=== PATIENT | female | born 1950 | race Caucasian/White ===

== ENCOUNTER 2017-04-18 13:48 | Outpatient (RCR) | payer MEDICARE, SELFPAY ==
[2017-03-22 18:18] LABS: Prothrombin Time (Protime)PT. 37.6 SECONDS (11.7-14.9)
[2017-03-22 18:21] LABS: International Normalized Ratio 4.1
[2017-04-06 16:35] LABS: Prothrombin Time (Protime)PT. 29.6 SECONDS (11.7-14.9)
[2017-04-06 18:10] LABS: Anion Gap 9 (5-15); BUN 23 mg/dL (7-18); BUN/Creat Ratio 18.1 RATIO (10-20); Calcium,Total 8.5 mg/dL (8.5-10.1); Chloride 103 mmol/L (98-107); Creatinine, Serum 1.27 mg/dL (0.55-1.02); EST Glomerular Filtration Rate 44 mL/min (>60); Est Glom Filt Rate - Afr Amer 54 mL/min (>60); Glucose 95 mg/dL (70-110); Sodium Level 140 mmol/L (136-145)
[2017-04-18 14:17] LABS: International Normalized Ratio 3.3; Prothrombin Time (Protime)PT. 32.1 SECONDS (11.7-14.9)
[2017-04-18 14:31] LABS: Anion Gap 9 (5-15); BUN 37 mg/dL (7-18); BUN/Creat Ratio 21.8 RATIO (10-20); Calcium,Total 8.7 mg/dL (8.5-10.1); Chloride 99 mmol/L (98-107); EST Glomerular Filtration Rate 32 mL/min (>60); Est Glom Filt Rate - Afr Amer 38 mL/min (>60); Glucose 342 mg/dL (70-110); Potassium 3.8 mmol/L (3.5-5.1); Sodium Level 134 mmol/L (136-145)
== END 2017-04-20 23:59 ==
LOC: INT LAB 13:48
PROVIDERS: PCP Internal Medicine; Visit Provider Internal Medicine Cardiovascular Disease
DX: I48.2 Chronic atrial fibrillation (principal)
CPT/HCPCS: 36415; 80048; 85610

== ENCOUNTER → 2017-04-22 09:03 | Day surgery (SDC) | payer MEDICARE, SELFPAY ==
[2017-04-21 12:17] VITALS: BMI 43.2
[2017-04-22 10:06] LABS: Bedside Glucose 135 mg/dL (70-110)
--- NOTE | 2017-04-22 10:51 | PCM.OP.BLANK ---
Problem List (1) Persistent atrial fibrillation Status: Chronic Operative Report Date of Procedure: 04/22/17 Cardioversion report: Patient was brought to the [facility] in the fasting state. The risks/benefits of the procedure were thoroughly explained to the patient and informed consent was obtained. The defibrillator pads were placed in the AP position and connected to the defibrillator. Mode of operation was changed to synchronized at 200 J biphasic energy delivered. With the assistance of Dr. Gustavo Schwarz the patient was given a total of 80 mg of IV propofol. Once adequate sedation was obtained, the patient was given a single 200 J biphasic synchronized shock which converted her to normal sinus rhythm on the initial attempt. Patient spontaneously awoke, moves all 4 extremities and tolerated the procedure well. Conclusions: Successful Cardizem and warfarin assisted DC cardioversion with a single 200 J biphasic synchronized shock. Patient spontaneously awoke, moves all 4 extremities and tolerated the procedure well.
--- NOTE | 2017-04-22 10:58 | OP.PCM_ITS ---
Problem List (1) Persistent atrial fibrillation Status: Chronic Operative Report Date of Procedure: 04/22/17 Cardioversion report: Patient was brought to the [facility] in the fasting state. The risks/benefits of the procedure were thoroughly explained to the patient and informed consent was obtained. The defibrillator pads were placed in the AP position and connected to the defibrillator. Mode of operation was changed to synchronized at 200 J biphasic energy delivered. With the assistance of Dr. Gustavo Schwarz the patient was given a total of 80 mg of IV propofol. Once adequate sedation was obtained, the patient was given a single 200 J biphasic synchronized shock which converted her to normal sinus rhythm on the initial attempt. Patient spontaneously awoke, moves all 4 extremities and tolerated the procedure well. Conclusions: Successful Cardizem and warfarin assisted DC cardioversion with a single 200 J biphasic synchronized shock. Patient spontaneously awoke, moves all 4 extremities and tolerated the procedure well.
--- NOTE | 2017-04-22 11:54 | PCM.OP.BLANK ---
Operative Report Date of Procedure: 04/22/17 CONSCIOUS SEDATION REPORT DATE OF SERVICE: March 22, 2017 BRIEF HISTORY OF PRESENT ILLNESS: The patient is a 66-year-old female who presented to [facility] for an elective outpatient cardioversion due to underlying atrial fibrillation. The patient is currently anticoagulated on Coumadin. She does have a history of obstructive sleep apnea and admits to current noncompliance with the use of nocturnal noninvasive positive pressure ventilation. She does have a self-reported history of COPD of unknown severity. She does not utilize supplemental oxygen at her baseline. Her most recent surface echocardiogram revealed an ejection fraction of approximately 50%. PHYSICAL EXAMINATION: VITAL SIGNS: Reviewed and were acceptable. GENERAL: The patient is an obese female, in no apparent distress, speaking in full sentences. HEENT: Normocephalic, atraumatic. Mucous membranes are moist and pink. Good mouth opening noted. Trachea is midline. Large neck circumference with redundant soft tissue CHEST: S1, S2 irregularly irregular. No murmurs, rubs or gallops were noted. LUNGS: Diminished to auscultation bilaterally without appreciable wheezes, rales or rhonchi. ABDOMEN: Soft, nontender, nondistended. Positive bowel sounds. Obese. EXTREMITIES: There is no clubbing, cyanosis or edema. ASA Class: II DESCRIPTION OF PROCEDURE: After confirmation of informed consent, the patient's anesthesia plan was reviewed in detail. Propofol was chosen. Risks and benefits were reviewed and the patient agreed to proceed. At 1032, the patient was given 80 mg of propofol. The patient achieved an appropriate level of sedation and was given a 200 joule synchronized cardioversion by Dr. Peraza at the bedside. This was successful in achieving normal sinus rhythm. The patient was monitored until 1042, at which time she reached her baseline mental status and function. The patient tolerated the procedure well. COMPLICATIONS: None ESTIMATED BLOOD LOSS: None RECOMMENDATIONS: Okay to recover in usual fashion.
--- NOTE | 2017-04-22 11:58 | OP.PCM_ITS ---
Operative Report Date of Procedure: 04/22/17 CONSCIOUS SEDATION REPORT DATE OF SERVICE: March 22, 2017 BRIEF HISTORY OF PRESENT ILLNESS: The patient is a 66-year-old female who presented to [facility] for an elective outpatient cardioversion due to underlying atrial fibrillation. The patient is currently anticoagulated on Coumadin. She does have a history of obstructive sleep apnea and admits to current noncompliance with the use of nocturnal noninvasive positive pressure ventilation. She does have a self- reported history of COPD of unknown severity. She does not utilize supplemental oxygen at her baseline. Her most recent surface echocardiogram revealed an ejection fraction of approximately 50%. PHYSICAL EXAMINATION: VITAL SIGNS: Reviewed and were acceptable. GENERAL: The patient is an obese female, in no apparent distress, speaking in full sentences. HEENT: Normocephalic, atraumatic. Mucous membranes are moist and pink. Good mouth opening noted. Trachea is midline. Large neck circumference with redundant soft tissue CHEST: S1, S2 irregularly irregular. No murmurs, rubs or gallops were noted. LUNGS: Diminished to auscultation bilaterally without appreciable wheezes, rales or rhonchi. ABDOMEN: Soft, nontender, nondistended. Positive bowel sounds. Obese. EXTREMITIES: There is no clubbing, cyanosis or edema. ASA Class: II DESCRIPTION OF PROCEDURE: After confirmation of informed consent, the patient's anesthesia plan was reviewed in detail. Propofol was chosen. Risks and benefits were reviewed and the patient agreed to proceed. At 1032, the patient was given 80 mg of propofol. The patient achieved an appropriate level of sedation and was given a 200 joule synchronized cardioversion by Dr. Peraza at the bedside. This was successful in achieving normal sinus rhythm. The patient was monitored until 1042, at which time she reached her baseline mental status and function. The patient tolerated the procedure well. COMPLICATIONS: None ESTIMATED BLOOD LOSS: None RECOMMENDATIONS: Okay to recover in usual fashion.
== END ==
PROVIDERS: Family Provider Internal Medicine; PCP Internal Medicine; Visit Provider Internal Medicine Cardiovascular Disease
DX: I48.1 Persistent atrial fibrillation (principal); Z79.01 Long term (current) use of anticoagulants; I11.0 Hypertensive heart disease with heart failure; I50.32 Chronic diastolic (congestive) heart failure; Z79.82 Long term (current) use of aspirin; Z85.828 Personal history of other malignant neoplasm of skin; Z98.890 Other specified postprocedural states; E66.01 Morbid (severe) obesity due to excess calories; Z68.41 Body mass index [BMI] 40.0-44.9, adult; E78.5 Hyperlipidemia, unspecified; G47.33 Obstructive sleep apnea (adult) (pediatric); J44.9 Chronic obstructive pulmonary disease, unspecified; E11.9 Type 2 diabetes mellitus without complications; Z79.4 Long term (current) use of insulin; D50.9 Iron deficiency anemia, unspecified; Z79.899 Other long term (current) drug therapy
CPT/HCPCS: 36416; 82962; 85610; 92960; 93005; J7040; A4216

== ENCOUNTER 2017-05-09 14:43 | Outpatient (RCR) | payer MEDICARE, SELFPAY ==
[2017-04-18 14:33] VITALS: BP 70/0; BMI 43.2
[2017-05-09 16:34] LABS: International Normalized Ratio 1.2; Prothrombin Time (Protime)PT. 14.9 SECONDS (11.7-14.9)
== END 2017-05-18 23:59 ==
LOC: INT LAB 14:43
PROVIDERS: Family Provider Internal Medicine; PCP Internal Medicine; Visit Provider Internal Medicine Cardiovascular Disease
DX: I48.2 Chronic atrial fibrillation (principal)
CPT/HCPCS: 36415; 85610

== ENCOUNTER 2017-06-16 13:57 | Outpatient (RCR) | payer MEDICARE, SELFPAY ==
[2017-06-02 17:54] LABS: International Normalized Ratio 2.1; Prothrombin Time (Protime)PT. 23.7 SECONDS (11.7-14.9)
[2017-06-16 15:41] LABS: International Normalized Ratio 1.6
== END 2017-06-18 23:59 ==
LOC: INT LAB 13:57
PROVIDERS: Family Provider Internal Medicine; PCP Internal Medicine; Visit Provider Internal Medicine Cardiovascular Disease
DX: I48.2 Chronic atrial fibrillation (principal)
CPT/HCPCS: 36415; 85610

== ENCOUNTER 2017-07-07 15:49 | Outpatient (RCR) | payer MEDICARE, SELFPAY ==
[2017-07-07 17:25] LABS: International Normalized Ratio 2.1; Prothrombin Time (Protime)PT. 23.8 SECONDS (11.7-14.9)
== END 2017-07-18 23:59 ==
LOC: INT LAB 15:49
PROVIDERS: Family Provider Internal Medicine; PCP Internal Medicine; Visit Provider Internal Medicine Cardiovascular Disease
DX: I48.2 Chronic atrial fibrillation (principal)
CPT/HCPCS: 36415; 85610

== ENCOUNTER 2017-08-03 15:02 | Emergency (ER) | payer MEDICARE, SELFPAY ==
[2017-08-03 15:03] VITALS: BP 159/81; PULSE 54; RESP 18; TEMP 36.6; O2SAT 98; BMI 44.8
[2017-08-03 15:48] LABS: Absolute Lymphocyte Count 0.92 X10^3/ul (0.83-4.51); Absolute Neutrophil Count 6.7 X10^3/uL (2.0-7.7); Basophil# 0.04 X10^3/uL; Basophil% 0.5 % (0-1); Eosinophil# 0.17 X10^3/uL; Hematocrit 35.2 % (37-47); Lymphocyte # 0.92 X10^3/ul (4.0); Mean Corp Hgb Conc 31.3 g/gl (32-36); Mean Corpuscular Hgb 28.7 pg (27.0-32.0); Mean Corpuscular Volume 91.9 fL (81-99); Mean Platelet Vol. 11.8 fl (6.2-12.0); Monocyte# 0.53 X10^3/uL; Monocyte% 6.3 % (0-10); Neutrophil # 6.68 X10^3/uL (2.7-7.7); Platelet Count 256 K/mm3 (150-450); RBC Distribution Width CV 14.3 % (11.6-14.6); RBC Distribution Width SD 46.9 fl (35.1-43.9); Red Blood Count 3.83 M/mm3 (4.2-5.4); White Blood Count 8.4 K/mm3 (4.4-11.0)
[2017-08-03 15:50] LABS: POSITIVE COUNT NO; POSITIVE DIFFERENTIAL NO; POSITIVE MORPHOLOGY NO
--- NOTE | 2017-08-03 16:31 | EKG12_ITS ---
Test Reason : EDEMA Blood Pressure : / mmHG Vent. Rate : 046 BPM Atrial Rate : 046 BPM P-R Int : 230 ms QRS Dur : 094 ms QT Int : 516 ms P-R-T Axes : 069 022 076 degrees QTc Int : 451 ms Sinus bradycardia with 1st degree A-V block with Premature atrial complexes Otherwise normal ECG Confirmed by DEDE PAREDES, FABY ([id number]), marketing editor FARNAZ BRITO ([id number] on 08/05/2017 1:38:08 PM Referred By: D Confirmed By:FABY AGUAYO MD
--- NOTE | 2017-08-03 16:34 | ED.DCSUM_ITS ---
- ER Visit Summary Date of Service: 08/03/17 Chief Complaint: Edema History of Present Illness: The patient is a 67 F with a history of CHF presenting with increased lower extremity edema and orthopnea for 3 days. She states that she has gained 8 pounds in 1 week. She has mild abdominal edema as well. She states that this feels similar to prior CHF exacerbations and she feels that she may need intravenous Lasix. She is currently on 40 mg 3 times a day. She did have an upper respiratory infection 3 weeks ago and completed a course of prednisone from her primary care physician and this mostly resolved. She has no chest pain, diaphoresis, or other anginal type symptoms. Denies any other recent illness or inciting cause. Physical Examination: Vital signs are within normal limits. She is only mildly hypertensive at 159/81. Pulse oximetry is 98% on room air. She is not in distress. Breath sounds are somewhat diminished at both bases. Mild abdominal edema. 3+ symmetric lower extremity edema. No tenderness along lower extremity venous system. Strong distal pulses. Normal neurologic examination. Test Results: CBC and BMP are both normal. Beta natruretic peptide not elevated. It was 48.5. EKG is unremarkable. Chest x-ray reveals chronic changes and cardiomegaly but no acute process. Emergency Department Course and Treatment: Was given 20 mg of IV Lasix here. Her labs are fairly unremarkable. Beta natruretic peptide is not significantly elevated. She has had no chest pain or atypical cardiac type symptoms at all. I do not feel she needs a troponin. Chest x-ray negative for significant pulmonary edema. She looks well and is feeling much better. I believe she can safely follow-up with her php wordpress developer as an outpatient. Treatment Plan: Follow-up with cardiology Disposition: Home stable condition Impression: Initial encounter lower extremity edema This note was generated with [employer] dictation software. It may contain incorrect words, spelling, and punctuation that were not noted in review of the chart prior to signing ED Disposition - Plan for ED Patient: Chief Complaint: Edema Instructions: ED Leg Swelling Bilateral Referrals: Nigel Hoang Jr., MD [Primary Care Provider] -
[2017-08-03 16:47] LABS: Anion Gap 9 (5-15); BUN 21 mg/dL (7-18); BUN/Creat Ratio 18.8 RATIO (10-20); Calcium,Total 8.4 mg/dL (8.5-10.1); Chloride 101 mmol/L (98-107); Creatinine, Serum 1.12 mg/dL (0.55-1.02); EST Glomerular Filtration Rate 51 mL/min (>60); Est Glom Filt Rate - Afr Amer 62 mL/min (>60); Estimated Creatinine Clearance 39.22 ml/min; Glucose 204 mg/dL (74-106); Potassium 3.6 mmol/L (3.5-5.1); Sodium Level 138 mmol/L (136-145)
[2017-08-03 16:50] VITALS: PULSE 49; RESP 17; O2SAT 95
--- NOTE | 2017-08-03 17:10 | RAD_ITS ---
STUDY: X-RAY CHEST REASON FOR EXAM: Female, 67 years old. Increasing edema for 3 days. Shortness of breath. TECHNIQUE: PA and lateral views of the chest. COMPARISON: January 26, 2017. FINDINGS: The lungs are clear and expanded. There is no demonstrated pleural abnormality. There is borderline cardiomegaly. Normal mediastinum and barbara. Normal visualized pulmonary arteries. Normal visualized aortic arch and descending thoracic aorta. There are diffuse degenerative changes of the visualized thoracic spine. There is degenerative osteoarthritis of the bilateral shoulders. There is no demonstrated abnormality of the visualized soft tissue structures of the upper abdomen. RAD/Chest PA and Lateral IMPRESSION: Borderline cardiomegaly without acute pulmonary disease. Electronically Signed: Josemanuel Patino DO at 17:38 EDT Tel [phone], Service support ,
[2017-08-03 17:32] LABS: International Normalized Ratio 1.3; Prothrombin Time (Protime)PT. 16.5 SECONDS (11.7-14.9)
[2017-08-03 17:57] LABS: BNP,B-Type NATRIURETIC PEPTIDE 48.5 pg/mL (0-100)
[2017-08-03 18:06] LABS: Bedside Glucose 98 mg/dL (70-110)
[2017-08-03 18:11] VITALS: BP 136/72; PULSE 50; RESP 16; O2SAT 96
[2017-08-03] MEDS: Furosemide 20 MG/2 ML VIAL IV (18:12)
== END 2017-08-03 18:22 | disposition home or self-care (01) ==
PROVIDERS: Emergency Provider Emergency Medicine; Family Provider Internal Medicine; PCP Internal Medicine
DX: R60.0 Localized edema (principal); I11.0 Hypertensive heart disease with heart failure; I50.9 Heart failure, unspecified; E78.00 Pure hypercholesterolemia, unspecified; E11.9 Type 2 diabetes mellitus without complications; E66.9 Obesity, unspecified; Z68.41 Body mass index [BMI] 40.0-44.9, adult; Z79.4 Long term (current) use of insulin; Z79.84 Long term (current) use of oral hypoglycemic drugs; Z79.82 Long term (current) use of aspirin; Z79.01 Long term (current) use of anticoagulants; Z79.899 Other long term (current) drug therapy
CPT/HCPCS: 71046; 80048; 82962; 83880; 85025; 85610; 93005; 94760; 96374; 99282; A4216; J1940

== ENCOUNTER 2017-08-23 17:10 | Observation (INO) | payer MEDICARE, SELFPAY ==
--- NOTE | 2017-08-23 22:30 | DT_ITS ---
This patient was seen during an EMR downtime August 22, 2017 - August 29, 2017. This patient may have a combination of paper and electronic documentation or all paper documentation. All documentation is viewable within the e-chart portion of [employer] for each patient visit.
[2017-08-26 09:39] LABS: Basophil% 0.7 % (0-1); Eosinophils% 2.9 % (0-5); Hematocrit 33.8 % (37-47); Hemoglobin 10.5 g/dl (12.0-15.0); Mean Corp Hgb Conc 31.1 g/gl (32-36); Mean Corpuscular Hgb 28.6 pg (27.0-32.0); Mean Corpuscular Volume 92.1 fL (81-99); Mean Platelet Vol. 12.4 fl (6.2-12.0); Neutrophil % 69.1 % (47-70); POSITIVE COUNT NO; POSITIVE DIFFERENTIAL NO; POSITIVE MORPHOLOGY NO; Platelet Count 278 K/mm3 (150-450); RBC Distribution Width CV 14.2 % (11.6-14.6); RBC Distribution Width SD 46.8 fl (35.1-43.9); Red Blood Count 3.67 M/mm3 (4.2-5.4); White Blood Count 9.8 K/mm3 (4.4-11.0)
[2017-08-26 09:40] LABS: Absolute Lymphocyte Count 1.76 X10^3/ul (0.83-4.51); Absolute Neutrophil Count 6.8 X10^3/uL (2.0-7.7); Basophil# 0.07 X10^3/uL; Eosinophil# 0.28 X10^3/uL; Lymphocyte # 1.76 X10^3/ul (4.0); Monocyte# 0.88 X10^3/uL; Neutrophil # 6.75 X10^3/uL (2.7-7.7)
[2017-08-26 09:41] LABS: Partial Thromboplast Time 58.1 Seconds (24.1-36.2); Prothrombin Time (Protime)PT. 22.4 SECONDS (11.7-14.9)
[2017-08-27 07:27] LABS: Anion Gap 10 (5-15); BUN 37 mg/dL (7-18); BUN/Creat Ratio 26.4 RATIO (10-20); Calcium,Total 7.9 mg/dL (8.5-10.1); Chloride 100 mmol/L (98-107); EST Glomerular Filtration Rate 40 mL/min (>60); Est Glom Filt Rate - Afr Amer 48 mL/min (>60); Glucose 149 mg/dL (74-106); Potassium 3.4 mmol/L (3.5-5.1); Sodium Level 141 mmol/L (136-145)
[2017-08-27 08:35] LABS: Absolute Lymphocyte Count 0.95 X10^3/ul (0.83-4.51); Absolute Neutrophil Count 4.9 X10^3/uL (2.0-7.7); Basophil% 0.3 % (0-1); Hematocrit 29.5 % (37-47); Hemoglobin 9.3 g/dl (12.0-15.0); Lymphocyte # 0.95 X10^3/ul (4.0); Lymphocyte % 14.5 % (19-41); Mean Corp Hgb Conc 31.5 g/gl (32-36); Mean Corpuscular Hgb 27.9 pg (27.0-32.0); Mean Corpuscular Volume 88.6 fL (81-99); Mean Platelet Vol. 11.5 fl (6.2-12.0); Monocyte% 8.7 % (0-10); Neutrophil # 4.85 X10^3/uL (2.7-7.7); Neutrophil % 74.3 % (47-70); POSITIVE COUNT NO; POSITIVE DIFFERENTIAL NO; POSITIVE MORPHOLOGY NO; Platelet Count 227 K/mm3 (150-450); RBC Distribution Width CV 14.3 % (11.6-14.6); RBC Distribution Width SD 46.6 fl (35.1-43.9); Red Blood Count 3.33 M/mm3 (4.2-5.4); White Blood Count 6.5 K/mm3 (4.4-11.0)
[2017-08-27 08:36] LABS: Basophil# 0.02 X10^3/uL; Eosinophil# 0.13 X10^3/uL; International Normalized Ratio 1.8; Monocyte# 0.57 X10^3/uL; Prothrombin Time (Protime)PT. 21.2 SECONDS (11.7-14.9)
[2017-08-30 13:24] LABS: Bedside Glucose 143 mg/dL (70-110)
[2017-08-30 13:25] LABS: Bedside Glucose 158 mg/dL (70-110)
== END 2017-08-24 14:02 | disposition home or self-care (01) ==
LOC: ED 08-24 16:08 → MS3 08-24 16:15
PROVIDERS: Emergency Medicine; Family Medicine; Admitting Provider Obstetrics & Gynecology; Family Provider Internal Medicine; PCP Internal Medicine; Visit Provider Obstetrics & Gynecology
DX: S31.41XA Laceration without foreign body of vagina and vulva, initial encounter (principal); D62 Acute posthemorrhagic anemia; D64.9 Anemia, unspecified; I48.0 Paroxysmal atrial fibrillation; I11.0 Hypertensive heart disease with heart failure; I50.9 Heart failure, unspecified; E11.9 Type 2 diabetes mellitus without complications; J44.9 Chronic obstructive pulmonary disease, unspecified; E66.01 Morbid (severe) obesity due to excess calories; G47.33 Obstructive sleep apnea (adult) (pediatric); E78.5 Hyperlipidemia, unspecified; K21.9 Gastro-esophageal reflux disease without esophagitis; Z85.828 Personal history of other malignant neoplasm of skin; Z79.4 Long term (current) use of insulin; Z79.01 Long term (current) use of anticoagulants; Z79.82 Long term (current) use of aspirin; Z79.891 Long term (current) use of opiate analgesic; Z79.899 Other long term (current) drug therapy; X58.XXXA Exposure to other specified factors, initial encounter; Y93.89 Activity, other specified; Y92.009 Unspecified place in unspecified non-institutional (private) residence as the place of occurrence of the external cause; Y99.8 Other external cause status
CPT/HCPCS: 51702; 80048; 82962; 85025; 85610; 85730; 94640; 94660; 96360; 96361; 99218; 99285; J7030; A4216; G0378

== ENCOUNTER 2017-09-28 14:06 | Emergency (ER) | payer MEDICARE, SELFPAY ==
[2017-09-28 14:07] VITALS: BP 153/69; PULSE 55; RESP 18; TEMP 36.6; O2SAT 98; BMI 43.2
--- NOTE | 2017-09-28 14:52 | CT_ITS ---
STUDY: CT PARANASAL SINUSES WITH CONTRAST REASON FOR EXAM: Female, 67 years old. Right facial pain. Unable to open the mouth. History of TMJ arthritis. RADIATION DOSAGE (If Supplied By Facility): CTDIvol = ( 29.38 ) mGy, DLP = ( 608.99 ) mGycm TECHNIQUE: The patient was scanned in a multi-detector CT scanner. High resolution transaxial imaging was performed following the intravenous administration of 50 ml of Isovue 370 contrast material. Sagittal and coronal images were reconstructed. Individualized dose optimization techniques were used for this CT. COMPARISON: None. FINDINGS: FRONTAL SINUSES: Normal development and aeration of the bilateral frontal sinuses without mucosal inflammatory disease. ETHMOIDAL SINUSES: Normal development and aeration of the bilateral ethmoidal air cells without mucosal inflammatory disease. MAXILLARY SINUSES: Minimal mucosal thickening of the inferior right maxillary sinus and around the maxillary ostia and infundibulum. Minimal area of mucosal thickening in the inferior left maxillary sinus and around the ostium and infundibulum. SPHENOIDAL SINUSES: Mild area of mucosal thickening in the right sphenoid sinus. OMU: Normal aeration of the bilateral maxillary infundibulum. Normal uncinate process, ethmoid bulla, and hiatus semilunaris. MIDDLE TURBINATES: Partially paradoxical middle turbinates. INFERIOR TURBINATES: Normal bilateral inferior turbinates. NASAL SEPTUM: Large anterior nasal septal defect/cartilaginous septum with a normal bony nasal septum. Minor left deviation of the posterior bony septum. Normal anterior cranial fossa, delfino marquise and cribriform plate. Normal bilateral orbital contents. Normal nasopharynx without adenoidal pad hypertrophy, or a posterior nasopharyngeal retention cyst. The right temporomandibular joint is located. There is a marked narrowing and a prominent anterior osteophyte of the condyle and flattening of the condyle in general. The left temporomandibular joint is also narrowed. There is less flattening and osteophytic spurring of the condyle but the condyle subluxed anteriorly slightly. CT/Sinus/Facial Bone WITH Contras IMPRESSION: Advanced arthritic changes of the right temporomandibular joint with chronic flattening of the articular surface and a prominent anterior osteophyte. The right temporomandibular joint is located in a closed position. Moderate arthritic changes of the left mandibular condyle with slight anterior subluxation. Nonreduction with the mouth closed suggests disc pathology. Mild mucosal thickening of the right maxillary sinus inferiorly and around the maxillary ostium and infundibulum. Mild mucosal thickening of the left maxillary sinus inferiorly and around the maxillary ostium and infundibulum. Mild area of mucosal thickening in the right sphenoid sinus. Large defect of the cartilaginous septum. Slight left deviation of the bony nasal septum. Partially paradoxical middle turbinates. Electronically Signed: Agatha Cain MD at 18:06 EDT , Service support ,
[2017-09-28] MEDS: Ondansetron 4 MG/2 ML Vial IV (15:44)
[2017-09-28] MEDS: Morphine 4 MG/ML Syringe IV (15:44)
[2017-09-28 15:46] LABS: Absolute Neutrophil Count 6.6 X10^3/uL (2.0-7.7); Basophil# 0.02 X10^3/uL; Basophil% 0.2 % (0-1); Eosinophil# 0.18 X10^3/uL; Eosinophils% 2.2 % (0-5); Hematocrit 32.8 % (37-47); Hemoglobin 10.1 g/dl (12.0-15.0); Lymphocyte % 8.7 % (19-41); Mean Corp Hgb Conc 30.8 g/gl (32-36); Mean Corpuscular Hgb 27.7 pg (27.0-32.0); Mean Corpuscular Volume 90.1 fL (81-99); Mean Platelet Vol. 11.4 fl (6.2-12.0); Monocyte# 0.58 X10^3/uL; Monocyte% 7.2 % (0-10); Neutrophil # 6.59 X10^3/uL (2.7-7.7); Neutrophil % 81.6 % (47-70); Platelet Count 240 K/mm3 (150-450); RBC Distribution Width CV 13.8 % (11.6-14.6); RBC Distribution Width SD 45.3 fl (35.1-43.9); Red Blood Count 3.64 M/mm3 (4.2-5.4); White Blood Count 8.1 K/mm3 (4.4-11.0)
[2017-09-28 15:47] LABS: POSITIVE COUNT NO; POSITIVE DIFFERENTIAL NO; POSITIVE MORPHOLOGY NO
[2017-09-28 16:00] LABS: Anion Gap 7 (5-15); BUN 15 mg/dL (7-18); BUN/Creat Ratio 13.4 RATIO (10-20); Calcium,Total 8.3 mg/dL (8.5-10.1); Chloride 104 mmol/L (98-107); Creatinine, Serum 1.12 mg/dL (0.55-1.02); EST Glomerular Filtration Rate 51 mL/min (>60); Est Glom Filt Rate - Afr Amer 62 mL/min (>60); Estimated Creatinine Clearance 39.22 ml/min; Glucose 272 mg/dL (74-106); Potassium 3.6 mmol/L (3.5-5.1); Sodium Level 142 mmol/L (136-145)
[2017-09-28 16:07] LABS: Erythrocyte Sedimentation Rate 26 mm/hr (0-30)
--- NOTE | 2017-09-28 16:07 | ED.VISSUMM ---
- ER Visit Summary Date of Service: 09/28/17: Patient was checked out to me to check CT results. CT facial shows advanced arthritic changes of the right temporomandibular joint with chronic flattening of the articular surface and a prominent anterior osteophyte. The right temporomandibular joint is located in a closed position. Moderate arthritic changes of the left mandibular condyle with slight anterior subluxation. Nonreduction with the mouth closed suggests disc pathology. Mild mucosal thickening of the right maxillary sinus inferiorly and around the maxillary ostium and infundibulum. Mild mucosal thickening of the left maxillary sinus inferiorly and around the maxillary ostium and infundibulum. Mild area of mucosal thickening in the right sphenoid sinus. Large defect of the cartilaginous septum. Slight left deviation of the bony nasal septum. Partially paradoxical middle turbinates. She has a scheduled appointment with her surgeon tomorrow at 3 PM. She will keep this appointment. She is advised return to ED if worsening complaints. This note was generated with [employer] dictation software. It may contain incorrect words, spelling, and punctuation that were not noted in review of the chart prior to signing <CintiaLinda - Last Filed: 09/28/17 18:30> - ER Visit Summary Date of Service: 09/28/17 Chief Complaint: Right jaw pain History of Present Illness: The patient is a 67 F who presents for right-sided jaw pain that is gradually worsening over 2 months. 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 There is a mass that is recurrent, and she had a needle biopsy on it that showed it was not currently cancerous. For the last 2 months she has been having gradually worsening dull ache in the right jaw that is gradually worsened and now patient is having difficulty opening her mouth and chewing. She saw her surgeon Dr. Jayden Cano 1 week ago and was told she has arthritis in the joint. She was referred for physical therapy but the patient states she cannot afford the gas to go there 3 times a week. Her baseline opening of her jaw is 41 cm after last surgery and last week was 21 cm. Patient denies fever, sore throat, difficulty swallowing, chest pain or shortness of breath. She is on Percocet for her chronic pain issues but not have any adequate pain control on her normal pain regimen. Patient is on Coumadin secondary to history of CHF. Patient also has history of diabetes, hypertension, osteoarthritis and skin cancer. Physical Examination: Patient is awake and alert sitting in bed, multiple scars to the soft tissues of the face, tender firm palpable mass to the right lower lip with associated surgical scar. Patient opens mouth actively a few centimeters and is able to passively open the mouth approximately 12 cm before crying out in pain. Tenderness to palpation of the TMJ without any fluctuance, erythema or induration. Neck has tenderness in the right anterior cervical chain region. No obvious palpable masses, unable to completely evaluate the oropharynx secondary to trismus. Patient has multiple contusions of the extremities, including a large area of ecchymosis on the left lower anterior gold. Test Results: [] Emergency Department Course and Treatment: Patient presents with gradually worsening trismus and jaw pain. Because no records available for review and with the trismus there is concerning for possible infection in the general region versus malignant mass, a CT of the maxillofacial structures was performed with contrast. Patient had no leukocytosis. No renal derangements. CRP elevated at 13.5. Patient was discussed with the clinical industrial hygiene manager for Dr. Cano's office. She made an emergency appointment tomorrow at 3 PM for the patient. Patient stated she can make this appointment. CT will be followed up by Dr. Chamberlain, and pending no acute findings requiring emergent management, patient will be discharged home. Treatment Plan: [] Disposition: [] Impression: TMJ pain, right This note was generated with [employer] dictation software. It may contain incorrect words, spelling, and punctuation that were not noted in review of the chart prior to signing <Justina Mabry - Last Filed: 10/01/17 00:34> ED Disposition <Linda Chamberlain - Last Filed: 09/28/17 18:30> <Justina Mabry - Last Filed: 10/01/17 00:34> - Plan for ED Patient: Disposition: Home or Assisted Living Chief Complaint: Other, Pain/Inj Instructions: ED TMJ Syndrome Referrals: Nigel Hoang Jr., MD [Primary Care Provider] - As Needed Doctor,Your [STAFF PHYSICIAN] - Keep Carolee appointment Additional Instructions: FOLLOW UP WITH DR. JAYDEN CANO TOMORROW AT 3PM AT HIS OFFICE. CALL IF YOU ARE UNABLE TO MAKE THIS APPOINTMENT AND NEED TO CHANGE THE TIME. Continue your home pain regimen as you have been prescribed by pain management. Eat soft foods or a liquid diet until you have followed up with Dr. Cano and received further guidance on treatment of your TMJ pain. If at any time you had difficulty breathing, difficulty swallowing, or any other concerns, please return to the emergency department immediately for another evaluation.
--- NOTE | 2017-09-28 16:38 | ED.DEP ---
ED Disposition - Plan for ED Patient: Disposition: Home or Assisted Living Chief Complaint: Other, Pain/Inj Instructions: ED TMJ Syndrome Referrals: Nigel Hoang Jr., MD [Primary Care Provider] - As Needed Doctor,Your [STAFF PHYSICIAN] - Keep Carolee appointment Additional Instructions: FOLLOW UP WITH DR. JAYDEN CANO TOMORROW AT 3PM AT HIS OFFICE. CALL IF YOU ARE UNABLE TO MAKE THIS APPOINTMENT AND NEED TO CHANGE THE TIME. Continue your home pain regimen as you have been prescribed by pain management. Eat soft foods or a liquid diet until you have followed up with Dr. Cano and received further guidance on treatment of your TMJ pain. If at any time you had difficulty breathing, difficulty swallowing, or any other concerns, please return to the emergency department immediately for another evaluation.
--- NOTE | 2017-09-28 16:41 | DCINST.ED_ITS ---
ED Disposition - Plan for ED Patient: Disposition: Home or Assisted Living Chief Complaint: Other, Pain/Inj Instructions: ED TMJ Syndrome Referrals: Nigel Hoang Jr., MD [Primary Care Provider] - As Needed Doctor,Your [STAFF PHYSICIAN] - Keep Carolee appointment Additional Instructions: FOLLOW UP WITH DR. JAYDEN CANO TOMORROW AT 3PM AT HIS OFFICE. CALL IF YOU ARE UNABLE TO MAKE THIS APPOINTMENT AND NEED TO CHANGE THE TIME. Continue your home pain regimen as you have been prescribed by pain management. Eat soft foods or a liquid diet until you have followed up with Dr. Cano and received further guidance on treatment of your TMJ pain. If at any time you had difficulty breathing, difficulty swallowing, or any other concerns, please return to the emergency department immediately for another evaluation.
[2017-09-28 16:55] VITALS: O2SAT 99
[2017-09-28 17:15] LABS: International Normalized Ratio 2.9; Prothrombin Time (Protime)PT. 30.1 SECONDS (11.7-14.9)
[2017-09-28 18:58] VITALS: BP 139/51; PULSE 67; RESP 16; O2SAT 100
== END 2017-09-28 18:59 | disposition home or self-care (01) ==
PROVIDERS: Emergency Provider Emergency Medicine; Family Provider Internal Medicine; PCP Internal Medicine
DX: M26.621 Arthralgia of right temporomandibular joint (principal); I11.0 Hypertensive heart disease with heart failure; I50.9 Heart failure, unspecified; M19.90 Unspecified osteoarthritis, unspecified site; E11.9 Type 2 diabetes mellitus without complications; Z79.4 Long term (current) use of insulin; Z79.84 Long term (current) use of oral hypoglycemic drugs; Z79.01 Long term (current) use of anticoagulants; Z79.82 Long term (current) use of aspirin; Z79.899 Other long term (current) drug therapy; Z85.828 Personal history of other malignant neoplasm of skin
CPT/HCPCS: 70487; 80048; 85025; 85610; 85652; 86140; 96374; 96375; 99285; J7040; J7050; Q9967; J2405

== ENCOUNTER 2017-10-09 14:04 | Emergency (ER) | payer MEDICARE, SELFPAY ==
[2017-10-09 14:04] VITALS: BP 103/71; PULSE 79; RESP 18; TEMP 36.9; O2SAT 97; BMI 42.1
--- NOTE | 2017-10-09 15:16 | ED.RN ---
pt states last time i was here they let me drive home pt informed that is against our policy. pt told that once her ride is here pain medication will be administered. pt states ok. informed pt as soon as her ride was present in the room an iv would be initiated and medication given. pt states no my ride cannot be here for hours yet. this rn informed pt that once ride was here pain medication would be given.pt arguing with this rn. discussed situation with dr carey. dr carey agrees no pain medication is to be given until pts ride is present in the room. charge nurse Karl aware of situation and plan made to hold pain medication until a ride is here in room. pt informed that as soon as ride is here we will happily give her pain medication.
--- NOTE | 2017-10-09 16:48 | ED.VISSUMM ---
- ER Visit Summary Date of Service: 10/09/17 Chief Complaint: Right TMJ pain History of Present Illness: The patient is a 67 F who presents because of right TMJ pain. She was seen recently by Dr. Justina Chen. She had a CT of the facial bones and TMJ joint because of trauma. She has been told she has significant arthritis. She has had 3 prior surgeries of her right TMJ joint. She denies any recent trauma. She denies fever, chills night sweats. She states he has not been able to open her mouth completely for 2 months. She is seeing a physical therapist who is massaging her muscles. There is no history of recent trauma. She denies fever, chills night sweats. She denies any ocular, visual or auditory symptoms. She is able to eat liquids and solids. There is been no history of drooling. Past medical history CHF, diabetes, hypertension, hypercholesterolemia, COPD, osteoarthritis and BMI greater than 40. Physical Examination: Vital signs are normal. She is afebrile. She has limited movement of her mandible. She does have TMJ tenderness. He has multiple well-healed facial scars. No discomfort pushing on the tragus or pulling on the auricle. External auditory canals normal. TMs normal. Heart is regular without murmur, gallop or rub. S1 and S2 are normal. Lungs are clear to auscultation with good movement of air bilaterally. Neuro exam is nonfocal. Test Results: None Emergency Department Course and Treatment: Plan was to medicate patient. She initially said she had a ride. Now she states she does not have a ride. She then stated that last time she was given morphine and permitted to drive herself home. She was informed it is the [facility] and [facility] policy not to allow patient to drive after administration of IV morphine. She requested talked to the charge nurse. The masses was reiterated that it is the policy not to administer IV morphine and have patient drive home. Treatment Plan: Patient was informed once her right is present and we verify that she does have a ride home and that that person will take her home she will be medicated. Disposition: Pending arrival of transportation Impression: Exacerbation of chronic right TMJ pain This note was generated with [employer] dictation software. It may contain incorrect words, spelling, and punctuation that were not noted in review of the chart prior to signing ED Disposition - Plan for ED Patient: Disposition: Home or Assisted Living Chief Complaint: Other, Pain/Inj Instructions: Common Myths About Pain Medications, ED Chronic Pain Management, ED TMJ Syndrome Referrals: Nigel Hoang Jr., MD [Primary Care Provider] - As Needed
--- NOTE | 2017-10-09 16:52 | ED.DCSUM_ITS ---
- ER Visit Summary Date of Service: 10/09/17 Chief Complaint: Right TMJ pain History of Present Illness: The patient is a 67 F who presents because of right TMJ pain. She was seen recently by Dr. Justina Chen. She had a CT of the facial bones and TMJ joint because of trauma. She has been told she has significant arthritis. She has had 3 prior surgeries of her right TMJ joint. She denies any recent trauma. She denies fever, chills night sweats. She states he has not been able to open her mouth completely for 2 months. She is seeing a physical therapist who is massaging her muscles. There is no history of recent trauma. She denies fever, chills night sweats. She denies any ocular, visual or auditory symptoms. She is able to eat liquids and solids. There is been no history of drooling. Past medical history CHF, diabetes, hypertension, hypercholesterolemia, COPD, osteoarthritis and BMI greater than 40. Physical Examination: Vital signs are normal. She is afebrile. She has limited movement of her mandible. She does have TMJ tenderness. He has multiple well-healed facial scars. No discomfort pushing on the tragus or pulling on the auricle. External auditory canals normal. TMs normal. Heart is regular without murmur, gallop or rub. S1 and S2 are normal. Lungs are clear to auscultation with good movement of air bilaterally. Neuro exam is nonfocal. Test Results: None Emergency Department Course and Treatment: Plan was to medicate patient. She initially said she had a ride. Now she states she does not have a ride. She then stated that last time she was given morphine and permitted to drive herself home. She was informed it is the [facility] and [facility] policy not to allow patient to drive after administration of IV morphine. She requested talked to the charge nurse. The masses was reiterated that it is the policy not to administer IV morphine and have patient drive home. Treatment Plan: Patient was informed once her right is present and we verify that she does have a ride home and that that person will take her home she will be medicated. Disposition: Pending arrival of transportation Impression: Exacerbation of chronic right TMJ pain This note was generated with [employer] dictation software. It may contain incorrect words, spelling, and punctuation that were not noted in review of the chart prior to signing ED Disposition - Plan for ED Patient: Disposition: Home or Assisted Living Chief Complaint: Other, Pain/Inj Instructions: Common Myths About Pain Medications, ED Chronic Pain Management, ED TMJ Syndrome Referrals: Nigel Hoang Jr., MD [Primary Care Provider] - As Needed
[2017-10-09] MEDS: morphine 8 MG/ML Syringe IV (19:19)
[2017-10-09] MEDS: Ondansetron 4 MG/2 ML Vial IV (19:20)
[2017-10-09 19:21] VITALS: BP 159/94; PULSE 94; RESP 18; O2SAT 99
[2017-10-09 19:42] VITALS: BP 144/83; PULSE 85; RESP 18; O2SAT 95
== END 2017-10-09 19:54 | disposition home or self-care (01) ==
PROVIDERS: Emergency Provider Emergency Medicine; Family Provider Internal Medicine; PCP Internal Medicine
DX: M26.621 Arthralgia of right temporomandibular joint (principal); G89.29 Other chronic pain; I11.0 Hypertensive heart disease with heart failure; I50.9 Heart failure, unspecified; E11.9 Type 2 diabetes mellitus without complications; E78.00 Pure hypercholesterolemia, unspecified; J44.9 Chronic obstructive pulmonary disease, unspecified; M19.90 Unspecified osteoarthritis, unspecified site; F12.90 Cannabis use, unspecified, uncomplicated; E66.9 Obesity, unspecified; Z68.41 Body mass index [BMI] 40.0-44.9, adult; Z85.828 Personal history of other malignant neoplasm of skin; Z79.01 Long term (current) use of anticoagulants; Z79.4 Long term (current) use of insulin; Z79.84 Long term (current) use of oral hypoglycemic drugs; Z79.82 Long term (current) use of aspirin; Z79.899 Other long term (current) drug therapy
CPT/HCPCS: 96374; 96375; 99284; A4216; J2405

== ENCOUNTER 2017-10-17 13:55 | Emergency (ER) | payer MEDICARE, SELFPAY ==
[2017-10-17 13:56] VITALS: BP 141/58; PULSE 80; RESP 18; TEMP 36.1; O2SAT 98; BMI 42.3
--- NOTE | 2017-10-17 14:49 | ED.VISSUMM ---
- ER Visit Summary Date of Service: 10/17/17 Chief Complaint: [Right-sided facial pain] History of Present Illness: The patient is a 67 F [presents the emergency department with complaint of right-sided facial pain. Patient states she has chronic pain issues related to TMJ. Patient states she had a fall several weeks ago and was seen in this department and had a CT scan of her facial bones however nothing significant was noted. Patient is currently in pain management and takes Percocet for her chronic pain however she states that she has had an exacerbation of her pain and has taken extra medicine and cannot refill her prescription until 2 days from today. Patient denies any new injury. She denies any fever. Patient states that she has had multiple surgeries related to cancer on her face and said multiple nerves cut and resected and she has chronic pain issues.] Physical Examination: [HEENT-PERRLA, EOMI. Cranial nerves II through XII grossly intact. TMs clear. Mucous membranes moist. No adenopathy. Multiple healed surgical scars noted to the face. Patient has pain with opening and closing of her mouth over the right TMJ. Patient has limited opening and closing of the mouth secondary to pain. No dental abscesses noted no significant dental pain on palpation noted. Cardiovascular-regular rate and rhythm without murmur or ectopy Lungs-clear to auscultation, chest wall stable without crepitus or subcu emphysema Abdomen-normoactive bowel sounds, soft, nontender, no rebound or rigidity, no peritoneal signs. Extremities-intact ?4, normal range of motion, normal pulses, atraumatic] Test Results: [None indicated] Emergency Department Course and Treatment: [I did perform an oars report on the patient and is noted that patient does get chronic Percocet prescriptions from her pain management doctor however no other significant scripts noted from other physicians. At this point I did give her 4 mg of morphine and 4 mg of Zofran IM. Patient understands I cannot write her any prescriptions given that she is in pain management and ran out of her pain medications early. 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 It may contain incorrect words, spelling, and punctuation that were not noted in review of the chart prior to signing ED Disposition - Plan for ED Patient: Chief Complaint: Other, Pain/Inj Referrals: Nigel Hoang Jr., MD [Primary Care Provider] -
--- NOTE | 2017-10-17 14:52 | ED.DCSUM_ITS ---
- ER Visit Summary Date of Service: 10/17/17 Chief Complaint: [Right-sided facial pain] History of Present Illness: The patient is a 67 F [presents the emergency department with complaint of right-sided facial pain. Patient states she has chronic pain issues related to TMJ. Patient states she had a fall several weeks ago and was seen in this department and had a CT scan of her facial bones however nothing significant was noted. Patient is currently in pain management and takes Percocet for her chronic pain however she states that she has had an exacerbation of her pain and has taken extra medicine and cannot refill her prescription until 2 days from today. Patient denies any new injury. She denies any fever. Patient states that she has had multiple surgeries related to cancer on her face and said multiple nerves cut and resected and she has chronic pain issues.] Physical Examination: [HEENT-PERRLA, EOMI. Cranial nerves II through XII grossly intact. TMs clear. Mucous membranes moist. No adenopathy. Multiple healed surgical scars noted to the face. Patient has pain with opening and closing of her mouth over the right TMJ. Patient has limited opening and closing of the mouth secondary to pain. No dental abscesses noted no significant dental pain on palpation noted. Cardiovascular-regular rate and rhythm without murmur or ectopy Lungs-clear to auscultation, chest wall stable without crepitus or subcu emphysema Abdomen-normoactive bowel sounds, soft, nontender, no rebound or rigidity, no peritoneal signs. Extremities-intact ?4, normal range of motion, normal pulses, atraumatic] Test Results: [None indicated] Emergency Department Course and Treatment: [I did perform an oars report on the patient and is noted that patient does get chronic Percocet prescriptions from her pain management doctor however no other significant scripts noted from other physicians. At this point I did give her 4 mg of morphine and 4 mg of Zofran IM. Patient understands I cannot write her any prescriptions given that she is in pain management and ran out of her pain medications early. 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 It may contain incorrect words, spelling, and punctuation that were not noted in review of the chart prior to signing ED Disposition - Plan for ED Patient: Chief Complaint: Other, Pain/Inj Referrals: Nigel Hoang Jr., MD [Primary Care Provider] -
--- NOTE | 2017-10-17 14:52 | ED.DEP ---
ED Disposition - Plan for ED Patient: Chief Complaint: Other, Pain/Inj Instructions: ED Chronic Pain Management Referrals: Nigel Hoang Jr., MD [Primary Care Provider] - 3-5 Days Additional Instructions: contact your pain specialist for further management of your chronic pain
[2017-10-17] MEDS: Ondansetron 4 MG/2 ML Vial IM (14:58)
[2017-10-17] MEDS: Morphine 4 MG/ML Syringe IM (14:58)
[2017-10-17 15:16] VITALS: PULSE 82; RESP 18; O2SAT 96
== END 2017-10-17 15:17 | disposition home or self-care (01) ==
LOC: ED 15:11
PROVIDERS: Emergency Provider Emergency Medicine; Family Provider Internal Medicine; PCP Internal Medicine
DX: M26.621 Arthralgia of right temporomandibular joint (principal); G89.29 Other chronic pain; I10 Essential (primary) hypertension; E78.00 Pure hypercholesterolemia, unspecified; E11.9 Type 2 diabetes mellitus without complications; Z79.4 Long term (current) use of insulin; Z79.891 Long term (current) use of opiate analgesic; Z79.01 Long term (current) use of anticoagulants; Z79.84 Long term (current) use of oral hypoglycemic drugs; Z79.899 Other long term (current) drug therapy
CPT/HCPCS: 96372; 99282; J2405

== ENCOUNTER 2017-11-18 22:20 | Emergency (ER) | payer MEDICARE, SELFPAY ==
[2017-11-18 22:20] VITALS: BP 150/75; PULSE 103; RESP 18; TEMP 36.1; O2SAT 97; BMI 42.1
[2017-11-18] MEDS: Ondansetron ODT 4 MG Tablet PO (22:47)
[2017-11-18] MEDS: Smz/Tmp Ds Tablet 1 TABLET PO (22:47)
[2017-11-18] MEDS: Cephalexin 250 MG Capsule 500 MG PO (22:47)
[2017-11-18] MEDS: morphine 10 MG/ML Syringe 4 MG SC (22:47)
--- NOTE | 2017-11-18 22:48 | ED.VISSUMM ---
- ER Visit Summary Date of Service: 11/18/17 Chief Complaint: Infection History of Present Illness: The patient is a 67 F with a history of skin cancer and multiple facial surgeries. She presents with swelling and pain to her chin that started gradually over several days. She noticed the lesion to her skin that was draining some pus. She denies fever or systemic symptoms. Denies any other new lesions or complaints. Physical Examination: Patient is hypertensive and heart rate is 103. Afebrile. Alert and oriented. Diffuse postoperative changes to her face which appears to be healed. There is a superficial abrasion with mild erythema to her left chin. Her right chin is indurated and right lower lip is indurated and tender to palpation. No drainage or bleeding noted. No fluctuance noted. Dentition unremarkable. The remainder of her exam is unremarkable. Test Results: None indicated Emergency Department Course and Treatment: Patient has what appears to be a superficial skin infection to her chin. There is some pain and induration to the right side of her chin, but it sounds like this is a chronic issue related to her postoperative changes. I do not appreciate any fluctuant lesions. Nothing to I&D at this point. We did discuss the risks and benefits. She is not septic. Will try antibiotics, Keflex. She has tolerated this in the past. She was treated with a dose of subcutaneous morphine for pain control. She is in pain management and will resume her home pain medications. I advised her to follow-up with her plastic surgeon for recheck. I believe a lot of these findings are postoperative changes. She will also follow-up for an INR check. The patient did receive 1 dose of Bactrim here before I realized she was on Coumadin. We will not prescribe Bactrim, but will treat with Keflex alone. I advised that may raise her INR, and she will follow up. Treatment Plan: As above Disposition: Discharge Impression: 1. Facial cellulitis This note was generated with [employer] dictation software. It may contain incorrect words, spelling, and punctuation that were not noted in review of the chart prior to signing ED Disposition - Plan for ED Patient: Chief Complaint: Abscess Instructions: ED Cellulitis Facial Prescriptions: Cephalexin [Keflex] 500 mg PO Q6 #28 cap Referrals: Nigel Hoang Jr., MD [Primary Care Provider] - Additional Instructions: follow up with your plastic surgeon
--- NOTE | 2017-11-18 22:53 | ED.DEP ---
ED Disposition - Plan for ED Patient: Chief Complaint: Abscess Instructions: ED Cellulitis Facial Prescriptions: Cephalexin [Keflex] 500 mg PO Q6 #28 cap Additional Instructions: follow up with your plastic surgeon
[2017-11-18 23:09] VITALS: BP 144/85; PULSE 85; RESP 18; O2SAT 98
== END 2017-11-18 23:11 | disposition home or self-care (01) ==
LOC: ED 22:53
PROVIDERS: Emergency Provider Emergency Medicine; Family Provider Internal Medicine; PCP Internal Medicine
DX: L03.211 Cellulitis of face (principal); B96.89 Other specified bacterial agents as the cause of diseases classified elsewhere; Z85.828 Personal history of other malignant neoplasm of skin; Z79.01 Long term (current) use of anticoagulants; I48.91 Unspecified atrial fibrillation; I11.0 Hypertensive heart disease with heart failure; I50.9 Heart failure, unspecified; E11.9 Type 2 diabetes mellitus without complications; J44.9 Chronic obstructive pulmonary disease, unspecified; Z79.4 Long term (current) use of insulin; Z79.82 Long term (current) use of aspirin; Z79.899 Other long term (current) drug therapy
CPT/HCPCS: 96372; 99283

== ENCOUNTER 2017-11-19 14:12 | Emergency (ER) | payer SELFPAY ==
[2017-11-19 14:14] VITALS: BP 121/92; PULSE 90; RESP 18; TEMP 36.7; O2SAT 97; BMI 42.8
--- NOTE | 2017-11-19 16:06 | ED.DCSUM_ITS ---
- ER Visit Summary Date of Service: 11/19/17 Chief Complaint: Pain to chin History of Present Illness: The patient is a [address] Nigel Hoang and is in pain management. She reports in December 2016 she had a skin cancer removed from the right side of her chin by Dr. Rodgers. She reports that she has had pain in this area ever since. States that approximately week ago the pain worsened. As a throbbing pain is 1010 at worst 9 out of 10 currently. Is worsened by eating. She had dose of morphine yesterday which did give her relief. She reports that she is out of her Percocet. Patient reports that she began Keflex yesterday. She denies any constitutional symptoms. No fever, chills, nausea, or vomiting. Physical Examination: Vitals: Stable. Afebrile. General: Well-nourished and well-developed. Head: Normocephalic atraumatic. There is scarring to the right side of her chin. There is overlying erythema. There is no fluctuance. I am unable to appreciate any induration. Neck: Supple, no lymphadenopathy. No JVD. Nontender. Cardiovascular: Regular rate and rhythm. No murmurs. Respiratory: No respiratory distress. Clear to auscultation bilaterally. Abdominal: Soft, nontender, nondistended, normal bowel sounds. No guarding, rebound, or peritoneal signs. Back: Nontender. Extremities: Nontender, no edema. Skin: Normal color, no rash. Neurologic: Alert and oriented ?3. Cranial nerves II through XII are intact. Normal strength and sensation. Psych: Normal affect. Emergency Department Course and Treatment: Patient was given a dose of morphine IM and Zofran p.o. At this time I do not feel that an I&D would be helpful. There is a considerable amount of scar tissue and no fluctuance. She is instructed to continue her Keflex. Treatment Plan: Patient be discharged instructed to continue her fact Keflex. Get her pain medications filled tomorrow as previously scheduled. Follow-up her primary care physician in 2 days for a wound check. Return to the emergency department for any worsening symptoms. Disposition: To home in improved and stable condition. Impression: 1. Cellulitis to chin. 2. Coumadin coagulopathy. This note was generated with [employer] software. It may contain incorrect words, spelling, and punctuation that were not noted in review of the chart prior to signing ED Disposition - Plan for ED Patient: Disposition: Home or Assisted Living Chief Complaint: Other, Pain/Inj Instructions: ED Cellulitis Facial Referrals: Nigel Hoang Jr., MD [Primary Care Provider] - 2 Days for wound check
[2017-11-19] MEDS: Ondansetron ODT 4 MG Tablet PO (16:34)
[2017-11-19] MEDS: Morphine 4 MG/ML Syringe IM (16:34)
[2017-11-19 16:54] VITALS: BP 155/85; PULSE 95; RESP 18
== END 2017-11-19 16:55 | disposition home or self-care (01) ==
LOC: ED 16:32
PROVIDERS: Emergency Provider Emergency Medicine; Family Provider Internal Medicine; PCP Internal Medicine
DX: L03.211 Cellulitis of face (principal); B96.89 Other specified bacterial agents as the cause of diseases classified elsewhere; I48.91 Unspecified atrial fibrillation; E11.9 Type 2 diabetes mellitus without complications; I11.0 Hypertensive heart disease with heart failure; I50.9 Heart failure, unspecified; J45.909 Unspecified asthma, uncomplicated; M19.90 Unspecified osteoarthritis, unspecified site; Z79.01 Long term (current) use of anticoagulants; Z79.4 Long term (current) use of insulin; Z79.899 Other long term (current) drug therapy; Z85.828 Personal history of other malignant neoplasm of skin
CPT/HCPCS: 96372; 99282

== ENCOUNTER 2017-11-28 13:27 | Emergency (ER) | payer MEDICARE, SELFPAY ==
[2017-11-28 13:27] VITALS: BP 98/63; PULSE 74; RESP 16; TEMP 36.2; O2SAT 96; BMI 41.8
[2017-11-28] MEDS: Morphine 4 MG/ML Syringe IV (16:12)
[2017-11-28] MEDS: Ondansetron 4 MG/2 ML Vial IV (16:12)
[2017-11-28 16:52] LABS: Anion Gap 9 (5-15); BUN 22 mg/dL (7-18); Calcium,Total 9.4 mg/dL (8.5-10.1); Chloride 100 mmol/L (98-107); Creatinine, Serum 1.57 mg/dL (0.55-1.02); EST Glomerular Filtration Rate 35 mL/min (>60); Est Glom Filt Rate - Afr Amer 42 mL/min (>60); Estimated Creatinine Clearance 27.98 ml/min; Glucose 113 mg/dL (74-106); Potassium 4.1 mmol/L (3.5-5.1); Sodium Level 138 mmol/L (136-145)
[2017-11-28 17:04] LABS: Prothrombin Time (Protime)PT. 60.9 SECONDS (11.7-14.9)
[2017-11-28 17:12] LABS: Absolute Lymphocyte Count 1.73 X10^3/ul (0.83-4.51); Absolute Neutrophil Count 8.6 X10^3/uL (2.0-7.7); Basophil# 0.04 X10^3/uL; Basophil% 0.3 % (0-1); Eosinophils% 1.7 % (0-5); Hematocrit 36.9 % (37-47); Hemoglobin 11.2 g/dl (12.0-15.0); Lymphocyte # 1.73 X10^3/ul (4.0); Mean Corp Hgb Conc 30.4 g/gl (32-36); Mean Corpuscular Hgb 27.8 pg (27.0-32.0); Mean Corpuscular Volume 91.6 fL (81-99); Mean Platelet Vol. 11.7 fl (6.2-12.0); Monocyte# 0.95 X10^3/uL; Monocyte% 8.3 % (0-10); Neutrophil # 8.57 X10^3/uL (2.7-7.7); Neutrophil % 74.5 % (47-70); Platelet Count 404 K/mm3 (150-450); RBC Distribution Width CV 14.7 % (11.6-14.6); RBC Distribution Width SD 49.3 fl (35.1-43.9); Red Blood Count 4.03 M/mm3 (4.2-5.4); White Blood Count 11.5 K/mm3 (4.4-11.0)
[2017-11-28 17:14] LABS: POSITIVE COUNT NO; POSITIVE DIFFERENTIAL NO; POSITIVE MORPHOLOGY NO
--- NOTE | 2017-11-28 17:22 | ED.VISSUMM ---
- ER Visit Summary Date of Service: 11/28/17 Chief Complaint: [Wound check] History of Present Illness: The patient is a 67 F [presents the emergency department with complaint of a wound to her chin that she has had for several months. Patient was seen in the ER about a week and a half ago and started on Keflex for suspected colitis. Patient states the area opened up yesterday and started draining large amount of purulent debris but it would not stop bleeding until this morning. Patient also states that she walked into the foot board of her bed the other day and has ecchymosis to her lower abdomen. Patient describes feeling intermittently lightheaded.] Physical Examination: [HEENT-PERRLA, EOMI. Cranial nerves II through XII grossly intact. TMs clear. Mucous membranes moist. No adenopathy. Patient has an excoriated lesion on the right side of her chin that is scabbed over. There is minimal faint erythema. There is no fluctuance. There is no active bleeding. Cardiovascular-irregularly irregular without murmur auscultated. Lungs-clear to auscultation, chest wall stable without crepitus or subcu emphysema Abdomen-normoactive bowel sounds, soft. Patient does have ecchymosis and bruising to the right lower quadrant left lower quadrant. Mild tenderness to palpation. There is no rebound, rigidity, or perineal signs. Extremities-intact ?4, normal range of motion, normal pulses, atraumatic] Test Results: [CBC with differential obtained showed a white count 11.5, hemoglobin 11.2, hematocrit 37, platelets 4 4. Chemistries unremarkable. Patient's INR was 7.] Emergency Department Course and Treatment: [Patient had orthostatic vital signs that were unremarkable. Patient case was discussed with Dr. Nomi Peraza who manages the patient's Coumadin and given that she is still in atrial fibrillation he asked that we just discontinue the Coumadin and have the patient have a repeat INR in 3 days.] She was medicated with 4 mg of morphine and 4 mill grams Zofran. Treatment Plan: [Patient to discontinue Coumadin and have it rechecked in 3 days.] Disposition: [Discharged home in stable condition] Impression: [Coumadin coagulopathy] Cellulitis right side of chin This note was generated with [employer] software. It may contain incorrect words, spelling, and punctuation that were not noted in review of the chart prior to signing ED Disposition - Plan for ED Patient: Chief Complaint: Wound Referrals: Nigel Hoang Jr., MD [Primary Care Provider] -
[2017-11-28 17:29] VITALS: BP 113/76; BP 131/96; BP 140/80; PULSE 80; PULSE 81; PULSE 82
--- NOTE | 2017-11-28 17:32 | ED.DEP ---
ED Disposition - Plan for ED Patient: Chief Complaint: Wound Instructions: ED Cellulitis Facial Referrals: Nigel Hoang Jr., MD [Primary Care Provider] - 3-5 Days Additional Instructions: Stop your coumadin and have level repeated in 3 days
[2017-11-28 17:39] VITALS: BP 123/94; PULSE 80; RESP 18; O2SAT 96
== END 2017-11-28 17:40 | disposition home or self-care (01) ==
LOC: ED 15:36
PROVIDERS: Emergency Provider Emergency Medicine; Family Provider Internal Medicine; PCP Internal Medicine
DX: L03.211 Cellulitis of face (principal); B96.89 Other specified bacterial agents as the cause of diseases classified elsewhere; I48.91 Unspecified atrial fibrillation; I11.0 Hypertensive heart disease with heart failure; I50.9 Heart failure, unspecified; E78.00 Pure hypercholesterolemia, unspecified; E11.9 Type 2 diabetes mellitus without complications; Z85.828 Personal history of other malignant neoplasm of skin; Z79.01 Long term (current) use of anticoagulants; Z79.82 Long term (current) use of aspirin; Z79.4 Long term (current) use of insulin; Z79.899 Other long term (current) drug therapy
CPT/HCPCS: 80048; 85025; 85610; 96374; 96375; 99285; A4216; J2405

== ENCOUNTER 2017-12-01 11:30 | Emergency (ER) | payer MEDICARE, SELFPAY ==
[2017-12-01 11:31] VITALS: BP 128/98; PULSE 105; RESP 16; TEMP 36.7; O2SAT 97; BMI 42.1
--- NOTE | 2017-12-01 11:55 | ED.DCSUM_ITS ---
- ER Visit Summary Date of Service: 12/01/17 Chief Complaint: Facial abscess History of Present Illness: The patient is a 67 F who presents with open wound to her lower lip that has been draining for the past 1-1/2 months. Patient states that drainage became worse today. Patient states she has been taking her Percocet at home with no relief. Patient denies any fevers or chills. Patient denies any difficulty swallowing. Patient denies any chest pain or shortness of breath. Patient does admit to a mild headache. Physical Examination: Vital signs are stable. Patient is afebrile. Patient is in no acute distress. Oral mucosa is pink and moist. There is an open draining area over the lower lip and chin area. There is no communication with the mucosal surface of the lower lip. There is some mild erythema. There is no fluctuance. I do not appreciate any active drainage. Neck is supple. Trachea is midline. There is no JVD noted. Heart was regular rate and rhythm. Lungs are clear and equal bilaterally. Cranial nerves II through XII are intact. There are no focal motor or sensory deficits noted. Emergency Department Course and Treatment: Patient was given a dose of morphine here. Patient was given a prescription for clindamycin. Patient was instructed to follow-up with her primary care physician and 5-7 days. Patient was also instructed to follow-up with her skin surgeon. Patient understood and was agreeable with the plan. All questions were answered. Disposition: Discharged home Impression: Facial abscess This note was generated with [employer] dictation software. It may contain incorrect words, spelling, and punctuation that were not noted in review of the chart prior to signing ED Disposition - Plan for ED Patient: Disposition: Home or Assisted Living Chief Complaint: Wound Diagnosis: Facial abscess Instructions: ED Wound Infec After Surgery Prescriptions: Clindamycin HCl [Cleocin] 300 mg PO Q6H #40 cap Referrals: Nigel Hoang Jr., MD [Primary Care Provider] -
[2017-12-01] MEDS: Morphine 2 MG/ML Syringe SC (12:12)
[2017-12-01] MEDS: Ondansetron ODT 4 MG Tablet PO (12:19)
== END 2017-12-01 13:21 | disposition home or self-care (01) ==
LOC: ED 11:57
PROVIDERS: Emergency Provider Emergency Medicine; Family Provider Internal Medicine; PCP Internal Medicine
DX: L02.01 Cutaneous abscess of face (principal); B96.89 Other specified bacterial agents as the cause of diseases classified elsewhere; I11.0 Hypertensive heart disease with heart failure; I50.9 Heart failure, unspecified; E78.00 Pure hypercholesterolemia, unspecified; E11.9 Type 2 diabetes mellitus without complications; Z79.4 Long term (current) use of insulin; Z79.01 Long term (current) use of anticoagulants; Z79.82 Long term (current) use of aspirin; Z79.899 Other long term (current) drug therapy
CPT/HCPCS: 96372; 99282

== ENCOUNTER 2017-12-03 16:02 | Inpatient (IN) | payer MEDICARE, SELFPAY ==
[2017-12-03 16:03] VITALS: BP 121/84; PULSE 103; RESP 18; TEMP 36.6; O2SAT 97; BMI 42.0
--- NOTE | 2017-12-03 16:39 | CT_ITS ---
STUDY: CT FACIAL BONES WITH CONTRAST REASON FOR EXAM: Female, 67 years old. Facial cellulitis. RADIATION DOSAGE (If Supplied By Facility): CTDIvol = ( 29.38 ) mGy, DLP = ( 657.65 ) mGycm TECHNIQUE: The patient was scanned in a multi detector CT scanner. Transaxial imaging was performed following the intravenous administration of 100 ml of Isovue 300 contrast material. Sagittal and coronal images were reconstructed. Individualized dose optimization techniques were used for this CT. COMPARISON: 09/28/2017. FINDINGS: There is mild nonspecific soft tissue swelling of the left face and around the left orbit without definite focal fluid collection or abscess. There is marked thickening and nodularity of the soft tissues involving the lower lip and anterior to the mandible. This is a significant change since the previous exam and suggests inflammatory process. Abscess in this area is possible. Given the history of skin cancer, this could also be malignancy although it is significant change since prior study. Correlate with direct visualization and physical exam. Normal orbital joaquin and orbital contents. Normal nasal bones and anterior nasal spine. Normal facial bones. There is no demonstrated fracture. Normal visualized paranasal sinuses. CT/Sinus/Facial Bone WITH Contras IMPRESSION: Mild nonspecific soft tissue swelling of the left side of the face. Prominent nodular soft tissue densities, or masses involving the lower left. This could be inflammatory, abscess not excluded, or neoplasm. Electronically Signed: Jewel Schaefer MD at 18:19 EDT , Service support ,
[2017-12-03 17:13] LABS: Absolute Lymphocyte Count 1.43 X10^3/ul (0.83-4.51); Absolute Neutrophil Count 6.3 X10^3/uL (2.0-7.7); Basophil# 0.04 X10^3/uL; Basophil% 0.5 % (0-1); Eosinophil# 0.22 X10^3/uL; Eosinophils% 2.5 % (0-5); Hematocrit 33.8 % (37-47); Hemoglobin 10.4 g/dl (12.0-15.0); International Normalized Ratio 1.7; Lymphocyte # 1.43 X10^3/ul (4.0); Lymphocyte % 16.3 % (19-41); Mean Corp Hgb Conc 30.8 g/gl (32-36); Mean Corpuscular Hgb 27.7 pg (27.0-32.0); Mean Corpuscular Volume 90.1 fL (81-99); Mean Platelet Vol. 10.8 fl (6.2-12.0); Monocyte# 0.75 X10^3/uL; Monocyte% 8.6 % (0-10); Neutrophil # 6.29 X10^3/uL (2.7-7.7); Neutrophil % 71.8 % (47-70); Platelet Count 346 K/mm3 (150-450); Prothrombin Time (Protime)PT. 19.8 SECONDS (11.7-14.9); RBC Distribution Width CV 14.4 % (11.6-14.6); RBC Distribution Width SD 47.8 fl (35.1-43.9); Red Blood Count 3.75 M/mm3 (4.2-5.4); White Blood Count 8.8 K/mm3 (4.4-11.0)
[2017-12-03 17:18] LABS: Anion Gap 7 (5-15); BUN 33 mg/dL (7-18); BUN/Creat Ratio 22.9 RATIO (10-20); Calcium,Total 8.3 mg/dL (8.5-10.1); Chloride 98 mmol/L (98-107); Creatinine, Serum 1.44 mg/dL (0.55-1.02); EST Glomerular Filtration Rate 38 mL/min (>60); Est Glom Filt Rate - Afr Amer 46 mL/min (>60); Glucose 176 mg/dL (74-106); Potassium 4.5 mmol/L (3.5-5.1); Sodium Level 135 mmol/L (136-145)
[2017-12-03 17:21] LABS: POSITIVE COUNT NO; POSITIVE DIFFERENTIAL NO; POSITIVE MORPHOLOGY NO
[2017-12-03] MEDS: Morphine 4 MG/ML Syringe IV (19:12)
[2017-12-03] MEDS: Ondansetron 4 MG/2 ML Vial IV (19:12)
[2017-12-03 19:16] VITALS: BP 146/107; PULSE 86; RESP 16; O2SAT 95
--- NOTE | 2017-12-03 19:17 | PCM.HP.STD ---
Problem List (1) Facial cellulitis Status: Acute (2) HTN (hypertension) Status: Chronic (3) Diabetes mellitus Status: Chronic (4) COPD (chronic obstructive pulmonary disease) Status: Chronic History of Present Illness Date of Admission: 12/03/17 Chief Complaint: Facial pain x 1-2 months. 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 She rates her pain as 9 on a scale of 1-10. Patient reported that her last facial surgery was in December 2016. She reports pus draining down her chin and a severe pain at the right side of her face and chin. Associated with symptoms is teeth pain; times making it difficult to chew.. She denied any chills or fever. Imaging of her sinus/facial bones with contrast showed mild nonspecific soft tissue swelling of the left side of the face; prominent nodular soft tissue density, or masses involving the lower left this could be inflammatory, abscess not excluded, or neoplasm. Outpatient patient was on Keflex and clindamycin. Past Medical History Past Medical History (Chronic Problems): Chronic Problems (Last Reviewed 10/25/17 @ 09:00 by Selina Richards) Asthma (Chronic) Obesity (Chronic) Atrial enlargement, left (Chronic) BMI 40.0-44.9, adult (Chronic) Chronic diastolic (congestive) heart failure (Chronic) Diastolic dysfunction (Chronic) Sinus bradycardia (Chronic) Fatigue (Chronic) Long-term use of high-risk medication (Chronic) Bilateral lower extremity edema (Chronic) History of cardioversion (Chronic ~10/01/16) H/O right and left heart catheterization (Chronic ~05/15/15) H/O basal cell carcinoma excision (Chronic) Recurrent basal cell carcinoma following excision (Chronic) Persistent atrial fibrillation (Chronic) Chronic diastolic heart failure (Chronic) 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) HTN (hypertension) (Chronic) HLD (hyperlipidemia) (Chronic) Diabetes mellitus (Chronic) COPD (chronic obstructive pulmonary disease) (Chronic) NICKOLAS (obstructive sleep apnea) (Chronic) Morbid obesity (Chronic) Basal cell carcinoma of face (Chronic) Left face-has had 2 surgeries so far the first in February of 2015 Medical History: Medical History (Last Reviewed 09/16/18 @ 01:53 by Sanjay Rhodes MD) Asthma (Chronic) J45.909 Obesity (Chronic) E66.9 Atrial enlargement, left (Chronic) I51.7 BMI 40.0-44.9, adult (Chronic) Z68.41 History of syncope (Acute) Z87.898 Chronic diastolic (congestive) heart failure (Chronic) I50.32 Diastolic dysfunction (Chronic) I51.9 Sinus bradycardia (Chronic) R00.1 Fatigue (Chronic) R53.83 Long-term use of high-risk medication (Chronic) Z79.899 Syncope (Acute) R55 Bilateral lower extremity edema (Chronic) R60.0 Recurrent basal cell carcinoma following excision (Chronic) C44.91 Persistent atrial fibrillation (Chronic) I48.1 Chronic diastolic heart failure (Chronic) I50.32 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) Z79.01 HTN (hypertension) (Chronic) I10 HLD (hyperlipidemia) (Chronic) E78.5 Diabetes mellitus (Chronic) E11.9 COPD (chronic obstructive pulmonary disease) (Chronic) J44.9 NICKOLAS (obstructive sleep apnea) (Chronic) G47.33 Morbid obesity (Chronic) E66.01 Basal cell carcinoma of face (Chronic) C44.310 Left face-has had 2 surgeries so far the first in February of 2015 Allergies ampicillin Allergy (Severe, Verified 12/03/17 16:05) Anaphylaxis hydrocodone bitartrate [From Vicodin] Allergy (Severe, Verified 12/03/17 16:05) Itching Penicillins Allergy (Severe, Verified 12/03/17 16:05) Anaphylaxis clarithromycin [From Biaxin] Allergy (Verified 12/03/17 16:05) Rash Red and itchy gabapentin [From Neurontin] Allergy (Verified 12/03/17 16:05) Other I GET ALL CRAZY venom-honey bee [bee venom (honey bee)] Allergy (Verified 12/03/17 16:05) Nausea/Vom/Diarrhea Home Medications: Ambulatory Orders Medication Instructions Recorded Calcium Carbonate [Calcium] 500 mg PO BID 04/13/15 Diazepam [Valium] 10 mg PO TID 04/13/15 Metformin HCl [Glucophage] 1,000 mg PO QHS 04/13/15 Metformin HCl [Glucophage] 500 mg PO BREAKFAST 04/13/15 Omeprazole [Prilosec] 40 mg PO DAILY 04/13/15 traZODone [Desyrel] 50 mg PO QHS 04/13/15 Aspirin [Aspirin, Baby] 81 mg PO DAILY@0800 tab.chew 04/18/15 Tizanidine HCl [Zanaflex] 2 mg PO TID 05/13/15 Oxycodone HCl/Acetaminophen 7.5 mg PO TID 07/20/16 [Percocet 10-325 mg Tablet] Albuterol Inhaler [Ventolin Hfa] 2 puff INHALATION Q4H PRN PRN #1 08/14/16 inhaler Cetirizine HCl [Zyrtec] 10 mg PO DAILY #30 cap 08/18/16 Ferrous Sulfate 325 mg PO DAILY@0800 #30 tab 08/18/16 Gabapentin [Neurontin] 600 mg PO TID 01/26/17 atorvastatin 20 mg tablet 20 mg PO QHS tab 03/09/17 lisinopril 20 mg tablet 20 mg PO QDAY 03/09/17 flecainide 150 mg tablet 150 mg PO Q12H #180 tab 04/18/17 insulin NPH isophane U-100 human 18 unit SC QPM 04/18/17 100 unit/mL subcutaneous suspension insulin lispro (U-100) 100 unit/mL 24 unit SC QAM 04/18/17 subcutaneous solution amlodipine 5 mg tablet 5 mg PO QDAY #90 tab 06/27/17 Furosemide 40 mg PO TID 08/03/17 Insulin Lispro [Humalog] 10 unit SC LUNCH 08/03/17 Insulin Lispro [Humalog] 15 unit SQ DINNER 08/03/17 Insulin NPH Human [Humulin N (Bkc)] 10 units SC DAILY@0730 08/03/17 metolazone 2.5 mg tablet 2.5 mg PO .COMPLEX #10 tab 08/05/17 potassium chloride ER 20 mEq 40 meq PO QDAY #60 tab 08/17/17 tablet,extended release(part/cryst) warfarin 10 mg tablet 10 mg PO SUMOFRSA #30 tab 10/03/17 warfarin 7.5 mg tablet 7.5 mg PO TUWETH #30 tab 10/03/17 carvedilol 6.25 mg tablet 6.25 mg PO BID #60 tab 10/20/17 Biotin 1 tab PO DAILY 11/18/17 Cephalexin [Keflex] 500 mg PO Q6 #28 cap 11/18/17 Diphenoxylate/Atrop [Lomotil] 1 tab PO Q6H PRN PRN 11/18/17 Estrogen,Judy/Me-Testosterone 1 tab VAGINAL QWEEK 11/18/17 [Estratest Tablet] Folic Acid 0.8 mg PO DAILY 11/18/17 Ipratropium Victoria 0.06% 2 spray NASAL BID 11/18/17 [ATROVENT NASAL SPRAY (g)] Vitamin B12 2,000 unit PO DAILY 11/18/17 Clindamycin HCl [Cleocin] 300 mg PO Q6H #40 cap 12/01/17 Surgical History: Surgical History (Last Reviewed 12/04/17 @ 01:53 by Sanjay Rhodes MD) History of facial surgery (Resolved) Z98.890 History of tonsillectomy (Resolved) Z98.890, Z90.89 History of bilateral knee replacement (Resolved) Z98.890, Z96.653 History of cataract extraction (Resolved) Z98.49 History of cardioversion (Chronic) Onset Date: ~10/01/16 Z98.890 H/O right and left heart catheterization (Chronic) Onset Date: ~05/15/15 Z98.890 H/O basal cell carcinoma excision (Chronic) Z98.890, Z85.828 Surgical History: total knee arthroplasty - Bilateral, tonsillectomy, - - Surgeries to the left face for basal cell carcinoma involving the left lower eyelid and then plastic repair. 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 Smoking Status: Never smoker - *Family History Paternal Family History: Family History (Last Reviewed 10/25/17 @ 09:00 by Selina Richards) Mother Hypertension Diabetes Father Heart disease Hypertension Diabetes Sister Hypertension Brother Diabetes History Items: Cancer, Diabetes, Hypertension Maternal Family History: Family History (Last Reviewed 10/25/17 @ 09:00 by Selina Richards) Mother Hypertension Diabetes Father Heart disease Hypertension Diabetes Sister Hypertension Brother Diabetes History Items: Heart Disease, Hypertension Sibling Family History: Family History (Last Reviewed 10/25/17 @ 09:00 by Selina Richards) Mother Hypertension Diabetes Father Heart disease Hypertension Diabetes Sister Hypertension Brother Diabetes History Items: Heart Disease Review of Systems Constitutional: Denies: Chills, Fever, Weight Change HEENT: Denies: Head Aches, Sinus Congestion, Sinus Drainage Cardiovascular: Denies: Chest Pain, Palpitations Respiratory: Denies: Cough, Shortness of breath at rest, Sputum production Gastrointestinal: Denies: Abdominal Pain, Nausea, Vomiting Genitourinary: Denies: Dysuria Musculoskeletal: Denies: Joint Pain, Joint Tenderness Skin: Denies: Rash, Wounds Neurological: Denies: Numbness, Tingling, Focal weakness Psychiatric: Denies: Anxiety, Depression, Homicidal Ideations, Suicidal Ideations Hematologic/ Lymphatic: Denies: Easy Bruising, Easy Bleeding VTE Information - Inpt Only VTE Present on Admission: No VTE Mechan Device Prophylaxis: None VTE Pharm Prophylaxis ordered?: No Reason prophylaxis not ordered:: Treatment Not Indicated - Home Coumadin was continued. Patient Problems: Active and Suspected Problems (Last Reviewed 10/25/17 @ 09:00 by Selina Richards) Facial cellulitis (Acute) - Physical Exam General: Alert, Oriented x3, Cooperative HEENT: - - Multiple facial scar. Neck: Supple, No JVD, Negative Carotid Bruits Lungs: Clear to auscultation, Normal air movement Cardiovascular: Normal S1, Normal S2, Irregular Rate Abdomen: Bowel Sounds Present Extremities: No edema, Capillary Refill Less than 3 Seconds Skin: - - Chin with redness, induration, swelling and tenderness. Musculoskeletal: No Tenderness to Palpation of Joints or Extremities Neurological: Cranial nerves II-XII grossly intact Psych/Mental Status: Normal Affect, Appropriate Vital Signs Temp Pulse Resp BP Pulse Ox 97.9 F 86 16 146/107 H 95 12/03/17 16:03 12/03/17 19:16 12/03/17 19:16 12/03/17 19:16 12/03/17 19:16 Oxygen Delivery Method Room Air Weight: 107.501 kg Body Mass Index (BMI) 42.0 Finger Stick Blood Glucose 117 Laboratory Tests Past 24 Hrs 12/03/17 12/03/17 12/03/17 17:00 17:00 17:00 WBC 8.8 RBC 3.75 L Hgb 10.4 L Hct 33.8 L MCV 90.1 MCH 27.7 MCHC 30.8 L RDW 14.4 RDW Differential 47.8 H Plt Count 346 MPV 10.8 Immature Gran % (Auto) 0.300 Neut % (Auto) 71.8 H Lymph % (Auto) 16.3 L Osborne % (Auto) 8.6 Eos % (Auto) 2.5 Baso % (Auto) 0.5 Absolute Neuts (auto) 6.3 Absolute Lymphs (auto) 1.43 Total Counted Not Reportable PT 19.8 H INR 1.7 Sodium 135 L Potassium 4.5 Chloride 98 Carbon Dioxide 30.0 Anion Gap 7 BUN 33 H Creatinine 1.44 H Estim Creat Clear Calc 30.50 Est GFR (MDRD) Af Amer 46 L Est GFR (MDRD) Non-Af 38 L BUN/Creatinine Ratio 22.9 H Glucose 176 H Calcium 8.3 L Assessment/Plan All Active Problems (Last Reviewed 10/25/17 @ 09:00 by Selina Richards) Facial cellulitis (Acute) History of facial surgery (Resolved) History of tonsillectomy (Resolved) History of bilateral knee replacement (Resolved) History of cataract extraction (Resolved) History of syncope (Acute) Syncope (Acute) Acute asthmatic bronchitis (Resolved) Acute exacerbation of CHF (congestive heart failure) (Resolved) Atrial fibrillation with RVR (Resolved) Paroxysmal A-fib (Resolved) SOB (shortness of breath) (Resolved) The patient is a 67 year old F with a significant history of hypertension, hyperlipidemia, COPD; diabetes; basal skin cancer above the lips and 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 Patient reported that her last facial surgery was in December 2016. She reports pus draining down her chin and a severe pain at the right side of her face and chin. Associated with symptoms is teeth pain. Imaging of her sinus/facial bones with contrast showed mild nonspecific soft tissue swelling of the left side of the face; prominent nodular soft tissue density, or masses involving the lower left this could be inflammatory, abscess not excluded, or neoplasm. Outpatient patient was on Keflex and clindamycin. Facial cellulitis Her chin is indurated; and erythematous concerning for cellulitis Patient received cefazolin at emergency department We will cover with vancomycin and clindamycin. Patient is allergic to penicillins. We will consults facial surgery; and infectious disease. Trend CBC. Oxycodone as needed Importantly her symptoms is on the left side of her face; and below her gold but imaging is concerning at the left side of her face. GALO Baseline creatinine is around 1.12. At admission her creatinine was 1.44. Gentle fluid hydration Avoid nephrotoxic's Trend BMP. Diabetes mellitus Blood glucose not within goal at the time of admission Prandial and basal insulin ordered. COPD Not in acute flare Breathing treatments continued. Hypertension Blood pressures within goal at the time of admission; but fair. Coreg and amlodipine continued Atrial fibrillation Status post multiple cardioversion. Admission was in controlled A. fib . INR 1.7 at admission. Patient reported that her INR outpatient was severely elevated and she had bruises all over her skin for which reason Coumadin was held. Because she is subtherapeutic at this time Coumadin has been re-started. Daily INR. Hyperlipidemia Lipitor continued DVT prophylaxis Coumadin continued Code Visit Inpatient E&M: 97465 Init Hosp L3
--- NOTE | 2017-12-03 19:36 | ED.VISSUMM ---
- ER Visit Summary Date of Service: 12/03/17 Chief Complaint: Facial pain History of Present Illness: The patient is a 67 F who presents with facial pain. She has a history of skin cancer with multiple facial surgeries. She states she has had chronic pain ever since her surgery but it is been significantly worse than last 1-1/2 months. She is also been being treated for cellulitis of the chin. She has had multiple emergency department visits. She has been on a couple of antibiotics. She is currently on clindamycin. She states Percocet at home is not helping with the pain. She also complains of purulent drainage from a wound on the right side of the chin. She denies systemic symptoms such as fevers nausea or vomiting. Physical Examination: Afebrile heart rate 103 vitals otherwise unremarkable Moist mucous membranes There is erythema on the right gold and a small linear wound there is also erythema of the left side of the face Heart regular rhythm slightly tachycardic Lungs are clear Alert Test Results: CT of the face shows mild inflammatory changes of left face. Abscess cannot be ruled out. Labs are notable for creatinine 1.44, BUN of 33, glucose 176. INR 1.7. Emergency Department Course and Treatment: Patient was treated with IV morphine and Zofran for symptoms. I do believe she is facial cellulitis that is failing outpatient treatment. She has multiple allergies. She has tolerated Keflex before. She was treated with IV cefazolin. She was discussed with hospitalist and admitted. Treatment Plan: [] Disposition: Admit Impression: Facial cellulitis This note was generated with [employer] dictation software. It may contain incorrect words, spelling, and punctuation that were not noted in review of the chart prior to signing ED Disposition - Plan for ED Patient: Chief Complaint: Headache Referrals: Nigel Hoang Jr., MD [Primary Care Provider] -
[2017-12-03] MEDS: Cefazolin 2 GM in 0.9% Normal Saline 100 ML IV (19:38)
[2017-12-03 20:57] VITALS: BMI 41.9
[2017-12-03 20:59] VITALS: BP 141/65; PULSE 99; RESP 18; TEMP 36.1; O2SAT 97
[2017-12-03 21:15] VITALS: BMI 41.9
[2017-12-03 21:15] LABS: Bedside Glucose 70 mg/dL (70-110)
[2017-12-03] MEDS: Ipratropium Bromide 0.06% NASAL SPRAY 2 SPRAY NASAL (22:21)
[2017-12-03] MEDS: traZODone 50 MG Tablet PO (22:22)
[2017-12-03] MEDS: Atorvastatin Calcium 20 MG Tablet PO (22:23)
[2017-12-03] MEDS: Gabapentin 100 MG Capsule 200 MG PO (22:24)
[2017-12-03] MEDS: Carvedilol 6.25 MG Tablet PO (22:24)
[2017-12-03] MEDS: tiZANidine HCl 2 MG Tablet PO (22:25)
[2017-12-03] MEDS: Flecainide 150 MG Tablet PO (22:26)
[2017-12-03] MEDS: 0.9% Normal Saline 1,000 ML 100 ML IV (22:26)
[2017-12-03] MEDS: diazePAM 5 MG Tablet 10 MG PO (22:29)
[2017-12-03] MEDS: Glucerna Shake 120 ML LIQUID PO (22:30)
[2017-12-03] MEDS: oxyCODONE 5 MG Tablet PO (23:22)
[2017-12-04] MEDS: Nystatin Powder 15gm Bottle 1 APPLIC TOPICAL ×3 (01:04→21:39)
--- NOTE | 2017-12-04 01:54 | PCM.RX.CS ---
Consult Pharmacy has been consulted to manage selected antiobiotic: Vancomycin Type of Consult: New start Suspected Infection: Skin/Soft tissue Labs: Sodium 135 mmol/L (136-145) L 12/03/17 17:00 Potassium 4.5 mmol/L (3.5-5.1) 12/03/17 17:00 Chloride 98 mmol/L (98-107) 12/03/17 17:00 Carbon Dioxide 30.0 mmol/L (21.0-32.0) 12/03/17 17:00 Anion Gap 7 (5-15) 12/03/17 17:00 BUN 33 mg/dL (7-18) H 12/03/17 17:00 Creatinine 1.44 mg/dL (0.55-1.02) H 12/03/17 17:00 Est GFR (MDRD) Af Amer 46 mL/min (>60) L 12/03/17 17:00 Est GFR (MDRD) Non-Af 38 mL/min (>60) L 12/03/17 17:00 BUN/Creatinine Ratio 22.9 RATIO (10-20) H 12/03/17 17:00 Glucose 176 mg/dL (74-106) H 12/03/17 17:00 Weight used for dosin.4 kg Estimated Creatinine Clearance: 30.5 Goal Trough: 10-15 mcg/mL Pharmacy Plan for Drug Dosing: Pharmacy Service will continue to monitor and adjust dosing as required. Medications Vancomycin HCl 1,250 mg/ (Sodium Chloride) 275 mls @ 167 mls/hr IV Q24H AMIE Discontinued Medications Vancomycin HCl 1,500 mg/ (Sodium Chloride) 530 mls @ 250 mls/hr IV X1 ONE Stop: 12/03/17 23:37 Last Admin: 12/03/17 23:03 Dose: 250 mls/hr Follow-Up Labs: Trough Vancomycin Labs to be done on [date and time ordered]: 12/06 @ 2300
[2017-12-04] MEDS: diazePAM 5 MG Tablet 10 MG PO ×3 (05:17→21:39)
[2017-12-04] MEDS: tiZANidine HCl 2 MG Tablet PO ×3 (05:17→21:41)
[2017-12-04] MEDS: oxyCODONE 5 MG Tablet PO ×4 (05:17→21:39)
[2017-12-04] MEDS: Gabapentin 100 MG Capsule 200 MG PO ×3 (05:18→21:40)
[2017-12-04 05:19] VITALS: BP 117/71; PULSE 84; RESP 16; TEMP 36.3; O2SAT 97
--- NOTE | 2017-12-04 06:08 | NURSING ---
DR BYRD ANSWERING SERVICE DOES NOT TAKE REFERRALS ON THE WEEKEND CALL BACK ON TUESDAY
[2017-12-04 06:17] LABS: Absolute Lymphocyte Count 2.08 X10^3/ul (0.83-4.51); Absolute Neutrophil Count 5.1 X10^3/uL (2.0-7.7); Basophil# 0.04 X10^3/uL; Basophil% 0.5 % (0-1); Eosinophil# 0.26 X10^3/uL; Eosinophils% 3.1 % (0-5); Hematocrit 32.3 % (37-47); Lymphocyte # 2.08 X10^3/ul (4.0); Lymphocyte % 24.7 % (19-41); Mean Corpuscular Volume 90.5 fL (81-99); Mean Platelet Vol. 10.8 fl (6.2-12.0); Monocyte% 10.7 % (0-10); Neutrophil % 60.6 % (47-70); Platelet Count 282 K/mm3 (150-450); RBC Distribution Width CV 14.8 % (11.6-14.6); RBC Distribution Width SD 48.6 fl (35.1-43.9); Red Blood Count 3.57 M/mm3 (4.2-5.4); White Blood Count 8.4 K/mm3 (4.4-11.0)
[2017-12-04 06:21] LABS: POSITIVE COUNT NO; POSITIVE DIFFERENTIAL NO; POSITIVE MORPHOLOGY NO
[2017-12-04 06:31] LABS: Anion Gap 10 (5-15); BUN 26 mg/dL (7-18); Calcium,Total 8.5 mg/dL (8.5-10.1); Chloride 100 mmol/L (98-107); Creatinine, Serum 1.13 mg/dL (0.55-1.02); EST Glomerular Filtration Rate 51 mL/min (>60); Est Glom Filt Rate - Afr Amer 61 mL/min (>60); Estimated Creatinine Clearance 38.87 ml/min; Glucose 108 mg/dL (74-106); Potassium 4.3 mmol/L (3.5-5.1); Sodium Level 139 mmol/L (136-145)
[2017-12-04 06:41] LABS: Bedside Glucose 132 mg/dL (70-110)
--- NOTE | 2017-12-04 06:58 | PCM.PN.HOSP ---
Patient Problems: Active and Suspected Problems (Last Reviewed 12/04/17 @ 01:53 by Sanjay Rhodes MD) Facial cellulitis (Acute) Subjective: Patient overnight with less than discomfort to the chin region and improvement of erythema but still ongoing purulent drainage and discomfort currently rated 5-7 out of 10 where previously 9-10 out of 10. Discussed current presentation and likely would initiate plastic surgery evaluation to follow. Did have appointment with her plastic surgeon at the [facility] on Tuesday however this will need to be changed. Patient denies fevers, chills, nausea, emesis, abdominal pain, chest pain or dyspnea. Objective: Physical Examination: General: awake, alert, oriented x 3 and cooperative, seated upright in bed in no apparent distress. Skin: normal color, turgor, no icterus, cyanosis except notable for facial scarring status post surgical intervention in addition to improving erythema to the chin with prior skin biopsy site on the right side of the chin with ongoing purulent drainage w/ TTP, fluctuance. HEENT: AT/NC, EOMI, PERRLA, MMM, see skin. Lungs: Diminished BS, > BL bases, distant secondary to habitus, no rales, ronchi or wheezing. Heart: Regular rate and rhythm; no gallop, rub audible. Abdomen: soft, morbidly obese, NTTP, ND. Extremities: no cyanosis, clubbing, mild non-pitting ankle edema. Neurological: patient awake, alert, oriented x 3; cognitive function intact; pupils equally reactive to light and accomodation; cranial nerves II-XII grossly normal, moving all 4 extremities, no focal deficits, strength moderately globally decreased. Psychiatric: affect appears normal, no acute evidence of depressive or anxiety feelings. Vitals/I&O's: Vital Signs Temp Pulse Resp BP Pulse Ox 97.4 F L 84 16 117/71 97 12/04/17 05:19 12/04/17 05:19 12/04/17 05:19 12/04/17 05:19 12/04/17 05:19 Oxygen Delivery Method Room Air Weight: 236 lb 12.8 oz Body Mass Index (BMI) 41.9 Intake and Output for Last 24 Hours 12/02/17 12/03/17 12/04/17 23:59 23:59 23:59 Intake Total 1523 / 1523 Balance 1523 / 1523 Laboratory Results 12/03/17 21:09: POC Glucose 70 12/04/17 05:40: WBC 8.4, RBC 3.57 L, Hgb 10.0 L, Hct 32.3 L, MCV 90.5, MCH 28.0, MCHC 31.0 L, RDW 14.8 H, RDW Differential 48.6 H, Plt Count 282, MPV 10.8, Immature Gran % (Auto) 0.400, Neut % (Auto) 60.6, Lymph % (Auto) 24.7, [place] % (Auto) 10.7 H, Eos % (Auto) 3.1, Baso % (Auto) 0.5, Absolute Neuts (auto) 5.1, Absolute Lymphs (auto) 2.08, Total Counted Not Reportable 12/04/17 05:40: Sodium 139, Potassium 4.3, Chloride 100, Carbon Dioxide 29.0, Anion Gap 10, BUN 26 H, Creatinine 1.13 H, Estim Creat Clear Calc 38.87, Est GFR (MDRD) Af Amer 61, Est GFR (MDRD) Non-Af 51 L, BUN/Creatinine Ratio 23.0 H, Glucose 108 H, Calcium 8.5 12/04/17 06:34: POC Glucose 132 H Current Medications Albuterol Sulfate (Ventolin Aerosols) 2.5 mg INHALATION Q4H PRN PRN PRN Reason: SOB wheezing Amlodipine Besylate (Norvasc) 5 mg PO DAILY [facility] Aspirin (Aspirin, Baby) 81 mg PO DAILY@0800 [facility] Atorvastatin Calcium (Lipitor) 20 mg PO QHS [facility] Last Admin: 12/03/17 22:23 Dose: 20 mg Bisacodyl (Dulcolax) 5 mg PO DAILY PRN PRN PRN Reason: Constipation Calcium Carbonate (Os-Kirill 500) 500 mg PO BID [facility] Carvedilol (Coreg) 6.25 mg PO BID [facility] Last Admin: 12/03/17 22:24 Dose: 6.25 mg Cyanocobalamin (Vitamin B12) 2,000 mcg PO DAILY [facility] Dextrose (D50w Syringe) 0 gm IV X1 PRN; Protocol PRN Reason: Hypoglycemia Diazepam (Valium) 10 mg PO TID [facility] Last Admin: 12/04/17 05:17 Dose: 10 mg Diphenoxylate HCl/Atropine (Lomotil) 1 tablet PO Q6H PRN PRN PRN Reason: Diarrhea Ferrous Sulfate (Ferrous Sulfate) 325 mg PO DAILY@0800 [facility] Flecainide Acetate (Tambocor) 150 mg PO Q12 [facility] Last Admin: 12/03/17 22:26 Dose: 150 mg Folic Acid (Folic Acid) 1 mg PO DAILY@0800 [facility] Gabapentin (Neurontin) 200 mg PO TID [facility] Last Admin: 12/04/17 05:18 Dose: 200 mg Glucagon () 1 mg IM .X1 PRN PRN Reason: Hypoglycemia Clindamycin Phosphate 600 mg/ (Dextrose) 54 mls @ 100 mls/hr IV Q8 [facility] Last Admin: 12/04/17 05:17 Dose: 100 mls/hr Vancomycin IV Pharmacy to Dose (1,000 ea/ Sodium Chloride) 500 mls @ 250 mls/hr IV X1 [facility] PRN Reason: Protocol Sodium Chloride () 250 mls @ 15 mls/hr IV .[id number] PRN PRN Reason: SALINE FLUSH Vancomycin HCl 1,250 mg/ (Sodium Chloride) 275 mls @ 167 mls/hr IV Q24H [facility] Insulin Glargine (Lantus (Bkc)) 18 units SC QHS [facility] Last Admin: 12/03/17 22:27 Dose: Not Given Insulin Glargine (Lantus (Bkc)) 10 units SC BREAKFAST [facility] Insulin Human Lispro (Humalog Kwikpen (Bkc)) 15 unit SQ LUNCH [facility] Insulin Human Lispro (Humalog Kwikpen (Bkc)) 10 unit SQ DINNER [facility] Insulin Human Lispro (Humalog Kwikpen (Bkc)) 10 unit SQ BREAKFAST [facility] Insulin Human Lispro (Humalog Kwikpen (Bkc)) 0 unit SQ ACHS [facility] PRN Reason: Protocol Last Admin: 12/04/17 06:46 Dose: Not Given Ipratropium [place] (Atrovent Nasal Tow (G)) 2 spray NASAL BID [facility] Last Admin: 12/03/17 22:21 Dose: 2 spray Loratadine (Claritin) 10 mg PO DAILY [facility] Magnesium Hydroxide (Milk Of Magnesia) 30 ml PO DAILY PRN PRN PRN Reason: Constipation Morphine Sulfate () 1 - 2 mg IV Q4H PRN PRN PRN Reason: Moderate Pain (pain scale 4-5) Nutritional Formula (Lactose Free) (Glucerna Shake) 120 ml PO 4X/DAY [facility] Last Admin: 12/03/17 22:30 Dose: 120 ml Nystatin (Mycostatin Powder) 1 applic TOPICAL BID [facility] PRN Reason: Protocol Last Admin: 12/04/17 01:04 Dose: 1 applicatio Ondansetron HCl (Zofran) 4 mg IV Q8H PRN PRN PRN Reason: NAUSEA Oxycodone HCl (Oxyir) 5 mg PO Q4H PRN PRN PRN Reason: Moderate Pain (pain scale 4-5) Last Admin: 12/04/17 05:17 Dose: 5 mg Pantoprazole Sodium (Protonix) 40 mg PO DAILY [facility] Sodium Chloride () 5 - 30 ml IV UD PRN PRN Reason: SALINE FLUSH Tizanidine HCl (Zanaflex) 2 mg PO TID [facility] Last Admin: 12/04/17 05:17 Dose: 2 mg Trazodone HCl (Desyrel) 50 mg PO QHS [facility] Last Admin: 12/03/17 22:22 Dose: 50 mg Warfarin Sodium (Coumadin (Pbkc)) 7.5 mg PO TuWeTh@1700 [facility] PRN Reason: Protocol Warfarin Sodium (Coumadin (Pbkc)) 10 mg PO SuMoFrSa@1700 [facility] Zolpidem Tartrate (Ambien (Generic)) 5 mg PO QHS PRN PRN PRN Reason: INSOMNIA Medical Necessity - Tobacco Use Smoking Status: Never smoker Assessment/Plan All Active Problems (Last Reviewed 12/04/17 @ 01:53 by Sanjay Rhodes MD) Facial cellulitis (Acute) History of facial surgery (Resolved) History of tonsillectomy (Resolved) History of bilateral knee replacement (Resolved) History of cataract extraction (Resolved) History of syncope (Acute) Syncope (Acute) Acute asthmatic bronchitis (Resolved) Acute exacerbation of CHF (congestive heart failure) (Resolved) Atrial fibrillation with RVR (Resolved) Paroxysmal A-fib (Resolved) SOB (shortness of breath) (Resolved) The patient is a 67 y/o F w/ PMHx: CKD stage III, Fe deficiency anemia, Diabetes mellitus type II w/ Neuropathy, HTN, HLD, Anxiety and Depression, NICKOLAS, PAF, Diastolic CHF, Morbid Obesity, Chronic COPD, Hx Basal Cell CA and 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 (1) BL Facial, Chin Cellulitis w/ Open Wound: CT face with sinus and facial bones with mild nonspecific soft tissue swelling of the left side of the face, prominent nodular soft tissue density or masses involving the lower left possibly inflammatory with inability to exclude abscess or neoplasm. Admitted to [place], maintained on IV vanc and ancef secondary to allergies, obtain Wound Cx, obtain Wound MRSA PCR, plan repeat CBC in AM, continue elevation of head, monitor erythema outline with VS checks. ID, Dr. Henderson consultation pending. Discussed case w/ ENT, Dr. Armenta and will discontinue consultation and request Plastic Surgery consultation. Wound RN consulted. (2) Diastolic CHF: ECHO 09/06/16 normal LV size, EF 70%, moderate CLVH, mild , mild TVI. Maintain on home coumadin, coreg, statin, lisinopril, lasix, metolazone regimen. (3) CKD stage III: Admission BUN/Cr 33/1.44, baseline Cr 1.2-1.4 over the last year, stable, repeat 12/04/17 BUN/Cr 26/1.13. (4) Chronic COPD: ATC duonebs, PRN albuterol, HOB, IS parameters. (5) Paroxsymal atrial fibrillation: Continue regimen coreg, flecainide, coumadin w/ INR trending. (6) Diabetes mellitus type II: Hold oral home regimen, continued home insulin regimen, ADA diet, accu checks w/ ISS. HgbA1c pending. (7) Anxiety and depression: Continued home diazepam, trazodone regimen. (8) Hyperlipidemia: Continued home statin regimen. (9) Hypertension: Continued home regimen including lasix, norvasc, Coreg, lisinopril, PRN labetaolol. (10) Morbid Obesity: Weight loss and lifestyle changes encouraged, nutrition consulted for education and teaching. (11) Fe Deficiency Anemia: Admission Hgb 10.4, stable. Maintain on home Fe supplementation. (12) NICKOLAS: CPAP q HS. (13) GERD: PPI. (14) DVT Prophylaxis: SCDs, coumadin w/ INR trending. Code Visit Inpatient E&M: 22955 Subs Hosp L2
--- NOTE | 2017-12-04 07:14 | PN_ITS ---
Patient Problems: Active and Suspected Problems (Last Reviewed 12/04/17 @ 01:53 by Sanjay Rhodes MD) Facial cellulitis (Acute) Subjective: Patient overnight with less than discomfort to the chin region and improvement of erythema but still ongoing purulent drainage and discomfort currently rated 5 -7 out of 10 where previously 9-10 out of 10. Discussed current presentation and likely would initiate plastic surgery evaluation to follow. Did have appointment with her plastic surgeon at the [facility] on Tuesday however this will need to be changed. Patient denies fevers, chills, nausea, emesis, abdominal pain, chest pain or dyspnea. Objective: Physical Examination: General: awake, alert, oriented x 3 and cooperative, seated upright in bed in no apparent distress. Skin: normal color, turgor, no icterus, cyanosis except notable for facial scarring status post surgical intervention in addition to improving erythema to the chin with prior skin biopsy site on the right side of the chin with ongoing purulent drainage w/ TTP, fluctuance. HEENT: AT/NC, EOMI, PERRLA, MMM, see skin. Lungs: Diminished BS, > BL bases, distant secondary to habitus, no rales, ronchi or wheezing. Heart: Regular rate and rhythm; no gallop, rub audible. Abdomen: soft, morbidly obese, NTTP, ND. Extremities: no cyanosis, clubbing, mild non-pitting ankle edema. Neurological: patient awake, alert, oriented x 3; cognitive function intact; pupils equally reactive to light and accomodation; cranial nerves II-XII grossly normal, moving all 4 extremities, no focal deficits, strength moderately globally decreased. Psychiatric: affect appears normal, no acute evidence of depressive or anxiety feelings. Vitals/I&O's: Vital Signs Temp Pulse Resp BP Pulse Ox 97.4 F L 84 16 117/71 97 12/04/17 05:19 12/04/17 05:19 12/04/17 05:19 12/04/17 05:19 12/04/17 05:19 Oxygen Delivery Method Room Air Weight: 236 lb 12.8 oz Body Mass Index (BMI) 41.9 Intake and Output for Last 24 Hours 12/02/17 12/03/17 12/04/17 23:59 23:59 23:59 Intake Total 1523 / 1523 Balance 1523 / 1523 Laboratory Results 12/03/17 21:09: POC Glucose 70 12/04/17 05:40: WBC 8.4, RBC 3.57 L, Hgb 10.0 L, Hct 32.3 L, MCV 90.5, MCH 28.0 , MCHC 31.0 L, RDW 14.8 H, RDW Differential 48.6 H, Plt Count 282, MPV 10.8, Immature Gran % (Auto) 0.400, Neut % (Auto) 60.6, Lymph % (Auto) 24.7, [place] % ( Auto) 10.7 H, Eos % (Auto) 3.1, Baso % (Auto) 0.5, Absolute Neuts (auto) 5.1, Absolute Lymphs (auto) 2.08, Total Counted Not Reportable 12/04/17 05:40: Sodium 139, Potassium 4.3, Chloride 100, Carbon Dioxide 29.0, Anion Gap 10, BUN 26 H, Creatinine 1.13 H, Estim Creat Clear Calc 38.87, Est GFR (MDRD) Af Amer 61, Est GFR (MDRD) Non-Af 51 L, BUN/Creatinine Ratio 23.0 H, Glucose 108 H, Calcium 8.5 12/04/17 06:34: POC Glucose 132 H Current Medications Albuterol Sulfate (Ventolin Aerosols) 2.5 mg INHALATION Q4H PRN PRN PRN Reason: SOB wheezing Amlodipine Besylate (Norvasc) 5 mg PO DAILY [facility] Aspirin (Aspirin, Baby) 81 mg PO DAILY@0800 [facility] Atorvastatin Calcium (Lipitor) 20 mg PO QHS [facility] Last Admin: 12/03/17 22:23 Dose: 20 mg Bisacodyl (Dulcolax) 5 mg PO DAILY PRN PRN PRN Reason: Constipation Calcium Carbonate (Os-Kirill 500) 500 mg PO BID [facility] Carvedilol (Coreg) 6.25 mg PO BID [facility] Last Admin: 12/03/17 22:24 Dose: 6.25 mg Cyanocobalamin (Vitamin B12) 2,000 mcg PO DAILY [facility] Dextrose (D50w Syringe) 0 gm IV X1 PRN; Protocol PRN Reason: Hypoglycemia Diazepam (Valium) 10 mg PO TID [facility] Last Admin: 12/04/17 05:17 Dose: 10 mg Diphenoxylate HCl/Atropine (Lomotil) 1 tablet PO Q6H PRN PRN PRN Reason: Diarrhea Ferrous Sulfate (Ferrous Sulfate) 325 mg PO DAILY@0800 [facility] Flecainide Acetate (Tambocor) 150 mg PO Q12 [facility] Last Admin: 12/03/17 22:26 Dose: 150 mg Folic Acid (Folic Acid) 1 mg PO DAILY@0800 [facility] Gabapentin (Neurontin) 200 mg PO TID [facility] Last Admin: 12/04/17 05:18 Dose: 200 mg Glucagon () 1 mg IM .X1 PRN PRN Reason: Hypoglycemia Clindamycin Phosphate 600 mg/ (Dextrose) 54 mls @ 100 mls/hr IV Q8 [facility] Last Admin: 12/04/17 05:17 Dose: 100 mls/hr Vancomycin IV Pharmacy to Dose (1,000 ea/ Sodium Chloride) 500 mls @ 250 mls/ hr IV X1 [facility] PRN Reason: Protocol Sodium Chloride () 250 mls @ 15 mls/hr IV .[id number] PRN PRN Reason: SALINE FLUSH Vancomycin HCl 1,250 mg/ (Sodium Chloride) 275 mls @ 167 mls/hr IV Q24H [facility] Insulin Glargine (Lantus (Bkc)) 18 units SC QHS [facility] Last Admin: 12/03/17 22:27 Dose: Not Given Insulin Glargine (Lantus (Bkc)) 10 units SC BREAKFAST [facility] Insulin Human Lispro (Humalog Kwikpen (Bkc)) 15 unit SQ LUNCH [facility] Insulin Human Lispro (Humalog Kwikpen (Bkc)) 10 unit SQ DINNER [facility] Insulin Human Lispro (Humalog Kwikpen (Bkc)) 10 unit SQ BREAKFAST [facility] Insulin Human Lispro (Humalog Kwikpen (Bkc)) 0 unit SQ ACHS [facility] PRN Reason: Protocol Last Admin: 12/04/17 06:46 Dose: Not Given Ipratropium [place] (Atrovent Nasal [place] (G)) 2 spray NASAL BID [facility] Last Admin: 12/03/17 22:21 Dose: 2 spray Loratadine (Claritin) 10 mg PO DAILY [facility] Magnesium Hydroxide (Milk Of Magnesia) 30 ml PO DAILY PRN PRN PRN Reason: Constipation Morphine Sulfate () 1 - 2 mg IV Q4H PRN PRN PRN Reason: Moderate Pain (pain scale 4-5) Nutritional Formula (Lactose Free) (Glucerna Shake) 120 ml PO 4X/DAY [facility] Last Admin: 12/03/17 22:30 Dose: 120 ml Nystatin (Mycostatin Powder) 1 applic TOPICAL BID [facility] PRN Reason: Protocol Last Admin: 12/04/17 01:04 Dose: 1 applicatio Ondansetron HCl (Zofran) 4 mg IV Q8H PRN PRN PRN Reason: NAUSEA Oxycodone HCl (Oxyir) 5 mg PO Q4H PRN PRN PRN Reason: Moderate Pain (pain scale 4-5) Last Admin: 12/04/17 05:17 Dose: 5 mg Pantoprazole Sodium (Protonix) 40 mg PO DAILY [facility] Sodium Chloride () 5 - 30 ml IV UD PRN PRN Reason: SALINE FLUSH Tizanidine HCl (Zanaflex) 2 mg PO TID [facility] Last Admin: 12/04/17 05:17 Dose: 2 mg Trazodone HCl (Desyrel) 50 mg PO QHS [facility] Last Admin: 12/03/17 22:22 Dose: 50 mg Warfarin Sodium (Coumadin (Pbkc)) 7.5 mg PO TuWeTh@1700 [facility] PRN Reason: Protocol Warfarin Sodium (Coumadin (Pbkc)) 10 mg PO SuMoFrSa@1700 [facility] Zolpidem Tartrate (Ambien (Generic)) 5 mg PO QHS PRN PRN PRN Reason: INSOMNIA Medical Necessity - Tobacco Use Smoking Status: Never smoker Assessment/Plan All Active Problems (Last Reviewed 12/04/17 @ 01:53 by Sanjay Rhodes MD) Facial cellulitis (Acute) History of facial surgery (Resolved) History of tonsillectomy (Resolved) History of bilateral knee replacement (Resolved) History of cataract extraction (Resolved) History of syncope (Acute) Syncope (Acute) Acute asthmatic bronchitis (Resolved) Acute exacerbation of CHF (congestive heart failure) (Resolved) Atrial fibrillation with RVR (Resolved) Paroxysmal A-fib (Resolved) SOB (shortness of breath) (Resolved) The patient is a 67 y/o F w/ PMHx: CKD stage III, Fe deficiency anemia, Diabetes mellitus type II w/ Neuropathy, HTN, HLD, Anxiety and Depression, NICKOLAS, PAF, Diastolic CHF, Morbid Obesity, Chronic COPD, Hx Basal Cell CA and 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 (1) BL Facial, Chin Cellulitis w/ Open Wound: CT face with sinus and facial bones with mild nonspecific soft tissue swelling of the left side of the face, prominent nodular soft tissue density or masses involving the lower left possibly inflammatory with inability to exclude abscess or neoplasm. Admitted [facility], maintained on IV vanc and ancef secondary to allergies, obtain Wound Cx, obtain Wound MRSA PCR, plan repeat CBC in AM, continue elevation of head, monitor erythema outline with VS checks. ID, Dr. Henderson consultation pending. Discussed case w/ ENT, Dr. Armenta and will discontinue consultation and request Plastic Surgery consultation. Wound RN consulted. (2) Diastolic CHF: ECHO 09/06/16 normal LV size, EF 70%, moderate CLVH, mild , mild TVI. Maintain on home coumadin, coreg, statin, lisinopril, lasix, metolazone regimen. (3) CKD stage III: Admission BUN/Cr 33/1.44, baseline Cr 1.2-1.4 over the last year, stable, repeat 12/04/17 BUN/Cr 26/1.13. (4) Chronic COPD: ATC duonebs, PRN albuterol, HOB, IS parameters. (5) Paroxsymal atrial fibrillation: Continue regimen coreg, flecainide, coumadin w/ INR trending. (6) Diabetes mellitus type II: Hold oral home regimen, continued home insulin regimen, ADA diet, accu checks w/ ISS. HgbA1c pending. (7) Anxiety and depression: Continued home diazepam, trazodone regimen. (8) Hyperlipidemia: Continued home statin regimen. (9) Hypertension: Continued home regimen including lasix, norvasc, Coreg, lisinopril, PRN labetaolol. (10) Morbid Obesity: Weight loss and lifestyle changes encouraged, nutrition consulted for education and teaching. (11) Fe Deficiency Anemia: Admission Hgb 10.4, stable. Maintain on home Fe supplementation. (12) NICKOLAS: CPAP q HS. (13) GERD: PPI. (14) DVT Prophylaxis: SCDs, coumadin w/ INR trending. Code Visit Inpatient E&M: 47773 Subs Hosp L2
[2017-12-04 07:22] LABS: Magnesium 1.7 mg/dL (1.6-2.6)
[2017-12-04 07:56] VITALS: O2SAT 97
[2017-12-04 10:00] VITALS: BP 122/64; PULSE 74; RESP 18; TEMP 36.7; O2SAT 97
[2017-12-04] MEDS: Loratadine 10 MG Tablet PO (10:06)
[2017-12-04] MEDS: Flecainide 150 MG Tablet PO ×2 (10:07→21:41)
[2017-12-04] MEDS: amLODIPine 5 MG Tablet PO (10:07)
[2017-12-04] MEDS: Pantoprazole Sodium 40 MG Tablet PO (10:07)
[2017-12-04] MEDS: Cyanocobalamin 500 MCG Tablet 2000 MCG PO (10:07)
[2017-12-04] MEDS: Lisinopril 20 MG Tablet PO (10:07)
[2017-12-04] MEDS: Calcium (Elemental) 500 MG Tablet PO ×2 (10:07→21:51)
[2017-12-04] MEDS: Folic Acid 1 MG Tablet PO (10:08)
[2017-12-04] MEDS: Carvedilol 6.25 MG Tablet PO ×2 (10:08→21:50)
[2017-12-04] MEDS: Ferrous Sulfate 325 MG Tablet PO (10:08)
[2017-12-04] MEDS: Aspirin 81 MG TAB.CHEW PO (10:08)
[2017-12-04] MEDS: Ipratropium Bromide 0.06% NASAL SPRAY 2 SPRAY NASAL ×2 (10:09→21:40)
[2017-12-04] MEDS: Insulin Lispro 100 UNIT/ML INSULN.PEN 10 UNIT SQ ×2 (10:14→17:05)
[2017-12-04 10:26] LABS: Bedside Glucose 118 mg/dL (70-110)
[2017-12-04] MEDS: Morphine 2 MG/ML Syringe IV ×2 (11:44→16:04)
[2017-12-04] MEDS: 0.9% NaCl Peripheral Flush Adult/Peds IV ×4 (11:44→22:01)
[2017-12-04 13:33] LABS: Probe Check PASS
[2017-12-04 13:35] LABS: M R Staph aureus DNA By PCR POSITIVE (Negative); Staph aureus DNA By PCR POSITIVE (Negative)
--- NOTE | 2017-12-04 13:37 | CPS ---
Pt wears cpap at home, but hasn't worn for a few weeks because of facial cellulitis and unable to tolerate cpap mask on her face at this time Telma Corona EGG SEPARATOR
[2017-12-04] MEDS: Cefazolin 2 GM in 0.9% Normal Saline 100 ML IV ×2 (13:38→21:39)
[2017-12-04] MEDS: Metolazone 2.5 MG Tablet PO (13:39)
[2017-12-04] MEDS: Furosemide 40 MG Tablet 60 MG PO ×2 (13:39→21:40)
[2017-12-04] MEDS: Glucerna Shake 120 ML LIQUID PO ×3 (13:40→21:51)
[2017-12-04 13:50] LABS: Bedside Glucose 160 mg/dL (70-110)
[2017-12-04] MEDS: Insulin Lispro 100 UNIT/ML INSULN.PEN 15 UNIT SQ (14:03)
[2017-12-04 16:16] VITALS: BP 116/72; PULSE 74; RESP 18; TEMP 36.4; O2SAT 97
[2017-12-04 16:25] LABS: Bedside Glucose 142 mg/dL (70-110)
[2017-12-04 19:53] VITALS: BP 104/61; PULSE 89; RESP 16; TEMP 36.3; O2SAT 96
[2017-12-04 20:45] VITALS: PULSE 75; RESP 18
[2017-12-04] MEDS: Ipratropium/Albuterol Sulfate 3 ML AMPUL.NEB INHALATION (20:59)
[2017-12-04] MEDS: Atorvastatin Calcium 20 MG Tablet PO (21:41)
[2017-12-04] MEDS: Insulin Lispro 100 UNIT/ML INSULN.PEN SQ (21:48)
[2017-12-04] MEDS: traZODone 50 MG Tablet PO (21:49)
[2017-12-04 22:16] LABS: Bedside Glucose 157 mg/dL (70-110)
[2017-12-05] VITALS (8 sets, daily range): BP systolic 97–135; BP diastolic 46–71; PULSE 65–94; RESP 14–18; TEMP 36.6–36.9; O2SAT 93–99
[2017-12-05] MEDS: Cefazolin 2 GM in 0.9% Normal Saline 100 ML IV ×3 (05:02→22:08)
[2017-12-05] MEDS: Gabapentin 100 MG Capsule 200 MG PO ×3 (05:03→22:07)
[2017-12-05] MEDS: oxyCODONE 5 MG Tablet PO (05:03)
[2017-12-05] MEDS: diazePAM 5 MG Tablet 10 MG PO ×3 (05:03→22:18)
[2017-12-05] MEDS: tiZANidine HCl 2 MG Tablet PO ×3 (05:03→22:06)
[2017-12-05] MEDS: Furosemide 40 MG Tablet 60 MG PO ×3 (05:03→22:07)
[2017-12-05] MEDS: Ipratropium/Albuterol Sulfate 3 ML AMPUL.NEB INHALATION ×3 (06:55→19:08)
[2017-12-05 07:00] LABS: Absolute Lymphocyte Count 1.05 X10^3/ul (0.83-4.51); Absolute Neutrophil Count 6.2 X10^3/uL (2.0-7.7); Basophil# 0.03 X10^3/uL; Basophil% 0.4 % (0-1); Eosinophil# 0.24 X10^3/uL; Eosinophils% 2.9 % (0-5); Hemoglobin 9.6 g/dl (12.0-15.0); Lymphocyte # 1.05 X10^3/ul (4.0); Lymphocyte % 12.8 % (19-41); Mean Corpuscular Hgb 28.8 pg (27.0-32.0); Mean Corpuscular Volume 93.1 fL (81-99); Mean Platelet Vol. 11.5 fl (6.2-12.0); Monocyte# 0.56 X10^3/uL; Monocyte% 6.8 % (0-10); Neutrophil # 6.24 X10^3/uL (2.7-7.7); Neutrophil % 76.2 % (47-70); POSITIVE COUNT NO; POSITIVE DIFFERENTIAL NO; POSITIVE MORPHOLOGY NO; Platelet Count 280 K/mm3 (150-450); RBC Distribution Width CV 14.9 % (11.6-14.6); Red Blood Count 3.33 M/mm3 (4.2-5.4); White Blood Count 8.2 K/mm3 (4.4-11.0)
[2017-12-05 07:06] LABS: International Normalized Ratio 1.3; Prothrombin Time (Protime)PT. 16.1 SECONDS (11.7-14.9)
[2017-12-05 07:27] LABS: Anion Gap 9 (5-15); BUN 32 mg/dL (7-18); BUN/Creat Ratio 24.1 RATIO (10-20); Calcium,Total 8.4 mg/dL (8.5-10.1); Chloride 99 mmol/L (98-107); Creatinine, Serum 1.33 mg/dL (0.55-1.02); EST Glomerular Filtration Rate 42 mL/min (>60); Est Glom Filt Rate - Afr Amer 51 mL/min (>60); Estimated Creatinine Clearance 33.02 ml/min; Glucose 192 mg/dL (74-106); Potassium 3.9 mmol/L (3.5-5.1); Sodium Level 136 mmol/L (136-145)
--- NOTE | 2017-12-05 08:40 | NURSING ---
wound photo: chin
--- NOTE | 2017-12-05 09:29 | PCM.PN.HOSP ---
Patient Problems: Active and Suspected Problems (Last Reviewed 12/04/17 @ 01:53 by Sanjay Rhodes MD) Facial cellulitis (Acute) Subjective: Still with erythema of gold and purulence. Left side of her face is chronically swollen/larger than her right from prior basal cell surgery with skin flap. Vitals/I&O's: Vital Signs Temp Pulse Resp BP Pulse Ox 36.6 C 65 14 97/46 L 93 12/05/17 08:28 12/05/17 08:28 12/05/17 08:28 12/05/17 08:28 12/05/17 08:28 Oxygen Delivery Method Room Air Weight: 107.411 kg Body Mass Index (BMI) 41.9 Intake and Output for Last 24 Hours 12/03/17 12/04/17 12/05/17 23:59 23:59 23:59 Intake Total 2985 / 2985 484 / 484 Balance 2985 / 2985 484 / 484 General: Alert, No apparent distress HEENT: Atraumatic, - - assymmetric face. induration and marked erythema of her chin with purulence expressed in 2 areas. Oral: Moist Mucosa, No Gingival or Mucosal Lesions/ Ulcerations Neck: No Nodes, Thyroid Normal Size and Texture Lungs: Clear to auscultation, Normal air movement, No rhonchi, No wheeze Cardiovascular: Regular rate, Regular Rhythm, Normal S1, Normal S2, No murmurs Abdomen: Bowel Sounds Present, Soft, Non Tender, Non-Distended, No Hepato-splenomegaly Extremities: No edema, No Calf Tenderness Skin: No rashes, No breakdown Psych/Mental Status: Normal Affect, Appropriate Laboratory Results 12/04/17 09:45: S.aureus Protein A PCR POSITIVE H, MRSA (PCR) POSITIVE H 12/04/17 10:06: POC Glucose 118 H 12/04/17 13:37: POC Glucose 160 H 12/04/17 16:02: POC Glucose 142 H 12/04/17 21:46: POC Glucose 157 H 12/05/17 06:34: PT 16.1 H, INR 1.3 12/05/17 06:34: WBC 8.2, RBC 3.33 L, Hgb 9.6 L, Hct 31.0 L, MCV 93.1, MCH 28.8, MCHC 31.0 L, RDW 14.9 H, RDW Differential 48.0 H, Plt Count 280, MPV 11.5, Immature Gran % (Auto) 0.900, Neut % (Auto) 76.2 H, Lymph % (Auto) 12.8 L, [place] % (Auto) 6.8, Eos % (Auto) 2.9, Baso % (Auto) 0.4, Absolute Neuts (auto) 6.2, Absolute Lymphs (auto) 1.05, Total Counted Not Reportable 12/05/17 06:34: Sodium 136, Potassium 3.9, Chloride 99, Carbon Dioxide 28.0, Anion Gap 9, BUN 32 H, Creatinine 1.33 H, Estim Creat Clear Calc 33.02, Est GFR (MDRD) Af Amer 51 L, Est GFR (MDRD) Non-Af 42 L, BUN/Creatinine Ratio 24.1 H, Glucose 192 H, Calcium 8.4 L Current Medications Albuterol Sulfate (Ventolin Aerosols) 2.5 mg INHALATION Q4H PRN PRN PRN Reason: SOB wheezing Albuterol/Ipratropium (Duoneb) 3 ml INHALATION Q6HWA.RT [facility] Last Admin: 12/05/17 06:55 Dose: 3 ml Amlodipine Besylate (Norvasc) 5 mg PO DAILY [facility] Last Admin: 12/05/17 08:33 Dose: Not Given Aspirin (Aspirin, Baby) 81 mg PO DAILY@0800 [facility] Last Admin: 12/05/17 08:19 Dose: Not Given Atorvastatin Calcium (Lipitor) 20 mg PO QHS [facility] Last Admin: 12/04/17 21:41 Dose: 20 mg Bisacodyl (Dulcolax) 5 mg PO DAILY PRN PRN PRN Reason: Constipation Calcium Carbonate (Os-Kirill 500) 500 mg PO BID [facility] Last Admin: 12/05/17 08:20 Dose: Not Given Carvedilol (Coreg) 6.25 mg PO BID [facility] Last Admin: 12/05/17 08:33 Dose: Not Given Cyanocobalamin (Vitamin B12) 2,000 mcg PO DAILY [facility] Last Admin: 12/05/17 08:20 Dose: Not Given Dextrose (D50w Syringe) 0 gm IV X1 PRN; Protocol PRN Reason: Hypoglycemia Diazepam (Valium) 10 mg PO TID [facility] Last Admin: 12/05/17 05:03 Dose: 10 mg Diphenoxylate HCl/Atropine (Lomotil) 1 tablet PO Q6H PRN PRN PRN Reason: Diarrhea Ferrous Sulfate (Ferrous Sulfate) 325 mg PO DAILY@0800 [facility] Last Admin: 12/05/17 08:19 Dose: Not Given Flecainide Acetate (Tambocor) 150 mg PO Q12 [facility] Last Admin: 12/05/17 08:52 Dose: Not Given Folic Acid (Folic Acid) 1 mg PO DAILY@0800 [facility] Last Admin: 12/05/17 08:19 Dose: Not Given Furosemide (Lasix) 60 mg PO TID [facility] Last Admin: 12/05/17 05:03 Dose: 60 mg Gabapentin (Neurontin) 200 mg PO TID [facility] Last Admin: 12/05/17 05:03 Dose: 200 mg Glucagon () 1 mg IM .X1 PRN PRN Reason: Hypoglycemia Vancomycin IV Pharmacy to Dose (1,000 ea/ Sodium Chloride) 500 mls @ 250 mls/hr IV X1 AMIE PRN Reason: Protocol Last Admin: 12/04/17 20:28 Dose: Not Given Sodium Chloride () 250 mls @ 15 mls/hr IV .[id number] PRN PRN Reason: SALINE FLUSH Vancomycin HCl 1,250 mg/ (Sodium Chloride) 275 mls @ 167 mls/hr IV Q24H [facility] Last Admin: 12/04/17 23:04 Dose: 167 mls/hr Cefazolin Sodium 2 gm/ Sodium (Chloride) 110 mls @ 150 mls/hr IV Q8 [facility] Last Admin: 12/05/17 05:02 Dose: 150 mls/hr Insulin Glargine (Lantus (Bkc)) 18 units SC QHS [facility] Last Admin: 12/04/17 21:47 Dose: 18 units Insulin Glargine (Lantus (Bkc)) 10 units SC BREAKFAST [facility] Last Admin: 12/05/17 08:52 Dose: Not Given Insulin Human Lispro (Humalog Kwikpen (Bkc)) 15 unit SQ LUNCH [facility] Last Admin: 12/04/17 14:03 Dose: 15 units Insulin Human Lispro (Humalog Kwikpen (Bkc)) 10 unit SQ DINNER [facility] Last Admin: 12/04/17 17:05 Dose: 10 u Insulin Human Lispro (Humalog Kwikpen (Bkc)) 10 unit SQ BREAKFAST [facility] Last Admin: 12/05/17 08:52 Dose: Not Given Insulin Human Lispro (Humalog Kwikpen (Bk)) 0 unit SQ ACHS [facility] PRN Reason: Protocol Last Admin: 12/05/17 08:51 Dose: Not Given Ipratropium [place] (Atrovent Nasal [place] (G)) 2 spray NASAL BID [facility] Last Admin: 12/04/17 21:40 Dose: 2 spray Labetalol HCl (Trandate) 10 mg IV Q4H PRN PRN PRN Reason: SBP > 160, hold for HR < 60 Lisinopril (Zestril) 20 mg PO DAILY [facility] Last Admin: 12/05/17 08:33 Dose: Not Given Loratadine (Claritin) 10 mg PO DAILY [facility] Last Admin: 12/05/17 08:20 Dose: Not Given Magnesium Hydroxide (Milk Of Magnesia) 30 ml PO DAILY PRN PRN PRN Reason: Constipation Morphine Sulfate () 1 - 2 mg IV Q4H PRN PRN PRN Reason: Moderate Pain (pain scale 4-5) Last Admin: 12/04/17 16:04 Dose: 2 mg Nutritional Formula (Lactose Free) (Glucerna Shake) 120 ml PO 4X/DAY [facility] Last Admin: 12/05/17 08:20 Dose: Not Given Nystatin (Mycostatin Powder) 1 applic TOPICAL BID [facility] PRN Reason: Protocol Last Admin: 12/04/17 21:39 Dose: 1 applicatio Ondansetron HCl (Zofran) 4 mg IV Q8H PRN PRN PRN Reason: NAUSEA Oxycodone HCl (Oxyir) 5 mg PO Q4H PRN PRN PRN Reason: Moderate Pain (pain scale 4-5) Last Admin: 12/05/17 05:03 Dose: 5 mg Pantoprazole Sodium (Protonix) 40 mg PO DAILY [facility] Last Admin: 12/04/17 10:07 Dose: 40 mg Potassium Chloride (K-Dur) 40 meq PO DAILY@0800 [facility] Last Admin: 12/05/17 08:19 Dose: Not Given Sodium Chloride () 5 - 30 ml IV UD PRN PRN Reason: SALINE FLUSH Last Admin: 12/04/17 22:01 Dose: 10 ml Tizanidine HCl (Zanaflex) 2 mg PO TID [facility] Last Admin: 12/05/17 05:03 Dose: 2 mg Trazodone HCl (Desyrel) 50 mg PO QHS [facility] Last Admin: 12/04/17 21:49 Dose: 50 mg Warfarin Sodium (Coumadin (Pbkc)) 7.5 mg PO TuWeTh@1700 [facility] PRN Reason: Protocol Warfarin Sodium (Coumadin (Pbkc)) 10 mg PO SuMoFrSa@1700 [facility] Last Admin: 12/04/17 16:08 Dose: 10 mg Medical Necessity - Tobacco Use Smoking Status: Never smoker Assessment/Plan All Active Problems (Last Reviewed 12/04/17 @ 01:53 by Sanjay Rhodes MD) Facial cellulitis (Acute) History of facial surgery (Resolved) History of tonsillectomy (Resolved) History of bilateral knee replacement (Resolved) History of cataract extraction (Resolved) History of syncope (Acute) Syncope (Acute) Acute asthmatic bronchitis (Resolved) Acute exacerbation of CHF (congestive heart failure) (Resolved) Atrial fibrillation with RVR (Resolved) Paroxysmal A-fib (Resolved) SOB (shortness of breath) (Resolved) 1. Facial cellulitis ongoing +MRSA Blood cultures and wound culture pending. on cefazolin and vanc ID to see may require I+D, PRS to see today 2. Chronic afib on Coreg and coumadin INR only 1.3 today despite taking coumadin. Will hold coumadin until decision made by PRS in regards to surgery. 3. DM2 fair control give half dose of lantus this AM in anticipation for surgery. 4. DVT proph: SCDs for now. Code Visit Inpatient E&M: 48624 Subs Hosp L2
--- NOTE | 2017-12-05 09:36 | PN_ITS ---
Patient Problems: Active and Suspected Problems (Last Reviewed 12/04/17 @ 01:53 by Sanjay Rhodes MD) Facial cellulitis (Acute) Subjective: Still with erythema of gold and purulence. Left side of her face is chronically swollen/larger than her right from prior basal cell surgery with skin flap. Vitals/I&O's: Vital Signs Temp Pulse Resp BP Pulse Ox 36.6 C 65 14 97/46 L 93 12/05/17 08:28 12/05/17 08:28 12/05/17 08:28 12/05/17 08:28 12/05/17 08:28 Oxygen Delivery Method Room Air Weight: 107.411 kg Body Mass Index (BMI) 41.9 Intake and Output for Last 24 Hours 12/03/17 12/04/17 12/05/17 23:59 23:59 23:59 Intake Total 2985 / 2985 484 / 484 Balance 2985 / 2985 484 / 484 General: Alert, No apparent distress HEENT: Atraumatic, - - assymmetric face. induration and marked erythema of her chin with purulence expressed in 2 areas. Oral: Moist Mucosa, No Gingival or Mucosal Lesions/ Ulcerations Neck: No Nodes, Thyroid Normal Size and Texture Lungs: Clear to auscultation, Normal air movement, No rhonchi, No wheeze Cardiovascular: Regular rate, Regular Rhythm, Normal S1, Normal S2, No murmurs Abdomen: Bowel Sounds Present, Soft, Non Tender, Non-Distended, No Hepato- splenomegaly Extremities: No edema, No Calf Tenderness Skin: No rashes, No breakdown Psych/Mental Status: Normal Affect, Appropriate Laboratory Results 12/04/17 09:45: S.aureus Protein A PCR POSITIVE H, MRSA (PCR) POSITIVE H 12/04/17 10:06: POC Glucose 118 H 12/04/17 13:37: POC Glucose 160 H 12/04/17 16:02: POC Glucose 142 H 12/04/17 21:46: POC Glucose 157 H 12/05/17 06:34: PT 16.1 H, INR 1.3 12/05/17 06:34: WBC 8.2, RBC 3.33 L, Hgb 9.6 L, Hct 31.0 L, MCV 93.1, MCH 28.8, MCHC 31.0 L, RDW 14.9 H, RDW Differential 48.0 H, Plt Count 280, MPV 11.5, Immature Gran % (Auto) 0.900, Neut % (Auto) 76.2 H, Lymph % (Auto) 12.8 L, [place] % (Auto) 6.8, Eos % (Auto) 2.9, Baso % (Auto) 0.4, Absolute Neuts (auto) 6.2, Absolute Lymphs (auto) 1.05, Total Counted Not Reportable 12/05/17 06:34: Sodium 136, Potassium 3.9, Chloride 99, Carbon Dioxide 28.0, Anion Gap 9, BUN 32 H, Creatinine 1.33 H, Estim Creat Clear Calc 33.02, Est GFR (MDRD) Af Amer 51 L, Est GFR (MDRD) Non-Af 42 L, BUN/Creatinine Ratio 24.1 H, Glucose 192 H, Calcium 8.4 L Current Medications Albuterol Sulfate (Ventolin Aerosols) 2.5 mg INHALATION Q4H PRN PRN PRN Reason: SOB wheezing Albuterol/Ipratropium (Duoneb) 3 ml INHALATION Q6HWA.RT [facility] Last Admin: 12/05/17 06:55 Dose: 3 ml Amlodipine Besylate (Norvasc) 5 mg PO DAILY [facility] Last Admin: 12/05/17 08:33 Dose: Not Given Aspirin (Aspirin, Baby) 81 mg PO DAILY@0800 [facility] Last Admin: 12/05/17 08:19 Dose: Not Given Atorvastatin Calcium (Lipitor) 20 mg PO QHS [facility] Last Admin: 12/04/17 21:41 Dose: 20 mg Bisacodyl (Dulcolax) 5 mg PO DAILY PRN PRN PRN Reason: Constipation Calcium Carbonate (Os-Kirill 500) 500 mg PO BID [facility] Last Admin: 12/05/17 08:20 Dose: Not Given Carvedilol (Coreg) 6.25 mg PO BID [facility] Last Admin: 12/05/17 08:33 Dose: Not Given Cyanocobalamin (Vitamin B12) 2,000 mcg PO DAILY [facility] Last Admin: 12/05/17 08:20 Dose: Not Given Dextrose (D50w Syringe) 0 gm IV X1 PRN; Protocol PRN Reason: Hypoglycemia Diazepam (Valium) 10 mg PO TID [facility] Last Admin: 12/05/17 05:03 Dose: 10 mg Diphenoxylate HCl/Atropine (Lomotil) 1 tablet PO Q6H PRN PRN PRN Reason: Diarrhea Ferrous Sulfate (Ferrous Sulfate) 325 mg PO DAILY@0800 [facility] Last Admin: 12/05/17 08:19 Dose: Not Given Flecainide Acetate (Tambocor) 150 mg PO Q12 [facility] Last Admin: 12/05/17 08:52 Dose: Not Given Folic Acid (Folic Acid) 1 mg PO DAILY@0800 [facility] Last Admin: 12/05/17 08:19 Dose: Not Given Furosemide (Lasix) 60 mg PO TID [facility] Last Admin: 12/05/17 05:03 Dose: 60 mg Gabapentin (Neurontin) 200 mg PO TID [facility] Last Admin: 12/05/17 05:03 Dose: 200 mg Glucagon () 1 mg IM .X1 PRN PRN Reason: Hypoglycemia Vancomycin IV Pharmacy to Dose (1,000 ea/ Sodium Chloride) 500 mls @ 250 mls/ hr IV X1 [facility] PRN Reason: Protocol Last Admin: 12/04/17 20:28 Dose: Not Given Sodium Chloride () 250 mls @ 15 mls/hr IV .[id number] PRN PRN Reason: SALINE FLUSH Vancomycin HCl 1,250 mg/ (Sodium Chloride) 275 mls @ 167 mls/hr IV Q24H [facility] Last Admin: 12/04/17 23:04 Dose: 167 mls/hr Cefazolin Sodium 2 gm/ Sodium (Chloride) 110 mls @ 150 mls/hr IV Q8 [facility] Last Admin: 12/05/17 05:02 Dose: 150 mls/hr Insulin Glargine (Lantus (Bkc)) 18 units SC QHS [facility] Last Admin: 12/04/17 21:47 Dose: 18 units Insulin Glargine (Lantus (Bkc)) 10 units SC BREAKFAST [facility] Last Admin: 12/05/17 08:52 Dose: Not Given Insulin Human Lispro (Humalog Kwikpen (Bkc)) 15 unit SQ LUNCH [facility] Last Admin: 12/04/17 14:03 Dose: 15 units Insulin Human Lispro (Humalog Kwikpen (Bkc)) 10 unit SQ DINNER [facility] Last Admin: 12/04/17 17:05 Dose: 10 u Insulin Human Lispro (Humalog Kwikpen (Bkc)) 10 unit SQ BREAKFAST [facility] Last Admin: 12/05/17 08:52 Dose: Not Given Insulin Human Lispro (Humalog Kwikpen (Bk)) 0 unit SQ ACHS [facility] PRN Reason: Protocol Last Admin: 12/05/17 08:51 Dose: Not Given Ipratropium [place] (Atrovent Nasal [place] (G)) 2 spray NASAL BID [facility] Last Admin: 12/04/17 21:40 Dose: 2 spray Labetalol HCl (Trandate) 10 mg IV Q4H PRN PRN PRN Reason: SBP > 160, hold for HR < 60 Lisinopril (Zestril) 20 mg PO DAILY [facility] Last Admin: 12/05/17 08:33 Dose: Not Given Loratadine (Claritin) 10 mg PO DAILY [facility] Last Admin: 12/05/17 08:20 Dose: Not Given Magnesium Hydroxide (Milk Of Magnesia) 30 ml PO DAILY PRN PRN PRN Reason: Constipation Morphine Sulfate () 1 - 2 mg IV Q4H PRN PRN PRN Reason: Moderate Pain (pain scale 4-5) Last Admin: 12/04/17 16:04 Dose: 2 mg Nutritional Formula (Lactose Free) (Glucerna Shake) 120 ml PO 4X/DAY [facility] Last Admin: 12/05/17 08:20 Dose: Not Given Nystatin (Mycostatin Powder) 1 applic TOPICAL BID [facility] PRN Reason: Protocol Last Admin: 12/04/17 21:39 Dose: 1 applicatio Ondansetron HCl (Zofran) 4 mg IV Q8H PRN PRN PRN Reason: NAUSEA Oxycodone HCl (Oxyir) 5 mg PO Q4H PRN PRN PRN Reason: Moderate Pain (pain scale 4-5) Last Admin: 12/05/17 05:03 Dose: 5 mg Pantoprazole Sodium (Protonix) 40 mg PO DAILY [facility] Last Admin: 12/04/17 10:07 Dose: 40 mg Potassium Chloride (K-Dur) 40 meq PO DAILY@0800 [facility] Last Admin: 12/05/17 08:19 Dose: Not Given Sodium Chloride () 5 - 30 ml IV UD PRN PRN Reason: SALINE FLUSH Last Admin: 12/04/17 22:01 Dose: 10 ml Tizanidine HCl (Zanaflex) 2 mg PO TID [facility] Last Admin: 12/05/17 05:03 Dose: 2 mg Trazodone HCl (Desyrel) 50 mg PO QHS [facility] Last Admin: 12/04/17 21:49 Dose: 50 mg Warfarin Sodium (Coumadin (Pbkc)) 7.5 mg PO TuWeTh@1700 [facility] PRN Reason: Protocol Warfarin Sodium (Coumadin (Pbkc)) 10 mg PO SuMoFrSa@1700 [facility] Last Admin: 12/04/17 16:08 Dose: 10 mg Medical Necessity - Tobacco Use Smoking Status: Never smoker Assessment/Plan All Active Problems (Last Reviewed 12/04/17 @ 01:53 by Sanjay Rhodes MD) Facial cellulitis (Acute) History of facial surgery (Resolved) History of tonsillectomy (Resolved) History of bilateral knee replacement (Resolved) History of cataract extraction (Resolved) History of syncope (Acute) Syncope (Acute) Acute asthmatic bronchitis (Resolved) Acute exacerbation of CHF (congestive heart failure) (Resolved) Atrial fibrillation with RVR (Resolved) Paroxysmal A-fib (Resolved) SOB (shortness of breath) (Resolved) 1. Facial cellulitis * ongoing * +MRSA * Blood cultures and wound culture pending. * on cefazolin and vanc * ID to see * may require I+D, PRS to see today 2. Chronic afib * on Coreg and coumadin * INR only 1.3 today despite taking coumadin. Will hold coumadin until decision made by PRS in regards to surgery. 3. DM2 * fair control * give half dose of lantus this AM in anticipation for surgery. 4. DVT proph: SCDs for now. Code Visit Inpatient E&M: [id number] Subs Hosp L2
[2017-12-05] MEDS: Pantoprazole Sodium 40 MG Tablet PO (10:38)
[2017-12-05] MEDS: Ipratropium Bromide 0.06% NASAL SPRAY 2 SPRAY NASAL ×2 (10:39→22:07)
[2017-12-05 10:51] LABS: Bedside Glucose 169 mg/dL (70-110)
[2017-12-05] MEDS: 0.9% NaCl Peripheral Flush Adult/Peds IV ×2 (12:11→15:04)
[2017-12-05] MEDS: Morphine 2 MG/ML Syringe IV (12:11)
[2017-12-05 13:36] LABS: Bedside Glucose 91 mg/dL (70-110)
--- NOTE | 2017-12-05 13:57 | PCM.HP.ID ---
Problem List (1) Facial cellulitis Status: Acute Reason for Consult: facial cellulitis Consulted by: Dr. Kraft History of Present Illness: The patient is a 67 year old F who presented with 1.5 months of chin pain, redness, swelling, and purulent drainage. Pain is severe, worse with chewing. Was put on keflex a few weeks ago without improvement, changed to clinda, again no improvement. No fever or chills. No n/v/d. Came to ED, admitted on vanc and cefazolin. PCR (+) MRSA, cx showing staph aureus. Plastics consulted. Full ROS performed and neg except as noted above. - Medical History Past Medical History (Chronic Problems): Chronic Problems (Last Reviewed 12/04/17 @ 01:53 by Sanjay Rhodes MD) Asthma (Chronic) Obesity (Chronic) Atrial enlargement, left (Chronic) BMI 40.0-44.9, adult (Chronic) Chronic diastolic (congestive) heart failure (Chronic) Diastolic dysfunction (Chronic) Sinus bradycardia (Chronic) Fatigue (Chronic) Long-term use of high-risk medication (Chronic) Bilateral lower extremity edema (Chronic) History of cardioversion (Chronic ~10/01/16) H/O right and left heart catheterization (Chronic ~05/15/15) H/O basal cell carcinoma excision (Chronic) Recurrent basal cell carcinoma following excision (Chronic) Persistent atrial fibrillation (Chronic) Chronic diastolic heart failure (Chronic) group home (current) use of anticoagulants (Chronic) HTN (hypertension) (Chronic) HLD (hyperlipidemia) (Chronic) Diabetes mellitus (Chronic) COPD (chronic obstructive pulmonary disease) (Chronic) NICKOLAS (obstructive sleep apnea) (Chronic) Morbid obesity (Chronic) Basal cell carcinoma of face (Chronic) Left face-has had 2 surgeries so far the first in February of 2015 Allergies/Adverse Reactions: Allergies ampicillin Allergy (Severe, Verified 12/03/17 16:05) Anaphylaxis hydrocodone bitartrate [From Vicodin] Allergy (Severe, Verified 12/03/17 16:05) Itching Penicillins Allergy (Severe, Verified 12/03/17 16:05) Anaphylaxis clarithromycin [From Biaxin] Allergy (Verified 12/03/17 16:05) Rash Red and itchy venom-honey bee [bee venom (honey bee)] Allergy (Verified 12/03/17 16:05) Nausea/Vom/Diarrhea Home Medications: Ambulatory Orders Medication Instructions Recorded Calcium Carbonate [Calcium] 500 mg PO BID 04/13/15 Diazepam [Valium] 10 mg PO TID 04/13/15 Metformin HCl [Glucophage] 1,000 mg PO QHS 04/13/15 Metformin HCl [Glucophage] 500 mg PO BREAKFAST 04/13/15 Omeprazole [Prilosec] 40 mg PO DAILY 04/13/15 traZODone [Desyrel] 50 mg PO QHS 04/13/15 Aspirin [Aspirin, Baby] 81 mg PO DAILY@0800 tab.chew 04/18/15 Tizanidine HCl [Zanaflex] 2 mg PO TID 05/13/15 Oxycodone HCl/Acetaminophen 7.5 mg PO TID 07/20/16 [Percocet 10-325 mg Tablet] Albuterol Inhaler [Ventolin Hfa] 2 puff INHALATION Q4H PRN PRN #1 08/14/16 inhaler Cetirizine HCl [Zyrtec] 10 mg PO DAILY #30 cap 08/18/16 Ferrous Sulfate 325 mg PO DAILY@0800 #30 tab 08/18/16 Gabapentin [Neurontin] 600 mg PO TID 01/26/17 atorvastatin 20 mg tablet 20 mg PO QHS tab 03/09/17 lisinopril 20 mg tablet 20 mg PO QDAY 03/09/17 flecainide 150 mg tablet 150 mg PO Q12H #180 tab 04/18/17 insulin NPH isophane U-100 human 18 unit SC QPM 04/18/17 100 unit/mL subcutaneous suspension insulin lispro (U-100) 100 unit/mL 24 unit SC QAM 04/18/17 subcutaneous solution amlodipine 5 mg tablet 5 mg PO QDAY #90 tab 06/27/17 Furosemide 40 mg PO TID 08/03/17 Insulin Lispro [Humalog] 10 unit SC LUNCH 08/03/17 Insulin Lispro [Humalog] 15 unit SQ DINNER 08/03/17 Insulin NPH Human [Humulin N (Bkc)] 10 units SC DAILY@0730 08/03/17 metolazone 2.5 mg tablet 2.5 mg PO .COMPLEX #10 tab 08/05/17 potassium chloride ER 20 mEq 40 meq PO QDAY #60 tab 08/17/17 tablet,extended release(part/cryst) warfarin 10 mg tablet 10 mg PO SUMOFRSA #30 tab 10/03/17 warfarin 7.5 mg tablet 7.5 mg PO TUWETH #30 tab 10/03/17 carvedilol 6.25 mg tablet 6.25 mg PO BID #60 tab 10/20/17 Biotin 1 tab PO DAILY 11/18/17 Cephalexin [Keflex] 500 mg PO Q6 #28 cap 11/18/17 Diphenoxylate/Atrop [Lomotil] 1 tab PO Q6H PRN PRN 11/18/17 Estrogen,Judy/Me-Testosterone 1 tab VAGINAL QWEEK 11/18/17 [Estratest Tablet] Folic Acid 0.8 mg PO DAILY 11/18/17 Ipratropium [place] 0.06% 2 spray NASAL BID 11/18/17 [ATROVENT NASAL SPRAY (g)] Vitamin B12 2,000 unit PO DAILY 11/18/17 Clindamycin HCl [Cleocin] 300 mg PO Q6H #40 cap 12/01/17 - Social History Tobacco Use: non-smoker Vital Signs Temp Pulse Resp BP Pulse Ox 97.9 F 90 16 135/71 H 99 12/05/17 08:28 12/05/17 13:15 12/05/17 13:15 12/05/17 10:43 12/05/17 13:15 Oxygen Flow Rate (L/min) 2 Oxygen Delivery Method Nasal Cannula Weight: 107.411 kg Body Mass Index (BMI) 41.9 Microbiology Past 72 Hours 12/04/17 09:45 Wound Culture - Preliminary Wound - Face Staphylococcus aureus Laboratory Tests Past 24 Hrs 12/05/17 12/05/17 12/05/17 06:34 06:34 06:34 WBC 8.2 RBC 3.33 L Hgb 9.6 L Hct 31.0 L MCV 93.1 MCH 28.8 MCHC 31.0 L RDW 14.9 H RDW Differential 48.0 H Plt Count 280 MPV 11.5 Immature Gran % (Auto) 0.900 Neut % (Auto) 76.2 H Lymph % (Auto) 12.8 L [place] % (Auto) 6.8 Eos % (Auto) 2.9 Baso % (Auto) 0.4 Absolute Neuts (auto) 6.2 Absolute Lymphs (auto) 1.05 Total Counted Not Reportable PT 16.1 H INR 1.3 Sodium 136 Potassium 3.9 Chloride 99 Carbon Dioxide 28.0 Anion Gap 9 BUN 32 H Creatinine 1.33 H Estim Creat Clear Calc 33.02 Est GFR (MDRD) Af Amer 51 L Est GFR (MDRD) Non-Af 42 L BUN/Creatinine Ratio 24.1 H Glucose 192 H Calcium 8.4 L - Other Studies Radiology: [] reviewed Other Studies: [] Route of nutrition/ use of supplements: [] Nutritional Intake: [] IV Site: [] Muro Catheter: [] - Physical Exam General: Alert, Oriented x3, Cooperative, - - uncomfortable HEENT: Atraumatic, PERRLA, EOMI Neck: Supple, No Nodes Lungs: Clear to auscultation, Normal air movement Cardiovascular: Regular rate, Regular Rhythm Abdomen: Soft, Non Tender, Non-Distended Extremities: No edema Skin: - - chin inflammation, no current drainage IV Site: Peripheral, without redness Musculoskeletal: No Tenderness to Palpation of Joints or Extremities Neurological: Cranial nerves II-XII grossly intact - Assessment/Plan Antibiotics: [] Assessment/Plan: [] Active and Suspected Problems (Last Reviewed 12/04/17 @ 01:53 by Sanjay Rhodes MD) Facial cellulitis (Acute) MRSA chin abscess and cellulitis - had been having purulent drainage. Dr. Soto to see. CT done. On vanc/cefazolin. MRSA pcr (+). Cx with staph aureus. Will follow, thank you.
--- NOTE | 2017-12-05 14:56 | PCM.CONS.GEN ---
Reason for Consult Date of Consultation: 12/05/17 Reason for Consultation: MRSA infection right chin. REFERRING PHYSICIAN: Dr. Lancaster. SURVEYING [employer]AKE RUNNER: Dr. Soto. 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 Patient reported that her lower lip surgery was in December 2016. She reports purulent drainage from her chin with increasing pain and swelling and redness. She states it has been difficult to chew at times. She denies any chills or fever. She failed outpatient therapy and was admitted to the hospital and was started on Ancef and Vancomycin. The MRSA screen was positive. As an outpatient she was treated with Keflex and Clindamycin. CT Facial Bones was done on 12/03/17 which showed soft tissue swelling on the chin with prominent nodular soft tissue density or masses which could represent an inflammatory process, an abscess, or further cancer. I was asked to evaluate this patient for surgical options for treatment. Past Medical History Past Medical History (Chronic Problems): Chronic Problems (Last Reviewed 12/04/17 @ 01:53 by Sanjay Rhodes MD) Personal history of malignant neoplasm of other sites of lip, oral cavity, and pharynx (Chronic) Personal history of skin cancer (Chronic) Asthma (Chronic) Obesity (Chronic) Atrial enlargement, left (Chronic) BMI 40.0-44.9, adult (Chronic) Chronic diastolic (congestive) heart failure (Chronic) Diastolic dysfunction (Chronic) Sinus bradycardia (Chronic) Fatigue (Chronic) Long-term use of high-risk medication (Chronic) Bilateral lower extremity edema (Chronic) History of cardioversion (Chronic ~10/01/16) H/O right and left heart catheterization (Chronic ~05/15/15) H/O basal cell carcinoma excision (Chronic) Recurrent basal cell carcinoma following excision (Chronic) Persistent atrial fibrillation (Chronic) Chronic diastolic heart failure (Chronic) alf (current) use of anticoagulants (Chronic) HTN (hypertension) (Chronic) HLD (hyperlipidemia) (Chronic) Diabetes mellitus (Chronic) COPD (chronic obstructive pulmonary disease) (Chronic) NICKOLAS (obstructive sleep apnea) (Chronic) Morbid obesity (Chronic) Basal cell carcinoma of face (Chronic) Left face-has had 2 surgeries so far the first in February of 2015 Medical History: Medical History (Last Reviewed 12/04/17 @ 01:53 by Sanjay Rhodes MD) Asthma (Chronic) J45.909 Obesity (Chronic) E66.9 Atrial enlargement, left (Chronic) I51.7 BMI 40.0-44.9, adult (Chronic) Z68.41 History of syncope (Acute) Z87.898 Chronic diastolic (congestive) heart failure (Chronic) I50.32 Diastolic dysfunction (Chronic) I51.9 Sinus bradycardia (Chronic) R00.1 Fatigue (Chronic) R53.83 Long-term use of high-risk medication (Chronic) Z79.899 Syncope (Acute) R55 Bilateral lower extremity edema (Chronic) R60.0 Recurrent basal cell carcinoma following excision (Chronic) C44.91 Persistent atrial fibrillation (Chronic) I48.1 Chronic diastolic heart failure (Chronic) I50.32 alf (current) use of anticoagulants (Chronic) Z79.01 HTN (hypertension) (Chronic) I10 HLD (hyperlipidemia) (Chronic) E78.5 Diabetes mellitus (Chronic) E11.9 COPD (chronic obstructive pulmonary disease) (Chronic) J44.9 NICKOLAS (obstructive sleep apnea) (Chronic) G47.33 Morbid obesity (Chronic) E66.01 Basal cell carcinoma of face (Chronic) C44.310 Left face-has had 2 surgeries so far the first in February of 2015 Allergies ampicillin Allergy (Severe, Verified 12/03/17 16:05) Anaphylaxis hydrocodone bitartrate [From Vicodin] Allergy (Severe, Verified 12/03/17 16:05) Itching Penicillins Allergy (Severe, Verified 12/03/17 16:05) Anaphylaxis clarithromycin [From Biaxin] Allergy (Verified 12/03/17 16:05) Rash Red and itchy venom-honey bee [bee venom (honey bee)] Allergy (Verified 12/03/17 16:05) Nausea/Vom/Diarrhea Current Medications Albuterol Sulfate (Ventolin Aerosols) 2.5 mg INHALATION Q4H PRN Albuterol/Ipratropium (Duoneb) 3 ml INHALATION Q6HWA.RT AMIE Amlodipine Besylate (Norvasc) 5 mg PO DAILY AMIE Aspirin (Aspirin, Baby) 81 mg PO DAILY@0800 AMIE Atorvastatin Calcium (Lipitor) 20 mg PO QHS AMIE Bisacodyl (Dulcolax) 5 mg PO DAILY PRN Calcium Carbonate (Os-Kirill 500) 500 mg PO BID [facility] Carvedilol (Coreg) 6.25 mg PO BID [facility] Cyanocobalamin (Vitamin B12) 2,000 mcg PO DAILY AMIE Diazepam (Valium) 10 mg PO TID [facility] Diphenoxylate HCl/Atropine (Lomotil) 1 tablet PO Q6H PRN Ferrous Sulfate (Ferrous Sulfate) 325 mg PO DAILY@0800 AMIE Flecainide Acetate (Tambocor) 150 mg PO Q12 AMIE Folic Acid (Folic Acid) 1 mg PO DAILY@0800 [facility] Furosemide (Lasix) 60 mg PO TID AMIE Gabapentin (Neurontin) 200 mg PO TID AMIE Glucagon () 1 mg IM .X1 PRN Vancomycin HCl 1,250 mg/ (Sodium Chloride) 275 mls @ 167 mls/hr IV Q24H AMIE Cefazolin Sodium 2 gm/ Sodium (Chloride) 110 mls @ 150 mls/hr IV Q8 AMIE Vancomycin IV Pharmacy to Dose (1 ea/ Sodium Chloride) 500 mls @ 250 mls/hr IV X1 PRN Insulin Glargine (Lantus (Bkc)) 18 units SC QHS AMIE Insulin Glargine (Lantus (Bkc)) 10 units SC BREAKFAST AMIE Insulin Human Lispro (Humalog Kwikpen (Bkc)) 15 unit SQ LUNCH AMIE Insulin Human Lispro (Humalog Kwikpen (Bkc)) 10 unit SQ DINNER AMIE Insulin Human Lispro (Humalog Kwikpen (Bkc)) 10 unit SQ BREAKFAST AMIE Insulin Human Lispro (Humalog Kwikpen (Bkc)) 0 unit SQ ACHS [facility] Ipratropium [place] (Atrovent Nasal Herman (G)) 2 spray NASAL BID AMIE Labetalol HCl (Trandate) 10 mg IV Q4H PRN Lisinopril (Zestril) 20 mg PO DAILY [facility] Loratadine (Claritin) 10 mg PO DAILY [facility] Magnesium Hydroxide (Milk Of Magnesia) 30 ml PO DAILY PRN Morphine Sulfate () 1 - 2 mg IV Q4H PRN Nutritional Formula (Lactose Free) (Glucerna Shake) 120 ml PO 4X/DAY [facility] Nystatin (Mycostatin Powder) 1 applic TOPICAL BID AMIE Ondansetron HCl (Zofran) 4 mg IV Q8H PRN Oxycodone HCl (Oxyir) 5 mg PO Q4H PRN Pantoprazole Sodium (Protonix) 40 mg PO DAILY [facility] Potassium Chloride (K-Dur) 40 meq PO DAILY@0800 [facility] Tizanidine HCl (Zanaflex) 2 mg PO TID [facility] Trazodone HCl (Desyrel) 50 mg PO QHS [facility] Warfarin Sodium (Coumadin (Pbkc)) 7.5 mg PO TuWeTh@1700 [facility] Warfarin Sodium (Coumadin (Pbkc)) 10 mg PO SuMoFrSa@1700 [facility] PAST MEDICAL HISTORY Asthma. Fatigue. Bilateral lower extremity edema. Chronic diastolic heart failure. Hypertension. Hyperlipidemia. Diabetes mellitus. COPD. NICKOLAS. Basal cell carcinoma left cheek. Squamous cell carcinoma lower lip. Atrial fibrillation. Syncope. Home Medications: Ambulatory Orders Medication Instructions Recorded Calcium Carbonate [Calcium] 500 mg PO BID 04/13/15 Diazepam [Valium] 10 mg PO TID 04/13/15 Metformin HCl [Glucophage] 1,000 mg PO QHS 04/13/15 Metformin HCl [Glucophage] 500 mg PO BREAKFAST 04/13/15 Omeprazole [Prilosec] 40 mg PO DAILY 04/13/15 traZODone [Desyrel] 50 mg PO QHS 04/13/15 Aspirin [Aspirin, Baby] 81 mg PO DAILY@0800 tab.chew 04/18/15 Tizanidine HCl [Zanaflex] 2 mg PO TID 05/13/15 Oxycodone HCl/Acetaminophen 7.5 mg PO TID 07/20/16 [Percocet 10-325 mg Tablet] Albuterol Inhaler [Ventolin Hfa] 2 puff INHALATION Q4H PRN PRN #1 08/14/16 inhaler Cetirizine HCl [Zyrtec] 10 mg PO DAILY #30 cap 08/18/16 Ferrous Sulfate 325 mg PO DAILY@0800 #30 tab 08/18/16 Gabapentin [Neurontin] 600 mg PO TID 01/26/17 atorvastatin 20 mg tablet 20 mg PO QHS tab 03/09/17 lisinopril 20 mg tablet 20 mg PO QDAY 03/09/17 flecainide 150 mg tablet 150 mg PO Q12H #180 tab 04/18/17 insulin NPH isophane U-100 human 18 unit SC QPM 04/18/17 100 unit/mL subcutaneous suspension insulin lispro (U-100) 100 unit/mL 24 unit SC QAM 04/18/17 subcutaneous solution amlodipine 5 mg tablet 5 mg PO QDAY #90 tab 06/27/17 Furosemide 40 mg PO TID 08/03/17 Insulin Lispro [Humalog] 10 unit SC LUNCH 08/03/17 Insulin Lispro [Humalog] 15 unit SQ DINNER 08/03/17 Insulin NPH Human [Humulin N (Bkc)] 10 units SC DAILY@0730 08/03/17 metolazone 2.5 mg tablet 2.5 mg PO .COMPLEX #10 tab 08/05/17 potassium chloride ER 20 mEq 40 meq PO QDAY #60 tab 08/17/17 tablet,extended release(part/cryst) warfarin 10 mg tablet 10 mg PO SUMOFRSA #30 tab 10/03/17 warfarin 7.5 mg tablet 7.5 mg PO TUWETH #30 tab 10/03/17 carvedilol 6.25 mg tablet 6.25 mg PO BID #60 tab 10/20/17 Biotin 1 tab PO DAILY 11/18/17 Cephalexin [Keflex] 500 mg PO Q6 #28 cap 11/18/17 Diphenoxylate/Atrop [Lomotil] 1 tab PO Q6H PRN PRN 11/18/17 Estrogen,Judy/Me-Testosterone 1 tab VAGINAL QWEEK 11/18/17 [Estratest Tablet] Folic Acid 0.8 mg PO DAILY 11/18/17 Ipratropium [place] 0.06% 2 spray NASAL BID 11/18/17 [ATROVENT NASAL SPRAY (g)] Vitamin B12 2,000 unit PO DAILY 11/18/17 Clindamycin HCl [Cleocin] 300 mg PO Q6H #40 cap 12/01/17 Surgical History: Surgical History (Last Reviewed 12/04/17 @ 01:53 by Sanjay Rhodes MD) History of facial surgery (Resolved) Z98.890 History of tonsillectomy (Resolved) Z98.890, Z90.89 History of bilateral knee replacement (Resolved) Z98.890, Z96.653 History of cataract extraction (Resolved) Z98.49 History of cardioversion (Chronic) Onset Date: ~10/01/16 Z98.890 H/O right and left heart catheterization (Chronic) Onset Date: ~05/15/15 Z98.890 H/O basal cell carcinoma excision (Chronic) Z98.890, Z85.828 Surgical History: total knee arthroplasty - Bilateral, tonsillectomy, - - Surgeries to the left face for basal cell carcinoma involving the left lower eyelid and then plastic repair. Psychiatric History: Depression, - [employer] History: No pertinent [employer] history Smoking Status: Never smoker - *Family History Paternal Family History: Family History (Last Reviewed 10/25/17 @ 09:00 by Selina Richards) Mother Hypertension Diabetes Father Heart disease Hypertension Diabetes Sister Hypertension Brother Diabetes History Items: Cancer, Diabetes, Hypertension Maternal Family History: Family History (Last Reviewed 10/25/17 @ 09:00 by Selina Richards) Mother Hypertension Diabetes Father Heart disease Hypertension Diabetes Sister Hypertension Brother Diabetes History Items: Heart Disease, Hypertension Sibling Family History: Family History (Last Reviewed 10/25/17 @ 09:00 by Selina Richards) Mother Hypertension Diabetes Father Heart disease Hypertension Diabetes Sister Hypertension Brother Diabetes History Items: Heart Disease Review of Systems Comment: Constitutional: Denies: Chills, Fever, Weight Change. Has fatigue. HEENT: Denies: Head Aches, Sinus Congestion, Sinus Drainage. Cardiovascular: Denies: Chest Pain, Palpitations. Respiratory: Denies: Cough, Shortness of breath at rest, Sputum production. Has COPD. Has NICKOLAS. Gastrointestinal: Denies: Abdominal Pain, Nausea, Vomiting. Genitourinary: Denies: Dysuria. Musculoskeletal: Denies: Joint Pain, Joint Tenderness. Skin: Has painful draining abscess right chin. Has personal history of skin cancer and lower lip cancer. Neurological: Denies: Numbness, Tingling, Focal weakness. Psychiatric: Denies: Anxiety, Depression. Hematologic/ Lymphatic: Has easy bruising as she is on Coumadin. Patient Problems: Active and Suspected Problems (Last Reviewed 12/04/17 @ 01:53 by Sanjay Rhodes MD) Osteomyelitis of mandible (Acute) Abscess of chin (Acute) Methicillin resistant Staphylococcus aureus infection (Acute) Facial cellulitis (Acute) - Physical Exam General: Alert, Oriented x3, Cooperative HEENT: - - PERRL. EOMI. Throat is clear. Multiple facial scars from previous skin cancer surgeries. On the chin there is redness, induration, swelling and tenderness. Some purulent drainage noted. Measures 5 cm. Some induration extends up to the lower lip. Neck: Supple, nontender. No cervical adenopathy. No suspicious lesions noted. Lungs: Clear to auscultation. Cardiovascular: Irregular Rate. Abdomen: soft and nondistended. Extremities: No clubbing, cyanosis, or edema. No suspicious lesions noted. Musculoskeletal: No Tenderness to Palpation of Joints or Extremities Neurological: Cranial nerves II-XII grossly intact Psych/Mental Status: Normal Affect, Appropriate Vital Signs Temp Pulse Resp BP Pulse Ox 97.9 F 90 16 135/71 H 99 12/05/17 08:28 12/05/17 13:15 12/05/17 13:15 12/05/17 10:43 12/05/17 13:15 Oxygen Flow Rate (L/min) 2 Oxygen Delivery Method Nasal Cannula Weight: 236 lb 12.8 oz Body Mass Index (BMI) 41.9 Intake and Output for Last 24 Hours 12/03/17 12/04/17 12/05/17 23:59 23:59 23:59 Intake Total 2985 / 2985 484 / 484 Balance 2985 / 2985 484 / 484 Microbiology Past 72 Hours 12/04/17 09:45 Wound Culture - Preliminary Wound - Face Staphylococcus aureus Laboratory Tests Past 24 Hrs 12/05/17 12/05/17 12/05/17 06:34 06:34 06:34 WBC 8.2 RBC 3.33 L Hgb 9.6 L Hct 31.0 L MCV 93.1 MCH 28.8 MCHC 31.0 L RDW 14.9 H RDW Differential 48.0 H Plt Count 280 MPV 11.5 Immature Gran % (Auto) 0.900 Neut % (Auto) 76.2 H Lymph % (Auto) 12.8 L Will % (Auto) 6.8 Eos % (Auto) 2.9 Baso % (Auto) 0.4 Absolute Neuts (auto) 6.2 Absolute Lymphs (auto) 1.05 Total Counted Not Reportable PT 16.1 H INR 1.3 Sodium 136 Potassium 3.9 Chloride 99 Carbon Dioxide 28.0 Anion Gap 9 BUN 32 H Creatinine 1.33 H Estim Creat Clear Calc 33.02 Est GFR (MDRD) Af Amer 51 L Est GFR (MDRD) Non-Af 42 L BUN/Creatinine Ratio 24.1 H Glucose 192 H Calcium 8.4 L POC Glucose 12/05/17 12/05/17 12/04/17 12:04 08:02 21:46 POC Glucose 91 169 H 157 H 12/04/17 16:02 POC Glucose 142 H Diagnostic Data Facial/Sinus 12/03/17 16:39 IMPRESSION: Mild nonspecific soft tissue swelling of the left side of the face. Prominent nodular soft tissue densities, or masses involving the lower left. This could be inflammatory, abscess not excluded, or neoplasm. Electronically Signed: Jewel Schaefer MD at 18:19 EDT , Service support , Assessment/Plan All Active Problems (Last Reviewed 12/04/17 @ 01:53 by Sanjay Rhodes MD) Osteomyelitis of mandible (Acute) Abscess of chin (Acute) Methicillin resistant Staphylococcus aureus infection (Acute) Facial cellulitis (Acute) History of facial surgery (Resolved) History of tonsillectomy (Resolved) History of bilateral knee replacement (Resolved) History of cataract extraction (Resolved) History of syncope (Acute) Syncope (Acute) Acute asthmatic bronchitis (Resolved) Acute exacerbation of CHF (congestive heart failure) (Resolved) Atrial fibrillation with RVR (Resolved) Paroxysmal A-fib (Resolved) SOB (shortness of breath) (Resolved) 1. Right chin MRSA draining abscess. 2. MRSA. 3. Personal history of skin cancer. 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 5. Diabetes mellitus. CT Facial Bones was reviewed. With increasing pain and persistent drainage from the chin, recommend incision and drainage and excisional debridement. With induration present and her history of recent excision of lower lip cancer, besides the MRSA infection, there is also concern that carcinoma is present. If extension to the bone is noted, then a partial ostectomy for osteomyelitis would be done. Will leave the wound open and proceed with postop wound care with a Silver dressing. Will send the tissue to Pathology for analysis to rule out carcinoma and to Microbiology for culture. A positive culture may necessitate antibiotic modification. She is diabetic and with the presence of MRSA, I anticipate the need for fci IV antibiotic therapy. Will order a PICC line. She is presently on Ancef and Vancomycin and will continue them for now. I anticipate increased metabolic demands from the infection and from the surgery. Will check a Prealbumin and encourage nutritional supplementation with protein to help the healing process. Will proceed with the surgery tomorrow under anesthesia. Patient was informed of the risks and complications of the procedure including alternatives to surgery. These were discussed with the patient personally. Patient voices understanding and wishes to proceed. She understands the wound will be left open and wound care started with Silver dressings daily. Post-discharge she will [facility]up [facility]. Patient is aware that if extensive cancer is present, then she would need to be evaluated at a tertiary center for Surgical Oncology treatment with further excision and complex soft tissue and/or bone reconstruction. She voices understanding and wishes to proceed. Code Visit Inpatient E&M: 49012 Init Hosp L2 - ICD-10 - L02.01, A49.02, Z85.828, Z85.818, E11.9
[2017-12-05] MEDS: Lisinopril 20 MG Tablet PO (15:00)
[2017-12-05] MEDS: Glucerna Shake 120 ML LIQUID PO ×2 (15:00→22:08)
[2017-12-05] MEDS: Cyanocobalamin 500 MCG Tablet 2000 MCG PO (15:01)
[2017-12-05] MEDS: Folic Acid 1 MG Tablet PO (15:01)
[2017-12-05] MEDS: Aspirin 81 MG TAB.CHEW PO (15:01)
[2017-12-05] MEDS: Calcium (Elemental) 500 MG Tablet PO ×2 (15:02→22:06)
[2017-12-05] MEDS: Ferrous Sulfate 325 MG Tablet PO (15:02)
[2017-12-05] MEDS: amLODIPine 5 MG Tablet PO (15:02)
[2017-12-05] MEDS: Loratadine 10 MG Tablet PO (15:02)
[2017-12-05] MEDS: Carvedilol 6.25 MG Tablet PO ×2 (15:17→22:07)
--- NOTE | 2017-12-05 15:46 | CHAPLAIN ---
Type of Pastoral Visit _x__ Initial Visit ___ Follow-up Visit ___ On-call Visit ___ General Patient Visit ___ Spiritual Assessment ___ Family Conference ___ Bereavement ___ Rapid Response ___ Code Blue ___ Other (describe below) Pastoral Care Referral From _x__ Patient ___ Family ___ Nurse ___ Physician ___ Joist Setter ___ Superintendent [employer]ary ___ Other (describe below) Sacrament/Intervention _x__ Active listening ___ Anointing ___ Gnosticism ___ Bereavement ___ Communion _x__ Lo exploration ___ ___ Life review _x__ Prayer ___ Reconciliation ___ Sacrament of Sick _x__ Supportive presence ___ Wedding ___ Other (describe below) Pastoral Comments patient describes half-way health issue and has questions about what is going to happen next for her; pt apparently has very little family support; pt is Worship but does not have active engagement with a local mandaeism at this time; pt is talkative; pt welcomes prayer and future spiritual support
[2017-12-05] MEDS: Insulin Lispro 100 UNIT/ML INSULN.PEN 10 UNIT SQ (16:45)
[2017-12-05] MEDS: Insulin Lispro 100 UNIT/ML INSULN.PEN SQ ×2 (16:45→22:14)
[2017-12-05 16:56] LABS: Bedside Glucose 159 mg/dL (70-110)
--- NOTE | 2017-12-05 17:44 | CASEMGMT ---
SEE RN SHIVANI ASSESS LINK: D/C PLAN: TBD JACK PARRISH Face to Face with patient for initial transition planning/care coordination assessment. JACK PARRISH introduced self and role at [facility]. Patient resting in bed, alert and oriented. Patient willing to participate in assessment and is able to answer all questions appropriately. Care providers, pharmacy, and demographics verified. See link attached. Pt states she ambulates independently and requires to assistive device to ambulate. Pt states she wishes to discharge home where she lives with her step-son, Lawrence, and his girlfriend. Discussion w/pt about [facility] of [facility] if she would be discharged home on IV ATB's. Pt states she has no preference. Pt states he has no further needs or concerns at this time. CM to follow for discharge planning needs that may arise. Kathy FERNANDEZ RN, CM
--- NOTE | 2017-12-05 18:20 | RAD_ITS ---
STUDY: X-RAY CHEST REASON FOR EXAM: Female, 67 years old. PICC line placement TECHNIQUE: Single AP portable view of the chest. COMPARISON: 08/03/2017 chest x-ray FINDINGS: There is a right-sided PICC line and the tip is in the distal subclavian. The lungs are clear and expanded. There is no demonstrated pleural abnormality. There is borderline cardiomegaly. There is an enlarged appearance of the right hilum. Normal visualized pulmonary arteries. Normal visualized aortic arch and descending thoracic aorta. There are diffuse degenerative changes of the visualized thoracic spine. Normal visualized ribs, clavicles, and shoulders. There is no demonstrated abnormality of the visualized soft tissue structures of the upper abdomen. RAD/CXR for Line Placement IMPRESSION: Enlarged appearance of the right hilum which may represent lymphadenopathy. Mild cardiomegaly Right-sided PICC line tip in the distal subclavian. This should be advanced approximately 6 cm for improved placement. Electronically Signed: Evy Cano MD at 18:56 EDT Tel , Service support ,
--- NOTE | 2017-12-05 19:09 | CPS ---
Patient states she does not wear her CPAP at home and does not wish to wear one here. CPAP order cancelled. Brad LU
--- NOTE | 2017-12-05 19:40 | RAD_ITS ---
STUDY: X-RAY CHEST REASON FOR EXAM: Female, 67 years old. PICC line placement TECHNIQUE: Frontal view of the chest COMPARISON: 12/05/2017 at 6:20 PM FINDINGS: There is a right sided PICC line with its tip overlying the right subclavian vein. This is stable in appearance. The lungs are clear. There are no pleural effusions. There is no pneumothorax. The heart is normal in size. The visualized osseous structures are within normal limits. RAD/CXR for Line Placement IMPRESSION: Right-sided PICC line tip overlying the subclavian vein. This is stable in appearance. No pneumothorax. Clear lungs. Electronically Signed: Minesh Vann, at 20:24 EDT Tel , Service support ,
--- NOTE | 2017-12-05 21:24 | RAD_ITS ---
STUDY: X-RAY CHEST REASON FOR EXAM: Female, 67 years old. PICC line TECHNIQUE: Frontal view of the chest COMPARISON: 12/05/2017 FINDINGS: There is a right-sided PICC line with its tip at the junction of the right brachiocephalic vein and superior vena cava. There is a left-sided PICC line with its tip in the superior vena cava. The lungs are clear. There are no pleural effusions. There is no pneumothorax. The heart is normal in size. The visualized osseous structures are within normal limits. RAD/CXR for Line Placement IMPRESSION: Satisfactory position of the bilateral PICC lines. Electronically Signed: Minesh Vann, at 21:58 EDT Tel , Service support ,
[2017-12-05] MEDS: Flecainide 150 MG Tablet PO (22:06)
[2017-12-05] MEDS: traZODone 50 MG Tablet PO (22:07)
[2017-12-05] MEDS: Atorvastatin Calcium 20 MG Tablet PO (22:07)
[2017-12-05] MEDS: Nystatin Powder 15gm Bottle 1 APPLIC TOPICAL (22:19)
[2017-12-05 22:31] LABS: Bedside Glucose 180 mg/dL (70-110)
[2017-12-06] VITALS (11 sets, daily range): BP systolic 106–153; BP diastolic 67–87; PULSE 60–107; RESP 16–18; TEMP 36.3–36.8; O2SAT 85–100
[2017-12-06] MEDS: Morphine 2 MG/ML Syringe IV ×4 (04:24→22:28)
[2017-12-06] MEDS: Ondansetron 4 MG/2 ML Vial IV (04:33)
[2017-12-06] MEDS: Cefazolin 2 GM in 0.9% Normal Saline 100 ML IV (05:34)
--- NOTE | 2017-12-06 06:00 | EKG12_ITS ---
Test Reason : POST-OP, HX A-FIB Blood Pressure : / mmHG Vent. Rate : 094 BPM Atrial Rate : 133 BPM P-R Int : 000 ms QRS Dur : 110 ms QT Int : 384 ms P-R-T Axes : 000 024 082 degrees QTc Int : 480 ms Atrial fibrillation Abnormal ECG When compared with ECG of 06-DEC-2017 05:13, MANUAL COMPARISON REQUIRED, DATA IS UNCONFIRMED Confirmed by DEDE PAREDES, FABY ([id number]), food editor FARNAZ BRITO ([id number]) on 12/08/2017 2:39:41 PM Referred By: CHEYENNE Confirmed By:FABY AGUAYO MD
[2017-12-06 06:05] LABS: Absolute Lymphocyte Count 0.91 X10^3/ul (0.83-4.51); Absolute Neutrophil Count 6.3 X10^3/uL (2.0-7.7); Basophil# 0.03 X10^3/uL; Basophil% 0.4 % (0-1); Eosinophil# 0.19 X10^3/uL; Eosinophils% 2.3 % (0-5); Hematocrit 32.1 % (37-47); Lymphocyte # 0.91 X10^3/ul (4.0); Lymphocyte % 11.2 % (19-41); Mean Corp Hgb Conc 31.2 g/gl (32-36); Mean Corpuscular Hgb 28.7 pg (27.0-32.0); Mean Corpuscular Volume 92.2 fL (81-99); Mean Platelet Vol. 11.5 fl (6.2-12.0); Monocyte# 0.62 X10^3/uL; Monocyte% 7.6 % (0-10); Neutrophil # 6.32 X10^3/uL (2.7-7.7); Neutrophil % 77.9 % (47-70); POSITIVE COUNT NO; POSITIVE DIFFERENTIAL NO; POSITIVE MORPHOLOGY NO; Platelet Count 287 K/mm3 (150-450); RBC Distribution Width SD 48.5 fl (35.1-43.9); Red Blood Count 3.48 M/mm3 (4.2-5.4); White Blood Count 8.1 K/mm3 (4.4-11.0)
[2017-12-06 06:13] LABS: International Normalized Ratio 1.3; Partial Thromboplast Time 36.3 Seconds (24.1-36.2); Prothrombin Time (Protime)PT. 16.3 SECONDS (11.7-14.9)
[2017-12-06 06:21] LABS: Anion Gap 10 (5-15); BUN 32 mg/dL (7-18); BUN/Creat Ratio 22.2 RATIO (10-20); Calcium,Total 8.5 mg/dL (8.5-10.1); Chloride 95 mmol/L (98-107); Creatinine, Serum 1.44 mg/dL (0.55-1.02); EST Glomerular Filtration Rate 38 mL/min (>60); Est Glom Filt Rate - Afr Amer 46 mL/min (>60); Glucose 195 mg/dL (74-106); Potassium 3.2 mmol/L (3.5-5.1); Sodium Level 139 mmol/L (136-145)
[2017-12-06] MEDS: Insulin Lispro 100 UNIT/ML INSULN.PEN SQ ×3 (06:36→22:35)
[2017-12-06] MEDS: 0.9% NaCl Peripheral Flush Adult/Peds IV ×2 (06:38→11:47)
[2017-12-06 06:45] LABS: Bedside Glucose 190 mg/dL (70-110)
--- NOTE | 2017-12-06 07:25 | ABS_PTH ---
PATIENT: MANDI BRITO LOC: MS2 U#:[id number] AGE/SX: 67/F ROOM: [facility] [place] RE12/03/[address]: Dr. Sudhir Lancaster DO : 1950 BED: 1 DIS: 12/10/2017 SPEC #: [id number] RECD: 12/06/17 13:30 STATUS: KATJA REQ #: [id number] DESHAWN: 12/06/17 07:[address]: Tucker Soto DEPT: SURGICAL PATHOLOGY RECD BY: Bowen Thompson ENTERED: 12/06/17 14:00 SP TYPE: Abscess OTHR DR: DO Dr. Sanjay Bruner MD Dr. James A Slaby, MD Dr. Richard Jones Jr., MD Dr. Robert Leininger, MD Tissues: A - Chin B - Chin C - Mandible, NOS Procedures: Decalcification bone/plaque Surgery Specimen Level III Surgery Specimen Level IV Comments: @ Ordering doctor for SUIV edited from to @ by ELSI at 12/06/17 1520 @ Submitting doctor edited from to @ by RGOOD at 12/06/17 1520 HEADER OPERATION: Surgical preparation right chin with incision and drainage PRE-OP DIAGNOSIS: Right chin MRSA drain abscess; personal history of skin cancer; personal history of lower lip cancer; diabetes mellitus, possible osteomyelitis TISSUE SUBMITTED: A ? Right chin MRSA abscess with history of skin cancer, suture at 12 o?clock, B ? Deeper margins right chin, C ? Mandible bone MICROSCOPIC DIAGNOSIS A. Right chin lesion, biopsy: Invasive well differentiated squamous cell carcinoma, incompletely excised. See comment. Perineural invasion is not seen. B. Deeper margin, right chin: Invasive squamous cell carcinoma. See comment. C. Mandible bone: Piece of bone with attached fibroconnective tissue, negative for carcinoma. SJ:lizzy 12/08/17 COMMENT A. The tumor is present at the peripheral and deep margins of the specimen. The skeletal muscle tissue is also involved by the tumor. B. The tumor involves most of the specimen, focally including inked resection margins. MICROSCOPIC DESCRIPTION Slides are reviewed. GROSS DESCRIPTION A - Received in fixative is one container labeled with the patient's name and designated right chin MRSA abscess with history of skin cancer, suture at 12 o'clock. The specimen consists of a piece of childs-white skin ellipse measuring 2.5 x 1 cm and up to 1 cm in thickness. The specimen is inked as follows: 12 o?clock margin ? black, 6 o?clock margin ? blue, 3 o?clock tip ? yellow and 9 o?clock tip ? green. A focal area of ulceration is noted at the skin surface. The specimen is serially sectioned and submitted entirely in three cassettes as follows: 1 ? 3 and 9 o?clock tip, 2 & 3 ? rest of the specimen. B - Received in fixative is one container labeled with the patient's name and designated deeper margins. The specimen consists of a piece of childs-pink soft tissue measuring 2.5 x 2 x 0.5 cm. One surface is inked black and opposite surface is inked blue. The entire specimen is submitted in two cassettes. C - Received in fixative is one container labeled with the patient's name and designated mandible bone. The specimen consists of multiple fragments of bone that in aggregate measure 1.5 x 0.2 x 0.1 cm. The entire specimen is submitted in one cassette after decalcification. / SJ:rg 12/06/17 TC:0 CPT: 97255 x2, 87319, 47498 ADDENDUM ADDENDUM ADDENDUM ADDENDUM ADDENDUM ADDENDUM 12/20/2017 12:07 ADDENDUM 12/20/2017 12:07 ADDENDUM 12/20/2017 12:07 ADDENDUM 12/20/2017 12:07 ADDENDUM 12/20/2017 12:07 C. Mandible bone: Negative for acute osteomyelitis. SJ:rg 12/20/17
[2017-12-06 07:51] LABS: Hemoglobin A1c 5.7 % (4.2-6.3)
--- NOTE | 2017-12-06 08:05 | NURSING ---
report called to Svetlana in AC at this time. Elvis transported pt down to pre-op area via bed.
--- NOTE | 2017-12-06 08:34 | PCM.PN.HOSP ---
Patient Problems: Active and Suspected Problems (Last Reviewed 12/04/17 @ 01:53 by Sanjay Rhodes MD) Facial cellulitis (Acute) Subjective: Increased pain over her chin. Vitals/I&O's: Vital Signs Temp Pulse Resp BP Pulse Ox 36.5 C L 107 H 18 139/84 H 95 12/06/17 08:00 12/06/17 08:00 12/06/17 08:00 12/06/17 08:00 12/06/17 08:00 Oxygen Flow Rate (L/min) 2 Oxygen Delivery Method Room Air Weight: 107.411 kg Body Mass Index (BMI) 41.9 Intake and Output for Last 24 Hours 12/04/17 12/05/17 12/06/17 23:59 23:59 23:59 Intake Total 2985 / 2985 1239 / 1239 Balance 2985 / 2985 1239 / 1239 General: Alert, Cooperative, No apparent distress, - - up at side of bed. HEENT: Atraumatic, - - decreased induration of chin. + fluctuance. scab formation. chronic surgical funes on forehead and left face Oral: Moist Mucosa, No Gingival or Mucosal Lesions/ Ulcerations Neck: No Nodes, Thyroid Normal Size and Texture Lungs: Clear to auscultation Cardiovascular: Regular rate, Regular Rhythm, Normal S1, Normal S2, No murmurs Abdomen: Bowel Sounds Present, Soft, Non Tender, Non-Distended, No Hepato-splenomegaly Extremities: No edema, No Calf Tenderness Skin: No rashes, No breakdown Psych/Mental Status: Normal Affect, Appropriate Microbiology Past 72 Hours 12/03/17 21:31 Blood Culture (Wb) - Left Wrist Blood Culture - Preliminary No growth in 48 hours. 12/03/17 21:15 Blood Culture (Wb) - No Site/Description Given Blood Culture - Preliminary No growth in 48 hours. 12/04/17 09:45 Wound - Face Gram Stain - Final 12/04/17 09:45 Wound - Face Wound Culture - Preliminary Staphylococcus aureus Laboratory Results 12/05/17 08:02: POC Glucose 169 H 12/05/17 12:04: POC Glucose 91 12/05/17 16:44: POC Glucose 159 H 12/05/17 22:11: POC Glucose 180 H 12/06/17 05:40: WBC 8.1, RBC 3.48 L, Hgb 10.0 L, Hct 32.1 L, MCV 92.2, MCH 28.7, MCHC 31.2 L, RDW 15.0 H, RDW Differential 48.5 H, Plt Count 287, MPV 11.5, Immature Gran % (Auto) 0.600, Neut % (Auto) 77.9 H, Lymph % (Auto) 11.2 L, [place] % (Auto) 7.6, Eos % (Auto) 2.3, Baso % (Auto) 0.4, Absolute Neuts (auto) 6.3, Absolute Lymphs (auto) 0.91, Total Counted Not Reportable 12/06/17 05:40: PT 16.3 H, INR 1.3, APTT 36.3 H 12/06/17 05:40: Sodium 139, Potassium 3.2 L, Chloride 95 L, Carbon Dioxide 34.0 H, Anion Gap 10, BUN 32 H, Creatinine 1.44 H, Estim Creat Clear Calc 30.50, Est GFR (MDRD) Af Amer 46 L, Est GFR (MDRD) Non-Af 38 L, BUN/Creatinine Ratio 22.2 H, Glucose 195 H, Calcium 8.5 12/06/17 05:40: Hemoglobin A1c 5.7 12/06/17 06:35: POC Glucose 190 H Current Medications Albuterol Sulfate (Ventolin Aerosols) 2.5 mg INHALATION Q4H PRN PRN PRN Reason: SOB wheezing Albuterol/Ipratropium (Duoneb) 3 ml INHALATION Q6HWA.RT [facility] Last Admin: 12/06/17 07:52 Dose: Not Given Amlodipine Besylate (Norvasc) 5 mg PO DAILY [facility] Last Admin: 12/05/17 15:02 Dose: 5 mg Aspirin (Aspirin, Baby) 81 mg PO DAILY@0800 [facility] Last Admin: 12/05/17 15:01 Dose: 81 mg Atorvastatin Calcium (Lipitor) 20 mg PO QHS [facility] Last Admin: 12/05/17 22:07 Dose: 20 mg Bisacodyl (Dulcolax) 5 mg PO DAILY PRN PRN PRN Reason: Constipation Calcium Carbonate (Os-Kirill 500) 500 mg PO BID [facility] Last Admin: 12/05/17 22:06 Dose: 500 mg Carvedilol (Coreg) 6.25 mg PO BID [facility] Last Admin: 12/05/17 22:07 Dose: 6.25 mg Cyanocobalamin (Vitamin B12) 2,000 mcg PO DAILY [facility] Last Admin: 12/05/17 15:01 Dose: 2,000 mcg Dextrose (D50w Syringe) 0 gm IV X1 PRN; Protocol PRN Reason: Hypoglycemia Diazepam (Valium) 10 mg PO TID [facility] Last Admin: 12/06/17 05:34 Dose: Not Given Diphenoxylate HCl/Atropine (Lomotil) 1 tablet PO Q6H PRN PRN PRN Reason: Diarrhea Ferrous Sulfate (Ferrous Sulfate) 325 mg PO DAILY@0800 [facility] Last Admin: 12/05/17 15:02 Dose: 325 mg Flecainide Acetate (Tambocor) 150 mg PO Q12 [facility] Last Admin: 12/05/17 22:06 Dose: 150 mg Folic Acid (Folic Acid) 1 mg PO DAILY@0800 [facility] Last Admin: 12/05/17 15:01 Dose: 1 mg Furosemide (Lasix) 60 mg PO TID [facility] Last Admin: 12/06/17 05:34 Dose: Not Given Gabapentin (Neurontin) 200 mg PO TID [facility] Last Admin: 12/06/17 05:34 Dose: Not Given Glucagon () 1 mg IM .X1 PRN PRN Reason: Hypoglycemia Sodium Chloride () 250 mls @ 15 mls/hr IV .[id number] PRN PRN Reason: SALINE FLUSH Vancomycin HCl 1,250 mg/ (Sodium Chloride) 275 mls @ 167 mls/hr IV Q24H [facility] Last Admin: 12/05/17 23:55 Dose: 167 mls/hr Cefazolin Sodium 2 gm/ Sodium (Chloride) 110 mls @ 150 mls/hr IV Q8 [facility] Last Admin: 12/06/17 05:34 Dose: 150 mls/hr Vancomycin IV Pharmacy to Dose (1 ea/ Sodium Chloride) 500 mls @ 250 mls/hr IV X1 PRN PRN Reason: Protocol Insulin Glargine (Lantus (Bkc)) 18 units SC QHS [facility] Last Admin: 12/05/17 22:12 Dose: 18 units Insulin Glargine (Lantus (Bkc)) 10 units SC BREAKFAST [facility] Last Admin: 12/05/17 08:52 Dose: Not Given Insulin Human Lispro (Humalog Kwikpen (Bkc)) 15 unit SQ LUNCH [facility] Last Admin: 12/05/17 12:10 Dose: Not Given Insulin Human Lispro (Humalog Kwikpen (Bkc)) 10 unit SQ DINNER [facility] Last Admin: 12/05/17 16:45 Dose: 10 u Insulin Human Lispro (Humalog Kwikpen (Bkc)) 10 unit SQ BREAKFAST [facility] Last Admin: 12/05/17 08:52 Dose: Not Given Insulin Human Lispro (Humalog Kwikpen (Bkc)) 0 unit SQ ACHS [facility] PRN Reason: Protocol Last Admin: 12/06/17 06:36 Dose: 1 units Ipratropium [place] (Atrovent Nasal [place] (G)) 2 spray NASAL BID [facility] Last Admin: 12/05/17 22:07 Dose: 2 spray Labetalol HCl (Trandate) 10 mg IV Q4H PRN PRN PRN Reason: SBP > 160, hold for HR < 60 Lisinopril (Zestril) 20 mg PO DAILY [facility] Last Admin: 12/05/17 15:00 Dose: 20 mg Loratadine (Claritin) 10 mg PO DAILY [facility] Last Admin: 12/05/17 15:02 Dose: 10 mg Magnesium Hydroxide (Milk Of Magnesia) 30 ml PO DAILY PRN PRN PRN Reason: Constipation Morphine Sulfate () 1 - 2 mg IV Q4H PRN PRN PRN Reason: Moderate Pain (pain scale 4-5) Last Admin: 12/06/17 04:24 Dose: 2 mg Nutritional Formula (Lactose Free) (Glucerna Shake) 120 ml PO 4X/DAY [facility] Last Admin: 12/05/17 22:08 Dose: 120 ml Nystatin (Mycostatin Powder) 1 applic TOPICAL BID [facility] PRN Reason: Protocol Last Admin: 12/05/17 22:19 Dose: 1 applicatio Ondansetron HCl (Zofran) 4 mg IV Q8H PRN PRN PRN Reason: NAUSEA Last Admin: 12/06/17 04:33 Dose: 4 mg Oxycodone HCl (Oxyir) 5 mg PO Q4H PRN PRN PRN Reason: Moderate Pain (pain scale 4-5) Last Admin: 12/05/17 05:03 Dose: 5 mg Pantoprazole Sodium (Protonix) 40 mg PO DAILY [facility] Last Admin: 12/05/17 10:38 Dose: 40 mg Potassium Chloride (K-Dur) 40 meq PO DAILY@0800 [facility] Last Admin: 12/05/17 08:19 Dose: Not Given Sodium Chloride () 5 - 30 ml IV UD PRN PRN Reason: SALINE FLUSH Last Admin: 12/06/17 06:38 Dose: 10 ml Tizanidine HCl (Zanaflex) 2 mg PO TID [facility] Last Admin: 12/06/17 05:34 Dose: Not Given Trazodone HCl (Desyrel) 50 mg PO QHS [facility] Last Admin: 12/05/17 22:07 Dose: 50 mg Warfarin Sodium (Coumadin (Pbkc)) 7.5 mg PO TuWeTh@1700 [facility] PRN Reason: Protocol Warfarin Sodium (Coumadin (Pbkc)) 10 mg PO SuMoFrSa@1700 [facility] Last Admin: 12/05/17 15:34 Dose: Not Given Medical Necessity - Tobacco Use Smoking Status: Never smoker Assessment/Plan All Active Problems (Last Reviewed 12/04/17 @ 01:53 by Sanjay Rhodes MD) Facial cellulitis (Acute) History of facial surgery (Resolved) History of tonsillectomy (Resolved) History of bilateral knee replacement (Resolved) History of cataract extraction (Resolved) History of syncope (Acute) Syncope (Acute) Acute asthmatic bronchitis (Resolved) Acute exacerbation of CHF (congestive heart failure) (Resolved) Atrial fibrillation with RVR (Resolved) Paroxysmal A-fib (Resolved) SOB (shortness of breath) (Resolved) 1. Facial cellulitis ongoing +MRSA Blood cultures negative so far wound culture shows Staph aureus. on cefazolin and vanc ID and PRS following. I+D today 2. Chronic afib on Coreg and coumadin INR only 1.3 today despite taking coumadin. Resume coumadin when ok with PRS 3. DM2 fair control give half dose of lantus this AM in anticipation for surgery. 4. DVT proph: SCDs for now. Code Visit Inpatient E&M: 91549 Subs Hosp L2
--- NOTE | 2017-12-06 08:38 | PN_ITS ---
Patient Problems: Active and Suspected Problems (Last Reviewed 12/04/17 @ 01:53 by Sanjay Rhodes MD) Facial cellulitis (Acute) Subjective: Increased pain over her chin. Vitals/I&O's: Vital Signs Temp Pulse Resp BP Pulse Ox 36.5 C L 107 H 18 139/84 H 95 12/06/17 08:00 12/06/17 08:00 12/06/17 08:00 12/06/17 08:00 12/06/17 08:00 Oxygen Flow Rate (L/min) 2 Oxygen Delivery Method Room Air Weight: 107.411 kg Body Mass Index (BMI) 41.9 Intake and Output for Last 24 Hours 12/04/17 12/05/17 12/06/17 23:59 23:59 23:59 Intake Total 2985 / 2985 1239 / 1239 Balance 2985 / 2985 1239 / 1239 General: Alert, Cooperative, No apparent distress, - - up at side of bed. HEENT: Atraumatic, - - decreased induration of chin. + fluctuance. scab formation. chronic surgical funes on forehead and left face Oral: Moist Mucosa, No Gingival or Mucosal Lesions/ Ulcerations Neck: No Nodes, Thyroid Normal Size and Texture Lungs: Clear to auscultation Cardiovascular: Regular rate, Regular Rhythm, Normal S1, Normal S2, No murmurs Abdomen: Bowel Sounds Present, Soft, Non Tender, Non-Distended, No Hepato- splenomegaly Extremities: No edema, No Calf Tenderness Skin: No rashes, No breakdown Psych/Mental Status: Normal Affect, Appropriate Microbiology Past 72 Hours 12/03/17 21:31 Blood Culture (Wb) - Left Wrist Blood Culture - Preliminary No growth in 48 hours. 12/03/17 21:15 Blood Culture (Wb) - No Site/Description Given Blood Culture - Preliminary No growth in 48 hours. 12/04/17 09:45 Wound - Face Gram Stain - Final 12/04/17 09:45 Wound - Face Wound Culture - Preliminary Staphylococcus aureus Laboratory Results 12/05/17 08:02: POC Glucose 169 H 12/05/17 12:04: POC Glucose 91 12/05/17 16:44: POC Glucose 159 H 12/05/17 22:11: POC Glucose 180 H 12/06/17 05:40: WBC 8.1, RBC 3.48 L, Hgb 10.0 L, Hct 32.1 L, MCV 92.2, MCH 28.7 , MCHC 31.2 L, RDW 15.0 H, RDW Differential 48.5 H, Plt Count 287, MPV 11.5, Immature Gran % (Auto) 0.600, Neut % (Auto) 77.9 H, Lymph % (Auto) 11.2 L, [place] % (Auto) 7.6, Eos % (Auto) 2.3, Baso % (Auto) 0.4, Absolute Neuts (auto) 6.3, Absolute Lymphs (auto) 0.91, Total Counted Not Reportable 12/06/17 05:40: PT 16.3 H, INR 1.3, APTT 36.3 H 12/06/17 05:40: Sodium 139, Potassium 3.2 L, Chloride 95 L, Carbon Dioxide 34.0 H, Anion Gap 10, BUN 32 H, Creatinine 1.44 H, Estim Creat Clear Calc 30.50, Est GFR (MDRD) Af Amer 46 L, Est GFR (MDRD) Non-Af 38 L, BUN/Creatinine Ratio 22.2 H , Glucose 195 H, Calcium 8.5 12/06/17 05:40: Hemoglobin A1c 5.7 12/06/17 06:35: POC Glucose 190 H Current Medications Albuterol Sulfate (Ventolin Aerosols) 2.5 mg INHALATION Q4H PRN PRN PRN Reason: SOB wheezing Albuterol/Ipratropium (Duoneb) 3 ml INHALATION Q6HWA.RT [facility] Last Admin: 12/06/17 07:52 Dose: Not Given Amlodipine Besylate (Norvasc) 5 mg PO DAILY [facility] Last Admin: 12/05/17 15:02 Dose: 5 mg Aspirin (Aspirin, Baby) 81 mg PO DAILY@0800 [facility] Last Admin: 12/05/17 15:01 Dose: 81 mg Atorvastatin Calcium (Lipitor) 20 mg PO QHS [facility] Last Admin: 12/05/17 22:07 Dose: 20 mg Bisacodyl (Dulcolax) 5 mg PO DAILY PRN PRN PRN Reason: Constipation Calcium Carbonate (Os-Kirill 500) 500 mg PO BID [facility] Last Admin: 12/05/17 22:06 Dose: 500 mg Carvedilol (Coreg) 6.25 mg PO BID [facility] Last Admin: 12/05/17 22:07 Dose: 6.25 mg Cyanocobalamin (Vitamin B12) 2,000 mcg PO DAILY [facility] Last Admin: 12/05/17 15:01 Dose: 2,000 mcg Dextrose (D50w Syringe) 0 gm IV X1 PRN; Protocol PRN Reason: Hypoglycemia Diazepam (Valium) 10 mg PO TID [facility] Last Admin: 12/06/17 05:34 Dose: Not Given Diphenoxylate HCl/Atropine (Lomotil) 1 tablet PO Q6H PRN PRN PRN Reason: Diarrhea Ferrous Sulfate (Ferrous Sulfate) 325 mg PO DAILY@0800 [facility] Last Admin: 12/05/17 15:02 Dose: 325 mg Flecainide Acetate (Tambocor) 150 mg PO Q12 [facility] Last Admin: 12/05/17 22:06 Dose: 150 mg Folic Acid (Folic Acid) 1 mg PO DAILY@0800 [facility] Last Admin: 12/05/17 15:01 Dose: 1 mg Furosemide (Lasix) 60 mg PO TID [facility] Last Admin: 12/06/17 05:34 Dose: Not Given Gabapentin (Neurontin) 200 mg PO TID [facility] Last Admin: 12/06/17 05:34 Dose: Not Given Glucagon () 1 mg IM .X1 PRN PRN Reason: Hypoglycemia Sodium Chloride () 250 mls @ 15 mls/hr IV .[id number] PRN PRN Reason: SALINE FLUSH Vancomycin HCl 1,250 mg/ (Sodium Chloride) 275 mls @ 167 mls/hr IV Q24H [facility] Last Admin: 12/05/17 23:55 Dose: 167 mls/hr Cefazolin Sodium 2 gm/ Sodium (Chloride) 110 mls @ 150 mls/hr IV Q8 [facility] Last Admin: 12/06/17 05:34 Dose: 150 mls/hr Vancomycin IV Pharmacy to Dose (1 ea/ Sodium Chloride) 500 mls @ 250 mls/hr IV X1 PRN PRN Reason: Protocol Insulin Glargine (Lantus (Bkc)) 18 units SC QHS [facility] Last Admin: 12/05/17 22:12 Dose: 18 units Insulin Glargine (Lantus (Bkc)) 10 units SC BREAKFAST [facility] Last Admin: 12/05/17 08:52 Dose: Not Given Insulin Human Lispro (Humalog Kwikpen (Bkc)) 15 unit SQ LUNCH [facility] Last Admin: 12/05/17 12:10 Dose: Not Given Insulin Human Lispro (Humalog Kwikpen (Bkc)) 10 unit SQ DINNER [facility] Last Admin: 12/05/17 16:45 Dose: 10 u Insulin Human Lispro (Humalog Kwikpen (Bkc)) 10 unit SQ BREAKFAST [facility] Last Admin: 12/05/17 08:52 Dose: Not Given Insulin Human Lispro (Humalog Kwikpen (Bkc)) 0 unit SQ ACHS [facility] PRN Reason: Protocol Last Admin: 12/06/17 06:36 Dose: 1 units Ipratropium [place] (Atrovent Nasal [place] (G)) 2 spray NASAL BID [facility] Last Admin: 12/05/17 22:07 Dose: 2 spray Labetalol HCl (Trandate) 10 mg IV Q4H PRN PRN PRN Reason: SBP > 160, hold for HR < 60 Lisinopril (Zestril) 20 mg PO DAILY [facility] Last Admin: 12/05/17 15:00 Dose: 20 mg Loratadine (Claritin) 10 mg PO DAILY [facility] Last Admin: 12/05/17 15:02 Dose: 10 mg Magnesium Hydroxide (Milk Of Magnesia) 30 ml PO DAILY PRN PRN PRN Reason: Constipation Morphine Sulfate () 1 - 2 mg IV Q4H PRN PRN PRN Reason: Moderate Pain (pain scale 4-5) Last Admin: 12/06/17 04:24 Dose: 2 mg Nutritional Formula (Lactose Free) (Glucerna Shake) 120 ml PO 4X/DAY [facility] Last Admin: 12/05/17 22:08 Dose: 120 ml Nystatin (Mycostatin Powder) 1 applic TOPICAL BID [facility] PRN Reason: Protocol Last Admin: 12/05/17 22:19 Dose: 1 applicatio Ondansetron HCl (Zofran) 4 mg IV Q8H PRN PRN PRN Reason: NAUSEA Last Admin: 12/06/17 04:33 Dose: 4 mg Oxycodone HCl (Oxyir) 5 mg PO Q4H PRN PRN PRN Reason: Moderate Pain (pain scale 4-5) Last Admin: 12/05/17 05:03 Dose: 5 mg Pantoprazole Sodium (Protonix) 40 mg PO DAILY [facility] Last Admin: 12/05/17 10:38 Dose: 40 mg Potassium Chloride (K-Dur) 40 meq PO DAILY@0800 [facility] Last Admin: 12/05/17 08:19 Dose: Not Given Sodium Chloride () 5 - 30 ml IV UD PRN PRN Reason: SALINE FLUSH Last Admin: 12/06/17 06:38 Dose: 10 ml Tizanidine HCl (Zanaflex) 2 mg PO TID [facility] Last Admin: 12/06/17 05:34 Dose: Not Given Trazodone HCl (Desyrel) 50 mg PO QHS [facility] Last Admin: 12/05/17 22:07 Dose: 50 mg Warfarin Sodium (Coumadin (Pbkc)) 7.5 mg PO TuWeTh@1700 [facility] PRN Reason: Protocol Warfarin Sodium (Coumadin (Pbkc)) 10 mg PO SuMoFrSa@1700 [facility] Last Admin: 12/05/17 15:34 Dose: Not Given Medical Necessity - Tobacco Use Smoking Status: Never smoker Assessment/Plan All Active Problems (Last Reviewed 12/04/17 @ 01:53 by Sanjay Rhodes MD) Facial cellulitis (Acute) History of facial surgery (Resolved) History of tonsillectomy (Resolved) History of bilateral knee replacement (Resolved) History of cataract extraction (Resolved) History of syncope (Acute) Syncope (Acute) Acute asthmatic bronchitis (Resolved) Acute exacerbation of CHF (congestive heart failure) (Resolved) Atrial fibrillation with RVR (Resolved) Paroxysmal A-fib (Resolved) SOB (shortness of breath) (Resolved) 1. Facial cellulitis * ongoing * +MRSA * Blood cultures negative so far * wound culture shows Staph aureus. * on cefazolin and vanc * ID and PRS following. * I+D today 2. Chronic afib * on Coreg and coumadin * INR only 1.3 today despite taking coumadin. * Resume coumadin when ok with PRS 3. DM2 * fair control * give half dose of lantus this AM in anticipation for surgery. 4. DVT proph: SCDs for now. Code Visit Inpatient E&M: 35316 Subs Hosp L2
--- NOTE | 2017-12-06 09:48 | OP.PN_ITS ---
Immediate Post-Op Note Date of Procedure: 12/06/17 Primary Surgeon/Physician: Tucker Soto mold loft worker: None Pre-Operative Diagnosis: 1. Right chin MRSA draining abscess. 2. MRSA. 3. Personal history of skin cancer. 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 5. Diabetes mellitus. Post-Operative Diagnosis: 1. Right chin MRSA draining abscess. 2. MRSA. 3. Personal history of skin cancer. 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 5. Diabetes mellitus. 6. Possible osteomyelitis. Surgery/Procedure Performed:: 1. Surgical preparation right chin with incision and drainage and excisional debridement MRSA abscess (6 cm2). 2. Partial ostectomy anterior mandible for osteomyelitis. 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 Patient reported that her lower lip surgery was in December 2016. She reports purulent drainage from her chin with increasing pain and swelling and redness. She states it has been difficult to chew at times. She denies any chills or fever. She failed outpatient therapy and was admitted to the hospital and was started on Ancef and Vancomycin. The MRSA screen was positive. As an outpatient she was treated with Keflex and Clindamycin. CT Facial Bones was done on 12/03/17 which showed soft tissue swelling on the chin with prominent nodular soft tissue density or masses which could represent an inflammatory process, an abscess, or further cancer. I was asked to evaluate this patient for surgical options for treatment. Today the patient underwent surgical preparation right chin with incision and drainage and excisional debridement MRSA abscess (6 cm2) and partial ostectomy anterior mandible for osteomyelitis. Size of defect right chin - 4 x 1.5 x 1.5 cm. Estimated Blood Loss: 20 ml. Specimen's removed: 1. Right chin MRSA abscess tissue to Pathology and Microbiology. 2. Deeper right chin margin tissue to Pathology. 3. Mandible bone to Pathology and Microbiology. Drains: None. Type of Anesthesia:: Local MAC - xylocaine with epinephrine and IV sedation. - Admit VTE Documentation VTE Present on Admission: No - Patient is on Coumadin for atrial fibrillation. VTE Mechan Device Prophylaxis: SCD's VTE Pharm Prophylaxis ordered?: Yes
--- NOTE | 2017-12-06 10:07 | EKG12_ITS ---
Test Reason : PRE OP Blood Pressure : / mmHG Vent. Rate : 087 BPM Atrial Rate : 288 BPM P-R Int : 000 ms QRS Dur : 106 ms QT Int : 394 ms P-R-T Axes : 000 -08 152 degrees QTc Int : 474 ms Atrial fibrillation Low voltage QRS T wave abnormality, consider lateral ischemia or digitalis effect Abnormal ECG Confirmed by DEDE PAREDES, FABY ([id number]), legal editor FARNAZ BRITO ([id number] on 12/16/2017 3:04:32 PM Referred By: MANSOOR Confirmed By:FABY AGUAYO MD
--- NOTE | 2017-12-06 11:25 | NURSING ---
Pt went to surgery this am for I&D of the chin. will assess wound in the am tomorrow. nursing is to begin Aquacel AG dressings tomorrow per Dr Soto's order.
[2017-12-06] MEDS: Loratadine 10 MG Tablet PO (11:45)
[2017-12-06] MEDS: Ferrous Sulfate 325 MG Tablet PO (11:45)
[2017-12-06] MEDS: Calcium (Elemental) 500 MG Tablet PO ×2 (11:45→22:29)
[2017-12-06] MEDS: Flecainide 150 MG Tablet PO ×2 (11:45→22:29)
[2017-12-06] MEDS: Pantoprazole Sodium 40 MG Tablet PO (11:45)
[2017-12-06] MEDS: Folic Acid 1 MG Tablet PO (11:45)
[2017-12-06] MEDS: amLODIPine 5 MG Tablet PO (11:45)
[2017-12-06] MEDS: Carvedilol 6.25 MG Tablet PO ×2 (11:45→22:30)
[2017-12-06] MEDS: Cyanocobalamin 500 MCG Tablet 2000 MCG PO (11:45)
[2017-12-06] MEDS: Lisinopril 20 MG Tablet PO (11:45)
[2017-12-06] MEDS: Aspirin 81 MG TAB.CHEW PO (11:45)
[2017-12-06] MEDS: Nystatin Powder 15gm Bottle 1 APPLIC TOPICAL ×2 (11:46→22:31)
[2017-12-06 12:00] LABS: Bedside Glucose 139 mg/dL (70-110)
[2017-12-06] MEDS: Insulin Lispro 100 UNIT/ML INSULN.PEN 15 UNIT SQ (13:03)
[2017-12-06] MEDS: Glucerna Shake 120 ML LIQUID PO ×3 (14:00→22:32)
[2017-12-06] MEDS: diazePAM 5 MG Tablet 10 MG PO ×2 (14:01→22:29)
[2017-12-06] MEDS: Furosemide 40 MG Tablet 60 MG PO ×2 (14:01→22:30)
[2017-12-06] MEDS: tiZANidine HCl 2 MG Tablet PO ×2 (14:01→22:29)
[2017-12-06] MEDS: Gabapentin 100 MG Capsule 200 MG PO ×2 (14:01→22:29)
[2017-12-06] MEDS: oxyCODONE 5 MG Tablet PO (16:46)
[2017-12-06] MEDS: Insulin Lispro 100 UNIT/ML INSULN.PEN 10 UNIT SQ (16:52)
[2017-12-06 17:00] LABS: Bedside Glucose 168 mg/dL (70-110)
[2017-12-06] MEDS: Ipratropium/Albuterol Sulfate 3 ML AMPUL.NEB INHALATION (19:29)
[2017-12-06] MEDS: Ipratropium Bromide 0.06% NASAL SPRAY 2 SPRAY NASAL (22:30)
[2017-12-06] MEDS: Atorvastatin Calcium 20 MG Tablet PO (22:30)
[2017-12-06] MEDS: traZODone 50 MG Tablet PO (22:30)
[2017-12-06 22:50] LABS: Bedside Glucose 152 mg/dL (70-110)
[2017-12-06 22:58] LABS: Vancomycin, Trough Level 16.1 ug/mL (5.0-15.0)
--- NOTE | 2017-12-06 23:24 | OP.PCM_ITS ---
Report of Operation Date of Procedure: 12/06/17 Pre-Operative Diagnosis: 1. Right chin MRSA draining abscess. 2. MRSA. 3. Personal history of skin cancer. 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 5. Diabetes mellitus. Post-Operative Diagnosis: 1. Right chin MRSA draining abscess. 2. MRSA. 3. Personal history of skin cancer. 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 5. Diabetes mellitus. 6. Possible osteomyelitis. Surgery/Procedure Performed:: 1. Surgical preparation right chin with incision and drainage and excisional debridement MRSA abscess (6 cm2). 2. Partial ostectomy anterior mandible for osteomyelitis. 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 Patient reported that her lower lip surgery was in December 2016. She reports purulent drainage from her chin with increasing pain and swelling and redness. She states it has been difficult to chew at times. She denies any chills or fever. She failed outpatient therapy and was admitted to the hospital and was started on Ancef and Vancomycin. The MRSA screen was positive. As an outpatient she was treated with Keflex and Clindamycin. CT Facial Bones was done on 12/03/17 which showed soft tissue swelling on the chin with prominent nodular soft tissue density or masses which could represent an inflammatory process, an abscess, or further cancer. I was asked to evaluate this patient for surgical options for treatment. Patient was informed of the risks and complications of the procedure including alternatives to surgery. These were discussed with the patient personally. Patient voices understanding and wishes to proceed. Size of defect right chin - 4 x 1.5 x 1.5 cm. interpreter and translator: None Type of Anesthesia:: Local MAC - xylocaine with epinephrine and IV sedation. Specimen's removed: 1. Right chin MRSA abscess tissue to Pathology and Microbiology. 2. Deeper right chin margin tissue to Pathology. 3. Mandible bone to Pathology and Microbiology. Drains: None. Estimated Blood Loss (mL): 20 ml. Description of Procedure: Patient was taken to OR in supine position and was given IV sedation. The chin area was prepped and draped in the usual fashion. SCD's were placed for DVT prophylaxis. Perioperative antibiotics were given intravenously. The chin area was infiltrated with xylocaine and epinephrine. After waiting 5 minutes for the anesthetic to take effect, an incision and drainage was done over the area of greatest redness and area of purulent drainage. A lot of thickened pus was seen. The pus extended down to the underlying bone. The surrounding indurated tissue could be related to the infection but clinically there were areas of induration that were suspicious for carcinoma. This surrounding induration was excised and sent to Pathology for analysis to rule out carcinoma. Some of the tissue was sent to Microbiology for culture. A positive culture may necessitate antibiotic modification. When I debrided the base of the purulent cavity with a curette, there was surrounding tissue that extended to the bone that I excised separately as deeper margin and sent it to Pathology to rule out carcinoma. Because the pus cavity extended to the underlying bone, I proceeded with a partial ostectomy of the anterior mandible for osteomyelitis. I used a rongeur and obtained multiple pieces from several areas of the anterior mandible. Half the bone was sent to Pathology for analysis to rule out osteomyelitis and half the bone was sent to Microbiology for culture. A rasp was used to smooth out the bone. The wound was irrigated with saline. The size of the defect after incision and drainage and excisional debridement was 4 x 1.5 x 1.5 cm. Hemostasis was obtained with electrocautery. The remaining tissue looked viable with good bleeding and no clinical evidence of further infection. Some residual induration is present which could represent effects of the infection or it could represent carcinoma. If extensive carcinoma is present, then the patient would need to be evaluated at a tertiary center by Surgical Oncology for a more extensive excision which may include the lower lip and some of the underlying bone. This would create a complex defect that would need complex reconstruction with muscle flaps, probably a microvascular free tissue transfer. The wound was then packed with Mepitel nonadherent dressing followed by 4x4 gauze and Betadine followed by dry 4x4 gauze. Patient tolerated the procedure well and was sent to PACU in satisfactory condition. Patient will be sent upstairs for continued postop care. Will apply a Silver dressing tomorrow. She will continue her IV antibiotics. Grafts/Implants Used: None. - Complications None. - Admit VTE Documentation VTE Present on Admission: No - Patient is on Coumadin for atrial fibrillation. VTE Mechan Device Prophylaxis: SCD's VTE Pharm Prophylaxis ordered?: Yes Code Visit Surgery Charges CPT - 65304 ICD-10 - L02.01, A49.02, Z85.828, Z85.818, E11.9 23852 M27.2, A49.02, L02.01, Z85.828, Z85.818, E11.9
[2017-12-07 03:12] VITALS: BP 113/70; PULSE 80; RESP 16; TEMP 36.6; O2SAT 95
[2017-12-07 05:48] LABS: Hematocrit 30.2 % (37-47); Hemoglobin 9.3 g/dl (12.0-15.0); Mean Corp Hgb Conc 30.8 g/gl (32-36); Mean Corpuscular Hgb 28.2 pg (27.0-32.0); Mean Corpuscular Volume 91.5 fL (81-99); Mean Platelet Vol. 11.1 fl (6.2-12.0); Platelet Count 246 K/mm3 (150-450); RBC Distribution Width CV 15.3 % (11.6-14.6); RBC Distribution Width SD 50.6 fl (35.1-43.9); White Blood Count 7.7 K/mm3 (4.4-11.0)
[2017-12-07 06:00] LABS: Anion Gap 8 (5-15); BUN 33 mg/dL (7-18); BUN/Creat Ratio 28.7 RATIO (10-20); Calcium,Total 8.2 mg/dL (8.5-10.1); Chloride 97 mmol/L (98-107); Creatinine, Serum 1.15 mg/dL (0.55-1.02); EST Glomerular Filtration Rate 50 mL/min (>60); Est Glom Filt Rate - Afr Amer 60 mL/min (>60); Estimated Creatinine Clearance 38.19 ml/min; Glucose 140 mg/dL (74-106); Potassium 3.7 mmol/L (3.5-5.1); Prealbumin 19.7 mg/dL (20.0-40.0); Sodium Level 140 mmol/L (136-145)
[2017-12-07 06:02] LABS: Scan Indicated on CBC? Y/N NO
[2017-12-07 06:40] VITALS: O2SAT 98
[2017-12-07] MEDS: Gabapentin 100 MG Capsule 200 MG PO ×3 (06:44→21:57)
[2017-12-07] MEDS: tiZANidine HCl 2 MG Tablet PO ×3 (06:44→21:58)
[2017-12-07] MEDS: Furosemide 40 MG Tablet 60 MG PO ×3 (06:44→21:58)
[2017-12-07] MEDS: 0.9% NaCl Peripheral Flush Adult/Peds IV ×2 (06:45→09:39)
[2017-12-07] MEDS: diazePAM 5 MG Tablet 10 MG PO ×3 (06:47→21:58)
[2017-12-07] MEDS: Morphine 2 MG/ML Syringe IV ×3 (06:47→17:44)
[2017-12-07 06:51] LABS: Bedside Glucose 131 mg/dL (70-110)
--- NOTE | 2017-12-07 08:43 | PCM.PN.HOSP ---
Patient Problems: Active and Suspected Problems (Last Reviewed 12/04/17 @ 01:53 by Sanjay Rhodes MD) Facial cellulitis (Acute) Subjective: Pain in chin helped only with morphine. Vitals/I&O's: Vital Signs Temp Pulse Resp BP Pulse Ox 36.6 C 80 16 113/70 98 12/07/17 03:12 12/07/17 03:12 12/07/17 03:12 12/07/17 03:12 12/07/17 06:40 Oxygen Flow Rate (L/min) 2 Oxygen Delivery Method Nasal Cannula Weight: 107.411 kg Body Mass Index (BMI) 41.9 Intake and Output for Last 24 Hours 12/05/17 12/06/17 12/07/17 23:59 23:59 23:59 Intake Total 1238 / 1239 1948 Balance 1238 / 1239 1948 General: Alert, - - groggy. afebrile. HEENT: Atraumatic, Normocephalic Oral: Moist Mucosa, No Gingival or Mucosal Lesions/ Ulcerations Neck: No Nodes, Thyroid Normal Size and Texture Lungs: Clear to auscultation, Normal air movement, No rhonchi, No wheeze Cardiovascular: Regular rate, Regular Rhythm, Normal S1, Normal S2, No murmurs Abdomen: Bowel Sounds Present, Soft, Non Tender, Non-Distended, No Hepato-splenomegaly Extremities: No edema, No Calf Tenderness Skin: No rashes, No breakdown Psych/Mental Status: Normal Affect, Appropriate Microbiology Past 72 Hours 12/06/17 09:15 Tissue - Bone Gram Stain - Final 12/06/17 09:15 Tissue - Other Gram Stain - Final 12/04/17 09:45 Wound - Face Gram Stain - Final 12/04/17 09:45 Wound - Face Wound Culture - Final Meth. resistant Staph. aureus 12/03/17 21:31 Blood Culture (Wb) - Left Wrist Blood Culture - Preliminary No growth in 48 hours. 12/03/17 21:15 Blood Culture (Wb) - No Site/Description Given Blood Culture - Preliminary No growth in 48 hours. Laboratory Results 12/06/17 10:19: Troponin I < 0.015 12/06/17 11:34: POC Glucose 139 H 12/06/17 16:45: POC Glucose 168 H 12/06/17 22:24: Vancomycin Trough 16.1 H 12/06/17 22:34: POC Glucose 152 H 12/07/17 05:22: WBC 7.7, RBC 3.30 L, Hgb 9.3 L, Hct 30.2 L, MCV 91.5, MCH 28.2, MCHC 30.8 L, RDW 15.3 H, RDW Differential 50.6 H, Plt Count 246, MPV 11.1 12/07/17 05:22: Sodium 140, Potassium 3.7, Chloride 97 L, Carbon Dioxide 35.0 H, Anion Gap 8, BUN 33 H, Creatinine 1.15 H, Estim Creat Clear Calc 38.19, Est GFR (MDRD) Af Amer 60, Est GFR (MDRD) Non-Af 50 L, BUN/Creatinine Ratio 28.7 H, Glucose 140 H, Calcium 8.2 L, Prealbumin 19.7 L 12/07/17 06:43: POC Glucose 131 H Current Medications Albuterol Sulfate (Ventolin Aerosols) 2.5 mg INHALATION Q4H PRN PRN PRN Reason: SOB wheezing Albuterol/Ipratropium (Duoneb) 3 ml INHALATION Q6HWA.RT [facility] Last Admin: 12/07/17 06:40 Dose: Not Given Amlodipine Besylate (Norvasc) 5 mg PO DAILY [facility] Last Admin: 12/06/17 11:45 Dose: 5 mg Aspirin (Aspirin, Baby) 81 mg PO DAILY@0800 [facility] Last Admin: 12/06/17 11:45 Dose: 81 mg Atorvastatin Calcium (Lipitor) 20 mg PO QHS [facility] Last Admin: 12/06/17 22:30 Dose: 20 mg Bisacodyl (Dulcolax) 5 mg PO DAILY PRN PRN PRN Reason: Constipation Calcium Carbonate (Os-Kirill 500) 500 mg PO BID [facility] Last Admin: 12/06/17 22:29 Dose: 500 mg Carvedilol (Coreg) 6.25 mg PO BID [facility] Last Admin: 12/06/17 22:30 Dose: 6.25 mg Cyanocobalamin (Vitamin B12) 2,000 mcg PO DAILY [facility] Last Admin: 12/06/17 11:45 Dose: 2,000 mcg Dextrose (D50w Syringe) 0 gm IV X1 PRN; Protocol PRN Reason: Hypoglycemia Diazepam (Valium) 10 mg PO TID [facility] Last Admin: 12/07/17 06:47 Dose: 10 mg Diphenoxylate HCl/Atropine (Lomotil) 1 tablet PO Q6H PRN PRN PRN Reason: Diarrhea Ferrous Sulfate (Ferrous Sulfate) 325 mg PO DAILY@0800 [facility] Last Admin: 12/06/17 11:45 Dose: 325 mg Flecainide Acetate (Tambocor) 150 mg PO Q12 [facility] Last Admin: 12/06/17 22:29 Dose: 150 mg Folic Acid (Folic Acid) 1 mg PO DAILY@0800 [facility] Last Admin: 12/06/17 11:45 Dose: 1 mg Furosemide (Lasix) 60 mg PO TID [facility] Last Admin: 12/07/17 06:44 Dose: 60 mg Gabapentin (Neurontin) 200 mg PO TID [facility] Last Admin: 12/07/17 06:44 Dose: 200 mg Glucagon () 1 mg IM .X1 PRN PRN Reason: Hypoglycemia Sodium Chloride () 250 mls @ 15 mls/hr IV .[id number] PRN PRN Reason: SALINE FLUSH Vancomycin HCl 1,250 mg/ (Sodium Chloride) 275 mls @ 167 mls/hr IV Q24H [facility] Last Admin: 12/06/17 22:30 Dose: 167 mls/hr Vancomycin IV Pharmacy to Dose (1 ea/ Sodium Chloride) 500 mls @ 250 mls/hr IV X1 PRN PRN Reason: Protocol Insulin Glargine (Lantus (Bkc)) 18 units SC QHS [facility] Last Admin: 12/06/17 22:35 Dose: 18 units Insulin Glargine (Lantus (Bkc)) 10 units SC BREAKFAST [facility] Last Admin: 12/06/17 13:04 Dose: 10 u Insulin Human Lispro (Humalog Kwikpen (Bkc)) 15 unit SQ LUNCH [facility] Last Admin: 12/06/17 13:03 Dose: 15 units Insulin Human Lispro (Humalog Kwikpen (Bkc)) 10 unit SQ DINNER [facility] Last Admin: 12/06/17 16:52 Dose: 10 u Insulin Human Lispro (Humalog Kwikpen (Bkc)) 10 unit SQ BREAKFAST [facility] Last Admin: 12/06/17 11:09 Dose: Not Given Insulin Human Lispro (Humalog Kwikpen (Bkc)) 0 unit SQ ACHS [facility] PRN Reason: Protocol Last Admin: 12/07/17 08:05 Dose: Not Given Ipratropium [place] (Atrovent Nasal [place] (G)) 2 spray NASAL BID [facility] Last Admin: 12/06/17 22:30 Dose: 2 spray Labetalol HCl (Trandate) 10 mg IV Q4H PRN PRN PRN Reason: SBP > 160, hold for HR < 60 Lisinopril (Zestril) 20 mg PO DAILY [facility] Last Admin: 12/06/17 11:45 Dose: 20 mg Loratadine (Claritin) 10 mg PO DAILY [facility] Last Admin: 12/06/17 11:45 Dose: 10 mg Magnesium Hydroxide (Milk Of Magnesia) 30 ml PO DAILY PRN PRN PRN Reason: Constipation Morphine Sulfate () 1 - 2 mg IV Q4H PRN PRN PRN Reason: Moderate Pain (pain scale 4-5) Last Admin: 12/07/17 06:47 Dose: 2 mg Nutritional Formula (Lactose Free) (Glucerna Shake) 120 ml PO 4X/DAY [facility] Last Admin: 12/06/17 22:32 Dose: 120 ml Nystatin (Mycostatin Powder) 1 applic TOPICAL BID [facility] PRN Reason: Protocol Last Admin: 12/06/17 22:31 Dose: 1 applicatio Ondansetron HCl (Zofran) 4 mg IV Q8H PRN PRN PRN Reason: NAUSEA Last Admin: 12/06/17 04:33 Dose: 4 mg Oxycodone HCl (Oxyir) 5 mg PO Q4H PRN PRN PRN Reason: Moderate Pain (pain scale 4-5) Last Admin: 12/06/17 16:46 Dose: 5 mg Pantoprazole Sodium (Protonix) 40 mg PO DAILY [facility] Last Admin: 12/06/17 11:45 Dose: 40 mg Potassium Chloride (K-Dur) 40 meq PO DAILY@0800 [facility] Last Admin: 12/06/17 11:45 Dose: 40 meq Sodium Chloride () 5 - 30 ml IV UD PRN PRN Reason: SALINE FLUSH Last Admin: 12/07/17 06:45 Dose: 10 ml Tizanidine HCl (Zanaflex) 2 mg PO TID [facility] Last Admin: 12/07/17 06:44 Dose: 2 mg Trazodone HCl (Desyrel) 50 mg PO QHS [facility] Last Admin: 12/06/17 22:30 Dose: 50 mg Warfarin Sodium (Coumadin (Pbkc)) 7.5 mg PO TuWeTh@1700 [facility] PRN Reason: Protocol Last Admin: 12/06/17 16:51 Dose: 7.5 mg Warfarin Sodium (Coumadin (Pbkc)) 10 mg PO SuMoFrSa@1700 [facility] Last Admin: 12/05/17 15:34 Dose: Not Given Medical Necessity - Tobacco Use Smoking Status: Never smoker Assessment/Plan All Active Problems (Last Reviewed 12/04/17 @ 01:53 by Sanjay Rhodes MD) Facial cellulitis (Acute) History of facial surgery (Resolved) History of tonsillectomy (Resolved) History of bilateral knee replacement (Resolved) History of cataract extraction (Resolved) History of syncope (Acute) Syncope (Acute) Acute asthmatic bronchitis (Resolved) Acute exacerbation of CHF (congestive heart failure) (Resolved) Atrial fibrillation with RVR (Resolved) Paroxysmal A-fib (Resolved) SOB (shortness of breath) (Resolved) 1. Facial cellulitis ongoing possible osteomyelitis +MRSA Blood cultures negative so far wound culture shows MRSA on cefazolin and vanc ID and PRS following. s/p I+D on 12/06 2. Chronic afib on Coreg and coumadin INR only 1.3 today despite taking coumadin. Resume coumadin when ok with PRS 3. DM2 fair control 4. DVT proph: SCDs for now. 5. Facial pain post-op. increase oxycodone to 5-10mg Q4 prn and morphine for breakthrough. Code Visit Inpatient E&M: 14140 Subs Hosp L2
--- NOTE | 2017-12-07 08:47 | PN_ITS ---
Patient Problems: Active and Suspected Problems (Last Reviewed 12/04/17 @ 01:53 by Sanjay Rhodes MD) Facial cellulitis (Acute) Subjective: Pain in chin helped only with morphine. Vitals/I&O's: Vital Signs Temp Pulse Resp BP Pulse Ox 36.6 C 80 16 113/70 98 12/07/17 03:12 12/07/17 03:12 12/07/17 03:12 12/07/17 03:12 12/07/17 06:40 Oxygen Flow Rate (L/min) 2 Oxygen Delivery Method Nasal Cannula Weight: 107.411 kg Body Mass Index (BMI) 41.9 Intake and Output for Last 24 Hours 12/05/17 12/06/17 12/07/17 23:59 23:59 23:59 Intake Total 1238 / 1239 1948 Balance 1238 / 1239 1948 General: Alert, - - groggy. afebrile. HEENT: Atraumatic, Normocephalic Oral: Moist Mucosa, No Gingival or Mucosal Lesions/ Ulcerations Neck: No Nodes, Thyroid Normal Size and Texture Lungs: Clear to auscultation, Normal air movement, No rhonchi, No wheeze Cardiovascular: Regular rate, Regular Rhythm, Normal S1, Normal S2, No murmurs Abdomen: Bowel Sounds Present, Soft, Non Tender, Non-Distended, No Hepato- splenomegaly Extremities: No edema, No Calf Tenderness Skin: No rashes, No breakdown Psych/Mental Status: Normal Affect, Appropriate Microbiology Past 72 Hours 12/06/17 09:15 Tissue - Bone Gram Stain - Final 12/06/17 09:15 Tissue - Other Gram Stain - Final 12/04/17 09:45 Wound - Face Gram Stain - Final 12/04/17 09:45 Wound - Face Wound Culture - Final Meth. resistant Staph. aureus 12/03/17 21:31 Blood Culture (Wb) - Left Wrist Blood Culture - Preliminary No growth in 48 hours. 12/03/17 21:15 Blood Culture (Wb) - No Site/Description Given Blood Culture - Preliminary No growth in 48 hours. Laboratory Results 12/06/17 10:19: Troponin I < 0.015 12/06/17 11:34: POC Glucose 139 H 12/06/17 16:45: POC Glucose 168 H 12/06/17 22:24: Vancomycin Trough 16.1 H 12/06/17 22:34: POC Glucose 152 H 12/07/17 05:22: WBC 7.7, RBC 3.30 L, Hgb 9.3 L, Hct 30.2 L, MCV 91.5, MCH 28.2, MCHC 30.8 L, RDW 15.3 H, RDW Differential 50.6 H, Plt Count 246, MPV 11.1 12/07/17 05:22: Sodium 140, Potassium 3.7, Chloride 97 L, Carbon Dioxide 35.0 H , Anion Gap 8, BUN 33 H, Creatinine 1.15 H, Estim Creat Clear Calc 38.19, Est GFR (MDRD) Af Amer 60, Est GFR (MDRD) Non-Af 50 L, BUN/Creatinine Ratio 28.7 H, Glucose 140 H, Calcium 8.2 L, Prealbumin 19.7 L 12/07/17 06:43: POC Glucose 131 H Current Medications Albuterol Sulfate (Ventolin Aerosols) 2.5 mg INHALATION Q4H PRN PRN PRN Reason: SOB wheezing Albuterol/Ipratropium (Duoneb) 3 ml INHALATION Q6HWA.RT [facility] Last Admin: 12/07/17 06:40 Dose: Not Given Amlodipine Besylate (Norvasc) 5 mg PO DAILY [facility] Last Admin: 12/06/17 11:45 Dose: 5 mg Aspirin (Aspirin, Baby) 81 mg PO DAILY@0800 [facility] Last Admin: 12/06/17 11:45 Dose: 81 mg Atorvastatin Calcium (Lipitor) 20 mg PO QHS [facility] Last Admin: 12/06/17 22:30 Dose: 20 mg Bisacodyl (Dulcolax) 5 mg PO DAILY PRN PRN PRN Reason: Constipation Calcium Carbonate (Os-Kirill 500) 500 mg PO BID [facility] Last Admin: 12/06/17 22:29 Dose: 500 mg Carvedilol (Coreg) 6.25 mg PO BID [facility] Last Admin: 12/06/17 22:30 Dose: 6.25 mg Cyanocobalamin (Vitamin B12) 2,000 mcg PO DAILY [facility] Last Admin: 12/06/17 11:45 Dose: 2,000 mcg Dextrose (D50w Syringe) 0 gm IV X1 PRN; Protocol PRN Reason: Hypoglycemia Diazepam (Valium) 10 mg PO TID [facility] Last Admin: 12/07/17 06:47 Dose: 10 mg Diphenoxylate HCl/Atropine (Lomotil) 1 tablet PO Q6H PRN PRN PRN Reason: Diarrhea Ferrous Sulfate (Ferrous Sulfate) 325 mg PO DAILY@0800 [facility] Last Admin: 12/06/17 11:45 Dose: 325 mg Flecainide Acetate (Tambocor) 150 mg PO Q12 [facility] Last Admin: 12/06/17 22:29 Dose: 150 mg Folic Acid (Folic Acid) 1 mg PO DAILY@0800 [facility] Last Admin: 12/06/17 11:45 Dose: 1 mg Furosemide (Lasix) 60 mg PO TID [facility] Last Admin: 12/07/17 06:44 Dose: 60 mg Gabapentin (Neurontin) 200 mg PO TID [facility] Last Admin: 12/07/17 06:44 Dose: 200 mg Glucagon () 1 mg IM .X1 PRN PRN Reason: Hypoglycemia Sodium Chloride () 250 mls @ 15 mls/hr IV .[id number] PRN PRN Reason: SALINE FLUSH Vancomycin HCl 1,250 mg/ (Sodium Chloride) 275 mls @ 167 mls/hr IV Q24H [facility] Last Admin: 12/06/17 22:30 Dose: 167 mls/hr Vancomycin IV Pharmacy to Dose (1 ea/ Sodium Chloride) 500 mls @ 250 mls/hr IV X1 PRN PRN Reason: Protocol Insulin Glargine (Lantus (Bkc)) 18 units SC QHS [facility] Last Admin: 12/06/17 22:35 Dose: 18 units Insulin Glargine (Lantus (Bkc)) 10 units SC BREAKFAST [facility] Last Admin: 12/06/17 13:04 Dose: 10 u Insulin Human Lispro (Humalog Kwikpen (Bkc)) 15 unit SQ LUNCH [facility] Last Admin: 12/06/17 13:03 Dose: 15 units Insulin Human Lispro (Humalog Kwikpen (Bkc)) 10 unit SQ DINNER [facility] Last Admin: 12/06/17 16:52 Dose: 10 u Insulin Human Lispro (Humalog Kwikpen (Bkc)) 10 unit SQ BREAKFAST [facility] Last Admin: 12/06/17 11:09 Dose: Not Given Insulin Human Lispro (Humalog Kwikpen (Bkc)) 0 unit SQ ACHS [facility] PRN Reason: Protocol Last Admin: 12/07/17 08:05 Dose: Not Given Ipratropium [place] (Atrovent Nasal [place] (G)) 2 spray NASAL BID [facility] Last Admin: 12/06/17 22:30 Dose: 2 spray Labetalol HCl (Trandate) 10 mg IV Q4H PRN PRN PRN Reason: SBP > 160, hold for HR < 60 Lisinopril (Zestril) 20 mg PO DAILY [facility] Last Admin: 12/06/17 11:45 Dose: 20 mg Loratadine (Claritin) 10 mg PO DAILY [facility] Last Admin: 12/06/17 11:45 Dose: 10 mg Magnesium Hydroxide (Milk Of Magnesia) 30 ml PO DAILY PRN PRN PRN Reason: Constipation Morphine Sulfate () 1 - 2 mg IV Q4H PRN PRN PRN Reason: Moderate Pain (pain scale 4-5) Last Admin: 12/07/17 06:47 Dose: 2 mg Nutritional Formula (Lactose Free) (Glucerna Shake) 120 ml PO 4X/DAY [facility] Last Admin: 12/06/17 22:32 Dose: 120 ml Nystatin (Mycostatin Powder) 1 applic TOPICAL BID [facility] PRN Reason: Protocol Last Admin: 12/06/17 22:31 Dose: 1 applicatio Ondansetron HCl (Zofran) 4 mg IV Q8H PRN PRN PRN Reason: NAUSEA Last Admin: 12/06/17 04:33 Dose: 4 mg Oxycodone HCl (Oxyir) 5 mg PO Q4H PRN PRN PRN Reason: Moderate Pain (pain scale 4-5) Last Admin: 12/06/17 16:46 Dose: 5 mg Pantoprazole Sodium (Protonix) 40 mg PO DAILY [facility] Last Admin: 12/06/17 11:45 Dose: 40 mg Potassium Chloride (K-Dur) 40 meq PO DAILY@0800 [facility] Last Admin: 12/06/17 11:45 Dose: 40 meq Sodium Chloride () 5 - 30 ml IV UD PRN PRN Reason: SALINE FLUSH Last Admin: 12/07/17 06:45 Dose: 10 ml Tizanidine HCl (Zanaflex) 2 mg PO TID [facility] Last Admin: 12/07/17 06:44 Dose: 2 mg Trazodone HCl (Desyrel) 50 mg PO QHS [facility] Last Admin: 12/06/17 22:30 Dose: 50 mg Warfarin Sodium (Coumadin (Pbkc)) 7.5 mg PO TuWeTh@1700 [facility] PRN Reason: Protocol Last Admin: 12/06/17 16:51 Dose: 7.5 mg Warfarin Sodium (Coumadin (Pbkc)) 10 mg PO SuMoFrSa@1700 [facility] Last Admin: 12/05/17 15:34 Dose: Not Given Medical Necessity - Tobacco Use Smoking Status: Never smoker Assessment/Plan All Active Problems (Last Reviewed 12/04/17 @ 01:53 by Sanjay Rhodes MD) Facial cellulitis (Acute) History of facial surgery (Resolved) History of tonsillectomy (Resolved) History of bilateral knee replacement (Resolved) History of cataract extraction (Resolved) History of syncope (Acute) Syncope (Acute) Acute asthmatic bronchitis (Resolved) Acute exacerbation of CHF (congestive heart failure) (Resolved) Atrial fibrillation with RVR (Resolved) Paroxysmal A-fib (Resolved) SOB (shortness of breath) (Resolved) 1. Facial cellulitis * ongoing * possible osteomyelitis * +MRSA * Blood cultures negative so far * wound culture shows MRSA * on cefazolin and vanc * ID and PRS following. * s/p I+D on 12/06 2. Chronic afib * on Coreg and coumadin * INR only 1.3 today despite taking coumadin. * Resume coumadin when ok with PRS 3. DM2 * fair control 4. DVT proph: SCDs for now. 5. Facial pain * post-op. * increase oxycodone to 5-10mg Q4 prn and morphine for breakthrough. Code Visit Inpatient E&M: 66656 Subs Hosp L2
[2017-12-07] MEDS: Aspirin 81 MG TAB.CHEW PO (09:32)
[2017-12-07] MEDS: Folic Acid 1 MG Tablet PO (09:33)
[2017-12-07] MEDS: Ferrous Sulfate 325 MG Tablet PO (09:33)
[2017-12-07] MEDS: Pantoprazole Sodium 40 MG Tablet PO (09:36)
[2017-12-07] MEDS: Loratadine 10 MG Tablet PO (09:36)
[2017-12-07] MEDS: Calcium (Elemental) 500 MG Tablet PO ×2 (09:36→21:58)
[2017-12-07] MEDS: Lisinopril 20 MG Tablet PO (09:36)
[2017-12-07] MEDS: Flecainide 150 MG Tablet PO ×2 (09:36→21:58)
[2017-12-07] MEDS: amLODIPine 5 MG Tablet PO (09:36)
[2017-12-07] MEDS: Cyanocobalamin 500 MCG Tablet 2000 MCG PO (09:37)
[2017-12-07] MEDS: Carvedilol 6.25 MG Tablet PO ×2 (09:37→21:57)
[2017-12-07] MEDS: Bisacodyl 5 MG Tablet PO (09:38)
[2017-12-07] MEDS: oxyCODONE 5 MG Tablet PO ×2 (09:39→22:51)
[2017-12-07] MEDS: Glucerna Shake 120 ML LIQUID PO ×4 (09:40→21:59)
[2017-12-07] MEDS: Nystatin Powder 15gm Bottle 1 APPLIC TOPICAL ×2 (09:43→21:59)
[2017-12-07 10:00] VITALS: BP 120/63; PULSE 68; RESP 14; TEMP 36.5; O2SAT 92
--- NOTE | 2017-12-07 10:09 | NURSING ---
wound photo: chin
[2017-12-07] MEDS: Insulin Lispro 100 UNIT/ML INSULN.PEN 10 UNIT SQ ×2 (10:14→17:50)
--- NOTE | 2017-12-07 10:21 | PCM.RX.CS ---
Consult Pharmacy has been consulted to manage selected antiobiotic: Vancomycin Type of Consult: Follow-up Suspected Infection: Skin/Soft tissue Prior Doses of Antibiotics Received/Current Regimen: Currently on vancomycin 1250mg IV q24h with the previous 2 doses given on 12/05/17 at 23:55 and 12/06/17 at 22:30. Labs: Sodium 140 mmol/L (136-145) 12/07/17 05:22 Potassium 3.7 mmol/L (3.5-5.1) 12/07/17 05:22 Chloride 97 mmol/L (98-107) L 12/07/17 05:22 Carbon Dioxide 35.0 mmol/L (21.0-32.0) H 12/07/17 05:22 Anion Gap 8 (5-15) 12/07/17 05:22 BUN 33 mg/dL (7-18) H 12/07/17 05:22 Creatinine 1.15 mg/dL (0.55-1.02) H 12/07/17 05:22 Est GFR (MDRD) Af Amer 60 mL/min (>60) 12/07/17 05:22 Est GFR (MDRD) Non-Af 50 mL/min (>60) L 12/07/17 05:22 BUN/Creatinine Ratio 28.7 RATIO (10-20) H 12/07/17 05:22 Glucose 140 mg/dL (74-106) H 12/07/17 05:22 Vancomycin Trough 16.1 ug/mL (5.0-15.0) H 12/06/17 22:24 Microbiology: Microbiology 12/06/17 09:15 Tissue - Bone Gram Stain - Final 12/06/17 09:15 Tissue - Bone Wound Culture - Preliminary No growth-Final to follow 12/06/17 09:15 Tissue - Other Gram Stain - Final 12/06/17 09:15 Tissue - Other Wound Culture - Preliminary 12/04/17 09:45 Wound - Face Gram Stain - Final 12/04/17 09:45 Wound - Face Wound Culture - Final Meth. resistant Staph. aureus 12/03/17 21:31 Blood Culture (Wb) - Left Wrist Blood Culture - Preliminary No growth in 48 hours. 12/03/17 21:15 Blood Culture (Wb) - No Site/Description Given Blood Culture - Preliminary No growth in 48 hours. Estimated Creatinine Clearance: 38 ml/min Goal Trough: 10-15 mcg/mL Pharmacy Plan for Drug Dosing: Pharmacy Service will continue to monitor and adjust dosing as required.
--- NOTE | 2017-12-07 10:29 | PCM.RX.CS ---
Consult Pharmacy has been consulted to manage selected antiobiotic: Vancomycin Type of Consult: Follow-up Suspected Infection: Skin/Soft tissue Prior Doses of Antibiotics Received/Current Regimen: Currently on vancomycin 1250mg IV q24h with the previous 2 doses given on 12/05/17 at 23:55 and 12/06/17 at 22:30. Labs: Sodium 140 mmol/L (136-145) 12/07/17 05:22 Potassium 3.7 mmol/L (3.5-5.1) 12/07/17 05:22 Chloride 97 mmol/L (98-107) L 12/07/17 05:22 Carbon Dioxide 35.0 mmol/L (21.0-32.0) H 12/07/17 05:22 Anion Gap 8 (5-15) 12/07/17 05:22 BUN 33 mg/dL (7-18) H 12/07/17 05:22 Creatinine 1.15 mg/dL (0.55-1.02) H 12/07/17 05:22 Est GFR (MDRD) Af Amer 60 mL/min (>60) 12/07/17 05:22 Est GFR (MDRD) Non-Af 50 mL/min (>60) L 12/07/17 05:22 BUN/Creatinine Ratio 28.7 RATIO (10-20) H 12/07/17 05:22 Glucose 140 mg/dL (74-106) H 12/07/17 05:22 Vancomycin Trough 16.1 ug/mL (5.0-15.0) H 12/06/17 22:24 Microbiology: Microbiology 12/06/17 09:15 Tissue - Bone Gram Stain - Final 12/06/17 09:15 Tissue - Bone Wound Culture - Preliminary No growth-Final to follow 12/06/17 09:15 Tissue - Other Gram Stain - Final 12/06/17 09:15 Tissue - Other Wound Culture - Preliminary 12/04/17 09:45 Wound - Face Gram Stain - Final 12/04/17 09:45 Wound - Face Wound Culture - Final Meth. resistant Staph. aureus 12/03/17 21:31 Blood Culture (Wb) - Left Wrist Blood Culture - Preliminary No growth in 48 hours. 12/03/17 21:15 Blood Culture (Wb) - No Site/Description Given Blood Culture - Preliminary No growth in 48 hours. Estimated Creatinine Clearance: 38 ml/min Goal Trough: 10-15 mcg/mL Pharmacy Plan for Drug Dosing: Trough obtained before last night's dose came back as 16.1. While this is slightly above goal range of 10-15, it was obtained a little early at 22 1/2 hours after the previous dose instead of closer to 24 hours. Therefore, also considering that the patient's renal function has improved since the initial vancomycin dose, the plan is to continue the current dose of 1250mg IV q24h and obtain another trough in a couple days. Pharmacy Service will continue to monitor and adjust dosing as required. Follow-Up Labs: Trough Vancomycin Labs to be done on [date and time ordered]: 12/09/17 22:30
--- NOTE | 2017-12-07 11:52 | PN.ID_ITS ---
Patient Problems: Active and Suspected Problems (Last Reviewed 12/04/17 @ 01:53 by Sanjay Rhodes MD) Facial cellulitis (Acute) Subjective: Feeling ok, chin is sore s/p OR yesterday. No fever, no n/v/d. - Physical Exam General: Alert, Cooperative, No apparent distress Lungs: Clear to auscultation, Normal air movement Cardiovascular: Regular rate, Regular Rhythm Abdomen: Soft, Non Tender, Non-Distended Skin: Ulcer/ Wound - chin bandaged Vital Signs Temp Pulse Resp BP Pulse Ox 97.7 F L 68 14 120/63 92 12/07/17 10:00 12/07/17 10:00 12/07/17 10:00 12/07/17 10:00 12/07/17 10:00 Oxygen Flow Rate (L/min) 2 Oxygen Delivery Method Room Air Weight: 107.411 kg Body Mass Index (BMI) 41.9 Intake and Output for Last 24 Hours 12/05/17 12/06/17 12/07/17 23:59 23:59 23:59 Intake Total 1239 / 1239 194 / 194 35 / 35 Balance 1239 / 1239 1950 / 1950 35 / 35 Microbiology Past 72 Hours 12/06/17 09:15 Gram Stain - Final Tissue - Bone Wound Culture - Preliminary No growth-Final to follow 12/06/17 09:15 Gram Stain - Final Tissue - Other Wound Culture - Preliminary 12/04/17 09:45 Gram Stain - Final Wound - Face Wound Culture - Final Meth. resistant Staph. aureus 12/03/17 21:31 Blood Culture - Preliminary Blood Culture (Wb) - Left Wrist No growth in 48 hours. 12/03/17 21:15 Blood Culture - Preliminary Blood Culture (Wb) - No Site/Description Given No growth in 48 hours. Laboratory Tests Past 24 Hrs 12/06/17 12/07/17 12/07/17 22:24 05:22 05:22 WBC 7.7 RBC 3.30 L Hgb 9.3 L Hct 30.2 L MCV 91.5 MCH 28.2 MCHC 30.8 L RDW 15.3 H RDW Differential 50.6 H Plt Count 246 MPV 11.1 Sodium 140 Potassium 3.7 Chloride 97 L Carbon Dioxide 35.0 H Anion Gap 8 BUN 33 H Creatinine 1.15 H Estim Creat Clear Calc 38.19 Est GFR (MDRD) Af Amer 60 Est GFR (MDRD) Non-Af 50 L BUN/Creatinine Ratio 28.7 H Glucose 140 H Calcium 8.2 L Prealbumin 19.7 L Vancomycin Trough 16.1 H POC Glucose 12/07/17 12/06/17 12/06/17 06:43 22:34 16:45 POC Glucose 131 H 152 H 168 H 12/06/17 11:34 POC Glucose 139 H Medical Necessity - Tobacco Use Smoking Status: Never smoker Route of nutrition/ use of supplements: [] Nutritional Intake: [] IV Site: [] Muro Catheter: [] - Assessment/Plan Antibiotics: [] Assessment/Plan: [] Active and Suspected Problems (Last Reviewed 12/04/17 @ 01:53 by Sanjay Rhodes MD) Facial cellulitis (Acute) MRSA chin abscess and cellulitis - taken to OR 12/[address] Soto. Surg cx pending. On iv vanc. Bone cx pending. May be candidate for po abx at discharge given susceptibilities of her MRSA. Drugs like doxy, linezolid, and bactrim have good bone penetration. Will follow, d/w senior case manager.
[2017-12-07] MEDS: Ipratropium/Albuterol Sulfate 3 ML AMPUL.NEB INHALATION (13:22)
[2017-12-07 13:23] VITALS: PULSE 84; RESP 16
[2017-12-07 14:25] VITALS: BP 108/72; PULSE 84; RESP 18; TEMP 37.3; O2SAT 92
[2017-12-07] MEDS: Insulin Lispro 100 UNIT/ML INSULN.PEN 15 UNIT SQ (14:29)
[2017-12-07] MEDS: Insulin Lispro 100 UNIT/ML INSULN.PEN SQ (14:30)
[2017-12-07 14:45] LABS: Bedside Glucose 164 mg/dL (70-110)
[2017-12-07 17:41] LABS: Bedside Glucose 147 mg/dL (70-110)
[2017-12-07] MEDS: Ondansetron 4 MG/2 ML Vial IV (17:49)
--- NOTE | 2017-12-07 21:23 | PN.SURG_ITS ---
Patient Problems: Active and Suspected Problems (Last Reviewed 12/04/17 @ 01:53 by Sanjay Rhodes MD) Facial cellulitis (Acute) Subjective: Postop #1 Patient complains of wound pain. Wound redressed with Silver dressing. - Physical Exam General: Alert, Oriented x3 HEENT: PERRLA, EOMI Oral: Moist Mucosa Neck: Supple Skin: Ulcer/ Wound - right chin wound is stable. No bleeding seen. Surrounding induration little less. Wound redressed with Aquacel Silver. Psych/Mental Status: Normal Affect, Appropriate Vital Signs Temp Pulse Resp BP Pulse Ox 99.2 F H 84 18 108/72 92 12/07/17 14:25 12/07/17 14:25 12/07/17 14:25 12/07/17 14:25 12/07/17 14:25 Oxygen Flow Rate (L/min) 2 Oxygen Delivery Method Room Air Weight: 236 lb 12.8 oz Body Mass Index (BMI) 41.9 Intake and Output for Last 24 Hours 12/05/17 12/06/17 12/07/17 23:59 23:59 23:59 Intake Total 1239 / 1239 1949 / 1949 947 / 947 Balance 1239 / 1239 1949 / 1949 947 / 947 Microbiology Past 72 Hours 12/06/17 09:15 Gram Stain - Final Tissue - Other Wound Culture - Preliminary 12/06/17 09:15 Gram Stain - Final Tissue - Bone Wound Culture - Preliminary No growth-Final to follow 12/04/17 09:45 Gram Stain - Final Wound - Face Wound Culture - Final Meth. resistant Staph. aureus 12/03/17 21:31 Blood Culture - Preliminary Blood Culture (Wb) - Left Wrist No growth in 48 hours. 12/03/17 21:15 Blood Culture - Preliminary Blood Culture (Wb) - No Site/Description Given No growth in 48 hours. Pathology - pending. Laboratory Tests Past 24 Hrs 12/06/17 12/07/17 12/07/17 22:24 05:22 05:22 WBC 7.7 RBC 3.30 L Hgb 9.3 L Hct 30.2 L MCV 91.5 MCH 28.2 MCHC 30.8 L RDW 15.3 H RDW Differential 50.6 H Plt Count 246 MPV 11.1 Sodium 140 Potassium 3.7 Chloride 97 L Carbon Dioxide 35.0 H Anion Gap 8 BUN 33 H Creatinine 1.15 H Estim Creat Clear Calc 38.19 Est GFR (MDRD) Af Amer 60 Est GFR (MDRD) Non-Af 50 L BUN/Creatinine Ratio 28.7 H Glucose 140 H Calcium 8.2 L Prealbumin 19.7 L Vancomycin Trough 16.1 H POC Glucose 12/07/17 12/07/17 12/07/17 17:34 14:29 06:43 POC Glucose 147 H 164 H 131 H 12/06/17 22:34 POC Glucose 152 H Medical Necessity - Tobacco Use Smoking Status: Never smoker Assessment/Plan All Active Problems (Last Reviewed 12/04/17 @ 01:53 by Sanjay Rhodes MD) Facial cellulitis (Acute) History of facial surgery (Resolved) History of tonsillectomy (Resolved) History of bilateral knee replacement (Resolved) History of cataract extraction (Resolved) History of syncope (Acute) Syncope (Acute) Acute asthmatic bronchitis (Resolved) Acute exacerbation of CHF (congestive heart failure) (Resolved) Atrial fibrillation with RVR (Resolved) Paroxysmal A-fib (Resolved) SOB (shortness of breath) (Resolved) 1. Right chin MRSA draining abscess. 2. MRSA. 3. Personal history of skin cancer. 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 5. Diabetes mellitus. 6. Possible osteomyelitis. 7. s/p surgical preparation right chin with incision and drainage and excisional debridement MRSA abscess (6 cm2) and partial ostectomy anterior mandible for osteomyelitis. Wound is stable. No bleeding seen. Redressed with Aquacel Silver. She has a lot of wound pain. Still needs IV analgesia. Continue Vancomycin. PICC line in place if IV antibiotics are needed at discharge. I anticipate increased metabolic demands from the infection and from the surgery. Her Prealbumin was 19.7. Encourage nutritional supplementation with protein to help the healing process. With the amount of pain she is having combined with complex wound care and IV antibiotics, she may need a short stay at an ECF. Patient is aware that if extensive cancer is present, then she would need to be evaluated at a tertiary center for Surgical Oncology treatment with further excision and complex soft tissue and/or bone reconstruction. She voices understanding and wishes to proceed. She states she would like to return to [facility] if more extensive cancer surgery is necessary.
[2017-12-07 21:43] VITALS: BP 114/78; PULSE 89; RESP 18; TEMP 37.1; O2SAT 92
[2017-12-07] MEDS: Ipratropium Bromide 0.06% NASAL SPRAY 2 SPRAY NASAL (21:58)
[2017-12-07] MEDS: traZODone 50 MG Tablet PO (21:58)
[2017-12-07] MEDS: Atorvastatin Calcium 20 MG Tablet PO (21:58)
[2017-12-07 23:01] LABS: Bedside Glucose 129 mg/dL (70-110)
[2017-12-08] VITALS (8 sets, daily range): BP systolic 100–144; BP diastolic 69–83; PULSE 78–120; RESP 15–18; TEMP 36.4–37.1; O2SAT 87–98
[2017-12-08] MEDS: Morphine 2 MG/ML Syringe IV ×3 (03:17→22:04)
[2017-12-08] MEDS: 0.9% NaCl Peripheral Flush Adult/Peds IV ×4 (03:18→10:58)
[2017-12-08 04:00] LABS: Eosinophils% 2.9 % (0-5); Hematocrit 29.7 % (37-47); Hemoglobin 9.1 g/dl (12.0-15.0); Lymphocyte % 17.3 % (19-41); Mean Corp Hgb Conc 30.6 g/gl (32-36); Mean Corpuscular Hgb 28.1 pg (27.0-32.0); Mean Corpuscular Volume 91.7 fL (81-99); Mean Platelet Vol. 10.8 fl (6.2-12.0); Monocyte% 6.4 % (0-10); Neutrophil % 72.8 % (47-70); Platelet Count 262 K/mm3 (150-450); RBC Distribution Width CV 15.3 % (11.6-14.6); RBC Distribution Width SD 51.5 fl (35.1-43.9); Red Blood Count 3.24 M/mm3 (4.2-5.4); White Blood Count 7.9 K/mm3 (4.4-11.0)
[2017-12-08 04:01] LABS: Absolute Lymphocyte Count 1.36 X10^3/ul (0.83-4.51); Absolute Neutrophil Count 5.7 X10^3/uL (2.0-7.7); Basophil# 0.02 X10^3/uL; Basophil% 0.3 % (0-1); Eosinophil# 0.23 X10^3/uL; Lymphocyte # 1.36 X10^3/ul (4.0); Neutrophil # 5.72 X10^3/uL (2.7-7.7)
[2017-12-08 04:14] LABS: POSITIVE COUNT NO; POSITIVE DIFFERENTIAL NO; POSITIVE MORPHOLOGY NO
[2017-12-08 04:25] LABS: Anion Gap 9 (5-15); BUN 34 mg/dL (7-18); BUN/Creat Ratio 27.4 RATIO (10-20); Calcium,Total 8.2 mg/dL (8.5-10.1); Chloride 97 mmol/L (98-107); Creatinine, Serum 1.24 mg/dL (0.55-1.02); EST Glomerular Filtration Rate 46 mL/min (>60); Est Glom Filt Rate - Afr Amer 55 mL/min (>60); Estimated Creatinine Clearance 35.42 ml/min; Glucose 132 mg/dL (74-106); Potassium 3.9 mmol/L (3.5-5.1); Sodium Level 140 mmol/L (136-145)
[2017-12-08] MEDS: tiZANidine HCl 2 MG Tablet PO ×3 (05:34→21:37)
[2017-12-08] MEDS: Furosemide 40 MG Tablet 60 MG PO ×3 (05:34→21:38)
[2017-12-08] MEDS: diazePAM 5 MG Tablet 10 MG PO ×2 (05:34→21:43)
[2017-12-08] MEDS: Gabapentin 100 MG Capsule 200 MG PO ×3 (05:34→21:43)
[2017-12-08] MEDS: Magnesium Hydroxide 30 ML UDC PO (05:40)
[2017-12-08 05:46] LABS: Bedside Glucose 143 mg/dL (70-110)
[2017-12-08] MEDS: Ipratropium/Albuterol Sulfate 3 ML AMPUL.NEB INHALATION ×2 (07:27→19:29)
[2017-12-08] MEDS: amLODIPine 5 MG Tablet PO (09:58)
[2017-12-08] MEDS: Cyanocobalamin 500 MCG Tablet 2000 MCG PO (09:58)
[2017-12-08] MEDS: Glucerna Shake 120 ML LIQUID PO ×4 (09:58→22:03)
[2017-12-08] MEDS: Lisinopril 20 MG Tablet PO (09:58)
[2017-12-08] MEDS: Ferrous Sulfate 325 MG Tablet PO (09:59)
[2017-12-08] MEDS: Carvedilol 6.25 MG Tablet PO ×2 (09:59→21:43)
[2017-12-08] MEDS: Aspirin 81 MG TAB.CHEW PO (09:59)
[2017-12-08] MEDS: Flecainide 150 MG Tablet PO ×2 (09:59→21:45)
[2017-12-08] MEDS: Folic Acid 1 MG Tablet PO (09:59)
[2017-12-08] MEDS: Loratadine 10 MG Tablet PO (09:59)
[2017-12-08] MEDS: Pantoprazole Sodium 40 MG Tablet PO (09:59)
[2017-12-08] MEDS: Calcium (Elemental) 500 MG Tablet PO ×2 (10:00→21:53)
[2017-12-08] MEDS: Ondansetron 4 MG/2 ML Vial IV (10:02)
[2017-12-08] MEDS: Insulin Lispro 100 UNIT/ML INSULN.PEN 10 UNIT SQ ×2 (10:19→17:55)
[2017-12-08] MEDS: Nystatin Powder 15gm Bottle 1 APPLIC TOPICAL ×2 (10:21→21:36)
[2017-12-08] MEDS: Ipratropium Bromide 0.06% NASAL SPRAY 2 SPRAY NASAL ×2 (10:22→21:46)
--- NOTE | 2017-12-08 10:29 | PCM.PN.HOSP ---
Patient Problems: Active and Suspected Problems (Last Reviewed 12/04/17 @ 01:53 by Sanjay Rhodes MD) Osteomyelitis of mandible (Acute) Abscess of chin (Acute) Methicillin resistant Staphylococcus aureus infection (Acute) Facial cellulitis (Acute) Subjective: Still with facial pain. Vitals/I&O's: Vital Signs Temp Pulse Resp BP Pulse Ox 36.8 C 102 H 18 112/76 97 12/08/17 09:10 12/08/17 09:10 12/08/17 09:10 12/08/17 09:10 12/08/17 09:10 Oxygen Flow Rate (L/min) 2 Oxygen Delivery Method Room Air Weight: 107.411 kg Body Mass Index (BMI) 41.9 Intake and Output for Last 24 Hours 12/06/17 12/07/17 12/08/17 23:59 23:59 23:59 Intake Total 1948 1067 / 1067 665 / 665 Balance 1948 1067 / 1067 665 / 665 General: Alert, Cooperative, No apparent distress HEENT: - - badage over chin--did not remove. Oral: Moist Mucosa, No Gingival or Mucosal Lesions/ Ulcerations Neck: No Nodes, Thyroid Normal Size and Texture Lungs: Clear to auscultation, Normal air movement, No rhonchi, No wheeze Cardiovascular: Regular rate, Regular Rhythm, Normal S1, Normal S2, No murmurs Abdomen: Bowel Sounds Present, Soft, Non Tender, Non-Distended, No Hepato-splenomegaly Extremities: No edema, No Calf Tenderness Psych/Mental Status: Normal Affect, Appropriate Microbiology Past 72 Hours 12/06/17 09:15 Tissue - Other Gram Stain - Final 12/06/17 09:15 Tissue - Other Wound Culture - Preliminary GNR Possible Haemophilus sp. 12/06/17 09:15 Tissue - Bone Gram Stain - Final 12/06/17 09:15 Tissue - Bone Wound Culture - Preliminary No growth-Final to follow 12/06/17 09:15 Tissue - Bone Anaerobic Culture - Preliminary No growth in 48 hours. 12/04/17 09:45 Wound - Face Gram Stain - Final 12/04/17 09:45 Wound - Face Wound Culture - Final Meth. resistant Staph. aureus 12/03/17 21:31 Blood Culture (Wb) - Left Wrist Blood Culture - Preliminary No growth in 48 hours. 12/03/17 21:15 Blood Culture (Wb) - No Site/Description Given Blood Culture - Preliminary No growth in 48 hours. Laboratory Results 12/07/17 14:29: POC Glucose 164 H 12/07/17 17:34: POC Glucose 147 H 12/07/17 21:42: POC Glucose 129 H 12/08/17 03:45: WBC 7.9, RBC 3.24 L, Hgb 9.1 L, Hct 29.7 L, MCV 91.7, MCH 28.1, MCHC 30.6 L, RDW 15.3 H, RDW Differential 51.5 H, Plt Count 262, MPV 10.8, Immature Gran % (Auto) 0.300, Neut % (Auto) 72.8 H, Lymph % (Auto) 17.3 L, [place] % (Auto) 6.4, Eos % (Auto) 2.9, Baso % (Auto) 0.3, Absolute Neuts (auto) 5.7, Absolute Lymphs (auto) 1.36, Total Counted Not Reportable 12/08/17 03:45: Sodium 140, Potassium 3.9, Chloride 97 L, Carbon Dioxide 34.0 H, Anion Gap 9, BUN 34 H, Creatinine 1.24 H, Estim Creat Clear Calc 35.42, Est GFR (MDRD) Af Amer 55 L, Est GFR (MDRD) Non-Af 46 L, BUN/Creatinine Ratio 27.4 H, Glucose 132 H, Calcium 8.2 L 12/08/17 05:32: POC Glucose 143 H Current Medications Albuterol Sulfate (Ventolin Aerosols) 2.5 mg INHALATION Q4H PRN PRN PRN Reason: SOB wheezing Albuterol/Ipratropium (Duoneb) 3 ml INHALATION Q6HWA.RT [facility] Last Admin: 12/08/17 07:27 Dose: 3 ml Amlodipine Besylate (Norvasc) 5 mg PO DAILY [facility] Last Admin: 12/08/17 09:58 Dose: 5 mg Aspirin (Aspirin, Baby) 81 mg PO DAILY@0800 [facility] Last Admin: 12/08/17 09:59 Dose: 81 mg Atorvastatin Calcium (Lipitor) 20 mg PO QHS [facility] Last Admin: 12/07/17 21:58 Dose: 20 mg Bisacodyl (Dulcolax) 5 mg PO DAILY PRN PRN PRN Reason: Constipation Last Admin: 12/07/17 09:38 Dose: 5 mg Calcium Carbonate (Os-Kirill 500) 500 mg PO BID [facility] Last Admin: 12/08/17 10:00 Dose: 500 mg Carvedilol (Coreg) 6.25 mg PO BID [facility] Last Admin: 12/08/17 09:59 Dose: 6.25 mg Cyanocobalamin (Vitamin B12) 2,000 mcg PO DAILY [facility] Last Admin: 12/08/17 09:58 Dose: 2,000 mcg Dextrose (D50w Syringe) 0 gm IV X1 PRN; Protocol PRN Reason: Hypoglycemia Diazepam (Valium) 10 mg PO TID [facility] Last Admin: 12/08/17 05:34 Dose: 10 mg Diphenoxylate HCl/Atropine (Lomotil) 1 tablet PO Q6H PRN PRN PRN Reason: Diarrhea Ferrous Sulfate (Ferrous Sulfate) 325 mg PO DAILY@0800 [facility] Last Admin: 12/08/17 09:59 Dose: 325 mg Flecainide Acetate (Tambocor) 150 mg PO Q12 [facility] Last Admin: 12/08/17 09:59 Dose: 150 mg Folic Acid (Folic Acid) 1 mg PO DAILY@0800 [facility] Last Admin: 12/08/17 09:59 Dose: 1 mg Furosemide (Lasix) 60 mg PO TID [facility] Last Admin: 12/08/17 05:34 Dose: 60 mg Gabapentin (Neurontin) 200 mg PO TID [facility] Last Admin: 12/08/17 05:34 Dose: 200 mg Glucagon () 1 mg IM .X1 PRN PRN Reason: Hypoglycemia Vancomycin HCl 1,250 mg/ (Sodium Chloride) 275 mls @ 167 mls/hr IV Q24H [facility] Last Admin: 12/07/17 22:45 Dose: 167 mls/hr Vancomycin IV Pharmacy to Dose (1 ea/ Sodium Chloride) 500 mls @ 250 mls/hr IV X1 PRN PRN Reason: Protocol Ceftriaxone Sodium 2 gm/ (Dextrose) 50 mls @ 100 mls/hr IV Q24 [facility] Insulin Glargine (Lantus (Bkc)) 18 units SC QHS [facility] Last Admin: 12/07/17 22:04 Dose: 18 units Insulin Glargine (Lantus (Bkc)) 10 units SC BREAKFAST [facility] Last Admin: 12/08/17 10:24 Dose: 10 u Insulin Human Lispro (Humalog Kwikpen (Bkc)) 15 unit SQ LUNCH [facility] Last Admin: 12/07/17 14:29 Dose: 15 units Insulin Human Lispro (Humalog Kwikpen (Bkc)) 10 unit SQ DINNER [facility] Last Admin: 12/07/17 17:50 Dose: 10 u Insulin Human Lispro (Humalog Kwikpen (Bkc)) 10 unit SQ BREAKFAST [facility] Last Admin: 12/08/17 10:19 Dose: 10 u Insulin Human Lispro (Humalog Kwikpen (Bkc)) 0 unit SQ ACHS [facility] PRN Reason: Protocol Last Admin: 12/08/17 05:35 Dose: Not Given Ipratropium [place] (Atrovent Nasal [place] (G)) 2 spray NASAL BID [facility] Last Admin: 12/08/17 10:22 Dose: 2 spray Labetalol HCl (Trandate) 10 mg IV Q4H PRN PRN PRN Reason: SBP > 160, hold for HR < 60 Lisinopril (Zestril) 20 mg PO DAILY [facility] Last Admin: 12/08/17 09:58 Dose: 20 mg Loratadine (Claritin) 10 mg PO DAILY [facility] Last Admin: 12/08/17 09:59 Dose: 10 mg Magnesium Hydroxide (Milk Of Magnesia) 30 ml PO DAILY PRN PRN PRN Reason: Constipation Last Admin: 12/08/17 05:40 Dose: 30 ml Morphine Sulfate () 1 - 2 mg IV Q4H PRN PRN PRN Reason: BREAKTHROUGH PAIN (>4/10) Last Admin: 12/08/17 10:00 Dose: 2 mg Nutritional Formula (Lactose Free) (Glucerna Shake) 120 ml PO 4X/DAY [facility] Last Admin: 12/08/17 09:58 Dose: 120 ml Nystatin (Mycostatin Powder) 1 applic TOPICAL BID [facility] PRN Reason: Protocol Last Admin: 12/08/17 10:21 Dose: 1 applicatio Ondansetron HCl (Zofran) 4 mg IV Q8H PRN PRN PRN Reason: NAUSEA Last Admin: 12/08/17 10:02 Dose: 4 mg Oxycodone HCl (Oxyir) 5 - 10 mg PO Q4H PRN PRN PRN Reason: Moderate Pain (pain scale 4-5) Last Admin: 12/07/17 22:51 Dose: 5 mg Pantoprazole Sodium (Protonix) 40 mg PO DAILY [facility] Last Admin: 12/08/17 09:59 Dose: 40 mg Potassium Chloride (K-Dur) 40 meq PO DAILY@0800 [facility] Last Admin: 12/08/17 09:59 Dose: 40 meq Sodium Chloride () 5 - 30 ml IV UD PRN PRN Reason: SALINE FLUSH Last Admin: 12/08/17 10:00 Dose: 10 ml Tizanidine HCl (Zanaflex) 2 mg PO TID [facility] Last Admin: 12/08/17 05:34 Dose: 2 mg Trazodone HCl (Desyrel) 50 mg PO QHS [facility] Last Admin: 12/07/17 21:58 Dose: 50 mg Warfarin Sodium (Coumadin (Pbkc)) 7.5 mg PO TuWeTh@1700 [facility] PRN Reason: Protocol Last Admin: 12/07/17 17:44 Dose: 7.5 mg Warfarin Sodium (Coumadin (Pbkc)) 10 mg PO SuMoFrSa@1700 [facility] Last Admin: 12/05/17 15:34 Dose: Not Given Medical Necessity - Tobacco Use Smoking Status: Never smoker Assessment/Plan All Active Problems (Last Reviewed 12/04/17 @ 01:53 by Sanjay Rhodes MD) Osteomyelitis of mandible (Acute) Abscess of chin (Acute) Methicillin resistant Staphylococcus aureus infection (Acute) Facial cellulitis (Acute) History of facial surgery (Resolved) History of tonsillectomy (Resolved) History of bilateral knee replacement (Resolved) History of cataract extraction (Resolved) History of syncope (Acute) Syncope (Acute) Acute asthmatic bronchitis (Resolved) Acute exacerbation of CHF (congestive heart failure) (Resolved) Atrial fibrillation with RVR (Resolved) Paroxysmal A-fib (Resolved) SOB (shortness of breath) (Resolved) 1. Facial cellulitis ongoing possible osteomyelitis +MRSA Blood cultures negative so far wound culture shows MRSA tissue culture growing GNR (possible Haemohilus) on CTX and vanc ID and PRS following. s/p I+D on 12/06 2. Chronic afib on Coreg and coumadin INR only 1.3 today despite taking coumadin. Resume coumadin when ok with PRS 3. DM2 fair control 4. DVT proph: SCDs for now. 5. Facial pain post-op. increase oxycodone to 5-10mg Q4 prn and morphine for breakthrough. Code Visit Inpatient E&M: 81346 Subs Hosp L2
--- NOTE | 2017-12-08 10:33 | PN_ITS ---
Patient Problems: Active and Suspected Problems (Last Reviewed 12/04/17 @ 01:53 by Sanjay Rhodes MD) Osteomyelitis of mandible (Acute) Abscess of chin (Acute) Methicillin resistant Staphylococcus aureus infection (Acute) Facial cellulitis (Acute) Subjective: Still with facial pain. Vitals/I&O's: Vital Signs Temp Pulse Resp BP Pulse Ox 36.8 C 102 H 18 112/76 97 12/08/17 09:10 12/08/17 09:10 12/08/17 09:10 12/08/17 09:10 12/08/17 09:10 Oxygen Flow Rate (L/min) 2 Oxygen Delivery Method Room Air Weight: 107.411 kg Body Mass Index (BMI) 41.9 Intake and Output for Last 24 Hours 12/06/17 12/07/17 12/08/17 23:59 23:59 23:59 Intake Total 1948 1067 / 1067 665 / 665 Balance 1948 1067 / 1067 665 / 665 General: Alert, Cooperative, No apparent distress HEENT: - - badage over chin--did not remove. Oral: Moist Mucosa, No Gingival or Mucosal Lesions/ Ulcerations Neck: No Nodes, Thyroid Normal Size and Texture Lungs: Clear to auscultation, Normal air movement, No rhonchi, No wheeze Cardiovascular: Regular rate, Regular Rhythm, Normal S1, Normal S2, No murmurs Abdomen: Bowel Sounds Present, Soft, Non Tender, Non-Distended, No Hepato- splenomegaly Extremities: No edema, No Calf Tenderness Psych/Mental Status: Normal Affect, Appropriate Microbiology Past 72 Hours 12/06/17 09:15 Tissue - Other Gram Stain - Final 12/06/17 09:15 Tissue - Other Wound Culture - Preliminary GNR Possible Haemophilus sp. 12/06/17 09:15 Tissue - Bone Gram Stain - Final 12/06/17 09:15 Tissue - Bone Wound Culture - Preliminary No growth-Final to follow 12/06/17 09:15 Tissue - Bone Anaerobic Culture - Preliminary No growth in 48 hours. 12/04/17 09:45 Wound - Face Gram Stain - Final 12/04/17 09:45 Wound - Face Wound Culture - Final Meth. resistant Staph. aureus 12/03/17 21:31 Blood Culture (Wb) - Left Wrist Blood Culture - Preliminary No growth in 48 hours. 12/03/17 21:15 Blood Culture (Wb) - No Site/Description Given Blood Culture - Preliminary No growth in 48 hours. Laboratory Results 12/07/17 14:29: POC Glucose 164 H 12/07/17 17:34: POC Glucose 147 H 12/07/17 21:42: POC Glucose 129 H 12/08/17 03:45: WBC 7.9, RBC 3.24 L, Hgb 9.1 L, Hct 29.7 L, MCV 91.7, MCH 28.1, MCHC 30.6 L, RDW 15.3 H, RDW Differential 51.5 H, Plt Count 262, MPV 10.8, Immature Gran % (Auto) 0.300, Neut % (Auto) 72.8 H, Lymph % (Auto) 17.3 L, [place] % (Auto) 6.4, Eos % (Auto) 2.9, Baso % (Auto) 0.3, Absolute Neuts (auto) 5.7, Absolute Lymphs (auto) 1.36, Total Counted Not Reportable 12/08/17 03:45: Sodium 140, Potassium 3.9, Chloride 97 L, Carbon Dioxide 34.0 H , Anion Gap 9, BUN 34 H, Creatinine 1.24 H, Estim Creat Clear Calc 35.42, Est GFR (MDRD) Af Amer 55 L, Est GFR (MDRD) Non-Af 46 L, BUN/Creatinine Ratio 27.4 H , Glucose 132 H, Calcium 8.2 L 12/08/17 05:32: POC Glucose 143 H Current Medications Albuterol Sulfate (Ventolin Aerosols) 2.5 mg INHALATION Q4H PRN PRN PRN Reason: SOB wheezing Albuterol/Ipratropium (Duoneb) 3 ml INHALATION Q6HWA.RT [facility] Last Admin: 12/08/17 07:27 Dose: 3 ml Amlodipine Besylate (Norvasc) 5 mg PO DAILY [facility] Last Admin: 12/08/17 09:58 Dose: 5 mg Aspirin (Aspirin, Baby) 81 mg PO DAILY@0800 [facility] Last Admin: 12/08/17 09:59 Dose: 81 mg Atorvastatin Calcium (Lipitor) 20 mg PO QHS [facility] Last Admin: 12/07/17 21:58 Dose: 20 mg Bisacodyl (Dulcolax) 5 mg PO DAILY PRN PRN PRN Reason: Constipation Last Admin: 12/07/17 09:38 Dose: 5 mg Calcium Carbonate (Os-Kirill 500) 500 mg PO BID [facility] Last Admin: 12/08/17 10:00 Dose: 500 mg Carvedilol (Coreg) 6.25 mg PO BID [facility] Last Admin: 12/08/17 09:59 Dose: 6.25 mg Cyanocobalamin (Vitamin B12) 2,000 mcg PO DAILY [facility] Last Admin: 12/08/17 09:58 Dose: 2,000 mcg Dextrose (D50w Syringe) 0 gm IV X1 PRN; Protocol PRN Reason: Hypoglycemia Diazepam (Valium) 10 mg PO TID [facility] Last Admin: 12/08/17 05:34 Dose: 10 mg Diphenoxylate HCl/Atropine (Lomotil) 1 tablet PO Q6H PRN PRN PRN Reason: Diarrhea Ferrous Sulfate (Ferrous Sulfate) 325 mg PO DAILY@0800 [facility] Last Admin: 12/08/17 09:59 Dose: 325 mg Flecainide Acetate (Tambocor) 150 mg PO Q12 [facility] Last Admin: 12/08/17 09:59 Dose: 150 mg Folic Acid (Folic Acid) 1 mg PO DAILY@0800 [facility] Last Admin: 12/08/17 09:59 Dose: 1 mg Furosemide (Lasix) 60 mg PO TID [facility] Last Admin: 12/08/17 05:34 Dose: 60 mg Gabapentin (Neurontin) 200 mg PO TID [facility] Last Admin: 12/08/17 05:34 Dose: 200 mg Glucagon () 1 mg IM .X1 PRN PRN Reason: Hypoglycemia Vancomycin HCl 1,250 mg/ (Sodium Chloride) 275 mls @ 167 mls/hr IV Q24H [facility] Last Admin: 12/07/17 22:45 Dose: 167 mls/hr Vancomycin IV Pharmacy to Dose (1 ea/ Sodium Chloride) 500 mls @ 250 mls/hr IV X1 PRN PRN Reason: Protocol Ceftriaxone Sodium 2 gm/ (Dextrose) 50 mls @ 100 mls/hr IV Q24 [facility] Insulin Glargine (Lantus (Bkc)) 18 units SC QHS [facility] Last Admin: 12/07/17 22:04 Dose: 18 units Insulin Glargine (Lantus (Bkc)) 10 units SC BREAKFAST [facility] Last Admin: 12/08/17 10:24 Dose: 10 u Insulin Human Lispro (Humalog Kwikpen (Bkc)) 15 unit SQ LUNCH [facility] Last Admin: 12/07/17 14:29 Dose: 15 units Insulin Human Lispro (Humalog Kwikpen (Bkc)) 10 unit SQ DINNER [facility] Last Admin: 12/07/17 17:50 Dose: 10 u Insulin Human Lispro (Humalog Kwikpen (Bkc)) 10 unit SQ BREAKFAST [facility] Last Admin: 12/08/17 10:19 Dose: 10 u Insulin Human Lispro (Humalog Kwikpen (Bkc)) 0 unit SQ ACHS [facility] PRN Reason: Protocol Last Admin: 12/08/17 05:35 Dose: Not Given Ipratropium [place] (Atrovent Nasal [place] (G)) 2 spray NASAL BID [facility] Last Admin: 12/08/17 10:22 Dose: 2 spray Labetalol HCl (Trandate) 10 mg IV Q4H PRN PRN PRN Reason: SBP > 160, hold for HR < 60 Lisinopril (Zestril) 20 mg PO DAILY [facility] Last Admin: 12/08/17 09:58 Dose: 20 mg Loratadine (Claritin) 10 mg PO DAILY [facility] Last Admin: 12/08/17 09:59 Dose: 10 mg Magnesium Hydroxide (Milk Of Magnesia) 30 ml PO DAILY PRN PRN PRN Reason: Constipation Last Admin: 12/08/17 05:40 Dose: 30 ml Morphine Sulfate () 1 - 2 mg IV Q4H PRN PRN PRN Reason: BREAKTHROUGH PAIN (>4/10) Last Admin: 12/08/17 10:00 Dose: 2 mg Nutritional Formula (Lactose Free) (Glucerna Shake) 120 ml PO 4X/DAY [facility] Last Admin: 12/08/17 09:58 Dose: 120 ml Nystatin (Mycostatin Powder) 1 applic TOPICAL BID [facility] PRN Reason: Protocol Last Admin: 12/08/17 10:21 Dose: 1 applicatio Ondansetron HCl (Zofran) 4 mg IV Q8H PRN PRN PRN Reason: NAUSEA Last Admin: 12/08/17 10:02 Dose: 4 mg Oxycodone HCl (Oxyir) 5 - 10 mg PO Q4H PRN PRN PRN Reason: Moderate Pain (pain scale 4-5) Last Admin: 12/07/17 22:51 Dose: 5 mg Pantoprazole Sodium (Protonix) 40 mg PO DAILY [facility] Last Admin: 12/08/17 09:59 Dose: 40 mg Potassium Chloride (K-Dur) 40 meq PO DAILY@0800 [facility] Last Admin: 12/08/17 09:59 Dose: 40 meq Sodium Chloride () 5 - 30 ml IV UD PRN PRN Reason: SALINE FLUSH Last Admin: 12/08/17 10:00 Dose: 10 ml Tizanidine HCl (Zanaflex) 2 mg PO TID [facility] Last Admin: 12/08/17 05:34 Dose: 2 mg Trazodone HCl (Desyrel) 50 mg PO QHS [facility] Last Admin: 12/07/17 21:58 Dose: 50 mg Warfarin Sodium (Coumadin (Pbkc)) 7.5 mg PO TuWeTh@1700 [facility] PRN Reason: Protocol Last Admin: 12/07/17 17:44 Dose: 7.5 mg Warfarin Sodium (Coumadin (Pbkc)) 10 mg PO SuMoFrSa@1700 [facility] Last Admin: 12/05/17 15:34 Dose: Not Given Medical Necessity - Tobacco Use Smoking Status: Never smoker Assessment/Plan All Active Problems (Last Reviewed 12/04/17 @ 01:53 by Sanjay Rhodes MD) Osteomyelitis of mandible (Acute) Abscess of chin (Acute) Methicillin resistant Staphylococcus aureus infection (Acute) Facial cellulitis (Acute) History of facial surgery (Resolved) History of tonsillectomy (Resolved) History of bilateral knee replacement (Resolved) History of cataract extraction (Resolved) History of syncope (Acute) Syncope (Acute) Acute asthmatic bronchitis (Resolved) Acute exacerbation of CHF (congestive heart failure) (Resolved) Atrial fibrillation with RVR (Resolved) Paroxysmal A-fib (Resolved) SOB (shortness of breath) (Resolved) 1. Facial cellulitis * ongoing * possible osteomyelitis * +MRSA * Blood cultures negative so far * wound culture shows MRSA * tissue culture growing GNR (possible Haemohilus) * on CTX and vanc * ID and PRS following. * s/p I+D on 12/06 2. Chronic afib * on Coreg and coumadin * INR only 1.3 today despite taking coumadin. * Resume coumadin when ok with PRS 3. DM2 * fair control 4. DVT proph: SCDs for now. 5. Facial pain * post-op. * increase oxycodone to 5-10mg Q4 prn and morphine for breakthrough. Code Visit Inpatient E&M: 76610 Subs Hosp L2
[2017-12-08 11:15] LABS: International Normalized Ratio 1.3; Prothrombin Time (Protime)PT. 15.7 SECONDS (11.7-14.9)
--- NOTE | 2017-12-08 11:19 | PCM.PN.ID ---
Patient Problems: Active and Suspected Problems (Last Reviewed 12/04/17 @ 01:53 by Sanjay Rhodes MD) Osteomyelitis of mandible (Acute) Abscess of chin (Acute) Methicillin resistant Staphylococcus aureus infection (Acute) Facial cellulitis (Acute) Subjective: Not feeling much better. Able to eat. No fever. - Physical Exam General: Alert, Cooperative, No apparent distress Lungs: Clear to auscultation, Normal air movement Cardiovascular: Regular rate, Regular Rhythm Abdomen: Soft, Non Tender, Non-Distended Skin: Ulcer/ Wound - chin bandaged, some swelling. Reviewed photo. Vital Signs Temp Pulse Resp BP Pulse Ox 98.2 F 102 H 18 112/76 97 12/08/17 09:10 12/08/17 09:10 12/08/17 09:10 12/08/17 09:10 12/08/17 09:10 Oxygen Flow Rate (L/min) 2 Oxygen Delivery Method Room Air Weight: 107.411 kg Body Mass Index (BMI) 41.9 Intake and Output for Last 24 Hours 12/06/17 12/07/17 12/08/17 23:59 23:59 23:59 Intake Total 1948 1067 / 1067 665 / 665 Balance 1948 1067 / 1067 665 / 665 Microbiology Past 72 Hours 12/06/17 09:15 Gram Stain - Final Tissue - Other Wound Culture - Preliminary GNR Possible Haemophilus sp. 12/06/17 09:15 Gram Stain - Final Tissue - Bone Wound Culture - Preliminary No growth-Final to follow Anaerobic Culture - Preliminary No growth in 48 hours. 12/04/17 09:45 Gram Stain - Final Wound - Face Wound Culture - Final Meth. resistant Staph. aureus 12/03/17 21:31 Blood Culture - Preliminary Blood Culture (Wb) - Left Wrist No growth in 48 hours. 12/03/17 21:15 Blood Culture - Preliminary Blood Culture (Wb) - No Site/Description Given No growth in 48 hours. Laboratory Tests Past 24 Hrs 12/08/17 12/08/17 12/08/17 03:45 03:45 10:55 WBC 7.9 RBC 3.24 L Hgb 9.1 L Hct 29.7 L MCV 91.7 MCH 28.1 MCHC 30.6 L RDW 15.3 H RDW Differential 51.5 H Plt Count 262 MPV 10.8 Immature Gran % (Auto) 0.300 Neut % (Auto) 72.8 H Lymph % (Auto) 17.3 L [place] % (Auto) 6.4 Eos % (Auto) 2.9 Baso % (Auto) 0.3 Absolute Neuts (auto) 5.7 Absolute Lymphs (auto) 1.36 Total Counted Not Reportable PT Pending INR Pending Sodium 140 Potassium 3.9 Chloride 97 L Carbon Dioxide 34.0 H Anion Gap 9 BUN 34 H Creatinine 1.24 H Estim Creat Clear Calc 35.42 Est GFR (MDRD) Af Amer 55 L Est GFR (MDRD) Non-Af 46 L BUN/Creatinine Ratio 27.4 H Glucose 132 H Calcium 8.2 L POC Glucose 12/08/17 12/07/17 12/07/17 05:32 21:42 17:34 POC Glucose 143 H 129 H 147 H 12/07/17 14:29 POC Glucose 164 H Medical Necessity - Tobacco Use Smoking Status: Never smoker Route of nutrition/ use of supplements: [] Nutritional Intake: [] IV Site: [] Muro Catheter: [] - Assessment/Plan Antibiotics: [] Assessment/Plan: [] Active and Suspected Problems (Last Reviewed 12/04/17 @ 01:53 by Sanjay Rhodes MD) Facial cellulitis (Acute) MRSA chin abscess and cellulitis - taken to OR 12/[address] Soto. Surg cx now with haemophilis. On iv vanc; will add ceftriaxone for now. Bone cx pending. May be candidate for po abx at discharge given susceptibilities of her MRSA. Will follow, d/w rn case mgr.
--- NOTE | 2017-12-08 11:30 | CASEMGMT ---
SW spoke w/pt in the room in regard to discharge plan. SW reviewed options, including SNF vs. home with home health. Pt would like to go home. SW explained we can set up home health to assist w/dressing changes and w/IV antibiotics should they be needed. SW inquired if family would also be able to assist since home health cannot go out daily. She states that her step son and his girlfriend can assist pt. Pt has not had home health in the past, has no preference for agency. Pt states she will be home bound when she goes home. SW explained will make a referral to [facility] and CM/SW will continue to follow. SW called [facility], made a referral to [place]. She will look into this, however, the soonest they can see pt would be Tuesday or Tuesday. She will let SW know once she looks into it further. It is not clear when pt will be ready for discharge, so if pt is ready before this SW or CM will make another referral to a different home health care agency. SW/CM will continue to follow. ALESIA Brizuela, INVESTMENT CONSULTANT
[2017-12-08 12:51] LABS: Bedside Glucose 210 mg/dL (70-110)
[2017-12-08] MEDS: oxyCODONE 5 MG Tablet PO (13:18)
[2017-12-08] MEDS: Insulin Lispro 100 UNIT/ML INSULN.PEN 15 UNIT SQ (13:20)
[2017-12-08] MEDS: Insulin Lispro 100 UNIT/ML INSULN.PEN SQ ×3 (13:25→21:54)
--- NOTE | 2017-12-08 14:40 | NURSING ---
Addendum entered by Marilee Khan 12/08/17 16:20: Pt denies hitting her head. Pt was assisted from the floor to the toilet with the assist of 5 staff. Pt was instructed not to get out of bed without assistance. Original Note: After pulling the call light, Viri SANTIAGO found pt sitting in the bathroom floor. Pt stated to this nurse that she missed the toilet while trying to sit. Pt also said that her knees keep giving out. Pt denies pain. No new injuries noted. Vitals & glucometer taken due to diaphoresis. Non-slip socks on pt's feet. Pt given a walker and changed to a 1 assist with bed alarm on. Yellow band and sign in hallway placed.
[2017-12-08 15:01] LABS: Bedside Glucose 160 mg/dL (70-110)
--- NOTE | 2017-12-08 16:49 | NURSING ---
Addendum entered by Talita Frias 12/08/17 18:59: aquacel remained in place t/o this shift. gauze packing had to be redressed x3 this shift due to food and liquid getting into dressing/ tape after dressing was changed this AM by Raquel, wound RN. Original Note: Addendum entered by Talita Frias 12/08/17 17:01: This RN went to speak with patient regarding this and son was already at bedside sleeping in recliner. Patient resting with eyes closed as well. Original Note: Pt. notified this RN that she recently allowed her step son and [id number] to move in with her because they were down on their luck and she had children. She states that the children were unruly and that her avalos suddenly when meth was dropped on her floor. She states that her step-son and [id number] had friends over and that something was dropped on the floor and that her step son stated that it was meth. She states that she believes that her dog must have eaten it and then because he was very healthy 9 year old avalos. 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 Around 1630- step-son and [id number]-[id number] came to nurses' station and asked if patient could have someone stay overnight with her. notified that she could. Then step-son asked if patient could order a meal for him. States he is an invalid and can't afford a meal. Notified that there is soup in the family refreshment center but that meals can be ordered for $6.00. Understanding verbalized.
[2017-12-08 17:35] LABS: Bedside Glucose 160 mg/dL (70-110)
[2017-12-08] MEDS: traZODone 50 MG Tablet PO (21:43)
[2017-12-08] MEDS: Atorvastatin Calcium 20 MG Tablet PO (21:43)
[2017-12-08 23:46] LABS: Bedside Glucose 234 mg/dL (70-110)
[2017-12-09] VITALS (8 sets, daily range): BP systolic 108–153; BP diastolic 71–89; PULSE 62–121; RESP 16–20; TEMP 36.4–36.8; O2SAT 93–99
[2017-12-09 05:28] LABS: Absolute Lymphocyte Count 1.15 X10^3/ul (0.83-4.51); Absolute Neutrophil Count 4.9 X10^3/uL (2.0-7.7); Basophil# 0.03 X10^3/uL; Basophil% 0.4 % (0-1); Eosinophil# 0.24 X10^3/uL; Eosinophils% 3.5 % (0-5); Hematocrit 29.9 % (37-47); Hemoglobin 9.1 g/dl (12.0-15.0); Lymphocyte # 1.15 X10^3/ul (4.0); Lymphocyte % 16.7 % (19-41); Mean Corp Hgb Conc 30.4 g/gl (32-36); Mean Corpuscular Hgb 28.1 pg (27.0-32.0); Mean Corpuscular Volume 92.3 fL (81-99); Mean Platelet Vol. 10.7 fl (6.2-12.0); Monocyte# 0.52 X10^3/uL; Monocyte% 7.6 % (0-10); Neutrophil # 4.93 X10^3/uL (2.7-7.7); Neutrophil % 71.7 % (47-70); Platelet Count 250 K/mm3 (150-450); RBC Distribution Width CV 15.4 % (11.6-14.6); RBC Distribution Width SD 51.9 fl (35.1-43.9); Red Blood Count 3.24 M/mm3 (4.2-5.4); White Blood Count 6.9 K/mm3 (4.4-11.0)
[2017-12-09 05:29] LABS: POSITIVE COUNT NO; POSITIVE DIFFERENTIAL NO; POSITIVE MORPHOLOGY NO
[2017-12-09 05:35] LABS: International Normalized Ratio 1.3; Prothrombin Time (Protime)PT. 16.2 SECONDS (11.7-14.9)
[2017-12-09 05:50] LABS: Anion Gap 7 (5-15); BUN 37 mg/dL (7-18); BUN/Creat Ratio 31.4 RATIO (10-20); Calcium,Total 8.5 mg/dL (8.5-10.1); Chloride 99 mmol/L (98-107); Creatinine, Serum 1.18 mg/dL (0.55-1.02); EST Glomerular Filtration Rate 48 mL/min (>60); Est Glom Filt Rate - Afr Amer 58 mL/min (>60); Estimated Creatinine Clearance 37.22 ml/min; Glucose 153 mg/dL (74-106); Potassium 4.2 mmol/L (3.5-5.1); Sodium Level 141 mmol/L (136-145)
[2017-12-09] MEDS: Furosemide 40 MG Tablet 60 MG PO ×3 (06:19→21:46)
[2017-12-09] MEDS: diazePAM 5 MG Tablet 10 MG PO (06:19)
[2017-12-09] MEDS: Gabapentin 100 MG Capsule 200 MG PO ×3 (06:19→21:45)
[2017-12-09] MEDS: tiZANidine HCl 2 MG Tablet PO (06:20)
[2017-12-09 09:25] LABS: Bedside Glucose 161 mg/dL (70-110)
[2017-12-09] MEDS: Cyanocobalamin 500 MCG Tablet 2000 MCG PO (09:29)
[2017-12-09] MEDS: Glucerna Shake 120 ML LIQUID PO ×3 (09:29→17:31)
[2017-12-09] MEDS: Calcium (Elemental) 500 MG Tablet PO ×2 (09:30→21:46)
[2017-12-09] MEDS: oxyCODONE 5 MG Tablet PO ×2 (09:30→19:33)
[2017-12-09] MEDS: Carvedilol 6.25 MG Tablet PO ×2 (09:31→21:46)
[2017-12-09] MEDS: Folic Acid 1 MG Tablet PO (09:31)
[2017-12-09] MEDS: Loratadine 10 MG Tablet PO (09:31)
[2017-12-09] MEDS: Aspirin 81 MG TAB.CHEW PO (09:31)
[2017-12-09] MEDS: Flecainide 150 MG Tablet PO ×2 (09:31→21:45)
[2017-12-09] MEDS: Bisacodyl 5 MG Tablet PO (09:31)
[2017-12-09] MEDS: Pantoprazole Sodium 40 MG Tablet PO (09:31)
[2017-12-09] MEDS: Ferrous Sulfate 325 MG Tablet PO (09:31)
[2017-12-09] MEDS: amLODIPine 5 MG Tablet PO (09:34)
[2017-12-09] MEDS: Lisinopril 20 MG Tablet PO (09:34)
[2017-12-09] MEDS: Nystatin Powder 15gm Bottle 1 APPLIC TOPICAL ×2 (09:48→21:54)
[2017-12-09] MEDS: Ipratropium Bromide 0.06% NASAL SPRAY 2 SPRAY NASAL (09:48)
--- NOTE | 2017-12-09 10:17 | PCM.PN.HOSP ---
Patient Problems: Active and Suspected Problems (Last Reviewed 12/04/17 @ 01:53 by Sanjay Rhodes MD) Facial cellulitis (Acute) Subjective: Still pain in her chin. Helped mostly by morphine. Vitals/I&O's: Vital Signs Temp Pulse Resp BP Pulse Ox 36.4 C L 88 16 131/77 H 99 12/09/17 08:00 12/09/17 09:15 12/09/17 08:00 12/09/17 09:15 12/09/17 07:55 Oxygen Flow Rate (L/min) 2 Oxygen Delivery Method Room Air Weight: 107.411 kg Body Mass Index (BMI) 41.9 Intake and Output for Last 24 Hours 12/07/17 12/08/17 12/09/17 23:59 23:59 23:59 Intake Total 1067 / 1067 1231 / 1231 123 / 123 Output Total 350 / 350 Balance 1067 / 1067 1231 / 1231 -227 / -227 General: Alert, No apparent distress HEENT: - - left chin wound covered--did not remove. Oral: Moist Mucosa, No Gingival or Mucosal Lesions/ Ulcerations Neck: No Nodes, Thyroid Normal Size and Texture Lungs: Clear to auscultation, Normal air movement, No rhonchi, No wheeze Cardiovascular: Regular rate, Regular Rhythm, Normal S1, Normal S2, No murmurs Abdomen: Bowel Sounds Present, Soft, Non Tender, Non-Distended, No Hepato-splenomegaly Extremities: No edema, No Calf Tenderness Skin: No rashes, No breakdown Musculoskeletal: No Tenderness to Palpation of Joints or Extremities, No Muscle Wasting Psych/Mental Status: Normal Affect, Appropriate Microbiology Past 72 Hours 12/03/17 21:31 Blood Culture (Wb) - Left Wrist Blood Culture - Final No growth in 5 days. 12/03/17 21:15 Blood Culture (Wb) - No Site/Description Given Blood Culture - Final No growth in 5 days. 12/06/17 09:15 Tissue - Other Gram Stain - Final 12/06/17 09:15 Tissue - Other Wound Culture - Preliminary GNR Possible Haemophilus sp. 12/06/17 09:15 Tissue - Bone Gram Stain - Final 12/06/17 09:15 Tissue - Bone Wound Culture - Preliminary No growth-Final to follow 12/06/17 09:15 Tissue - Bone Anaerobic Culture - Preliminary No growth in 48 hours. 12/04/17 09:45 Wound - Face Gram Stain - Final 12/04/17 09:45 Wound - Face Wound Culture - Final Meth. resistant Staph. aureus Laboratory Results 12/08/17 10:55: PT 15.7 H, INR 1.3 12/08/17 12:40: POC Glucose 210 H 12/08/17 14:36: POC Glucose 160 H 12/08/17 17:28: POC Glucose 160 H 12/08/17 21:52: POC Glucose 234 H 12/09/17 05:20: WBC 6.9, RBC 3.24 L, Hgb 9.1 L, Hct 29.9 L, MCV 92.3, MCH 28.1, MCHC 30.4 L, RDW 15.4 H, RDW Differential 51.9 H, Plt Count 250, MPV 10.7, Immature Gran % (Auto) 0.100, Neut % (Auto) 71.7 H, Lymph % (Auto) 16.7 L, [place] % (Auto) 7.6, Eos % (Auto) 3.5, Baso % (Auto) 0.4, Absolute Neuts (auto) 4.9, Absolute Lymphs (auto) 1.15, Total Counted Not Reportable 12/09/17 05:20: PT 16.2 H, INR 1.3 12/09/17 05:20: Sodium 141, Potassium 4.2, Chloride 99, Carbon Dioxide 35.0 H, Anion Gap 7, BUN 37 H, Creatinine 1.18 H, Estim Creat Clear Calc 37.22, Est GFR (MDRD) Af Amer 58 L, Est GFR (MDRD) Non-Af 48 L, BUN/Creatinine Ratio 31.4 H, Glucose 153 H, Calcium 8.5 12/09/17 09:01: POC Glucose 161 H Current Medications Albuterol Sulfate (Ventolin Aerosols) 2.5 mg INHALATION Q4H PRN PRN PRN Reason: SOB wheezing Albuterol/Ipratropium (Duoneb) 3 ml INHALATION Q6HWA.RT AMIE Last Admin: 12/09/17 07:00 Dose: Not Given Amlodipine Besylate (Norvasc) 5 mg PO DAILY [facility] Last Admin: 12/09/17 09:34 Dose: 5 mg Aspirin (Aspirin, Baby) 81 mg PO DAILY@0800 [facility] Last Admin: 12/09/17 09:31 Dose: 81 mg Atorvastatin Calcium (Lipitor) 20 mg PO QHS [facility] Last Admin: 12/08/17 21:43 Dose: 20 mg Bisacodyl (Dulcolax) 5 mg PO DAILY PRN PRN PRN Reason: Constipation Last Admin: 12/09/17 09:31 Dose: 5 mg Calcium Carbonate (Os-Kirill 500) 500 mg PO BID [facility] Last Admin: 12/09/17 09:30 Dose: 500 mg Carvedilol (Coreg) 6.25 mg PO BID [facility] Last Admin: 12/09/17 09:31 Dose: 6.25 mg Cyanocobalamin (Vitamin B12) 2,000 mcg PO DAILY [facility] Last Admin: 12/09/17 09:29 Dose: 2,000 mcg Dextrose (D50w Syringe) 0 gm IV X1 PRN; Protocol PRN Reason: Hypoglycemia Diazepam (Valium) 10 mg PO TID [facility] Last Admin: 12/09/17 06:19 Dose: 10 mg Diphenoxylate HCl/Atropine (Lomotil) 1 tablet PO Q6H PRN PRN PRN Reason: Diarrhea Ferrous Sulfate (Ferrous Sulfate) 325 mg PO DAILY@0800 [facility] Last Admin: 12/09/17 09:31 Dose: 325 mg Flecainide Acetate (Tambocor) 150 mg PO Q12 [facility] Last Admin: 12/09/17 09:31 Dose: 150 mg Folic Acid (Folic Acid) 1 mg PO DAILY@0800 [facility] Last Admin: 12/09/17 09:31 Dose: 1 mg Furosemide (Lasix) 60 mg PO TID [facility] Last Admin: 12/09/17 06:19 Dose: 60 mg Gabapentin (Neurontin) 200 mg PO TID [facility] Last Admin: 12/09/17 06:19 Dose: 200 mg Glucagon () 1 mg IM .X1 PRN PRN Reason: Hypoglycemia Vancomycin HCl 1,250 mg/ (Sodium Chloride) 275 mls @ 167 mls/hr IV Q24H [facility] Last Admin: 12/08/17 22:09 Dose: 167 mls/hr Vancomycin IV Pharmacy to Dose (1 ea/ Sodium Chloride) 500 mls @ 250 mls/hr IV X1 PRN PRN Reason: Protocol Ceftriaxone Sodium 2 gm/ (Dextrose) 50 mls @ 100 mls/hr IV Q24 [facility] Last Admin: 12/08/17 11:23 Dose: 100 mls/hr Insulin Glargine (Lantus (Bkc)) 18 units SC QHS [facility] Last Admin: 12/08/17 21:53 Dose: 18 units Insulin Glargine (Lantus (Bkc)) 10 units SC BREAKFAST [facility] Last Admin: 12/08/17 10:24 Dose: 10 u Insulin Human Lispro (Humalog Kwikpen (Bkc)) 15 unit SQ LUNCH [facility] Last Admin: 12/08/17 13:20 Dose: 15 units Insulin Human Lispro (Humalog Kwikpen (Bkc)) 10 unit SQ DINNER [facility] Last Admin: 12/08/17 17:55 Dose: 10 u Insulin Human Lispro (Humalog Kwikpen (Bkc)) 10 unit SQ BREAKFAST [facility] Last Admin: 12/08/17 10:19 Dose: 10 u Insulin Human Lispro (Humalog Kwikpen (Bkc)) 0 unit SQ ACHS [facility] PRN Reason: Protocol Last Admin: 12/08/17 21:54 Dose: 2 units Ipratropium [place] (Atrovent Nasal [place] (G)) 2 spray NASAL BID [facility] Last Admin: 12/09/17 09:48 Dose: 2 spray Labetalol HCl (Trandate) 10 mg IV Q4H PRN PRN PRN Reason: SBP > 160, hold for HR < 60 Lisinopril (Zestril) 20 mg PO DAILY [facility] Last Admin: 12/09/17 09:34 Dose: 20 mg Loratadine (Claritin) 10 mg PO DAILY [facility] Last Admin: 12/09/17 09:31 Dose: 10 mg Magnesium Hydroxide (Milk Of Magnesia) 30 ml PO DAILY PRN PRN PRN Reason: Constipation Last Admin: 12/08/17 05:40 Dose: 30 ml Morphine Sulfate () 1 - 2 mg IV Q4H PRN PRN PRN Reason: BREAKTHROUGH PAIN (>4/10) Last Admin: 12/08/17 22:04 Dose: 2 mg Nutritional Formula (Lactose Free) (Glucerna Shake) 120 ml PO 4X/DAY [facility] Last Admin: 12/09/17 09:29 Dose: 120 ml Nystatin (Mycostatin Powder) 1 applic TOPICAL BID [facility] PRN Reason: Protocol Last Admin: 12/09/17 09:48 Dose: 1 applicatio Ondansetron HCl (Zofran) 4 mg IV Q8H PRN PRN PRN Reason: NAUSEA Last Admin: 12/08/17 10:02 Dose: 4 mg Oxycodone HCl (Oxyir) 5 - 10 mg PO Q4H PRN PRN PRN Reason: Moderate Pain (pain scale 4-5) Last Admin: 12/09/17 09:30 Dose: 10 mg Pantoprazole Sodium (Protonix) 40 mg PO DAILY [facility] Last Admin: 12/09/17 09:31 Dose: 40 mg Potassium Chloride (K-Dur) 40 meq PO DAILY@0800 [facility] Last Admin: 12/09/17 09:29 Dose: 40 meq Sodium Chloride () 5 - 30 ml IV UD PRN PRN Reason: SALINE FLUSH Last Admin: 12/08/17 10:58 Dose: 30 ml Tizanidine HCl (Zanaflex) 2 mg PO TID [facility] Last Admin: 12/09/17 06:20 Dose: 2 mg Trazodone HCl (Desyrel) 50 mg PO QHS [facility] Last Admin: 12/08/17 21:43 Dose: 50 mg Warfarin Sodium (Coumadin (Pbkc)) 7.5 mg PO TuWeTh@1700 [facility] PRN Reason: Protocol Last Admin: 12/08/17 17:53 Dose: 7.5 mg Warfarin Sodium (Coumadin (Pbkc)) 10 mg PO SuMoFrSa@1700 [facility] Last Admin: 12/05/17 15:34 Dose: Not Given Medical Necessity - Tobacco Use Smoking Status: Never smoker Assessment/Plan All Active Problems (Last Reviewed 12/04/17 @ 01:53 by Sanjay Rhodes MD) Osteomyelitis of mandible (Acute) Abscess of chin (Acute) Methicillin resistant Staphylococcus aureus infection (Acute) Facial cellulitis (Acute) History of facial surgery (Resolved) History of tonsillectomy (Resolved) History of bilateral knee replacement (Resolved) History of cataract extraction (Resolved) History of syncope (Acute) Syncope (Acute) Acute asthmatic bronchitis (Resolved) Acute exacerbation of CHF (congestive heart failure) (Resolved) Atrial fibrillation with RVR (Resolved) Paroxysmal A-fib (Resolved) SOB (shortness of breath) (Resolved) 1. Facial cellulitis ongoing possible osteomyelitis +MRSA Blood cultures negative so far wound culture shows MRSA tissue culture growing GNR (possible Haemohilus) on CTX and vanc ID and PRS following. s/p I+D on 12/06 2. Chronic afib on Coreg and coumadin INR only 1.3 today despite taking coumadin. Resume coumadin when ok with PRS 3. DM2 fair control 4. DVT proph: SCDs for now. 5. Facial pain post-op. increase oxycodone to 5-10mg Q4 prn and morphine for breakthrough. Code Visit Inpatient E&M: 30428 Subs Hosp L2
--- NOTE | 2017-12-09 10:20 | PN_ITS ---
Patient Problems: Active and Suspected Problems (Last Reviewed 12/04/17 @ 01:53 by Sanjay Rhodes MD) Facial cellulitis (Acute) Subjective: Still pain in her chin. Helped mostly by morphine. Vitals/I&O's: Vital Signs Temp Pulse Resp BP Pulse Ox 36.4 C L 88 16 131/77 H 99 12/09/17 08:00 12/09/17 09:15 12/09/17 08:00 12/09/17 09:15 12/09/17 07:55 Oxygen Flow Rate (L/min) 2 Oxygen Delivery Method Room Air Weight: 107.411 kg Body Mass Index (BMI) 41.9 Intake and Output for Last 24 Hours 12/07/17 12/08/17 12/09/17 23:59 23:59 23:59 Intake Total 1067 / 1067 1231 / 1231 123 / 123 Output Total 350 / 350 Balance 1067 / 1067 1231 / 1231 -227 / -227 General: Alert, No apparent distress HEENT: - - left chin wound covered--did not remove. Oral: Moist Mucosa, No Gingival or Mucosal Lesions/ Ulcerations Neck: No Nodes, Thyroid Normal Size and Texture Lungs: Clear to auscultation, Normal air movement, No rhonchi, No wheeze Cardiovascular: Regular rate, Regular Rhythm, Normal S1, Normal S2, No murmurs Abdomen: Bowel Sounds Present, Soft, Non Tender, Non-Distended, No Hepato- splenomegaly Extremities: No edema, No Calf Tenderness Skin: No rashes, No breakdown Musculoskeletal: No Tenderness to Palpation of Joints or Extremities, No Muscle Wasting Psych/Mental Status: Normal Affect, Appropriate Microbiology Past 72 Hours 12/03/17 21:31 Blood Culture (Wb) - Left Wrist Blood Culture - Final No growth in 5 days. 12/03/17 21:15 Blood Culture (Wb) - No Site/Description Given Blood Culture - Final No growth in 5 days. 12/06/17 09:15 Tissue - Other Gram Stain - Final 12/06/17 09:15 Tissue - Other Wound Culture - Preliminary GNR Possible Haemophilus sp. 12/06/17 09:15 Tissue - Bone Gram Stain - Final 12/06/17 09:15 Tissue - Bone Wound Culture - Preliminary No growth-Final to follow 12/06/17 09:15 Tissue - Bone Anaerobic Culture - Preliminary No growth in 48 hours. 12/04/17 09:45 Wound - Face Gram Stain - Final 12/04/17 09:45 Wound - Face Wound Culture - Final Meth. resistant Staph. aureus Laboratory Results 12/08/17 10:55: PT 15.7 H, INR 1.3 12/08/17 12:40: POC Glucose 210 H 12/08/17 14:36: POC Glucose 160 H 12/08/17 17:28: POC Glucose 160 H 12/08/17 21:52: POC Glucose 234 H 12/09/17 05:20: WBC 6.9, RBC 3.24 L, Hgb 9.1 L, Hct 29.9 L, MCV 92.3, MCH 28.1, MCHC 30.4 L, RDW 15.4 H, RDW Differential 51.9 H, Plt Count 250, MPV 10.7, Immature Gran % (Auto) 0.100, Neut % (Auto) 71.7 H, Lymph % (Auto) 16.7 L, [place] % (Auto) 7.6, Eos % (Auto) 3.5, Baso % (Auto) 0.4, Absolute Neuts (auto) 4.9, Absolute Lymphs (auto) 1.15, Total Counted Not Reportable 12/09/17 05:20: PT 16.2 H, INR 1.3 12/09/17 05:20: Sodium 141, Potassium 4.2, Chloride 99, Carbon Dioxide 35.0 H, Anion Gap 7, BUN 37 H, Creatinine 1.18 H, Estim Creat Clear Calc 37.22, Est GFR (MDRD) Af Amer 58 L, Est GFR (MDRD) Non-Af 48 L, BUN/Creatinine Ratio 31.4 H, Glucose 153 H, Calcium 8.5 12/09/17 09:01: POC Glucose 161 H Current Medications Albuterol Sulfate (Ventolin Aerosols) 2.5 mg INHALATION Q4H PRN PRN PRN Reason: SOB wheezing Albuterol/Ipratropium (Duoneb) 3 ml INHALATION Q6HWA.RT AMIE Last Admin: 12/09/17 07:00 Dose: Not Given Amlodipine Besylate (Norvasc) 5 mg PO DAILY [facility] Last Admin: 12/09/17 09:34 Dose: 5 mg Aspirin (Aspirin, Baby) 81 mg PO DAILY@0800 [facility] Last Admin: 12/09/17 09:31 Dose: 81 mg Atorvastatin Calcium (Lipitor) 20 mg PO QHS [facility] Last Admin: 12/08/17 21:43 Dose: 20 mg Bisacodyl (Dulcolax) 5 mg PO DAILY PRN PRN PRN Reason: Constipation Last Admin: 12/09/17 09:31 Dose: 5 mg Calcium Carbonate (Os-Kirill 500) 500 mg PO BID [facility] Last Admin: 12/09/17 09:30 Dose: 500 mg Carvedilol (Coreg) 6.25 mg PO BID [facility] Last Admin: 12/09/17 09:31 Dose: 6.25 mg Cyanocobalamin (Vitamin B12) 2,000 mcg PO DAILY [facility] Last Admin: 12/09/17 09:29 Dose: 2,000 mcg Dextrose (D50w Syringe) 0 gm IV X1 PRN; Protocol PRN Reason: Hypoglycemia Diazepam (Valium) 10 mg PO TID [facility] Last Admin: 12/09/17 06:19 Dose: 10 mg Diphenoxylate HCl/Atropine (Lomotil) 1 tablet PO Q6H PRN PRN PRN Reason: Diarrhea Ferrous Sulfate (Ferrous Sulfate) 325 mg PO DAILY@0800 [facility] Last Admin: 12/09/17 09:31 Dose: 325 mg Flecainide Acetate (Tambocor) 150 mg PO Q12 [facility] Last Admin: 12/09/17 09:31 Dose: 150 mg Folic Acid (Folic Acid) 1 mg PO DAILY@0800 [facility] Last Admin: 12/09/17 09:31 Dose: 1 mg Furosemide (Lasix) 60 mg PO TID [facility] Last Admin: 12/09/17 06:19 Dose: 60 mg Gabapentin (Neurontin) 200 mg PO TID [facility] Last Admin: 12/09/17 06:19 Dose: 200 mg Glucagon () 1 mg IM .X1 PRN PRN Reason: Hypoglycemia Vancomycin HCl 1,250 mg/ (Sodium Chloride) 275 mls @ 167 mls/hr IV Q24H [facility] Last Admin: 12/08/17 22:09 Dose: 167 mls/hr Vancomycin IV Pharmacy to Dose (1 ea/ Sodium Chloride) 500 mls @ 250 mls/hr IV X1 PRN PRN Reason: Protocol Ceftriaxone Sodium 2 gm/ (Dextrose) 50 mls @ 100 mls/hr IV Q24 [facility] Last Admin: 12/08/17 11:23 Dose: 100 mls/hr Insulin Glargine (Lantus (Bkc)) 18 units SC QHS [facility] Last Admin: 12/08/17 21:53 Dose: 18 units Insulin Glargine (Lantus (Bkc)) 10 units SC BREAKFAST [facility] Last Admin: 12/08/17 10:24 Dose: 10 u Insulin Human Lispro (Humalog Kwikpen (Bkc)) 15 unit SQ LUNCH [facility] Last Admin: 12/08/17 13:20 Dose: 15 units Insulin Human Lispro (Humalog Kwikpen (Bkc)) 10 unit SQ DINNER [facility] Last Admin: 12/08/17 17:55 Dose: 10 u Insulin Human Lispro (Humalog Kwikpen (Bkc)) 10 unit SQ BREAKFAST [facility] Last Admin: 12/08/17 10:19 Dose: 10 u Insulin Human Lispro (Humalog Kwikpen (Bkc)) 0 unit SQ ACHS [facility] PRN Reason: Protocol Last Admin: 12/08/17 21:54 Dose: 2 units Ipratropium [place] (Atrovent Nasal [place] (G)) 2 spray NASAL BID [facility] Last Admin: 12/09/17 09:48 Dose: 2 spray Labetalol HCl (Trandate) 10 mg IV Q4H PRN PRN PRN Reason: SBP > 160, hold for HR < 60 Lisinopril (Zestril) 20 mg PO DAILY [facility] Last Admin: 12/09/17 09:34 Dose: 20 mg Loratadine (Claritin) 10 mg PO DAILY [facility] Last Admin: 12/09/17 09:31 Dose: 10 mg Magnesium Hydroxide (Milk Of Magnesia) 30 ml PO DAILY PRN PRN PRN Reason: Constipation Last Admin: 12/08/17 05:40 Dose: 30 ml Morphine Sulfate () 1 - 2 mg IV Q4H PRN PRN PRN Reason: BREAKTHROUGH PAIN (>4/10) Last Admin: 12/08/17 22:04 Dose: 2 mg Nutritional Formula (Lactose Free) (Glucerna Shake) 120 ml PO 4X/DAY [facility] Last Admin: 12/09/17 09:29 Dose: 120 ml Nystatin (Mycostatin Powder) 1 applic TOPICAL BID [facility] PRN Reason: Protocol Last Admin: 12/09/17 09:48 Dose: 1 applicatio Ondansetron HCl (Zofran) 4 mg IV Q8H PRN PRN PRN Reason: NAUSEA Last Admin: 12/08/17 10:02 Dose: 4 mg Oxycodone HCl (Oxyir) 5 - 10 mg PO Q4H PRN PRN PRN Reason: Moderate Pain (pain scale 4-5) Last Admin: 12/09/17 09:30 Dose: 10 mg Pantoprazole Sodium (Protonix) 40 mg PO DAILY [facility] Last Admin: 12/09/17 09:31 Dose: 40 mg Potassium Chloride (K-Dur) 40 meq PO DAILY@0800 [facility] Last Admin: 12/09/17 09:29 Dose: 40 meq Sodium Chloride () 5 - 30 ml IV UD PRN PRN Reason: SALINE FLUSH Last Admin: 12/08/17 10:58 Dose: 30 ml Tizanidine HCl (Zanaflex) 2 mg PO TID [facility] Last Admin: 12/09/17 06:20 Dose: 2 mg Trazodone HCl (Desyrel) 50 mg PO QHS [facility] Last Admin: 12/08/17 21:43 Dose: 50 mg Warfarin Sodium (Coumadin (Pbkc)) 7.5 mg PO TuWeTh@1700 [facility] PRN Reason: Protocol Last Admin: 12/08/17 17:53 Dose: 7.5 mg Warfarin Sodium (Coumadin (Pbkc)) 10 mg PO SuMoFrSa@1700 [facility] Last Admin: 12/05/17 15:34 Dose: Not Given Medical Necessity - Tobacco Use Smoking Status: Never smoker Assessment/Plan All Active Problems (Last Reviewed 12/04/17 @ 01:53 by Sanjay Rhodes MD) Osteomyelitis of mandible (Acute) Abscess of chin (Acute) Methicillin resistant Staphylococcus aureus infection (Acute) Facial cellulitis (Acute) History of facial surgery (Resolved) History of tonsillectomy (Resolved) History of bilateral knee replacement (Resolved) History of cataract extraction (Resolved) History of syncope (Acute) Syncope (Acute) Acute asthmatic bronchitis (Resolved) Acute exacerbation of CHF (congestive heart failure) (Resolved) Atrial fibrillation with RVR (Resolved) Paroxysmal A-fib (Resolved) SOB (shortness of breath) (Resolved) 1. Facial cellulitis * ongoing * possible osteomyelitis * +MRSA * Blood cultures negative so far * wound culture shows MRSA * tissue culture growing GNR (possible Haemohilus) * on CTX and vanc * ID and PRS following. * s/p I+D on 12/06 2. Chronic afib * on Coreg and coumadin * INR only 1.3 today despite taking coumadin. * Resume coumadin when ok with PRS 3. DM2 * fair control 4. DVT proph: SCDs for now. 5. Facial pain * post-op. * increase oxycodone to 5-10mg Q4 prn and morphine for breakthrough. Code Visit Inpatient E&M: 85251 Subs Hosp L2
[2017-12-09] MEDS: Insulin Lispro 100 UNIT/ML INSULN.PEN 10 UNIT SQ ×2 (10:52→17:29)
[2017-12-09] MEDS: Insulin Lispro 100 UNIT/ML INSULN.PEN SQ ×4 (10:53→21:53)
--- NOTE | 2017-12-09 11:03 | NURSING ---
Addendum entered by Marilee Khan 12/09/17 13:19: 1120 PT reported that she was able to cough up the food that went to the wrong place. O2 sat 93 on room air. Lungs sound clear/dim. Original Note: Pt is coughing. Pt stated that some of her breakfast went to the wrong place. Pt stated that she was eating eggs and started to cough. While coughing some of the eggs went to the wrong place. Pt continues to cough and denies having any swallowing issues. Pt's lunch were clear to auscultation this morning. Rhonchi noted
[2017-12-09 13:21] LABS: Bedside Glucose 227 mg/dL (70-110)
--- NOTE | 2017-12-09 14:33 | PCM.PN.ID ---
Patient Problems: Active and Suspected Problems (Last Reviewed 12/04/17 @ 01:53 by Sanjay Rhodes MD) Facial cellulitis (Acute) Subjective: Feeling ok, no fever, chin still painful. - Physical Exam General: Alert, Cooperative, No apparent distress Lungs: Clear to auscultation, Normal air movement Cardiovascular: Regular rate, Regular Rhythm Abdomen: Soft, Non Tender, Non-Distended Skin: Ulcer/ Wound - chin bandaged Vital Signs Temp Pulse Resp BP Pulse Ox 97.6 F L 88 16 131/77 H 99 12/09/17 08:00 12/09/17 09:15 12/09/17 08:00 12/09/17 09:15 12/09/17 07:55 Oxygen Flow Rate (L/min) 2 Oxygen Delivery Method Room Air Weight: 107.411 kg Body Mass Index (BMI) 41.9 Intake and Output for Last 24 Hours 12/07/17 12/08/17 12/09/17 23:59 23:59 23:59 Intake Total 1067 / 1067 1231 / 1231 123 / 123 Output Total 350 / 350 Balance 1067 / 1067 1231 / 1231 -227 / -227 Microbiology Past 72 Hours 12/06/17 09:15 Gram Stain - Final Tissue - Other Wound Culture - Preliminary Haemophilus parainfluenzae 12/06/17 09:15 Gram Stain - Final Tissue - Bone Wound Culture - Final No growth aerobically. Anaerobic Culture - Preliminary No growth in 48 hours. 12/03/17 21:31 Blood Culture - Final Blood Culture (Wb) - Left Wrist No growth in 5 days. 12/03/17 21:15 Blood Culture - Final Blood Culture (Wb) - No Site/Description Given No growth in 5 days. Laboratory Tests Past 24 Hrs 12/09/17 12/09/17 12/09/17 05:20 05:20 05:20 WBC 6.9 RBC 3.24 L Hgb 9.1 L Hct 29.9 L MCV 92.3 MCH 28.1 MCHC 30.4 L RDW 15.4 H RDW Differential 51.9 H Plt Count 250 MPV 10.7 Immature Gran % (Auto) 0.100 Neut % (Auto) 71.7 H Lymph % (Auto) 16.7 L [place] % (Auto) 7.6 Eos % (Auto) 3.5 Baso % (Auto) 0.4 Absolute Neuts (auto) 4.9 Absolute Lymphs (auto) 1.15 Total Counted Not Reportable PT 16.2 H INR 1.3 Sodium 141 Potassium 4.2 Chloride 99 Carbon Dioxide 35.0 H Anion Gap 7 BUN 37 H Creatinine 1.18 H Estim Creat Clear Calc 37.22 Est GFR (MDRD) Af Amer 58 L Est GFR (MDRD) Non-Af 48 L BUN/Creatinine Ratio 31.4 H Glucose 153 H Calcium 8.5 POC Glucose 12/09/17 12/09/17 12/08/17 13:14 09:01 21:52 POC Glucose 227 H 161 H 234 H 12/08/17 12/08/17 17:28 14:36 POC Glucose 160 H 160 H Medical Necessity - Tobacco Use Smoking Status: Never smoker Route of nutrition/ use of supplements: [] Nutritional Intake: [] IV Site: [] Muro Catheter: [] - Assessment/Plan Antibiotics: [] Assessment/Plan: [] Active and Suspected Problems (Last Reviewed 12/04/17 @ 01:53 by Sanjay Rhodes MD) Facial cellulitis (Acute) MRSA chin abscess and cellulitis - taken to [place] 12/[address] Soto. Surg cx now with haemophilis, beta lactamase neg. Bone cx neg. 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 Will need further cancer work-up. Narrow abx to doxy/keflex for planned short course (7 more days). Will follow
[2017-12-09] MEDS: Insulin Lispro 100 UNIT/ML INSULN.PEN 15 UNIT SQ (14:48)
[2017-12-09 16:51] LABS: Bedside Glucose 198 mg/dL (70-110)
[2017-12-09] MEDS: Ipratropium/Albuterol Sulfate 3 ML AMPUL.NEB INHALATION (19:18)
[2017-12-09] MEDS: Doxycycline 100 MG CAPSULE PO (21:45)
[2017-12-09] MEDS: Cephalexin 500 MG Capsule PO (21:45)
[2017-12-09] MEDS: Atorvastatin Calcium 20 MG Tablet PO (21:46)
[2017-12-09 22:00] LABS: Bedside Glucose 159 mg/dL (70-110)
[2017-12-09] MEDS: Morphine 2 MG/ML Syringe IV (22:02)
[2017-12-10] VITALS (8 sets, daily range): BP systolic 120–145; BP diastolic 76–83; PULSE 60–96; RESP 16–20; TEMP 36.6–36.9; O2SAT 93–96
[2017-12-10] MEDS: Morphine 2 MG/ML Syringe IV (02:28)
[2017-12-10] MEDS: Furosemide 40 MG Tablet 60 MG PO ×2 (06:20→14:50)
[2017-12-10] MEDS: Gabapentin 100 MG Capsule 200 MG PO ×2 (06:21→14:49)
[2017-12-10] MEDS: Cephalexin 500 MG Capsule PO ×2 (06:21→14:49)
[2017-12-10] MEDS: tiZANidine HCl 2 MG Tablet PO ×2 (06:21→14:49)
[2017-12-10] MEDS: diazePAM 5 MG Tablet 10 MG PO ×2 (06:22→15:06)
[2017-12-10] MEDS: Ipratropium/Albuterol Sulfate 3 ML AMPUL.NEB INHALATION (06:34)
[2017-12-10] MEDS: Aspirin 81 MG TAB.CHEW PO (08:28)
[2017-12-10] MEDS: Folic Acid 1 MG Tablet PO (08:28)
[2017-12-10] MEDS: Ferrous Sulfate 325 MG Tablet PO (08:29)
[2017-12-10] MEDS: Insulin Lispro 100 UNIT/ML INSULN.PEN 10 UNIT SQ ×2 (10:12→17:33)
[2017-12-10] MEDS: oxyCODONE 5 MG Tablet PO ×3 (10:17→18:58)
[2017-12-10] MEDS: Nystatin Powder 15gm Bottle 1 APPLIC TOPICAL (10:21)
[2017-12-10] MEDS: Ipratropium Bromide 0.06% NASAL SPRAY 2 SPRAY NASAL (10:22)
[2017-12-10] MEDS: Loratadine 10 MG Tablet PO (10:23)
[2017-12-10] MEDS: Lisinopril 20 MG Tablet PO (10:23)
[2017-12-10] MEDS: Pantoprazole Sodium 40 MG Tablet PO (10:23)
[2017-12-10] MEDS: amLODIPine 5 MG Tablet PO (10:23)
[2017-12-10] MEDS: Doxycycline 100 MG CAPSULE PO (10:23)
[2017-12-10] MEDS: Flecainide 150 MG Tablet PO (10:23)
[2017-12-10] MEDS: Cyanocobalamin 500 MCG Tablet 2000 MCG PO (10:23)
[2017-12-10] MEDS: Calcium (Elemental) 500 MG Tablet PO (10:23)
[2017-12-10] MEDS: Carvedilol 6.25 MG Tablet PO (10:23)
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
--- NOTE | 2017-12-10 12:03 | PCM.DC ---
- Discharge Diagnoses Current Active Problems: Current Active and Chronic Problems (Last Reviewed 12/04/17 @ 01:53 by Sanjay Rhodes MD) Facial cellulitis (Acute) You will use the following diet at home:: Calorie/Carbohydrate Controlled (specify 1200, 1400, etc) - 1800, Cardiac Your food should be the consistency of: Regular Your liquids should be the consistency of: Regular/Thin Discharge Activity: Return to Normal Activity Call your doctor if your incision/area has: Continuous Slow Oozing, Sudden Increased Bleeding, Increased Pain/ Swelling, Increased Redness, Foul Smelling Discharge Call your doctor if you observe: Fever of 101 or Higher, - - worsening chin redness. discharge Instructions: What is COPD?, Understanding Type 2 Diabetes, Cellulitis - Causes,Symptoms,Treating Allergies/Adverse Reactions: Allergies ampicillin Allergy (Severe, Verified 12/03/17 16:05) Anaphylaxis hydrocodone bitartrate [From Vicodin] Allergy (Severe, Verified 12/03/17 16:05) Itching Penicillins Allergy (Severe, Verified 12/03/17 16:05) Anaphylaxis clarithromycin [From Biaxin] Allergy (Verified 12/03/17 16:05) Rash Red and itchy venom-honey bee [bee venom (honey bee)] Allergy (Verified 12/03/17 16:05) Nausea/Vom/Diarrhea Medications to take at Discharge Calcium Carbonate [Calcium] 500 mg PO BID 04/13/15 Diazepam [Valium] 10 mg PO TID 04/13/15 Metformin HCl [Glucophage] 1,000 mg PO QHS 04/13/15 Metformin HCl [Glucophage] 500 mg PO BREAKFAST 04/13/15 Omeprazole [Prilosec] 40 mg PO DAILY 04/13/15 traZODone [Desyrel] 50 mg PO QHS 04/13/15 Aspirin [Aspirin, Baby] 81 mg PO DAILY@0800 tab.chew 04/18/15 Tizanidine HCl [Zanaflex] 2 mg PO TID 05/13/15 Oxycodone HCl/Acetaminophen [Percocet 10-325 mg Tablet] 7.5 mg PO TID 07/20/16 Albuterol Inhaler [Ventolin Hfa] 2 puff INHALATION Q4H PRN PRN #1 inhaler 08/14/16 Cetirizine HCl [Zyrtec] 10 mg PO DAILY #30 cap 08/18/16 Ferrous Sulfate 325 mg PO DAILY@0800 #30 tab 08/18/16 Gabapentin [Neurontin] 600 mg PO TID 01/26/17 atorvastatin 20 mg tablet 20 mg PO QHS tab 03/09/17 lisinopril 20 mg tablet 20 mg PO QDAY 03/09/17 flecainide 150 mg tablet 150 mg PO Q12H #180 tab 04/18/17 insulin NPH isophane U-100 human 100 unit/mL subcutaneous suspension 18 unit SC QPM 04/18/17 insulin lispro (U-100) 100 unit/mL subcutaneous solution 24 unit SC QAM 04/18/17 amlodipine 5 mg tablet 5 mg PO QDAY #90 tab 06/27/17 Furosemide 40 mg PO TID 08/03/17 Insulin Lispro [Humalog] 10 unit SC LUNCH 08/03/17 Insulin Lispro [Humalog] 15 unit SQ DINNER 08/03/17 Insulin NPH Human [Humulin N Pen] 10 units SC DAILY@0730 08/03/17 metolazone 2.5 mg tablet 2.5 mg PO .COMPLEX #10 tab 08/05/17 potassium chloride ER 20 mEq tablet,extended release(part/cryst) 40 meq PO QDAY #60 tab 08/17/17 warfarin 10 mg tablet 10 mg PO SUMOFRSA #30 tab 10/03/17 warfarin 7.5 mg tablet 7.5 mg PO TUWETH #30 tab 10/03/17 carvedilol 6.25 mg tablet 6.25 mg PO BID #60 tab 10/20/17 Biotin 1 tab PO DAILY 11/18/17 Diphenoxylate/Atrop [Lomotil] 1 tab PO Q6H PRN PRN 11/18/17 Folic Acid 0.8 mg PO DAILY 11/18/17 Ipratropium [place] 0.06% [ATROVENT NASAL SPRAY] 2 spray NASAL BID 11/18/17 Vitamin B12 2,000 unit PO DAILY 11/18/17 Cephalexin [Keflex] 500 mg PO Q8 #21 cap 12/10/17 Doxycycline 100 mg PO BID #14 cap 12/10/17 The following prescriptions were given: Cephalexin [Keflex] 500 mg PO Q8 #21 cap Doxycycline 100 mg PO BID #14 cap Primary Care Physician: Nigel Hoang Jr., MD [Primary Care Provider] - Within 2 Weeks Test Results: Test results from this visit will be discussed in further detail at your follow-up appointment, if applicable. Please Follow Up With: Tucker Soto MD When: 1-2 weeks Please Follow Up With: Rich - Pain management When: 1-2 weeks Proposed Discharge Date: 12/10/17
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
[2017-12-10 13:42] LABS: International Normalized Ratio 1.6; Prothrombin Time (Protime)PT. 18.9 SECONDS (11.7-14.9)
[2017-12-10 14:31] LABS: Bedside Glucose 139 mg/dL (70-110)
[2017-12-10] MEDS: Insulin Lispro 100 UNIT/ML INSULN.PEN 15 UNIT SQ (14:46)
[2017-12-10] MEDS: Insulin Lispro 100 UNIT/ML INSULN.PEN SQ (14:46)
[2017-12-10] MEDS: Glucerna Shake 120 ML LIQUID PO (14:47)
[2017-12-10 15:01] LABS: Bedside Glucose 160 mg/dL (70-110)
[2017-12-10 17:45] LABS: Bedside Glucose 124 mg/dL (70-110)
--- NOTE | 2017-12-12 14:33 | CASEMGMT ---
JACK DC phone call. DC Date: Attempted call to home. No voicemail is set up. Christian FERNANDEZ RN ACM
--- NOTE | 2017-12-12 14:37 | CASEMGMT ---
JACK DC phone call. DC Date: 12/10/17 Attempted call to home. No voicemail is set up. Christian FERNANDEZ RN ACM
== END 2017-12-10 19:27 | disposition home health service (06) | DRG 574 ==
LOC: ED 19:39 → MS2 20:25
PROVIDERS: Anesthesiology; Family Medicine; Surgery; Admitting Provider Hospitalist; Emergency Provider Emergency Medicine; Family Provider Internal Medicine; PCP Internal Medicine
PROC: 0WB20ZZ Excision of Face, Open Approach (ICD-10-PCS; principal; 2017-12-06 07:15)
DX: L02.01 Cutaneous abscess of face (principal); Z68.41 Body mass index [BMI] 40.0-44.9, adult; L03.211 Cellulitis of face; N17.9 Acute kidney failure, unspecified; I50.32 Chronic diastolic (congestive) heart failure; I13.0 Hypertensive heart and chronic kidney disease with heart failure and stage 1 through stage 4 chronic kidney disease, or unspecified chronic kidney disease; E78.5 Hyperlipidemia, unspecified; E66.01 Morbid (severe) obesity due to excess calories; Z88.0 Allergy status to penicillin; Z79.01 Long term (current) use of anticoagulants; I48.2 Chronic atrial fibrillation; Z79.4 Long term (current) use of insulin; Z85.828 Personal history of other malignant neoplasm of skin; G47.33 Obstructive sleep apnea (adult) (pediatric); J44.9 Chronic obstructive pulmonary disease, unspecified; N18.3 Chronic kidney disease, stage 3 (moderate); E11.22 Type 2 diabetes mellitus with diabetic chronic kidney disease; D50.9 Iron deficiency anemia, unspecified; B95.62 Methicillin resistant Staphylococcus aureus infection as the cause of diseases classified elsewhere; Z85.819 Personal history of malignant neoplasm of unspecified site of lip, oral cavity, and pharynx
CPT/HCPCS: 36415; 36569; 70487; 71045; 80048; 80202; 82962; 83036; 83735; 84134; 84484; 85025; 85027; 85610; 85730; 87040; 87070; 87075; 87077; 87102; 87106; 87186; 87205; 87206; 87640; 88304; 88305; 88311; 93005; 94640; 96372; 97116; 97162; 97166; 97530; 97802; 99282; 99283; J7030; J7040; J7050; Q9967; A4216; J0696; J2405

== ENCOUNTER 2017-12-11 22:30 | Emergency (ER) | payer MEDICARE, SELFPAY ==
[2017-12-11 22:32] VITALS: BP 148/97; PULSE 96; RESP 14; TEMP 36.7; O2SAT 98; BMI 42.0
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
--- NOTE | 2017-12-11 23:23 | ED.DEP ---
ED Disposition - Plan for ED Patient: Disposition: Home or Assisted Living Chief Complaint: Wound Check Instructions: ED Wound Check Post Op No Infec Referrals: Nigel Hoang Jr., MD [Primary Care Provider] -
[2017-12-11] MEDS: oxyCODONE 5 MG Tablet 10 MG PO (23:26)
[2017-12-11 23:39] VITALS: RESP 18
== END 2017-12-11 23:41 | disposition home or self-care (01) ==
LOC: ED 23:35
PROVIDERS: Emergency Provider Emergency Medicine; Family Provider Internal Medicine; PCP Internal Medicine
DX: R51 Headache (principal); G89.28 Other chronic postprocedural pain; Z79.891 Long term (current) use of opiate analgesic; I11.0 Hypertensive heart disease with heart failure; I50.9 Heart failure, unspecified; J44.9 Chronic obstructive pulmonary disease, unspecified; E11.9 Type 2 diabetes mellitus without complications; Z79.4 Long term (current) use of insulin; Z79.82 Long term (current) use of aspirin; Z79.01 Long term (current) use of anticoagulants; Z79.899 Other long term (current) drug therapy
CPT/HCPCS: 99282

== ENCOUNTER 2017-12-18 19:25 | Inpatient (IN) | payer MEDICARE, SELFPAY ==
[2017-12-18 19:25] VITALS: BP 148/104; PULSE 97; RESP 15; TEMP 36.9; O2SAT 98; BMI 42.0
[2017-12-18] MEDS: 0.9% Normal Saline 1,000 ML 150 ML IV (20:21)
--- NOTE | 2017-12-18 20:22 | ED.RN ---
UNABLE TO GET ALL THE LAB WORK AFTER TWO NURSES ATTEMPTS,SO LAB WAS CALLED TO ATTEMPT.
[2017-12-18 20:48] LABS: Anion Gap 6 (5-15); BUN 21 mg/dL (7-18); BUN/Creat Ratio 18.6 RATIO (10-20); CRP 6.39 mg/L (0.0-3.0); Calcium,Total 8.4 mg/dL (8.5-10.1); Chloride 105 mmol/L (98-107); Creatinine, Serum 1.13 mg/dL (0.55-1.02); EST Glomerular Filtration Rate 51 mL/min (>60); Est Glom Filt Rate - Afr Amer 61 mL/min (>60); Estimated Creatinine Clearance 38.87 ml/min; Glucose 95 mg/dL (74-106); Potassium 4.8 mmol/L (3.5-5.1); Sodium Level 140 mmol/L (136-145)
[2017-12-18] MEDS: Morphine 4 MG/ML Syringe IV (21:08)
--- NOTE | 2017-12-18 21:08 | NURSING ---
PATIENT ASKED IF SHE CAN TAKE MORPHINE AND SHE SAID THAT SHE HAD IT LAST TIME SHE WAS HERE WITHOUT ANY REACTIONS.
[2017-12-18 21:32] LABS: Absolute Lymphocyte Count 1.29 X10^3/ul (0.83-4.51); Absolute Neutrophil Count 6.9 X10^3/uL (2.0-7.7); Basophil# 0.08 X10^3/uL; Basophil% 0.9 % (0-1); Eosinophil# 0.16 X10^3/uL; Eosinophils% 1.8 % (0-5); Hematocrit 34.5 % (37-47); Hemoglobin 11.2 g/dl (12.0-15.0); Lymphocyte # 1.29 X10^3/ul (4.0); Lymphocyte % 14.2 % (19-41); Mean Corp Hgb Conc 32.5 g/gl (32-36); Mean Corpuscular Hgb 28.8 pg (27.0-32.0); Mean Corpuscular Volume 88.7 fL (81-99); Mean Platelet Vol. 11.9 fl (6.2-12.0); Monocyte# 0.65 X10^3/uL; Monocyte% 7.2 % (0-10); Neutrophil # 6.86 X10^3/uL (2.7-7.7); Neutrophil % 75.7 % (47-70); Platelet Count 454 K/mm3 (150-450); RBC Distribution Width CV 14.9 % (11.6-14.6); Red Blood Count 3.89 M/mm3 (4.2-5.4); White Blood Count 9.1 K/mm3 (4.4-11.0)
[2017-12-18 21:35] LABS: Differential Indicated SCAN CRITERIA MET; POSITIVE COUNT YES; POSITIVE DIFFERENTIAL NO; POSITIVE MORPHOLOGY YES
[2017-12-18 21:38] LABS: Absolute Nucleated RBC Count 0.46 10^3/uL (0-5); Differential Comment SCANNED
[2017-12-18 21:39] LABS: Erythrocyte Sedimentation Rate 44 mm/hr (0-30)
--- NOTE | 2017-12-18 21:41 | NURSING ---
LAB UNABLE TO DRAW PT/INR OR SECOND BLOOD CULTURE. DR. PEMBERTON MADE AWARE.
[2017-12-18 22:04] VITALS: BP 139/83; PULSE 100; RESP 20; O2SAT 95
--- NOTE | 2017-12-18 22:16 | ED.DCSUM_ITS ---
- ER Visit Summary Date of Service: 12/18/17 Chief Complaint: [Wound check] History of Present Illness: The patient is a 67 F [presents to the emergency department with complaint of concern about her wound on her chin. Patient states that she had an abscess on her chin that was taken to the operating room as there was concern for osteomyelitis on 12/02.] Surgeon was Dr. Tucker Hamilton. Patient also was being seen by infectious disease and was on antibiotics. Patient was discharged to home with doxycycline and Keflex. They are here today because they noted increased drainage from the wound that is foul-smelling and there was a loculated pocket apparently that was popped by caregiver and large amount of purulent debris was expressed today. Patient's not had a fever. But she does complain of a lot of pain. She did during her last visit was found not to have osteomyelitis however there was some concern for squamous cell carcinoma. 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 Physical Examination: [HEENT-PERRLA, EOMI. Cranial nerves II through XII grossly intact. TMs clear. Mucous membranes moist. No adenopathy. Evaluation of her chin does reveal a large open wound measuring approximately 4 cm in length by about 3 cm in height that penetrates down to the mandible. The wound is packed and upon removing the packing there is an odor noted and some brownish drainage. Cardiovascular-elderly irregular. No murmurs auscultated. Lungs-clear to auscultation, chest wall stable without crepitus or subcu emphysema Abdomen-normoactive bowel sounds, soft, nontender, no rebound or rigidity, no peritoneal signs. Extremities-intact ?4, normal range of motion, normal pulses, atraumatic] Test Results: [CBC with differential obtained showed a white count of 9.1, hemoglobin 11.2, hematocrit 34.5. Chemistries unremarkable. Sed rate was 44. C-reactive protein was 6.39.] Emergency Department Course and Treatment: Patient had wound culture ordered as well as a blood culture. Patient was started on vancomycin.] Treatment Plan: [Admit for IV antibiotics and further evaluation by infectious disease] Disposition: [Admit] Impression: [Right chin wound/cellulitis] This note was generated with [employer] software. It may contain incorrect words, spelling, and punctuation that were not noted in review of the chart prior to signing ED Disposition - Plan for ED Patient: Chief Complaint: Wound Referrals: Nigel Hoang Jr., MD [Primary Care Provider] -
[2017-12-18 22:17] VITALS: BP 139/83; PULSE 100; RESP 20; TEMP 36.6; O2SAT 95
--- NOTE | 2017-12-18 22:33 | HP.PCM_ITS ---
Problem List (1) Asthma Status: Chronic Qualifiers: Asthma severity: unspecified severity Asthma persistence: unspecified Asthma complication type: unspecified Qualified Code(s): J45.909 - Unspecified asthma, uncomplicated (2) Obesity Status: Chronic Qualifiers: Obesity type: due to excess calories Obesity classification: adult class 3 (BMI >= 40) Body mass index: BMI 40.0-44.9 (3) BMI 40.0-44.9, adult Status: Chronic (4) Chronic diastolic (congestive) heart failure Status: Chronic (5) Sinus bradycardia Status: Chronic (6) Bilateral lower extremity edema Status: Chronic (7) History of cardioversion Status: Chronic (8) H/O basal cell carcinoma excision Status: Chronic (9) Persistent atrial fibrillation Status: Chronic (10) HTN (hypertension) Status: Chronic Qualifiers: Hypertension type: essential hypertension Qualified Code(s): I10 - Essential (primary) hypertension (11) HLD (hyperlipidemia) Status: Chronic Qualifiers: Hyperlipidemia type: pure hypercholesterolemia Qualified Code(s): E78.00 - Pure hypercholesterolemia, unspecified; E78.0 - Pure hypercholesterolemia (12) Diabetes mellitus Status: Chronic Qualifiers: Diabetes mellitus type: type 2 Diabetes mellitus assisted insulin use: 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 Diabetes mellitus complication status: with unspecified complications Qualified Code(s): E11.8 - Type 2 diabetes mellitus with unspecified complications; 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 (13) COPD (chronic obstructive pulmonary disease) Status: Chronic Qualifiers: COPD type: unspecified COPD Qualified Code(s): J44.9 - Chronic obstructive pulmonary disease, unspecified (14) NICKOLAS (obstructive sleep apnea) Status: Chronic History of Present Illness Date of Admission: 12/18/17 Chief Complaint: Increased draininage, recent I+D facial cellulitis, anterior mandible osteomyelitis The patient is a 67 y/o F w/ PMHx: CKD stage III, Fe deficiency anemia, Diabetes mellitus type II w/ Neuropathy, HTN, HLD, Anxiety and Depression, NICKOLAS, PAF, Diastolic CHF, Morbid Obesity, Chronic COPD, Hx Basal Cell CA and 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 ED on 12/18/17 with increased yellow and brown foul smelling drainage, ruptured loculations opened upon recent packing, ongoing severe pain, chills as well as nausea and emesis now x 2 days. In the ED workup included T 98.4, heart rate 97, BP 148/104, respiratory rate 15, 98% on room air, CBC with WBC 9.1, hemoglobin 11.2, platelet 454 without market shift, ESR 44, coags not obtained, BMP with BUN/creatinine 21/1.13, CRP 6.39, wound culture and blood culture obtained per ED. In the ED patient administered normal saline, morphine, vancomycin IV. Past Medical History Past Medical History (Chronic Problems): Chronic Problems (Last Reviewed 12/04/17 @ 01:53 by Sanjay Rhodes MD) Personal history of malignant neoplasm of other sites of lip, oral cavity, and pharynx (Chronic) Personal history of skin cancer (Chronic) Asthma (Chronic) Obesity (Chronic) Atrial enlargement, left (Chronic) BMI 40.0-44.9, adult (Chronic) Chronic diastolic (congestive) heart failure (Chronic) Diastolic dysfunction (Chronic) Sinus bradycardia (Chronic) Fatigue (Chronic) Long-term use of high-risk medication (Chronic) Bilateral lower extremity edema (Chronic) History of cardioversion (Chronic ~10/01/16) H/O right and left heart catheterization (Chronic ~05/15/15) H/O basal cell carcinoma excision (Chronic) Recurrent basal cell carcinoma following excision (Chronic) Persistent atrial fibrillation (Chronic) Chronic diastolic heart failure (Chronic) 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 (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) HTN (hypertension) (Chronic) HLD (hyperlipidemia) (Chronic) Diabetes mellitus (Chronic) COPD (chronic obstructive pulmonary disease) (Chronic) NICKOLAS (obstructive sleep apnea) (Chronic) Morbid obesity (Chronic) Basal cell carcinoma of face (Chronic) Left face-has had 2 surgeries so far the first in February of 2015 Medical History: Medical History (Last Reviewed 12/04/17 @ 01:53 by Sanjay Rhodes MD) Asthma (Chronic) J45.909 Obesity (Chronic) E66.9 Atrial enlargement, left (Chronic) I51.7 BMI 40.0-44.9, adult (Chronic) Z68.41 History of syncope (Acute) Z87.898 Chronic diastolic (congestive) heart failure (Chronic) I50.32 Diastolic dysfunction (Chronic) I51.9 Sinus bradycardia (Chronic) R00.1 Fatigue (Chronic) R53.83 Long-term use of high-risk medication (Chronic) Z79.899 Syncope (Acute) R55 Bilateral lower extremity edema (Chronic) R60.0 Recurrent basal cell carcinoma following excision (Chronic) C44.91 Persistent atrial fibrillation (Chronic) I48.1 Chronic diastolic heart failure (Chronic) I50.32 assisted (current) use of anticoagulants (Chronic) Z79.01 HTN (hypertension) (Chronic) I10 HLD (hyperlipidemia) (Chronic) E78.5 Diabetes mellitus (Chronic) E11.9 COPD (chronic obstructive pulmonary disease) (Chronic) J44.9 NICKOLAS (obstructive sleep apnea) (Chronic) G47.33 Morbid obesity (Chronic) E66.01 Basal cell carcinoma of face (Chronic) C44.310 Left face-has had 2 surgeries so far the first in February of 2015 Allergies ampicillin Allergy (Severe, Verified 12/18/17 19:41) Anaphylaxis hydrocodone bitartrate [From Vicodin] Allergy (Severe, Verified 12/18/17 19:41) Itching Penicillins Allergy (Severe, Verified 12/18/17 19:41) Anaphylaxis clarithromycin [From Biaxin] Allergy (Verified 12/18/17 19:41) Rash Red and itchy venom-honey bee [bee venom (honey bee)] Allergy (Verified 12/18/17 19:41) Nausea/Vom/Diarrhea Home Medications: Ambulatory Orders Medication Instructions Recorded Calcium Carbonate [Calcium] 500 mg PO BID 04/13/15 Diazepam [Valium] 10 mg PO TID 04/13/15 Metformin HCl [Glucophage] 1,000 mg PO QHS 04/13/15 Metformin HCl [Glucophage] 500 mg PO BREAKFAST 04/13/15 Omeprazole [Prilosec] 40 mg PO DAILY 04/13/15 traZODone [Desyrel] 50 mg PO QHS 04/13/15 Aspirin [Aspirin, Baby] 81 mg PO DAILY@0800 tab.chew 01/29/16 Tizanidine HCl [Zanaflex] 2 mg PO TID 05/13/15 Oxycodone HCl/Acetaminophen 7.5 mg PO TID 07/20/16 [Percocet 10-325 mg Tablet] Albuterol Inhaler [Ventolin Hfa] 2 puff INHALATION Q4H PRN PRN #1 08/14/16 inhaler Cetirizine HCl [Zyrtec] 10 mg PO DAILY #30 cap 08/18/16 Ferrous Sulfate 325 mg PO DAILY@0800 #30 tab 08/18/16 Gabapentin [Neurontin] 600 mg PO TID 01/26/17 atorvastatin 20 mg tablet 20 mg PO QHS tab 03/09/17 lisinopril 20 mg tablet 20 mg PO QDAY 03/09/17 flecainide 150 mg tablet 150 mg PO Q12H #180 tab 04/18/17 insulin NPH isophane U- 100 human 18 unit SC QPM 04/18/17 100 unit/mL subcutaneous suspension insulin lispro (U- 100) 100 24 unit SC QAM 04/18/17 unit/mL subcutaneous solution amlodipine 5 mg tablet 5 mg PO QDAY #90 tab 06/27/17 Furosemide 40 mg PO TID 08/03/17 Insulin Lispro [Humalog] 10 unit SC LUNCH 08/03/17 Insulin Lispro [Humalog] 15 unit SQ DINNER 08/03/17 Insulin NPH Human [Humulin N Pen] 10 units SC DAILY@0730 08/03/17 metolazone 2.5 mg tablet 2.5 mg PO .COMPLEX #10 tab 08/05/17 potassium chloride ER 20 mEq 40 meq PO QDAY #60 tab 08/17/17 tablet,extended release(part/cryst) warfarin 10 mg tablet 10 mg PO SUMOFRSA #30 tab 10/03/17 warfarin 7.5 mg tablet 7.5 mg PO WETH #30 tab 10/03/17 carvedilol 6.25 mg tablet 6.25 mg PO BID #60 tab 10/20/17 Biotin 1 tab PO DAILY 11/18/17 Diphenoxylate/Atrop [Lomotil] 1 tab PO Q6H PRN PRN 11/18/17 Folic Acid 0.8 mg PO DAILY 11/18/17 Ipratropium [place] 0.06% 2 spray NASAL BID 11/18/17 [ATROVENT NASAL SPRAY] Vitamin B12 2,000 unit PO DAILY 11/18/17 Cephalexin [Keflex] 500 mg PO Q8 #21 cap 12/10/17 Doxycycline 100 mg PO BID #14 cap 12/10/17 Surgical History: Surgical History (Last Reviewed 12/04/17 @ 01:53 by Sanjay Rhodes MD) History of facial surgery (Resolved) Z98.890 History of tonsillectomy (Resolved) Z98.890, Z90.89 History of bilateral knee replacement (Resolved) Z98.890, Z96.653 History of cataract extraction (Resolved) Z98.49 History of cardioversion (Chronic) Onset Date: ~10/01/16 Z98.890 H/O right and left heart catheterization (Chronic) Onset Date: ~05/15/15 Z98.890 H/O basal cell carcinoma excision (Chronic) Z98.890, Z85.828 Surgical History: total knee arthroplasty - Bilateral, tonsillectomy, - - Surgeries to the left face for basal cell carcinoma involving the left lower eyelid and then plastic repair, recent 11/2017 surgical interventions w/ I+D MRSA abscess, partial ostectomy anterior mandible. 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 Lives: Alone Smoking Status: Never smoker Tobacco Use: Non-smoker Alcohol: None Drugs: None - *Family History Paternal Family History: Family History (Last Reviewed 10/25/17 @ 09:00 by Selina Richards) Mother Hypertension Diabetes Father Heart disease Hypertension Diabetes Sister Hypertension Brother Diabetes History Items: Cancer, Diabetes, Hypertension Maternal Family History: Family History (Last Reviewed 10/25/17 @ 09:00 by Selina Richards) Mother Hypertension Diabetes Father Heart disease Hypertension Diabetes Sister Hypertension Brother Diabetes History Items: Heart Disease, Hypertension Sibling Family History: Family History (Last Reviewed 10/25/17 @ 09:00 by Selina Richards) Mother Hypertension Diabetes Father Heart disease Hypertension Diabetes Sister Hypertension Brother Diabetes History Items: Heart Disease Review of Systems Constitutional: Reports: Anorexia, Chills, Malaise, Weakness, Fatigue. Denies: Fever, Weight Change HEENT: Reports: - - Facial surgical site w/ purulent drainage, foul smelling., - - Acute on chronic facial pain.. Denies: Head Aches, Sinus Congestion, Sinus Drainage Cardiovascular: Denies: Chest Pain, Palpitations Respiratory: Reports: Shortness of breath upon exertion. Denies: Cough, Shortness of breath at rest, Sputum production Gastrointestinal: Reports: Nausea, Vomiting. Denies: Abdominal Pain Genitourinary: Denies: Dysuria Musculoskeletal: Reports: Back Pain. Denies: Joint Pain, Joint Tenderness Skin: Reports: Skin Changes, Wounds, - - Facial surgical site w/ purulent drainage, foul smelling.. Denies: Rash Neurological: Denies: Numbness, Tingling, Focal weakness Psychiatric: Reports: Anxiety, Depression. Denies: Homicidal Ideations, Suicidal Ideations Hematologic/ Lymphatic: Reports: Anemia, Easy Bruising, Easy Bleeding VTE Information - Inpt Only VTE Present on Admission: No VTE Mechan Device Prophylaxis: SCD's VTE Pharm Prophylaxis ordered?: No Reason prophylaxis not ordered:: Treatment Not Indicated Subjective: Seated upright in the ED bed, fatigued appearing, room w/ obvious foul odor. Objective: Physical Examination: General: awake, alert, oriented x 3 and cooperative, seated upright in bed in no apparent distress, notes feeling poorly, fatigued appearance. Skin: normal color, turgor, no icterus, cyanosis except notable facial scarring, recent I+D w/ excision w/ notable facial surgical site with purulent yellow and brown foul smelling drainage, dusky margins. HEENT: AT/NC, EOMI, PERRLA, moderately dry MM, no carotid bruits or JVD noted; however, difficult assessment secondary to habitus, see skin for chin R sided to midline surgical site. Lungs: Diminished BS BL, > bases, moderate effort, no rales, ronchi or wheezing. Heart: Regular rate and rhythm; no gallop, rub audible. Abdomen: soft, morbidly obese, NTTP, ND, normal BS, no HSM; however, habitus makes examination difficult. Extremities: no cyanosis, clubbing, or LE edema. Neurological: patient awake, alert, oriented x 3; cognitive function intact; pupils equally reactive to light and accomodation; cranial nerves II-XII grossly normal, moving all 4 extremities, no focal deficits, strength moderately to severely globally decreased secondary to acute presentation, complicated by habitus. Psychiatric: affect appears fatigued, no acute evidence of depressive or anxiety feelings. - Physical Exam Vital Signs Temp Pulse Resp BP Pulse Ox 98.4 F 100 20 H 139/83 H 95 12/18/17 19:25 12/18/17 22:04 12/18/17 22:04 12/18/17 22:04 12/18/17 22:04 Oxygen Delivery Method Room Air Weight: 237 lb 7.005 oz Body Mass Index (BMI) 42.0 Finger Stick Blood Glucose 117 Laboratory Tests Past 24 Hrs 12/18/17 12/18/17 12/18/17 20:15 20:15 20:15 WBC 9.1 RBC 3.89 L Hgb 11.2 L Hct 34.5 L MCV 88.7 MCH 28.8 MCHC 32.5 RDW 14.9 H RDW Differential 48.0 H Plt Count 454 H MPV 11.9 Immature Gran % (Auto) 0.200 Neut % (Auto) 75.7 H Lymph % (Auto) 14.2 L Hall % (Auto) 7.2 Eos % (Auto) 1.8 Baso % (Auto) 0.9 Absolute Neuts (auto) 6.9 Absolute Lymphs (auto) 1.29 Total Counted Not Reportable Nucleated RBC % 5.0 Differential Comment SCANNED Diff Path Review May foll ESR 44 H Absolute Retic 0.46 PT Cancelled INR Cancelled Sodium 140 Potassium 4.8 Chloride 105 Carbon Dioxide 29.0 Anion Gap 6 BUN 21 H Creatinine 1.13 H Estim Creat Clear Calc 38.87 Est GFR (MDRD) Af Amer 61 Est GFR (MDRD) Non-Af 51 L BUN/Creatinine Ratio 18.6 Glucose 95 Calcium 8.4 L C-React Prot Ext Range 6.39 H Assessment/Plan All Active Problems (Last Reviewed 12/04/17 @ 01:53 by Sanjay Rhodes MD) Osteomyelitis of mandible (Acute) Abscess of chin (Acute) Methicillin resistant Staphylococcus aureus infection (Acute) Facial cellulitis (Acute) History of facial surgery (Resolved) History of tonsillectomy (Resolved) History of bilateral knee replacement (Resolved) History of cataract extraction (Resolved) History of syncope (Acute) Syncope (Acute) Acute asthmatic bronchitis (Resolved) Acute exacerbation of CHF (congestive heart failure) (Resolved) Atrial fibrillation with RVR (Resolved) Paroxysmal A-fib (Resolved) SOB (shortness of breath) (Resolved) The patient is a 67 y/o F w/ PMHx: CKD stage III, Fe deficiency anemia, Diabetes mellitus type II w/ Neuropathy, HTN, HLD, Anxiety and Depression, NICKOLAS, PAF, Diastolic CHF, Morbid Obesity, Chronic COPD, Hx Basal Cell CA and 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 ED on 12/18/17 with increased yellow and brown foul smelling drainage, ruptured loculations opened upon recent packing, ongoing severe pain, chills as well as nausea and emesis now x 2 days. (1) Acute on Chronic Facial Pain, Increased Purulent Drainage w/ Recent I+D MRSA, Haemophilus Parainfluenzae, Sphinomonas Paucimobilis, Prevotella Oralis Abscess, Anterior Mandible Osteomyelitis: Repeat Wound Cx per ID, noted recent increased purulent drainage. Increased ESR, CRP from prior (09/28/18 ESR 26, 09/28/17 CRP 13.50 so decreased from recent). Will admit to [facility], restart IV vanc and rocephin with repeat ID consultation, pending repeat ED Wound Cx, plan r epeat CBC in AM, continue elevation of head, monitor erythema outline with VS checks. Consultation w/ Dr. Soto given recent surgery. Wound RN consulted. (2) Diastolic CHF: ECHO 09/06/16 normal LV size, EF 70%, moderate CLVH, mild , mild TVI. Maintain on home coumadin, coreg, statin, lisinopril, lasix, metolazone regimen. (3) CKD stage III: Admission BUN/Cr 21/1.13, baseline Cr 1.2-1.4 over the last year, repeat BMP in AM. (4) Chronic COPD: ATC duonebs, PRN albuterol, HOB, IS parameters. (5) Paroxsymal atrial fibrillation: Continue regimen coreg, flecainide, coumadin, obtain INR level. (6) Diabetes mellitus type II: Hold oral home regimen, continued home insulin regimen, ADA diet, accu checks w/ ISS. (7) Anxiety and depression: Continued home diazepam, trazodone regimen. (8) Hyperlipidemia: Continued home statin regimen. (9) Hypertension: Continued home regimen including lasix, norvasc, Coreg, lisinopril, PRN labetaolol. (10) Morbid Obesity: Weight loss and lifestyle changes encouraged, nutrition consulted for education and teaching. (11) Fe Deficiency Anemia: Admission Hgb 11.2, stable, maintain on home Fe supplementation. (12) NICKOLAS: Unable to use CPAP q HS secondary to recent chin interventions, surgery. (13) GERD: PPI. (14) DVT Prophylaxis: SCDs, coumadin w/ INR trending. Code Visit Inpatient E&M: 37245 Init Hosp L3
[2017-12-18 23:21] VITALS: PULSE 105; BMI 42.0; BMI 42.1
[2017-12-18 23:26] VITALS: BP 143/105; PULSE 105; RESP 18; TEMP 36.6; O2SAT 97
[2017-12-18 23:51] LABS: Bedside Glucose 137 mg/dL (70-110)
[2017-12-19] VITALS (7 sets, daily range): BP systolic 95–148; BP diastolic 59–80; PULSE 53–90; RESP 16–20; TEMP 36.3–36.9; O2SAT 94–100
[2017-12-19 00:08] LABS: Magnesium 1.8 mg/dL (1.6-2.6)
[2017-12-19] MEDS: Morphine 2 MG/ML Syringe IV ×5 (00:13→18:55)
--- NOTE | 2017-12-19 01:02 | PCM.RX.CS ---
Consult Pharmacy has been consulted to manage selected antiobiotic: Vancomycin Type of Consult: New start Suspected Infection: Skin/Soft tissue Prior Doses of Antibiotics Received/Current Regimen: Medications Ceftriaxone Sodium 2 gm/ (Dextrose) 50 mls @ 100 mls/hr IV Q24 [facility] Last Admin: 12/19/17 00:13 Dose: 100 mls/hr Vancomycin HCl 1,250 mg/ (Sodium Chloride) 275 mls @ 167 mls/hr IV Q24H [facility] Labs: Sodium 140 mmol/L (136-145) 12/18/17 20:15 Potassium 4.8 mmol/L (3.5-5.1) 12/18/17 20:15 Chloride 105 mmol/L (98-107) 12/18/17 20:15 Carbon Dioxide 29.0 mmol/L (21.0-32.0) 12/18/17 20:15 Anion Gap 6 (5-15) 12/18/17 20:15 BUN 21 mg/dL (7-18) H 12/18/17 20:15 Creatinine 1.13 mg/dL (0.55-1.02) H 12/18/17 20:15 Est GFR (MDRD) Af Amer 61 mL/min (>60) 12/18/17 20:15 Est GFR (MDRD) Non-Af 51 mL/min (>60) L 12/18/17 20:15 BUN/Creatinine Ratio 18.6 RATIO (10-20) 12/18/17 20:15 Glucose 95 mg/dL (74-106) 12/18/17 20:15 Weight used for dosin.7 kg Estimated Creatinine Clearance: 38.87 Goal Trough: 10-15 mcg/mL Pharmacy Plan for Drug Dosing: Pharmacy Service will continue to monitor and adjust dosing as required. Medications Vancomycin HCl 1,250 mg/ (Sodium Chloride) 275 mls @ 167 mls/hr IV Q24H [facility] Follow-Up Labs: Trough Vancomycin Labs to be done on [date and time ordered]: 12/20 @ 1137
--- NOTE | 2017-12-19 01:05 | PHA.PHARE_ITS ---
Consult Pharmacy has been consulted to manage selected antiobiotic: Vancomycin Type of Consult: New start Suspected Infection: Skin/Soft tissue Prior Doses of Antibiotics Received/Current Regimen: Medications Ceftriaxone Sodium 2 gm/ (Dextrose) 50 mls @ 100 mls/hr IV Q24 [facility] Last Admin: 12/19/17 00:13 Dose: 100 mls/hr Vancomycin HCl 1,250 mg/ (Sodium Chloride) 275 mls @ 167 mls/hr IV Q24H [facility] Labs: Sodium 140 mmol/L (136-145) 12/18/17 20:15 Potassium 4.8 mmol/L (3.5-5.1) 12/18/17 20:15 Chloride 105 mmol/L (98-107) 12/18/17 20:15 Carbon Dioxide 29.0 mmol/L (21.0-32.0) 12/18/17 20:15 Anion Gap 6 (5-15) 12/18/17 20:15 BUN 21 mg/dL (7-18) H 12/18/17 20:15 Creatinine 1.13 mg/dL (0.55-1.02) H 12/18/17 20:15 Est GFR (MDRD) Af Amer 61 mL/min (>60) 12/18/17 20:15 Est GFR (MDRD) Non-Af 51 mL/min (>60) L 12/18/17 20:15 BUN/Creatinine Ratio 18.6 RATIO (10-20) 12/18/17 20:15 Glucose 95 mg/dL (74-106) 12/18/17 20:15 Weight used for dosin.7 kg Estimated Creatinine Clearance: 38.87 Goal Trough: 10-15 mcg/mL Pharmacy Plan for Drug Dosing: Pharmacy Service will continue to monitor and adjust dosing as required. Medications Vancomycin HCl 1,250 mg/ (Sodium Chloride) 275 mls @ 167 mls/hr IV Q24H [facility] Follow-Up Labs: Trough Vancomycin Labs to be done on [date and time ordered]: 12/20 @ 8793
[2017-12-19] MEDS: Flecainide 150 MG Tablet PO ×3 (02:03→23:03)
[2017-12-19] MEDS: CLARIFY ORDER 1 EACH NOTE (02:06)
[2017-12-19] MEDS: Gabapentin 600 MG Tablet PO ×3 (06:43→23:03)
[2017-12-19] MEDS: tiZANidine HCl 2 MG Tablet PO ×3 (06:43→23:03)
[2017-12-19] MEDS: diazePAM 5 MG Tablet 10 MG PO ×3 (06:43→23:03)
[2017-12-19] MEDS: Furosemide 40 MG Tablet 60 MG PO ×3 (06:43→23:02)
[2017-12-19] MEDS: oxyCODONE 5 MG Tablet 10 MG PO ×3 (06:53→23:03)
[2017-12-19 07:06] LABS: Bedside Glucose 127 mg/dL (70-110)
[2017-12-19 07:12] LABS: Anion Gap 11 (5-15); BUN 19 mg/dL (7-18); BUN/Creat Ratio 17.9 RATIO (10-20); Calcium,Total 8.2 mg/dL (8.5-10.1); Chloride 110 mmol/L (98-107); Creatinine, Serum 1.06 mg/dL (0.55-1.02); EST Glomerular Filtration Rate 55 mL/min (>60); Est Glom Filt Rate - Afr Amer 66 mL/min (>60); Estimated Creatinine Clearance 41.44 ml/min; Glucose 111 mg/dL (74-106); Potassium 3.9 mmol/L (3.5-5.1); Sodium Level 142 mmol/L (136-145)
[2017-12-19 07:30] LABS: International Normalized Ratio 1.8; Prothrombin Time (Protime)PT. 20.6 SECONDS (11.7-14.9)
[2017-12-19] MEDS: Ipratropium/Albuterol Sulfate 3 ML AMPUL.NEB INHALATION ×3 (07:46→19:05)
[2017-12-19 07:47] LABS: Absolute Lymphocyte Count 1.42 X10^3/ul (0.83-4.51); Absolute Neutrophil Count 4.1 X10^3/uL (2.0-7.7); Basophil# 0.04 X10^3/uL; Basophil% 0.6 % (0-1); Eosinophil# 0.26 X10^3/uL; Eosinophils% 4.1 % (0-5); Hematocrit 33.4 % (37-47); Hemoglobin 10.2 g/dl (12.0-15.0); Lymphocyte # 1.42 X10^3/ul (4.0); Lymphocyte % 22.3 % (19-41); Mean Corp Hgb Conc 30.5 g/gl (32-36); Mean Corpuscular Hgb 27.7 pg (27.0-32.0); Mean Corpuscular Volume 90.8 fL (81-99); Mean Platelet Vol. 10.9 fl (6.2-12.0); Monocyte# 0.59 X10^3/uL; Monocyte% 9.2 % (0-10); Neutrophil # 4.06 X10^3/uL (2.7-7.7); Neutrophil % 63.6 % (47-70); Platelet Count 294 K/mm3 (150-450); RBC Distribution Width CV 14.8 % (11.6-14.6); RBC Distribution Width SD 48.9 fl (35.1-43.9); Red Blood Count 3.68 M/mm3 (4.2-5.4); White Blood Count 6.4 K/mm3 (4.4-11.0)
[2017-12-19 07:48] LABS: POSITIVE COUNT NO; POSITIVE DIFFERENTIAL NO; POSITIVE MORPHOLOGY NO
[2017-12-19] MEDS: Loratadine 10 MG Tablet PO (08:42)
[2017-12-19] MEDS: Folic Acid 1 MG Tablet PO (08:42)
[2017-12-19] MEDS: Calcium (Elemental) 500 MG Tablet PO ×2 (08:43→23:03)
[2017-12-19] MEDS: Aspirin 81 MG TAB.CHEW PO (08:43)
[2017-12-19] MEDS: Ferrous Sulfate 325 MG Tablet PO (08:43)
[2017-12-19] MEDS: Cyanocobalamin 500 MCG Tablet 2000 MCG PO (08:44)
[2017-12-19] MEDS: Pantoprazole Sodium 40 MG Tablet PO (08:44)
[2017-12-19] MEDS: Ipratropium Bromide 0.06% NASAL SPRAY 2 SPRAY NASAL ×2 (08:47→23:05)
--- NOTE | 2017-12-19 09:35 | PCM.PN.HOSP ---
Subjective: Feels a little better, still with pain in her chin. She is tolerating PO and pain is controlled Vitals/I&O's: Vital Signs Temp Pulse Resp BP Pulse Ox 98.0 F 72 20 H 148/72 H 96 12/19/17 05:26 12/19/17 07:47 12/19/17 07:47 12/19/17 05:26 12/19/17 05:26 Oxygen Delivery Method Room Air Weight: 237 lb 7.005 oz Body Mass Index (BMI) 42.0 Finger Stick Blood Glucose 117 Intake and Output for Last 24 Hours 12/17/17 12/18/17 12/19/17 23:59 23:59 23:59 Intake Total 1215 / 1215 Balance 1215 / 1215 General: Alert, Oriented x3, Cooperative, No apparent distress HEENT: Atraumatic, EOMI, Normocephalic Oral: Moist Mucosa Neck: Supple, No JVD Lungs: Clear to auscultation, Normal air movement, No rhonchi, No wheeze, No rales Cardiovascular: Regular rate, Regular Rhythm, Normal S1, Normal S2, No murmurs Abdomen: Soft, Non Tender, Non-Distended, No Hepato-splenomegaly Skin: - - 3 cm wound on her chin, some sloughing is present Psych/Mental Status: Normal Affect, Appropriate Laboratory Results 12/18/17 20:15: WBC 9.1, RBC 3.89 L, Hgb 11.2 L, Hct 34.5 L, MCV 88.7, MCH 28.8, MCHC 32.5, RDW 14.9 H, RDW Differential 48.0 H, Plt Count 454 H, MPV 11.9, Immature Gran % (Auto) 0.200, Neut % (Auto) 75.7 H, Lymph % (Auto) 14.2 L, [place] % (Auto) 7.2, Eos % (Auto) 1.8, Baso % (Auto) 0.9, Absolute Neuts (auto) 6.9, Absolute Lymphs (auto) 1.29, Total Counted Not Reportable, Nucleated RBC % 5.0, Differential Comment SCANNED, Diff Path Review July, ESR 44 H, Absolute Retic 0.46 12/18/17 20:15: Sodium 140, Potassium 4.8, Chloride 105, Carbon Dioxide 29.0, Anion Gap 6, BUN 21 H, Creatinine 1.13 H, Estim Creat Clear Calc 38.87, Est GFR (MDRD) Af Amer 61, Est GFR (MDRD) Non-Af 51 L, BUN/Creatinine Ratio 18.6, Glucose 95, Calcium 8.4 L, C-React Prot Ext Range 6.39 H 12/18/17 20:15: PT Cancelled, INR Cancelled 12/18/17 23:45: Magnesium 1.8 12/18/17 23:45: POC Glucose 137 H 12/19/17 05:54: Sodium 142, Potassium 3.9, Chloride 110 H, Carbon Dioxide 21.0, Anion Gap 11, BUN 19 H, Creatinine 1.06 H, Estim Creat Clear Calc 41.44, Est GFR (MDRD) Af Amer 66, Est GFR (MDRD) Non-Af 55 L, BUN/Creatinine Ratio 17.9, Glucose 111 H, Calcium 8.2 L 12/19/17 06:33: POC Glucose 127 H 12/19/17 07:10: WBC 6.4, RBC 3.68 L, Hgb 10.2 L, Hct 33.4 L, MCV 90.8, MCH 27.7, MCHC 30.5 L, RDW 14.8 H, RDW Differential 48.9 H, Plt Count 294, MPV 10.9, Immature Gran % (Auto) 0.200, Neut % (Auto) 63.6, Lymph % (Auto) 22.3, [place] % (Auto) 9.2, Eos % (Auto) 4.1, Baso % (Auto) 0.6, Absolute Neuts (auto) 4.1, Absolute Lymphs (auto) 1.42, Total Counted Not Reportable 12/19/17 07:10: PT 20.6 H, INR 1.8 Current Medications Acetaminophen (Tylenol) 650 mg PO Q6H PRN PRN PRN Reason: Mild Pain (scale 0-3)/T>100.7 Al Hydroxide/Mg Hydroxide (Mylanta Ii) 30 ml PO Q6H PRN PRN PRN Reason: Gastric burning Albuterol Sulfate (Ventolin Aerosols) 2.5 mg INHALATION Q2H PRN PRN PRN Reason: dyspnea, wheezing Albuterol/Ipratropium (Duoneb) 3 ml INHALATION Q6HWA.RT AMIE Last Admin: 12/19/17 07:46 Dose: 3 ml Amlodipine Besylate (Norvasc) 5 mg PO DAILY [facility] Aspirin (Aspirin, Baby) 81 mg PO DAILY@0800 [facility] Last Admin: 12/19/17 08:43 Dose: 81 mg Atorvastatin Calcium (Lipitor) 20 mg PO QHS [facility] Calcium Carbonate (Os-Kirill 500) 500 mg PO BID [facility] Last Admin: 12/19/17 08:43 Dose: 500 mg Carvedilol (Coreg) 6.25 mg PO BID [facility] Cyanocobalamin (Vitamin B12) 2,000 mcg PO DAILY [facility] Last Admin: 12/19/17 08:44 Dose: 2,000 mcg Dextrose (D50w Syringe) 0 gm IV X1 PRN; Protocol PRN Reason: Hypoglycemia Diazepam (Valium) 10 mg PO TID [facility] Last Admin: 12/19/17 06:43 Dose: 10 mg Diphenoxylate HCl/Atropine (Lomotil) 1 tablet PO Q6H PRN PRN PRN Reason: Diarrhea Ferrous Sulfate (Ferrous Sulfate) 325 mg PO DAILY@0800 [facility] Last Admin: 12/19/17 08:43 Dose: 325 mg Flecainide Acetate (Tambocor) 150 mg PO Q12 [facility] Last Admin: 12/19/17 08:43 Dose: 150 mg Folic Acid (Folic Acid) 1 mg PO DAILY@0800 [facility] Last Admin: 12/19/17 08:42 Dose: 1 mg Furosemide (Lasix) 60 mg PO TID [facility] Last Admin: 12/19/17 06:43 Dose: 60 mg Gabapentin (Neurontin) 600 mg PO TID [facility] Last Admin: 12/19/17 06:43 Dose: 600 mg Glucagon () 1 mg IM .X1 PRN PRN Reason: Hypoglycemia Vancomycin IV Pharmacy to Dose (1 ea/ Sodium Chloride) 500 mls @ 250 mls/hr IV X1 PRN; Protocol PRN Reason: Rx to Dose Ceftriaxone Sodium 2 gm/ (Dextrose) 50 mls @ 100 mls/hr IV Q24 [facility] Last Admin: 12/19/17 09:10 Dose: 100 mls/hr Sodium Chloride () 250 mls @ 15 mls/hr IV .[id number] PRN PRN Reason: SALINE FLUSH Vancomycin HCl 1,250 mg/ (Sodium Chloride) 275 mls @ 167 mls/hr IV Q24H [facility] Influenza Virus Vaccine Quadrival (Fluarix/Fluzone) 0.5 ml IM .ONCE ONE Stop: 12/19/17 10:01 Last Admin: 12/19/17 08:47 Dose: 0.5 ml Insulin Human Lispro (Humalog Kwikpen (Bkc)) 10 unit SC LUNCH [facility] Insulin Human Lispro (Humalog Kwikpen (Bkc)) 0 unit SC ACHS [facility]; Protocol Last Admin: 12/19/17 06:38 Dose: Not Given Insulin Human Lispro (Humalog Kwikpen (Bkc)) 15 unit SC DINNER [facility] Insulin Human Lispro (Humalog Kwikpen (Bkc)) 24 unit SC BREAKFAST [facility] Insulin Human NPH (Humulin N (Bkc)) 18 units SC QPM [facility] Insulin Human NPH (Humulin N (Bkc)) 10 units SC DAILY@0730 [facility] Ipratropium [place] (Atrovent Nasal [place] (G)) 2 spray NASAL BID [facility] Last Admin: 12/19/17 08:47 Dose: 2 spray Lisinopril (Zestril) 20 mg PO DAILY [facility] Loratadine (Claritin) 10 mg PO DAILY [facility] Last Admin: 12/19/17 08:42 Dose: 10 mg Magnesium Hydroxide (Milk Of Magnesia) 30 ml PO DAILY PRN PRN PRN Reason: Constipation Morphine Sulfate () 1 - 2 mg IV Q4H PRN PRN PRN Reason: Moderate Pain (pain scale 4-5) Morphine Sulfate () 2 - 4 mg IV Q3H PRN PRN PRN Reason: Severe Pain (pain scale 6-10) Last Admin: 12/19/17 08:40 Dose: 4 mg Ondansetron HCl (Zofran) 4 mg IV Q8H PRN PRN PRN Reason: NAUSEA Oxycodone HCl (Oxyir) 10 mg PO Q4H PRN PRN PRN Reason: Moderate Pain (pain scale 4-5) Last Admin: 12/19/17 06:53 Dose: 10 mg Pantoprazole Sodium (Protonix) 40 mg PO DAILY [facility] Last Admin: 12/19/17 08:44 Dose: 40 mg Potassium Chloride (K-Dur) 40 meq PO DAILY [facility] Last Admin: 12/19/17 08:43 Dose: 40 meq Promethazine HCl (Phenergan) 12.5 mg IV Q6H PRN PRN PRN Reason: NAUSEA/VOMITING Sodium Chloride () 5 - 30 ml IV UD PRN PRN Reason: SALINE FLUSH Tizanidine HCl (Zanaflex) 2 mg PO TID [facility] Last Admin: 12/19/17 06:43 Dose: 2 mg Trazodone HCl (Desyrel) 50 mg PO QHS [facility] Warfarin Sodium (Coumadin (Pbkc)) 7.5 mg PO TuWeTh@1700 [facility]; Protocol Warfarin Sodium (Coumadin (Pbkc)) 10 mg PO SuMoFrSa@1700 [facility] Medical Necessity - Tobacco Use Smoking Status: Never smoker Tobacco Use: Non-smoker Assessment/Plan All Active Problems (Last Reviewed 12/04/17 @ 01:53 by Sanjay Rhodes MD) Osteomyelitis of mandible (Acute) Abscess of chin (Acute) Methicillin resistant Staphylococcus aureus infection (Acute) Facial cellulitis (Acute) History of facial surgery (Resolved) History of tonsillectomy (Resolved) History of bilateral knee replacement (Resolved) History of cataract extraction (Resolved) History of syncope (Acute) Syncope (Acute) Acute asthmatic bronchitis (Resolved) Acute exacerbation of CHF (congestive heart failure) (Resolved) Atrial fibrillation with RVR (Resolved) Paroxysmal A-fib (Resolved) SOB (shortness of breath) (Resolved) 1. 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 Chronic diastolic CHF/CKD3/A-fib/HTN/HLD/NICKOLAS - LV EF is 70% - c/w statin, norvasc, lisinopril, lasix, metolazone, coreg and coumadin - INR today 1.8, c/w felcainide for the afib - Cr is at baseline currently, will continue to monitor - given the wound, CPAP is not feasable, can use nocturnal O2 if necessary 3. Chronic COPD - stable - c/w home inhalers 4. DM2 - Hold home oral medications, c/w home insulin - c/w SSI, BG 127 this morning 5. GERD - stable - c/w PPI 6. Anxiety/Depression - stable - c/w home diazepam and trazodone 7. Iron deficiency anemia - H/H is stable - c/w home iron DVT: SCDs and Coumadin Diet: Calorie controlled Code Visit Inpatient E&M: 95596 Subs Hosp L2
--- NOTE | 2017-12-19 09:41 | NURSING ---
wound photo: chin
--- NOTE | 2017-12-19 09:48 | PN_ITS ---
Subjective: Feels a little better, still with pain in her chin. She is tolerating PO and pain is controlled Vitals/I&O's: Vital Signs Temp Pulse Resp BP Pulse Ox 98.0 F 72 20 H 148/72 H 96 12/19/17 05:26 12/19/17 07:47 12/19/17 07:47 12/19/17 05:26 12/19/17 05:26 Oxygen Delivery Method Room Air Weight: 237 lb 7.005 oz Body Mass Index (BMI) 42.0 Finger Stick Blood Glucose 117 Intake and Output for Last 24 Hours 12/17/17 12/18/17 12/19/17 23:59 23:59 23:59 Intake Total 1215 / 1215 Balance 1215 / 1215 General: Alert, Oriented x3, Cooperative, No apparent distress HEENT: Atraumatic, EOMI, Normocephalic Oral: Moist Mucosa Neck: Supple, No JVD Lungs: Clear to auscultation, Normal air movement, No rhonchi, No wheeze, No rales Cardiovascular: Regular rate, Regular Rhythm, Normal S1, Normal S2, No murmurs Abdomen: Soft, Non Tender, Non-Distended, No Hepato-splenomegaly Skin: - - 3 cm wound on her chin, some sloughing is present Psych/Mental Status: Normal Affect, Appropriate Laboratory Results 12/18/17 20:15: WBC 9.1, RBC 3.89 L, Hgb 11.2 L, Hct 34.5 L, MCV 88.7, MCH 28.8, MCHC 32.5, RDW 14.9 H, RDW Differential 48.0 H, Plt Count 454 H, MPV 11.9, Immature Gran % (Auto) 0.200, Neut % (Auto) 75.7 H, Lymph % (Auto) 14.2 L, [place] % (Auto) 7.2, Eos % (Auto) 1.8, Baso % (Auto) 0.9, Absolute Neuts (auto) 6.9, Absolute Lymphs (auto) 1.29, Total Counted Not Reportable, Nucleated RBC % 5.0, Differential Comment SCANNED, Diff Path Review July, ESR 44 H, Absolute Retic 0.46 12/18/17 20:15: Sodium 140, Potassium 4.8, Chloride 105, Carbon Dioxide 29.0, Anion Gap 6, BUN 21 H, Creatinine 1.13 H, Estim Creat Clear Calc 38.87, Est GFR (MDRD) Af Amer 61, Est GFR (MDRD) Non-Af 51 L, BUN/Creatinine Ratio 18.6, Glucose 95, Calcium 8.4 L, C-React Prot Ext Range 6.39 H 12/18/17 20:15: PT Cancelled, INR Cancelled 12/18/17 23:45: Magnesium 1.8 12/18/17 23:45: POC Glucose 137 H 12/19/17 05:54: Sodium 142, Potassium 3.9, Chloride 110 H, Carbon Dioxide 21.0, Anion Gap 11, BUN 19 H, Creatinine 1.06 H, Estim Creat Clear Calc 41.44, Est GFR (MDRD) Af Amer 66, Est GFR (MDRD) Non-Af 55 L, BUN/Creatinine Ratio 17.9, Glucose 111 H, Calcium 8.2 L 12/19/17 06:33: POC Glucose 127 H 12/19/17 07:10: WBC 6.4, RBC 3.68 L, Hgb 10.2 L, Hct 33.4 L, MCV 90.8, MCH 27.7, MCHC 30.5 L, RDW 14.8 H, RDW Differential 48.9 H, Plt Count 294, MPV 10.9, Immature Gran % (Auto) 0.200, Neut % (Auto) 63.6, Lymph % (Auto) 22.3, [place] % (Auto) 9.2, Eos % (Auto) 4.1, Baso % (Auto) 0.6, Absolute Neuts (auto) 4.1, Absolute Lymphs (auto) 1.42, Total Counted Not Reportable 12/19/17 07:10: PT 20.6 H, INR 1.8 Current Medications Acetaminophen (Tylenol) 650 mg PO Q6H PRN PRN PRN Reason: Mild Pain (scale 0-3)/T>100.7 Al Hydroxide/Mg Hydroxide (Mylanta Ii) 30 ml PO Q6H PRN PRN PRN Reason: Gastric burning Albuterol Sulfate (Ventolin Aerosols) 2.5 mg INHALATION Q2H PRN PRN PRN Reason: dyspnea, wheezing Albuterol/Ipratropium (Duoneb) 3 ml INHALATION Q6HWA.RT AMIE Last Admin: 12/19/17 07:46 Dose: 3 ml Amlodipine Besylate (Norvasc) 5 mg PO DAILY [facility] Aspirin (Aspirin, Baby) 81 mg PO DAILY@0800 [facility] Last Admin: 12/19/17 08:43 Dose: 81 mg Atorvastatin Calcium (Lipitor) 20 mg PO QHS [facility] Calcium Carbonate (Os-Kirill 500) 500 mg PO BID [facility] Last Admin: 12/19/17 08:43 Dose: 500 mg Carvedilol (Coreg) 6.25 mg PO BID [facility] Cyanocobalamin (Vitamin B12) 2,000 mcg PO DAILY [facility] Last Admin: 12/19/17 08:44 Dose: 2,000 mcg Dextrose (D50w Syringe) 0 gm IV X1 PRN; Protocol PRN Reason: Hypoglycemia Diazepam (Valium) 10 mg PO TID [facility] Last Admin: 12/19/17 06:43 Dose: 10 mg Diphenoxylate HCl/Atropine (Lomotil) 1 tablet PO Q6H PRN PRN PRN Reason: Diarrhea Ferrous Sulfate (Ferrous Sulfate) 325 mg PO DAILY@0800 [facility] Last Admin: 12/19/17 08:43 Dose: 325 mg Flecainide Acetate (Tambocor) 150 mg PO Q12 [facility] Last Admin: 12/19/17 08:43 Dose: 150 mg Folic Acid (Folic Acid) 1 mg PO DAILY@0800 [facility] Last Admin: 12/19/17 08:42 Dose: 1 mg Furosemide (Lasix) 60 mg PO TID [facility] Last Admin: 12/19/17 06:43 Dose: 60 mg Gabapentin (Neurontin) 600 mg PO TID [facility] Last Admin: 12/19/17 06:43 Dose: 600 mg Glucagon () 1 mg IM .X1 PRN PRN Reason: Hypoglycemia Vancomycin IV Pharmacy to Dose (1 ea/ Sodium Chloride) 500 mls @ 250 mls/hr IV X1 PRN; Protocol PRN Reason: Rx to Dose Ceftriaxone Sodium 2 gm/ (Dextrose) 50 mls @ 100 mls/hr IV Q24 [facility] Last Admin: 12/19/17 09:10 Dose: 100 mls/hr Sodium Chloride () 250 mls @ 15 mls/hr IV .[id number] PRN PRN Reason: SALINE FLUSH Vancomycin HCl 1,250 mg/ (Sodium Chloride) 275 mls @ 167 mls/hr IV Q24H [facility] Influenza Virus Vaccine Quadrival (Fluarix/Fluzone) 0.5 ml IM .ONCE ONE Stop: 12/19/17 10:01 Last Admin: 12/19/17 08:47 Dose: 0.5 ml Insulin Human Lispro (Humalog Kwikpen (Bkc)) 10 unit SC LUNCH [facility] Insulin Human Lispro (Humalog Kwikpen (Bkc)) 0 unit SC ACHS [facility]; Protocol Last Admin: 12/19/17 06:38 Dose: Not Given Insulin Human Lispro (Humalog Kwikpen (Bkc)) 15 unit SC DINNER [facility] Insulin Human Lispro (Humalog Kwikpen (Bkc)) 24 unit SC BREAKFAST [facility] Insulin Human NPH (Humulin N (Bkc)) 18 units SC QPM [facility] Insulin Human NPH (Humulin N (Bkc)) 10 units SC DAILY@0730 [facility] Ipratropium [place] (Atrovent Nasal [place] (G)) 2 spray NASAL BID [facility] Last Admin: 12/19/17 08:47 Dose: 2 spray Lisinopril (Zestril) 20 mg PO DAILY [facility] Loratadine (Claritin) 10 mg PO DAILY [facility] Last Admin: 12/19/17 08:42 Dose: 10 mg Magnesium Hydroxide (Milk Of Magnesia) 30 ml PO DAILY PRN PRN PRN Reason: Constipation Morphine Sulfate () 1 - 2 mg IV Q4H PRN PRN PRN Reason: Moderate Pain (pain scale 4-5) Morphine Sulfate () 2 - 4 mg IV Q3H PRN PRN PRN Reason: Severe Pain (pain scale 6-10) Last Admin: 12/19/17 08:40 Dose: 4 mg Ondansetron HCl (Zofran) 4 mg IV Q8H PRN PRN PRN Reason: NAUSEA Oxycodone HCl (Oxyir) 10 mg PO Q4H PRN PRN PRN Reason: Moderate Pain (pain scale 4-5) Last Admin: 12/19/17 06:53 Dose: 10 mg Pantoprazole Sodium (Protonix) 40 mg PO DAILY [facility] Last Admin: 12/19/17 08:44 Dose: 40 mg Potassium Chloride (K-Dur) 40 meq PO DAILY [facility] Last Admin: 12/19/17 08:43 Dose: 40 meq Promethazine HCl (Phenergan) 12.5 mg IV Q6H PRN PRN PRN Reason: NAUSEA/VOMITING Sodium Chloride () 5 - 30 ml IV UD PRN PRN Reason: SALINE FLUSH Tizanidine HCl (Zanaflex) 2 mg PO TID [facility] Last Admin: 12/19/17 06:43 Dose: 2 mg Trazodone HCl (Desyrel) 50 mg PO QHS [facility] Warfarin Sodium (Coumadin (Pbkc)) 7.5 mg PO TuWeTh@1700 [facility]; Protocol Warfarin Sodium (Coumadin (Pbkc)) 10 mg PO SuMoFrSa@1700 [facility] Medical Necessity - Tobacco Use Smoking Status: Never smoker Tobacco Use: Non-smoker Assessment/Plan All Active Problems (Last Reviewed 12/04/17 @ 01:53 by Sanjay Rhodes MD) Osteomyelitis of mandible (Acute) Abscess of chin (Acute) Methicillin resistant Staphylococcus aureus infection (Acute) Facial cellulitis (Acute) History of facial surgery (Resolved) History of tonsillectomy (Resolved) History of bilateral knee replacement (Resolved) History of cataract extraction (Resolved) History of syncope (Acute) Syncope (Acute) Acute asthmatic bronchitis (Resolved) Acute exacerbation of CHF (congestive heart failure) (Resolved) Atrial fibrillation with RVR (Resolved) Paroxysmal A-fib (Resolved) SOB (shortness of breath) (Resolved) 1. 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 Chronic diastolic CHF/CKD3/A-fib/HTN/HLD/NICKOLAS - LV EF is 70% - c/w statin, norvasc, lisinopril, lasix, metolazone, coreg and coumadin - INR today 1.8, c/w felcainide for the afib - Cr is at baseline currently, will continue to monitor - given the wound, CPAP is not feasable, can use nocturnal O2 if necessary 3. Chronic COPD - stable - c/w home inhalers 4. DM2 - Hold home oral medications, c/w home insulin - c/w SSI, BG 127 this morning 5. GERD - stable - c/w PPI 6. Anxiety/Depression - stable - c/w home diazepam and trazodone 7. Iron deficiency anemia - H/H is stable - c/w home iron DVT: SCDs and Coumadin Diet: Calorie controlled Code Visit Inpatient E&M: 68950 Subs Hosp L2
[2017-12-19] MEDS: Insulin Lispro 100 UNIT/ML INSULN.PEN 24 UNIT SC (10:03)
[2017-12-19] MEDS: Insulin NPH Human 100 UNITS/ML PEN 10 UNITS SC (10:04)
[2017-12-19] MEDS: amLODIPine 5 MG Tablet PO (10:08)
[2017-12-19] MEDS: Carvedilol 6.25 MG Tablet PO ×2 (10:08→23:02)
--- NOTE | 2017-12-19 10:36 | CASEMGMT ---
RN CM Readmission Note: Last admission: 12/03/17-12/10/17 Dx: Facial Cellulitis DC Disposition: Home with [facility]. Pt was opened for Home Health on 12/11/17 Readmission: 12/18/17 DC: Facial Cellulitis Intro role of CM to patient in room. Lenghty discussion with pt who states she was having difficulty with care needs @ home, dressing changes, meals and house cleaning. States she has friends living with me that were suppose to help, but they didn't. pt states her stepson drives her, but now doesn't have a license, yet continues to use her car. States her house is a mess, I have Orkin coming to take care of lice. Pt verbalized that she would like to consider going to SNF on dc. Pt visibly upset over home situation, stated more than once, I need more help. -RN SHIVANI asked if pt would like to speak with IZABELLA re: SNF, home situation. Pt states she would. Referral to IZABELLA Hassan made, updated on above.
--- NOTE | 2017-12-19 11:10 | CASEMGMT ---
JACK PARRISH Readmission Note: Last admission: 12/03/17-12/10/17 Dx: Facial Cellulitis DC Disposition: Home with [facility]. Pt was opened for Home Health on 12/11/17 Readmission: 12/18/17 DC: Facial Cellulitis Intro role of CM to patient in room. Lenghty discussion with pt who states she was having difficulty with care needs @ home, dressing changes, meals and house cleaning. States she has friends living with me that were suppose to help, but they didn't. pt states her stepson drives her, but now doesn't have a license, yet continues to use her car. States her house is a mess, I have Orkin coming to take care of mice. Pt verbalized that she would like to consider going to SNF on dc. Pt visibly upset over home situation, stated more than once, I need more help. -RN SHIVANI asked if pt would like to speak with IZABELLA re: SNF, home situation. Pt states she would. Referral to IZABELLA Hassan made, updated on above.
--- NOTE | 2017-12-19 11:10 | CASEMGMT ---
Addendum entered by Radha Martell 12/19/17 11:30: SW provided pt with list of in network facilities. Pt states that [facility], second choice would be [facility], and third choice would be [facility]. SW placed a call to referral line and left referral. SW waiting to hear if [facility]. Original Note: Social Work Note SW met with pt to discuss discharge planning. SW introduced self and role at [facility]. Pt is alert and orientated x3. Pt states that she lives in a home with two friends. Pt states that one of the friends she has raised since he was [age] years old. Pt states that her friends are supposed to help her with her care at home but states that they haven't been helping her. Pt states that she has been responsible for changing her wound care dressings and for continuing to take care of the house and her dogs and birds. SW offered support to pt. SW educated pt on Direction Home and pt may qualify for additional help at home. Pt denied wanting resources for direction home at this time but states that the doctor had mentioned to her that SNF at discharge may be beneficial. SW explained referral process and pre-certification. Pt, at this time, as no facility in mind that she wants to go to. SW explained that this worker can provide list of in network facilities for pt. Pt states understanding. Pt denied additional needs or concerns at this time. Plan: Most likely SNF pending acceptance and pre-cert Radha aMrtell [employer], [employer]
[2017-12-19] MEDS: Insulin Lispro 100 UNIT/ML INSULN.PEN SC ×2 (12:30→23:05)
[2017-12-19] MEDS: Lisinopril 20 MG Tablet PO (12:30)
[2017-12-19] MEDS: Insulin Lispro 100 UNIT/ML INSULN.PEN 10 UNIT SC (12:31)
--- NOTE | 2017-12-19 12:32 | CON.PCM_ITS ---
Problem List (1) Abscess of chin Status: Acute Reason for Consult: chin abscess Consulted by: Dr. Kraft History of Present Illness: The patient is a 67 year old F recent admission for chin infection, taken to OR for debridement by Dr. Soto, no sign of bone involvement, but surg path (+) for squamous cell with extension beyond margins. Prior cx with MRSA. Surg cx with sphingomonas, haemophilis, and anaerobes. Sent home on 7 days of doxy/keflex. While at home, reports not getting help from family with wound care. Had more swelling, drainage, foul odor even before stopping abx. Came to ED, started on vanc/ceftriaxone. Some chills. Full ROS performed and neg except as noted above. - Medical History Past Medical History (Chronic Problems): Chronic Problems (Last Reviewed 12/04/17 @ 01:53 by Sanjay Rhodes MD) Personal history of malignant neoplasm of other sites of lip, oral cavity, and pharynx (Chronic) Personal history of skin cancer (Chronic) Asthma (Chronic) Obesity (Chronic) Atrial enlargement, left (Chronic) BMI 40.0-44.9, adult (Chronic) Chronic diastolic (congestive) heart failure (Chronic) Diastolic dysfunction (Chronic) Sinus bradycardia (Chronic) Fatigue (Chronic) Long-term use of high-risk medication (Chronic) Bilateral lower extremity edema (Chronic) History of cardioversion (Chronic ~10/01/16) H/O right and left heart catheterization (Chronic ~05/15/15) H/O basal cell carcinoma excision (Chronic) Recurrent basal cell carcinoma following excision (Chronic) Persistent atrial fibrillation (Chronic) Chronic diastolic heart failure (Chronic) [facility] (current) use of anticoagulants (Chronic) HTN (hypertension) (Chronic) HLD (hyperlipidemia) (Chronic) Diabetes mellitus (Chronic) COPD (chronic obstructive pulmonary disease) (Chronic) NICKOLAS (obstructive sleep apnea) (Chronic) Morbid obesity (Chronic) Basal cell carcinoma of face (Chronic) Left face-has had 2 surgeries so far the first in February of 2015 Allergies/Adverse Reactions: Allergies ampicillin Allergy (Severe, Verified 12/18/17 19:41) Anaphylaxis hydrocodone bitartrate [From Vicodin] Allergy (Severe, Verified 12/18/17 19:41) Itching Penicillins Allergy (Severe, Verified 12/18/17 19:41) Anaphylaxis clarithromycin [From Biaxin] Allergy (Verified 12/18/17 19:41) Rash Red and itchy venom-honey bee [bee venom (honey bee)] Allergy (Verified 12/18/17 19:41) Nausea/Vom/Diarrhea Home Medications: Ambulatory Orders Medication Instructions Recorded Calcium Carbonate [Calcium] 500 mg PO BID 04/13/15 Diazepam [Valium] 10 mg PO TID 04/13/15 Metformin HCl [Glucophage] 1,000 mg PO QHS 04/13/15 Metformin HCl [Glucophage] 500 mg PO BREAKFAST 04/13/15 Omeprazole [Prilosec] 40 mg PO DAILY 04/13/15 traZODone [Desyrel] 50 mg PO QHS 04/13/15 Aspirin [Aspirin, Baby] 81 mg PO DAILY@0800 tab.chew 04/18/15 Tizanidine HCl [Zanaflex] 2 mg PO TID 05/13/15 Oxycodone HCl/Acetaminophen 7.5 mg PO TID 07/20/16 [Percocet 10-325 mg Tablet] Albuterol Inhaler [Ventolin Hfa] 2 puff INHALATION Q4H PRN PRN #1 08/14/16 inhaler Cetirizine HCl [Zyrtec] 10 mg PO DAILY #30 cap 08/18/16 Ferrous Sulfate 325 mg PO DAILY@0800 #30 tab 08/18/16 Gabapentin [Neurontin] 600 mg PO TID 01/26/17 atorvastatin 20 mg tablet 20 mg PO QHS tab 03/09/17 lisinopril 20 mg tablet 20 mg PO QDAY 03/09/17 flecainide 150 mg tablet 150 mg PO Q12H #180 tab 04/18/17 insulin NPH isophane U- 100 human 18 unit SC QPM 04/18/17 100 unit/mL subcutaneous suspension insulin lispro (U- 100) 100 24 unit SC QAM 04/18/17 unit/mL subcutaneous solution amlodipine 5 mg tablet 5 mg PO QDAY #90 tab 06/27/17 Furosemide 40 mg PO TID 08/03/17 Insulin Lispro [Humalog] 10 unit SC LUNCH 08/03/17 Insulin Lispro [Humalog] 15 unit SQ DINNER 08/03/17 Insulin NPH Human [Humulin N Pen] 10 units SC DAILY@0730 08/03/17 metolazone 2.5 mg tablet 2.5 mg PO .COMPLEX #10 tab 08/05/17 potassium chloride ER 20 mEq 40 meq PO QDAY #60 tab 08/17/17 tablet,extended release(part/cryst) warfarin 10 mg tablet 10 mg PO SUMOFRSA #30 tab 10/03/17 warfarin 7.5 mg tablet 7.5 mg PO TUWETH #30 tab 10/03/17 carvedilol 6.25 mg tablet 6.25 mg PO BID #60 tab 10/20/17 Biotin 1 tab PO DAILY 11/18/17 Diphenoxylate/Atrop [Lomotil] 1 tab PO Q6H PRN PRN 11/18/17 Folic Acid 0.8 mg PO DAILY 11/18/17 Ipratropium Traver 0.06% 2 spray NASAL BID 11/18/17 [ATROVENT NASAL SPRAY] Vitamin B12 2,000 unit PO DAILY 11/18/17 Cephalexin [Keflex] 500 mg PO Q8 #21 cap 12/10/17 Doxycycline 100 mg PO BID #14 cap 12/10/17 - Social History Tobacco Use: non-smoker Vital Signs Temp Pulse Resp BP Pulse Ox 98.0 F 72 20 H 148/72 H 96 12/19/17 05:26 12/19/17 07:47 12/19/17 07:47 12/19/17 05:26 12/19/17 05:26 Oxygen Delivery Method Room Air Weight: 107.7 kg Body Mass Index (BMI) 42.0 Finger Stick Blood Glucose 117 Laboratory Tests Past 24 Hrs 12/18/17 12/18/17 12/18/17 20:15 20:15 20:15 WBC 9.1 RBC 3.89 L Hgb 11.2 L Hct 34.5 L MCV 88.7 MCH 28.8 MCHC 32.5 RDW 14.9 H RDW Differential 48.0 H Plt Count 454 H MPV 11.9 Immature Gran % (Auto) 0.200 Neut % (Auto) 75.7 H Lymph % (Auto) 14.2 L Forrest % (Auto) 7.2 Eos % (Auto) 1.8 Baso % (Auto) 0.9 Absolute Neuts (auto) 6.9 Absolute Lymphs (auto) 1.29 Total Counted Not Reportable Nucleated RBC % 5.0 Differential Comment SCANNED Diff Path Review May foll ESR 44 H Absolute Retic 0.46 PT Cancelled INR Cancelled Sodium 140 Potassium 4.8 Chloride 105 Carbon Dioxide 29.0 Anion Gap 6 BUN 21 H Creatinine 1.13 H Estim Creat Clear Calc 38.87 Est GFR (MDRD) Af Amer 61 Est GFR (MDRD) Non-Af 51 L BUN/Creatinine Ratio 18.6 Glucose 95 Calcium 8.4 L Magnesium C-React Prot Ext Range 6.39 H 12/18/17 12/19/17 12/19/17 23:45 05:54 07:10 WBC 6.4 RBC 3.68 L Hgb 10.2 L Hct 33.4 L MCV 90.8 MCH 27.7 MCHC 30.5 L RDW 14.8 H RDW Differential 48.9 H Plt Count 294 MPV 10.9 Immature Gran % (Auto) 0.200 Neut % (Auto) 63.6 Lymph % (Auto) 22.3 Forrest % (Auto) 9.2 Eos % (Auto) 4.1 Baso % (Auto) 0.6 Absolute Neuts (auto) 4.1 Absolute Lymphs (auto) 1.42 Total Counted Not Reportable Nucleated RBC % Differential Comment Diff Path Review ESR Absolute Retic PT INR Sodium 142 Potassium 3.9 Chloride 110 H Carbon Dioxide 21.0 Anion Gap 11 BUN 19 H Creatinine 1.06 H Estim Creat Clear Calc 41.44 Est GFR (MDRD) Af Amer 66 Est GFR (MDRD) Non-Af 55 L BUN/Creatinine Ratio 17.9 Glucose 111 H Calcium 8.2 L Magnesium 1.8 C-React Prot Ext Range 12/19/17 07:10 WBC RBC Hgb Hct MCV MCH MCHC RDW RDW Differential Plt Count MPV Immature Gran % (Auto) Neut % (Auto) Lymph % (Auto) Forrest % (Auto) Eos % (Auto) Baso % (Auto) Absolute Neuts (auto) Absolute Lymphs (auto) Total Counted Nucleated RBC % Differential Comment Diff Path Review ESR Absolute Retic PT 20.6 H INR 1.8 Sodium Potassium Chloride Carbon Dioxide Anion Gap BUN Creatinine Estim Creat Clear Calc Est GFR (MDRD) Af Amer Est GFR (MDRD) Non-Af BUN/Creatinine Ratio Glucose Calcium Magnesium C-React Prot Ext Range - Other Studies Radiology: [] reviewed Other Studies: [] Route of nutrition/ use of supplements: [] Nutritional Intake: [] IV Site: [] Muro Catheter: [] - Physical Exam General: Alert, Cooperative, No apparent distress HEENT: Atraumatic, PERRLA, EOMI Neck: Supple, No Nodes Lungs: Clear to auscultation, Normal air movement Cardiovascular: Regular rate, Regular Rhythm Abdomen: Soft, Non Tender, Non-Distended Extremities: No edema Skin: Ulcer/ Wound - on chin, reviewed photos IV Site: Peripheral, without redness Musculoskeletal: No Tenderness to Palpation of Joints or Extremities Neurological: Cranial nerves II-XII grossly intact - Assessment/Plan Antibiotics: [] Assessment/Plan: [] MRSA chin abscess and cellulitis - taken to OR 12/[address] Soto. Surg cx now with haemophilis, beta lactamase neg, sphingomonas, and prevotella. Bone cx neg. 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 Sent home on po doxy/keflex, but sx worsened. Now re-admitted, cont vanc/ceftriaxone. Will add flagyl for anaerobic coverage. Will need further cancer staging, possibly more debridement. Dr. Soto consulted. Likely would benefit from onc eval at this point. Will follow, thank you.
[2017-12-19 12:35] LABS: Bedside Glucose 167 mg/dL (70-110)
--- NOTE | 2017-12-19 12:53 | CASEMGMT ---
Social Work Note SW received call from [facility] who states TCU is able to accept pt. Pt has [employer] so referral will need to be faxed to [employer] as well. SW faxed referral to [facility] for Level of Care. Plan: TCU pending pre-cert from [facility] and Level of Care Radha Martell HOUSE FELLOW, BUILD MANAGER
[2017-12-19] MEDS: 0.9% NaCl Peripheral Flush Adult/Peds IV (14:13)
[2017-12-19] MEDS: metroNIDAZOLE 500 MG Tablet PO ×2 (14:38→23:02)
--- NOTE | 2017-12-19 15:10 | PCM.PN.SRG ---
Subjective: Postop #13 Patient is known to me. She had surgery on 12/06/17 where she underwent surgical preparation right chin with incision and drainage and excisional debridement MRSA abscess (6 cm2) and partial ostectomy anterior mandible for osteomyelitis. She was discharged home on 12/10/17 with daily Silver dressing changes. Cultures at that time showed MRSA and Haemophilus parainfluenzae. She was discharged on Keflex and Doxycycline. Patient states she had trouble keeping food out of the wound at times. She came back to the ED yesterday because of increasing pain and purulent drainage that was foul smelling according to the patient. She denied any fever. Her WBC in the ED was 9.1. She was started on Vancomycin. A wound culture was obtained. Additional organisms were noted from the previous culture which showed Sphingomonas paucimobilis and Prevotella oralis. In addition to the Vancomycin, Ceftriaxone and Flagyl were added. The pathology showed squamous cell carcinoma with positive margins both peripheral and deep. She had a lower lip carcinoma excised a year ago by a Plastic Surgeon in [place] at the [facility]. She went back to him after her recent discharge. He recommended additional excision would be needed until clear margins are obtained. This would be followed by complex facial reconstruction. However, complex facial reconstruction will need to wait until the current MRSA infection has been treated and cleared. - Physical Exam General: Alert, Oriented x3 HEENT: PERRLA, EOMI Oral: Moist Mucosa Neck: Supple, No Nodes Skin: Ulcer/ Wound - right chin wound is stable. Some granulation tissue noted. Bone is seen at the base. Some fat necrosis present. No purulent drainage noted. No fluctuance noted. No cellulitis noted. Mild tenderness to palpation. Wound was redressed wtih saline gauze. Measures 3.5 x 2 x 1.5 cm. Neurological: Cranial nerves II-XII grossly intact Psych/Mental Status: Normal Affect, Appropriate Vital Signs Temp Pulse Resp BP Pulse Ox 98.0 F 53 L 16 148/72 H 96 12/19/17 05:26 12/19/17 13:26 12/19/17 13:26 12/19/17 05:26 12/19/17 05:26 Oxygen Delivery Method Room Air Weight: 237 lb 7.005 oz Body Mass Index (BMI) 42.0 Finger Stick Blood Glucose 117 Intake and Output for Last 24 Hours 12/17/17 12/18/17 12/19/17 23:59 23:59 23:59 Intake Total 1215 / 1215 Balance 1215 / 1215 Microbiology Past 72 Hours 12/18/17 22:15 Gram Stain - Final Skin - Face Laboratory Tests Past 24 Hrs 12/18/17 12/18/17 12/18/17 20:15 20:15 20:15 WBC 9.1 RBC 3.89 L Hgb 11.2 L Hct 34.5 L MCV 88.7 MCH 28.8 MCHC 32.5 RDW 14.9 H RDW Differential 48.0 H Plt Count 454 H MPV 11.9 Immature Gran % (Auto) 0.200 Neut % (Auto) 75.7 H Lymph % (Auto) 14.2 L Price % (Auto) 7.2 Eos % (Auto) 1.8 Baso % (Auto) 0.9 Absolute Neuts (auto) 6.9 Absolute Lymphs (auto) 1.29 Total Counted Not Reportable Nucleated RBC % 5.0 Differential Comment SCANNED Diff Path Review May foll ESR 44 H Absolute Retic 0.46 PT Cancelled INR Cancelled Sodium 140 Potassium 4.8 Chloride 105 Carbon Dioxide 29.0 Anion Gap 6 BUN 21 H Creatinine 1.13 H Estim Creat Clear Calc 38.87 Est GFR (MDRD) Af Amer 61 Est GFR (MDRD) Non-Af 51 L BUN/Creatinine Ratio 18.6 Glucose 95 Calcium 8.4 L Magnesium C-React Prot Ext Range 6.39 H 12/18/17 12/19/17 12/19/17 23:45 05:54 07:10 WBC 6.4 RBC 3.68 L Hgb 10.2 L Hct 33.4 L MCV 90.8 MCH 27.7 MCHC 30.5 L RDW 14.8 H RDW Differential 48.9 H Plt Count 294 MPV 10.9 Immature Gran % (Auto) 0.200 Neut % (Auto) 63.6 Lymph % (Auto) 22.3 Price % (Auto) 9.2 Eos % (Auto) 4.1 Baso % (Auto) 0.6 Absolute Neuts (auto) 4.1 Absolute Lymphs (auto) 1.42 Total Counted Not Reportable Nucleated RBC % Differential Comment Diff Path Review ESR Absolute Retic PT INR Sodium 142 Potassium 3.9 Chloride 110 H Carbon Dioxide 21.0 Anion Gap 11 BUN 19 H Creatinine 1.06 H Estim Creat Clear Calc 41.44 Est GFR (MDRD) Af Amer 66 Est GFR (MDRD) Non-Af 55 L BUN/Creatinine Ratio 17.9 Glucose 111 H Calcium 8.2 L Magnesium 1.8 C-React Prot Ext Range 12/19/17 07:10 WBC RBC Hgb Hct MCV MCH MCHC RDW RDW Differential Plt Count MPV Immature Gran % (Auto) Neut % (Auto) Lymph % (Auto) Price % (Auto) Eos % (Auto) Baso % (Auto) Absolute Neuts (auto) Absolute Lymphs (auto) Total Counted Nucleated RBC % Differential Comment Diff Path Review ESR Absolute Retic PT 20.6 H INR 1.8 Sodium Potassium Chloride Carbon Dioxide Anion Gap BUN Creatinine Estim Creat Clear Calc Est GFR (MDRD) Af Amer Est GFR (MDRD) Non-Af BUN/Creatinine Ratio Glucose Calcium Magnesium C-React Prot Ext Range POC Glucose 12/19/17 12/19/17 12/18/17 12:27 06:33 23:45 POC Glucose 167 H 127 H 137 H Medical Necessity - Tobacco Use Smoking Status: Never smoker Tobacco Use: Non-smoker Assessment/Plan All Active Problems (Last Reviewed 12/04/17 @ 01:53 by Sanjay Rhodes MD) Osteomyelitis of mandible (Acute) Abscess of chin (Acute) Methicillin resistant Staphylococcus aureus infection (Acute) Facial cellulitis (Acute) History of facial surgery (Resolved) History of tonsillectomy (Resolved) History of bilateral knee replacement (Resolved) History of cataract extraction (Resolved) History of syncope (Acute) Syncope (Acute) Acute asthmatic bronchitis (Resolved) Acute exacerbation of CHF (congestive heart failure) (Resolved) Atrial fibrillation with RVR (Resolved) Paroxysmal A-fib (Resolved) SOB (shortness of breath) (Resolved) 1. Nonhealing MRSA infection wound right chin. 2. MRSA. 3. 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 4. Personal history of skin cancer. 5. Personal history of lower lip cancer. 6. Diabetes mellitus. 7. s/p surgical preparation right chin with incision and drainage and excisional debridement MRSA abscess (6 cm2) and partial ostectomy anterior mandible for osteomyelitis. Continue wound care with saline dressing changes twice a day. If patient can have someone do saline dressing changes twice a day at home then can continue this regimen at home. Sometimes Silver dressing changes can be slimy with drainage that looks purulent. If twice a day saline dressing changes are difficult at home, then can resume the Silver dressing changes daily at discharge. Continue IV Vancomycin, Ceftriaxone, and Flagyl. Current wound culture is pending. Encourage nutritional supplementation with protein to help the healing process. After her discharge from her surgery on 12/06/17, she followed up with her Plastic Surgeon at [facility]. According to the patient, once the infection has been treated and is cleared, then further excision of the squamous cell carcinoma will be done until clear margins are obtained. I anticipate a large resultant defect that will necessitate a complex facial reconstruction.
--- NOTE | 2017-12-19 15:43 | CASEMGMT ---
Addendum entered by Radha Martell 12/20/17 12:04: SW placed a call to Willa and updated her that pt's insurance denied pt for placement and pt will be going home with [facility]. Original Note: Social Work Note SW received message from Kay Velez at [facility] stating that pt doesn't meet criteria for SNF and O has denied pt for SNF placement. Per Kay Velez O would agree with [facility]. Kay Velez provided number [phone]. IZABELLA and JACK CM to follow up with pt tomorrow to determine discharge plans. Plan: TBD Radha Martell TYPEWRITERS FUNCTIONAL TESTER, GEOPHYSICAL ENGINEER
[2017-12-19 17:35] LABS: Bedside Glucose 94 mg/dL (70-110)
[2017-12-19 17:36] LABS: Bedside Glucose 92 mg/dL (70-110)
[2017-12-19] MEDS: traZODone 50 MG Tablet PO (23:02)
[2017-12-19] MEDS: Atorvastatin Calcium 20 MG Tablet PO (23:03)
[2017-12-19] MEDS: Insulin NPH Human 100 UNITS/ML PEN 18 UNITS SC (23:04)
[2017-12-19 23:26] LABS: Bedside Glucose 155 mg/dL (70-110)
[2017-12-20] VITALS (7 sets, daily range): BP systolic 124–158; BP diastolic 73–93; PULSE 66–102; RESP 16–18; TEMP 36.3–36.8; O2SAT 90–100
[2017-12-20] MEDS: Morphine 2 MG/ML Syringe IV ×2 (04:02→22:34)
[2017-12-20 05:32] LABS: Absolute Lymphocyte Count 1.24 X10^3/ul (0.83-4.51); Absolute Neutrophil Count 3.9 X10^3/uL (2.0-7.7); Basophil# 0.04 X10^3/uL; Basophil% 0.7 % (0-1); Eosinophil# 0.29 X10^3/uL; Eosinophils% 4.8 % (0-5); Hematocrit 32.3 % (37-47); Hemoglobin 9.8 g/dl (12.0-15.0); Lymphocyte # 1.24 X10^3/ul (4.0); Lymphocyte % 20.5 % (19-41); Mean Corp Hgb Conc 30.3 g/gl (32-36); Mean Corpuscular Hgb 28.5 pg (27.0-32.0); Mean Corpuscular Volume 93.9 fL (81-99); Mean Platelet Vol. 10.9 fl (6.2-12.0); Monocyte# 0.56 X10^3/uL; Monocyte% 9.3 % (0-10); Neutrophil % 64.5 % (47-70); Platelet Count 286 K/mm3 (150-450); RBC Distribution Width CV 14.8 % (11.6-14.6); RBC Distribution Width SD 48.4 fl (35.1-43.9); Red Blood Count 3.44 M/mm3 (4.2-5.4)
[2017-12-20 05:34] LABS: International Normalized Ratio 1.9; Prothrombin Time (Protime)PT. 21.4 SECONDS (11.7-14.9)
[2017-12-20 05:36] LABS: POSITIVE COUNT NO; POSITIVE DIFFERENTIAL NO; POSITIVE MORPHOLOGY NO
[2017-12-20 05:47] LABS: Anion Gap 8 (5-15); BUN 20 mg/dL (7-18); BUN/Creat Ratio 17.7 RATIO (10-20); Calcium,Total 7.9 mg/dL (8.5-10.1); Chloride 103 mmol/L (98-107); Creatinine, Serum 1.13 mg/dL (0.55-1.02); EST Glomerular Filtration Rate 51 mL/min (>60); Est Glom Filt Rate - Afr Amer 61 mL/min (>60); Estimated Creatinine Clearance 38.87 ml/min; Glucose 144 mg/dL (74-106); Potassium 3.6 mmol/L (3.5-5.1); Sodium Level 142 mmol/L (136-145)
[2017-12-20] MEDS: Gabapentin 600 MG Tablet PO ×3 (06:08→22:29)
[2017-12-20] MEDS: tiZANidine HCl 2 MG Tablet PO ×3 (06:08→22:31)
[2017-12-20] MEDS: diazePAM 5 MG Tablet 10 MG PO ×3 (06:08→22:31)
[2017-12-20] MEDS: metroNIDAZOLE 500 MG Tablet PO ×3 (06:08→22:29)
[2017-12-20] MEDS: Furosemide 40 MG Tablet 60 MG PO ×3 (06:08→22:30)
[2017-12-20] MEDS: Ipratropium/Albuterol Sulfate 3 ML AMPUL.NEB INHALATION ×3 (07:26→19:03)
[2017-12-20] MEDS: Ferrous Sulfate 325 MG Tablet PO (08:30)
[2017-12-20] MEDS: Insulin NPH Human 100 UNITS/ML PEN 10 UNITS SC (08:30)
[2017-12-20] MEDS: Folic Acid 1 MG Tablet PO (08:30)
[2017-12-20] MEDS: Aspirin 81 MG TAB.CHEW PO (08:30)
[2017-12-20] MEDS: Insulin Lispro 100 UNIT/ML INSULN.PEN 24 UNIT SC (08:31)
--- NOTE | 2017-12-20 08:37 | PCM.PN.HOSP ---
Subjective: Tolerating PO pain is controlled, local wound care is progressing well Objective: General: Alert, Oriented x3, Cooperative, No apparent distress HEENT: Atraumatic, EOMI, Normocephalic Oral: Moist Mucosa Neck: Supple, No JVD Lungs: Clear to auscultation, Normal air movement, No rhonchi, No wheeze, No rales Cardiovascular: Regular rate, Regular Rhythm, Normal S1, Normal S2, No murmurs Abdomen: Soft, Non Tender, Non-Distended, No Hepato-splenomegaly Skin: - - 3 cm wound on her chin, some sloughing is present Psych/Mental Status: Normal Affect, Appropriate Vitals/I&O's: Vital Signs Temp Pulse Resp BP Pulse Ox 97.3 F L 66 18 158/93 H 90 12/20/17 03:53 12/20/17 07:28 12/20/17 07:28 12/20/17 03:53 12/20/17 07:28 Oxygen Delivery Method Room Air Weight: 237 lb 7.005 oz Body Mass Index (BMI) 42.0 Finger Stick Blood Glucose 117 Intake and Output for Last 24 Hours 12/18/17 12/19/17 12/20/17 23:59 23:59 23:59 Intake Total 2016 848 / 848 Balance 2016 848 / 848 Microbiology Past 72 Hours 12/18/17 22:15 Skin - Face Gram Stain - Final Laboratory Results 12/19/17 12:27: POC Glucose 167 H 12/19/17 16:45: POC Glucose 94 12/19/17 17:28: POC Glucose 92 12/19/17 22:29: POC Glucose 155 H 12/20/17 05:05: PT 21.4 H, INR 1.9 12/20/17 05:05: WBC 6.0, RBC 3.44 L, Hgb 9.8 L, Hct 32.3 L, MCV 93.9, MCH 28.5, MCHC 30.3 L, RDW 14.8 H, RDW Differential 48.4 H, Plt Count 286, MPV 10.9, Immature Gran % (Auto) 0.200, Neut % (Auto) 64.5, Lymph % (Auto) 20.5, [place] % (Auto) 9.3, Eos % (Auto) 4.8, Baso % (Auto) 0.7, Absolute Neuts (auto) 3.9, Absolute Lymphs (auto) 1.24, Total Counted Not Reportable 12/20/17 05:05: Sodium 142, Potassium 3.6, Chloride 103, Carbon Dioxide 31.0, Anion Gap 8, BUN 20 H, Creatinine 1.13 H, Estim Creat Clear Calc 38.87, Est GFR (MDRD) Af Amer 61, Est GFR (MDRD) Non-Af 51 L, BUN/Creatinine Ratio 17.7, Glucose 144 H, Calcium 7.9 L Current Medications Acetaminophen (Tylenol) 650 mg PO Q6H PRN PRN PRN Reason: Mild Pain (scale 0-3)/T>100.7 Al Hydroxide/Mg Hydroxide (Mylanta Ii) 30 ml PO Q6H PRN PRN PRN Reason: Gastric burning Albuterol Sulfate (Ventolin Aerosols) 2.5 mg INHALATION Q2H PRN PRN PRN Reason: dyspnea, wheezing Albuterol/Ipratropium (Duoneb) 3 ml INHALATION Q6HWA.RT [facility] Last Admin: 12/20/17 07:26 Dose: 3 ml Amlodipine Besylate (Norvasc) 5 mg PO DAILY [facility] Last Admin: 12/19/17 10:08 Dose: 5 mg Aspirin (Aspirin, Baby) 81 mg PO DAILY@0800 [facility] Last Admin: 12/20/17 08:30 Dose: 81 mg Atorvastatin Calcium (Lipitor) 20 mg PO QHS [facility] Last Admin: 12/19/17 23:03 Dose: 20 mg Calcium Carbonate (Os-Kirill 500) 500 mg PO BID [facility] Last Admin: 12/19/17 23:03 Dose: 500 mg Carvedilol (Coreg) 6.25 mg PO BID [facility] Last Admin: 12/19/17 23:02 Dose: 6.25 mg Cyanocobalamin (Vitamin B12) 2,000 mcg PO DAILY [facility] Last Admin: 12/19/17 08:44 Dose: 2,000 mcg Dextrose (D50w Syringe) 0 gm IV X1 PRN; Protocol PRN Reason: Hypoglycemia Diazepam (Valium) 10 mg PO TID [facility] Last Admin: 12/20/17 06:08 Dose: 10 mg Diphenoxylate HCl/Atropine (Lomotil) 1 tablet PO Q6H PRN PRN PRN Reason: Diarrhea Ferrous Sulfate (Ferrous Sulfate) 325 mg PO DAILY@0800 [facility] Last Admin: 12/20/17 08:30 Dose: 325 mg Flecainide Acetate (Tambocor) 150 mg PO Q12 [facility] Last Admin: 12/19/17 23:03 Dose: 150 mg Folic Acid (Folic Acid) 1 mg PO DAILY@0800 [facility] Last Admin: 12/20/17 08:30 Dose: 1 mg Furosemide (Lasix) 60 mg PO TID [facility] Last Admin: 12/20/17 06:08 Dose: 60 mg Gabapentin (Neurontin) 600 mg PO TID [facility] Last Admin: 12/20/17 06:08 Dose: 600 mg Glucagon () 1 mg IM .X1 PRN PRN Reason: Hypoglycemia Vancomycin IV Pharmacy to Dose (1 ea/ Sodium Chloride) 500 mls @ 250 mls/hr IV X1 PRN; Protocol PRN Reason: Rx to Dose Ceftriaxone Sodium 2 gm/ (Dextrose) 50 mls @ 100 mls/hr IV Q24 [facility] Last Admin: 12/19/17 09:10 Dose: 100 mls/hr Sodium Chloride () 250 mls @ 15 mls/hr IV .[id number] PRN PRN Reason: SALINE FLUSH Vancomycin HCl 1,250 mg/ (Sodium Chloride) 275 mls @ 167 mls/hr IV Q24H [facility] Last Admin: 12/19/17 23:04 Dose: 167 mls/hr Insulin Human Lispro (Humalog Kwikpen (Bkc)) 10 unit SC LUNCH [facility] Last Admin: 12/19/17 12:31 Dose: 10 u Insulin Human Lispro (Humalog Kwikpen (Bkc)) 0 unit SC ACHS [facility]; Protocol Last Admin: 12/20/17 08:26 Dose: Not Given Insulin Human Lispro (Humalog Kwikpen (Bkc)) 15 unit SC DINNER [facility] Last Admin: 12/19/17 18:22 Dose: Not Given Insulin Human Lispro (Humalog Kwikpen (Bkc)) 24 unit SC BREAKFAST [facility] Last Admin: 12/20/17 08:31 Dose: 24 unit Insulin Human NPH (Humulin N (Bkc)) 18 units SC QPM [facility] Last Admin: 12/19/17 23:04 Dose: 18 u Insulin Human NPH (Humulin N (Bkc)) 10 units SC DAILY@0730 [facility] Last Admin: 12/20/17 08:30 Dose: 10 u Ipratropium [place] (Atrovent Nasal [place] (G)) 2 spray NASAL BID [facility] Last Admin: 12/19/17 23:05 Dose: 2 spray Lisinopril (Zestril) 20 mg PO DAILY [facility] Last Admin: 12/19/17 12:30 Dose: 20 mg Loratadine (Claritin) 10 mg PO DAILY [facility] Last Admin: 12/19/17 08:42 Dose: 10 mg Magnesium Hydroxide (Milk Of Magnesia) 30 ml PO DAILY PRN PRN PRN Reason: Constipation Metronidazole (Flagyl) 500 mg PO TID [facility] Last Admin: 12/20/17 06:08 Dose: 500 mg Morphine Sulfate () 1 - 2 mg IV Q4H PRN PRN PRN Reason: Moderate Pain (pain scale 4-5) Last Admin: 12/19/17 14:11 Dose: 2 mg Morphine Sulfate () 2 - 4 mg IV Q3H PRN PRN PRN Reason: Severe Pain (pain scale 6-10) Last Admin: 12/20/17 04:02 Dose: 4 mg Ondansetron HCl (Zofran) 4 mg IV Q8H PRN PRN PRN Reason: NAUSEA Oxycodone HCl (Oxyir) 10 mg PO Q4H PRN PRN PRN Reason: Moderate Pain (pain scale 4-5) Last Admin: 12/19/17 23:03 Dose: 10 mg Pantoprazole Sodium (Protonix) 40 mg PO DAILY [facility] Last Admin: 12/19/17 08:44 Dose: 40 mg Potassium Chloride (K-Dur) 40 meq PO DAILY [facility] Last Admin: 12/19/17 08:43 Dose: 40 meq Promethazine HCl (Phenergan) 12.5 mg IV Q6H PRN PRN PRN Reason: NAUSEA/VOMITING Sodium Chloride () 5 - 30 ml IV UD PRN PRN Reason: SALINE FLUSH Last Admin: 12/19/17 14:13 Dose: 10 ml Tizanidine HCl (Zanaflex) 2 mg PO TID [facility] Last Admin: 12/20/17 06:08 Dose: 2 mg Trazodone HCl (Desyrel) 50 mg PO QHS [facility] Last Admin: 12/19/17 23:02 Dose: 50 mg Warfarin Sodium (Coumadin (Pbkc)) 7.5 mg PO TuWeTh@1700 [facility]; Protocol Warfarin Sodium (Coumadin (Pbkc)) 10 mg PO SuMoFrSa@1700 [facility] Last Admin: 12/19/17 16:51 Dose: 10 mg Medical Necessity - Tobacco Use Smoking Status: Never smoker Tobacco Use: Non-smoker Assessment/Plan All Active Problems (Last Reviewed 12/04/17 @ 01:53 by Sanjay Rhodes MD) Osteomyelitis of mandible (Acute) Abscess of chin (Acute) Methicillin resistant Staphylococcus aureus infection (Acute) Facial cellulitis (Acute) History of facial surgery (Resolved) History of tonsillectomy (Resolved) History of bilateral knee replacement (Resolved) History of cataract extraction (Resolved) History of syncope (Acute) Syncope (Acute) Acute asthmatic bronchitis (Resolved) Acute exacerbation of CHF (congestive heart failure) (Resolved) Atrial fibrillation with RVR (Resolved) Paroxysmal A-fib (Resolved) SOB (shortness of breath) (Resolved) 1. Facial abscess vs squamous cell carcinoma - She was recently admitted for this issue and was treated with an appropriate course of abx - There was some drainage from packing - c/s to surgery and ID, appreciate recs - C/w BID wet to dry, will have home health referral placed to assist at home - C/w vanc, flagyl and rocephin, cx pending, gram stain with no organisms, possible the purulent material was from the silver dressing - Oxycodone and IV morphine for pain 2. Chronic diastolic CHF/CKD3/A-fib/HTN/HLD/NICKOLAS - LV EF is 70% - c/w statin, norvasc, lisinopril, lasix, metolazone, coreg and coumadin - INR today 1.9, c/w felcainide for the afib - Cr is at baseline currently, will continue to monitor - given the wound, CPAP is not feasable, can use nocturnal O2 if necessary 3. Chronic COPD - stable - c/w home inhalers 4. DM2 - Hold home oral medications, c/w home insulin - c/w SSI, BG 127 this morning 5. GERD - stable - c/w PPI 6. Anxiety/Depression - stable - c/w home diazepam and trazodone 7. Iron deficiency anemia - H/H is stable - c/w home iron DVT: SCDs and Coumadin Diet: Calorie controlled Code Visit Inpatient E&M: 44664 Subs Hosp L2
--- NOTE | 2017-12-20 08:40 | PN_ITS ---
Subjective: Tolerating PO pain is controlled, local wound care is progressing well Objective: General: Alert, Oriented x3, Cooperative, No apparent distress HEENT: Atraumatic, EOMI, Normocephalic Oral: Moist Mucosa Neck: Supple, No JVD Lungs: Clear to auscultation, Normal air movement, No rhonchi, No wheeze, No rales Cardiovascular: Regular rate, Regular Rhythm, Normal S1, Normal S2, No murmurs Abdomen: Soft, Non Tender, Non-Distended, No Hepato-splenomegaly Skin: - - 3 cm wound on her chin, some sloughing is present Psych/Mental Status: Normal Affect, Appropriate Vitals/I&O's: Vital Signs Temp Pulse Resp BP Pulse Ox 97.3 F L 66 18 158/93 H 90 12/20/17 03:53 12/20/17 07:28 12/20/17 07:28 12/20/17 03:53 12/20/17 07:28 Oxygen Delivery Method Room Air Weight: 237 lb 7.005 oz Body Mass Index (BMI) 42.0 Finger Stick Blood Glucose 117 Intake and Output for Last 24 Hours 12/18/17 12/19/17 12/20/17 23:59 23:59 23:59 Intake Total 2016 848 / 848 Balance 2016 848 / 848 Microbiology Past 72 Hours 12/18/17 22:15 Skin - Face Gram Stain - Final Laboratory Results 12/19/17 12:27: POC Glucose 167 H 12/19/17 16:45: POC Glucose 94 12/19/17 17:28: POC Glucose 92 12/19/17 22:29: POC Glucose 155 H 12/20/17 05:05: PT 21.4 H, INR 1.9 12/20/17 05:05: WBC 6.0, RBC 3.44 L, Hgb 9.8 L, Hct 32.3 L, MCV 93.9, MCH 28.5, MCHC 30.3 L, RDW 14.8 H, RDW Differential 48.4 H, Plt Count 286, MPV 10.9, Immature Gran % (Auto) 0.200, Neut % (Auto) 64.5, Lymph % (Auto) 20.5, [place] % (Auto) 9.3, Eos % (Auto) 4.8, Baso % (Auto) 0.7, Absolute Neuts (auto) 3.9, Absolute Lymphs (auto) 1.24, Total Counted Not Reportable 12/20/17 05:05: Sodium 142, Potassium 3.6, Chloride 103, Carbon Dioxide 31.0, Anion Gap 8, BUN 20 H, Creatinine 1.13 H, Estim Creat Clear Calc 38.87, Est GFR (MDRD) Af Amer 61, Est GFR (MDRD) Non-Af 51 L, BUN/Creatinine Ratio 17.7, Glucose 144 H, Calcium 7.9 L Current Medications Acetaminophen (Tylenol) 650 mg PO Q6H PRN PRN PRN Reason: Mild Pain (scale 0-3)/T>100.7 Al Hydroxide/Mg Hydroxide (Mylanta Ii) 30 ml PO Q6H PRN PRN PRN Reason: Gastric burning Albuterol Sulfate (Ventolin Aerosols) 2.5 mg INHALATION Q2H PRN PRN PRN Reason: dyspnea, wheezing Albuterol/Ipratropium (Duoneb) 3 ml INHALATION Q6HWA.RT [facility] Last Admin: 12/20/17 07:26 Dose: 3 ml Amlodipine Besylate (Norvasc) 5 mg PO DAILY [facility] Last Admin: 12/19/17 10:08 Dose: 5 mg Aspirin (Aspirin, Baby) 81 mg PO DAILY@0800 [facility] Last Admin: 12/20/17 08:30 Dose: 81 mg Atorvastatin Calcium (Lipitor) 20 mg PO QHS [facility] Last Admin: 12/19/17 23:03 Dose: 20 mg Calcium Carbonate (Os-Kirill 500) 500 mg PO BID [facility] Last Admin: 12/19/17 23:03 Dose: 500 mg Carvedilol (Coreg) 6.25 mg PO BID [facility] Last Admin: 12/19/17 23:02 Dose: 6.25 mg Cyanocobalamin (Vitamin B12) 2,000 mcg PO DAILY [facility] Last Admin: 12/19/17 08:44 Dose: 2,000 mcg Dextrose (D50w Syringe) 0 gm IV X1 PRN; Protocol PRN Reason: Hypoglycemia Diazepam (Valium) 10 mg PO TID [facility] Last Admin: 12/20/17 06:08 Dose: 10 mg Diphenoxylate HCl/Atropine (Lomotil) 1 tablet PO Q6H PRN PRN PRN Reason: Diarrhea Ferrous Sulfate (Ferrous Sulfate) 325 mg PO DAILY@0800 [facility] Last Admin: 12/20/17 08:30 Dose: 325 mg Flecainide Acetate (Tambocor) 150 mg PO Q12 [facility] Last Admin: 12/19/17 23:03 Dose: 150 mg Folic Acid (Folic Acid) 1 mg PO DAILY@0800 [facility] Last Admin: 12/20/17 08:30 Dose: 1 mg Furosemide (Lasix) 60 mg PO TID [facility] Last Admin: 12/20/17 06:08 Dose: 60 mg Gabapentin (Neurontin) 600 mg PO TID [facility] Last Admin: 12/20/17 06:08 Dose: 600 mg Glucagon () 1 mg IM .X1 PRN PRN Reason: Hypoglycemia Vancomycin IV Pharmacy to Dose (1 ea/ Sodium Chloride) 500 mls @ 250 mls/hr IV X1 PRN; Protocol PRN Reason: Rx to Dose Ceftriaxone Sodium 2 gm/ (Dextrose) 50 mls @ 100 mls/hr IV Q24 [facility] Last Admin: 12/19/17 09:10 Dose: 100 mls/hr Sodium Chloride () 250 mls @ 15 mls/hr IV .[id number] PRN PRN Reason: SALINE FLUSH Vancomycin HCl 1,250 mg/ (Sodium Chloride) 275 mls @ 167 mls/hr IV Q24H [facility] Last Admin: 12/19/17 23:04 Dose: 167 mls/hr Insulin Human Lispro (Humalog Kwikpen (Bkc)) 10 unit SC LUNCH [facility] Last Admin: 12/19/17 12:31 Dose: 10 u Insulin Human Lispro (Humalog Kwikpen (Bkc)) 0 unit SC ACHS [facility]; Protocol Last Admin: 12/20/17 08:26 Dose: Not Given Insulin Human Lispro (Humalog Kwikpen (Bkc)) 15 unit SC DINNER [facility] Last Admin: 12/19/17 18:22 Dose: Not Given Insulin Human Lispro (Humalog Kwikpen (Bkc)) 24 unit SC BREAKFAST [facility] Last Admin: 12/20/17 08:31 Dose: 24 unit Insulin Human NPH (Humulin N (Bkc)) 18 units SC QPM [facility] Last Admin: 12/19/17 23:04 Dose: 18 u Insulin Human NPH (Humulin N (Bkc)) 10 units SC DAILY@0730 [facility] Last Admin: 12/20/17 08:30 Dose: 10 u Ipratropium [place] (Atrovent Nasal [place] (G)) 2 spray NASAL BID [facility] Last Admin: 12/19/17 23:05 Dose: 2 spray Lisinopril (Zestril) 20 mg PO DAILY [facility] Last Admin: 12/19/17 12:30 Dose: 20 mg Loratadine (Claritin) 10 mg PO DAILY [facility] Last Admin: 12/19/17 08:42 Dose: 10 mg Magnesium Hydroxide (Milk Of Magnesia) 30 ml PO DAILY PRN PRN PRN Reason: Constipation Metronidazole (Flagyl) 500 mg PO TID [facility] Last Admin: 12/20/17 06:08 Dose: 500 mg Morphine Sulfate () 1 - 2 mg IV Q4H PRN PRN PRN Reason: Moderate Pain (pain scale 4-5) Last Admin: 12/19/17 14:11 Dose: 2 mg Morphine Sulfate () 2 - 4 mg IV Q3H PRN PRN PRN Reason: Severe Pain (pain scale 6-10) Last Admin: 12/20/17 04:02 Dose: 4 mg Ondansetron HCl (Zofran) 4 mg IV Q8H PRN PRN PRN Reason: NAUSEA Oxycodone HCl (Oxyir) 10 mg PO Q4H PRN PRN PRN Reason: Moderate Pain (pain scale 4-5) Last Admin: 12/19/17 23:03 Dose: 10 mg Pantoprazole Sodium (Protonix) 40 mg PO DAILY [facility] Last Admin: 12/19/17 08:44 Dose: 40 mg Potassium Chloride (K-Dur) 40 meq PO DAILY [facility] Last Admin: 12/19/17 08:43 Dose: 40 meq Promethazine HCl (Phenergan) 12.5 mg IV Q6H PRN PRN PRN Reason: NAUSEA/VOMITING Sodium Chloride () 5 - 30 ml IV UD PRN PRN Reason: SALINE FLUSH Last Admin: 12/19/17 14:13 Dose: 10 ml Tizanidine HCl (Zanaflex) 2 mg PO TID [facility] Last Admin: 12/20/17 06:08 Dose: 2 mg Trazodone HCl (Desyrel) 50 mg PO QHS [facility] Last Admin: 12/19/17 23:02 Dose: 50 mg Warfarin Sodium (Coumadin (Pbkc)) 7.5 mg PO TuWeTh@1700 [facility]; Protocol Warfarin Sodium (Coumadin (Pbkc)) 10 mg PO SuMoFrSa@1700 [facility] Last Admin: 12/19/17 16:51 Dose: 10 mg Medical Necessity - Tobacco Use Smoking Status: Never smoker Tobacco Use: Non-smoker Assessment/Plan All Active Problems (Last Reviewed 12/04/17 @ 01:53 by Sanjay Rhodes MD) Osteomyelitis of mandible (Acute) Abscess of chin (Acute) Methicillin resistant Staphylococcus aureus infection (Acute) Facial cellulitis (Acute) History of facial surgery (Resolved) History of tonsillectomy (Resolved) History of bilateral knee replacement (Resolved) History of cataract extraction (Resolved) History of syncope (Acute) Syncope (Acute) Acute asthmatic bronchitis (Resolved) Acute exacerbation of CHF (congestive heart failure) (Resolved) Atrial fibrillation with RVR (Resolved) Paroxysmal A-fib (Resolved) SOB (shortness of breath) (Resolved) 1. Facial abscess vs squamous cell carcinoma - She was recently admitted for this issue and was treated with an appropriate course of abx - There was some drainage from packing - c/s to surgery and ID, appreciate recs - C/w BID wet to dry, will have home health referral placed to assist at home - C/w vanc, flagyl and rocephin, cx pending, gram stain with no organisms, possible the purulent material was from the silver dressing - Oxycodone and IV morphine for pain 2. Chronic diastolic CHF/CKD3/A-fib/HTN/HLD/NICKOLAS - LV EF is 70% - c/w statin, norvasc, lisinopril, lasix, metolazone, coreg and coumadin - INR today 1.9, c/w felcainide for the afib - Cr is at baseline currently, will continue to monitor - given the wound, CPAP is not feasable, can use nocturnal O2 if necessary 3. Chronic COPD - stable - c/w home inhalers 4. DM2 - Hold home oral medications, c/w home insulin - c/w SSI, BG 127 this morning 5. GERD - stable - c/w PPI 6. Anxiety/Depression - stable - c/w home diazepam and trazodone 7. Iron deficiency anemia - H/H is stable - c/w home iron DVT: SCDs and Coumadin Diet: Calorie controlled Code Visit Inpatient E&M: 44416 Subs Hosp L2
[2017-12-20 08:41] LABS: Bedside Glucose 97 mg/dL (70-110)
[2017-12-20 09:24] LABS: Pathologist Review Reviewed
[2017-12-20] MEDS: Ipratropium Bromide 0.06% NASAL SPRAY 2 SPRAY NASAL ×2 (10:00→22:36)
[2017-12-20] MEDS: oxyCODONE 5 MG Tablet 10 MG PO ×2 (10:07→18:19)
--- NOTE | 2017-12-20 10:54 | CASEMGMT ---
Addendum entered by Jeramy Timmons 12/20/17 11:05: Spoke with Patricia from [facility]. Will accept patient. JACK PARRISH recommending consult, they also will see pt @ home. Allan Wound nurse spoke with [facility] re: wound dressing changes. Christian FERNANDEZ RN ACMariano Original Note: JACK PARRISH Note. Spoke with pt re: SNF not approved. Pt plans to return home but is agreeable to have [facility] revisit. Referral made to [facility], they are reviewing chart to see if they can accept. SW consulted re: pt's home environment and any community resources that may be beneficial to pt. Pt states again her home is not clean and those living with her do not assist. -Awaiting to hear from [facility]. MARTA FERNANDEZ CM
[2017-12-20] MEDS: Pantoprazole Sodium 40 MG Tablet PO (11:04)
[2017-12-20] MEDS: Flecainide 150 MG Tablet PO ×2 (11:04→22:31)
[2017-12-20] MEDS: amLODIPine 5 MG Tablet PO (11:05)
[2017-12-20] MEDS: Calcium (Elemental) 500 MG Tablet PO ×2 (11:05→22:31)
[2017-12-20] MEDS: Lisinopril 20 MG Tablet PO (11:05)
[2017-12-20] MEDS: Carvedilol 6.25 MG Tablet PO ×2 (11:05→22:31)
[2017-12-20] MEDS: Loratadine 10 MG Tablet PO (11:05)
[2017-12-20] MEDS: Cyanocobalamin 500 MCG Tablet 2000 MCG PO (11:06)
--- NOTE | 2017-12-20 11:27 | PCM.PN.ID ---
Subjective: Feeling better, no fever, no new rash - Physical Exam General: Alert, Cooperative, No apparent distress Lungs: Clear to auscultation, Normal air movement Cardiovascular: Regular rate, Regular Rhythm Abdomen: Soft, Non Tender, Non-Distended Skin: Ulcer/ Wound - on chin Vital Signs Temp Pulse Resp BP Pulse Ox 97.8 F 102 H 18 149/87 H 96 12/20/17 09:53 12/20/17 09:53 12/20/17 09:53 12/20/17 09:53 12/20/17 09:53 Oxygen Delivery Method Room Air Weight: 107.7 kg Body Mass Index (BMI) 42.0 Finger Stick Blood Glucose 117 Intake and Output for Last 24 Hours 12/18/17 12/19/17 12/20/17 23:59 23:59 23:59 Intake Total 2016 848 / 848 Balance 2016 848 / 848 Microbiology Past 72 Hours 12/18/17 22:15 Gram Stain - Final Skin - Face Wound Culture - Preliminary No growth-Final to follow Laboratory Tests Past 24 Hrs 12/18/17 12/20/17 12/20/17 20:15 05:05 05:05 WBC 6.0 RBC 3.44 L Hgb 9.8 L Hct 32.3 L MCV 93.9 MCH 28.5 MCHC 30.3 L RDW 14.8 H RDW Differential 48.4 H Plt Count 286 MPV 10.9 Immature Gran % (Auto) 0.200 Neut % (Auto) 64.5 Lymph % (Auto) 20.5 [place] % (Auto) 9.3 Eos % (Auto) 4.8 Baso % (Auto) 0.7 Absolute Neuts (auto) 3.9 Absolute Lymphs (auto) 1.24 Total Counted Not Reportable Diff Path Review Reviewed PT 21.4 H INR 1.9 Sodium Potassium Chloride Carbon Dioxide Anion Gap BUN Creatinine Estim Creat Clear Calc Est GFR (MDRD) Af Amer Est GFR (MDRD) Non-Af BUN/Creatinine Ratio Glucose Calcium 12/20/17 05:05 WBC RBC Hgb Hct MCV MCH MCHC RDW RDW Differential Plt Count MPV Immature Gran % (Auto) Neut % (Auto) Lymph % (Auto) [place] % (Auto) Eos % (Auto) Baso % (Auto) Absolute Neuts (auto) Absolute Lymphs (auto) Total Counted Diff Path Review PT INR Sodium 142 Potassium 3.6 Chloride 103 Carbon Dioxide 31.0 Anion Gap 8 BUN 20 H Creatinine 1.13 H Estim Creat Clear Calc 38.87 Est GFR (MDRD) Af Amer 61 Est GFR (MDRD) Non-Af 51 L BUN/Creatinine Ratio 17.7 Glucose 144 H Calcium 7.9 L POC Glucose 12/20/17 12/19/17 12/19/17 08:25 22:29 17:28 POC Glucose 97 155 H 92 12/19/17 12/19/17 16:45 12:27 POC Glucose 94 167 H Medical Necessity - Tobacco Use Smoking Status: Never smoker Tobacco Use: Non-smoker Route of nutrition/ use of supplements: [] Nutritional Intake: [] IV Site: [] Muro Catheter: [] - Assessment/Plan Antibiotics: [] Assessment/Plan: [] MRSA chin abscess and cellulitis - taken to OR 12/[address] Soto. Surg cx now with haemophilis, beta lactamase neg, sphingomonas, and prevotella. Bone cx neg. 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 Sent home on po doxy/keflex, but sx worsened. Now re-admitted, cont vanc/ceftriaxone/flagyl for anaerobic coverage. Wound cx here is negative so far. Some of the drainage/odor could be from dressings, but also from ongoing necrosis due to the cancer. I do not think she will need IV abx at discharge. Will follow
[2017-12-20] MEDS: Dextrose 50%-Water 25 GM/50 ML DISP.SYRIN IV (14:35)
[2017-12-20 14:50] LABS: Bedside Glucose 46 mg/dL (70-110)
[2017-12-20] MEDS: Insulin Lispro 100 UNIT/ML INSULN.PEN 15 UNIT SC (18:14)
[2017-12-20] MEDS: Insulin Lispro 100 UNIT/ML INSULN.PEN SC (18:14)
[2017-12-20 18:25] LABS: Bedside Glucose 143 mg/dL (70-110)
[2017-12-20 18:25] LABS: Bedside Glucose 40 mg/dL (70-110)
[2017-12-20 18:25] LABS: Bedside Glucose 155 mg/dL (70-110)
[2017-12-20 22:12] LABS: Vancomycin, Trough Level 12.3 ug/mL (5.0-15.0)
[2017-12-20] MEDS: traZODone 50 MG Tablet PO (22:29)
[2017-12-20] MEDS: Atorvastatin Calcium 20 MG Tablet PO (22:31)
[2017-12-20] MEDS: Insulin NPH Human 100 UNITS/ML PEN 18 UNITS SC (22:50)
[2017-12-20] MEDS: 0.9% NaCl Peripheral Flush Adult/Peds IV (23:01)
[2017-12-20 23:05] LABS: Bedside Glucose 135 mg/dL (70-110)
[2017-12-21] VITALS (8 sets, daily range): BP systolic 115–143; BP diastolic 61–94; PULSE 60–101; RESP 16–18; TEMP 36.5–36.7; O2SAT 93–98
[2017-12-21] MEDS: 0.9% NaCl Peripheral Flush Adult/Peds IV ×4 (04:45→14:07)
[2017-12-21 04:55] LABS: Bedside Glucose 138 mg/dL (70-110)
--- NOTE | 2017-12-21 05:54 | PCM.RX.CS ---
Consult Pharmacy has been consulted to manage selected antiobiotic: Vancomycin Type of Consult: Follow-up Suspected Infection: Other Labs: Sodium 142 mmol/L (136-145) 12/20/17 05:05 Potassium 3.6 mmol/L (3.5-5.1) 12/20/17 05:05 Chloride 103 mmol/L (98-107) 12/20/17 05:05 Carbon Dioxide 31.0 mmol/L (21.0-32.0) 12/20/17 05:05 Anion Gap 8 (5-15) 12/20/17 05:05 BUN 20 mg/dL (7-18) H 12/20/17 05:05 Creatinine 1.13 mg/dL (0.55-1.02) H 12/20/17 05:05 Est GFR (MDRD) Af Amer 61 mL/min (>60) 12/20/17 05:05 Est GFR (MDRD) Non-Af 51 mL/min (>60) L 12/20/17 05:05 BUN/Creatinine Ratio 17.7 RATIO (10-20) 12/20/17 05:05 Glucose 144 mg/dL (74-106) H 12/20/17 05:05 Vancomycin Trough 12.3 ug/mL (5.0-15.0) 12/20/17 21:31 Microbiology: Microbiology 12/18/17 22:15 Skin - Face Gram Stain - Final 12/18/17 22:15 Skin - Face Wound Culture - Preliminary No growth-Final to follow Pharmacy Plan for Drug Dosing: Pharmacy Service will continue to monitor and adjust dosing as required. THOUGH 12.3 IN RANGE NO CHANGES RECOMENDED AT THIS TIME Follow-Up Labs: Trough Vancomycin Labs to be done on [date and time ordered]: 12/25 @ 6455
[2017-12-21] MEDS: diazePAM 5 MG Tablet 10 MG PO ×3 (06:20→22:06)
[2017-12-21] MEDS: Nystatin Powder 15gm Bottle 1 APPLIC TOPICAL ×3 (06:21→22:08)
[2017-12-21] MEDS: Furosemide 40 MG Tablet 60 MG PO ×3 (06:22→22:07)
[2017-12-21] MEDS: tiZANidine HCl 2 MG Tablet PO ×3 (06:22→22:06)
[2017-12-21] MEDS: Gabapentin 600 MG Tablet PO ×3 (06:23→22:07)
[2017-12-21] MEDS: metroNIDAZOLE 500 MG Tablet PO ×3 (06:23→22:07)
[2017-12-21] MEDS: Morphine 2 MG/ML Syringe IV (06:40)
[2017-12-21 06:41] LABS: International Normalized Ratio 1.9; Prothrombin Time (Protime)PT. 22.2 SECONDS (11.7-14.9)
[2017-12-21] MEDS: Ipratropium/Albuterol Sulfate 3 ML AMPUL.NEB INHALATION ×3 (07:11→19:05)
[2017-12-21 07:36] LABS: Bedside Glucose 157 mg/dL (70-110)
[2017-12-21 07:52] LABS: Absolute Lymphocyte Count 1.23 X10^3/ul (0.83-4.51); Absolute Neutrophil Count 5.6 X10^3/uL (2.0-7.7); Basophil# 0.05 X10^3/uL; Basophil% 0.6 % (0-1); Eosinophil# 0.29 X10^3/uL; Eosinophils% 3.7 % (0-5); Hematocrit 34.9 % (37-47); Hemoglobin 10.5 g/dl (12.0-15.0); Lymphocyte # 1.23 X10^3/ul (4.0); Lymphocyte % 15.7 % (19-41); Mean Corp Hgb Conc 30.1 g/gl (32-36); Mean Corpuscular Hgb 27.6 pg (27.0-32.0); Mean Corpuscular Volume 91.6 fL (81-99); Mean Platelet Vol. 11.3 fl (6.2-12.0); Monocyte% 8.9 % (0-10); Neutrophil # 5.55 X10^3/uL (2.7-7.7); Platelet Count 352 K/mm3 (150-450); RBC Distribution Width SD 50.5 fl (35.1-43.9); Red Blood Count 3.81 M/mm3 (4.2-5.4); White Blood Count 7.8 K/mm3 (4.4-11.0)
[2017-12-21 07:53] LABS: POSITIVE COUNT NO; POSITIVE DIFFERENTIAL NO; POSITIVE MORPHOLOGY NO
[2017-12-21 08:06] LABS: Anion Gap 7 (5-15); BUN 20 mg/dL (7-18); BUN/Creat Ratio 17.1 RATIO (10-20); Calcium,Total 8.2 mg/dL (8.5-10.1); Chloride 103 mmol/L (98-107); Creatinine, Serum 1.17 mg/dL (0.55-1.02); EST Glomerular Filtration Rate 49 mL/min (>60); Est Glom Filt Rate - Afr Amer 59 mL/min (>60); Estimated Creatinine Clearance 37.54 ml/min; Glucose 150 mg/dL (74-106); Sodium Level 139 mmol/L (136-145)
--- NOTE | 2017-12-21 08:46 | PCM.PN.HOSP ---
Subjective: Resting comfortably, pain is controlled, wound care managing with BID wet to dry Objective: General: Alert, Oriented x3, Cooperative, No apparent distress HEENT: Atraumatic, EOMI, Normocephalic Oral: Moist Mucosa Neck: Supple, No JVD Lungs: Clear to auscultation, Normal air movement, No rhonchi, No wheeze, No rales Cardiovascular: Regular rate, Regular Rhythm, Normal S1, Normal S2, No murmurs Abdomen: Soft, Non Tender, Non-Distended, No Hepato-splenomegaly Skin: - - 3 cm wound on her chin, some sloughing is present Psych/Mental Status: Normal Affect, Appropriate Vitals/I&O's: Vital Signs Temp Pulse Resp BP Pulse Ox 98.0 F 83 18 119/66 93 12/21/17 04:45 12/21/17 04:45 12/21/17 04:45 12/21/17 04:45 12/21/17 04:45 Oxygen Delivery Method Room Air Weight: 237 lb 7.005 oz Body Mass Index (BMI) 42.0 Finger Stick Blood Glucose 117 Intake and Output for Last 24 Hours 12/19/17 12/20/17 12/21/17 23:59 23:59 23:59 Intake Total 2016 1648 / 1648 578 / 578 Balance 2016 1648 / 164 578 / 578 Microbiology Past 72 Hours 12/18/17 22:15 Skin - Face Gram Stain - Final 12/18/17 22:15 Skin - Face Wound Culture - Preliminary No growth-Final to follow Laboratory Results 12/18/17 20:15: Diff Path Review Reviewed 12/20/17 14:10: POC Glucose 46 L 12/20/17 14:32: POC Glucose 40 L* 12/20/17 14:43: POC Glucose 143 H 12/20/17 17:51: POC Glucose 155 H 12/20/17 21:31: Vancomycin Trough 12.3 12/20/17 22:44: POC Glucose 135 H 12/21/17 04:39: POC Glucose 138 H 12/21/17 06:05: PT 22.2 H, INR 1.9 12/21/17 06:05: WBC 7.8, RBC 3.81 L, Hgb 10.5 L, Hct 34.9 L, MCV 91.6, MCH 27.6, MCHC 30.1 L, RDW 15.0 H, RDW Differential 50.5 H, Plt Count 352, MPV 11.3, Immature Gran % (Auto) 0.100, Neut % (Auto) 71.0 H, Lymph % (Auto) 15.7 L, [place] % (Auto) 8.9, Eos % (Auto) 3.7, Baso % (Auto) 0.6, Absolute Neuts (auto) 5.6, Absolute Lymphs (auto) 1.23, Total Counted Not Reportable 12/21/17 06:05: Sodium 139, Potassium 4.0, Chloride 103, Carbon Dioxide 29.0, Anion Gap 7, BUN 20 H, Creatinine 1.17 H, Estim Creat Clear Calc 37.54, Est GFR (MDRD) Af Amer 59 L, Est GFR (MDRD) Non-Af 49 L, BUN/Creatinine Ratio 17.1, Glucose 150 H, Calcium 8.2 L 12/21/17 07:29: POC Glucose 157 H Current Medications Acetaminophen (Tylenol) 650 mg PO Q6H PRN PRN PRN Reason: Mild Pain (scale 0-3)/T>100.7 Al Hydroxide/Mg Hydroxide (Mylanta Ii) 30 ml PO Q6H PRN PRN PRN Reason: Gastric burning Albuterol Sulfate (Ventolin Aerosols) 2.5 mg INHALATION Q2H PRN PRN PRN Reason: dyspnea, wheezing Albuterol/Ipratropium (Duoneb) 3 ml INHALATION Q6HWA.RT [facility] Last Admin: 12/21/17 07:11 Dose: 3 ml Amlodipine Besylate (Norvasc) 5 mg PO DAILY [facility] Last Admin: 12/20/17 11:05 Dose: 5 mg Aspirin (Aspirin, Baby) 81 mg PO DAILY@0800 [facility] Last Admin: 12/20/17 08:30 Dose: 81 mg Atorvastatin Calcium (Lipitor) 20 mg PO QHS [facility] Last Admin: 12/20/17 22:31 Dose: 20 mg Calcium Carbonate (Os-Kirill 500) 500 mg PO BID [facility] Last Admin: 12/20/17 22:31 Dose: 500 mg Carvedilol (Coreg) 6.25 mg PO BID [facility] Last Admin: 12/20/17 22:31 Dose: 6.25 mg Cyanocobalamin (Vitamin B12) 2,000 mcg PO DAILY [facility] Last Admin: 12/20/17 11:06 Dose: 2,000 mcg Dextrose (D50w Syringe) 0 gm IV X1 PRN; Protocol PRN Reason: Hypoglycemia Last Admin: 12/20/17 14:35 Dose: 25 gm Diazepam (Valium) 10 mg PO TID [facility] Last Admin: 12/21/17 06:20 Dose: 10 mg Diphenoxylate HCl/Atropine (Lomotil) 1 tablet PO Q6H PRN PRN PRN Reason: Diarrhea Ferrous Sulfate (Ferrous Sulfate) 325 mg PO DAILY@0800 [facility] Last Admin: 12/20/17 08:30 Dose: 325 mg Flecainide Acetate (Tambocor) 150 mg PO Q12 [facility] Last Admin: 12/20/17 22:31 Dose: 150 mg Folic Acid (Folic Acid) 1 mg PO DAILY@0800 [facility] Last Admin: 12/20/17 08:30 Dose: 1 mg Furosemide (Lasix) 60 mg PO TID [facility] Last Admin: 12/21/17 06:22 Dose: 60 mg Gabapentin (Neurontin) 600 mg PO TID [facility] Last Admin: 12/21/17 06:23 Dose: 600 mg Glucagon () 1 mg IM .X1 PRN PRN Reason: Hypoglycemia Vancomycin IV Pharmacy to Dose (1 ea/ Sodium Chloride) 500 mls @ 250 mls/hr IV X1 PRN; Protocol PRN Reason: Rx to Dose Ceftriaxone Sodium 2 gm/ (Dextrose) 50 mls @ 100 mls/hr IV Q24 [facility] Last Admin: 12/20/17 10:00 Dose: 100 mls/hr Sodium Chloride () 250 mls @ 15 mls/hr IV .[id number] PRN PRN Reason: SALINE FLUSH Vancomycin HCl 1,250 mg/ (Sodium Chloride) 275 mls @ 167 mls/hr IV Q24H [facility] Last Admin: 12/20/17 22:29 Dose: 167 mls/hr Insulin Human Lispro (Humalog Kwikpen (Bkc)) 10 unit SC LUNCH [facility] Last Admin: 12/20/17 17:14 Dose: Not Given Insulin Human Lispro (Humalog Kwikpen (Bkc)) 0 unit SC ACHS [facility]; Protocol Last Admin: 12/20/17 22:49 Dose: Not Given Insulin Human Lispro (Humalog Kwikpen (Bkc)) 15 unit SC DINNER [facility] Last Admin: 12/20/17 18:14 Dose: 15 units Insulin Human Lispro (Humalog Kwikpen (Bk)) 24 unit SC BREAKFAST [facility] Last Admin: 12/20/17 08:31 Dose: 24 unit Insulin Human NPH (Humulin N (Bk)) 18 units SC QPM [facility] Last Admin: 12/20/17 22:50 Dose: 18 u Insulin Human NPH (Humulin N (Bk)) 10 units SC DAILY@0730 [facility] Last Admin: 12/20/17 08:30 Dose: 10 u Ipratropium [place] (Atrovent Nasal Carefree (G)) 2 spray NASAL BID [facility] Last Admin: 12/20/17 22:36 Dose: 2 spray Lisinopril (Zestril) 20 mg PO DAILY [facility] Last Admin: 12/20/17 11:05 Dose: 20 mg Loratadine (Claritin) 10 mg PO DAILY [facility] Last Admin: 12/20/17 11:05 Dose: 10 mg Magnesium Hydroxide (Milk Of Magnesia) 30 ml PO DAILY PRN PRN PRN Reason: Constipation Metronidazole (Flagyl) 500 mg PO TID [facility] Last Admin: 12/21/17 06:23 Dose: 500 mg Morphine Sulfate () 1 - 2 mg IV Q4H PRN PRN PRN Reason: Moderate Pain (pain scale 4-5) Last Admin: 12/21/17 06:40 Dose: 2 mg Morphine Sulfate () 2 - 4 mg IV Q3H PRN PRN PRN Reason: Severe Pain (pain scale 6-10) Last Admin: 12/20/17 04:02 Dose: 4 mg Nystatin (Mycostatin Powder) 1 applic TOPICAL TID [facility]; Protocol Last Admin: 12/21/17 06:21 Dose: 1 applicatio Ondansetron HCl (Zofran) 4 mg IV Q8H PRN PRN PRN Reason: NAUSEA Oxycodone HCl (Oxyir) 10 mg PO Q4H PRN PRN PRN Reason: Moderate Pain (pain scale 4-5) Last Admin: 12/20/17 18:19 Dose: 10 mg Pantoprazole Sodium (Protonix) 40 mg PO DAILY [facility] Last Admin: 12/20/17 11:04 Dose: 40 mg Potassium Chloride (K-Dur) 40 meq PO DAILY [facility] Last Admin: 12/20/17 11:05 Dose: 40 meq Promethazine HCl (Phenergan) 12.5 mg IV Q6H PRN PRN PRN Reason: NAUSEA/VOMITING Sodium Chloride () 5 - 30 ml IV UD PRN PRN Reason: SALINE FLUSH Last Admin: 12/21/17 06:40 Dose: 10 ml Tizanidine HCl (Zanaflex) 2 mg PO TID [facility] Last Admin: 12/21/17 06:22 Dose: 2 mg Trazodone HCl (Desyrel) 50 mg PO QHS [facility] Last Admin: 12/20/17 22:29 Dose: 50 mg Warfarin Sodium (Coumadin (Pbkc)) 7.5 mg PO TuWeTh@1700 [facility]; Protocol Last Admin: 12/20/17 18:13 Dose: 7.5 mg Warfarin Sodium (Coumadin (Pbkc)) 10 mg PO SuMoFrSa@1700 [facility] Last Admin: 12/19/17 16:51 Dose: 10 mg Medical Necessity - Tobacco Use Smoking Status: Never smoker Tobacco Use: Non-smoker Assessment/Plan All Active Problems (Last Reviewed 12/04/17 @ 01:53 by Sanjay Rhodes MD) Osteomyelitis of mandible (Acute) Abscess of chin (Acute) Methicillin resistant Staphylococcus aureus infection (Acute) Facial cellulitis (Acute) History of facial surgery (Resolved) History of tonsillectomy (Resolved) History of bilateral knee replacement (Resolved) History of cataract extraction (Resolved) History of syncope (Acute) Syncope (Acute) Acute asthmatic bronchitis (Resolved) Acute exacerbation of CHF (congestive heart failure) (Resolved) Atrial fibrillation with RVR (Resolved) Paroxysmal A-fib (Resolved) SOB (shortness of breath) (Resolved) 1. 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 Chronic diastolic CHF/CKD3/A-fib/HTN/HLD/NICKOLAS - LV EF is 70% - c/w statin, norvasc, lisinopril, lasix, metolazone, coreg and coumadin - INR today 1.9, c/w felcainide for the afib - Cr is at baseline currently, will continue to monitor - given the wound, CPAP is not feasable, can use nocturnal O2 if necessary 3. Chronic COPD - stable - c/w home inhalers 4. DM2 - Hold home oral medications, c/w home insulin - c/w SSI, BG 157 this morning 5. GERD - stable - c/w PPI 6. Anxiety/Depression - stable - c/w home diazepam and trazodone 7. Iron deficiency anemia - H/H is stable - c/w home iron DVT: SCDs and Coumadin Diet: Calorie controlled Code Visit Inpatient E&M: 98044 Subs Hosp L2
--- NOTE | 2017-12-21 08:49 | PN_ITS ---
Subjective: Resting comfortably, pain is controlled, wound care managing with BID wet to dry Objective: General: Alert, Oriented x3, Cooperative, No apparent distress HEENT: Atraumatic, EOMI, Normocephalic Oral: Moist Mucosa Neck: Supple, No JVD Lungs: Clear to auscultation, Normal air movement, No rhonchi, No wheeze, No rales Cardiovascular: Regular rate, Regular Rhythm, Normal S1, Normal S2, No murmurs Abdomen: Soft, Non Tender, Non-Distended, No Hepato-splenomegaly Skin: - - 3 cm wound on her chin, some sloughing is present Psych/Mental Status: Normal Affect, Appropriate Vitals/I&O's: Vital Signs Temp Pulse Resp BP Pulse Ox 98.0 F 83 18 119/66 93 12/21/17 04:45 12/21/17 04:45 12/21/17 04:45 12/21/17 04:45 12/21/17 04:45 Oxygen Delivery Method Room Air Weight: 237 lb 7.005 oz Body Mass Index (BMI) 42.0 Finger Stick Blood Glucose 117 Intake and Output for Last 24 Hours 12/19/17 12/20/17 12/21/17 23:59 23:59 23:59 Intake Total 2016 1648 / 1648 578 / 578 Balance 2016 1648 / 164 578 / 578 Microbiology Past 72 Hours 12/18/17 22:15 Skin - Face Gram Stain - Final 12/18/17 22:15 Skin - Face Wound Culture - Preliminary No growth-Final to follow Laboratory Results 12/18/17 20:15: Diff Path Review Reviewed 12/20/17 14:10: POC Glucose 46 L 12/20/17 14:32: POC Glucose 40 L* 12/20/17 14:43: POC Glucose 143 H 12/20/17 17:51: POC Glucose 155 H 12/20/17 21:31: Vancomycin Trough 12.3 12/20/17 22:44: POC Glucose 135 H 12/21/17 04:39: POC Glucose 138 H 12/21/17 06:05: PT 22.2 H, INR 1.9 12/21/17 06:05: WBC 7.8, RBC 3.81 L, Hgb 10.5 L, Hct 34.9 L, MCV 91.6, MCH 27.6, MCHC 30.1 L, RDW 15.0 H, RDW Differential 50.5 H, Plt Count 352, MPV 11.3, Immature Gran % (Auto) 0.100, Neut % (Auto) 71.0 H, Lymph % (Auto) 15.7 L, [place] % (Auto) 8.9, Eos % (Auto) 3.7, Baso % (Auto) 0.6, Absolute Neuts (auto) 5.6, Absolute Lymphs (auto) 1.23, Total Counted Not Reportable 12/21/17 06:05: Sodium 139, Potassium 4.0, Chloride 103, Carbon Dioxide 29.0, Anion Gap 7, BUN 20 H, Creatinine 1.17 H, Estim Creat Clear Calc 37.54, Est GFR (MDRD) Af Amer 59 L, Est GFR (MDRD) Non-Af 49 L, BUN/Creatinine Ratio 17.1, Glucose 150 H, Calcium 8.2 L 12/21/17 07:29: POC Glucose 157 H Current Medications Acetaminophen (Tylenol) 650 mg PO Q6H PRN PRN PRN Reason: Mild Pain (scale 0-3)/T>100.7 Al Hydroxide/Mg Hydroxide (Mylanta Ii) 30 ml PO Q6H PRN PRN PRN Reason: Gastric burning Albuterol Sulfate (Ventolin Aerosols) 2.5 mg INHALATION Q2H PRN PRN PRN Reason: dyspnea, wheezing Albuterol/Ipratropium (Duoneb) 3 ml INHALATION Q6HWA.RT [facility] Last Admin: 12/21/17 07:11 Dose: 3 ml Amlodipine Besylate (Norvasc) 5 mg PO DAILY [facility] Last Admin: 12/20/17 11:05 Dose: 5 mg Aspirin (Aspirin, Baby) 81 mg PO DAILY@0800 [facility] Last Admin: 12/20/17 08:30 Dose: 81 mg Atorvastatin Calcium (Lipitor) 20 mg PO QHS [facility] Last Admin: 12/20/17 22:31 Dose: 20 mg Calcium Carbonate (Os-Kirill 500) 500 mg PO BID [facility] Last Admin: 12/20/17 22:31 Dose: 500 mg Carvedilol (Coreg) 6.25 mg PO BID [facility] Last Admin: 12/20/17 22:31 Dose: 6.25 mg Cyanocobalamin (Vitamin B12) 2,000 mcg PO DAILY [facility] Last Admin: 12/20/17 11:06 Dose: 2,000 mcg Dextrose (D50w Syringe) 0 gm IV X1 PRN; Protocol PRN Reason: Hypoglycemia Last Admin: 12/20/17 14:35 Dose: 25 gm Diazepam (Valium) 10 mg PO TID [facility] Last Admin: 12/21/17 06:20 Dose: 10 mg Diphenoxylate HCl/Atropine (Lomotil) 1 tablet PO Q6H PRN PRN PRN Reason: Diarrhea Ferrous Sulfate (Ferrous Sulfate) 325 mg PO DAILY@0800 [facility] Last Admin: 12/20/17 08:30 Dose: 325 mg Flecainide Acetate (Tambocor) 150 mg PO Q12 [facility] Last Admin: 12/20/17 22:31 Dose: 150 mg Folic Acid (Folic Acid) 1 mg PO DAILY@0800 [facility] Last Admin: 12/20/17 08:30 Dose: 1 mg Furosemide (Lasix) 60 mg PO TID [facility] Last Admin: 12/21/17 06:22 Dose: 60 mg Gabapentin (Neurontin) 600 mg PO TID [facility] Last Admin: 12/21/17 06:23 Dose: 600 mg Glucagon () 1 mg IM .X1 PRN PRN Reason: Hypoglycemia Vancomycin IV Pharmacy to Dose (1 ea/ Sodium Chloride) 500 mls @ 250 mls/hr IV X1 PRN; Protocol PRN Reason: Rx to Dose Ceftriaxone Sodium 2 gm/ (Dextrose) 50 mls @ 100 mls/hr IV Q24 [facility] Last Admin: 12/20/17 10:00 Dose: 100 mls/hr Sodium Chloride () 250 mls @ 15 mls/hr IV .[id number] PRN PRN Reason: SALINE FLUSH Vancomycin HCl 1,250 mg/ (Sodium Chloride) 275 mls @ 167 mls/hr IV Q24H [facility] Last Admin: 12/20/17 22:29 Dose: 167 mls/hr Insulin Human Lispro (Humalog Kwikpen (Bkc)) 10 unit SC LUNCH [facility] Last Admin: 12/20/17 17:14 Dose: Not Given Insulin Human Lispro (Humalog Kwikpen (Bkc)) 0 unit SC ACHS [facility]; Protocol Last Admin: 12/20/17 22:49 Dose: Not Given Insulin Human Lispro (Humalog Kwikpen (Bkc)) 15 unit SC DINNER [facility] Last Admin: 12/20/17 18:14 Dose: 15 units Insulin Human Lispro (Humalog Kwikpen (Bk)) 24 unit SC BREAKFAST [facility] Last Admin: 12/20/17 08:31 Dose: 24 unit Insulin Human NPH (Humulin N (Bk)) 18 units SC QPM [facility] Last Admin: 12/20/17 22:50 Dose: 18 u Insulin Human NPH (Humulin N (Bk)) 10 units SC DAILY@0730 [facility] Last Admin: 12/20/17 08:30 Dose: 10 u Ipratropium [place] (Atrovent Nasal Carbon (G)) 2 spray NASAL BID [facility] Last Admin: 12/20/17 22:36 Dose: 2 spray Lisinopril (Zestril) 20 mg PO DAILY [facility] Last Admin: 12/20/17 11:05 Dose: 20 mg Loratadine (Claritin) 10 mg PO DAILY [facility] Last Admin: 12/20/17 11:05 Dose: 10 mg Magnesium Hydroxide (Milk Of Magnesia) 30 ml PO DAILY PRN PRN PRN Reason: Constipation Metronidazole (Flagyl) 500 mg PO TID [facility] Last Admin: 12/21/17 06:23 Dose: 500 mg Morphine Sulfate () 1 - 2 mg IV Q4H PRN PRN PRN Reason: Moderate Pain (pain scale 4-5) Last Admin: 12/21/17 06:40 Dose: 2 mg Morphine Sulfate () 2 - 4 mg IV Q3H PRN PRN PRN Reason: Severe Pain (pain scale 6-10) Last Admin: 12/20/17 04:02 Dose: 4 mg Nystatin (Mycostatin Powder) 1 applic TOPICAL TID [facility]; Protocol Last Admin: 12/21/17 06:21 Dose: 1 applicatio Ondansetron HCl (Zofran) 4 mg IV Q8H PRN PRN PRN Reason: NAUSEA Oxycodone HCl (Oxyir) 10 mg PO Q4H PRN PRN PRN Reason: Moderate Pain (pain scale 4-5) Last Admin: 12/20/17 18:19 Dose: 10 mg Pantoprazole Sodium (Protonix) 40 mg PO DAILY [facility] Last Admin: 12/20/17 11:04 Dose: 40 mg Potassium Chloride (K-Dur) 40 meq PO DAILY [facility] Last Admin: 12/20/17 11:05 Dose: 40 meq Promethazine HCl (Phenergan) 12.5 mg IV Q6H PRN PRN PRN Reason: NAUSEA/VOMITING Sodium Chloride () 5 - 30 ml IV UD PRN PRN Reason: SALINE FLUSH Last Admin: 12/21/17 06:40 Dose: 10 ml Tizanidine HCl (Zanaflex) 2 mg PO TID [facility] Last Admin: 12/21/17 06:22 Dose: 2 mg Trazodone HCl (Desyrel) 50 mg PO QHS [facility] Last Admin: 12/20/17 22:29 Dose: 50 mg Warfarin Sodium (Coumadin (Pbkc)) 7.5 mg PO TuWeTh@1700 [facility]; Protocol Last Admin: 12/20/17 18:13 Dose: 7.5 mg Warfarin Sodium (Coumadin (Pbkc)) 10 mg PO SuMoFrSa@1700 [facility] Last Admin: 12/19/17 16:51 Dose: 10 mg Medical Necessity - Tobacco Use Smoking Status: Never smoker Tobacco Use: Non-smoker Assessment/Plan All Active Problems (Last Reviewed 12/04/17 @ 01:53 by Sanjay Rhodes MD) Osteomyelitis of mandible (Acute) Abscess of chin (Acute) Methicillin resistant Staphylococcus aureus infection (Acute) Facial cellulitis (Acute) History of facial surgery (Resolved) History of tonsillectomy (Resolved) History of bilateral knee replacement (Resolved) History of cataract extraction (Resolved) History of syncope (Acute) Syncope (Acute) Acute asthmatic bronchitis (Resolved) Acute exacerbation of CHF (congestive heart failure) (Resolved) Atrial fibrillation with RVR (Resolved) Paroxysmal A-fib (Resolved) SOB (shortness of breath) (Resolved) 1. 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 Chronic diastolic CHF/CKD3/A-fib/HTN/HLD/NICKOLAS - LV EF is 70% - c/w statin, norvasc, lisinopril, lasix, metolazone, coreg and coumadin - INR today 1.9, c/w felcainide for the afib - Cr is at baseline currently, will continue to monitor - given the wound, CPAP is not feasable, can use nocturnal O2 if necessary 3. Chronic COPD - stable - c/w home inhalers 4. DM2 - Hold home oral medications, c/w home insulin - c/w SSI, BG 157 this morning 5. GERD - stable - c/w PPI 6. Anxiety/Depression - stable - c/w home diazepam and trazodone 7. Iron deficiency anemia - H/H is stable - c/w home iron DVT: SCDs and Coumadin Diet: Calorie controlled Code Visit Inpatient E&M: 44387 Subs Hosp L2
[2017-12-21] MEDS: Insulin Lispro 100 UNIT/ML INSULN.PEN SC ×3 (09:10→22:08)
[2017-12-21] MEDS: Cyanocobalamin 500 MCG Tablet 2000 MCG PO (09:11)
[2017-12-21] MEDS: Ferrous Sulfate 325 MG Tablet PO (09:11)
[2017-12-21] MEDS: Ipratropium Bromide 0.06% NASAL SPRAY 2 SPRAY NASAL ×2 (09:11→22:09)
[2017-12-21] MEDS: Folic Acid 1 MG Tablet PO (09:12)
[2017-12-21] MEDS: Calcium (Elemental) 500 MG Tablet PO ×2 (09:12→22:06)
[2017-12-21] MEDS: Aspirin 81 MG TAB.CHEW PO (09:12)
[2017-12-21] MEDS: amLODIPine 5 MG Tablet PO (09:12)
[2017-12-21] MEDS: Carvedilol 6.25 MG Tablet PO ×2 (09:12→22:07)
[2017-12-21] MEDS: Loratadine 10 MG Tablet PO (09:12)
[2017-12-21] MEDS: Pantoprazole Sodium 40 MG Tablet PO (09:13)
[2017-12-21] MEDS: Lisinopril 20 MG Tablet PO (09:16)
--- NOTE | 2017-12-21 10:26 | CASEMGMT ---
Addendum entered by Lorene Vidal 12/21/17 11:54: SW spoke w/pt, she is in agreement w/appealing the decision of insurance, does not feel she can go home. SW explained that if insurance still denies pt, would she want to pay privately or apply to Medicaid. Pt would be agreeable to applying for Medicaid. SW asked also about the possibility of pt going to her brother's home. Pt states she actually would want to do this, but does not know if her brother is in agreement with this. SW explained will start with the appeal and go from there. SW left a message for Kay Velez at [facility], she called back and states that pt was not denied, she states that she did not agree w/SNF level of care. She states that if more clinical information is available, for SW to fax it. Kay Velez states that even if she does not agree with the level of care, it still can be submitted for precert. SW explained will fax additional information to her for review. SW will write up a note to fax to [facility] regarding pt's social situation and include this with the additional clinical information. ALESIA Brizuela, COMMUNICATION STUDIES PROFESSOR Original Note: As per RN, pt would like SW to call his brother, Brijesh Abel. SW attempted to speak w/pt, however she is sleeping soundly. SW called pt at home, states to try pt on his cell. SW called cell, which is actually his work number. SW spoke w/pt's brother regarding discharge plan. Pt's brother states that pt can't go home. He states pt lives with two guys who are mental cases and can't care for her. He states her house is [place], is surprised when the visiting nurse came out to see her last week they did not turn it in to adult services. He states she has dogs, and mice. She has an rn tele now, so they are down from from catching 75-100/month to 15-50/month. He states she only made it a week at home, and he thought she was going to . He also states she fell twice at home since the last discharge. He states out of all the people he knows she needs rehab more than anyone. SW explained to pt's brother that we can see if the physician would appeal the denial, however pt does not have a lot of skilled needs and it may still be denied. SW explained the other options would be for pt to pay for the detention privately or apply for Medicaid. Pt's brother states pt has a pension and other than that she has no money. SW explained will need to speak w/the pt first as ultimately this would be her decision. Pt's brother asked SW to call him back once this is all figured out. SW called [facility], there is still a bed available. SW will speak w/pt shortly. ALESIA Brizuela, COMMUNICATION STUDIES PROFESSOR
[2017-12-21 11:10] LABS: Bedside Glucose 129 mg/dL (70-110)
--- NOTE | 2017-12-21 11:58 | CASEMGMT ---
SW spoke w/Mercedez from [facility], she states O can review additional clinical information to reconsider if pt would qualify for SNF level of care. SW spoke w/pt and w/her brother. Pt was here recently from 12/03-12/10 and went home from with home health. Pt fell the first day being home, and almost fell a second time. Prior to these hospitalizations, pt was fully independent, no DME needed. At present, pt is weaker than her baseline, using a walker at times, unsteady at times and would have a difficult time caring for herself at home--as per patient and patient's brother. She is having difficulty in getting meals as well. Pt lives with two roommates who are not able to assist pt at all. As per both pt and her brother, her home is not clean, and her roommates are not able to assist in the cleaning of the home. Pt has dogs and birds as pets, and the roommates are not helping to clean up after them. Also, pt has mice--there is an flight attendant inflight services and the problem has gotten better, but this is an ongoing issue. Pt needs daily dressing changes on her chin as well, which she tried to do when home last week and had a difficult time. Again, her roommates were to help her but they are not able. For all of these reasons, it would benefit the pt to go to a jail level of care for 1-2 weeks. 1. Pt was readmitted and was not able to manage at home after being discharged on December 10, pt is at risk for readmission. 2. Daily dressing changes are needed and pt has no assist at home, does not feel she can do this herself. 3. PT/OT would benefit pt, as though she at times is walking without assist, this is inconsistent. She is not at her baseline, using a walker at times and has fallen since home after 12/10. ALESIA Brizuela, DIGITAL PHOTOGRAPHIC PRINTER
--- NOTE | 2017-12-21 12:22 | CASEMGMT ---
Addendum entered by Lorene Vidal 12/21/17 13:08: SW spoke w/pt in room, explained to her that we are still working on the approval w/insurance, and that pt was not actually denied by insurance, that it's a 2 tier approval process. SW called pt's brother back(cell # is [phone]) let him know via voicemail that we are still working on the approval w/pt's insurance and will continue to work on this, that it is a two tier process. SW will continue to follow. ALESIA Brizuela, PACKAGING OPERATOR Original Note: Prior note, along with updated PT/OT and wound care information faxed to [facility] for review. Kay Velez is to call this SW back and let this SW know if she thinks pt will qualify for SNF level of care. Once SW hears back from Kay Velez at [facility], regardless of Kay Velez's determination, then IZABELLA will let Willa know to start precert. ALESIA Brizuela, PACKAGING OPERATOR
--- NOTE | 2017-12-21 13:25 | PN.ID_ITS ---
Subjective: Feeling ok, no fever. No n/v/d. - Physical Exam General: Alert, Cooperative, No apparent distress Lungs: Clear to auscultation, Normal air movement Cardiovascular: Regular rate, Regular Rhythm Abdomen: Soft, Non Tender, Non-Distended Skin: Ulcer/ Wound Vital Signs Temp Pulse Resp BP Pulse Ox 97.7 F L 60 16 115/61 94 12/21/17 09:00 12/21/17 09:01 12/21/17 09:00 12/21/17 09:00 12/21/17 09:00 Oxygen Delivery Method Room Air Weight: 107.7 kg Body Mass Index (BMI) 42.0 Finger Stick Blood Glucose 117 Intake and Output for Last 24 Hours 12/19/17 12/20/17 12/21/17 23:59 23:59 23:59 Intake Total 2016 1648 / 1648 578 / 578 Balance 2016 1648 / 1648 578 / 578 Microbiology Past 72 Hours 12/18/17 22:15 Gram Stain - Final Skin - Face Wound Culture - Final Presumptive C albicans Laboratory Tests Past 24 Hrs 12/20/17 12/21/17 12/21/17 21:31 06:05 06:05 WBC 7.8 RBC 3.81 L Hgb 10.5 L Hct 34.9 L MCV 91.6 MCH 27.6 MCHC 30.1 L RDW 15.0 H RDW Differential 50.5 H Plt Count 352 MPV 11.3 Immature Gran % (Auto) 0.100 Neut % (Auto) 71.0 H Lymph % (Auto) 15.7 L Buchanan % (Auto) 8.9 Eos % (Auto) 3.7 Baso % (Auto) 0.6 Absolute Neuts (auto) 5.6 Absolute Lymphs (auto) 1.23 Total Counted Not Reportable PT 22.2 H INR 1.9 Sodium Potassium Chloride Carbon Dioxide Anion Gap BUN Creatinine Estim Creat Clear Calc Est GFR (MDRD) Af Amer Est GFR (MDRD) Non-Af BUN/Creatinine Ratio Glucose Calcium Vancomycin Trough 12.3 12/21/17 06:05 WBC RBC Hgb Hct MCV MCH MCHC RDW RDW Differential Plt Count MPV Immature Gran % (Auto) Neut % (Auto) Lymph % (Auto) Buchanan % (Auto) Eos % (Auto) Baso % (Auto) Absolute Neuts (auto) Absolute Lymphs (auto) Total Counted PT INR Sodium 139 Potassium 4.0 Chloride 103 Carbon Dioxide 29.0 Anion Gap 7 BUN 20 H Creatinine 1.17 H Estim Creat Clear Calc 37.54 Est GFR (MDRD) Af Amer 59 L Est GFR (MDRD) Non-Af 49 L BUN/Creatinine Ratio 17.1 Glucose 150 H Calcium 8.2 L Vancomycin Trough POC Glucose 12/21/17 12/21/17 12/21/17 11:03 07:29 04:39 POC Glucose 129 H 157 H 138 H 12/20/17 12/20/17 12/20/17 22:44 17:51 14:43 POC Glucose 135 H 155 H 143 H 12/20/17 12/20/17 14:32 14:10 POC Glucose 40 L* 46 L Medical Necessity - Tobacco Use Smoking Status: Never smoker Tobacco Use: Non-smoker Route of nutrition/ use of supplements: [] Nutritional Intake: [] IV Site: [] Muro Catheter: [] - Assessment/Plan Antibiotics: [] Assessment/Plan: [] MRSA chin abscess and cellulitis - taken to OR 12/[address] Soto. Surg cx now with haemophilis, beta lactamase neg, sphingomonas, and prevotella. Bone cx neg. 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 Sent home on po doxy/keflex, but sx worsened. Now re-admitted, narrowed abx to keflex/flagyl. Wound cx here is negative so far. Some of the drainage/odor could be from dressings, but also from ongoing necrosis due to the cancer. I do not think she will need abx at discharge. Will follow, d/w primary team and wound vare
[2017-12-21] MEDS: Flecainide 150 MG Tablet PO ×2 (14:26→22:07)
--- NOTE | 2017-12-21 14:26 | CASEMGMT ---
SW spoke w/Kay Velez from [facility] ([phone]), asking for PT notes using an assistive device, as she states it appears to be a safety issue pt was walked without an assistive device. IZABELLA called PT, asked them to see pt with a walker and write another note. Once this is done, it will be [place] [facility][phone][place] IZABELLA will continue to follow. ALESIA Brizuela, METER SETTER
[2017-12-21 17:26] LABS: Bedside Glucose 184 mg/dL (70-110)
[2017-12-21] MEDS: Insulin Lispro 100 UNIT/ML INSULN.PEN 15 UNIT SC (17:57)
[2017-12-21] MEDS: oxyCODONE 5 MG Tablet 10 MG PO ×2 (18:05→22:07)
[2017-12-21] MEDS: Cephalexin 500 MG Capsule PO (22:06)
[2017-12-21] MEDS: traZODone 50 MG Tablet PO (22:06)
[2017-12-21] MEDS: Atorvastatin Calcium 20 MG Tablet PO (22:07)
[2017-12-21] MEDS: Insulin NPH Human 100 UNITS/ML PEN 18 UNITS SC (22:11)
[2017-12-21 22:35] LABS: Bedside Glucose 167 mg/dL (70-110)
[2017-12-22] VITALS (8 sets, daily range): BP systolic 91–138; BP diastolic 48–85; PULSE 70–85; RESP 14–20; TEMP 36.3–36.6; O2SAT 92–96
[2017-12-22] MEDS: diazePAM 5 MG Tablet 10 MG PO ×3 (05:02→22:16)
[2017-12-22] MEDS: metroNIDAZOLE 500 MG Tablet PO ×3 (05:02→22:15)
[2017-12-22] MEDS: Gabapentin 600 MG Tablet PO ×3 (05:02→22:16)
[2017-12-22] MEDS: Furosemide 40 MG Tablet 60 MG PO ×3 (05:02→22:15)
[2017-12-22] MEDS: oxyCODONE 5 MG Tablet 10 MG PO ×3 (05:02→22:17)
[2017-12-22] MEDS: tiZANidine HCl 2 MG Tablet PO ×3 (05:02→22:16)
[2017-12-22] MEDS: Nystatin Powder 15gm Bottle 1 APPLIC TOPICAL ×3 (05:03→22:16)
[2017-12-22 06:17] LABS: International Normalized Ratio 2.3
[2017-12-22] MEDS: Ipratropium/Albuterol Sulfate 3 ML AMPUL.NEB INHALATION ×3 (06:50→19:21)
[2017-12-22 09:15] LABS: Bedside Glucose 152 mg/dL (70-110)
--- NOTE | 2017-12-22 09:46 | PCM.TXEXTCAR ---
- Diet 12/18/17 23:17 Diet: Calorie Controlled How many daily calories?: 1800 calorie - Wound(s) CHIN Wound Type: open surgical wound s/p I&D Dressing Change: Wet to Dry Dressing - Allergies/Procedures Done in Hospital Allergies/Adverse Reactions: Allergies ampicillin Allergy (Severe, Verified 12/18/17 19:41) Anaphylaxis hydrocodone bitartrate [From Vicodin] Allergy (Severe, Verified 12/18/17 19:41) Itching Penicillins Allergy (Severe, Verified 12/18/17 19:41) Anaphylaxis clarithromycin [From Biaxin] Allergy (Verified 12/18/17 19:41) Rash Red and itchy venom-honey bee [bee venom (honey bee)] Allergy (Verified 12/18/17 19:41) Nausea/Vom/Diarrhea - Type of Care/Length of Stay Estimated LOS: Convalescent Care Less Than 30 days Type of Care Needed: Skilled Rehab Potential: Good Prognosis: Good - Additional Orders/Day of Discharge Day of Discharge: 12/22/17 - Dietary and Speech Recommendations Dietitian Recommendations/Changes: Rec diet change to 1800 jasmin Cardiac soft - Follow Up Care Primary Care Physician: Nigel Hoang Jr., MD [Primary Care Provider] -
--- NOTE | 2017-12-22 09:47 | PCM.DC.SUM ---
Discharge Date and Diagnosis Date of Admission: 12/18/17 Date of Discharge: 12/22/17 - Secondary Discharge Diagnosis Chronic Problems (Last Reviewed 12/04/17 @ 01:53 by Sanjay Rhodes MD) Personal history of malignant neoplasm of other sites of lip, oral cavity, and pharynx (Chronic) Personal history of skin cancer (Chronic) Asthma (Chronic) Obesity (Chronic) Atrial enlargement, left (Chronic) BMI 40.0-44.9, adult (Chronic) Chronic diastolic (congestive) heart failure (Chronic) Diastolic dysfunction (Chronic) Sinus bradycardia (Chronic) Fatigue (Chronic) Long-term use of high-risk medication (Chronic) Bilateral lower extremity edema (Chronic) History of cardioversion (Chronic ~10/01/16) H/O right and left heart catheterization (Chronic ~05/15/15) H/O basal cell carcinoma excision (Chronic) Recurrent basal cell carcinoma following excision (Chronic) Persistent atrial fibrillation (Chronic) Chronic diastolic heart failure (Chronic) residential (current) use of anticoagulants (Chronic) HTN (hypertension) (Chronic) HLD (hyperlipidemia) (Chronic) Diabetes mellitus (Chronic) COPD (chronic obstructive pulmonary disease) (Chronic) NICKOLAS (obstructive sleep apnea) (Chronic) Morbid obesity (Chronic) Basal cell carcinoma of face (Chronic) Left face-has had 2 surgeries so far the first in February of 2015 Hospital Course and Treatment Imaging Results: None Consultations 12/18/17 23:17 Consult: Onc/Wound/recreational sports director Routine Comment: Infectious Disease Plastic Surgery Operations: None Procedures: None Summary of Care Provided: HPI: The patient is a 67 y/o F w/ PMHx: CKD stage III, Fe deficiency anemia, Diabetes mellitus type II w/ Neuropathy, HTN, HLD, Anxiety and Depression, NICKOLAS, PAF, Diastolic CHF, Morbid Obesity, Chronic COPD, Hx Basal Cell CA and 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 ED on 12/18/17 with increased yellow and brown foul smelling drainage, ruptured loculations opened upon recent packing, ongoing severe pain, chills as well as nausea and emesis now x 2 days. In the ED workup included T 98.4, heart rate 97, BP 148/104, respiratory rate 15, 98% on room air, CBC with WBC 9.1, hemoglobin 11.2, platelet 454 without market shift, ESR 44, coags not obtained, BMP with BUN/creatinine 21/1.13, CRP 6.39, wound culture and blood culture obtained per ED. In the ED patient administered normal saline, morphine, vancomycin IV. Vital Signs - 24 hr Temp Pulse Resp BP Pulse Ox 12/22/17 06:52 70 20 H 96 12/22/17 05:03 97.8 F 79 16 126/85 H 94 12/21/17 22:24 98 F 98 18 135/94 H 98 12/21/17 19:05 87 18 12/21/17 15:22 70 12/21/17 14:06 97.8 F 101 H 18 143/90 H 98 General: Alert, Oriented x3, Cooperative, No apparent distress HEENT: Atraumatic, EOMI, Normocephalic Oral: Moist Mucosa Neck: Supple, No JVD Lungs: Clear to auscultation, Normal air movement, No rhonchi, No wheeze, No rales Cardiovascular: Regular rate, Regular Rhythm, Normal S1, Normal S2, No murmurs Abdomen: Soft, Non Tender, Non-Distended, No Hepato-splenomegaly Skin: - - 3 cm wound on her chin, some sloughing is present Psych/Mental Status: Normal Affect, Appropriate Hospital Course: 1. 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 She had been on abx as an outpatient, however her living conditions are deplorable and she had difficulty changing dressings and keeping the wound clean. She had silver ointment in the wound which can give the appearance of purulences, and once that was cleaned off and she was started on wet to dry dressing changes BID, her wound looked much better and she had remained afebrile without a leukocytosis. In discussion with ID, it was felt that abx were no longer warranted and they were discontinued on discharge. Per her plastic surgeon, the previous surgical margins were not clear of cancer, so she will need further debridement if we hope to heal the wound. She will need outpatient f/u with her plastic surgeon. 2. Chronic Diastolic CHF/CKD3/A-fib/HTN/HLD/NICKOLAS - She is unable to wear her CPAP because of her wound so she is able to wear nocturnal O2. Her EF is stable at 70% and she was continued on all of her home medications at discharge. Her INR on admission was 1.8 but she was continued on her home coumadin regimen and on discharge her INR was 2.3 3. Her other home medications were continued where appropriate Home Medications: Medications to take at Discharge Calcium Carbonate [Calcium] 500 mg PO BID 04/13/15 Diazepam [Valium] 10 mg PO TID 04/13/15 Metformin HCl [Glucophage] 1,000 mg PO QHS 04/13/15 Metformin HCl [Glucophage] 500 mg PO BREAKFAST 04/13/15 Omeprazole [Prilosec] 40 mg PO DAILY 04/13/15 traZODone [Desyrel] 50 mg PO QHS 04/13/15 Aspirin [Aspirin, Baby] 81 mg PO DAILY@0800 tab.chew 04/18/15 Tizanidine HCl [Zanaflex] 2 mg PO TID 05/13/15 Oxycodone HCl/Acetaminophen [Percocet 10-325 mg Tablet] 7.5 mg PO TID 07/20/16 Albuterol Inhaler [Ventolin Hfa] 2 puff INHALATION Q4H PRN PRN #1 inhaler 08/14/16 Cetirizine HCl [Zyrtec] 10 mg PO DAILY #30 cap 08/18/16 Ferrous Sulfate 325 mg PO DAILY@0800 #30 tab 08/18/16 Gabapentin [Neurontin] 600 mg PO TID 01/26/17 atorvastatin 20 mg tablet 20 mg PO QHS tab 03/09/17 lisinopril 20 mg tablet 20 mg PO QDAY 03/09/17 flecainide 150 mg tablet 150 mg PO Q12H #180 tab 04/18/17 insulin NPH isophane U- 100 human 100 unit/mL subcutaneous suspension 18 unit SC QPM 04/18/17 insulin lispro (U- 100) 100 unit/mL subcutaneous solution 24 unit SC QAM 04/18/17 amlodipine 5 mg tablet 5 mg PO QDAY #90 tab 06/27/17 Furosemide 40 mg PO TID 08/03/17 Insulin Lispro [Humalog] 10 unit SC LUNCH 08/03/17 Insulin Lispro [Humalog] 15 unit SQ DINNER 08/03/17 Insulin NPH Human [Humulin N Pen] 10 units SC DAILY@0730 08/03/17 metolazone 2.5 mg tablet 2.5 mg PO .COMPLEX #10 tab 08/05/17 potassium chloride ER 20 mEq tablet,extended release(part/cryst) 40 meq PO QDAY #60 tab 08/17/17 warfarin 10 mg tablet 10 mg PO SUMOFRSA #30 tab 10/03/17 warfarin 7.5 mg tablet 7.5 mg PO TUWETH #30 tab 10/03/17 carvedilol 6.25 mg tablet 6.25 mg PO BID #60 tab 10/20/17 Biotin 1 tab PO DAILY 11/18/17 Diphenoxylate/Atrop [Lomotil] 1 tab PO Q6H PRN PRN 11/18/17 Folic Acid 0.8 mg PO DAILY 11/18/17 Ipratropium [place] 0.06% [ATROVENT NASAL SPRAY] 2 spray NASAL BID 11/18/17 Vitamin B12 2,000 unit PO DAILY 11/18/17 Primary Care Physician: Nigel Hoang Jr., MD [Primary Care Provider] - Disposition: Long-Term facility Minutes spent on discharge:: 35 Patient Condition:: Good Medical Necessity - Tobacco Use Smoking Status: Never smoker Tobacco Use: Non-smoker Meaningful Use Info Meaningful Use Diagnoses (Choose all that apply): None applicable Code Visit Inpatient E&M: 32163 Disch Hosp
--- NOTE | 2017-12-22 10:28 | PN.ID_ITS ---
Subjective: Feeling ok, no fever, no n/v/d. - Physical Exam General: Alert, Cooperative, No apparent distress Lungs: Clear to auscultation, Normal air movement Cardiovascular: Regular rate, Regular Rhythm Abdomen: Soft, Non Tender, Non-Distended Skin: Ulcer/ Wound - chin bandaged Vital Signs Temp Pulse Resp BP Pulse Ox 97.6 F L 78 14 91/53 L 95 12/22/17 09:10 12/22/17 09:10 12/22/17 09:10 12/22/17 09:10 12/22/17 09:10 Oxygen Delivery Method Room Air Weight: 107.7 kg Body Mass Index (BMI) 42.0 Finger Stick Blood Glucose 117 Intake and Output for Last 24 Hours 12/20/17 12/21/17 12/22/17 23:59 23:59 23:59 Intake Total 1648 / 1648 818 / 818 240 / 240 Balance 1648 / 1648 818 / 818 240 / 240 Microbiology Past 72 Hours 12/18/17 20:15 Blood Culture - Preliminary Blood Culture (Wb) - Right Hand No growth in 48 hours. 12/18/17 22:15 Gram Stain - Final Skin - Face Wound Culture - Final Presumptive C albicans Laboratory Tests Past 24 Hrs 12/22/17 05:10 PT 25.0 H INR 2.3 POC Glucose 12/22/17 12/21/17 12/21/17 09:00 22:05 17:19 POC Glucose 152 H 167 H 184 H 12/21/17 11:03 POC Glucose 129 H Medical Necessity - Tobacco Use Smoking Status: Never smoker Tobacco Use: Non-smoker Route of nutrition/ use of supplements: [] Nutritional Intake: [] IV Site: [] Muro Catheter: [] - Assessment/Plan Antibiotics: [] Assessment/Plan: [] MRSA chin abscess and cellulitis - taken to OR 12/[address] Soto. Surg cx now with haemophilis, beta lactamase neg, sphingomonas, and prevotella. Bone cx neg. 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 Sent home on po doxy/keflex, but sx worsened. Now re-admitted, narrowed abx to keflex/flagyl. Wound cx here is negative so far. Some of the drainage/odor could be from dressings, but also from ongoing necrosis due to the cancer. Ok for d.c off of abx. Will follow, d/w case management social worker
[2017-12-22] MEDS: Carvedilol 6.25 MG Tablet PO ×2 (10:35→22:15)
[2017-12-22] MEDS: Flecainide 150 MG Tablet PO ×2 (10:36→22:16)
[2017-12-22] MEDS: Calcium (Elemental) 500 MG Tablet PO ×2 (10:36→22:16)
[2017-12-22] MEDS: Cyanocobalamin 500 MCG Tablet 2000 MCG PO (10:36)
[2017-12-22] MEDS: amLODIPine 5 MG Tablet PO (10:36)
[2017-12-22] MEDS: Loratadine 10 MG Tablet PO (10:36)
[2017-12-22] MEDS: Cephalexin 500 MG Capsule PO ×2 (10:36→22:15)
[2017-12-22] MEDS: Lisinopril 20 MG Tablet PO (10:36)
[2017-12-22] MEDS: Pantoprazole Sodium 40 MG Tablet PO (10:36)
[2017-12-22] MEDS: Ferrous Sulfate 325 MG Tablet PO (10:37)
[2017-12-22] MEDS: Aspirin 81 MG TAB.CHEW PO (10:37)
[2017-12-22] MEDS: Folic Acid 1 MG Tablet PO (10:37)
[2017-12-22] MEDS: Insulin Lispro 100 UNIT/ML INSULN.PEN 24 UNIT SC (10:41)
[2017-12-22] MEDS: Insulin NPH Human 100 UNITS/ML PEN 10 UNITS SC (10:44)
--- NOTE | 2017-12-22 10:45 | CASEMGMT ---
Addendum entered by Lorene Vidal 12/22/17 13:08: SW let pt know that the initial referral for SNF was agreed upon, and now TCU just needs to submit for precert, and it is anticipated pt will be able to go to TCU today. Pt states understanding. SW will continue to follow. ALESIA Brizuela, CLINICAL LAB SPECIALIST Original Note: Addendum entered by Lorene Vidal 12/22/17 12:42: SW spoke w/Kay Velez from [employer], she states she is in agreement with long term home facility level of care, this is good for four days. She states the group home who can take pt can now submit for precert. SW called Maegan in TCU, message left letting her know that she can start precert and that O did agree with SNF level of care. SW will continue to follow. ALESIA Brizuela, CLINICAL LAB SPECIALIST Original Note: Addendum entered by Lorene Vidal 12/22/17 11:14: SW spoke w/pt again regarding where her friend lives with whom she may stay. Pt's friend lives in [place]. Pt agreeable to have SW make a referral to home health in the [place] area in the event pt is not approved for SNF. SW called [facility], they do not service [place]. SW called [facility], spoke w/Talita, they do service [place] and will review referral. SW did explain to Talita that we are trying for SNF but pt may not be approved. SW faxed referral to [place] with [facility]. SW will continue to follow. ALESIA Brizuela, CLINICAL LAB SPECIALIST Original Note: Updated PT notes [place] [facility] SW spoke w/pt in the room, let her know that we are still waiting to hear from insurance in regard to whether or not pt will be authorized to go to TCU. SW asked pt what she would want to do if she is not authorized, would she want to apply for Medicaid, go home w/the current home health, or speak w/her brother about going to her house. Pt agreeable to complete Medicaid application, but states that a friend of hers who lives near [place] said pt could stay with her. Pt states if she is not approved she would more likely go to her friend's home, rather than go under Medicaid. Pt did complete the Medicaid application though just in case, and was agreeable to have SW fax the application to [facility]. SW did fax the application to [facility]. SW now waiting to hear back from Kay Velez at [facility], SW did call and let Kay Velez know via voice sathya that the updated PT notes were faxed this morning. ALESIA Brizuela, CLINICAL LAB SPECIALIST
[2017-12-22] MEDS: Insulin Lispro 100 UNIT/ML INSULN.PEN SC (10:47)
[2017-12-22 13:16] LABS: Bedside Glucose 102 mg/dL (70-110)
--- NOTE | 2017-12-22 13:19 | CASEMGMT ---
Addendum entered by Lorene Vidal 12/22/17 13:51: SW called pt's brother, let him know that it is anticipated pt will be approved to go to TCU today or tomorrow, and that we will call him once we get the final word and pt is going to TCU. Pt's brother states understanding. SW called [facility] and let Patricia know that it is anticipated pt will go to TCU. SW also called [facility], and let them know it is anticipated pt will go to TCU from here, however if pt goes to her friend's home from TCU we may be re-referring pt. SW now just waiting to hear from U regarding precert. SW will leave green sheet on chart for staff to follow if precert is attained after this SW leaves for the day. ALESIA Brizuela, RN COMMUNITY Original Note: IZABELLA called [facility], message left for Linda Marin, supervisor agency appointments in the [facility] dept at [facility] letting her know that the Medicaid application for this pt can be discarded. ALESIA Brizuela, RN COMMUNITY
[2017-12-22] MEDS: Insulin Lispro 100 UNIT/ML INSULN.PEN 10 UNIT SC (14:01)
[2017-12-22 17:15] LABS: Bedside Glucose 62 mg/dL (70-110)
--- NOTE | 2017-12-22 17:21 | PCM.PN.HOSP ---
Subjective: Doing well, awaiting pre-cert for SNF placement Objective: General: Alert, Oriented x3, Cooperative, No apparent distress HEENT: Atraumatic, EOMI, Normocephalic Oral: Moist Mucosa Neck: Supple, No JVD Lungs: Clear to auscultation, Normal air movement, No rhonchi, No wheeze, No rales Cardiovascular: Regular rate, Regular Rhythm, Normal S1, Normal S2, No murmurs Abdomen: Soft, Non Tender, Non-Distended, No Hepato-splenomegaly Skin: - - 3 cm wound on her chin, some sloughing is present Psych/Mental Status: Normal Affect, Appropriate Vitals/I&O's: Vital Signs Temp Pulse Resp BP Pulse Ox 97.3 F L 83 14 101/48 L 94 12/22/17 15:15 12/22/17 15:15 12/22/17 15:15 12/22/17 15:15 12/22/17 15:15 Oxygen Delivery Method Room Air Weight: 237 lb 7.005 oz Body Mass Index (BMI) 42.0 Finger Stick Blood Glucose 117 Intake and Output for Last 24 Hours 12/20/17 12/21/17 12/22/17 23:59 23:59 23:59 Intake Total 1648 / 1648 818 / 818 800 / 800 Balance 1648 / 1648 818 / 818 800 / 800 Microbiology Past 72 Hours 12/18/17 20:15 Blood Culture (Wb) - Right Hand Blood Culture - Preliminary No growth in 48 hours. 12/18/17 22:15 Skin - Face Gram Stain - Final 12/18/17 22:15 Skin - Face Wound Culture - Final Presumptive C albicans Laboratory Results 12/21/17 17:19: POC Glucose 184 H 12/21/17 22:05: POC Glucose 167 H 12/22/17 05:10: PT 25.0 H, INR 2.3 12/22/17 09:00: POC Glucose 152 H 12/22/17 13:12: POC Glucose 102 12/22/17 17:09: POC Glucose 62 L Current Medications Acetaminophen (Tylenol) 650 mg PO Q6H PRN PRN PRN Reason: Mild Pain (scale 0-3)/T>100.7 Al Hydroxide/Mg Hydroxide (Mylanta Ii) 30 ml PO Q6H PRN PRN PRN Reason: Gastric burning Albuterol Sulfate (Ventolin Aerosols) 2.5 mg INHALATION Q2H PRN PRN PRN Reason: dyspnea, wheezing Albuterol/Ipratropium (Duoneb) 3 ml INHALATION Q6HWA.RT [facility] Last Admin: 12/22/17 12:58 Dose: 3 ml Amlodipine Besylate (Norvasc) 5 mg PO DAILY [facility] Last Admin: 12/22/17 10:36 Dose: 5 mg Aspirin (Aspirin, Baby) 81 mg PO DAILY@0800 [facility] Last Admin: 12/22/17 10:37 Dose: 81 mg Atorvastatin Calcium (Lipitor) 20 mg PO QHS [facility] Last Admin: 12/21/17 22:07 Dose: 20 mg Calcium Carbonate (Os-Kirill 500) 500 mg PO BID [facility] Last Admin: 12/22/17 10:36 Dose: 500 mg Carvedilol (Coreg) 6.25 mg PO BID [facility] Last Admin: 12/22/17 10:35 Dose: 6.25 mg Cephalexin (Keflex) 500 mg PO Q12 [facility] Last Admin: 12/22/17 10:36 Dose: 500 mg Cyanocobalamin (Vitamin B12) 2,000 mcg PO DAILY [facility] Last Admin: 12/22/17 10:36 Dose: 2,000 mcg Dextrose (D50w Syringe) 0 gm IV X1 PRN; Protocol PRN Reason: Hypoglycemia Last Admin: 12/20/17 14:35 Dose: 25 gm Diazepam (Valium) 10 mg PO TID [facility] Last Admin: 12/22/17 13:59 Dose: 10 mg Diphenoxylate HCl/Atropine (Lomotil) 1 tablet PO Q6H PRN PRN PRN Reason: Diarrhea Ferrous Sulfate (Ferrous Sulfate) 325 mg PO DAILY@0800 [facility] Last Admin: 12/22/17 10:37 Dose: 325 mg Flecainide Acetate (Tambocor) 150 mg PO Q12 [facility] Last Admin: 12/22/17 10:36 Dose: 150 mg Folic Acid (Folic Acid) 1 mg PO DAILY@0800 [facility] Last Admin: 12/22/17 10:37 Dose: 1 mg Furosemide (Lasix) 60 mg PO TID [facility] Last Admin: 12/22/17 13:58 Dose: 60 mg Gabapentin (Neurontin) 600 mg PO TID [facility] Last Admin: 12/22/17 13:59 Dose: 600 mg Glucagon () 1 mg IM .X1 PRN PRN Reason: Hypoglycemia Sodium Chloride () 250 mls @ 15 mls/hr IV .[id number] PRN PRN Reason: SALINE FLUSH Insulin Human Lispro (Humalog Kwikpen (Bkc)) 10 unit SC LUNCH [facility] Last Admin: 12/22/17 14:01 Dose: 10 u Insulin Human Lispro (Humalog Kwikpen (Bkc)) 0 unit SC ACHS [facility]; Protocol Last Admin: 12/22/17 17:15 Dose: Not Given Insulin Human Lispro (Humalog Kwikpen (Bkc)) 15 unit SC DINNER [facility] Last Admin: 12/22/17 17:17 Dose: Not Given Insulin Human Lispro (Humalog Kwikpen (Bkc)) 24 unit SC BREAKFAST [facility] Last Admin: 12/22/17 10:41 Dose: 24 unit Insulin Human NPH (Humulin N (Bkc)) 18 units SC QPM [facility] Last Admin: 12/21/17 22:11 Dose: 18 u Insulin Human NPH (Humulin N (Bkc)) 10 units SC DAILY@0730 [facility] Last Admin: 12/22/17 10:44 Dose: 10 u Ipratropium [place] (Atrovent Nasal [place] (G)) 2 spray NASAL BID [facility] Last Admin: 12/22/17 10:52 Dose: Not Given Lisinopril (Zestril) 20 mg PO DAILY [facility] Last Admin: 12/22/17 10:36 Dose: 20 mg Loratadine (Claritin) 10 mg PO DAILY [facility] Last Admin: 12/22/17 10:36 Dose: 10 mg Magnesium Hydroxide (Milk Of Magnesia) 30 ml PO DAILY PRN PRN PRN Reason: Constipation Metronidazole (Flagyl) 500 mg PO TID [facility] Last Admin: 12/22/17 13:59 Dose: 500 mg Morphine Sulfate () 1 - 2 mg IV Q4H PRN PRN PRN Reason: Moderate Pain (pain scale 4-5) Last Admin: 12/21/17 06:40 Dose: 2 mg Morphine Sulfate () 2 - 4 mg IV Q3H PRN PRN PRN Reason: Severe Pain (pain scale 6-10) Last Admin: 12/20/17 04:02 Dose: 4 mg Nystatin (Mycostatin Powder) 1 applic TOPICAL TID [facility]; Protocol Last Admin: 12/22/17 14:00 Dose: 1 applicatio Ondansetron HCl (Zofran) 4 mg IV Q8H PRN PRN PRN Reason: NAUSEA Oxycodone HCl (Oxyir) 10 mg PO Q4H PRN PRN PRN Reason: Moderate Pain (pain scale 4-5) Last Admin: 12/22/17 10:38 Dose: 10 mg Pantoprazole Sodium (Protonix) 40 mg PO DAILY [facility] Last Admin: 12/22/17 10:36 Dose: 40 mg Potassium Chloride (K-Dur) 40 meq PO DAILY [facility] Last Admin: 12/22/17 10:37 Dose: 40 meq Promethazine HCl (Phenergan) 12.5 mg IV Q6H PRN PRN PRN Reason: NAUSEA/VOMITING Sodium Chloride () 5 - 30 ml IV UD PRN PRN Reason: SALINE FLUSH Last Admin: 12/21/17 14:07 Dose: 10 ml Tizanidine HCl (Zanaflex) 2 mg PO TID [facility] Last Admin: 12/22/17 13:59 Dose: 2 mg Trazodone HCl (Desyrel) 50 mg PO QHS [facility] Last Admin: 12/21/17 22:06 Dose: 50 mg Warfarin Sodium (Coumadin (Pbkc)) 7.5 mg PO TuWeTh@1700 [facility]; Protocol Last Admin: 12/21/17 17:58 Dose: 7.5 mg Warfarin Sodium (Coumadin (Pbkc)) 10 mg PO SuMoFrSa@1700 [facility] Last Admin: 12/19/17 16:51 Dose: 10 mg Medical Necessity - Tobacco Use Smoking Status: Never smoker Tobacco Use: Non-smoker Assessment/Plan All Active Problems (Last Reviewed 12/04/17 @ 01:53 by Sanjay Rhodes MD) Osteomyelitis of mandible (Acute) Abscess of chin (Acute) Methicillin resistant Staphylococcus aureus infection (Acute) Facial cellulitis (Acute) History of facial surgery (Resolved) History of tonsillectomy (Resolved) History of bilateral knee replacement (Resolved) History of cataract extraction (Resolved) History of syncope (Acute) Syncope (Acute) Acute asthmatic bronchitis (Resolved) Acute exacerbation of CHF (congestive heart failure) (Resolved) Atrial fibrillation with RVR (Resolved) Paroxysmal A-fib (Resolved) SOB (shortness of breath) (Resolved) 1. Facial abscess vs squamous cell carcinoma - She was recently admitted for this issue and was treated with an appropriate course of abx - There was some drainage from packing - c/s to surgery and ID, appreciate recs - C/w BID wet to dry, attempt SNF placement, otherwise home with home health - DC abx on DC - Oxycodone and IV morphine for pain - DC in am to home or SNF 2. Chronic diastolic CHF/CKD3/A-fib/HTN/HLD/NICKOLAS - LV EF is 70% - c/w statin, norvasc, lisinopril, lasix, metolazone, coreg and coumadin - INR today 2.3, c/w felcainide for the afib - Cr is at baseline currently, will continue to monitor - given the wound, CPAP is not feasable, can use nocturnal O2 if necessary 3. Chronic COPD - stable - c/w home inhalers 4. DM2 - Hold home oral medications, c/w home insulin - c/w SSI, BG 157 this morning 5. GERD - stable - c/w PPI 6. Anxiety/Depression - stable - c/w home diazepam and trazodone 7. Iron deficiency anemia - H/H is stable - c/w home iron DVT: SCDs and Coumadin Diet: Calorie controlled Code Visit Inpatient E&M: 61399 Subs Hosp L2
--- NOTE | 2017-12-22 17:24 | PN_ITS ---
Subjective: Doing well, awaiting pre-cert for SNF placement Objective: General: Alert, Oriented x3, Cooperative, No apparent distress HEENT: Atraumatic, EOMI, Normocephalic Oral: Moist Mucosa Neck: Supple, No JVD Lungs: Clear to auscultation, Normal air movement, No rhonchi, No wheeze, No rales Cardiovascular: Regular rate, Regular Rhythm, Normal S1, Normal S2, No murmurs Abdomen: Soft, Non Tender, Non-Distended, No Hepato-splenomegaly Skin: - - 3 cm wound on her chin, some sloughing is present Psych/Mental Status: Normal Affect, Appropriate Vitals/I&O's: Vital Signs Temp Pulse Resp BP Pulse Ox 97.3 F L 83 14 101/48 L 94 12/22/17 15:15 12/22/17 15:15 12/22/17 15:15 12/22/17 15:15 12/22/17 15:15 Oxygen Delivery Method Room Air Weight: 237 lb 7.005 oz Body Mass Index (BMI) 42.0 Finger Stick Blood Glucose 117 Intake and Output for Last 24 Hours 12/20/17 12/21/17 12/22/17 23:59 23:59 23:59 Intake Total 1648 / 1648 818 / 818 800 / 800 Balance 1648 / 1648 818 / 818 800 / 800 Microbiology Past 72 Hours 12/18/17 20:15 Blood Culture (Wb) - Right Hand Blood Culture - Preliminary No growth in 48 hours. 12/18/17 22:15 Skin - Face Gram Stain - Final 12/18/17 22:15 Skin - Face Wound Culture - Final Presumptive C albicans Laboratory Results 12/21/17 17:19: POC Glucose 184 H 12/21/17 22:05: POC Glucose 167 H 12/22/17 05:10: PT 25.0 H, INR 2.3 12/22/17 09:00: POC Glucose 152 H 12/22/17 13:12: POC Glucose 102 12/22/17 17:09: POC Glucose 62 L Current Medications Acetaminophen (Tylenol) 650 mg PO Q6H PRN PRN PRN Reason: Mild Pain (scale 0-3)/T>100.7 Al Hydroxide/Mg Hydroxide (Mylanta Ii) 30 ml PO Q6H PRN PRN PRN Reason: Gastric burning Albuterol Sulfate (Ventolin Aerosols) 2.5 mg INHALATION Q2H PRN PRN PRN Reason: dyspnea, wheezing Albuterol/Ipratropium (Duoneb) 3 ml INHALATION Q6HWA.RT [facility] Last Admin: 12/22/17 12:58 Dose: 3 ml Amlodipine Besylate (Norvasc) 5 mg PO DAILY [facility] Last Admin: 12/22/17 10:36 Dose: 5 mg Aspirin (Aspirin, Baby) 81 mg PO DAILY@0800 [facility] Last Admin: 12/22/17 10:37 Dose: 81 mg Atorvastatin Calcium (Lipitor) 20 mg PO QHS [facility] Last Admin: 12/21/17 22:07 Dose: 20 mg Calcium Carbonate (Os-Kirill 500) 500 mg PO BID [facility] Last Admin: 12/22/17 10:36 Dose: 500 mg Carvedilol (Coreg) 6.25 mg PO BID [facility] Last Admin: 12/22/17 10:35 Dose: 6.25 mg Cephalexin (Keflex) 500 mg PO Q12 [facility] Last Admin: 12/22/17 10:36 Dose: 500 mg Cyanocobalamin (Vitamin B12) 2,000 mcg PO DAILY [facility] Last Admin: 12/22/17 10:36 Dose: 2,000 mcg Dextrose (D50w Syringe) 0 gm IV X1 PRN; Protocol PRN Reason: Hypoglycemia Last Admin: 12/20/17 14:35 Dose: 25 gm Diazepam (Valium) 10 mg PO TID [facility] Last Admin: 12/22/17 13:59 Dose: 10 mg Diphenoxylate HCl/Atropine (Lomotil) 1 tablet PO Q6H PRN PRN PRN Reason: Diarrhea Ferrous Sulfate (Ferrous Sulfate) 325 mg PO DAILY@0800 [facility] Last Admin: 12/22/17 10:37 Dose: 325 mg Flecainide Acetate (Tambocor) 150 mg PO Q12 [facility] Last Admin: 12/22/17 10:36 Dose: 150 mg Folic Acid (Folic Acid) 1 mg PO DAILY@0800 [facility] Last Admin: 12/22/17 10:37 Dose: 1 mg Furosemide (Lasix) 60 mg PO TID [facility] Last Admin: 12/22/17 13:58 Dose: 60 mg Gabapentin (Neurontin) 600 mg PO TID [facility] Last Admin: 12/22/17 13:59 Dose: 600 mg Glucagon () 1 mg IM .X1 PRN PRN Reason: Hypoglycemia Sodium Chloride () 250 mls @ 15 mls/hr IV .[id number] PRN PRN Reason: SALINE FLUSH Insulin Human Lispro (Humalog Kwikpen (Bkc)) 10 unit SC LUNCH [facility] Last Admin: 12/22/17 14:01 Dose: 10 u Insulin Human Lispro (Humalog Kwikpen (Bkc)) 0 unit SC ACHS [facility]; Protocol Last Admin: 12/22/17 17:15 Dose: Not Given Insulin Human Lispro (Humalog Kwikpen (Bkc)) 15 unit SC DINNER [facility] Last Admin: 12/22/17 17:17 Dose: Not Given Insulin Human Lispro (Humalog Kwikpen (Bkc)) 24 unit SC BREAKFAST [facility] Last Admin: 12/22/17 10:41 Dose: 24 unit Insulin Human NPH (Humulin N (Bkc)) 18 units SC QPM [facility] Last Admin: 12/21/17 22:11 Dose: 18 u Insulin Human NPH (Humulin N (Bkc)) 10 units SC DAILY@0730 [facility] Last Admin: 12/22/17 10:44 Dose: 10 u Ipratropium [place] (Atrovent Nasal [place] (G)) 2 spray NASAL BID [facility] Last Admin: 12/22/17 10:52 Dose: Not Given Lisinopril (Zestril) 20 mg PO DAILY [facility] Last Admin: 12/22/17 10:36 Dose: 20 mg Loratadine (Claritin) 10 mg PO DAILY [facility] Last Admin: 12/22/17 10:36 Dose: 10 mg Magnesium Hydroxide (Milk Of Magnesia) 30 ml PO DAILY PRN PRN PRN Reason: Constipation Metronidazole (Flagyl) 500 mg PO TID [facility] Last Admin: 12/22/17 13:59 Dose: 500 mg Morphine Sulfate () 1 - 2 mg IV Q4H PRN PRN PRN Reason: Moderate Pain (pain scale 4-5) Last Admin: 12/21/17 06:40 Dose: 2 mg Morphine Sulfate () 2 - 4 mg IV Q3H PRN PRN PRN Reason: Severe Pain (pain scale 6-10) Last Admin: 12/20/17 04:02 Dose: 4 mg Nystatin (Mycostatin Powder) 1 applic TOPICAL TID [facility]; Protocol Last Admin: 12/22/17 14:00 Dose: 1 applicatio Ondansetron HCl (Zofran) 4 mg IV Q8H PRN PRN PRN Reason: NAUSEA Oxycodone HCl (Oxyir) 10 mg PO Q4H PRN PRN PRN Reason: Moderate Pain (pain scale 4-5) Last Admin: 12/22/17 10:38 Dose: 10 mg Pantoprazole Sodium (Protonix) 40 mg PO DAILY [facility] Last Admin: 12/22/17 10:36 Dose: 40 mg Potassium Chloride (K-Dur) 40 meq PO DAILY [facility] Last Admin: 12/22/17 10:37 Dose: 40 meq Promethazine HCl (Phenergan) 12.5 mg IV Q6H PRN PRN PRN Reason: NAUSEA/VOMITING Sodium Chloride () 5 - 30 ml IV UD PRN PRN Reason: SALINE FLUSH Last Admin: 12/21/17 14:07 Dose: 10 ml Tizanidine HCl (Zanaflex) 2 mg PO TID [facility] Last Admin: 12/22/17 13:59 Dose: 2 mg Trazodone HCl (Desyrel) 50 mg PO QHS [facility] Last Admin: 12/21/17 22:06 Dose: 50 mg Warfarin Sodium (Coumadin (Pbkc)) 7.5 mg PO TuWeTh@1700 [facility]; Protocol Last Admin: 12/21/17 17:58 Dose: 7.5 mg Warfarin Sodium (Coumadin (Pbkc)) 10 mg PO SuMoFrSa@1700 [facility] Last Admin: 12/19/17 16:51 Dose: 10 mg Medical Necessity - Tobacco Use Smoking Status: Never smoker Tobacco Use: Non-smoker Assessment/Plan All Active Problems (Last Reviewed 12/04/17 @ 01:53 by Sanjay Rhodes MD) Osteomyelitis of mandible (Acute) Abscess of chin (Acute) Methicillin resistant Staphylococcus aureus infection (Acute) Facial cellulitis (Acute) History of facial surgery (Resolved) History of tonsillectomy (Resolved) History of bilateral knee replacement (Resolved) History of cataract extraction (Resolved) History of syncope (Acute) Syncope (Acute) Acute asthmatic bronchitis (Resolved) Acute exacerbation of CHF (congestive heart failure) (Resolved) Atrial fibrillation with RVR (Resolved) Paroxysmal A-fib (Resolved) SOB (shortness of breath) (Resolved) 1. Facial abscess vs squamous cell carcinoma - She was recently admitted for this issue and was treated with an appropriate course of abx - There was some drainage from packing - c/s to surgery and ID, appreciate recs - C/w BID wet to dry, attempt SNF placement, otherwise home with home health - DC abx on DC - Oxycodone and IV morphine for pain - DC in am to home or SNF 2. Chronic diastolic CHF/CKD3/A-fib/HTN/HLD/NICKOLAS - LV EF is 70% - c/w statin, norvasc, lisinopril, lasix, metolazone, coreg and coumadin - INR today 2.3, c/w felcainide for the afib - Cr is at baseline currently, will continue to monitor - given the wound, CPAP is not feasable, can use nocturnal O2 if necessary 3. Chronic COPD - stable - c/w home inhalers 4. DM2 - Hold home oral medications, c/w home insulin - c/w SSI, BG 157 this morning 5. GERD - stable - c/w PPI 6. Anxiety/Depression - stable - c/w home diazepam and trazodone 7. Iron deficiency anemia - H/H is stable - c/w home iron DVT: SCDs and Coumadin Diet: Calorie controlled Code Visit Inpatient E&M: 47937 Subs Hosp L2
[2017-12-22] MEDS: Magnesium Hydroxide 30 ML UDC PO (17:25)
[2017-12-22 17:40] LABS: Bedside Glucose 99 mg/dL (70-110)
[2017-12-22] MEDS: Insulin NPH Human 100 UNITS/ML PEN 18 UNITS SC (22:14)
[2017-12-22] MEDS: Ipratropium Bromide 0.06% NASAL SPRAY 2 SPRAY NASAL (22:14)
[2017-12-22] MEDS: traZODone 50 MG Tablet PO (22:15)
[2017-12-22] MEDS: Atorvastatin Calcium 20 MG Tablet PO (22:15)
[2017-12-22 22:31] LABS: Bedside Glucose 125 mg/dL (70-110)
[2017-12-23 04:08] VITALS: BP 142/68; PULSE 70; RESP 18; TEMP 36.5; O2SAT 96
[2017-12-23] MEDS: metroNIDAZOLE 500 MG Tablet PO (06:10)
[2017-12-23] MEDS: diazePAM 5 MG Tablet 10 MG PO (06:10)
[2017-12-23] MEDS: tiZANidine HCl 2 MG Tablet PO (06:10)
[2017-12-23] MEDS: Furosemide 40 MG Tablet 60 MG PO (06:10)
[2017-12-23] MEDS: Gabapentin 600 MG Tablet PO (06:10)
[2017-12-23] MEDS: Nystatin Powder 15gm Bottle 1 APPLIC TOPICAL (06:11)
[2017-12-23 07:18] LABS: International Normalized Ratio 2.5; Prothrombin Time (Protime)PT. 27.5 SECONDS (11.7-14.9)
--- NOTE | 2017-12-23 09:37 | CASEMGMT ---
IZABELLA spoke w/Maegan from [facility], pt is approved to go to TCU today. SW let hemodialysis charge nurse know, pt know, texted physician to let him know. IZABELLA also called pt's brother Brijesh Abel([phone]--cell #), let him know pt was approved and is going to [facility]CU today. Pt's brother asked how long will pt be approved for, SW explained that it is up to the insurance. Brother states understanding. No further needs, pt to TCU today. ALESIA Brizuela, CRITICAL CARE NURSE SPECIALIST
[2017-12-23] MEDS: Insulin Lispro 100 UNIT/ML INSULN.PEN 24 UNIT SC (10:25)
[2017-12-23] MEDS: Cephalexin 500 MG Capsule PO (10:26)
[2017-12-23] MEDS: Insulin NPH Human 100 UNITS/ML PEN 10 UNITS SC (10:26)
[2017-12-23] MEDS: Folic Acid 1 MG Tablet PO (10:26)
[2017-12-23] MEDS: Carvedilol 6.25 MG Tablet PO (10:26)
[2017-12-23] MEDS: Loratadine 10 MG Tablet PO (10:26)
[2017-12-23] MEDS: Pantoprazole Sodium 40 MG Tablet PO (10:26)
[2017-12-23] MEDS: Calcium (Elemental) 500 MG Tablet PO (10:26)
[2017-12-23] MEDS: amLODIPine 5 MG Tablet PO (10:26)
[2017-12-23] MEDS: Cyanocobalamin 500 MCG Tablet 2000 MCG PO (10:27)
[2017-12-23] MEDS: Aspirin 81 MG TAB.CHEW PO (10:27)
[2017-12-23] MEDS: Ferrous Sulfate 325 MG Tablet PO (10:27)
[2017-12-23] MEDS: Flecainide 150 MG Tablet PO (10:27)
[2017-12-23] MEDS: Lisinopril 20 MG Tablet PO (10:27)
[2017-12-23] MEDS: Ipratropium Bromide 0.06% NASAL SPRAY 2 SPRAY NASAL (10:33)
[2017-12-23 10:34] VITALS: BP 98/54; PULSE 72; RESP 18; TEMP 36.8; O2SAT 97
[2017-12-23 10:46] LABS: Bedside Glucose 116 mg/dL (70-110)
--- NOTE | 2017-12-23 12:38 | PCM.PN.ID ---
Subjective: No events overnight, no fever - Physical Exam General: Cooperative, No apparent distress Lungs: Clear to auscultation, Normal air movement Cardiovascular: Regular rate, Regular Rhythm Abdomen: Soft, Non Tender, Non-Distended Skin: Ulcer/ Wound - chin Vital Signs Temp Pulse Resp BP Pulse Ox 98.3 F 72 18 98/54 L 97 12/23/17 10:34 12/23/17 10:34 12/23/17 10:34 12/23/17 10:34 12/23/17 10:34 Oxygen Delivery Method Room Air Weight: 107.7 kg Body Mass Index (BMI) 42.0 Finger Stick Blood Glucose 117 Intake and Output for Last 24 Hours 12/21/17 12/22/17 12/23/17 23:59 23:59 23:59 Intake Total 818 / 818 1160 / 1160 440 / 440 Balance 818 / 818 1160 / 1160 440 / 440 Microbiology Past 72 Hours 12/18/17 20:15 Blood Culture - Preliminary Blood Culture (Wb) - Right Hand No growth in 48 hours. 12/18/17 22:15 Gram Stain - Final Skin - Face Wound Culture - Final Presumptive C albicans Laboratory Tests Past 24 Hrs 12/23/17 06:40 PT 27.5 H INR 2.5 POC Glucose 12/23/17 12/22/17 12/22/17 10:22 22:13 17:35 POC Glucose 116 H 125 H 99 12/22/17 12/22/17 17:09 13:12 POC Glucose 62 L 102 Medical Necessity - Tobacco Use Smoking Status: Never smoker Tobacco Use: Non-smoker Route of nutrition/ use of supplements: [] Nutritional Intake: [] IV Site: [] Muro Catheter: [] - Assessment/Plan Antibiotics: [] Assessment/Plan: [] MRSA chin abscess and cellulitis - taken to OR 12/[address] Soto. Surg cx now with haemophilis, beta lactamase neg, sphingomonas, and prevotella. Bone cx neg. 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 Sent home on po doxy/keflex, but sx worsened. Now re-admitted, narrowed abx to keflex/flagyl. Wound cx here is negative so far except for rare yeast. Some of the drainage/odor could be from dressings, but also from ongoing necrosis due to the cancer. Ok for d.c off of abx, will stop now. Will follow
== END 2017-12-23 13:48 | disposition skilled nursing facility (03) | DRG 603 ==
LOC: ED 22:44 → MS2 22:47
PROVIDERS: Admitting Provider Family Medicine; Emergency Provider Emergency Medicine; Family Provider Internal Medicine; PCP Internal Medicine; Visit Provider Family Medicine
DX: L02.01 Cutaneous abscess of face (principal); I50.32 Chronic diastolic (congestive) heart failure; Z68.41 Body mass index [BMI] 40.0-44.9, adult; I13.0 Hypertensive heart and chronic kidney disease with heart failure and stage 1 through stage 4 chronic kidney disease, or unspecified chronic kidney disease; J44.9 Chronic obstructive pulmonary disease, unspecified; Z23 Encounter for immunization; E66.01 Morbid (severe) obesity due to excess calories; E11.22 Type 2 diabetes mellitus with diabetic chronic kidney disease; N18.3 Chronic kidney disease, stage 3 (moderate); E11.40 Type 2 diabetes mellitus with diabetic neuropathy, unspecified; C44.329 Squamous cell carcinoma of skin of other parts of face; Z79.4 Long term (current) use of insulin; E78.5 Hyperlipidemia, unspecified; G47.33 Obstructive sleep apnea (adult) (pediatric); D50.9 Iron deficiency anemia, unspecified; I48.91 Unspecified atrial fibrillation; Z79.01 Long term (current) use of anticoagulants
CPT/HCPCS: 36415; 80048; 80202; 82962; 83735; 85025; 85610; 85652; 86140; 87040; 87070; 87205; 94640; 97116; 97162; 97165; 97530; 97535; 97802; 99282; J7030; J7040; J7050; 90686; A4216; J0696

== ENCOUNTER 2017-12-23 13:53 | Inpatient (IN) | payer MEDICARE, SELFPAY ==
[2017-12-23 15:00] VITALS: BP 170/98; PULSE 85; PULSE 87; RESP 22; TEMP 36.3; O2SAT 97; BMI 42.0; BMI 42.1
--- NOTE | 2017-12-23 15:00 | NURSING ---
patient admitted to room 13 from [facility] via bed. Oriented to room and call light system explained.
--- NOTE | 2017-12-23 15:08 | PCM.HP.STD ---
Problem List (1) Wound abscess Status: Acute (2) Squamous cell carcinoma, face Status: Acute (3) Edema Status: Chronic (4) Atrial fibrillation Status: Chronic (5) Sleep apnea Status: Chronic (6) GERD (gastroesophageal reflux disease) Status: Chronic (7) Insomnia Status: Chronic (8) Neuropathic pain Status: Chronic (9) Osteomyelitis of mandible Status: Acute (10) Facial cellulitis Status: Acute (11) Asthma Status: Chronic Qualifiers: (12) Obesity Status: Chronic (13) Chronic diastolic heart failure Status: Chronic (14) HTN (hypertension) Status: Chronic Qualifiers: (15) HLD (hyperlipidemia) Status: Chronic Qualifiers: (16) Diabetes mellitus Status: Chronic Qualifiers: (17) COPD (chronic obstructive pulmonary disease) Status: Chronic Qualifiers: (18) Basal cell carcinoma of face Status: Chronic Comment: Left face-has had 2 surgeries so far the first in February of 2015 History of Present Illness Date of Admission: 12/23/17 Chief Complaint: Here for rehabilitation, strengthening, prior to discharge home alone. The patient is a 67 year old Female with below past medical history presented to [facility] Emergency Department 12/18/2017 with chin wound. Chin wound, abscess. Concern with osteomyelitis, Dr. Soto incised and drained 12/06/2017. Dr. Henderson consulted, patient on Keflex, Doxycycline. Increase facial swelling, drainage, increased pain. History of squamous cell cancer of lip. Open wound chin down to mandible. Foul brown drainage. WBC 9.1, Hemoglobin 11.2, Hematocrit 34.5. BMP okay. ESR 44, CRP 6.39. Wound, blood cultures sent. Vancomycin IV given. 12/18/2017 Admit to Hospital. Vancomycin, Ceftriaxone IV for chin infection. 12/19/2017 Dr. Henderson recommended Vancomycin, Ceftriaxone, Metronidazole for coverage. Consult oncology for squamous cell cancer of face. 12/19/2017 Dr. Soto recommended further excision of squamous cell cancer after infection cleared. Wound infection improved, antibiotics stopped. Need outpatient surgery to clear squamous cell cancer of face. 12/23/2017 Admit to TCU with debility, here for rehabilitation, strengthening, prior to discharge home alone, consider moth exterminator care placement. Past Medical History Past Medical History (Chronic Problems): Chronic Problems (Last Reviewed 12/04/17 @ 01:53 by Sanjay Rhodes MD) Edema (Chronic) Atrial fibrillation (Chronic) Sleep apnea (Chronic) GERD (gastroesophageal reflux disease) (Chronic) Insomnia (Chronic) Neuropathic pain (Chronic) Personal history of malignant neoplasm of other sites of lip, oral cavity, and pharynx (Chronic) Personal history of skin cancer (Chronic) Asthma (Chronic) Obesity (Chronic) Atrial enlargement, left (Chronic) BMI 40.0-44.9, adult (Chronic) Chronic diastolic (congestive) heart failure (Chronic) Diastolic dysfunction (Chronic) Sinus bradycardia (Chronic) Fatigue (Chronic) Long-term use of high-risk medication (Chronic) Bilateral lower extremity edema (Chronic) History of cardioversion (Chronic ~10/01/16) H/O right and left heart catheterization (Chronic ~05/15/15) H/O basal cell carcinoma excision (Chronic) Recurrent basal cell carcinoma following excision (Chronic) Persistent atrial fibrillation (Chronic) Chronic diastolic heart failure (Chronic) long term (current) use of anticoagulants (Chronic) HTN (hypertension) (Chronic) HLD (hyperlipidemia) (Chronic) Diabetes mellitus (Chronic) COPD (chronic obstructive pulmonary disease) (Chronic) NICKOLAS (obstructive sleep apnea) (Chronic) Morbid obesity (Chronic) Basal cell carcinoma of face (Chronic) Left face-has had 2 surgeries so far the first in February of 2015 Medical History: Medical History (Last Reviewed 12/04/17 @ 01:53 by Sanjay Rhodes MD) Asthma (Chronic) J45.909 Obesity (Chronic) E66.9 Atrial enlargement, left (Chronic) I51.7 BMI 40.0-44.9, adult (Chronic) Z68.41 History of syncope (Acute) Z87.898 Chronic diastolic (congestive) heart failure (Chronic) I50.32 Diastolic dysfunction (Chronic) I51.9 Sinus bradycardia (Chronic) R00.1 Fatigue (Chronic) R53.83 Long-term use of high-risk medication (Chronic) Z79.899 Syncope (Acute) R55 Bilateral lower extremity edema (Chronic) R60.0 Recurrent basal cell carcinoma following excision (Chronic) C44.91 Persistent atrial fibrillation (Chronic) I48.1 Chronic diastolic heart failure (Chronic) I50.32 long term (current) use of anticoagulants (Chronic) Z79.01 HTN (hypertension) (Chronic) I10 HLD (hyperlipidemia) (Chronic) E78.5 Diabetes mellitus (Chronic) E11.9 COPD (chronic obstructive pulmonary disease) (Chronic) J44.9 NICKOLAS (obstructive sleep apnea) (Chronic) G47.33 Morbid obesity (Chronic) E66.01 Basal cell carcinoma of face (Chronic) C44.310 Left face-has had 2 surgeries so far the first in February of 2015 Allergies ampicillin Allergy (Severe, Verified 12/18/17 19:41) Anaphylaxis hydrocodone bitartrate [From Vicodin] Allergy (Severe, Verified 12/18/17 19:41) Itching Penicillins Allergy (Severe, Verified 12/18/17 19:41) Anaphylaxis clarithromycin [From Biaxin] Allergy (Verified 12/18/17 19:41) Rash Red and itchy venom-honey bee [bee venom (honey bee)] Allergy (Verified 12/18/17 19:41) Nausea/Vom/Diarrhea Home Medications: Ambulatory Orders Medication Instructions Recorded Calcium Carbonate [Calcium] 500 mg PO BID 04/13/15 Diazepam [Valium] 10 mg PO TID 04/13/15 Metformin HCl [Glucophage] 1,000 mg PO QHS 04/13/15 Metformin HCl [Glucophage] 500 mg PO BREAKFAST 04/13/15 Omeprazole [Prilosec] 40 mg PO DAILY 04/13/15 traZODone [Desyrel] 50 mg PO QHS 04/13/15 Tizanidine HCl [Zanaflex] 2 mg PO TID 05/13/15 Oxycodone HCl/Acetaminophen 7.5 mg PO TID 07/20/16 [Percocet 10-325 mg Tablet] Albuterol Inhaler [Ventolin Hfa] 2 puff INHALATION Q4H PRN PRN #1 08/14/16 inhaler Gabapentin [Neurontin] 600 mg PO TID 01/26/17 atorvastatin 20 mg tablet 20 mg PO QHS tab 03/09/17 lisinopril 20 mg tablet 20 mg PO QDAY 03/09/17 insulin NPH isophane U- 100 human 18 unit SC QPM 04/18/17 100 unit/mL subcutaneous suspension insulin lispro (U- 100) 100 24 unit SC QAM 04/18/17 unit/mL subcutaneous solution Furosemide 40 mg PO TID 08/03/17 Insulin Lispro [Humalog] 10 unit SC LUNCH 08/03/17 Insulin Lispro [Humalog] 15 unit SQ DINNER 08/03/17 Insulin NPH Human [Humulin N Pen] 10 units SC DAILY@0730 08/03/17 warfarin 10 mg tablet 10 mg PO SUMOFRSA #30 tab 10/03/17 Biotin 1 tab PO DAILY 11/18/17 Diphenoxylate/Atrop [Lomotil] 1 tab PO Q6H PRN PRN 11/18/17 Folic Acid 0.8 mg PO DAILY 11/18/17 Ipratropium Iroquois 0.06% 2 spray NASAL BID 11/18/17 [ATROVENT NASAL SPRAY] Vitamin B12 2,000 unit PO DAILY 11/18/17 Amlodipine Besylate [Norvasc] 5 mg PO QDAY 12/23/17 Aspirin [Aspirin, Baby] 81 mg PO DAILY@0800 12/23/17 Carvedilol [Coreg (Beta Randall)] 6.25 mg PO BID 12/23/17 Cetirizine HCl [Zyrtec] 10 mg PO DAILY 12/23/17 Ferrous Sulfate 325 mg PO DAILY@0800 12/23/17 Flecainide Acetate 150 mg PO Q12H 12/23/17 Metolazone [Zaroxolyn] 2.5 mg PO .COMPLEX 12/23/17 Potassium Chloride [K-Dur] 40 meq PO QDAY 12/23/17 Warfarin [Coumadin] 7.5 mg PO TUWE12/23/17 Surgical History: Surgical History (Last Reviewed 12/04/17 @ 01:53 by Sanjay Rhodes MD) History of facial surgery (Resolved) Z98.890 History of tonsillectomy (Resolved) Z98.890, Z90.89 History of bilateral knee replacement (Resolved) Z98.890, Z96.653 History of cataract extraction (Resolved) Z98.49 History of cardioversion (Chronic) Onset Date: ~10/01/16 Z98.890 H/O right and left heart catheterization (Chronic) Onset Date: ~05/15/15 Z98.890 H/O basal cell carcinoma excision (Chronic) Z98.890, Z85.828 Surgical History: total knee arthroplasty - Bilateral, tonsillectomy, - - Surgeries to the left face for basal cell carcinoma involving the left lower eyelid and then plastic repair, recent 11/2017 surgical interventions w/ I+D MRSA abscess, partial ostectomy anterior mandible. 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 Lives: Alone Smoking Status: Never smoker Tobacco Use: Non-smoker Alcohol: None Drugs: None - *Family History Paternal Family History: Family History (Last Reviewed 10/25/17 @ 09:00 by Selina Richards) Mother Hypertension Diabetes Father Heart disease Hypertension Diabetes Sister Hypertension Brother Diabetes History Items: Cancer, Diabetes, Hypertension Maternal Family History: Family History (Last Reviewed 10/25/17 @ 09:00 by Selina Richards) Mother Hypertension Diabetes Father Heart disease Hypertension Diabetes Sister Hypertension Brother Diabetes History Items: Heart Disease, Hypertension Sibling Family History: Family History (Last Reviewed 10/25/17 @ 09:00 by Selina Richards) Mother Hypertension Diabetes Father Heart disease Hypertension Diabetes Sister Hypertension Brother Diabetes History Items: Heart Disease Review of Systems Constitutional: Denies: Chills, Fever, Weight Change HEENT: Denies: Head Aches, Sinus Congestion, Sinus Drainage Cardiovascular: Denies: Chest Pain, Palpitations Respiratory: Denies: Cough, Shortness of breath at rest, Sputum production Gastrointestinal: Denies: Abdominal Pain, Nausea, Vomiting Genitourinary: Denies: Dysuria Musculoskeletal: Denies: Joint Pain, Joint Tenderness Skin: Denies: Rash, Wounds Neurological: Denies: Numbness, Tingling, Focal weakness Psychiatric: Denies: Anxiety, Depression, Homicidal Ideations, Suicidal Ideations Hematologic/ Lymphatic: Denies: Easy Bruising, Easy Bleeding VTE Information - Inpt Only VTE Present on Admission: No VTE Mechan Device Prophylaxis: Knee High MARYCHUY Hose VTE Pharm Prophylaxis ordered?: No Reason prophylaxis not ordered:: Treatment Not Indicated Patient Problems: Active and Suspected Problems (Last Reviewed 12/04/17 @ 01:53 by Sanjay Rhodes MD) Wound abscess (Acute) Squamous cell carcinoma, face (Acute) - Physical Exam General: Alert, Oriented x3, Cooperative HEENT: Atraumatic, PERRLA, EOMI, Normocephalic Oral: - - Chin wound dressed. Neck: Supple, No JVD, Negative Carotid Bruits Lungs: Clear to auscultation, Normal air movement Cardiovascular: Regular rate, No murmurs Abdomen: Bowel Sounds Present, Soft, Non Tender Extremities: No edema, Capillary Refill Less than 3 Seconds Skin: No rashes, No breakdown Musculoskeletal: No Tenderness to Palpation of Joints or Extremities Neurological: Cranial nerves II-XII grossly intact Psych/Mental Status: Normal Affect, Appropriate Finger Stick Blood Glucose 117 Assessment/Plan All Active Problems (Last Reviewed 12/04/17 @ 01:53 by Sanjay Rhodes MD) Wound abscess (Acute) Squamous cell carcinoma, face (Acute) Osteomyelitis of mandible (Acute) Abscess of chin (Acute) Methicillin resistant Staphylococcus aureus infection (Acute) Facial cellulitis (Acute) History of facial surgery (Resolved) History of tonsillectomy (Resolved) History of bilateral knee replacement (Resolved) History of cataract extraction (Resolved) History of syncope (Acute) Syncope (Acute) Acute asthmatic bronchitis (Resolved) Acute exacerbation of CHF (congestive heart failure) (Resolved) Atrial fibrillation with RVR (Resolved) Paroxysmal A-fib (Resolved) SOB (shortness of breath) (Resolved) 67 year old female with below past medical history significant for squamous cell cancer of face, hospitalized for chin wound infection, treated with intravenous antibiotics, need outpatient surgery to excise squamous cell cancer, admitted to TCU with debility, here for rehabilitation, strengthening, prior to discharge home alone, consider moth exterminator care placement. Debility - PT/OT. Pain - Tylenol 1000MG Q8H PRN mild pain, Oxycodone 7.5MG TID. Bowel - Miralax 17GM daily, Senna/colace 2 tablets BID, Dulcolax 10MG PO daily PRN. Pneumonia vaccination - Administer Prevnar 13 and/or Pneumovax 23 as necessary. DVT prophylaxis - Not necessary, already on warfarin. Shortness of breath - Albuterol 2 puffs Q4H PRN. Hypertension - Coreg 6.25MG BID, Lisinopril 20MG daily, Amlodipine 5MG daily. Chronic diastolic heart failure - Coreg 6.25MG BID, Lisinopril 20MG daily, Lasix 60MG TID. Coronary artery disease - Coreg 6.25MG BID, Lisinopril 20MG daily, Aspirin 81MG daily. Hyperlipidemia - Atorvastatin 20MG QHS. Calcium deficiency - Calcium 500MG BID. Anxiety - Diazepam 10MG TID. Iron deficiency anemia - Ferrex 150MG daily. Atrial Fibrillation - Coreg 6.25MG BID, Flecainide 150MG Q12H, Warfarin 7.5/10MG alternating, follow INR. Folate deficiency - Folic acid 1MG daily. Neuropathic pain - Gabapentin 600MG TID. Diabetes Mellitus II - Metformin 500MG AM, 1000MG PM, Insulin N 10 units AM, 18 units PM, Humalog 24 units AM, 10 units Lunch, 15 units PM. Allergic rhinitis - Loratadine 10MG daily, Atrovent 2 sprays BID. GERD - Pantoprazole 40MG daily. Hypokalemia - KCL 40MEQ daily. Muscle spasm - Tizanidine 2MG TID. Insomnia - Trazodone 50MG QHS. Vitamin B12 deficiency - B12 1000MCG daily.
--- NOTE | 2017-12-23 15:18 | HP.PCM_ITS ---
Problem List (1) Wound abscess Status: Acute (2) Squamous cell carcinoma, face Status: Acute (3) Edema Status: Chronic (4) Atrial fibrillation Status: Chronic (5) Sleep apnea Status: Chronic (6) GERD (gastroesophageal reflux disease) Status: Chronic (7) Insomnia Status: Chronic (8) Neuropathic pain Status: Chronic (9) Osteomyelitis of mandible Status: Acute (10) Facial cellulitis Status: Acute (11) Asthma Status: Chronic Qualifiers: (12) Obesity Status: Chronic (13) Chronic diastolic heart failure Status: Chronic (14) HTN (hypertension) Status: Chronic Qualifiers: (15) HLD (hyperlipidemia) Status: Chronic Qualifiers: (16) Diabetes mellitus Status: Chronic Qualifiers: (17) COPD (chronic obstructive pulmonary disease) Status: Chronic Qualifiers: (18) Basal cell carcinoma of face Status: Chronic Comment: Left face-has had 2 surgeries so far the first in February of 2015 History of Present Illness Date of Admission: 12/23/17 Chief Complaint: Here for rehabilitation, strengthening, prior to discharge home alone. The patient is a 67 year old Female with below past medical history presented to [facility] Emergency Department 12/18/2017 with chin wound. Chin wound, abscess. Concern with osteomyelitis, Dr. Soto incised and drained 12/06/2017. Dr. Henderson consulted, patient on Keflex, Doxycycline. Increase facial swelling, drainage, increased pain. History of squamous cell cancer of lip. Open wound chin down to mandible. Foul brown drainage. WBC 9.1, Hemoglobin 11.2, Hematocrit 34.5. BMP okay. ESR 44, CRP 6.39. Wound, blood cultures sent. Vancomycin IV given. 12/18/2017 Admit to Hospital. Vancomycin, Ceftriaxone IV for chin infection. 12/19/2017 Dr. Henderson recommended Vancomycin, Ceftriaxone, Metronidazole for coverage. Consult oncology for squamous cell cancer of face. 12/19/2017 Dr. Soto recommended further excision of squamous cell cancer after infection cleared. Wound infection improved, antibiotics stopped. Need outpatient surgery to clear squamous cell cancer of face. 12/23/2017 Admit to TCU with debility, here for rehabilitation, strengthening, prior to discharge home alone, consider exterminator care placement. Past Medical History Past Medical History (Chronic Problems): Chronic Problems (Last Reviewed 12/04/17 @ 01:53 by Sanjay Rhodes MD) Edema (Chronic) Atrial fibrillation (Chronic) Sleep apnea (Chronic) GERD (gastroesophageal reflux disease) (Chronic) Insomnia (Chronic) Neuropathic pain (Chronic) Personal history of malignant neoplasm of other sites of lip, oral cavity, and pharynx (Chronic) Personal history of skin cancer (Chronic) Asthma (Chronic) Obesity (Chronic) Atrial enlargement, left (Chronic) BMI 40.0-44.9, adult (Chronic) Chronic diastolic (congestive) heart failure (Chronic) Diastolic dysfunction (Chronic) Sinus bradycardia (Chronic) Fatigue (Chronic) Long-term use of high-risk medication (Chronic) Bilateral lower extremity edema (Chronic) History of cardioversion (Chronic ~10/01/16) H/O right and left heart catheterization (Chronic ~05/15/15) H/O basal cell carcinoma excision (Chronic) Recurrent basal cell carcinoma following excision (Chronic) Persistent atrial fibrillation (Chronic) Chronic diastolic heart failure (Chronic) 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) HTN (hypertension) (Chronic) HLD (hyperlipidemia) (Chronic) Diabetes mellitus (Chronic) COPD (chronic obstructive pulmonary disease) (Chronic) NICKOLAS (obstructive sleep apnea) (Chronic) Morbid obesity (Chronic) Basal cell carcinoma of face (Chronic) Left face-has had 2 surgeries so far the first in February of 2015 Medical History: Medical History (Last Reviewed 12/04/17 @ 01:53 by Sanjay Rhodes MD) Asthma (Chronic) J45.909 Obesity (Chronic) E66.9 Atrial enlargement, left (Chronic) I51.7 BMI 40.0-44.9, adult (Chronic) Z68.41 History of syncope (Acute) Z87.898 Chronic diastolic (congestive) heart failure (Chronic) I50.32 Diastolic dysfunction (Chronic) I51.9 Sinus bradycardia (Chronic) R00.1 Fatigue (Chronic) R53.83 Long-term use of high-risk medication (Chronic) Z79.899 Syncope (Acute) R55 Bilateral lower extremity edema (Chronic) R60.0 Recurrent basal cell carcinoma following excision (Chronic) C44.91 Persistent atrial fibrillation (Chronic) I48.1 Chronic diastolic heart failure (Chronic) I50.32 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) Z79.01 HTN (hypertension) (Chronic) I10 HLD (hyperlipidemia) (Chronic) E78.5 Diabetes mellitus (Chronic) E11.9 COPD (chronic obstructive pulmonary disease) (Chronic) J44.9 NICKOLAS (obstructive sleep apnea) (Chronic) G47.33 Morbid obesity (Chronic) E66.01 Basal cell carcinoma of face (Chronic) C44.310 Left face-has had 2 surgeries so far the first in February of 2015 Allergies ampicillin Allergy (Severe, Verified 12/18/17 19:41) Anaphylaxis hydrocodone bitartrate [From Vicodin] Allergy (Severe, Verified 12/18/17 19:41) Itching Penicillins Allergy (Severe, Verified 12/18/17 19:41) Anaphylaxis clarithromycin [From Biaxin] Allergy (Verified 12/18/17 19:41) Rash Red and itchy venom-honey bee [bee venom (honey bee)] Allergy (Verified 12/18/17 19:41) Nausea/Vom/Diarrhea Home Medications: Ambulatory Orders Medication Instructions Recorded Calcium Carbonate [Calcium] 500 mg PO BID 04/13/15 Diazepam [Valium] 10 mg PO TID 04/13/15 Metformin HCl [Glucophage] 1,000 mg PO QHS 04/13/15 Metformin HCl [Glucophage] 500 mg PO BREAKFAST 04/13/15 Omeprazole [Prilosec] 40 mg PO DAILY 04/13/15 traZODone [Desyrel] 50 mg PO QHS 04/13/15 Tizanidine HCl [Zanaflex] 2 mg PO TID 05/13/15 Oxycodone HCl/Acetaminophen 7.5 mg PO TID 07/20/16 [Percocet 10-325 mg Tablet] Albuterol Inhaler [Ventolin Hfa] 2 puff INHALATION Q4H PRN PRN #1 08/14/16 inhaler Gabapentin [Neurontin] 600 mg PO TID 01/26/17 atorvastatin 20 mg tablet 20 mg PO QHS tab 03/09/17 lisinopril 20 mg tablet 20 mg PO QDAY 03/09/17 insulin NPH isophane U- 100 human 18 unit SC QPM 04/18/17 100 unit/mL subcutaneous suspension insulin lispro (U- 100) 100 24 unit SC QAM 04/18/17 unit/mL subcutaneous solution Furosemide 40 mg PO TID 08/03/17 Insulin Lispro [Humalog] 10 unit SC LUNCH 08/03/17 Insulin Lispro [Humalog] 15 unit SQ DINNER 08/03/17 Insulin NPH Human [Humulin N Pen] 10 units SC DAILY@0730 08/03/17 warfarin 10 mg tablet 10 mg PO SUMOFRSA #30 tab 10/03/17 Biotin 1 tab PO DAILY 11/18/17 Diphenoxylate/Atrop [Lomotil] 1 tab PO Q6H PRN PRN 11/18/17 Folic Acid 0.8 mg PO DAILY 11/18/17 Ipratropium [place] 0.06% 2 spray NASAL BID 11/18/17 [ATROVENT NASAL SPRAY] Vitamin B12 2,000 unit PO DAILY 11/18/17 Amlodipine Besylate [Norvasc] 5 mg PO QDAY 12/23/17 Aspirin [Aspirin, Baby] 81 mg PO DAILY@0800 12/23/17 Carvedilol [Coreg (Beta Randall)] 6.25 mg PO BID 12/23/17 Cetirizine HCl [Zyrtec] 10 mg PO DAILY 12/23/17 Ferrous Sulfate 325 mg PO DAILY@0800 12/23/17 Flecainide Acetate 150 mg PO Q12H 12/23/17 Metolazone [Zaroxolyn] 2.5 mg PO .COMPLEX 12/23/17 Potassium Chloride [K-Dur] 40 meq PO QDAY 12/23/17 Warfarin [Coumadin] 7.5 mg PO TUWE12/23/17 Surgical History: Surgical History (Last Reviewed 12/04/17 @ 01:53 by Sanjay Rhodes MD) History of facial surgery (Resolved) Z98.890 History of tonsillectomy (Resolved) Z98.890, Z90.89 History of bilateral knee replacement (Resolved) Z98.890, Z96.653 History of cataract extraction (Resolved) Z98.49 History of cardioversion (Chronic) Onset Date: ~10/01/16 Z98.890 H/O right and left heart catheterization (Chronic) Onset Date: ~05/15/15 Z98.890 H/O basal cell carcinoma excision (Chronic) Z98.890, Z85.828 Surgical History: total knee arthroplasty - Bilateral, tonsillectomy, - - Surgeries to the left face for basal cell carcinoma involving the left lower eyelid and then plastic repair, recent 11/2017 surgical interventions w/ I+D MRSA abscess, partial ostectomy anterior mandible. 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 Lives: Alone Smoking Status: Never smoker Tobacco Use: Non-smoker Alcohol: None Drugs: None - *Family History Paternal Family History: Family History (Last Reviewed 10/25/17 @ 09:00 by Selina Richards) Mother Hypertension Diabetes Father Heart disease Hypertension Diabetes Sister Hypertension Brother Diabetes History Items: Cancer, Diabetes, Hypertension Maternal Family History: Family History (Last Reviewed 10/25/17 @ 09:00 by Selina Richards) Mother Hypertension Diabetes Father Heart disease Hypertension Diabetes Sister Hypertension Brother Diabetes History Items: Heart Disease, Hypertension Sibling Family History: Family History (Last Reviewed 10/25/17 @ 09:00 by Selina Richards) Mother Hypertension Diabetes Father Heart disease Hypertension Diabetes Sister Hypertension Brother Diabetes History Items: Heart Disease Review of Systems Constitutional: Denies: Chills, Fever, Weight Change HEENT: Denies: Head Aches, Sinus Congestion, Sinus Drainage Cardiovascular: Denies: Chest Pain, Palpitations Respiratory: Denies: Cough, Shortness of breath at rest, Sputum production Gastrointestinal: Denies: Abdominal Pain, Nausea, Vomiting Genitourinary: Denies: Dysuria Musculoskeletal: Denies: Joint Pain, Joint Tenderness Skin: Denies: Rash, Wounds Neurological: Denies: Numbness, Tingling, Focal weakness Psychiatric: Denies: Anxiety, Depression, Homicidal Ideations, Suicidal Ideations Hematologic/ Lymphatic: Denies: Easy Bruising, Easy Bleeding VTE Information - Inpt Only VTE Present on Admission: No VTE Mechan Device Prophylaxis: Knee High MARYCHUY Hose VTE Pharm Prophylaxis ordered?: No Reason prophylaxis not ordered:: Treatment Not Indicated Patient Problems: Active and Suspected Problems (Last Reviewed 12/04/17 @ 01:53 by Sanjay Rhodes MD) Wound abscess (Acute) Squamous cell carcinoma, face (Acute) - Physical Exam General: Alert, Oriented x3, Cooperative HEENT: Atraumatic, PERRLA, EOMI, Normocephalic Oral: - - Chin wound dressed. Neck: Supple, No JVD, Negative Carotid Bruits Lungs: Clear to auscultation, Normal air movement Cardiovascular: Regular rate, No murmurs Abdomen: Bowel Sounds Present, Soft, Non Tender Extremities: No edema, Capillary Refill Less than 3 Seconds Skin: No rashes, No breakdown Musculoskeletal: No Tenderness to Palpation of Joints or Extremities Neurological: Cranial nerves II-XII grossly intact Psych/Mental Status: Normal Affect, Appropriate Finger Stick Blood Glucose 117 Assessment/Plan All Active Problems (Last Reviewed 12/04/17 @ 01:53 by Sanjay Rhodes MD) Wound abscess (Acute) Squamous cell carcinoma, face (Acute) Osteomyelitis of mandible (Acute) Abscess of chin (Acute) Methicillin resistant Staphylococcus aureus infection (Acute) Facial cellulitis (Acute) History of facial surgery (Resolved) History of tonsillectomy (Resolved) History of bilateral knee replacement (Resolved) History of cataract extraction (Resolved) History of syncope (Acute) Syncope (Acute) Acute asthmatic bronchitis (Resolved) Acute exacerbation of CHF (congestive heart failure) (Resolved) Atrial fibrillation with RVR (Resolved) Paroxysmal A-fib (Resolved) SOB (shortness of breath) (Resolved) 67 year old female with below past medical history significant for squamous cell cancer of face, hospitalized for chin wound infection, treated with intravenous antibiotics, need outpatient surgery to excise squamous cell cancer, admitted to TCU with debility, here for rehabilitation, strengthening, prior to discharge home alone, consider exterminator care placement. * Debility - PT/OT. * Pain - Tylenol 1000MG Q8H PRN mild pain, Oxycodone 7.5MG TID. * Bowel - Miralax 17GM daily, Senna/colace 2 tablets BID, Dulcolax 10MG PO daily PRN. * Pneumonia vaccination - Administer Prevnar 13 and/or Pneumovax 23 as necessary. * DVT prophylaxis - Not necessary, already on warfarin. * Shortness of breath - Albuterol 2 puffs Q4H PRN. * Hypertension - Coreg 6.25MG BID, Lisinopril 20MG daily, Amlodipine 5MG daily. * Chronic diastolic heart failure - Coreg 6.25MG BID, Lisinopril 20MG daily, Lasix 60MG TID. * Coronary artery disease - Coreg 6.25MG BID, Lisinopril 20MG daily, Aspirin 81MG daily. * Hyperlipidemia - Atorvastatin 20MG QHS. * Calcium deficiency - Calcium 500MG BID. * Anxiety - Diazepam 10MG TID. * Iron deficiency anemia - Ferrex 150MG daily. * Atrial Fibrillation - Coreg 6.25MG BID, Flecainide 150MG Q12H, Warfarin 7.5/10MG alternating, follow INR. * Folate deficiency - Folic acid 1MG daily. * Neuropathic pain - Gabapentin 600MG TID. * Diabetes Mellitus II - Metformin 500MG AM, 1000MG PM, Insulin N 10 units AM, 18 units PM, Humalog 24 units AM, 10 units Lunch, 15 units PM. * Allergic rhinitis - Loratadine 10MG daily, Atrovent 2 sprays BID. * GERD - Pantoprazole 40MG daily. * Hypokalemia - KCL 40MEQ daily. * Muscle spasm - Tizanidine 2MG TID. * Insomnia - Trazodone 50MG QHS. * Vitamin B12 deficiency - B12 1000MCG daily.
[2017-12-23] MEDS: Acetaminophen 500 MG Tablet 1000 MG PO (17:22)
[2017-12-23] MEDS: Gabapentin 600 MG Tablet PO (17:27)
[2017-12-23] MEDS: Calcium (Elemental) 500 MG Tablet PO (17:31)
[2017-12-23] MEDS: Carvedilol 6.25 MG Tablet PO (17:35)
[2017-12-23] MEDS: Flecainide 150 MG Tablet PO (17:35)
[2017-12-23] MEDS: Senna/Docusate Sodium 1 Tablet 2 TABLET PO (17:40)
[2017-12-23] MEDS: Insulin Lispro 100 UNIT/ML INSULN.PEN 15 UNIT SC (18:47)
[2017-12-23 18:55] LABS: Bedside Glucose 158 mg/dL (70-110)
--- NOTE | 2017-12-23 20:22 | NURSING ---
Pt remains in precautions this shift dt MRSA in wound.
[2017-12-23 21:25] LABS: Bedside Glucose 130 mg/dL (70-110)
--- NOTE | 2017-12-23 21:48 | NURSING ---
Dr Padilla notified of this evening's blood sugar of 130. N.O. to hold this evening's Humilin.
[2017-12-23] MEDS: traZODone 50 MG Tablet PO (22:00)
[2017-12-23] MEDS: Atorvastatin Calcium 20 MG Tablet PO (22:00)
[2017-12-23] MEDS: oxyCODONE 5 MG Tablet 10 MG PO (22:00)
[2017-12-23] MEDS: Furosemide 20 MG Tablet 60 MG PO (22:00)
[2017-12-23] MEDS: metFORMIN HCl 1,000 MG Tablet 1000 MG PO (22:00)
[2017-12-23] MEDS: tiZANidine HCl 2 MG Tablet PO (22:02)
[2017-12-23] MEDS: diazePAM 5 MG Tablet 10 MG PO (22:02)
[2017-12-24] MEDS: Ipratropium Bromide 0.06% NASAL SPRAY 2 SPRAY NASAL ×2 (06:06→19:15)
[2017-12-24] MEDS: diazePAM 5 MG Tablet 10 MG PO ×2 (06:16→14:15)
[2017-12-24] MEDS: oxyCODONE 5 MG Tablet 10 MG PO ×2 (06:16→14:16)
[2017-12-24] MEDS: Loratadine 10 MG Tablet PO (06:18)
[2017-12-24] MEDS: Carvedilol 6.25 MG Tablet PO ×2 (06:18→19:11)
[2017-12-24] MEDS: Nystatin Powder 15gm Bottle 1 APPLIC TOPICAL ×2 (06:19→19:14)
[2017-12-24] MEDS: Polyethylene Glycol 3350 17 GM PACKET PO (06:19)
[2017-12-24] MEDS: amLODIPine 5 MG Tablet PO (06:19)
[2017-12-24] MEDS: Furosemide 20 MG Tablet 60 MG PO ×2 (06:19→14:09)
[2017-12-24] MEDS: Flecainide 150 MG Tablet PO ×2 (06:20→19:13)
[2017-12-24] MEDS: Cyanocobalamin 500 MCG Tablet 2000 MCG PO ×2 (06:20→19:08)
[2017-12-24] MEDS: Pantoprazole Sodium 40 MG Tablet PO (06:20)
[2017-12-24] MEDS: tiZANidine HCl 2 MG Tablet PO ×2 (06:21→14:12)
[2017-12-24] MEDS: Lisinopril 20 MG Tablet PO (06:21)
[2017-12-24] MEDS: Senna/Docusate Sodium 1 Tablet 2 TABLET PO ×2 (06:22→19:12)
[2017-12-24 06:45] LABS: Bedside Glucose 120 mg/dL (70-110)
[2017-12-24] MEDS: Calcium (Elemental) 500 MG Tablet PO ×2 (08:17→19:10)
[2017-12-24] MEDS: Folic Acid 1 MG Tablet PO (08:17)
[2017-12-24] MEDS: Iron Polysaccharide Complex 150 MG CAPSULE PO (08:17)
[2017-12-24] MEDS: Aspirin 81 MG TAB.CHEW PO (08:17)
[2017-12-24] MEDS: Gabapentin 600 MG Tablet PO ×3 (08:17→19:11)
[2017-12-24 08:32] LABS: Anion Gap 10 (5-15); BUN 18 mg/dL (7-18); BUN/Creat Ratio 16.2 RATIO (10-20); Calcium,Total 8.6 mg/dL (8.5-10.1); Chloride 102 mmol/L (98-107); Creatinine, Serum 1.11 mg/dL (0.55-1.02); EST Glomerular Filtration Rate 52 mL/min (>60); Est Glom Filt Rate - Afr Amer 63 mL/min (>60); Estimated Creatinine Clearance 39.57 ml/min; Glucose 144 mg/dL (74-106); Potassium 4.1 mmol/L (3.5-5.1); Sodium Level 140 mmol/L (136-145)
[2017-12-24 10:26] LABS: Bedside Glucose 125 mg/dL (70-110)
[2017-12-24] MEDS: Insulin Lispro 100 UNIT/ML INSULN.PEN 24 UNIT SC (10:57)
[2017-12-24 11:41] LABS: Bedside Glucose 239 mg/dL (70-110)
[2017-12-24] MEDS: Insulin NPH Human 100 UNITS/ML PEN 10 UNITS SC (12:06)
[2017-12-24] MEDS: Tuberculin,Purif.prot.deriv. 50 TU/ML Vial 5 ML ID (12:07)
--- NOTE | 2017-12-24 12:24 | NURSING ---
Addendum entered by Kay Condon 12/24/17 12:26: Dr Padilla updated this AM Original Note: pt removed from precautions, final wound culture results back w/results presumptive c albicans. I.D. saw pt finished antibiotics. Dressing maintained to chin wound.
[2017-12-24] MEDS: Insulin Lispro 100 UNIT/ML INSULN.PEN 10 UNIT SC (14:10)
[2017-12-24 14:16] LABS: Bedside Glucose 201 mg/dL (70-110)
[2017-12-24 15:31] LABS: Bedside Glucose 189 mg/dL (70-110)
[2017-12-24 15:40] VITALS: BP 102/63; PULSE 69; RESP 14; TEMP 35.9; O2SAT 93
[2017-12-24 17:01] LABS: Bedside Glucose 125 mg/dL (70-110)
[2017-12-24] MEDS: Glucerna Shake 120 ML LIQUID PO (19:07)
[2017-12-24 19:08] VITALS: BP 126/86; PULSE 95; RESP 18; TEMP 36.4; O2SAT 93
[2017-12-24] MEDS: Insulin Lispro 100 UNIT/ML INSULN.PEN 15 UNIT SC (19:18)
[2017-12-24 20:06] LABS: Bedside Glucose 133 mg/dL (70-110)
[2017-12-24 20:50] LABS: Bedside Glucose 123 mg/dL (70-110)
[2017-12-24 21:00] VITALS: RESP 14
[2017-12-24 21:21] VITALS: BP 99/68; PULSE 67; RESP 14; O2SAT 94
[2017-12-24] MEDS: traZODone 50 MG Tablet PO (21:35)
[2017-12-24] MEDS: Atorvastatin Calcium 20 MG Tablet PO (21:35)
[2017-12-24] MEDS: metFORMIN HCl 1,000 MG Tablet 1000 MG PO (21:35)
[2017-12-24 22:34] LABS: Hematocrit 32.6 % (37-47); Hemoglobin 9.7 g/dl (12.0-15.0); Mean Corp Hgb Conc 29.8 g/gl (32-36); Mean Corpuscular Hgb 27.4 pg (27.0-32.0); Mean Corpuscular Volume 92.1 fL (81-99); RBC Distribution Width CV 15.1 % (11.6-14.6); Red Blood Count 3.54 M/mm3 (4.2-5.4); White Blood Count 7.5 K/mm3 (4.4-11.0)
[2017-12-24 22:35] LABS: Absolute Lymphocyte Count 1.53 X10^3/ul (0.83-4.51); Basophil# 0.03 X10^3/uL; Basophil% 0.4 % (0-1); Eosinophil# 0.29 X10^3/uL; Eosinophils% 3.9 % (0-5); Lymphocyte # 1.53 X10^3/ul (4.0); Lymphocyte % 20.5 % (19-41); Mean Platelet Vol. 10.7 fl (6.2-12.0); Neutrophil # 5.02 X10^3/uL (2.7-7.7); Neutrophil % 67.1 % (47-70); POSITIVE COUNT NO; POSITIVE DIFFERENTIAL NO; POSITIVE MORPHOLOGY NO; Platelet Count 336 K/mm3 (150-450); RBC Distribution Width SD 51.4 fl (35.1-43.9)
[2017-12-24 22:41] LABS: International Normalized Ratio 2.7; Prothrombin Time (Protime)PT. 29.2 SECONDS (11.7-14.9)
[2017-12-24 23:29] LABS: Anion Gap 5 (5-15); BUN 24 mg/dL (7-18); BUN/Creat Ratio 18.3 RATIO (10-20); Calcium,Total 8.4 mg/dL (8.5-10.1); Chloride 102 mmol/L (98-107); Creatinine, Serum 1.31 mg/dL (0.55-1.02); EST Glomerular Filtration Rate 43 mL/min (>60); Est Glom Filt Rate - Afr Amer 52 mL/min (>60); Estimated Creatinine Clearance 33.53 ml/min; Glucose 78 mg/dL (74-106); Potassium 4.3 mmol/L (3.5-5.1); Sodium Level 138 mmol/L (136-145)
--- NOTE | 2017-12-25 03:39 | NURSING ---
pt ambulated to the the with 2 assists. pt having difficulty staying up right on the toilet, at this time speech is noted to be slurred at this time as well. pt returned to bed with chair and 3 assists d/t difficulty standing.
--- NOTE | 2017-12-25 03:40 | NUR.TO.PHY ---
Called out to go to BR. Patient remains lethargic this AM. Falling asleep while on toilet and having difficulty standing, requiring many verbal cues. x2-3 assist back to bed. Patient immediately back to sleep when in bed.
[2017-12-25] MEDS: Flecainide 150 MG Tablet PO ×2 (04:53→17:55)
[2017-12-25] MEDS: Polyethylene Glycol 3350 17 GM PACKET PO (04:53)
[2017-12-25] MEDS: Menthol/Lanolin/Calamine/Znox 113 GM Tube 1 APPLIC TOPICAL ×2 (04:53→17:56)
[2017-12-25] MEDS: Senna/Docusate Sodium 1 Tablet 2 TABLET PO ×2 (04:53→17:55)
[2017-12-25] MEDS: Glucerna Shake 120 ML LIQUID PO ×4 (04:53→20:50)
[2017-12-25] MEDS: Furosemide 20 MG Tablet 60 MG PO ×3 (04:54→20:52)
[2017-12-25] MEDS: Nystatin Powder 15gm Bottle 1 APPLIC TOPICAL ×2 (04:54→17:56)
[2017-12-25 04:55] VITALS: BP 115/56; PULSE 78
[2017-12-25] MEDS: Lisinopril 20 MG Tablet PO (04:58)
[2017-12-25] MEDS: amLODIPine 5 MG Tablet PO (04:59)
[2017-12-25] MEDS: Pantoprazole Sodium 40 MG Tablet PO (04:59)
[2017-12-25] MEDS: Loratadine 10 MG Tablet PO (04:59)
[2017-12-25] MEDS: Ipratropium Bromide 0.06% NASAL SPRAY 2 SPRAY NASAL ×2 (04:59→17:55)
[2017-12-25] MEDS: Carvedilol 6.25 MG Tablet PO ×2 (04:59→17:55)
--- NOTE | 2017-12-25 06:17 | NUR.TO.PHY ---
Patient more awake and less lethargic this AM while up to BR. Now a x1 assist and is able to stay awake while on toilet. Does not require as many verbal commands. No longer slurring words but still difficult to understand d/t wound. Did fall back asleep quickly once to bed.
[2017-12-25 07:26] LABS: Bedside Glucose 131 mg/dL (70-110)
[2017-12-25] MEDS: Calcium (Elemental) 500 MG Tablet PO ×2 (08:57→17:54)
[2017-12-25] MEDS: Gabapentin 600 MG Tablet PO ×3 (08:57→17:54)
[2017-12-25] MEDS: Aspirin 81 MG TAB.CHEW PO (08:58)
[2017-12-25] MEDS: Iron Polysaccharide Complex 150 MG CAPSULE PO (08:58)
[2017-12-25] MEDS: Folic Acid 1 MG Tablet PO (08:58)
[2017-12-25 11:11] LABS: Bedside Glucose 165 mg/dL (70-110)
--- NOTE | 2017-12-25 12:24 | NURSING ---
Pt wet to dry dressing to chin changed, secured with medipore tape.
[2017-12-25] MEDS: Insulin Lispro 100 UNIT/ML INSULN.PEN 10 UNIT SC (13:21)
[2017-12-25] MEDS: oxyCODONE 5 MG Tablet 10 MG PO (14:46)
[2017-12-25 15:45] VITALS: BP 119/68; PULSE 100; RESP 18; TEMP 36.4; O2SAT 96
[2017-12-25 17:15] LABS: Bedside Glucose 183 mg/dL (70-110)
[2017-12-25] MEDS: Insulin Lispro 100 UNIT/ML INSULN.PEN 15 UNIT SC (17:53)
[2017-12-25] MEDS: tiZANidine HCl 2 MG Tablet PO (18:15)
--- NOTE | 2017-12-25 20:00 | NURSING ---
Patient rang for assistance in using the toilet. Patient lethargic, slow speech, and slow to respond. Patient having a hard time getting out of bed a this time. Aide in to room to assist this nurse at this time to help patient to bathroom. Patient able to walk to toilet at this time. Patient continues to have slow speech and slow to respond but patient is much more able to walk and get to the toilet and back to bed. Patient alert and oriented x 2, forgetful of time at this time.
[2017-12-25] MEDS: traZODone 50 MG Tablet PO (20:51)
[2017-12-25] MEDS: metFORMIN HCl 1,000 MG Tablet 1000 MG PO (20:52)
[2017-12-25] MEDS: Atorvastatin Calcium 20 MG Tablet PO (20:54)
[2017-12-25 21:16] LABS: Bedside Glucose 131 mg/dL (70-110)
[2017-12-26 06:00] VITALS: BP 112/64; PULSE 92
[2017-12-26] MEDS: Menthol/Lanolin/Calamine/Znox 113 GM Tube 1 APPLIC TOPICAL ×2 (06:00→18:02)
[2017-12-26 06:02] LABS: Absolute Lymphocyte Count 1.21 X10^3/ul (0.83-4.51); Absolute Neutrophil Count 4.7 X10^3/uL (2.0-7.7); Basophil# 0.03 X10^3/uL; Basophil% 0.4 % (0-1); Eosinophil# 0.18 X10^3/uL; Eosinophils% 2.7 % (0-5); Hematocrit 36.2 % (37-47); Hemoglobin 10.8 g/dl (12.0-15.0); Lymphocyte # 1.21 X10^3/ul (4.0); Lymphocyte % 17.8 % (19-41); Mean Corp Hgb Conc 29.8 g/gl (32-36); Mean Corpuscular Hgb 27.2 pg (27.0-32.0); Mean Corpuscular Volume 91.2 fL (81-99); Mean Platelet Vol. 11.1 fl (6.2-12.0); Monocyte# 0.64 X10^3/uL; Monocyte% 9.4 % (0-10); Neutrophil # 4.71 X10^3/uL (2.7-7.7); Neutrophil % 69.6 % (47-70); Platelet Count 333 K/mm3 (150-450); RBC Distribution Width CV 14.6 % (11.6-14.6); RBC Distribution Width SD 48.5 fl (35.1-43.9); Red Blood Count 3.97 M/mm3 (4.2-5.4); White Blood Count 6.8 K/mm3 (4.4-11.0)
[2017-12-26 06:09] LABS: POSITIVE COUNT NO; POSITIVE DIFFERENTIAL NO; POSITIVE MORPHOLOGY NO
[2017-12-26 06:20] LABS: International Normalized Ratio 3.2; Prothrombin Time (Protime)PT. 33.2 SECONDS (11.7-14.9)
[2017-12-26 06:30] LABS: Bedside Glucose 126 mg/dL (70-110)
--- NOTE | 2017-12-26 06:48 | RAD_ITS ---
STUDY: X-RAY CHEST REASON FOR EXAM: Female, 67 years old. Shortness of breath. TECHNIQUE: Single AP portable view of the chest. COMPARISON: Chest radiograph dated December 05, 2017. FINDINGS: The lungs are clear and expanded. There is no demonstrated pleural abnormality. There is mild cardiac enlargement. Normal mediastinum and barbara. There is prominence of the pulmonary hilar arteries without peripheral pulmonary vascular congestion. There is atherosclerotic calcification of the aortic arch with tortuosity. There is demineralization of the osseous structures. Normal visualized ribs, clavicles, and shoulders. There is no demonstrated abnormality of the visualized soft tissue structures of the upper abdomen. RAD/Chest 1 View (Portable) IMPRESSION: Cardiomegaly without radiographic evidence of acute cardiopulmonary disease. Electronically Signed: Vicki Abel MD at 9:49 EDT , Service support ,
--- NOTE | 2017-12-26 06:49 | RAD_ITS ---
STUDY: X-RAY - ABDOMEN/PELVIS REASON FOR EXAM: Female, 67 years old. Abdominal pain. TECHNIQUE: Two AP supine views of the abdomen and pelvis. COMPARISON: None. FINDINGS: Normal visualized lung bases. There is an unremarkable bowel gas pattern. There is no demonstrated free abdominal air. There is no obvious organomegaly, mass or dilated bowel. No pathologic calcifications are visualized. Normal soft tissue structures. There are degenerative changes of both hips with acetabular spurs. There are also mild multilevel degenerative changes of the imaged thoracic and lumbar spine. RAD/Abdomen Single View (Portable) IMPRESSION: No radiographic evidence of acute intra-abdominal disease. Electronically Signed: Vicki Abel MD at 9:51 EDT , Service support ,
--- NOTE | 2017-12-26 06:51 | NURSING ---
Patient very lethargic this morning. Patient responsive to touch and verbal stimili, however patient falls asleep quickly. Patient has been confused and lethargic off and on all night. BP 112/64 P 92. O2 95 on room air. Blood Sugar 126. Dr. Padilla notified. New orders given.
[2017-12-26 07:07] LABS: Anion Gap 7 (5-15); BUN 19 mg/dL (7-18); BUN/Creat Ratio 16.8 RATIO (10-20); Calcium,Total 8.7 mg/dL (8.5-10.1); Chloride 100 mmol/L (98-107); Creatinine, Serum 1.13 mg/dL (0.55-1.02); EST Glomerular Filtration Rate 51 mL/min (>60); Est Glom Filt Rate - Afr Amer 61 mL/min (>60); Estimated Creatinine Clearance 38.87 ml/min; Glucose 120 mg/dL (74-106); Sodium Level 141 mmol/L (136-145)
[2017-12-26 07:12] LABS: Bacteria 0 SEEN /hpf (None Seen); Mucous, Urine 0 SEEN /hpf (<or=2+); Red Blood Cells-Urine 0 SEEN /hpf (0-5); White Blood Cells 0 SEEN /hpf (0-5)
[2017-12-26 07:31] LABS: Color, Urine Yellow (Yellow); Glucose, Dipstick Normal (Normal); Ketone-Dipstick Negative (Negative); Leukocyte Esterase-Dipstick Negative /ul (Negative); Nitrite-Dipstick Negative (Negative); Occult Blood-Urine Negative /ul (Negative); Protein-Dipstick Negative (Negative); Urine Bilirubin Dipstick Negative (Negative); Urine Clarity Sl. Cloudy (Clear); Urine Urobilinogen Normal (Normal)
[2017-12-26 07:38] LABS: Squamous Epithelial Cells - UA 0-5 SEEN /hpf (5-10)
[2017-12-26 08:06] VITALS: BP 129/66; PULSE 84; RESP 16; TEMP 36; O2SAT 96
[2017-12-26] MEDS: Ipratropium Bromide 0.06% NASAL SPRAY 2 SPRAY NASAL ×2 (08:08→17:54)
[2017-12-26] MEDS: Furosemide 20 MG Tablet 60 MG PO ×3 (08:15→21:14)
[2017-12-26] MEDS: Flecainide 150 MG Tablet PO ×2 (08:16→17:55)
[2017-12-26] MEDS: Gabapentin 600 MG Tablet PO ×3 (08:16→17:53)
[2017-12-26] MEDS: Carvedilol 6.25 MG Tablet PO ×2 (08:16→17:58)
[2017-12-26] MEDS: Polyethylene Glycol 3350 17 GM PACKET PO (08:17)
[2017-12-26] MEDS: Nystatin Powder 15gm Bottle 1 APPLIC TOPICAL ×2 (08:18→16:46)
[2017-12-26] MEDS: Senna/Docusate Sodium 1 Tablet 2 TABLET PO ×2 (08:19→17:55)
[2017-12-26] MEDS: oxyCODONE 5 MG Tablet 10 MG PO ×2 (08:29→16:44)
--- NOTE | 2017-12-26 10:48 | NURSING ---
Awake. Up to bathroom and then will shower with the assist of therapy. Dressing removed at this time from her chin.
[2017-12-26 11:16] LABS: Bedside Glucose 196 mg/dL (70-110)
[2017-12-26] MEDS: Loratadine 10 MG Tablet PO (11:39)
[2017-12-26] MEDS: Glucerna Shake 120 ML LIQUID PO ×2 (11:39→17:51)
[2017-12-26] MEDS: Pantoprazole Sodium 40 MG Tablet PO (11:40)
[2017-12-26] MEDS: Cyanocobalamin 500 MCG Tablet 2000 MCG PO (11:40)
[2017-12-26] MEDS: Aspirin 81 MG TAB.CHEW PO (11:41)
[2017-12-26] MEDS: Iron Polysaccharide Complex 150 MG CAPSULE PO (11:41)
[2017-12-26] MEDS: Folic Acid 1 MG Tablet PO (11:42)
[2017-12-26] MEDS: Calcium (Elemental) 500 MG Tablet PO ×2 (11:44→17:53)
[2017-12-26] MEDS: Lisinopril 20 MG Tablet PO (11:47)
[2017-12-26] MEDS: amLODIPine 5 MG Tablet PO (11:47)
[2017-12-26] MEDS: Acetaminophen 500 MG Tablet 1000 MG PO (11:57)
--- NOTE | 2017-12-26 11:57 | NURSING ---
wound photo: chin
--- NOTE | 2017-12-26 12:21 | NURSING ---
Resident up in chair. Raquel, wound RN doing dressing change to her chin. Resident states that she was mistaken and her appt is not scheduled for today. She goes on to tell this RN that she would like and ITZ today. States my friend is coming and she is going to take me home for just a bit to get my car. I need to drive it to the hospital. I have people at my place that are living in my house and using my car and other things and they do not have their drivers license.. This nurse voices concerns about resident driving due to her current narcotic use, lethargy this AM, and therapy currently states weakness and some leaning that they noticed and they would not recommend driving as well. This nurse suggests that friend pulls her keys to the car and brings them to her but resident states no i cant do that. I will be ok to drive. This conversation relayed to rn relief charge, Sammi.
--- NOTE | 2017-12-26 12:31 | NURSING ---
Resident does not want to take Magnesium citrate at this time for her bowels. States she has been having BM's and does not feel the need to have a BM. Also, orders lunch to be delivered at 1400. This RN will hold Humolog till lunch comes for resident. Also, was resident was up to bathroom to urinate, there was some blood noted while wiping. Urine clear. Will continue to monitor.
[2017-12-26 13:50] LABS: Bedside Glucose 190 mg/dL (70-110)
[2017-12-26] MEDS: Insulin Lispro 100 UNIT/ML INSULN.PEN 10 UNIT SC ×2 (13:57→17:59)
--- NOTE | 2017-12-26 14:04 | NURSING ---
Eating lunch at this time. Insulin given.
--- NOTE | 2017-12-26 14:34 | NURSING ---
THIS NURSE IN TO SPEAK TO PT ABOUT PT WANTING TO LEAVE HOSP TO GET HER CAR AND DRIVE IT TO THE HOSP. THIS NURSE AND JACK TERESA INFORMED PT THAT IT'S NOT RECOMMENDED THAT SHE DRIVE AT THIS TIME D/T BEING LETHARGIC THIS AM, THERAPY REPORTING WEAKNESS WHEN UP AND BEING ON NARCOTIC PAIN MED.PT STATES SHE'S DRIVEN WHEN TAKING PAIN MEDS BEFORE. IT WAS REITERATED THAT PT IS NOT TO BE DRIVING AT THIS TIME. PT'S FRIEND PRESENT FOR THIS CONVERSATION AND VOICES UNDERSTANDING AND ASSISTS TO REINFORCE RECOMMENDATION TO PT. NURSES AND PT'S FRIEND SUGGEST SOLUTIONS- PT RELUCTANTLY AGREEABLE TO HAVING CAR HERE AND NOT DRIVING.
--- NOTE | 2017-12-26 14:50 | PCM.PN.RX ---
<Uvaldo Amezcua Robbie - Last Filed: 12/26/17 14:50> Progress Note - Pharmacy Subjective: TCU Admission Objective: Allergies ampicillin Allergy (Severe, Verified 12/18/17 19:41) Anaphylaxis hydrocodone bitartrate [From Vicodin] Allergy (Severe, Verified 12/18/17 19:41) Itching Penicillins Allergy (Severe, Verified 12/18/17 19:41) Anaphylaxis clarithromycin [From Biaxin] Allergy (Verified 12/18/17 19:41) Rash Red and itchy venom-honey bee [bee venom (honey bee)] Allergy (Verified 12/18/17 19:41) Nausea/Vom/Diarrhea Current Medications Generic Name Dose Route Start Last Admin Trade Name Freq PRN Reason Stop Dose Admin Acetaminophen 1,000 mg 12/23/17 15:48 12/26/17 11:57 Tylenol PO 1,000 mg Q8H PRN PRN Administration MILD PAIN (1-3/10) Albuterol Sulfate 2 puff 12/23/17 14:47 12/23/17 17:41 Ventolin Hfa (Sp) INHALATION 2 puff Q4H PRN PRN Administration SOB wheezing Amlodipine Besylate 5 mg 12/24/17 06:00 12/26/17 11:47 Norvasc PO 5 mg DAILY AMIE Administration Aspirin 81 mg 12/24/17 08:00 12/26/17 11:41 Aspirin, Baby PO 81 mg DAILY@0800 AMIE Administration Atorvastatin Calcium 20 mg 12/23/17 22:00 12/25/17 20:54 Lipitor PO 20 mg QHS AMIE Administration Bisacodyl 10 mg 12/23/17 15:01 Dulcolax PO DAILY PRN Constipation Calamine/Phenol 1 applic 12/25/17 06:00 12/26/17 06:00 Calmoseptine Ointment TOPICAL 1 applicatio BID AMIE Administration Protocol Calcium Carbonate 500 mg 12/23/17 17:00 12/26/17 11:44 Os-Kirill 500 PO 500 mg BIDCM AMIE Administration Carvedilol 6.25 mg 12/23/17 18:00 12/26/17 08:16 Coreg PO 6.25 mg BID AMIE Administration Cyanocobalamin 2,000 mcg 12/24/17 06:00 12/26/17 11:40 Vitamin B12 PO 2,000 mcg DAILY AMIE Administration Diazepam 10 mg 12/24/17 21:20 Valium PO TID PRN PRN MUSCLE SPASM Flecainide Acetate 150 mg 12/23/17 18:00 12/26/17 08:16 Tambocor PO 150 mg Q12 AMIE Administration Folic Acid 1 mg 12/24/17 08:00 12/26/17 11:42 Folic Acid PO 1 mg DAILY@0800 [facility] Administration Furosemide 60 mg 12/23/17 22:00 12/26/17 14:02 Lasix PO 60 mg TID AMIE Administration Gabapentin 600 mg 12/23/17 17:45 12/26/17 14:02 Neurontin PO 600 mg TIDCM [facility] Administration Guaifenesin 600 mg 12/26/17 18:00 Mucinex PO BID [facility] Insulin Glargine 15 units 12/26/17 08:00 12/26/17 08:20 Lantus ([facility]) SC 15 u BIDCM [facility] Administration Insulin Human Lispro 10 unit 12/26/17 07:45 12/26/17 13:57 Humalog Kwikpen ([facility]) SC 10 units TIDCM [facility] Administration Ipratropium [place] 2 spray 12/23/17 18:00 12/26/17 08:08 Atrovent Nasal [place] (G) NASAL 2 spray BID [facility] Administration Lisinopril 20 mg 12/24/17 06:00 12/26/17 11:47 Zestril PO 20 mg DAILY [facility] Administration Loratadine 10 mg 12/24/17 06:00 12/26/17 11:39 Claritin PO 10 mg DAILY [facility] Administration Metformin HCl 1,000 mg 12/23/17 22:00 12/25/17 20:52 Glucophage PO 1,000 mg QHS [facility] Administration Metformin HCl 500 mg 12/24/17 08:00 12/26/17 08:19 Glucophage PO 500 mg BREAKFAST [facility] Administration Nutritional Formula (Lactose Free) 120 ml 12/24/17 17:00 12/26/17 11:40 Glucerna Shake PO Not Given 4X/DAY [facility] Nystatin 1 applic 12/24/17 06:00 12/26/17 08:18 Mycostatin Powder TOPICAL 1 applicatio BID [facility] Administration Protocol Oxycodone HCl 10 mg 12/26/17 11:42 Oxyir PO Q6H PRN PRN PAIN Pantoprazole Sodium 40 mg 12/24/17 06:00 12/26/17 11:40 Protonix PO 40 mg DAILY AMIE Administration Polyethylene Glycol 17 gm 12/24/17 06:00 12/26/17 08:17 Miralax PO 17 gm DAILY AMIE Administration Polysaccharide Iron Complex 150 mg 12/24/17 08:00 12/26/17 11:41 Ferrex 150 PO 150 mg DAILYCM AMIE Administration Potassium Chloride 40 meq 12/26/17 08:00 12/26/17 11:57 K-Dur PO 40 meq DAILYCM [facility] Administration Senna/Docusate Sodium 2 tablet 12/23/17 18:00 12/26/17 08:19 Senokot-S, Sarah-Colace PO 2 tablet BID AMIE Administration Tizanidine HCl 2 mg 12/24/17 21:20 12/25/17 18:15 Zanaflex PO 2 mg TID PRN PRN Administration MUSCLE SPASM Trazodone HCl 50 mg 12/23/17 22:00 12/25/17 20:51 Desyrel PO 50 mg QHS [facility] Administration Tuberculin PPD 5 tu 12/31/17 10:00 Tubersol, Aplisol, Ppd ID 12/31/17 10:01 X1 ONE Warfarin Sodium 7.5 mg 12/27/17 17:00 Coumadin (Pbkc) PO TuWeTh@1700 [facility] Protocol Warfarin Sodium 10 mg 12/24/17 17:00 12/25/17 17:52 Coumadin (Pbkc) PO 10 mg SuMoFrSa@1700 AMIE Administration Problem List (Last Reviewed 12/04/17 @ 01:53 by Sanjay Rhodes MD) Wound abscess (Acute) Squamous cell carcinoma, face (Acute) Edema (Chronic) Atrial fibrillation (Chronic) Sleep apnea (Chronic) GERD (gastroesophageal reflux disease) (Chronic) Insomnia (Chronic) Neuropathic pain (Chronic) Vital Signs Temp Pulse Resp BP Pulse Ox 96.8 F L 84 16 129/66 H 96 12/26/17 08:06 12/26/17 08:06 12/26/17 08:06 12/26/17 08:06 12/26/17 08:06 Oxygen Flow Rate (L/min) 97 Oxygen Delivery Method Room Air Weight: 107.683 kg Body Mass Index (BMI) 42.0 Finger Stick Blood Glucose 117 Sodium 141 mmol/L (136-145) 12/26/17 05:45 Potassium 4.0 mmol/L (3.5-5.1) 12/26/17 05:45 Chloride 100 mmol/L (98-107) 12/26/17 05:45 Carbon Dioxide 34.0 mmol/L (21.0-32.0) H 12/26/17 05:45 Anion Gap 7 (5-15) 12/26/17 05:45 BUN 19 mg/dL (7-18) H 12/26/17 05:45 Creatinine 1.13 mg/dL (0.55-1.02) H 12/26/17 05:45 Est GFR (MDRD) Af Amer 61 mL/min (>60) 12/26/17 05:45 Est GFR (MDRD) Non-Af 51 mL/min (>60) L 12/26/17 05:45 BUN/Creatinine Ratio 16.8 RATIO (10-20) 12/26/17 05:45 Glucose 120 mg/dL (74-106) H 12/26/17 05:45 Assessment/Plan: * 1) Pain APAP for mild pain, tizanidine for spasm, oxycodone for pain, gabapentin, diazepam for spasm. Continue to monitor prn medication use, daily pain scores. * Duplicate instructions for APAP and oxycodone. Please clarify. * Duplicate instructions for tizanidine and diazepam. Please clarify. 2) HTN/AFib/CAD/CHF Amlodipine, ASA, atorvastatin, carvedilol, flecainide, furosemide/KCL, lisinopril, warfarin for INR 2.0-3.0. Continue to monitor BP/HR, renal function, electrolytes, lipids, s/s bleeding. 3) Pulm Albuterol prn, ipratropium, loratadine, guaifenesin. Continue to monitor prn medication use, for shortness of breath. 4) Nutrition Ca, B12, FA, Glucerna, Fe. Continue to monitor clinically. 5) GI Pantoprazole daily. Continue to monitor s/s GI distress. 6) DM2 Metformin twice daily, insulin glargine twice daily, lispro with meals. Continue to monitor renal function, BGT. Psychotropic Medications: 7) Insomnia Trazodone at HS. Continue to monitor for insomnia. Unnecessary Medications: None Bowel Regimen: 8) Senna/s, PEG, prn bisacodyl. Continue to monitor prn medication use, for constipation/diarrhea. Date of Note:: 12/26/17 - Provider Comments Provider responsibility: Provider responsible to enter orders to implement recommendations <Toñito Padilla Chi - Last Filed: 12/26/17 17:39> Progress Note - Pharmacy Subjective: [] Objective: Allergies ampicillin Allergy (Severe, Verified 12/18/17 19:41) Anaphylaxis hydrocodone bitartrate [From Vicodin] Allergy (Severe, Verified 12/18/17 19:41) Itching Penicillins Allergy (Severe, Verified 12/18/17 19:41) Anaphylaxis clarithromycin [From Biaxin] Allergy (Verified 12/18/17 19:41) Rash Red and itchy venom-honey bee [bee venom (honey bee)] Allergy (Verified 12/18/17 19:41) Nausea/Vom/Diarrhea Current Medications Generic Name Dose Route Start Last Admin Trade Name Freq PRN Reason Stop Dose Admin Acetaminophen 1,000 mg 12/23/17 15:48 12/26/17 11:57 Tylenol PO 1,000 mg Q8H PRN PRN Administration MILD PAIN (1-3/10) Albuterol Sulfate 2 puff 12/23/17 14:47 12/23/17 17:41 Ventolin Hfa (Sp) INHALATION 2 puff Q4H PRN PRN Administration SOB wheezing Amlodipine Besylate 5 mg 12/24/17 06:00 12/26/17 11:47 Norvasc PO 5 mg DAILY AMIE Administration Aspirin 81 mg 12/24/17 08:00 12/26/17 11:41 Aspirin, Baby PO 81 mg DAILY@0800 [facility] Administration Atorvastatin Calcium 20 mg 12/23/17 22:00 12/25/17 20:54 Lipitor PO 20 mg QHS AMIE Administration Bisacodyl 10 mg 12/23/17 15:01 Dulcolax PO DAILY PRN Constipation Calamine/Phenol 1 applic 12/25/17 06:00 12/26/17 06:00 Calmoseptine Ointment TOPICAL 1 applicatio BID AMIE Administration Protocol Calcium Carbonate 500 mg 12/23/17 17:00 12/26/17 11:44 Os-Kirill 500 PO 500 mg BIDCM [facility]IE Administration Carvedilol 6.25 mg 12/23/17 18:00 12/26/17 08:16 Coreg PO 6.25 mg BID AMIE Administration Cyanocobalamin 2,000 mcg 12/24/17 06:00 12/26/17 11:40 Vitamin B12 PO 2,000 mcg DAILY AMIE Administration Diazepam 10 mg 12/24/17 21:20 Valium PO TID PRN PRN MUSCLE SPASM Flecainide Acetate 150 mg 12/23/17 18:00 12/26/17 08:16 Tambocor PO 150 mg Q12 AMIE Administration Folic Acid 1 mg 12/24/17 08:00 12/26/17 11:42 Folic Acid PO 1 mg DAILY@0800 [facility] Administration Furosemide 60 mg 12/23/17 22:00 12/26/17 14:02 Lasix PO 60 mg TID AMIE Administration Gabapentin 600 mg 12/23/17 17:45 12/26/17 14:02 Neurontin PO 600 mg TIDCM [facility]IE Administration Guaifenesin 600 mg 12/26/17 18:00 Mucinex PO BID [facility] Insulin Glargine 15 units 12/26/17 08:00 12/26/17 08:20 Lantus ([facility]) SC 15 u BIDCM [facility] Administration Insulin Human Lispro 10 unit 12/26/17 07:45 12/26/17 13:57 Humalog Kwikpen ([facility]) SC 10 units TIDCM [facility] Administration Ipratropium [place] 2 spray 12/23/17 18:00 12/26/17 08:08 Atrovent Nasal [place] (G) NASAL 2 spray BID [facility] Administration Lisinopril 20 mg 12/24/17 06:00 12/26/17 11:47 Zestril PO 20 mg DAILY [facility] Administration Loratadine 10 mg 12/24/17 06:00 12/26/17 11:39 Claritin PO 10 mg DAILY [facility] Administration Metformin HCl 1,000 mg 12/23/17 22:00 12/25/17 20:52 Glucophage PO 1,000 mg QHS [facility] Administration Metformin HCl 500 mg 12/24/17 08:00 12/26/17 08:19 Glucophage PO 500 mg BREAKFAST [facility]IE Administration Nutritional Formula (Lactose Free) 120 ml 12/24/17 17:00 12/26/17 11:40 Glucerna Shake PO Not Given 4X/DAY [facility] Nystatin 1 applic 12/24/17 06:00 12/26/17 16:46 Mycostatin Powder TOPICAL 1 applicatio BID AMIE Administration Protocol Oxycodone HCl 10 mg 12/26/17 11:42 12/26/17 16:44 Oxyir PO 10 mg Q6H PRN PRN Administration PAIN Pantoprazole Sodium 40 mg 12/24/17 06:00 12/26/17 11:40 Protonix PO 40 mg DAILY AMIE Administration Polyethylene Glycol 17 gm 12/24/17 06:00 12/26/17 08:17 Miralax PO 17 gm DAILY [facility]IE Administration Polysaccharide Iron Complex 150 mg 12/24/17 08:00 12/26/17 11:41 Ferrex 150 PO 150 mg DAILYCM [facility]IE Administration Potassium Chloride 40 meq 12/26/17 08:00 12/26/17 11:57 K-Dur PO 40 meq DAILYCM [facility] Administration Senna/Docusate Sodium 2 tablet 12/23/17 18:00 12/26/17 08:19 Senokot-S, Sarah-Colace PO 2 tablet BID AMIE Administration Tizanidine HCl 2 mg 12/24/17 21:20 12/25/17 18:15 Zanaflex PO 2 mg TID PRN PRN Administration MUSCLE SPASM Trazodone HCl 50 mg 12/23/17 22:00 12/25/17 20:51 Desyrel PO 50 mg QHS AMIE Administration Tuberculin PPD 5 tu 12/31/17 10:00 Tubersol, Aplisol, Ppd ID 12/31/17 10:01 X1 ONE Warfarin Sodium 7.5 mg 12/26/17 17:45 Coumadin (Pbkc) PO DAILY [facility] Protocol Problem List (Last Reviewed 12/04/17 @ 01:53 by Sanjay Rhodes MD) Wound abscess (Acute) Squamous cell carcinoma, face (Acute) Edema (Chronic) Atrial fibrillation (Chronic) Sleep apnea (Chronic) GERD (gastroesophageal reflux disease) (Chronic) Insomnia (Chronic) Neuropathic pain (Chronic) Vital Signs Temp Pulse Resp BP Pulse Ox 97.3 F L 78 14 128/83 H 100 12/26/17 15:15 12/26/17 15:15 12/26/17 15:15 12/26/17 15:15 12/26/17 15:15 Oxygen Flow Rate (L/min) 97 Oxygen Delivery Method Room Air Weight: 107.683 kg Body Mass Index (BMI) 42.0 Finger Stick Blood Glucose 117 Sodium 141 mmol/L (136-145) 12/26/17 05:45 Potassium 4.0 mmol/L (3.5-5.1) 12/26/17 05:45 Chloride 100 mmol/L (98-107) 12/26/17 05:45 Carbon Dioxide 34.0 mmol/L (21.0-32.0) H 12/26/17 05:45 Anion Gap 7 (5-15) 12/26/17 05:45 BUN 19 mg/dL (7-18) H 12/26/17 05:45 Creatinine 1.13 mg/dL (0.55-1.02) H 12/26/17 05:45 Est GFR (MDRD) Af Amer 61 mL/min (>60) 12/26/17 05:45 Est GFR (MDRD) Non-Af 51 mL/min (>60) L 12/26/17 05:45 BUN/Creatinine Ratio 16.8 RATIO (10-20) 12/26/17 05:45 Glucose 120 mg/dL (74-106) H 12/26/17 05:45 Assessment/Plan: Psychotropic Medications: Unnecessary Medications: Bowel Regimen: - Provider Comments Provider responsibility: Provider responsible to enter orders to implement recommendations Provider Comments to Recommendations by Pharmacy: Agree
--- NOTE | 2017-12-26 15:01 | PHA.CONS_ITS ---
<Uvaldo Amezcua Robbie - Last Filed: 12/26/17 14:50> Progress Note - Pharmacy Subjective: TCU Admission Objective: Allergies ampicillin Allergy (Severe, Verified 12/18/17 19:41) Anaphylaxis hydrocodone bitartrate [From Vicodin] Allergy (Severe, Verified 12/18/17 19:41) Itching Penicillins Allergy (Severe, Verified 12/18/17 19:41) Anaphylaxis clarithromycin [From Biaxin] Allergy (Verified 12/18/17 19:41) Rash Red and itchy venom-honey bee [bee venom (honey bee)] Allergy (Verified 12/18/17 19:41) Nausea/Vom/Diarrhea Current Medications Generic Name Dose Route Start Last Admin Trade Name Freq PRN Reason Stop Dose Admin Acetaminophen 1,000 mg 12/23/17 15:48 12/26/17 11:57 Tylenol PO 1,000 mg Q8H PRN PRN Administration MILD PAIN (1-3/10) Albuterol Sulfate 2 puff 12/23/17 14:47 12/23/17 17:41 Ventolin Hfa (Sp) INHALATION 2 puff Q4H PRN PRN Administration SOB wheezing Amlodipine Besylate 5 mg 12/24/17 06:00 12/26/17 11:47 Norvasc PO 5 mg DAILY AMIE Administration Aspirin 81 mg 12/24/17 08:00 12/26/17 11:41 Aspirin, Baby PO 81 mg DAILY@0800 AMIE Administration Atorvastatin Calcium 20 mg 12/23/17 22:00 12/25/17 20:54 Lipitor PO 20 mg QHS AMIE Administration Bisacodyl 10 mg 12/23/17 15:01 Dulcolax PO DAILY PRN Constipation Calamine/Phenol 1 applic 12/25/17 06:00 12/26/17 06:00 Calmoseptine Ointment TOPICAL 1 applicatio BID AMIE Administration Protocol Calcium Carbonate 500 mg 12/23/17 17:00 12/26/17 11:44 Os-Kirill 500 PO 500 mg BIDCM AMIE Administration Carvedilol 6.25 mg 12/23/17 18:00 12/26/17 08:16 Coreg PO 6.25 mg BID AMIE Administration Cyanocobalamin 2,000 mcg 12/24/17 06:00 12/26/17 11:40 Vitamin B12 PO 2,000 mcg DAILY AMIE Administration Diazepam 10 mg 12/24/17 21:20 Valium PO TID PRN PRN MUSCLE SPASM Flecainide Acetate 150 mg 12/23/17 18:00 12/26/17 08:16 Tambocor PO 150 mg Q12 AMIE Administration Folic Acid 1 mg 12/24/17 08:00 12/26/17 11:42 Folic Acid PO 1 mg DAILY@0800 [facility] Administration Furosemide 60 mg 12/23/17 22:00 12/26/17 14:02 Lasix PO 60 mg TID AMIE Administration Gabapentin 600 mg 12/23/17 17:45 12/26/17 14:02 Neurontin PO 600 mg TIDCM [facility] Administration Guaifenesin 600 mg 12/26/17 18:00 Mucinex PO BID [facility] Insulin Glargine 15 units 12/26/17 08:00 12/26/17 08:20 Lantus ([facility]) SC 15 u BIDCM [facility] Administration Insulin Human Lispro 10 unit 12/26/17 07:45 12/26/17 13:57 Humalog Kwikpen ([facility]) SC 10 units TIDCM [facility] Administration Ipratropium [place] 2 spray 12/23/17 18:00 12/26/17 08:08 Atrovent Nasal Marissa (G) NASAL 2 spray BID [facility] Administration Lisinopril 20 mg 12/24/17 06:00 12/26/17 11:47 Zestril PO 20 mg DAILY [facility] Administration Loratadine 10 mg 12/24/17 06:00 12/26/17 11:39 Claritin PO 10 mg DAILY [facility] Administration Metformin HCl 1,000 mg 12/23/17 22:00 12/25/17 20:52 Glucophage PO 1,000 mg QHS [facility] Administration Metformin HCl 500 mg 12/24/17 08:00 12/26/17 08:19 Glucophage PO 500 mg BREAKFAST [facility] Administration Nutritional Formula (Lactose Free) 120 ml 12/24/17 17:00 12/26/17 11:40 Glucerna Shake PO Not Given 4X/DAY [facility] Nystatin 1 applic 12/24/17 06:00 12/26/17 08:18 Mycostatin Powder TOPICAL 1 applicatio BID [facility] Administration Protocol Oxycodone HCl 10 mg 12/26/17 11:42 Oxyir PO Q6H PRN PRN PAIN Pantoprazole Sodium 40 mg 12/24/17 06:00 12/26/17 11:40 Protonix PO 40 mg DAILY AMIE Administration Polyethylene Glycol 17 gm 12/24/17 06:00 12/26/17 08:17 Miralax PO 17 gm DAILY AMIE Administration Polysaccharide Iron Complex 150 mg 12/24/17 08:00 12/26/17 11:41 Ferrex 150 PO 150 mg DAILYCM AMIE Administration Potassium Chloride 40 meq 12/26/17 08:00 12/26/17 11:57 K-Dur PO 40 meq DAILYCM [facility] Administration Senna/Docusate Sodium 2 tablet 12/23/17 18:00 12/26/17 08:19 Senokot-S, Sarah-Colace PO 2 tablet BID AMIE Administration Tizanidine HCl 2 mg 12/24/17 21:20 12/25/17 18:15 Zanaflex PO 2 mg TID PRN PRN Administration MUSCLE SPASM Trazodone HCl 50 mg 12/23/17 22:00 12/25/17 20:51 Desyrel PO 50 mg QHS [facility] Administration Tuberculin PPD 5 tu 12/31/17 10:00 Tubersol, Aplisol, Ppd ID 12/31/17 10:01 X1 ONE Warfarin Sodium 7.5 mg 12/27/17 17:00 Coumadin (Pbkc) PO TuWeTh@1700 [facility] Protocol Warfarin Sodium 10 mg 12/24/17 17:00 12/25/17 17:52 Coumadin (Pbkc) PO 10 mg SuMoFrSa@1700 AMIE Administration Problem List (Last Reviewed 12/04/17 @ 01:53 by Sanjay Rhodes MD) Wound abscess (Acute) Squamous cell carcinoma, face (Acute) Edema (Chronic) Atrial fibrillation (Chronic) Sleep apnea (Chronic) GERD (gastroesophageal reflux disease) (Chronic) Insomnia (Chronic) Neuropathic pain (Chronic) Vital Signs Temp Pulse Resp BP Pulse Ox 96.8 F L 84 16 129/66 H 96 12/26/17 08:06 12/26/17 08:06 12/26/17 08:06 12/26/17 08:06 12/26/17 08:06 Oxygen Flow Rate (L/min) 97 Oxygen Delivery Method Room Air Weight: 107.683 kg Body Mass Index (BMI) 42.0 Finger Stick Blood Glucose 117 Sodium 141 mmol/L (136-145) 12/26/17 05:45 Potassium 4.0 mmol/L (3.5-5.1) 12/26/17 05:45 Chloride 100 mmol/L (98-107) 12/26/17 05:45 Carbon Dioxide 34.0 mmol/L (21.0-32.0) H 12/26/17 05:45 Anion Gap 7 (5-15) 12/26/17 05:45 BUN 19 mg/dL (7-18) H 12/26/17 05:45 Creatinine 1.13 mg/dL (0.55-1.02) H 12/26/17 05:45 Est GFR (MDRD) Af Amer 61 mL/min (>60) 12/26/17 05:45 Est GFR (MDRD) Non-Af 51 mL/min (>60) L 12/26/17 05:45 BUN/Creatinine Ratio 16.8 RATIO (10-20) 12/26/17 05:45 Glucose 120 mg/dL (74-106) H 12/26/17 05:45 Assessment/Plan: * 1) Pain APAP for mild pain, tizanidine for spasm, oxycodone for pain, gabapentin, diazepam for spasm. Continue to monitor prn medication use, daily pain scores. * Duplicate instructions for APAP and oxycodone. Please clarify. * Duplicate instructions for tizanidine and diazepam. Please clarify. 2) HTN/AFib/CAD/CHF Amlodipine, ASA, atorvastatin, carvedilol, flecainide, furosemide/KCL, lisinopril, warfarin for INR 2.0-3.0. Continue to monitor BP/HR, renal function, electrolytes, lipids, s/s bleeding. 3) Pulm Albuterol prn, ipratropium, loratadine, guaifenesin. Continue to monitor prn medication use, for shortness of breath. 4) Nutrition Ca, B12, FA, Glucerna, Fe. Continue to monitor clinically. 5) GI Pantoprazole daily. Continue to monitor s/s GI distress. 6) DM2 Metformin twice daily, insulin glargine twice daily, lispro with meals. Continue to monitor renal function, BGT. Psychotropic Medications: 7) Insomnia Trazodone at HS. Continue to monitor for insomnia. Unnecessary Medications: None Bowel Regimen: 8) Senna/s, PEG, prn bisacodyl. Continue to monitor prn medication use, for constipation/diarrhea. Date of Note:: 12/26/17 - Provider Comments Provider responsibility: Provider responsible to enter orders to implement recommendations <Toñito Padilla Chi - Last Filed: 12/26/17 17:39> Progress Note - Pharmacy Subjective: [] Objective: Allergies ampicillin Allergy (Severe, Verified 12/18/17 19:41) Anaphylaxis hydrocodone bitartrate [From Vicodin] Allergy (Severe, Verified 12/18/17 19:41) Itching Penicillins Allergy (Severe, Verified 12/18/17 19:41) Anaphylaxis clarithromycin [From Biaxin] Allergy (Verified 12/18/17 19:41) Rash Red and itchy venom-honey bee [bee venom (honey bee)] Allergy (Verified 12/18/17 19:41) Nausea/Vom/Diarrhea Current Medications Generic Name Dose Route Start Last Admin Trade Name Freq PRN Reason Stop Dose Admin Acetaminophen 1,000 mg 12/23/17 15:48 12/26/17 11:57 Tylenol PO 1,000 mg Q8H PRN PRN Administration MILD PAIN (1-3/10) Albuterol Sulfate 2 puff 12/23/17 14:47 12/23/17 17:41 Ventolin Hfa (Sp) INHALATION 2 puff Q4H PRN PRN Administration SOB wheezing Amlodipine Besylate 5 mg 12/24/17 06:00 12/26/17 11:47 Norvasc PO 5 mg DAILY AMIE Administration Aspirin 81 mg 12/24/17 08:00 12/26/17 11:41 Aspirin, Baby PO 81 mg DAILY@0800 AMIE Administration Atorvastatin Calcium 20 mg 12/23/17 22:00 12/25/17 20:54 Lipitor PO 20 mg QHS AMIE Administration Bisacodyl 10 mg 12/23/17 15:01 Dulcolax PO DAILY PRN Constipation Calamine/Phenol 1 applic 12/25/17 06:00 12/26/17 06:00 Calmoseptine Ointment TOPICAL 1 applicatio BID AMIE Administration Protocol Calcium Carbonate 500 mg 12/23/17 17:00 12/26/17 11:44 Os-Kirill 500 PO 500 mg BIDCM [facility]IE Administration Carvedilol 6.25 mg 12/23/17 18:00 12/26/17 08:16 Coreg PO 6.25 mg BID AMIE Administration Cyanocobalamin 2,000 mcg 12/24/17 06:00 12/26/17 11:40 Vitamin B12 PO 2,000 mcg DAILY AMIE Administration Diazepam 10 mg 12/24/17 21:20 Valium PO TID PRN PRN MUSCLE SPASM Flecainide Acetate 150 mg 12/23/17 18:00 12/26/17 08:16 Tambocor PO 150 mg Q12 AMIE Administration Folic Acid 1 mg 12/24/17 08:00 12/26/17 11:42 Folic Acid PO 1 mg DAILY@0800 [facility] Administration Furosemide 60 mg 12/23/17 22:00 12/26/17 14:02 Lasix PO 60 mg TID AMIE Administration Gabapentin 600 mg 12/23/17 17:45 12/26/17 14:02 Neurontin PO 600 mg TIDCM [facility]IE Administration Guaifenesin 600 mg 12/26/17 18:00 Mucinex PO BID [facility] Insulin Glargine 15 units 12/26/17 08:00 12/26/17 08:20 Lantus ([facility]) SC 15 u BIDCM [facility] Administration Insulin Human Lispro 10 unit 12/26/17 07:45 12/26/17 13:57 Humalog Kwikpen ([facility]) SC 10 units TIDCM [facility] Administration Ipratropium [place] 2 spray 12/23/17 18:00 12/26/17 08:08 Atrovent Nasal Marissa (G) NASAL 2 spray BID [facility] Administration Lisinopril 20 mg 12/24/17 06:00 12/26/17 11:47 Zestril PO 20 mg DAILY [facility] Administration Loratadine 10 mg 12/24/17 06:00 12/26/17 11:39 Claritin PO 10 mg DAILY [facility] Administration Metformin HCl 1,000 mg 12/23/17 22:00 12/25/17 20:52 Glucophage PO 1,000 mg QHS [facility]IE Administration Metformin HCl 500 mg 12/24/17 08:00 12/26/17 08:19 Glucophage PO 500 mg BREAKFAST AMIE Administration Nutritional Formula (Lactose Free) 120 ml 12/24/17 17:00 12/26/17 11:40 Glucerna Shake PO Not Given 4X/DAY [facility] Nystatin 1 applic 12/24/17 06:00 12/26/17 16:46 Mycostatin Powder TOPICAL 1 applicatio BID AMIE Administration Protocol Oxycodone HCl 10 mg 12/26/17 11:42 12/26/17 16:44 Oxyir PO 10 mg Q6H PRN PRN Administration PAIN Pantoprazole Sodium 40 mg 12/24/17 06:00 12/26/17 11:40 Protonix PO 40 mg DAILY AMIE Administration Polyethylene Glycol 17 gm 12/24/17 06:00 12/26/17 08:17 Miralax PO 17 gm DAILY AMIE Administration Polysaccharide Iron Complex 150 mg 12/24/17 08:00 12/26/17 11:41 Ferrex 150 PO 150 mg DAILYCM AMIE Administration Potassium Chloride 40 meq 12/26/17 08:00 12/26/17 11:57 K-Dur PO 40 meq DAILYCM [facility] Administration Senna/Docusate Sodium 2 tablet 12/23/17 18:00 12/26/17 08:19 Senokot-S, Sarah-Colace PO 2 tablet BID AMIE Administration Tizanidine HCl 2 mg 12/24/17 21:20 12/25/17 18:15 Zanaflex PO 2 mg TID PRN PRN Administration MUSCLE SPASM Trazodone HCl 50 mg 12/23/17 22:00 12/25/17 20:51 Desyrel PO 50 mg QHS AMIE Administration Tuberculin PPD 5 tu 12/31/17 10:00 Tubersol, Aplisol, Ppd ID 12/31/17 10:01 X1 ONE Warfarin Sodium 7.5 mg 12/26/17 17:45 Coumadin (Pbkc) PO DAILY [facility] Protocol Problem List (Last Reviewed 12/04/17 @ 01:53 by Sanjay Rhodes MD) Wound abscess (Acute) Squamous cell carcinoma, face (Acute) Edema (Chronic) Atrial fibrillation (Chronic) Sleep apnea (Chronic) GERD (gastroesophageal reflux disease) (Chronic) Insomnia (Chronic) Neuropathic pain (Chronic) Vital Signs Temp Pulse Resp BP Pulse Ox 97.3 F L 78 14 128/83 H 100 12/26/17 15:15 12/26/17 15:15 12/26/17 15:15 12/26/17 15:15 12/26/17 15:15 Oxygen Flow Rate (L/min) 97 Oxygen Delivery Method Room Air Weight: 107.683 kg Body Mass Index (BMI) 42.0 Finger Stick Blood Glucose 117 Sodium 141 mmol/L (136-145) 12/26/17 05:45 Potassium 4.0 mmol/L (3.5-5.1) 12/26/17 05:45 Chloride 100 mmol/L (98-107) 12/26/17 05:45 Carbon Dioxide 34.0 mmol/L (21.0-32.0) H 12/26/17 05:45 Anion Gap 7 (5-15) 12/26/17 05:45 BUN 19 mg/dL (7-18) H 12/26/17 05:45 Creatinine 1.13 mg/dL (0.55-1.02) H 12/26/17 05:45 Est GFR (MDRD) Af Amer 61 mL/min (>60) 12/26/17 05:45 Est GFR (MDRD) Non-Af 51 mL/min (>60) L 12/26/17 05:45 BUN/Creatinine Ratio 16.8 RATIO (10-20) 12/26/17 05:45 Glucose 120 mg/dL (74-106) H 12/26/17 05:45 Assessment/Plan: Psychotropic Medications: Unnecessary Medications: Bowel Regimen: - Provider Comments Provider responsibility: Provider responsible to enter orders to implement recommendations Provider Comments to Recommendations by Pharmacy: Agree
[2017-12-26 15:15] VITALS: BP 128/83; PULSE 78; RESP 14; TEMP 36.3; O2SAT 100
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
[2017-12-26] MEDS: Magnesium Citrate 300 ML PO (16:41)
[2017-12-26 17:00] LABS: Bedside Glucose 137 mg/dL (70-110)
[2017-12-26] MEDS: guaiFENesin 600 MG Tablet PO (17:54)
[2017-12-26] MEDS: Atorvastatin Calcium 20 MG Tablet PO (21:14)
[2017-12-26] MEDS: metFORMIN HCl 1,000 MG Tablet 1000 MG PO (21:14)
[2017-12-26] MEDS: traZODone 50 MG Tablet PO (21:15)
[2017-12-26 21:21] LABS: Bedside Glucose 83 mg/dL (70-110)
[2017-12-27] MEDS: Nystatin Powder 15gm Bottle 1 APPLIC TOPICAL ×2 (06:30→17:01)
[2017-12-27] MEDS: Menthol/Lanolin/Calamine/Znox 113 GM Tube 1 APPLIC TOPICAL ×2 (06:30→17:02)
[2017-12-27 07:01] LABS: Bedside Glucose 99 mg/dL (70-110)
[2017-12-27] MEDS: oxyCODONE 5 MG Tablet 10 MG PO ×2 (09:54→15:55)
[2017-12-27] MEDS: Polyethylene Glycol 3350 17 GM PACKET PO (09:58)
[2017-12-27] MEDS: Flecainide 150 MG Tablet PO ×2 (09:58→16:59)
[2017-12-27] MEDS: Calcium (Elemental) 500 MG Tablet PO ×2 (09:58→16:56)
[2017-12-27] MEDS: Folic Acid 1 MG Tablet PO (09:58)
[2017-12-27] MEDS: amLODIPine 5 MG Tablet PO (09:58)
[2017-12-27] MEDS: Cyanocobalamin 500 MCG Tablet 2000 MCG PO (09:59)
[2017-12-27] MEDS: guaiFENesin 600 MG Tablet PO ×2 (10:00→17:00)
[2017-12-27] MEDS: Lisinopril 20 MG Tablet PO (10:00)
[2017-12-27] MEDS: Gabapentin 600 MG Tablet PO ×3 (10:00→16:58)
[2017-12-27] MEDS: Furosemide 20 MG Tablet 60 MG PO ×3 (10:00→21:38)
[2017-12-27] MEDS: Pantoprazole Sodium 40 MG Tablet PO (10:01)
[2017-12-27] MEDS: Carvedilol 6.25 MG Tablet PO ×2 (10:01→16:58)
[2017-12-27] MEDS: Senna/Docusate Sodium 1 Tablet 2 TABLET PO ×2 (10:01→16:59)
[2017-12-27] MEDS: Loratadine 10 MG Tablet PO (10:01)
[2017-12-27] MEDS: Iron Polysaccharide Complex 150 MG CAPSULE PO (10:02)
[2017-12-27] MEDS: Aspirin 81 MG TAB.CHEW PO (10:02)
[2017-12-27] MEDS: Insulin Lispro 100 UNIT/ML INSULN.PEN 10 UNIT SC ×3 (10:09→17:42)
[2017-12-27] MEDS: Glucerna Shake 120 ML LIQUID PO ×4 (10:12→21:39)
[2017-12-27] MEDS: Ipratropium Bromide 0.06% NASAL SPRAY 2 SPRAY NASAL ×2 (10:13→16:58)
[2017-12-27 10:20] LABS: Bedside Glucose 124 mg/dL (70-110)
[2017-12-27] MEDS: Acetaminophen 500 MG Tablet 1000 MG PO (12:08)
[2017-12-27 14:21] LABS: Bedside Glucose 171 mg/dL (70-110)
[2017-12-27 16:00] VITALS: BP 108/68; PULSE 72; RESP 20; TEMP 36.4; O2SAT 93
--- NOTE | 2017-12-27 16:34 | CHAPLAIN ---
patient check in; pt is working on her phone and did not stop to talk much; however patient said that she needs help and did appreciate the concern shown by settlement technician
[2017-12-27 17:00] LABS: Bedside Glucose 150 mg/dL (70-110)
[2017-12-27 21:11] LABS: Bedside Glucose 146 mg/dL (70-110)
[2017-12-27] MEDS: traZODone 50 MG Tablet PO (21:39)
[2017-12-27] MEDS: Atorvastatin Calcium 20 MG Tablet PO (21:39)
[2017-12-27] MEDS: metFORMIN HCl 1,000 MG Tablet 1000 MG PO (21:39)
[2017-12-28 06:55] LABS: Bedside Glucose 109 mg/dL (70-110)
[2017-12-28] MEDS: Glucerna Shake 120 ML LIQUID PO ×3 (08:01→21:43)
[2017-12-28] MEDS: Calcium (Elemental) 500 MG Tablet PO ×2 (08:01→17:53)
[2017-12-28] MEDS: Cyanocobalamin 500 MCG Tablet 2000 MCG PO (08:01)
[2017-12-28] MEDS: Lisinopril 20 MG Tablet PO (08:01)
[2017-12-28] MEDS: Flecainide 150 MG Tablet PO ×2 (08:01→19:42)
[2017-12-28] MEDS: amLODIPine 5 MG Tablet PO (08:02)
[2017-12-28] MEDS: guaiFENesin 600 MG Tablet PO ×2 (08:02→17:58)
[2017-12-28] MEDS: Polyethylene Glycol 3350 17 GM PACKET PO (08:02)
[2017-12-28] MEDS: Pantoprazole Sodium 40 MG Tablet PO (08:02)
[2017-12-28] MEDS: Gabapentin 600 MG Tablet PO ×3 (08:03→17:55)
[2017-12-28] MEDS: Furosemide 20 MG Tablet 60 MG PO ×3 (08:03→17:55)
[2017-12-28] MEDS: Aspirin 81 MG TAB.CHEW PO (08:03)
[2017-12-28] MEDS: Carvedilol 6.25 MG Tablet PO ×2 (08:03→17:58)
[2017-12-28] MEDS: Loratadine 10 MG Tablet PO (08:03)
[2017-12-28] MEDS: Folic Acid 1 MG Tablet PO (08:03)
[2017-12-28] MEDS: Ipratropium Bromide 0.06% NASAL SPRAY 2 SPRAY NASAL ×2 (08:04→17:56)
[2017-12-28] MEDS: Iron Polysaccharide Complex 150 MG CAPSULE PO (08:04)
[2017-12-28] MEDS: Menthol/Lanolin/Calamine/Znox 113 GM Tube 1 APPLIC TOPICAL ×2 (08:05→18:02)
[2017-12-28] MEDS: Nystatin Powder 15gm Bottle 1 APPLIC TOPICAL ×2 (08:05→17:57)
[2017-12-28] MEDS: oxyCODONE 5 MG Tablet 10 MG PO ×2 (08:11→19:42)
[2017-12-28 08:23] VITALS: BP 128/93; PULSE 90; RESP 16; O2SAT 94
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
[2017-12-28 10:40] LABS: Bedside Glucose 163 mg/dL (70-110)
[2017-12-28] MEDS: Insulin Lispro 100 UNIT/ML INSULN.PEN 10 UNIT SC ×2 (10:45→17:52)
[2017-12-28] MEDS: Acetaminophen 500 MG Tablet 1000 MG PO (10:51)
[2017-12-28 13:55] LABS: Bedside Glucose 87 mg/dL (70-110)
[2017-12-28 14:21] LABS: Bedside Glucose 87 mg/dL (70-110)
[2017-12-28 16:00] VITALS: BP 112/65; PULSE 84; RESP 20; TEMP 36.8; O2SAT 93
[2017-12-28 17:06] LABS: Bedside Glucose 131 mg/dL (70-110)
[2017-12-28] MEDS: Senna/Docusate Sodium 1 Tablet 2 TABLET PO (17:57)
[2017-12-28 20:56] LABS: Bedside Glucose 159 mg/dL (70-110)
[2017-12-28] MEDS: metFORMIN HCl 1,000 MG Tablet 1000 MG PO (21:43)
[2017-12-28] MEDS: traZODone 50 MG Tablet PO (21:43)
[2017-12-28] MEDS: Atorvastatin Calcium 20 MG Tablet PO (21:43)
[2017-12-29 06:00] LABS: Prothrombin Time (Protime)PT. 31.7 SECONDS (11.7-14.9)
[2017-12-29 07:11] LABS: Bedside Glucose 87 mg/dL (70-110)
[2017-12-29 09:41] LABS: Bedside Glucose 108 mg/dL (70-110)
[2017-12-29] MEDS: Cyanocobalamin 500 MCG Tablet 2000 MCG PO (09:58)
[2017-12-29] MEDS: Flecainide 150 MG Tablet PO ×2 (09:58→21:20)
[2017-12-29] MEDS: Senna/Docusate Sodium 1 Tablet 2 TABLET PO ×2 (09:58→17:11)
[2017-12-29] MEDS: Lisinopril 20 MG Tablet PO (09:58)
[2017-12-29] MEDS: Calcium (Elemental) 500 MG Tablet PO ×2 (09:58→17:09)
[2017-12-29] MEDS: amLODIPine 5 MG Tablet PO (09:59)
[2017-12-29] MEDS: Carvedilol 6.25 MG Tablet PO ×2 (09:59→17:10)
[2017-12-29] MEDS: Loratadine 10 MG Tablet PO (09:59)
[2017-12-29] MEDS: Folic Acid 1 MG Tablet PO (09:59)
[2017-12-29] MEDS: Pantoprazole Sodium 40 MG Tablet PO (09:59)
[2017-12-29] MEDS: guaiFENesin 600 MG Tablet PO ×2 (09:59→17:10)
[2017-12-29] MEDS: Furosemide 20 MG Tablet 60 MG PO ×3 (10:00→17:09)
[2017-12-29] MEDS: Gabapentin 600 MG Tablet PO ×3 (10:00→17:10)
[2017-12-29] MEDS: Iron Polysaccharide Complex 150 MG CAPSULE PO (10:00)
[2017-12-29] MEDS: Aspirin 81 MG TAB.CHEW PO (10:00)
[2017-12-29] MEDS: Ipratropium Bromide 0.06% NASAL SPRAY 2 SPRAY NASAL ×2 (10:00→17:11)
[2017-12-29] MEDS: Menthol/Lanolin/Calamine/Znox 113 GM Tube 1 APPLIC TOPICAL ×2 (10:03→17:16)
[2017-12-29] MEDS: oxyCODONE 5 MG Tablet 10 MG PO ×2 (10:08→21:32)
[2017-12-29 11:01] LABS: Bedside Glucose 213 mg/dL (70-110)
[2017-12-29] MEDS: Glucerna Shake 120 ML LIQUID PO ×3 (11:59→21:20)
[2017-12-29] MEDS: Insulin Lispro 100 UNIT/ML INSULN.PEN 10 UNIT SC (12:00)
[2017-12-29] MEDS: Nystatin Powder 15gm Bottle 1 APPLIC TOPICAL ×2 (12:02→17:12)
[2017-12-29 12:35] LABS: Bedside Glucose 168 mg/dL (70-110)
--- NOTE | 2017-12-29 13:44 | CASEMGMT ---
Insurance Clinical information sent. Pending continued stay approval at this time. Auth#[id number] Ritika WEINBERG, ORACLE REPORTS DEVELOPER
--- NOTE | 2017-12-29 14:09 | MDS.RN ---
Pain interview for loyda 12/30/17 completed.
--- NOTE | 2017-12-29 15:25 | CASEMGMT ---
Brief interview for mental status (BIMS) and resident mood interview (PHQ-9) completed on this day. BIMS score 15. PHQ-9 score 05/17
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
[2017-12-29 15:42] VITALS: BP 116/58; PULSE 87; RESP 16; TEMP 36; O2SAT 92
[2017-12-29 17:15] LABS: Bedside Glucose 60 mg/dL (70-110)
[2017-12-29 17:56] LABS: Bedside Glucose 82 mg/dL (70-110)
[2017-12-29 20:56] LABS: Bedside Glucose 114 mg/dL (70-110)
[2017-12-29] MEDS: metFORMIN HCl 1,000 MG Tablet 1000 MG PO (21:20)
[2017-12-29] MEDS: traZODone 50 MG Tablet PO (21:20)
[2017-12-29] MEDS: Atorvastatin Calcium 20 MG Tablet PO (21:20)
[2017-12-30] MEDS: Glucerna Shake 120 ML LIQUID PO ×4 (06:35→22:02)
[2017-12-30] MEDS: Acetaminophen 500 MG Tablet 1000 MG PO (06:39)
[2017-12-30 06:50] LABS: Bedside Glucose 81 mg/dL (70-110)
[2017-12-30] MEDS: Loratadine 10 MG Tablet PO (08:03)
[2017-12-30] MEDS: Flecainide 150 MG Tablet PO ×2 (08:03→20:07)
[2017-12-30] MEDS: Gabapentin 600 MG Tablet PO ×3 (08:03→17:27)
[2017-12-30] MEDS: Aspirin 81 MG TAB.CHEW PO (08:03)
[2017-12-30] MEDS: amLODIPine 5 MG Tablet PO (08:03)
[2017-12-30] MEDS: Pantoprazole Sodium 40 MG Tablet PO (08:03)
[2017-12-30] MEDS: Furosemide 20 MG Tablet 60 MG PO ×3 (08:04→17:26)
[2017-12-30] MEDS: Menthol/Lanolin/Calamine/Znox 113 GM Tube 1 APPLIC TOPICAL ×2 (08:06→15:45)
[2017-12-30] MEDS: Carvedilol 6.25 MG Tablet PO ×2 (08:06→17:26)
[2017-12-30] MEDS: Ipratropium Bromide 0.06% NASAL SPRAY 2 SPRAY NASAL ×2 (10:27→17:28)
[2017-12-30] MEDS: Iron Polysaccharide Complex 150 MG CAPSULE PO (10:29)
[2017-12-30] MEDS: Folic Acid 1 MG Tablet PO (10:29)
[2017-12-30] MEDS: Polyethylene Glycol 3350 17 GM PACKET PO (10:29)
[2017-12-30] MEDS: Calcium (Elemental) 500 MG Tablet PO ×2 (10:30→17:26)
[2017-12-30] MEDS: guaiFENesin 600 MG Tablet PO ×2 (10:30→17:27)
[2017-12-30] MEDS: Cyanocobalamin 500 MCG Tablet 2000 MCG PO (10:31)
[2017-12-30] MEDS: Lisinopril 20 MG Tablet PO (10:31)
[2017-12-30] MEDS: Senna/Docusate Sodium 1 Tablet 2 TABLET PO ×2 (10:31→17:28)
[2017-12-30] MEDS: Nystatin Powder 15gm Bottle 1 APPLIC TOPICAL ×2 (10:32→17:30)
[2017-12-30] MEDS: oxyCODONE 5 MG Tablet 10 MG PO ×2 (12:00→20:06)
--- NOTE | 2017-12-30 14:35 | CASEMGMT ---
Insurance Continued stay approved with next update due on 01/05/18. Auth#[id number] Ritika WEINBERG, GENERAL WAREHOUSE WORKER
[2017-12-30 15:36] VITALS: BP 107/59; PULSE 74; RESP 16; TEMP 36.1; O2SAT 95
[2017-12-30 17:00] LABS: Absolute Lymphocyte Count 1.24 X10^3/ul (0.83-4.51); Absolute Neutrophil Count 6.3 X10^3/uL (2.0-7.7); Basophil# 0.04 X10^3/uL; Basophil% 0.5 % (0-1); Eosinophil# 0.19 X10^3/uL; Eosinophils% 2.3 % (0-5); Lymphocyte # 1.24 X10^3/ul (4.0); Lymphocyte % 14.9 % (19-41); Mean Corp Hgb Conc 30.6 g/gl (32-36); Mean Corpuscular Hgb 28.2 pg (27.0-32.0); Mean Corpuscular Volume 92.3 fL (81-99); Mean Platelet Vol. 11.8 fl (6.2-12.0); Monocyte# 0.51 X10^3/uL; Monocyte% 6.1 % (0-10); Neutrophil # 6.33 X10^3/uL (2.7-7.7); Neutrophil % 76.1 % (47-70); Platelet Count 332 K/mm3 (150-450); RBC Distribution Width CV 14.4 % (11.6-14.6); RBC Distribution Width SD 46.9 fl (35.1-43.9); White Blood Count 8.3 K/mm3 (4.4-11.0)
[2017-12-30 17:00] LABS: Bedside Glucose 146 mg/dL (70-110)
[2017-12-30 17:01] LABS: POSITIVE COUNT NO; POSITIVE DIFFERENTIAL NO; POSITIVE MORPHOLOGY NO
[2017-12-30 17:13] LABS: Anion Gap 6 (5-15); BUN 25 mg/dL (7-18); BUN/Creat Ratio 17.6 RATIO (10-20); Calcium,Total 8.4 mg/dL (8.5-10.1); Chloride 96 mmol/L (98-107); Creatinine, Serum 1.42 mg/dL (0.55-1.02); EST Glomerular Filtration Rate 39 mL/min (>60); Est Glom Filt Rate - Afr Amer 47 mL/min (>60); Estimated Creatinine Clearance 30.93 ml/min; Glucose 153 mg/dL (74-106); Potassium 4.9 mmol/L (3.5-5.1); Sodium Level 134 mmol/L (136-145)
[2017-12-30 17:14] LABS: Erythrocyte Sedimentation Rate 59 mm/hr (0-30)
[2017-12-30 17:50] LABS: M R Staph aureus DNA By PCR POSITIVE (Negative)
[2017-12-30 17:51] LABS: Probe Check PASS; Staph aureus DNA By PCR POSITIVE (Negative)
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
--- NOTE | 2017-12-30 18:14 | NURSING ---
POSITIVE MRSA WOUND, DR QUINTANILLA NOTIFIED. NEW ORDER TO CONSULT I.D. ON TUESDAY, IF PT STARTS WITH FEVER, ^ SHIRIN THEN NOTIFY DR QUINTANILLA FOR FURTHER ORDERS.
[2017-12-30 21:26] LABS: Bedside Glucose 177 mg/dL (70-110)
[2017-12-30] MEDS: traZODone 50 MG Tablet PO (22:02)
[2017-12-30] MEDS: metFORMIN HCl 1,000 MG Tablet 1000 MG PO (22:02)
[2017-12-30] MEDS: Atorvastatin Calcium 20 MG Tablet PO (22:02)
--- NOTE | 2017-12-31 05:05 | NURSING ---
Pt remains in contact isolation this shift d/t MRSA in wound.
[2017-12-31] MEDS: Glucerna Shake 120 ML LIQUID PO ×4 (06:20→21:28)
[2017-12-31 07:11] LABS: Bedside Glucose 97 mg/dL (70-110)
[2017-12-31 08:06] LABS: Absolute Lymphocyte Count 1.17 X10^3/ul (0.83-4.51); Absolute Neutrophil Count 6.3 X10^3/uL (2.0-7.7); Basophil# 0.04 X10^3/uL; Basophil% 0.5 % (0-1); Eosinophil# 0.22 X10^3/uL; Eosinophils% 2.6 % (0-5); Hematocrit 37.3 % (37-47); Hemoglobin 11.2 g/dl (12.0-15.0); Lymphocyte # 1.17 X10^3/ul (4.0); Lymphocyte % 13.9 % (19-41); Mean Corpuscular Hgb 27.7 pg (27.0-32.0); Mean Corpuscular Volume 92.1 fL (81-99); Mean Platelet Vol. 11.5 fl (6.2-12.0); Monocyte# 0.65 X10^3/uL; Monocyte% 7.7 % (0-10); Neutrophil # 6.31 X10^3/uL (2.7-7.7); Neutrophil % 75.2 % (47-70); Platelet Count 284 K/mm3 (150-450); RBC Distribution Width CV 14.3 % (11.6-14.6); RBC Distribution Width SD 46.8 fl (35.1-43.9); Red Blood Count 4.05 M/mm3 (4.2-5.4); White Blood Count 8.4 K/mm3 (4.4-11.0)
[2017-12-31 08:07] LABS: POSITIVE COUNT NO; POSITIVE DIFFERENTIAL NO; POSITIVE MORPHOLOGY NO
[2017-12-31 08:26] LABS: Anion Gap 6 (5-15); BUN 24 mg/dL (7-18); BUN/Creat Ratio 18.9 RATIO (10-20); Calcium,Total 8.6 mg/dL (8.5-10.1); Chloride 97 mmol/L (98-107); Creatinine, Serum 1.27 mg/dL (0.55-1.02); EST Glomerular Filtration Rate 44 mL/min (>60); Est Glom Filt Rate - Afr Amer 54 mL/min (>60); Estimated Creatinine Clearance 34.58 ml/min; Glucose 104 mg/dL (74-106); Potassium 4.2 mmol/L (3.5-5.1); Sodium Level 137 mmol/L (136-145)
[2017-12-31] MEDS: Lisinopril 20 MG Tablet PO (09:35)
[2017-12-31] MEDS: Senna/Docusate Sodium 1 Tablet 2 TABLET PO ×2 (09:35→17:39)
[2017-12-31] MEDS: Flecainide 150 MG Tablet PO ×2 (09:36→21:27)
[2017-12-31] MEDS: Cyanocobalamin 500 MCG Tablet 2000 MCG PO (09:36)
[2017-12-31] MEDS: guaiFENesin 600 MG Tablet PO ×2 (09:36→17:39)
[2017-12-31] MEDS: Gabapentin 600 MG Tablet PO ×3 (09:37→17:38)
[2017-12-31] MEDS: Iron Polysaccharide Complex 150 MG CAPSULE PO (09:37)
[2017-12-31] MEDS: Furosemide 20 MG Tablet 60 MG PO ×3 (09:37→17:38)
[2017-12-31] MEDS: amLODIPine 5 MG Tablet PO (09:37)
[2017-12-31] MEDS: Polyethylene Glycol 3350 17 GM PACKET PO (09:37)
[2017-12-31] MEDS: Aspirin 81 MG TAB.CHEW PO (09:37)
[2017-12-31] MEDS: Calcium (Elemental) 500 MG Tablet PO ×2 (09:37→17:38)
[2017-12-31] MEDS: Pantoprazole Sodium 40 MG Tablet PO (09:37)
[2017-12-31] MEDS: Loratadine 10 MG Tablet PO (09:37)
[2017-12-31] MEDS: Carvedilol 6.25 MG Tablet PO ×2 (09:37→17:39)
[2017-12-31] MEDS: Folic Acid 1 MG Tablet PO (09:37)
[2017-12-31] MEDS: oxyCODONE 5 MG Tablet 10 MG PO (09:42)
[2017-12-31] MEDS: Menthol/Lanolin/Calamine/Znox 113 GM Tube 1 APPLIC TOPICAL ×2 (09:44→21:32)
[2017-12-31] MEDS: Nystatin Powder 15gm Bottle 1 APPLIC TOPICAL ×2 (09:44→21:25)
[2017-12-31] MEDS: Tuberculin,Purif.prot.deriv. 50 TU/ML Vial 5 ML ID (09:44)
[2017-12-31] MEDS: Ipratropium Bromide 0.06% NASAL SPRAY 2 SPRAY NASAL ×2 (09:45→17:37)
[2017-12-31 11:35] LABS: Bedside Glucose 231 mg/dL (70-110)
[2017-12-31 13:36] LABS: Bedside Glucose 204 mg/dL (70-110)
[2017-12-31] MEDS: Acetaminophen 500 MG Tablet 1000 MG PO (15:09)
[2017-12-31] MEDS: diazePAM 5 MG Tablet 10 MG PO ×2 (15:09→15:17)
[2017-12-31 16:00] VITALS: BP 90/48; PULSE 92; RESP 20; TEMP 36.4; O2SAT 91
[2017-12-31 17:06] LABS: Bedside Glucose 159 mg/dL (70-110)
[2017-12-31 18:40] LABS: International Normalized Ratio 3.2; Prothrombin Time (Protime)PT. 32.8 SECONDS (11.7-14.9)
--- NOTE | 2017-12-31 21:05 | NURSING ---
Dr. Padilla notified of patient's INR. Orders given to hold tonight's Coumadin dose.
[2017-12-31 21:16] LABS: Bedside Glucose 169 mg/dL (70-110)
[2017-12-31] MEDS: traZODone 50 MG Tablet PO (21:25)
[2017-12-31] MEDS: Atorvastatin Calcium 20 MG Tablet PO (21:25)
[2017-12-31] MEDS: metFORMIN HCl 1,000 MG Tablet 1000 MG PO (21:27)
--- NOTE | 2017-12-31 22:37 | NURSING ---
Pt remains in contact isolation this shift d/t MRSA in wound.
[2018-01-01 07:06] LABS: Bedside Glucose 130 mg/dL (70-110)
[2018-01-01] MEDS: Senna/Docusate Sodium 1 Tablet 2 TABLET PO (09:32)
[2018-01-01] MEDS: Calcium (Elemental) 500 MG Tablet PO ×2 (09:32→18:04)
[2018-01-01] MEDS: Pantoprazole Sodium 40 MG Tablet PO (09:32)
[2018-01-01] MEDS: Cyanocobalamin 500 MCG Tablet 2000 MCG PO (09:32)
[2018-01-01] MEDS: amLODIPine 5 MG Tablet PO (09:33)
[2018-01-01] MEDS: Lisinopril 20 MG Tablet PO (09:33)
[2018-01-01] MEDS: guaiFENesin 600 MG Tablet PO ×2 (09:33→18:03)
[2018-01-01] MEDS: Polyethylene Glycol 3350 17 GM PACKET PO (09:34)
[2018-01-01] MEDS: Loratadine 10 MG Tablet PO (09:34)
[2018-01-01] MEDS: Flecainide 150 MG Tablet PO ×2 (09:34→20:52)
[2018-01-01] MEDS: Folic Acid 1 MG Tablet PO (09:34)
[2018-01-01] MEDS: Carvedilol 6.25 MG Tablet PO ×2 (09:34→18:03)
[2018-01-01] MEDS: Furosemide 20 MG Tablet 60 MG PO ×3 (09:35→18:04)
[2018-01-01] MEDS: Aspirin 81 MG TAB.CHEW PO (09:35)
[2018-01-01] MEDS: Iron Polysaccharide Complex 150 MG CAPSULE PO (09:35)
[2018-01-01] MEDS: Menthol/Lanolin/Calamine/Znox 113 GM Tube 1 APPLIC TOPICAL ×2 (09:35→20:58)
[2018-01-01] MEDS: Gabapentin 600 MG Tablet PO ×3 (09:35→18:03)
[2018-01-01] MEDS: Ipratropium Bromide 0.06% NASAL SPRAY 2 SPRAY NASAL (09:35)
[2018-01-01] MEDS: Nystatin Powder 15gm Bottle 1 APPLIC TOPICAL ×2 (09:36→20:52)
[2018-01-01 11:50] LABS: Bedside Glucose 232 mg/dL (70-110)
[2018-01-01] MEDS: oxyCODONE 5 MG Tablet 10 MG PO ×2 (12:22→19:03)
[2018-01-01] MEDS: Glucerna Shake 120 ML LIQUID PO ×3 (12:23→20:52)
[2018-01-01 16:00] VITALS: BP 146/77; PULSE 96; RESP 18; TEMP 35.9; O2SAT 91
[2018-01-01 17:10] LABS: Bedside Glucose 220 mg/dL (70-110)
[2018-01-01] MEDS: metFORMIN HCl 1,000 MG Tablet 1000 MG PO (20:52)
[2018-01-01] MEDS: traZODone 50 MG Tablet PO (20:52)
[2018-01-01] MEDS: Atorvastatin Calcium 20 MG Tablet PO (20:52)
[2018-01-01 21:25] LABS: Bedside Glucose 192 mg/dL (70-110)
[2018-01-02 07:10] LABS: Bedside Glucose 97 mg/dL (70-110)
[2018-01-02 07:15] LABS: International Normalized Ratio 1.9; Prothrombin Time (Protime)PT. 22.1 SECONDS (11.7-14.9)
--- NOTE | 2018-01-02 08:57 | NURSING ---
NO for coumadin 5mg PO daily
[2018-01-02] MEDS: amLODIPine 5 MG Tablet PO (10:54)
[2018-01-02] MEDS: Flecainide 150 MG Tablet PO ×2 (10:54→20:50)
[2018-01-02] MEDS: Carvedilol 6.25 MG Tablet PO ×2 (10:54→17:46)
[2018-01-02] MEDS: Folic Acid 1 MG Tablet PO (10:54)
[2018-01-02] MEDS: Aspirin 81 MG TAB.CHEW PO (10:54)
[2018-01-02] MEDS: Lisinopril 20 MG Tablet PO (10:54)
[2018-01-02] MEDS: Cyanocobalamin 500 MCG Tablet 2000 MCG PO (10:55)
[2018-01-02] MEDS: Pantoprazole Sodium 40 MG Tablet PO (10:55)
[2018-01-02] MEDS: Senna/Docusate Sodium 1 Tablet 2 TABLET PO ×2 (10:55→17:46)
[2018-01-02] MEDS: Furosemide 20 MG Tablet 60 MG PO ×2 (10:55→17:48)
[2018-01-02] MEDS: guaiFENesin 600 MG Tablet PO ×2 (10:55→17:48)
[2018-01-02] MEDS: Calcium (Elemental) 500 MG Tablet PO ×2 (10:55→17:47)
[2018-01-02] MEDS: Gabapentin 600 MG Tablet PO ×2 (10:55→17:47)
[2018-01-02] MEDS: Loratadine 10 MG Tablet PO (10:56)
[2018-01-02] MEDS: Glucerna Shake 120 ML LIQUID PO ×3 (10:56→20:50)
[2018-01-02] MEDS: Iron Polysaccharide Complex 150 MG CAPSULE PO (10:56)
[2018-01-02] MEDS: Polyethylene Glycol 3350 17 GM PACKET PO (10:56)
[2018-01-02] MEDS: Doxycycline 100 MG CAPSULE PO ×2 (10:58→20:50)
[2018-01-02] MEDS: Menthol/Lanolin/Calamine/Znox 113 GM Tube 1 APPLIC TOPICAL ×2 (11:03→20:52)
[2018-01-02] MEDS: Ipratropium Bromide 0.06% NASAL SPRAY 2 SPRAY NASAL ×2 (11:03→17:51)
[2018-01-02] MEDS: Nystatin Powder 15gm Bottle 1 APPLIC TOPICAL ×2 (11:04→20:50)
[2018-01-02] MEDS: oxyCODONE 5 MG Tablet 10 MG PO ×2 (11:12→17:54)
--- NOTE | 2018-01-02 11:56 | NURSING ---
Dr. Henderson in to see patient, NO for doxycycline.
--- NOTE | 2018-01-02 11:59 | NURSING ---
Pt left for appointment at [id number]
--- NOTE | 2018-01-02 14:26 | NURSING ---
Did not get to assess wound today. pt is at [facility] in [place].
--- NOTE | 2018-01-02 14:53 | PN.ID_ITS ---
Patient Problems: Active and Suspected Problems (Last Reviewed 12/04/17 @ 01:53 by Sanjay Rhodes MD) Wound abscess (Acute) Squamous cell carcinoma, face (Acute) Subjective: Not feeling well, chin still sore, no fever. Cx sent last week due to drainage. - Physical Exam General: Alert, Cooperative, No apparent distress Lungs: Clear to auscultation, Normal air movement Cardiovascular: Regular rate, Regular Rhythm Abdomen: Soft, Non Tender, Non-Distended Skin: Ulcer/ Wound - on chin, bandaged Vital Signs Temp Pulse Resp BP Pulse Ox 96.7 F L 96 18 146/77 H 91 01/01/18 16:00 01/01/18 16:00 01/01/18 16:00 01/01/18 16:00 01/01/18 16:00 Oxygen Flow Rate (L/min) 97 Oxygen Delivery Method Room Air Weight: 109.854 kg Body Mass Index (BMI) 42.0 Finger Stick Blood Glucose 117 Intake and Output for Last 24 Hours 12/31/17 01/01/18 01/02/18 23:59 23:59 23:59 Intake Total 1280 / 1280 840 / 840 240 / 240 Balance 1280 / 1280 840 / 840 240 / 240 Microbiology Past 72 Hours 12/30/17 20:40 Blood Culture - Preliminary Blood Culture (Wb) - Left Hand No growth in 48 hours. 12/30/17 20:30 Blood Culture - Preliminary Blood Culture (Wb) - Right Hand No growth in 48 hours. 12/30/17 16:00 Gram Stain - Final Wound - Open/Non-Healing Wound Wound Culture - Final Meth. resistant Staph. aureus 12/30/17 16:00 Throat Culture - Final Mucosa - Throat Meth. resistant Staph. aureus Laboratory Tests Past 24 Hrs 01/02/18 07:02 PT 22.1 H INR 1.9 POC Glucose 01/02/18 01/01/18 01/01/18 06:17 21:10 17:06 POC Glucose 97 192 H 220 H Medical Necessity - Tobacco Use Smoking Status: Never smoker Tobacco Use: Non-smoker Route of nutrition/ use of supplements: [] Nutritional Intake: [] IV Site: [] Muro Catheter: [] - Assessment/Plan Antibiotics: [] Assessment/Plan: [] Active and Suspected Problems (Last Reviewed 12/04/17 @ 01:53 by Sanjay Rhodes MD) Wound abscess (Acute) Squamous cell carcinoma, face (Acute) Wound relatively stable. D/w wound care nurse. Recent cx with MRSA, will start doxy 100mg po bid. She has appt with surgeon today to go over options for un derlying cancer. Will follow.
[2018-01-02 17:56] LABS: Bedside Glucose 113 mg/dL (70-110)
[2018-01-02] MEDS: Atorvastatin Calcium 20 MG Tablet PO (20:50)
[2018-01-02] MEDS: traZODone 50 MG Tablet PO (20:50)
[2018-01-02] MEDS: metFORMIN HCl 1,000 MG Tablet 1000 MG PO (20:50)
[2018-01-02 21:21] LABS: Bedside Glucose 225 mg/dL (70-110)
[2018-01-03] MEDS: oxyCODONE 5 MG Tablet 10 MG PO ×3 (05:07→17:51)
[2018-01-03] MEDS: Glucerna Shake 120 ML LIQUID PO ×4 (05:07→20:46)
[2018-01-03 06:56] LABS: Bedside Glucose 125 mg/dL (70-110)
[2018-01-03] MEDS: Calcium (Elemental) 500 MG Tablet PO ×2 (09:20→17:40)
[2018-01-03] MEDS: Furosemide 20 MG Tablet 60 MG PO ×3 (09:20→17:41)
[2018-01-03] MEDS: Gabapentin 600 MG Tablet PO ×3 (09:21→17:41)
[2018-01-03] MEDS: Aspirin 81 MG TAB.CHEW PO (09:21)
[2018-01-03] MEDS: Loratadine 10 MG Tablet PO (09:21)
[2018-01-03] MEDS: amLODIPine 5 MG Tablet PO (09:21)
[2018-01-03] MEDS: Folic Acid 1 MG Tablet PO (09:21)
[2018-01-03] MEDS: guaiFENesin 600 MG Tablet PO ×2 (09:21→17:42)
[2018-01-03] MEDS: Iron Polysaccharide Complex 150 MG CAPSULE PO (09:21)
[2018-01-03] MEDS: Carvedilol 6.25 MG Tablet PO ×2 (09:22→17:41)
[2018-01-03] MEDS: Doxycycline 100 MG CAPSULE PO ×2 (09:22→20:45)
[2018-01-03] MEDS: Lisinopril 20 MG Tablet PO (09:22)
[2018-01-03] MEDS: Polyethylene Glycol 3350 17 GM PACKET PO (09:22)
[2018-01-03] MEDS: Pantoprazole Sodium 40 MG Tablet PO (09:22)
[2018-01-03] MEDS: Senna/Docusate Sodium 1 Tablet 2 TABLET PO ×2 (09:22→17:42)
[2018-01-03] MEDS: Cyanocobalamin 500 MCG Tablet 2000 MCG PO (09:23)
[2018-01-03] MEDS: Flecainide 150 MG Tablet PO ×2 (09:24→20:45)
[2018-01-03] MEDS: Ipratropium Bromide 0.06% NASAL SPRAY 2 SPRAY NASAL ×2 (09:36→17:44)
[2018-01-03] MEDS: Menthol/Lanolin/Calamine/Znox 113 GM Tube 1 APPLIC TOPICAL ×2 (09:36→20:48)
[2018-01-03] MEDS: Nystatin Powder 15gm Bottle 1 APPLIC TOPICAL ×2 (09:37→20:49)
--- NOTE | 2018-01-03 10:47 | NURSING ---
pt remains in contact isolation, all treatments provided in room
--- NOTE | 2018-01-03 10:48 | NURSING ---
wound photo: chin
[2018-01-03 10:50] VITALS: BP 154/95; PULSE 100; RESP 20; TEMP 36.9; O2SAT 93
[2018-01-03] MEDS: Acetaminophen 500 MG Tablet 1000 MG PO (10:54)
--- NOTE | 2018-01-03 10:54 | NURSING ---
After changing the chin dressing, assisted patient into bathroom with walker. pt wanted to wash her face at the sink. pt was quite unsteady getting back into the chair. pt states her legs gets easily tired. assisted pt getting dressing. denies further needs at this time. will continue to monitor wound.
[2018-01-03 14:16] LABS: Bedside Glucose 199 mg/dL (70-110)
[2018-01-03 16:00] VITALS: BP 86/50; PULSE 58; RESP 20; TEMP 36.2; O2SAT 93
--- NOTE | 2018-01-03 16:38 | PCM.PN.ID ---
Patient Problems: Active and Suspected Problems (Last Reviewed 12/04/17 @ 01:53 by Sanjay Rhodes MD) Wound abscess (Acute) Squamous cell carcinoma, face (Acute) Subjective: Feeling ok, no fever. CT scan planned. No n/v/d with abx. - Physical Exam General: Alert, Cooperative, No apparent distress Lungs: Clear to auscultation, Normal air movement Cardiovascular: Regular rate, Regular Rhythm Abdomen: Soft, Non Tender, Non-Distended Skin: Ulcer/ Wound - on chin Vital Signs Temp Pulse Resp BP Pulse Ox 98.5 F 100 20 H 154/95 H 93 01/03/18 10:50 01/03/18 10:50 01/03/18 10:50 01/03/18 10:50 01/03/18 10:50 Oxygen Flow Rate (L/min) 97 Oxygen Delivery Method Room Air Weight: 109.854 kg Body Mass Index (BMI) 42.0 Finger Stick Blood Glucose 117 Intake and Output for Last 24 Hours 01/01/18 01/02/18 01/03/18 23:59 23:59 23:59 Intake Total 840 / 840 600 / 600 240 / 240 Balance 840 / 840 600 / 600 240 / 240 Microbiology Past 72 Hours 12/30/17 20:40 Blood Culture - Preliminary Blood Culture (Wb) - Left Hand No growth in 48 hours. 12/30/17 20:30 Blood Culture - Preliminary Blood Culture (Wb) - Right Hand No growth in 48 hours. 12/30/17 16:00 Gram Stain - Final Wound - Open/Non-Healing Wound Wound Culture - Final Meth. resistant Staph. aureus 12/30/17 16:00 Throat Culture - Final Mucosa - Throat Meth. resistant Staph. aureus POC Glucose 01/03/18 01/03/18 01/02/18 14:12 06:48 21:10 POC Glucose 199 H 125 H 225 H 01/02/18 17:50 POC Glucose 113 H Medical Necessity - Tobacco Use Smoking Status: Never smoker Tobacco Use: Non-smoker Route of nutrition/ use of supplements: [] Nutritional Intake: [] IV Site: [] Muro Catheter: [] - Assessment/Plan Antibiotics: [] Assessment/Plan: [] Active and Suspected Problems (Last Reviewed 12/04/17 @ 01:53 by Sanjay Rhodes MD) Wound abscess (Acute) Squamous cell carcinoma, face (Acute) Wound relatively stable. Recent cx with MRSA, cont doxy 100mg po bid, started 01/02/18. CT scan planned. Will follow.
[2018-01-03 17:10] LABS: Bedside Glucose 188 mg/dL (70-110)
--- NOTE | 2018-01-03 18:12 | NURSING ---
oral care done at eating supper. Requesting to go back to bed. Assisted with nightgown and then back to bed. dressing change to chin done at this time.
[2018-01-03] MEDS: metFORMIN HCl 1,000 MG Tablet 1000 MG PO (20:45)
[2018-01-03] MEDS: Atorvastatin Calcium 20 MG Tablet PO (20:46)
[2018-01-03] MEDS: traZODone 50 MG Tablet PO (20:46)
[2018-01-03 21:21] LABS: Bedside Glucose 178 mg/dL (70-110)
--- NOTE | 2018-01-04 00:33 | NURSING ---
Pt remains in contact isolation this shift d/t MRSA in wound.
[2018-01-04 06:41] LABS: Bedside Glucose 111 mg/dL (70-110)
--- NOTE | 2018-01-04 09:18 | NURSING ---
pt off unit to CT scan at this time, approved by insurance
--- NOTE | 2018-01-04 09:25 | CT_ITS ---
STUDY: CT SOFT TISSUE NECK WITH CONTRAST REASON FOR EXAM: Female, 67 years old. History of squamous cell carcinoma. RADIATION DOSAGE (If Supplied By Facility): CTDIvol = ( 19.62 ) mGy, DLP = ( 1028.63 ) mGycm TECHNIQUE: The patient was scanned in a multi-detector CT scanner. High resolution transaxial imaging was performed following intravenous administration of 75 ml of Isovue 370 contrast material. Sagittal and coronal images were reconstructed. # of Images: 300 Individualized dose optimization techniques were used for this CT. COMPARISON: None. FINDINGS: Soft tissue mass along the anterior aspect of the mid portion of the mandible with underlying bony destruction. A large soft tissue gap is seen in the center portion of this mass. This may represent either a neoplastic process or an infectious aggressive process.Clinical correlation is recommended. Normal bilateral parotid glands. Normal bilateral help desk supervisor spaces. Normal bilateral parapharyngeal spaces. Normal bilateral carotid spaces. Normal bilateral sublingual and submandibular glands and spaces. Normal visualized nasopharynx. Normal retropharyngeal space. Normal perivertebral space. Normal visualized bilateral faucial tonsils. The visualized tongue, tongue base and oropharynx are normal. The visualized cervical lymph nodes (levels I-) are within normal size limits, and maintain normal morphology. There is no demonstrated solid or cystic mass lesion. There is no abnormal contrast enhancement. Normal epiglottis, bilateral vallecula and hypopharynx. The pre-epiglottic and paraglottic adipose spaces are normal. Normal visualized bilateral piriform sinuses, aryepiglottic folds, vocal cords, and arytenoid-cricoid articulations. Normal subglottic trachea. Normal bilateral lobes of the thyroid gland. Normal visualized pulmonary apices. Normal visualized paranasal sinuses. Normal visualize cervical spine. CT/Soft Tissue Neck WITH Contrast IMPRESSION: Soft tissue mass with central ulceration along the anterior aspect of the central mandible with underlying bony destruction. Electronically Signed: Karlos Felipe MD at 13:52 EDT Tel [phone], Service support ,
[2018-01-04 10:16] LABS: Bedside Glucose 116 mg/dL (70-110)
[2018-01-04] MEDS: Glucerna Shake 120 ML LIQUID PO ×3 (10:29→20:52)
[2018-01-04] MEDS: Doxycycline 100 MG CAPSULE PO ×2 (10:29→20:51)
[2018-01-04] MEDS: Cyanocobalamin 500 MCG Tablet 2000 MCG PO (10:30)
[2018-01-04] MEDS: Lisinopril 20 MG Tablet PO (10:30)
[2018-01-04] MEDS: Flecainide 150 MG Tablet PO ×2 (10:31→20:51)
[2018-01-04] MEDS: Pantoprazole Sodium 40 MG Tablet PO (10:31)
[2018-01-04] MEDS: Calcium (Elemental) 500 MG Tablet PO ×2 (10:31→18:04)
[2018-01-04] MEDS: amLODIPine 5 MG Tablet PO (10:31)
[2018-01-04] MEDS: Senna/Docusate Sodium 1 Tablet 2 TABLET PO ×2 (10:31→18:03)
[2018-01-04] MEDS: Loratadine 10 MG Tablet PO (10:32)
[2018-01-04] MEDS: Iron Polysaccharide Complex 150 MG CAPSULE PO (10:32)
[2018-01-04] MEDS: guaiFENesin 600 MG Tablet PO ×2 (10:32→18:04)
[2018-01-04] MEDS: Gabapentin 600 MG Tablet PO ×3 (10:32→18:04)
[2018-01-04] MEDS: Folic Acid 1 MG Tablet PO (10:32)
[2018-01-04] MEDS: Aspirin 81 MG TAB.CHEW PO (10:32)
[2018-01-04] MEDS: Carvedilol 6.25 MG Tablet PO ×2 (10:32→18:03)
[2018-01-04] MEDS: Furosemide 20 MG Tablet 60 MG PO ×3 (10:32→18:04)
[2018-01-04] MEDS: Menthol/Lanolin/Calamine/Znox 113 GM Tube 1 APPLIC TOPICAL ×2 (10:33→20:51)
[2018-01-04] MEDS: Polyethylene Glycol 3350 17 GM PACKET PO (10:33)
[2018-01-04] MEDS: oxyCODONE 5 MG Tablet 10 MG PO ×2 (10:45→20:50)
[2018-01-04] MEDS: Ipratropium Bromide 0.06% NASAL SPRAY 2 SPRAY NASAL ×2 (10:47→18:09)
[2018-01-04] MEDS: Nystatin Powder 15gm Bottle 1 APPLIC TOPICAL ×2 (10:47→20:52)
[2018-01-04 11:31] LABS: Bedside Glucose 203 mg/dL (70-110)
--- NOTE | 2018-01-04 14:36 | MDS.RN ---
Information for the mds was obtained from review of the clinical record, interview of resident, staff, and direct observation of resident's care.
[2018-01-04 16:00] VITALS: BP 109/89; PULSE 52; RESP 18; TEMP 36.2; O2SAT 93
[2018-01-04 17:01] LABS: Bedside Glucose 127 mg/dL (70-110)
--- NOTE | 2018-01-04 17:46 | CON.PCM_ITS ---
Reason for Consult History of Present Illness: The patient is a 67 year old female with hx of multiple medical problems including diabetes was seen today for long thickened painful toenails 1-5 bilateral. She is not able to maintain them herself. She has no other pedal complaints.] Past Medical History Past Medical History (Chronic Problems): Chronic Problems (Last Reviewed 12/04/17 @ 01:53 by Sanjay Rhodes MD) Edema (Chronic) Atrial fibrillation (Chronic) Sleep apnea (Chronic) GERD (gastroesophageal reflux disease) (Chronic) Insomnia (Chronic) Neuropathic pain (Chronic) Personal history of malignant neoplasm of other sites of lip, oral cavity, and pharynx (Chronic) Personal history of skin cancer (Chronic) Asthma (Chronic) Obesity (Chronic) Atrial enlargement, left (Chronic) BMI 40.0-44.9, adult (Chronic) Chronic diastolic (congestive) heart failure (Chronic) Diastolic dysfunction (Chronic) Sinus bradycardia (Chronic) Fatigue (Chronic) Long-term use of high-risk medication (Chronic) Bilateral lower extremity edema (Chronic) History of cardioversion (Chronic ~10/01/16) H/O right and left heart catheterization (Chronic ~05/15/15) H/O basal cell carcinoma excision (Chronic) Recurrent basal cell carcinoma following excision (Chronic) Persistent atrial fibrillation (Chronic) Chronic diastolic heart failure (Chronic) 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) HTN (hypertension) (Chronic) HLD (hyperlipidemia) (Chronic) Diabetes mellitus (Chronic) COPD (chronic obstructive pulmonary disease) (Chronic) NICKOLAS (obstructive sleep apnea) (Chronic) Morbid obesity (Chronic) Basal cell carcinoma of face (Chronic) Left face-has had 2 surgeries so far the first in February of 2015 Medical History: Medical History (Last Reviewed 12/04/17 @ 01:53 by Sanjay Rhodes MD) Asthma (Chronic) J45.909 Obesity (Chronic) E66.9 Atrial enlargement, left (Chronic) I51.7 BMI 40.0-44.9, adult (Chronic) Z68.41 History of syncope (Acute) Z87.898 Chronic diastolic (congestive) heart failure (Chronic) I50.32 Diastolic dysfunction (Chronic) I51.9 Sinus bradycardia (Chronic) R00.1 Fatigue (Chronic) R53.83 Long-term use of high-risk medication (Chronic) Z79.899 Syncope (Acute) R55 Bilateral lower extremity edema (Chronic) R60.0 Recurrent basal cell carcinoma following excision (Chronic) C44.91 Persistent atrial fibrillation (Chronic) I48.1 Chronic diastolic heart failure (Chronic) I50.32 jail (current) use of anticoagulants (Chronic) Z79.01 HTN (hypertension) (Chronic) I10 HLD (hyperlipidemia) (Chronic) E78.5 Diabetes mellitus (Chronic) E11.9 COPD (chronic obstructive pulmonary disease) (Chronic) J44.9 NICKOLAS (obstructive sleep apnea) (Chronic) G47.33 Morbid obesity (Chronic) E66.01 Basal cell carcinoma of face (Chronic) C44.310 Left face-has had 2 surgeries so far the first in February of 2015 Allergies ampicillin Allergy (Severe, Verified 12/18/17 19:41) Anaphylaxis hydrocodone bitartrate [From Vicodin] Allergy (Severe, Verified 12/18/17 19:41) Itching Penicillins Allergy (Severe, Verified 12/18/17 19:41) Anaphylaxis clarithromycin [From Biaxin] Allergy (Verified 12/18/17 19:41) Rash Red and itchy venom-honey bee [bee venom (honey bee)] Allergy (Verified 12/18/17 19:41) Nausea/Vom/Diarrhea Home Medications: Ambulatory Orders Medication Instructions Recorded Calcium Carbonate [Calcium] 500 mg PO BID 04/13/15 Diazepam [Valium] 10 mg PO TID 04/13/15 Metformin HCl [Glucophage] 1,000 mg PO QHS 04/13/15 Metformin HCl [Glucophage] 500 mg PO BREAKFAST 04/13/15 Omeprazole [Prilosec] 40 mg PO DAILY 04/13/15 traZODone [Desyrel] 50 mg PO QHS 04/13/15 Tizanidine HCl [Zanaflex] 2 mg PO TID 05/13/15 Oxycodone HCl/Acetaminophen 7.5 mg PO TID 07/20/16 [Percocet 10-325 mg Tablet] Albuterol Inhaler [Ventolin Hfa] 2 puff INHALATION Q4H PRN PRN #1 08/14/16 inhaler Gabapentin [Neurontin] 600 mg PO TID 01/26/17 atorvastatin 20 mg tablet 20 mg PO QHS tab 03/09/17 lisinopril 20 mg tablet 20 mg PO QDAY 03/09/17 insulin NPH isophane U- 100 human 18 unit SC QPM 04/18/17 100 unit/mL subcutaneous suspension insulin lispro (U- 100) 100 24 unit SC QAM 04/18/17 unit/mL subcutaneous solution Furosemide 40 mg PO TID 08/03/17 Insulin Lispro [Humalog] 10 unit SC LUNCH 08/03/17 Insulin Lispro [Humalog] 15 unit SQ DINNER 08/03/17 Insulin NPH Human [Humulin N Pen] 10 units SC DAILY@0730 08/03/17 warfarin 10 mg tablet 10 mg PO SUMOFRSA #30 tab 10/03/17 Biotin 1 tab PO DAILY 11/18/17 Diphenoxylate/Atrop [Lomotil] 1 tab PO Q6H PRN PRN 11/18/17 Folic Acid 0.8 mg PO DAILY 11/18/17 Ipratropium Dale 0.06% 2 spray NASAL BID 11/18/17 [ATROVENT NASAL SPRAY] Vitamin B12 2,000 unit PO DAILY 11/18/17 Amlodipine Besylate [Norvasc] 5 mg PO QDAY 12/23/17 Aspirin [Aspirin, Baby] 81 mg PO DAILY@0800 12/23/17 Carvedilol [Coreg (Beta Randall)] 6.25 mg PO BID 12/23/17 Cetirizine HCl [Zyrtec] 10 mg PO DAILY 12/23/17 Ferrous Sulfate 325 mg PO DAILY@0800 12/23/17 Flecainide Acetate 150 mg PO Q12H 12/23/17 Metolazone [Zaroxolyn] 2.5 mg PO .COMPLEX 12/23/17 Potassium Chloride [K-Dur] 40 meq PO QDAY 12/23/17 Warfarin [Coumadin] 7.5 mg PO TUWETH 12/23/17 Surgical History: Surgical History (Last Reviewed 12/04/17 @ 01:53 by Sanjay Rhodes MD) History of facial surgery (Resolved) Z98.890 History of tonsillectomy (Resolved) Z98.890, Z90.89 History of bilateral knee replacement (Resolved) Z98.890, Z96.653 History of cataract extraction (Resolved) Z98.49 History of cardioversion (Chronic) Onset Date: ~10/01/16 Z98.890 H/O right and left heart catheterization (Chronic) Onset Date: ~05/15/15 Z98.890 H/O basal cell carcinoma excision (Chronic) Z98.890, Z85.828 Surgical History: total knee arthroplasty - Bilateral, tonsillectomy, - - Surgeries to the left face for basal cell carcinoma involving the left lower eyelid and then plastic repair, recent 11/2017 surgical interventions w/ I+D MRSA abscess, partial ostectomy anterior mandible. 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: No pertinent POULTRY SCALDER history Lives: Alone Smoking Status: Never smoker Tobacco Use: Non-smoker Alcohol: None Drugs: None - *Family History Paternal Family History: Family History (Last Reviewed 10/25/17 @ 09:00 by Selina Richards) Mother Hypertension Diabetes Father Heart disease Hypertension Diabetes Sister Hypertension Brother Diabetes History Items: Cancer, Diabetes, Hypertension Maternal Family History: Family History (Last Reviewed 10/25/17 @ 09:00 by Selina Richards) Mother Hypertension Diabetes Father Heart disease Hypertension Diabetes Sister Hypertension Brother Diabetes History Items: Heart Disease, Hypertension Sibling Family History: Family History (Last Reviewed 10/25/17 @ 09:00 by Selina Richards) Mother Hypertension Diabetes Father Heart disease Hypertension Diabetes Sister Hypertension Brother Diabetes History Items: Heart Disease Review of Systems Constitutional: Denies: Chills, Fever Patient Problems: Active and Suspected Problems (Last Reviewed 12/04/17 @ 01:53 by Sanjay Rhodes MD) Wound abscess (Acute) Squamous cell carcinoma, face (Acute) - Physical Exam General: Alert, Oriented x3, Cooperative, No apparent distress Extremities: No clubbing, No cyanosis, - - Toenails 1-5 bilateral are elongated, thickened, dystrophic, yellow, painful and subungual debris present. No open lesions, no drainage, no fluctuance, no necrosis, no acute ischemia to the foot/ankle bilateral. CFT < 2 seconds to all toes with intact pulses bilateral foot. Muscle mass WNL and strength intact to foot/ankle bilateral. Vital Signs Temp Pulse Resp BP Pulse Ox 97.2 F L 52 L 18 109/89 H 93 01/04/18 16:00 01/04/18 16:00 01/04/18 16:00 01/04/18 16:00 01/04/18 16:00 Oxygen Flow Rate (L/min) 97 Oxygen Delivery Method Room Air Weight: 109.854 kg Body Mass Index (BMI) 42.0 Finger Stick Blood Glucose 117 Intake and Output for Last 24 Hours 01/02/18 01/03/18 01/04/18 23:59 23:59 23:59 Intake Total 600 / 600 720 / 720 460 / 460 Balance 600 / 600 720 / 720 460 / 460 Microbiology Past 72 Hours 12/30/17 20:40 Blood Culture - Preliminary Blood Culture (Wb) - Left Hand No growth in 48 hours. 12/30/17 20:30 Blood Culture - Preliminary Blood Culture (Wb) - Right Hand No growth in 48 hours. POC Glucose 01/04/18 01/04/18 01/04/18 16:58 11:28 10:11 POC Glucose 127 H 203 H 116 H 01/04/18 01/03/18 06:36 21:14 POC Glucose 111 H 178 H Assessment/Plan All Active Problems (Last Reviewed 12/04/17 @ 01:53 by Sanjay Rhodes MD) Wound abscess (Acute) Squamous cell carcinoma, face (Acute) Osteomyelitis of mandible (Acute) Abscess of chin (Acute) Methicillin resistant Staphylococcus aureus infection (Acute) Facial cellulitis (Acute) History of facial surgery (Resolved) History of tonsillectomy (Resolved) History of bilateral knee replacement (Resolved) History of cataract extraction (Resolved) History of syncope (Acute) Syncope (Acute) Acute asthmatic bronchitis (Resolved) Acute exacerbation of CHF (congestive heart failure) (Resolved) Atrial fibrillation with RVR (Resolved) Paroxysmal A-fib (Resolved) SOB (shortness of breath) (Resolved) Dystrophic toenails 1-5 chinyere Onychomycosis 1-5 chinyere toenails Pain toe right and left Diabetes Reviewed conditions and treatment options. Debrided toenails 1-5 bilateral using a toenail nipper. This was done w/out incident. Reviewed proper diabetic foot care. Patient to follow up as outpatient at our office for continued diabetic foot care, otherwise will follow up with patient in TCU as needed. Thank you for consultation.
[2018-01-04] MEDS: Atorvastatin Calcium 20 MG Tablet PO (20:51)
[2018-01-04] MEDS: metFORMIN HCl 1,000 MG Tablet 1000 MG PO (20:51)
[2018-01-04] MEDS: traZODone 50 MG Tablet PO (20:51)
[2018-01-04 21:11] LABS: Bedside Glucose 146 mg/dL (70-110)
[2018-01-05] MEDS: Glucerna Shake 120 ML LIQUID PO ×4 (05:31→20:57)
[2018-01-05 06:05] LABS: International Normalized Ratio 1.8; Prothrombin Time (Protime)PT. 21.3 SECONDS (11.7-14.9)
[2018-01-05 06:36] LABS: Bedside Glucose 111 mg/dL (70-110)
[2018-01-05] MEDS: Gabapentin 600 MG Tablet PO (09:53)
[2018-01-05] MEDS: Senna/Docusate Sodium 1 Tablet PO (09:53)
[2018-01-05] MEDS: Flecainide 150 MG Tablet PO ×2 (09:53→20:57)
[2018-01-05] MEDS: Furosemide 20 MG Tablet 60 MG PO (09:53)
[2018-01-05] MEDS: Menthol/Lanolin/Calamine/Znox 113 GM Tube 1 APPLIC TOPICAL ×2 (09:54→20:57)
[2018-01-05] MEDS: Doxycycline 100 MG CAPSULE PO ×2 (09:54→20:57)
[2018-01-05] MEDS: Aspirin 81 MG TAB.CHEW PO (09:54)
[2018-01-05] MEDS: Carvedilol 6.25 MG Tablet PO ×2 (09:54→17:40)
[2018-01-05] MEDS: Ipratropium Bromide 0.06% NASAL SPRAY 2 SPRAY NASAL ×2 (09:54→17:43)
[2018-01-05] MEDS: Nystatin Powder 15gm Bottle 1 APPLIC TOPICAL ×2 (09:55→20:58)
[2018-01-05] MEDS: Polyethylene Glycol 3350 17 GM PACKET PO (09:55)
[2018-01-05] MEDS: oxyCODONE 5 MG Tablet 10 MG PO ×2 (11:27→21:05)
--- NOTE | 2018-01-05 12:48 | CASEMGMT ---
Insurance Clinicals sent, pending continued stay approval at this time. Auth#[id number] Ritika WEINBERG, MUSEUM HOST/HOSTESS
[2018-01-05] MEDS: Acetaminophen 500 MG Tablet 1000 MG PO (15:05)
[2018-01-05 16:00] VITALS: BP 132/68; PULSE 63; RESP 18; TEMP 36.3; O2SAT 92
[2018-01-05 16:55] LABS: Bedside Glucose 166 mg/dL (70-110)
[2018-01-05] MEDS: Atorvastatin Calcium 20 MG Tablet PO (20:57)
[2018-01-05] MEDS: traZODone 50 MG Tablet PO (20:57)
[2018-01-05 21:26] LABS: Bedside Glucose 188 mg/dL (70-110)
--- NOTE | 2018-01-05 22:46 | NURSING ---
All care provided in room d/t pt remaining in contact precautions.
[2018-01-06] MEDS: Glucerna Shake 120 ML LIQUID PO ×4 (05:35→21:02)
[2018-01-06 07:00] LABS: Bedside Glucose 112 mg/dL (70-110)
[2018-01-06] MEDS: Acetaminophen 500 MG Tablet 1000 MG PO (09:47)
[2018-01-06] MEDS: Aspirin 81 MG TAB.CHEW PO (09:48)
[2018-01-06] MEDS: Furosemide 20 MG Tablet 60 MG PO ×2 (09:48→17:32)
[2018-01-06] MEDS: oxyCODONE 5 MG Tablet 10 MG PO ×2 (09:48→17:35)
[2018-01-06] MEDS: Carvedilol 6.25 MG Tablet PO ×2 (09:49→17:32)
[2018-01-06] MEDS: Gabapentin 600 MG Tablet PO ×2 (09:49→17:50)
[2018-01-06] MEDS: Doxycycline 100 MG CAPSULE PO ×2 (09:49→21:03)
[2018-01-06] MEDS: Flecainide 150 MG Tablet PO ×2 (09:49→17:33)
[2018-01-06] MEDS: Nystatin Powder 15gm Bottle 1 APPLIC TOPICAL ×2 (09:50→21:03)
[2018-01-06] MEDS: Ipratropium Bromide 0.06% NASAL SPRAY 2 SPRAY NASAL ×2 (09:53→17:37)
--- NOTE | 2018-01-06 10:58 | CASEMGMT ---
Insurance Continued stay approved with next update due on 01/11/18. Auth#[id number] Ritika WEINBERG, RADARMAN
--- NOTE | 2018-01-06 11:10 | NURSING ---
ALL CARE PROVIDED IN ROOM T/O SHIFT PER CONTACT ISOLATION D/T MRSA.
[2018-01-06] MEDS: Menthol/Lanolin/Calamine/Znox 113 GM Tube 1 APPLIC TOPICAL ×2 (12:07→21:08)
[2018-01-06] MEDS: Neomycin Sulfate/Polymyxin/Hc Susp 10 ML Bottle 4 DRP OTIC ×2 (12:55→21:06)
[2018-01-06 14:30] LABS: Bedside Glucose 149 mg/dL (70-110)
[2018-01-06 16:00] VITALS: BP 127/61; PULSE 76; RESP 18; TEMP 35.7; O2SAT 95
--- NOTE | 2018-01-06 16:03 | PCM.PN.ID ---
Patient Problems: Active and Suspected Problems (Last Reviewed 12/04/17 @ 01:53 by Sanjay Rhodes MD) Wound abscess (Acute) Squamous cell carcinoma, face (Acute) Subjective: Feeling ok, chin still sore, no n/v/d. - Physical Exam General: Alert, Cooperative, No apparent distress Lungs: Clear to auscultation, Normal air movement Cardiovascular: Regular rate, Regular Rhythm Abdomen: Soft, Non Tender, Non-Distended Skin: Ulcer/ Wound - chin ulcer Vital Signs Temp Pulse Resp BP Pulse Ox 96.9 F L 84 16 134/70 H 97 01/06/18 16:00 01/06/18 16:00 01/06/18 16:00 01/06/18 16:00 01/06/18 16:00 Oxygen Flow Rate (L/min) 97 Oxygen Delivery Method Room Air Weight: 109.854 kg Body Mass Index (BMI) 42.0 Finger Stick Blood Glucose 117 Intake and Output for Last 24 Hours 01/04/18 01/05/18 01/06/18 23:59 23:59 23:59 Intake Total 940 / 940 820 / 820 Balance 940 / 940 820 / 820 Microbiology Past 72 Hours 12/30/17 20:30 Blood Culture - Final Blood Culture (Wb) - Right Hand No growth in 5 days. 12/30/17 20:40 Blood Culture - Final Blood Culture (Wb) - Left Hand No growth in 5 days. POC Glucose 01/06/18 01/06/18 01/05/18 14:22 06:30 21:19 POC Glucose 149 H 112 H 188 H 01/05/18 16:51 POC Glucose 166 H Medical Necessity - Tobacco Use Smoking Status: Never smoker Tobacco Use: Non-smoker Route of nutrition/ use of supplements: [] Nutritional Intake: [] IV Site: [] Muro Catheter: [] - Assessment/Plan Antibiotics: [] Assessment/Plan: [] Active and Suspected Problems (Last Reviewed 12/04/17 @ 01:53 by Sanjay Rhodes MD) Wound abscess (Acute) Squamous cell carcinoma, face (Acute) Wound relatively stable. Recent cx with MRSA, cont doxy 100mg po bid, started 01/02/18, plan on 10-[address] scan done. Will follow.
[2018-01-06 17:00] LABS: Bedside Glucose 201 mg/dL (70-110)
--- NOTE | 2018-01-06 21:00 | NURSING ---
pt in isolation for mrsa. Pt kept in room
[2018-01-06] MEDS: Atorvastatin Calcium 20 MG Tablet PO (21:02)
[2018-01-06] MEDS: traZODone 50 MG Tablet PO (21:02)
[2018-01-06 21:15] LABS: Bedside Glucose 129 mg/dL (70-110)
[2018-01-07] MEDS: Neomycin Sulfate/Polymyxin/Hc Susp 10 ML Bottle 4 DRP OTIC ×3 (05:10→21:11)
[2018-01-07] MEDS: Glucerna Shake 120 ML LIQUID PO ×3 (05:11→17:21)
[2018-01-07 07:01] LABS: Bedside Glucose 134 mg/dL (70-110)
[2018-01-07 07:16] LABS: Absolute Lymphocyte Count 0.99 X10^3/ul (0.83-4.51); Absolute Neutrophil Count 6.1 X10^3/uL (2.0-7.7); Basophil# 0.04 X10^3/uL; Basophil% 0.5 % (0-1); Eosinophil# 0.19 X10^3/uL; Eosinophils% 2.3 % (0-5); Hematocrit 38.4 % (37-47); Hemoglobin 11.8 g/dl (12.0-15.0); Lymphocyte # 0.99 X10^3/ul (4.0); Lymphocyte % 12.2 % (19-41); Mean Corp Hgb Conc 30.7 g/gl (32-36); Mean Corpuscular Hgb 27.8 pg (27.0-32.0); Mean Corpuscular Volume 90.6 fL (81-99); Mean Platelet Vol. 12.1 fl (6.2-12.0); Monocyte# 0.73 X10^3/uL; Neutrophil # 6.12 X10^3/uL (2.7-7.7); Neutrophil % 75.8 % (47-70); Platelet Count 296 K/mm3 (150-450); RBC Distribution Width CV 14.6 % (11.6-14.6); RBC Distribution Width SD 47.4 fl (35.1-43.9); Red Blood Count 4.24 M/mm3 (4.2-5.4); White Blood Count 8.1 K/mm3 (4.4-11.0)
[2018-01-07 07:17] LABS: POSITIVE COUNT NO; POSITIVE DIFFERENTIAL NO; POSITIVE MORPHOLOGY NO
[2018-01-07 08:03] LABS: Anion Gap 6 (5-15); BUN 22 mg/dL (7-18); BUN/Creat Ratio 19.1 RATIO (10-20); Calcium,Total 8.9 mg/dL (8.5-10.1); Chloride 100 mmol/L (98-107); Creatinine, Serum 1.15 mg/dL (0.55-1.02); EST Glomerular Filtration Rate 50 mL/min (>60); Est Glom Filt Rate - Afr Amer 60 mL/min (>60); Estimated Creatinine Clearance 38.19 ml/min; Glucose 124 mg/dL (74-106); Potassium 4.1 mmol/L (3.5-5.1); Sodium Level 139 mmol/L (136-145)
[2018-01-07] MEDS: Doxycycline 100 MG CAPSULE PO ×2 (09:50→21:11)
[2018-01-07] MEDS: Aspirin 81 MG TAB.CHEW PO (09:50)
[2018-01-07] MEDS: Gabapentin 600 MG Tablet PO ×2 (09:50→17:21)
[2018-01-07] MEDS: Carvedilol 6.25 MG Tablet PO ×2 (09:51→17:21)
[2018-01-07] MEDS: Furosemide 20 MG Tablet 60 MG PO ×2 (09:51→17:20)
[2018-01-07] MEDS: Senna/Docusate Sodium 1 Tablet PO ×2 (09:51→17:20)
[2018-01-07] MEDS: Flecainide 150 MG Tablet PO ×2 (09:51→21:11)
[2018-01-07] MEDS: Polyethylene Glycol 3350 17 GM PACKET PO (09:54)
[2018-01-07] MEDS: Menthol/Lanolin/Calamine/Znox 113 GM Tube 1 APPLIC TOPICAL ×2 (09:55→21:11)
[2018-01-07] MEDS: Nystatin Powder 15gm Bottle 1 APPLIC TOPICAL ×2 (09:56→21:11)
[2018-01-07] MEDS: Ipratropium Bromide 0.06% NASAL SPRAY 2 SPRAY NASAL ×2 (09:56→17:20)
[2018-01-07] MEDS: oxyCODONE 5 MG Tablet 10 MG PO ×2 (10:53→21:10)
[2018-01-07 13:56] LABS: Bedside Glucose 152 mg/dL (70-110)
--- NOTE | 2018-01-07 14:33 | NURSING ---
Pt has c/o blisters in mouth that are painful. Dr. Padilla updated. NO for BMX mouthwash.
[2018-01-07 15:21] VITALS: BP 153/80; PULSE 55; RESP 16; TEMP 35.9; O2SAT 94
[2018-01-07 17:06] LABS: Bedside Glucose 193 mg/dL (70-110)
[2018-01-07] MEDS: BMX LIQUID 180 ML 10 ML PO (17:22)
[2018-01-07] MEDS: Atorvastatin Calcium 20 MG Tablet PO (21:11)
[2018-01-07] MEDS: traZODone 50 MG Tablet PO (21:11)
[2018-01-07 21:21] LABS: Bedside Glucose 140 mg/dL (70-110)
--- NOTE | 2018-01-07 22:03 | NURSING ---
Pt remaining in contact precautions dt MRSA in wound. All care provided in room.
[2018-01-08 06:31] LABS: Bedside Glucose 104 mg/dL (70-110)
[2018-01-08] MEDS: Gabapentin 600 MG Tablet PO ×2 (10:37→16:49)
[2018-01-08] MEDS: Flecainide 150 MG Tablet PO ×2 (10:37→20:46)
[2018-01-08] MEDS: Doxycycline 100 MG CAPSULE PO ×2 (10:37→20:46)
[2018-01-08] MEDS: Furosemide 20 MG Tablet 60 MG PO ×2 (10:37→16:49)
[2018-01-08] MEDS: Senna/Docusate Sodium 1 Tablet PO ×2 (10:37→16:49)
[2018-01-08] MEDS: Carvedilol 6.25 MG Tablet PO ×2 (10:37→16:48)
[2018-01-08] MEDS: Polyethylene Glycol 3350 17 GM PACKET PO (10:39)
[2018-01-08] MEDS: Aspirin 81 MG TAB.CHEW PO (10:39)
[2018-01-08] MEDS: Glucerna Shake 120 ML LIQUID PO ×2 (10:41→16:49)
[2018-01-08] MEDS: Neomycin Sulfate/Polymyxin/Hc Susp 10 ML Bottle 4 DRP OTIC ×3 (10:47→20:47)
[2018-01-08] MEDS: Ipratropium Bromide 0.06% NASAL SPRAY 2 SPRAY NASAL ×2 (10:48→16:50)
[2018-01-08] MEDS: Menthol/Lanolin/Calamine/Znox 113 GM Tube 1 APPLIC TOPICAL ×2 (10:48→20:46)
[2018-01-08] MEDS: Nystatin Powder 15gm Bottle 1 APPLIC TOPICAL ×2 (10:48→20:46)
[2018-01-08] MEDS: oxyCODONE 5 MG Tablet 10 MG PO ×2 (11:00→18:11)
[2018-01-08] MEDS: BMX LIQUID 180 ML 10 ML PO (11:42)
--- NOTE | 2018-01-08 12:46 | NURSING ---
Pt remains in contact precautions d/t MRSA in wound. All care provided in room this shift.
[2018-01-08 14:11] LABS: Bedside Glucose 143 mg/dL (70-110)
[2018-01-08 15:37] VITALS: BP 117/64; PULSE 46; RESP 18; TEMP 36; O2SAT 98
[2018-01-08 16:55] LABS: Bedside Glucose 139 mg/dL (70-110)
[2018-01-08] MEDS: traZODone 50 MG Tablet PO (20:46)
[2018-01-08] MEDS: Atorvastatin Calcium 20 MG Tablet PO (20:46)
[2018-01-08 21:11] LABS: Bedside Glucose 115 mg/dL (70-110)
--- NOTE | 2018-01-08 22:10 | NURSING ---
Pt remaining in contact precautions dt MRSA in wound. All care provided in room this shift.
[2018-01-09 06:54] LABS: International Normalized Ratio 2.2; Prothrombin Time (Protime)PT. 24.3 SECONDS (11.7-14.9)
[2018-01-09 06:56] LABS: Bedside Glucose 114 mg/dL (70-110)
[2018-01-09] MEDS: Polyethylene Glycol 3350 17 GM PACKET PO (08:14)
[2018-01-09] MEDS: Neomycin Sulfate/Polymyxin/Hc Susp 10 ML Bottle 4 DRP OTIC ×3 (08:14→20:50)
[2018-01-09] MEDS: Glucerna Shake 120 ML LIQUID PO ×4 (08:15→20:50)
[2018-01-09] MEDS: Ipratropium Bromide 0.06% NASAL SPRAY 2 SPRAY NASAL ×2 (08:15→16:50)
[2018-01-09] MEDS: Menthol/Lanolin/Calamine/Znox 113 GM Tube 1 APPLIC TOPICAL ×2 (08:15→20:49)
[2018-01-09] MEDS: Nystatin Powder 15gm Bottle 1 APPLIC TOPICAL ×2 (08:16→20:50)
--- NOTE | 2018-01-09 09:37 | NURSING ---
PT remains in contact isolation, all treatment performed in pt room
[2018-01-09] MEDS: Gabapentin 600 MG Tablet PO ×2 (10:27→16:48)
[2018-01-09] MEDS: Senna/Docusate Sodium 1 Tablet PO ×2 (10:28→16:48)
[2018-01-09] MEDS: Flecainide 150 MG Tablet PO ×2 (10:28→20:49)
[2018-01-09] MEDS: Furosemide 20 MG Tablet 60 MG PO ×2 (10:28→16:48)
[2018-01-09] MEDS: Aspirin 81 MG TAB.CHEW PO (10:28)
[2018-01-09] MEDS: oxyCODONE 5 MG Tablet 10 MG PO ×3 (10:35→23:05)
[2018-01-09] MEDS: Doxycycline 100 MG CAPSULE PO ×2 (10:35→20:49)
[2018-01-09] MEDS: BMX LIQUID 180 ML 10 ML PO (10:37)
[2018-01-09 10:43] VITALS: PULSE 56
--- NOTE | 2018-01-09 10:48 | NURSING ---
Eating breakfast at this time. Complains of lip pain. Medicated with oxyir. Will give good oral care when she is done eating and give BMX at well.
[2018-01-09 11:00] LABS: Bedside Glucose 193 mg/dL (70-110)
--- NOTE | 2018-01-09 11:14 | NURSING ---
This RN noted resident to have increased swelling and hardness to area of face to the RT of the wound. Resident complains of pain and states she feels like face is feeling worse and more painful and does not feel like there is improvement. Updated JACK Villanueva and she calls Raquel wound RN to see if she can assess wound as well.
[2018-01-09 14:15] LABS: Bedside Glucose 156 mg/dL (70-110)
--- NOTE | 2018-01-09 15:54 | CHAPLAIN ---
Type of Pastoral Visit ___ Initial Visit _x__ Follow-up Visit ___ On-call Visit ___ General Patient Visit ___ Spiritual Assessment ___ Family Conference ___ Bereavement ___ Rapid Response ___ Code Blue ___ Other (describe below) Pastoral Care Referral From _x__ Patient ___ Family ___ Nurse ___ Physician ___ Fulfillment Coordinator ___ Sales Marketing Director ___ Other (describe below) Sacrament/Intervention _x__ Active listening ___ Anointing ___ Religious ___ Bereavement ___ Communion ___ Lo exploration ___ ___ Life review _x__ Prayer ___ Reconciliation ___ Sacrament of Sick _x__ Supportive presence ___ Wedding ___ Other (describe below) Pastoral Comments
[2018-01-09 16:00] VITALS: BP 105/70; PULSE 64; RESP 20; TEMP 35.7; O2SAT 96
--- NOTE | 2018-01-09 16:41 | CASEMGMT ---
Social Work Voicemail from resident brother, Brijesh Abel. This social work program coordinator checking with resident to confirm that resident is agreeable to this social work program coordinator contacting Brijesh back. Resident is agreeable to this social work program coordinator contacting Brijesh. Telephone call to Brijesh. Brijesh reporting to live in [place] and that resident also has a sister Willa that lives in [place]. Brijesh reporting that Willa is power of real estate attorney for health care for resident. Brijesh voicing concerns of resident returning to prior home as Brijesh is reporting to have been in the house this past weekend and that it is infested with mice and has two wolves living in the house. This social work program coordinator confirming the wolves Brijesh reporting that the wolves have lived with resident for some time now and are fine to be around but no one is currently able to get the wolves to do outside. Brijesh reporting that the house has been without electric for the past 2 weeks and has an odder. Brijesh reporting that have spoken with resident over the weekend and that resident is now agreeable to placement in a group home as resident is voicing to not be able to take care of self and to be unable to return to prior home, per Brijesh. This social work program coordinator explaining that ones resident is discontinued skilled services that it would be private pay or medicaid to cover a group home. Brijesh voicing that resident bank account is empty due to the people that were living with resident. Brijesh reporting that the people that were living with resident have been evicted from the house. Brijesh reporting that resident owns the house. Brijesh reporting that resident is many outstanding medical bills. This social work program coordinator voicing understanding and agreeing that resident is currently unable to meet own needs within the community. This social work program coordinator explaining medicaid process. Brijesh reporting to be able to assist with getting information together for medicaid application for resident. This social work program coordinator explaining to be able to assist resident in completing the initial application. Plan is for Brijesh and Willa to talk further this evening and this social work program coordinator to contact Willa tomorrow pending resident approval. Spoke with resident in room. Resident confirming all above information and agreeable to completing medicaid application with this social work program coordinator. Resident agreeable to this social work program coordinator contacting resident sister Willa tomorrow and to this social work program coordinator working with resident and resident siblings towards extended care facility placement for resident when skilled services are discontinued. Support given. Telephone call to Adult Protective ServicesKari. This social work program coordinator leaving voicemail updating Kari on all above information. Will continue to follow. Ritika WEINBERG, CATTLE MANAGER
[2018-01-09] MEDS: Carvedilol 6.25 MG Tablet PO (16:48)
[2018-01-09 17:11] LABS: Bedside Glucose 145 mg/dL (70-110)
[2018-01-09] MEDS: Acetaminophen 500 MG Tablet 1000 MG PO (20:01)
[2018-01-09] MEDS: traZODone 50 MG Tablet PO (20:49)
[2018-01-09] MEDS: Atorvastatin Calcium 20 MG Tablet PO (20:49)
[2018-01-09 21:11] LABS: Bedside Glucose 178 mg/dL (70-110)
--- NOTE | 2018-01-09 22:13 | NURSING ---
All care provided in room d/t pt remaining in precautions.
[2018-01-10] MEDS: Glucerna Shake 120 ML LIQUID PO ×3 (05:23→20:43)
[2018-01-10 06:45] LABS: Bedside Glucose 124 mg/dL (70-110)
[2018-01-10] MEDS: Neomycin Sulfate/Polymyxin/Hc Susp 10 ML Bottle 4 DRP OTIC ×3 (07:04→20:42)
[2018-01-10] MEDS: Doxycycline 100 MG CAPSULE PO (09:18)
[2018-01-10] MEDS: Flecainide 150 MG Tablet PO ×2 (09:19→20:42)
[2018-01-10] MEDS: Furosemide 20 MG Tablet 60 MG PO ×2 (09:19→17:49)
[2018-01-10] MEDS: Senna/Docusate Sodium 1 Tablet PO ×2 (09:19→17:50)
[2018-01-10] MEDS: Aspirin 81 MG TAB.CHEW PO (09:20)
[2018-01-10] MEDS: Polyethylene Glycol 3350 17 GM PACKET PO (09:20)
[2018-01-10] MEDS: Gabapentin 600 MG Tablet PO ×2 (09:20→17:49)
[2018-01-10] MEDS: Menthol/Lanolin/Calamine/Znox 113 GM Tube 1 APPLIC TOPICAL ×2 (09:44→20:43)
[2018-01-10] MEDS: Ipratropium Bromide 0.06% NASAL SPRAY 2 SPRAY NASAL (09:45)
[2018-01-10] MEDS: Nystatin Powder 15gm Bottle 1 APPLIC TOPICAL ×2 (09:45→20:42)
[2018-01-10] MEDS: BMX LIQUID 180 ML 10 ML PO (10:25)
[2018-01-10] MEDS: oxyCODONE 5 MG Tablet 10 MG PO ×3 (10:26→20:41)
--- NOTE | 2018-01-10 10:31 | NURSING ---
Pt has c/o increased pain to wound on chin. Dr. Padilla updated, NO to change oxyir 10mg PO to [id number] PRN.
[2018-01-10 10:43] VITALS: PULSE 56
--- NOTE | 2018-01-10 10:50 | NURSING ---
ALL CARE PROVIDED IN ROOM T/O SHIFT D/T CONTACT PRECAUTIONS FOR MRSA IN WOUND.
--- NOTE | 2018-01-10 11:21 | PN.ID_ITS ---
Patient Problems: Active and Suspected Problems (Last Reviewed 01/09/18 @ 14:08 by Kari Womack) Wound abscess (Acute) Squamous cell carcinoma, face (Acute) Subjective: Not feeling any better. No fever. Chin sore. - Physical Exam General: Alert, Cooperative, No apparent distress Lungs: Clear to auscultation, Normal air movement Cardiovascular: Regular rate, Regular Rhythm Abdomen: Soft, Non Tender, Non-Distended Skin: Ulcer/ Wound - on chin Vital Signs Temp Pulse Resp BP Pulse Ox 96.3 F L 56 L 20 H 105/70 96 01/09/18 16:00 01/10/18 10:43 01/09/18 16:00 01/09/18 16:00 01/09/18 16:00 Oxygen Flow Rate (L/min) 97 Oxygen Delivery Method Room Air Weight: 109.854 kg Body Mass Index (BMI) 42.0 Finger Stick Blood Glucose 117 Intake and Output for Last 24 Hours 01/08/18 01/09/18 01/10/18 23:59 23:59 23:59 Intake Total 1320 / 1320 1080 / 1080 Balance 1320 / 1320 1080 / 1080 POC Glucose 01/10/18 01/09/18 01/09/18 06:25 21:04 16:58 POC Glucose 124 H 178 H 145 H 01/09/18 14:12 POC Glucose 156 H Medical Necessity - Tobacco Use Smoking Status: Never smoker Tobacco Use: Non-smoker Route of nutrition/ use of supplements: [] Nutritional Intake: [] IV Site: [] Muro Catheter: [] - Assessment/Plan Antibiotics: [] Assessment/Plan: [] Active and Suspected Problems (Last Reviewed 12/04/17 @ 01:53 by Sanjay Rhodes MD) Wound abscess (Acute) Squamous cell carcinoma, face (Acute) Wound relatively stable, but only minimal improvement in size, still with pain, redness, and drainage. Had bone biopsy previously that was negative for inf ection but (+) for squamous cell cancer. Now on po doxy for MRSA in the wound which has good bone penetration. Some of the ongoing drainage and necrosis is likely due to the underlying cancer. Will repeat wound cx to see if any new organisms are present. Will change doxy to iv vanc to see if this makes a difference. Will follow.
--- NOTE | 2018-01-10 11:43 | NURSING ---
wound photo: chin
--- NOTE | 2018-01-10 11:56 | NURSING ---
Dr. Henderson in to see patient today, NO for IV Vancomycin. literacy tutor notified for placement of PICC line, patient updated.
--- NOTE | 2018-01-10 12:03 | PCM.RX.CS ---
Consult Pharmacy has been consulted to manage selected antiobiotic: Vancomycin Type of Consult: New start Suspected Infection: Skin/Soft tissue Prior Doses of Antibiotics Received/Current Regimen: NO VANCOMYCIN GIVEN PREVIOUSLY Labs: Sodium 139 mmol/L (136-145) 01/07/18 06:26 Potassium 4.1 mmol/L (3.5-5.1) 01/07/18 06:26 Chloride 100 mmol/L (98-107) 01/07/18 06:26 Carbon Dioxide 33.0 mmol/L (21.0-32.0) H 01/07/18 06:26 Anion Gap 6 (5-15) 01/07/18 06:26 BUN 22 mg/dL (7-18) H 01/07/18 06:26 Creatinine 1.15 mg/dL (0.55-1.02) H 01/07/18 06:26 Est GFR (MDRD) Af Amer 60 mL/min (>60) 01/07/18 06:26 Est GFR (MDRD) Non-Af 50 mL/min (>60) L 01/07/18 06:26 BUN/Creatinine Ratio 19.1 RATIO (-20) 01/07/18 06:26 Glucose 124 mg/dL (74-106) H 01/07/18 06:26 Microbiology: Microbiology 12/30/17 20:30 Blood Culture (Wb) - Right Hand Blood Culture - Final No growth in 5 days. 12/30/17 20:40 Blood Culture (Wb) - Left Hand Blood Culture - Final No growth in 5 days. 12/30/17 16:00 Wound - Open/Non-Healing Wound Gram Stain - Final 12/30/17 16:00 Wound - Open/Non-Healing Wound Wound Culture - Final Meth. resistant Staph. aureus 12/30/17 16:00 Mucosa - Throat Throat Culture - Final Meth. resistant Staph. aureus 12/26/17 07:00 Urine Catheter - Catheter Urine Culture - Final Culture exhibits no growth. Weight used for dosin kg Estimated Creatinine Clearance: 38ML/MIN Goal Trough: 15-20 mcg/mL Pharmacy Plan for Drug Dosing: Pharmacy to manage vancomycin for the treatment of a MRSA (+) wound infection per ID progress note. Will give the patient a loading dose, schedule a trough prior to the 3rd total dose of vancomycin. Since the last BMP was from 01/07, will plan on ordering one for 10/24 AM to assess renal function. PLAN/RECOMMENDATION 1. Vancomycin 2000mg IV x1 01/10/18 @1300 2. Scheduled vancomycin 1500mg IV Q24hr to start 01/11/18 @1300 3. Trough scheduled for 01/12/18 @1230 4. BMP ordered for 01/11 to assess SCr 5. Pharmacy Service will continue to monitor and adjust dosing as required.
--- NOTE | 2018-01-10 13:41 | CASEMGMT ---
Social Work Telephone call to resident sister, Willa. Willa expressing frustration with current medical status for resident. This social services aide directing Willa to speak with the nurse today. JACK Estevez plans to contact Willa in regards to resident medical status. Willa reporting to be agreeable and open to having a medicaid application completed for resident and resident transitioning to an extended care facility when resident does not qualify for continued skilled services. This social services aide able to answer Willa's questions in regards to insurance approval, ECF transfer, and medicaid application. Support given. Spoke with resident in room to complete medicaid application. Medicaid application completed with resident. Medicaid application faxed to [facility]. Resident is agreeable to ECF placement if needed at time of discharge. Resident also planning to speak with resident friend about possibly moving in with friend at time of discharge if resident is physically able. Resident aware that resident is currently not physically able to take care of self. Resident confirming that resident wolves in the home are being fed by neighbors. Support given. Will continue to follow. Ritika WEINBERG, DIRECTOR OF GROUP SALES
[2018-01-10 16:00] VITALS: BP 133/55; PULSE 56; RESP 20; TEMP 36.6; O2SAT 96
[2018-01-10 16:55] LABS: Bedside Glucose 124 mg/dL (70-110)
--- NOTE | 2018-01-10 17:12 | NURSING ---
RN changing patient's dressing. Wound began bleeding, RN could not get bleeding to stop. Dr. Soto notified, came to unit and used silver nitrate to stop bleeding. WTD dressing applied. Will continue to monitor.
--- NOTE | 2018-01-10 18:15 | NURSING ---
Addendum entered by Anel Triana 01/10/18 18:40: NO to hold coumadin and recheck INR . Original Note: COUMADIN HELD THIS EVENING PER DR QUINTANILLA D/T EXCESSIVE BLEEDING FROM CHIN WOUND DURING DRESSING CHANGE. SILVER NITRATE WAS APPLIED BY DR. RIVERA TO STOP BLEEDING.
--- NOTE | 2018-01-10 18:35 | RAD_ITS ---
STUDY: X-RAY CHEST REASON FOR EXAM: Female, 67 years old. PICC line placement TECHNIQUE: Single AP portable view of the chest. COMPARISON: Previous study of 12/26/2017 FINDINGS: There is a right-sided PICC line with tip superimposed on the mid SVC. The lungs are clear and expanded. There is no demonstrated pleural abnormality. Normal size heart. Normal mediastinum and barbara. Normal visualized pulmonary arteries. There are calcified plaques of the aortic arch. Normal visualized thoracic spine. Normal visualized ribs, clavicles, and shoulders. There is no demonstrated abnormality of the visualized soft tissue structures of the upper abdomen. RAD/CXR for Line Placement IMPRESSION: Right-sided PICC line with tip superimposed on the mid SVC. Calcified plaques of the aortic arch. No acute cardiopulmonary disease process is seen. Electronically Signed: Ruslan Wright MD at 18:58 EDT , Service support ,
[2018-01-10] MEDS: Acetaminophen 500 MG Tablet 1000 MG PO (19:15)
[2018-01-10] MEDS: Vancomycin IV 1,000 MG/200 ML BAG 200 MG IV ×2 (20:41→22:07)
[2018-01-10] MEDS: traZODone 50 MG Tablet PO (20:42)
[2018-01-10] MEDS: Atorvastatin Calcium 20 MG Tablet PO (20:42)
[2018-01-10 21:01] LABS: Bedside Glucose 231 mg/dL (70-110)
--- NOTE | 2018-01-11 06:21 | NURSING ---
All care provided in room d/t pt remaining in precautions for MRSA in wound.
[2018-01-11] MEDS: Glucerna Shake 120 ML LIQUID PO ×3 (06:27→21:51)
[2018-01-11] MEDS: oxyCODONE 5 MG Tablet 10 MG PO ×3 (06:27→21:53)
[2018-01-11] MEDS: Neomycin Sulfate/Polymyxin/Hc Susp 10 ML Bottle 4 DRP OTIC ×3 (06:27→21:50)
[2018-01-11 07:00] LABS: Bedside Glucose 121 mg/dL (70-110)
[2018-01-11] MEDS: Furosemide 20 MG Tablet 60 MG PO (11:00)
[2018-01-11 11:02] LABS: Anion Gap 8 (5-15); BUN 18 mg/dL (7-18); BUN/Creat Ratio 17.6 RATIO (10-20); Calcium,Total 8.3 mg/dL (8.5-10.1); Chloride 100 mmol/L (98-107); Creatinine, Serum 1.02 mg/dL (0.55-1.02); EST Glomerular Filtration Rate 57 mL/min (>60); Est Glom Filt Rate - Afr Amer 69 mL/min (>60); Estimated Creatinine Clearance 43.06 ml/min; Glucose 122 mg/dL (74-106); Potassium 4.3 mmol/L (3.5-5.1); Sodium Level 138 mmol/L (136-145)
[2018-01-11] MEDS: Polyethylene Glycol 3350 17 GM PACKET PO (11:02)
[2018-01-11] MEDS: Menthol/Lanolin/Calamine/Znox 113 GM Tube 1 APPLIC TOPICAL ×2 (11:03→21:50)
[2018-01-11] MEDS: Gabapentin 600 MG Tablet PO ×2 (11:05→18:10)
[2018-01-11] MEDS: Nystatin Powder 15gm Bottle 1 APPLIC TOPICAL ×2 (11:05→21:50)
[2018-01-11] MEDS: Senna/Docusate Sodium 1 Tablet PO ×2 (11:06→18:10)
[2018-01-11] MEDS: Flecainide 150 MG Tablet PO ×2 (11:06→21:50)
[2018-01-11] MEDS: Ipratropium Bromide 0.06% NASAL SPRAY 2 SPRAY NASAL (11:08)
--- NOTE | 2018-01-11 11:40 | NURSING ---
pt chin bleeding, drsg changed multiple times, pressure applied, notified dr layne. new order for silver nitrate.
--- NOTE | 2018-01-11 11:51 | CASEMGMT ---
Insurance Clinical information sent. Pending continued stay approval at this time. Auth#[id number] Ritika WEINBERG, DIP DYER
--- NOTE | 2018-01-11 12:56 | PCM.PN.ID ---
Patient Problems: Active and Suspected Problems (Last Reviewed 01/09/18 @ 14:08 by Kari Womack) Wound abscess (Acute) Squamous cell carcinoma, face (Acute) Subjective: Not feeling well, no fever, no n/v. - Physical Exam General: Alert, Cooperative, No apparent distress Lungs: Clear to auscultation, Normal air movement Cardiovascular: Regular rate, Regular Rhythm Abdomen: Soft, Non Tender, Non-Distended Skin: Ulcer/ Wound - chin bandaged Vital Signs Temp Pulse Resp BP Pulse Ox 97.8 F 56 L 20 H 133/55 H 96 01/10/18 16:00 01/10/18 16:00 01/10/18 16:00 01/10/18 16:00 01/10/18 16:00 Oxygen Flow Rate (L/min) 97 Oxygen Delivery Method Room Air Weight: 104.383 kg Body Mass Index (BMI) 42.0 Finger Stick Blood Glucose 117 Intake and Output for Last 24 Hours 01/09/18 01/10/18 01/11/18 23:59 23:59 23:59 Intake Total 1080 / 1080 600 / 600 Balance 1080 / 1080 600 / 600 Microbiology Past 72 Hours 01/10/18 15:15 Gram Stain - Final Wound - Face Wound Culture - Preliminary Mixed Rosana Laboratory Tests Past 24 Hrs 01/11/18 09:42 Sodium 138 Potassium 4.3 Chloride 100 Carbon Dioxide 30.0 Anion Gap 8 BUN 18 Creatinine 1.02 Estim Creat Clear Calc 43.06 Est GFR (MDRD) Af Amer 69 Est GFR (MDRD) Non-Af 57 L BUN/Creatinine Ratio 17.6 Glucose 122 H Calcium 8.3 L POC Glucose 01/11/18 01/10/18 01/10/18 06:58 20:57 16:52 POC Glucose 121 H 231 H 124 H Medical Necessity - Tobacco Use Smoking Status: Never smoker Tobacco Use: Non-smoker Route of nutrition/ use of supplements: [] Nutritional Intake: [] IV Site: [] Muro Catheter: [] - Assessment/Plan Antibiotics: [] Assessment/Plan: [] Active and Suspected Problems (Last Reviewed 12/04/17 @ 01:53 by Sanjay Rhodes MD) Wound abscess (Acute) Squamous cell carcinoma, face (Acute) Wound relatively stable, but only minimal improvement in size, still with pain, redness, and drainage. Had bone biopsy previously that was negative for infection but (+) for squamous cell cancer. Started iv vanc 01/10. Repeat wound cx with GPC, mixed rosana. Will follow.
[2018-01-11 13:25] VITALS: RESP 16
[2018-01-11 14:06] LABS: Bedside Glucose 154 mg/dL (70-110)
[2018-01-11] MEDS: Acetaminophen 500 MG Tablet 1000 MG PO (15:04)
[2018-01-11 15:57] VITALS: BP 150/69; PULSE 59; RESP 18; TEMP 35.9; O2SAT 93
[2018-01-11 17:00] LABS: Bedside Glucose 93 mg/dL (70-110)
--- NOTE | 2018-01-11 19:00 | NURSING ---
dr layne updated on gram stain results, no new orders.
[2018-01-11] MEDS: 0.9% NaCl PICC Flush 10 ML IV (19:35)
[2018-01-11] MEDS: 0.9% NaCl IVPB Med Flush (250 mL) 15 ML IV (19:36)
[2018-01-11 20:51] LABS: Bedside Glucose 204 mg/dL (70-110)
[2018-01-11] MEDS: traZODone 50 MG Tablet PO (21:49)
[2018-01-11] MEDS: Atorvastatin Calcium 20 MG Tablet PO (21:50)
[2018-01-12] MEDS: 0.9% NaCl PICC Flush 10 ML IV ×3 (05:09→20:41)
[2018-01-12] MEDS: Glucerna Shake 120 ML LIQUID PO ×3 (05:09→17:46)
[2018-01-12] MEDS: Neomycin Sulfate/Polymyxin/Hc Susp 10 ML Bottle 4 DRP OTIC ×3 (05:09→21:46)
[2018-01-12 05:35] LABS: International Normalized Ratio 2.5; Prothrombin Time (Protime)PT. 27.3 SECONDS (11.7-14.9)
[2018-01-12 05:48] LABS: Anion Gap 6 (5-15); BUN 18 mg/dL (7-18); BUN/Creat Ratio 16.7 RATIO (10-20); Calcium,Total 8.5 mg/dL (8.5-10.1); Chloride 98 mmol/L (98-107); Creatinine, Serum 1.08 mg/dL (0.55-1.02); EST Glomerular Filtration Rate 53 mL/min (>60); Est Glom Filt Rate - Afr Amer 65 mL/min (>60); Estimated Creatinine Clearance 40.67 ml/min; Glucose 115 mg/dL (74-106); Potassium 3.9 mmol/L (3.5-5.1); Sodium Level 137 mmol/L (136-145)
[2018-01-12 07:01] LABS: Bedside Glucose 119 mg/dL (70-110)
[2018-01-12] MEDS: Nystatin Powder 15gm Bottle 1 APPLIC TOPICAL ×2 (10:40→21:45)
[2018-01-12] MEDS: Menthol/Lanolin/Calamine/Znox 113 GM Tube 1 APPLIC TOPICAL ×2 (10:40→21:45)
--- NOTE | 2018-01-12 10:52 | PCM.PN.ID ---
Patient Problems: Active and Suspected Problems (Last Reviewed 01/09/18 @ 14:08 by Kari Womack) Wound abscess (Acute) Squamous cell carcinoma, face (Acute) Subjective: Feeling about the same, chin is sore, no fever, no n/v/d. - Physical Exam General: Alert, Cooperative, No apparent distress Lungs: Clear to auscultation, Normal air movement Cardiovascular: Regular rate, Regular Rhythm Abdomen: Soft, Non Tender, Non-Distended Skin: Ulcer/ Wound - chin bandaged, some drainage Vital Signs Temp Pulse Resp BP Pulse Ox 96.7 F L 59 L 18 150/69 H 93 01/11/18 15:57 01/11/18 15:57 01/11/18 15:57 01/11/18 15:57 01/11/18 15:57 Oxygen Flow Rate (L/min) 97 Oxygen Delivery Method Room Air Weight: 104.383 kg Body Mass Index (BMI) 42.0 Finger Stick Blood Glucose 117 Intake and Output for Last 24 Hours 01/10/18 01/11/18 01/12/18 23:59 23:59 23:59 Intake Total 600 / 600 840 / 840 Balance 600 / 600 840 / 840 Microbiology Past 72 Hours 01/10/18 15:15 Gram Stain - Final Wound - Face Wound Culture - Preliminary Coag Negative Staph Gram positive chino Alpha Hemolytic Streptococcus Laboratory Tests Past 24 Hrs 01/11/18 01/12/18 01/12/18 09:42 05:15 05:15 PT 27.3 H INR 2.5 Sodium 138 137 Potassium 4.3 3.9 Chloride 100 98 Carbon Dioxide 30.0 33.0 H Anion Gap 8 6 BUN 18 18 Creatinine 1.02 1.08 H Estim Creat Clear Calc 43.06 40.67 Est GFR (MDRD) Af Amer 69 65 Est GFR (MDRD) Non-Af 57 L 53 L BUN/Creatinine Ratio 17.6 16.7 Glucose 122 H 115 H Calcium 8.3 L 8.5 POC Glucose 01/12/18 01/11/18 01/11/18 06:37 20:45 16:54 POC Glucose 119 H 204 H 93 01/11/18 14:01 POC Glucose 154 H Medical Necessity - Tobacco Use Smoking Status: Never smoker Tobacco Use: Non-smoker Route of nutrition/ use of supplements: [] Nutritional Intake: [] IV Site: [] Muro Catheter: [] - Assessment/Plan Antibiotics: [] Assessment/Plan: [] Active and Suspected Problems (Last Reviewed 12/04/17 @ 01:53 by Sanjay Rhodes MD) Wound abscess (Acute) Squamous cell carcinoma, face (Acute) Wound relatively stable, but only minimal improvement in size, still with pain, redness, and drainage. Had bone biopsy previously that was negative for infection but (+) for squamous cell cancer. Started iv vanc 01/10. Repeat wound cx with CoNS, GPR, and strep, consistent with oral/skin rosana. No MRSA. Will add clinda. Intermediate plan is difficult if she continues to re-contaminate her wound. It may not heal due to underlying cancer, but it doesn't sound like surgery will happen until infection is gone, but it keeps on getting re-infected because it won't heal. Will follow.
[2018-01-12] MEDS: Furosemide 20 MG Tablet 60 MG PO ×2 (10:57→17:44)
[2018-01-12] MEDS: Senna/Docusate Sodium 1 Tablet PO ×2 (10:58→17:44)
[2018-01-12] MEDS: Aspirin 81 MG TAB.CHEW PO (10:58)
[2018-01-12] MEDS: Gabapentin 600 MG Tablet PO ×2 (10:58→17:44)
[2018-01-12] MEDS: Flecainide 150 MG Tablet PO ×2 (10:59→21:47)
[2018-01-12] MEDS: Polyethylene Glycol 3350 17 GM PACKET PO (10:59)
[2018-01-12] MEDS: oxyCODONE 5 MG Tablet 10 MG PO (11:07)
[2018-01-12] MEDS: Ipratropium Bromide 0.06% NASAL SPRAY 2 SPRAY NASAL ×2 (11:08→17:48)
[2018-01-12 11:21] LABS: Bedside Glucose 278 mg/dL (70-110)
--- NOTE | 2018-01-12 11:24 | NURSING ---
All activities and therapy performed in pt room, contact isolation maintained.
--- NOTE | 2018-01-12 13:37 | CASEMGMT ---
Insurance Continued stay approved with next update due on 01/16/18. Auth#[id number] Ritika WEINBERG, FLASH DRIER OPERATOR
[2018-01-12 14:11] LABS: Bedside Glucose 151 mg/dL (70-110)
[2018-01-12] MEDS: Clindamycin HCl 150 MG Capsule 300 MG PO ×2 (14:55→21:47)
[2018-01-12 16:00] VITALS: BP 146/74; PULSE 75; RESP 16; TEMP 36.3; O2SAT 97
[2018-01-12 17:16] LABS: Bedside Glucose 134 mg/dL (70-110)
[2018-01-12 20:36] LABS: Vancomycin, Trough Level 16.5 ug/mL (5.0-15.0)
[2018-01-12 21:16] LABS: Bedside Glucose 174 mg/dL (70-110)
[2018-01-12] MEDS: traZODone 50 MG Tablet PO (21:47)
[2018-01-12] MEDS: Atorvastatin Calcium 20 MG Tablet PO (21:47)
--- NOTE | 2018-01-12 21:52 | NURSING ---
All care provided in room this shift due to pt remaining in precautions for MRSA in chin wound
--- NOTE | 2018-01-13 02:15 | PCM.RX.CS ---
Consult Pharmacy has been consulted to manage selected antiobiotic: Vancomycin Type of Consult: Follow-up Suspected Infection: Skin/Soft tissue Labs: Sodium 137 mmol/L (136-145) 01/12/18 05:15 Potassium 3.9 mmol/L (3.5-5.1) 01/12/18 05:15 Chloride 98 mmol/L (98-107) 01/12/18 05:15 Carbon Dioxide 33.0 mmol/L (21.0-32.0) H 01/12/18 05:15 Anion Gap 6 (5-15) 01/12/18 05:15 BUN 18 mg/dL (7-18) 01/12/18 05:15 Creatinine 1.08 mg/dL (0.55-1.02) H 01/12/18 05:15 Est GFR (MDRD) Af Amer 65 mL/min (>60) 01/12/18 05:15 Est GFR (MDRD) Non-Af 53 mL/min (>60) L 01/12/18 05:15 BUN/Creatinine Ratio 16.7 RATIO (10-20) 01/12/18 05:15 Glucose 115 mg/dL (74-106) H 01/12/18 05:15 Vancomycin Trough 16.5 ug/mL (5.0-15.0) H 01/12/18 19:41 Microbiology: Microbiology 01/10/18 15:15 Wound - Face Gram Stain - Final 01/10/18 15:15 Wound - Face Wound Culture - Preliminary Coag Negative Staph Gram positive chino Alpha Hemolytic Streptococcus 12/30/17 20:30 Blood Culture (Wb) - Right Hand Blood Culture - Final No growth in 5 days. 12/30/17 20:40 Blood Culture (Wb) - Left Hand Blood Culture - Final No growth in 5 days. 12/30/17 16:00 Wound - Open/Non-Healing Wound Gram Stain - Final 12/30/17 16:00 Wound - Open/Non-Healing Wound Wound Culture - Final Meth. resistant Staph. aureus 12/30/17 16:00 Mucosa - Throat Throat Culture - Final Meth. resistant Staph. aureus 12/26/17 07:00 Urine Catheter - Catheter Urine Culture - Final Culture exhibits no growth. Goal Trough: 15-20 mcg/mL Pharmacy Plan for Drug Dosing: Pharmacy Service will continue to monitor and adjust dosing as required. Medications Vancomycin HCl 1,500 mg/ (Dextrose) 530 mls @ 250 mls/hr IV Q24H AMIE Last Admin: 01/12/18 20:41 Dose: 250 mls/hr TROUGH 16.5 (GOAL 15-20) NO CHANGES AT THIS TIME Follow-Up Labs: Trough Vancomycin Labs to be done on [date and time ordered]: 01/16 @ 1999
[2018-01-13] MEDS: oxyCODONE 5 MG Tablet 10 MG PO ×5 (03:48→23:36)
[2018-01-13 06:35] LABS: Bedside Glucose 120 mg/dL (70-110)
[2018-01-13] MEDS: Glucerna Shake 120 ML LIQUID PO ×3 (06:36→17:38)
[2018-01-13] MEDS: Neomycin Sulfate/Polymyxin/Hc Susp 10 ML Bottle 4 DRP OTIC ×3 (06:36→21:51)
[2018-01-13] MEDS: Clindamycin HCl 150 MG Capsule 300 MG PO ×3 (06:36→21:51)
[2018-01-13] MEDS: Polyethylene Glycol 3350 17 GM PACKET PO (09:45)
[2018-01-13] MEDS: Furosemide 20 MG Tablet 60 MG PO ×2 (09:45→17:40)
[2018-01-13] MEDS: Gabapentin 600 MG Tablet PO ×2 (09:46→17:40)
[2018-01-13] MEDS: Flecainide 150 MG Tablet PO ×2 (09:46→20:37)
[2018-01-13] MEDS: Senna/Docusate Sodium 1 Tablet PO ×2 (09:46→17:40)
[2018-01-13] MEDS: Ipratropium Bromide 0.06% NASAL SPRAY 2 SPRAY NASAL ×2 (09:47→17:39)
[2018-01-13] MEDS: Menthol/Lanolin/Calamine/Znox 113 GM Tube 1 APPLIC TOPICAL ×2 (09:47→20:38)
[2018-01-13] MEDS: Aspirin 81 MG TAB.CHEW PO (09:47)
[2018-01-13] MEDS: Nystatin Powder 15gm Bottle 1 APPLIC TOPICAL ×2 (09:48→20:38)
[2018-01-13 11:26] LABS: Bedside Glucose 199 mg/dL (70-110)
--- NOTE | 2018-01-13 12:59 | PN.ID_ITS ---
Patient Problems: Active and Suspected Problems (Last Reviewed 01/09/18 @ 14:08 by Kari Womack) Wound abscess (Acute) Squamous cell carcinoma, face (Acute) Subjective: C/o some nausea, loose stool last night. No abd pain. Chin is painful, no fever. - Physical Exam General: Alert, Cooperative, No apparent distress Lungs: Clear to auscultation, Normal air movement Cardiovascular: Regular rate, Regular Rhythm Abdomen: Soft, Non Tender, Non-Distended Skin: Ulcer/ Wound - chin slightly improved drainage, less bleeding Vital Signs Temp Pulse Resp BP Pulse Ox 97.4 F L 75 16 146/74 H 97 01/12/18 16:00 01/12/18 16:00 01/12/18 16:00 01/12/18 16:00 01/12/18 16:00 Oxygen Flow Rate (L/min) 97 Oxygen Delivery Method Room Air Weight: 104.383 kg Body Mass Index (BMI) 42.0 Finger Stick Blood Glucose 117 Intake and Output for Last 24 Hours 01/11/18 01/12/18 01/13/18 23:59 23:59 23:59 Intake Total 840 / 840 600 / 600 240 / 240 Balance 840 / 840 600 / 600 240 / 240 Microbiology Past 72 Hours 01/10/18 15:15 Gram Stain - Final Wound - Face Wound Culture - Final Coag Negative Staph Gram positive chino Alpha Hemolytic Streptococcus Laboratory Tests Past 24 Hrs 01/12/18 19:41 Vancomycin Trough 16.5 H POC Glucose 01/13/18 01/13/18 01/12/18 11:16 06:33 21:05 POC Glucose 199 H 120 H 174 H 01/12/18 01/12/18 17:10 14:07 POC Glucose 134 H 151 H Medical Necessity - Tobacco Use Smoking Status: Never smoker Tobacco Use: Non-smoker Route of nutrition/ use of supplements: [] Nutritional Intake: [] IV Site: [] Muro Catheter: [] - Assessment/Plan Antibiotics: [] Assessment/Plan: [] Active and Suspected Problems (Last Reviewed 12/04/17 @ 01:53 by Sanjay Rhodes MD) Wound abscess (Acute) Squamous cell carcinoma, face (Acute) Wound relatively stable, but only minimal improvement in size, still with pain, redness, and drainage. Had bone biopsy previously that was negative for infection but (+) for squamous cell cancer. Started iv vanc 01/10. Repeat wound cx with CoNS, GPR, and strep, consistent with oral/skin rosana. No MRSA. 01/12 added clinda. Senior Living plan is difficult if she continues to re-contaminate her wound. It may not heal due to underlying cancer, but it doesn't sound like surgery will happen until infection is gone, but it keeps on getting re-infected because it won't heal. May have to plan on continuing iv vanc until surgeon feels comfortable with operating. Will follow.
--- NOTE | 2018-01-13 15:25 | CASEMGMT ---
Social Work Spoke with resident and resident sister. Spoke with resident sister via conference call. This social security benefits interviewer collaborating on a discharge plan for resident. Resident sister, Willa voicing concern of resident being around friends in [facility] and wondering if resident would be able to be transitioned to a facility in [place], [place] were Willa lives. Resident is agreeable and concerned about friends that are local to [facility] as well in regards to continuing to spend resident money. Resident reporting that resident now has resident debit care back. Resident and Willa wanting to look into the options of resident transitioning skilled to another skilled facility in [place], [place]. This social security benefits interviewer to compile a list of facilities in [place] that are in network with resident insurance. List was complied and placed in resident room. Willa to be up to visit resident on Tuesday and plans to discuss further with resident where resident would like to transition to. Support given. Will continue to follow.
[2018-01-13 16:00] VITALS: BP 148/63; PULSE 55; RESP 18; TEMP 35.8; O2SAT 94
[2018-01-13 17:11] LABS: Bedside Glucose 135 mg/dL (70-110)
--- NOTE | 2018-01-13 18:59 | NURSING ---
Dressing to chin changed d/t drainage.
[2018-01-13] MEDS: 0.9% NaCl IVPB Med Flush (250 mL) 15 ML IV (20:37)
[2018-01-13] MEDS: 0.9% NaCl PICC Flush 10 ML IV (20:38)
[2018-01-13] MEDS: traZODone 50 MG Tablet PO (21:51)
[2018-01-13] MEDS: Atorvastatin Calcium 20 MG Tablet PO (21:51)
[2018-01-13 21:56] LABS: Bedside Glucose 179 mg/dL (70-110)
--- NOTE | 2018-01-14 01:33 | NURSING ---
All care provided in room d/t pt remaining in contact isolation for MRSA in wound.
[2018-01-14] MEDS: Clindamycin HCl 150 MG Capsule 300 MG PO ×3 (06:25→20:35)
[2018-01-14] MEDS: Neomycin Sulfate/Polymyxin/Hc Susp 10 ML Bottle 4 DRP OTIC ×3 (06:25→20:57)
[2018-01-14] MEDS: Glucerna Shake 120 ML LIQUID PO ×3 (06:26→17:28)
[2018-01-14 06:52] LABS: Absolute Lymphocyte Count 1.06 X10^3/ul (0.83-4.51); Absolute Neutrophil Count 4.9 X10^3/uL (2.0-7.7); Basophil# 0.03 X10^3/uL; Basophil% 0.4 % (0-1); Eosinophil# 0.24 X10^3/uL; Eosinophils% 3.5 % (0-5); Hematocrit 32.2 % (37-47); Lymphocyte # 1.06 X10^3/ul (4.0); Lymphocyte % 15.5 % (19-41); Mean Corp Hgb Conc 31.1 g/gl (32-36); Mean Corpuscular Hgb 28.2 pg (27.0-32.0); Mean Corpuscular Volume 90.7 fL (81-99); Mean Platelet Vol. 11.3 fl (6.2-12.0); Monocyte# 0.66 X10^3/uL; Monocyte% 9.6 % (0-10); Neutrophil # 4.85 X10^3/uL (2.7-7.7); Neutrophil % 70.7 % (47-70); Platelet Count 248 K/mm3 (150-450); RBC Distribution Width CV 14.5 % (11.6-14.6); RBC Distribution Width SD 46.7 fl (35.1-43.9); Red Blood Count 3.55 M/mm3 (4.2-5.4); White Blood Count 6.9 K/mm3 (4.4-11.0)
[2018-01-14 06:53] LABS: POSITIVE COUNT NO; POSITIVE DIFFERENTIAL NO; POSITIVE MORPHOLOGY NO
[2018-01-14 06:59] LABS: Anion Gap 4 (5-15); BUN 11 mg/dL (7-18); BUN/Creat Ratio 11.1 RATIO (10-20); Calcium,Total 8.2 mg/dL (8.5-10.1); Chloride 99 mmol/L (98-107); Creatinine, Serum 0.99 mg/dL (0.55-1.02); EST Glomerular Filtration Rate 59 mL/min (>60); Est Glom Filt Rate - Afr Amer 71 mL/min (>60); Estimated Creatinine Clearance 44.37 ml/min; Glucose 107 mg/dL (74-106); Potassium 3.7 mmol/L (3.5-5.1); Sodium Level 136 mmol/L (136-145)
[2018-01-14 07:06] LABS: Bedside Glucose 114 mg/dL (70-110)
[2018-01-14] MEDS: oxyCODONE 5 MG Tablet 10 MG PO ×3 (09:35→20:40)
[2018-01-14 10:06] LABS: Bedside Glucose 123 mg/dL (70-110)
[2018-01-14] MEDS: Flecainide 150 MG Tablet PO ×2 (10:25→20:35)
[2018-01-14] MEDS: Gabapentin 600 MG Tablet PO ×2 (10:25→17:29)
[2018-01-14] MEDS: Furosemide 20 MG Tablet 60 MG PO ×2 (10:25→17:28)
[2018-01-14] MEDS: Menthol/Lanolin/Calamine/Znox 113 GM Tube 1 APPLIC TOPICAL ×2 (10:26→20:36)
[2018-01-14] MEDS: Aspirin 81 MG TAB.CHEW PO (10:26)
[2018-01-14] MEDS: Ipratropium Bromide 0.06% NASAL SPRAY 2 SPRAY NASAL (10:26)
[2018-01-14] MEDS: Nystatin Powder 15gm Bottle 1 APPLIC TOPICAL ×2 (10:27→20:56)
[2018-01-14] MEDS: Acetaminophen 500 MG Tablet 1000 MG PO (11:21)
--- NOTE | 2018-01-14 11:30 | NURSING ---
DRESSING CHANGED TO CHIN WOUND AFTER PT FINISHED EATING MEAL. PT MEDICATED FOR PAIN
[2018-01-14 13:56] LABS: Bedside Glucose 135 mg/dL (70-110)
[2018-01-14 15:20] VITALS: BP 125/59; PULSE 53; RESP 18; TEMP 35.8; O2SAT 94
[2018-01-14 16:55] LABS: Bedside Glucose 135 mg/dL (70-110)
[2018-01-14] MEDS: 0.9% NaCl PICC Flush 10 ML IV (17:25)
[2018-01-14] MEDS: traZODone 50 MG Tablet PO (20:35)
[2018-01-14] MEDS: Atorvastatin Calcium 20 MG Tablet PO (20:35)
[2018-01-14] MEDS: 0.9% NaCl IVPB Med Flush (250 mL) 15 ML IV (20:36)
[2018-01-14 20:41] LABS: Bedside Glucose 264 mg/dL (70-110)
--- NOTE | 2018-01-15 00:14 | NURSING ---
All care provided in room d/t pt remains in precautions.
[2018-01-15] MEDS: Neomycin Sulfate/Polymyxin/Hc Susp 10 ML Bottle 4 DRP OTIC ×3 (06:27→20:33)
[2018-01-15] MEDS: Clindamycin HCl 150 MG Capsule 300 MG PO ×3 (06:27→20:32)
[2018-01-15] MEDS: Glucerna Shake 120 ML LIQUID PO ×2 (06:28→16:57)
[2018-01-15] MEDS: oxyCODONE 5 MG Tablet 10 MG PO ×2 (06:35→18:47)
[2018-01-15 06:55] LABS: Bedside Glucose 115 mg/dL (70-110)
[2018-01-15] MEDS: Menthol/Lanolin/Calamine/Znox 113 GM Tube 1 APPLIC TOPICAL ×2 (09:12→20:45)
[2018-01-15] MEDS: Nystatin Powder 15gm Bottle 1 APPLIC TOPICAL ×2 (09:13→20:32)
[2018-01-15] MEDS: Gabapentin 600 MG Tablet PO ×2 (09:14→16:57)
[2018-01-15] MEDS: Flecainide 150 MG Tablet PO ×2 (09:14→20:32)
[2018-01-15] MEDS: Furosemide 20 MG Tablet 60 MG PO ×2 (09:14→16:57)
[2018-01-15] MEDS: Aspirin 81 MG TAB.CHEW PO (09:15)
--- NOTE | 2018-01-15 09:38 | NURSING ---
pt remains in isolation, all treatments provided in room
[2018-01-15 14:00] LABS: Bedside Glucose 128 mg/dL (70-110)
[2018-01-15 15:45] VITALS: BP 152/65; PULSE 58; RESP 22; TEMP 35.9; O2SAT 91
[2018-01-15 16:51] LABS: Bedside Glucose 195 mg/dL (70-110)
--- NOTE | 2018-01-15 18:53 | NURSING ---
dressing changed to Chin wound as ordered. Pt medicated for pain. resting in bed, call light in reach.
[2018-01-15] MEDS: 0.9% NaCl IVPB Med Flush (250 mL) 15 ML IV (20:32)
[2018-01-15] MEDS: Atorvastatin Calcium 20 MG Tablet PO (20:32)
[2018-01-15] MEDS: 0.9% NaCl PICC Flush 10 ML IV (20:32)
[2018-01-15] MEDS: traZODone 50 MG Tablet PO (20:32)
[2018-01-15 21:20] LABS: Bedside Glucose 146 mg/dL (70-110)
[2018-01-16] MEDS: oxyCODONE 5 MG Tablet 10 MG PO ×3 (00:53→14:06)
[2018-01-16] MEDS: Clindamycin HCl 150 MG Capsule 300 MG PO ×3 (06:26→20:35)
[2018-01-16] MEDS: Neomycin Sulfate/Polymyxin/Hc Susp 10 ML Bottle 4 DRP OTIC ×3 (06:26→20:39)
[2018-01-16 06:36] LABS: Bedside Glucose 113 mg/dL (70-110)
[2018-01-16 07:06] LABS: International Normalized Ratio 1.5; Prothrombin Time (Protime)PT. 18.1 SECONDS (11.7-14.9)
[2018-01-16 10:05] LABS: Bedside Glucose 134 mg/dL (70-110)
--- NOTE | 2018-01-16 10:06 | NURSING ---
NO to restart coumadin 3mg PO daily and check INR QMOTH.
[2018-01-16] MEDS: Furosemide 20 MG Tablet 60 MG PO ×2 (10:37→17:51)
[2018-01-16] MEDS: Gabapentin 600 MG Tablet PO ×2 (10:38→17:52)
[2018-01-16] MEDS: Aspirin 81 MG TAB.CHEW PO (10:38)
[2018-01-16] MEDS: Senna/Docusate Sodium 1 Tablet PO (10:38)
[2018-01-16] MEDS: Flecainide 150 MG Tablet PO ×2 (10:39→20:35)
[2018-01-16] MEDS: Menthol/Lanolin/Calamine/Znox 113 GM Tube 1 APPLIC TOPICAL ×2 (10:44→20:37)
[2018-01-16] MEDS: Nystatin Powder 15gm Bottle 1 APPLIC TOPICAL ×2 (10:45→20:36)
[2018-01-16] MEDS: Glucerna Shake 120 ML LIQUID PO ×2 (12:03→17:50)
--- NOTE | 2018-01-16 13:37 | NURSING ---
wound photo: chin
--- NOTE | 2018-01-16 13:54 | PN_ITS ---
Vitals/I&O's: Vital Signs Temp Pulse Resp BP Pulse Ox 96.6 F L 58 L 22 H 152/65 H 91 01/15/18 15:45 01/15/18 15:45 01/15/18 15:45 01/15/18 15:45 01/15/18 15:45 Oxygen Flow Rate (L/min) 97 Oxygen Delivery Method Room Air Weight: 104.383 kg Body Mass Index (BMI) 42.0 Finger Stick Blood Glucose 117 Intake and Output for Last 24 Hours 01/14/18 01/15/18 01/16/18 23:59 23:59 23:59 Intake Total 480 / 480 720 / 720 Balance 480 / 480 720 / 720 Laboratory Results 01/15/18 13:55: POC Glucose 128 H 01/15/18 16:47: POC Glucose 195 H 01/15/18 21:13: POC Glucose 146 H 01/16/18 06:21: POC Glucose 113 H 01/16/18 06:36: PT 18.1 H, INR 1.5 01/16/18 10:02: POC Glucose 134 H Past Medical History Past Medical History (Chronic Problems): Chronic Problems (Last Reviewed 01/09/18 @ 14:08 by Kari Womack) Edema (Chronic) Atrial fibrillation (Chronic) Sleep apnea (Chronic) GERD (gastroesophageal reflux disease) (Chronic) Insomnia (Chronic) Neuropathic pain (Chronic) Personal history of malignant neoplasm of other sites of lip, oral cavity, and pharynx (Chronic) Personal history of skin cancer (Chronic) Asthma (Chronic) Obesity (Chronic) Atrial enlargement, left (Chronic) BMI 40.0-44.9, adult (Chronic) Chronic diastolic (congestive) heart failure (Chronic) Diastolic dysfunction (Chronic) Sinus bradycardia (Chronic) Fatigue (Chronic) Long-term use of high-risk medication (Chronic) Bilateral lower extremity edema (Chronic) History of cardioversion (Chronic ~10/01/16) H/O right and left heart catheterization (Chronic ~05/15/15) H/O basal cell carcinoma excision (Chronic) Recurrent basal cell carcinoma following excision (Chronic) Persistent atrial fibrillation (Chronic) Chronic diastolic heart failure (Chronic) FCI (current) use of anticoagulants (Chronic) HTN (hypertension) (Chronic) HLD (hyperlipidemia) (Chronic) Diabetes mellitus (Chronic) COPD (chronic obstructive pulmonary disease) (Chronic) NICKOLAS (obstructive sleep apnea) (Chronic) Morbid obesity (Chronic) Basal cell carcinoma of face (Chronic) Left face-has had 2 surgeries so far the first in February of 2015 Medical History: Medical History (Last Reviewed 01/09/18 @ 14:08 by Kari Womack) Asthma (Chronic) J45.909 Obesity (Chronic) E66.9 Atrial enlargement, left (Chronic) I51.7 BMI 40.0-44.9, adult (Chronic) Z68.41 History of syncope (Acute) Z87.898 Chronic diastolic (congestive) heart failure (Chronic) I50.32 Diastolic dysfunction (Chronic) I51.9 Sinus bradycardia (Chronic) R00.1 Fatigue (Chronic) R53.83 Long-term use of high-risk medication (Chronic) Z79.899 Syncope (Acute) R55 Bilateral lower extremity edema (Chronic) R60.0 Recurrent basal cell carcinoma following excision (Chronic) C44.91 Persistent atrial fibrillation (Chronic) I48.1 Chronic diastolic heart failure (Chronic) I50.32 FCI (current) use of anticoagulants (Chronic) Z79.01 HTN (hypertension) (Chronic) I10 HLD (hyperlipidemia) (Chronic) E78.5 Diabetes mellitus (Chronic) E11.9 COPD (chronic obstructive pulmonary disease) (Chronic) J44.9 NICKOLAS (obstructive sleep apnea) (Chronic) G47.33 Morbid obesity (Chronic) E66.01 Basal cell carcinoma of face (Chronic) C44.310 Left face-has had 2 surgeries so far the first in February of 2015 Allergies ampicillin Allergy (Severe, Verified 01/09/18 14:07) Anaphylaxis hydrocodone bitartrate [From Vicodin] Allergy (Severe, Verified 01/09/18 14:07) Itching Penicillins Allergy (Severe, Verified 01/09/18 14:07) Anaphylaxis clarithromycin [From Biaxin] Allergy (Verified 01/09/18 14:07) Rash Red and itchy venom-honey bee [bee venom (honey bee)] Allergy (Verified 01/09/18 14:07) Nausea/Vom/Diarrhea Home Medications: Ambulatory Orders Medication Instructions Recorded Calcium Carbonate [Calcium] 500 mg PO BID 04/13/15 Diazepam [Valium] 10 mg PO TID 04/13/15 Metformin HCl [Glucophage] 1,000 mg PO QHS 04/13/15 Metformin HCl [Glucophage] 500 mg PO BREAKFAST 04/13/15 Omeprazole [Prilosec] 40 mg PO DAILY 04/13/15 traZODone [Desyrel] 50 mg PO QHS 04/13/15 Tizanidine HCl [Zanaflex] 2 mg PO TID 05/13/15 Oxycodone HCl/Acetaminophen 7.5 mg PO TID 07/20/16 [Percocet 10-325 mg Tablet] Albuterol Inhaler [Ventolin Hfa] 2 puff INHALATION Q4H PRN PRN #1 08/14/16 inhaler Gabapentin [Neurontin] 600 mg PO TID 01/26/17 atorvastatin 20 mg tablet 20 mg PO QHS tab 03/09/17 lisinopril 20 mg tablet 20 mg PO QDAY 03/09/17 insulin NPH isophane U- 100 human 18 unit SC QPM 04/18/17 100 unit/mL subcutaneous suspension insulin lispro (U- 100) 100 24 unit SC QAM 04/18/17 unit/mL subcutaneous solution Furosemide 40 mg PO TID 08/03/17 Insulin Lispro [Humalog] 10 unit SC LUNCH 08/03/17 Insulin Lispro [Humalog] 15 unit SQ DINNER 08/03/17 Insulin NPH Human [Humulin N Pen] 10 units SC DAILY@0730 08/03/17 warfarin 10 mg tablet 10 mg PO SUMOFRSA #30 tab 10/03/17 Biotin 1 tab PO DAILY 11/18/17 Diphenoxylate/Atrop [Lomotil] 1 tab PO Q6H PRN PRN 11/18/17 Folic Acid 0.8 mg PO DAILY 11/18/17 Ipratropium [place] 0.06% 2 spray NASAL BID 11/18/17 [ATROVENT NASAL SPRAY] Vitamin B12 2,000 unit PO DAILY 11/18/17 Amlodipine Besylate [Norvasc] 5 mg PO QDAY 12/23/17 Aspirin [Aspirin, Baby] 81 mg PO DAILY@0800 12/23/17 Carvedilol [Coreg (Beta Randall)] 6.25 mg PO BID 12/23/17 Cetirizine HCl [Zyrtec] 10 mg PO DAILY 12/23/17 Ferrous Sulfate 325 mg PO DAILY@0800 12/23/17 Flecainide Acetate 150 mg PO Q12H 12/23/17 Metolazone [Zaroxolyn] 2.5 mg PO .COMPLEX 12/23/17 Potassium Chloride [K-Dur] 40 meq PO QDAY 12/23/17 Warfarin [Coumadin] 7.5 mg PO TUWETH 12/23/17 Surgical History: Surgical History (Last Reviewed 01/09/18 @ 14:08 by Kari Womack) History of facial surgery (Resolved) Z98.890 History of tonsillectomy (Resolved) Z98.890, Z90.89 History of bilateral knee replacement (Resolved) Z98.890, Z96.653 History of cataract extraction (Resolved) Z98.49 History of cardioversion (Chronic) Onset Date: ~10/01/16 Z98.890 H/O right and left heart catheterization (Chronic) Onset Date: ~05/15/15 Z98.890 H/O basal cell carcinoma excision (Chronic) Z98.890, Z85.828 Surgical History: total knee arthroplasty - Bilateral, tonsillectomy, - - Surgeries to the left face for basal cell carcinoma involving the left lower eyelid and then plastic repair, recent 11/2017 surgical interventions w/ I+D MRSA abscess, partial ostectomy anterior mandible. Psychiatric History: Anxiety, Depression SEAMLESS TUBE DRAWER History: No pertinent SEAMLESS TUBE DRAWER history Lives: Alone Smoking Status: Never smoker Tobacco Use: Non-smoker Alcohol: None Drugs: None - *Family History Paternal Family History: Family History (Last Reviewed 01/09/18 @ 14:08 by Kari Womack) Mother Hypertension Diabetes Father Heart disease Hypertension Diabetes Sister Hypertension Brother Diabetes History Items: Cancer, Diabetes, Hypertension Maternal Family History: Family History (Last Reviewed 01/09/18 @ 14:08 by Kari Womack) Mother Hypertension Diabetes Father Heart disease Hypertension Diabetes Sister Hypertension Brother Diabetes History Items: Heart Disease, Hypertension Sibling Family History: Family History (Last Reviewed 01/09/18 @ 14:08 by Kari Womack) Mother Hypertension Diabetes Father Heart disease Hypertension Diabetes Sister Hypertension Brother Diabetes History Items: Heart Disease Patient Problems: Active and Suspected Problems (Last Reviewed 01/09/18 @ 14:08 by Kari Womack) Wound abscess (Acute) Squamous cell carcinoma, face (Acute) - Physical Exam Vital Signs Temp Pulse Resp BP Pulse Ox 96.6 F L 58 L 22 H 152/65 H 91 01/15/18 15:45 01/15/18 15:45 01/15/18 15:45 01/15/18 15:45 01/15/18 15:45 Oxygen Flow Rate (L/min) 97 Oxygen Delivery Method Room Air Weight: 104.383 kg Body Mass Index (BMI) 42.0 Finger Stick Blood Glucose 117 Intake and Output for Last 24 Hours 01/14/18 01/15/18 01/16/18 23:59 23:59 23:59 Intake Total 480 / 480 720 / 720 Balance 480 / 480 720 / 720 Laboratory Tests Past 24 Hrs 01/16/18 06:36 PT 18.1 H INR 1.5 POC Glucose 01/16/18 01/16/18 01/15/18 10:02 06:21 21:13 POC Glucose 134 H 113 H 146 H 01/15/18 01/15/18 16:47 13:55 POC Glucose 195 H 128 H Assessment/Plan All Active Problems (Last Reviewed 01/09/18 @ 14:08 by Kari Womack) Wound abscess (Acute) Squamous cell carcinoma, face (Acute) Osteomyelitis of mandible (Acute) Abscess of chin (Acute) Methicillin resistant Staphylococcus aureus infection (Acute) Facial cellulitis (Acute) History of facial surgery (Resolved) History of tonsillectomy (Resolved) History of bilateral knee replacement (Resolved) History of cataract extraction (Resolved) History of syncope (Acute) Syncope (Acute) Acute asthmatic bronchitis (Resolved) Acute exacerbation of CHF (congestive heart failure) (Resolved) Atrial fibrillation with RVR (Resolved) Paroxysmal A-fib (Resolved) SOB (shortness of breath) (Resolved)
[2018-01-16 13:55] LABS: Bedside Glucose 205 mg/dL (70-110)
--- NOTE | 2018-01-16 14:05 | CASEMGMT ---
Insurance Clinical information sent. Pending continued stay approval at this time. Auth#[id number] Ritika WEINBERG, ROAD INSPECTOR
--- NOTE | 2018-01-16 14:38 | CASEMGMT ---
Social Work Spoke with resident and resident sister, Willa. Resident and Willa reporting to have decided for resident to transition to [place], [place], which is closer to Willa. Willa reporting that 1st choice is : [facility] P: [phone]; F: [phone]. 2nd choice: [facility] P: [phone]. 3rd choice: [facility] P: [phone]. Resident agreeable to above facilities and referral being made in order of choice. This social problems specialist also broached topic of transportation for resident. Willa not sure about this at this time. This social problems specialist informing Willa that this social problems specialist is able to look into transportation companies but that chances are the companies will not travel as far as [place], [place]. Willa planning to discuss transportation further with resident and resident brother, Brijesh. Therapy reporting that resident would be able to tolerate transportation via private vehicle, if needed. Support given. Telephone call to Roma Gusman. This social problems specialist making referral and faxing clinical information. Roma to get back to this social problems specialist. No discharge date set at this time. Will continue to follow. Ritika Galarza, DRUM STENCILER, STONE SPLITTER
--- NOTE | 2018-01-16 15:05 | PCM.PN.ID ---
Patient Problems: Active and Suspected Problems (Last Reviewed 01/09/18 @ 14:08 by Kari Womack) Wound abscess (Acute) Squamous cell carcinoma, face (Acute) Subjective: Not feeling any different. Still sore chin, mild nausea. No fever. - Physical Exam General: Alert, Cooperative, No apparent distress Lungs: Clear to auscultation, Normal air movement Cardiovascular: Regular rate, Regular Rhythm Abdomen: Soft, Non Tender, Non-Distended Skin: Ulcer/ Wound - reviewed photo of chin Vital Signs Temp Pulse Resp BP Pulse Ox 96.6 F L 58 L 22 H 152/65 H 91 01/15/18 15:45 01/15/18 15:45 01/15/18 15:45 01/15/18 15:45 01/15/18 15:45 Oxygen Flow Rate (L/min) 97 Oxygen Delivery Method Room Air Weight: 104.383 kg Body Mass Index (BMI) 42.0 Finger Stick Blood Glucose 117 Intake and Output for Last 24 Hours 01/14/18 01/15/18 01/16/18 23:59 23:59 23:59 Intake Total 480 / 480 720 / 720 Balance 480 / 480 720 / 720 Laboratory Tests Past 24 Hrs 01/16/18 06:36 PT 18.1 H INR 1.5 POC Glucose 01/16/18 01/16/18 01/16/18 13:50 10:02 06:21 POC Glucose 205 H 134 H 113 H 01/15/18 01/15/18 21:13 16:47 POC Glucose 146 H 195 H Medical Necessity - Tobacco Use Smoking Status: Never smoker Tobacco Use: Non-smoker Route of nutrition/ use of supplements: [] Nutritional Intake: [] IV Site: [] Muro Catheter: [] - Assessment/Plan Antibiotics: [] Assessment/Plan: [] Active and Suspected Problems (Last Reviewed 12/04/17 @ 01:53 by Sanjay Rhodes MD) Wound abscess (Acute) Squamous cell carcinoma, face (Acute) Wound relatively stable, but only minimal improvement in size, still with pain, redness, and drainage. Had bone biopsy previously that was negative for infection but (+) for squamous cell cancer. Started iv vanc 01/10. Repeat wound cx with CoNS, GPR, and strep, consistent with oral/skin rosana. No MRSA. 01/12 added clinda. Senior Living plan is difficult if she continues to re-contaminate her wound. It may not heal due to underlying cancer, but it doesn't sound like surgery will happen until infection is gone, but it keeps on getting re-infected because it won't heal. May have to plan on continuing iv vanc until surgeon feels comfortable with operating. Will follow.
[2018-01-16 15:15] VITALS: BP 139/66; PULSE 74; RESP 18; TEMP 35.6; O2SAT 95
--- NOTE | 2018-01-16 15:24 | CASEMGMT ---
Social Work Telephone call from Raquel Lebron. Raquel reporting to be able to look into a one time contract with [facility] and to not currently have a bed but to possibly have an opening later this week. Raquel to contact resident sister, Willa. Will continue to follow. Ritika Galarza, STREET OPENINGS INSPECTOR, DENTAL LABORATORY TECHNICIAN APPRENTICE
[2018-01-16 17:01] LABS: Bedside Glucose 132 mg/dL (70-110)
[2018-01-16 20:27] LABS: Vancomycin, Trough Level 22.8 ug/mL (5.0-15.0)
--- NOTE | 2018-01-16 20:28 | PCM.TCUNOT ---
Subjective: Resident seen in room, she continues to have overall feeling of malaise. We had beth discussion regarding her DPOA sister Willa. Willa has bluntly told myself, our director of social services, and nursing staff she is not satisfied with resident's care. Willa would like to transfer resident to a facility closer to her, but due to lack of transportation, Willa would have to transport Katelynn in her own vehicle, and Willa is reluctant to contaminate her vehicle with Katelynn's history of MRSA. I explained to Katelynn that being one's DPOA does not mean they make decisions for you, that Willa's DPOA only comes into effect if Katelynn was incapacitated and unable to speak for herself. I let Katelynn know I will do whatever Katelynn wants, if she wants to stay at [facility], she is welcome to stay, and if she wants to transfer to facility closer [place], she is welcome to do that as well, but it should be Katelynn's decision. Vitals/I&O's: Vital Signs Temp Pulse Resp BP Pulse Ox 96.1 F L 74 18 139/66 H 95 01/16/18 15:15 01/16/18 15:15 01/16/18 15:15 01/16/18 15:15 01/16/18 15:15 Oxygen Flow Rate (L/min) 97 Oxygen Delivery Method Room Air Weight: 104.383 kg Body Mass Index (BMI) 42.0 Finger Stick Blood Glucose 117 Intake and Output for Last 24 Hours 01/14/18 01/15/18 01/16/18 23:59 23:59 23:59 Intake Total 480 / 480 720 / 720 120 / 120 Balance 480 / 480 720 / 720 120 / 120 Laboratory Results 01/15/18 21:13: POC Glucose 146 H 01/16/18 06:21: POC Glucose 113 H 01/16/18 06:36: PT 18.1 H, INR 1.5 01/16/18 10:02: POC Glucose 134 H 01/16/18 13:50: POC Glucose 205 H 01/16/18 16:54: POC Glucose 132 H 01/16/18 19:28: Vancomycin Trough 22.8 H Past Medical History Past Medical History (Chronic Problems): Chronic Problems (Last Reviewed 01/09/18 @ 14:08 by Kari Womack) Edema (Chronic) Atrial fibrillation (Chronic) Sleep apnea (Chronic) GERD (gastroesophageal reflux disease) (Chronic) Insomnia (Chronic) Neuropathic pain (Chronic) Personal history of malignant neoplasm of other sites of lip, oral cavity, and pharynx (Chronic) Personal history of skin cancer (Chronic) Asthma (Chronic) Obesity (Chronic) Atrial enlargement, left (Chronic) BMI 40.0-44.9, adult (Chronic) Chronic diastolic (congestive) heart failure (Chronic) Diastolic dysfunction (Chronic) Sinus bradycardia (Chronic) Fatigue (Chronic) Long-term use of high-risk medication (Chronic) Bilateral lower extremity edema (Chronic) History of cardioversion (Chronic ~10/01/16) H/O right and left heart catheterization (Chronic ~05/15/15) H/O basal cell carcinoma excision (Chronic) Recurrent basal cell carcinoma following excision (Chronic) Persistent atrial fibrillation (Chronic) Chronic diastolic heart failure (Chronic) correction (current) use of anticoagulants (Chronic) HTN (hypertension) (Chronic) HLD (hyperlipidemia) (Chronic) Diabetes mellitus (Chronic) COPD (chronic obstructive pulmonary disease) (Chronic) NICKOLAS (obstructive sleep apnea) (Chronic) Morbid obesity (Chronic) Basal cell carcinoma of face (Chronic) Left face-has had 2 surgeries so far the first in February of 2015 Medical History: Medical History (Last Reviewed 01/09/18 @ 14:08 by Kari Womack) Asthma (Chronic) J45.909 Obesity (Chronic) E66.9 Atrial enlargement, left (Chronic) I51.7 BMI 40.0-44.9, adult (Chronic) Z68.41 History of syncope (Acute) Z87.898 Chronic diastolic (congestive) heart failure (Chronic) I50.32 Diastolic dysfunction (Chronic) I51.9 Sinus bradycardia (Chronic) R00.1 Fatigue (Chronic) R53.83 Long-term use of high-risk medication (Chronic) Z79.899 Syncope (Acute) R55 Bilateral lower extremity edema (Chronic) R60.0 Recurrent basal cell carcinoma following excision (Chronic) C44.91 Persistent atrial fibrillation (Chronic) I48.1 Chronic diastolic heart failure (Chronic) 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 (Chronic) Z79.01 HTN (hypertension) (Chronic) I10 HLD (hyperlipidemia) (Chronic) E78.5 Diabetes mellitus (Chronic) E11.9 COPD (chronic obstructive pulmonary disease) (Chronic) J44.9 NICKOLAS (obstructive sleep apnea) (Chronic) G47.33 Morbid obesity (Chronic) E66.01 Basal cell carcinoma of face (Chronic) C44.310 Left face-has had 2 surgeries so far the first in February of 2015 Allergies ampicillin Allergy (Severe, Verified 01/09/18 14:07) Anaphylaxis hydrocodone bitartrate [From Vicodin] Allergy (Severe, Verified 01/09/18 14:07) Itching Penicillins Allergy (Severe, Verified 01/09/18 14:07) Anaphylaxis clarithromycin [From Biaxin] Allergy (Verified 01/09/18 14:07) Rash Red and itchy venom-honey bee [bee venom (honey bee)] Allergy (Verified 01/09/18 14:07) Nausea/Vom/Diarrhea Home Medications: Ambulatory Orders Medication Instructions Recorded Calcium Carbonate [Calcium] 500 mg PO BID 04/13/15 Diazepam [Valium] 10 mg PO TID 04/13/15 Metformin HCl [Glucophage] 1,000 mg PO QHS 04/13/15 Metformin HCl [Glucophage] 500 mg PO BREAKFAST 04/13/15 Omeprazole [Prilosec] 40 mg PO DAILY 04/13/15 traZODone [Desyrel] 50 mg PO QHS 04/13/15 Tizanidine HCl [Zanaflex] 2 mg PO TID 05/13/15 Oxycodone HCl/Acetaminophen 7.5 mg PO TID 07/20/16 [Percocet 10-325 mg Tablet] Albuterol Inhaler [Ventolin Hfa] 2 puff INHALATION Q4H PRN PRN #1 08/14/16 inhaler Gabapentin [Neurontin] 600 mg PO TID 01/26/17 atorvastatin 20 mg tablet 20 mg PO QHS tab 03/09/17 lisinopril 20 mg tablet 20 mg PO QDAY 03/09/17 insulin NPH isophane U- 100 human 18 unit SC QPM 04/18/17 100 unit/mL subcutaneous suspension insulin lispro (U- 100) 100 24 unit SC QAM 04/18/17 unit/mL subcutaneous solution Furosemide 40 mg PO TID 08/03/17 Insulin Lispro [Humalog] 10 unit SC LUNCH 08/03/17 Insulin Lispro [Humalog] 15 unit SQ DINNER 08/03/17 Insulin NPH Human [Humulin N Pen] 10 units SC DAILY@0730 08/03/17 warfarin 10 mg tablet 10 mg PO SUMOFRSA #30 tab 10/03/17 Biotin 1 tab PO DAILY 11/18/17 Diphenoxylate/Atrop [Lomotil] 1 tab PO Q6H PRN PRN 11/18/17 Folic Acid 0.8 mg PO DAILY 11/18/17 Ipratropium Thornton 0.06% 2 spray NASAL BID 11/18/17 [ATROVENT NASAL SPRAY] Vitamin B12 2,000 unit PO DAILY 11/18/17 Amlodipine Besylate [Norvasc] 5 mg PO QDAY 12/23/17 Aspirin [Aspirin, Baby] 81 mg PO DAILY@0800 12/23/17 Carvedilol [Coreg (Beta Randall)] 6.25 mg PO BID 12/23/17 Cetirizine HCl [Zyrtec] 10 mg PO DAILY 12/23/17 Ferrous Sulfate 325 mg PO DAILY@0800 12/23/17 Flecainide Acetate 150 mg PO Q12H 12/23/17 Metolazone [Zaroxolyn] 2.5 mg PO .COMPLEX 12/23/17 Potassium Chloride [K-Dur] 40 meq PO QDAY 12/23/17 Warfarin [Coumadin] 7.5 mg PO TUWE12/23/17 Surgical History: Surgical History (Last Reviewed 01/09/18 @ 14:08 by Kari Womack) History of facial surgery (Resolved) Z98.890 History of tonsillectomy (Resolved) Z98.890, Z90.89 History of bilateral knee replacement (Resolved) Z98.890, Z96.653 History of cataract extraction (Resolved) Z98.49 History of cardioversion (Chronic) Onset Date: ~10/01/16 Z98.890 H/O right and left heart catheterization (Chronic) Onset Date: ~05/15/15 Z98.890 H/O basal cell carcinoma excision (Chronic) Z98.890, Z85.828 Surgical History: total knee arthroplasty - Bilateral, tonsillectomy, - - Surgeries to the left face for basal cell carcinoma involving the left lower eyelid and then plastic repair, recent 11/2017 surgical interventions w/ I+D MRSA abscess, partial ostectomy anterior mandible. 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 Lives: Alone Smoking Status: Never smoker Tobacco Use: Non-smoker Alcohol: None Drugs: None - *Family History Paternal Family History: Family History (Last Reviewed 01/09/18 @ 14:08 by Kari Womack) Mother Hypertension Diabetes Father Heart disease Hypertension Diabetes Sister Hypertension Brother Diabetes History Items: Cancer, Diabetes, Hypertension Maternal Family History: Family History (Last Reviewed 01/09/18 @ 14:08 by Kari Womack) Mother Hypertension Diabetes Father Heart disease Hypertension Diabetes Sister Hypertension Brother Diabetes History Items: Heart Disease, Hypertension Sibling Family History: Family History (Last Reviewed 01/09/18 @ 14:08 by Kari Womack) Mother Hypertension Diabetes Father Heart disease Hypertension Diabetes Sister Hypertension Brother Diabetes History Items: Heart Disease Review of Systems Constitutional: Reports: Malaise. Denies: Chills, Fever, Weight Change HEENT: Denies: Head Aches, Sinus Congestion, Sinus Drainage Cardiovascular: Denies: Chest Pain, Palpitations Respiratory: Denies: Cough, Shortness of breath at rest, Sputum production Gastrointestinal: Denies: Abdominal Pain, Nausea, Vomiting Genitourinary: Denies: Dysuria Musculoskeletal: Denies: Joint Pain, Joint Tenderness Skin: Denies: Rash, Wounds Neurological: Denies: Numbness, Tingling, Focal weakness Psychiatric: Denies: Anxiety, Depression, Homicidal Ideations, Suicidal Ideations Hematologic/ Lymphatic: Denies: Easy Bruising, Easy Bleeding Patient Problems: Active and Suspected Problems (Last Reviewed 01/09/18 @ 14:08 by Kari Womack) Wound abscess (Acute) Squamous cell carcinoma, face (Acute) - Physical Exam General: Alert, Oriented x3, Cooperative HEENT: Atraumatic, PERRLA, EOMI, Normocephalic Neck: Supple, No JVD, Negative Carotid Bruits Lungs: Clear to auscultation, Normal air movement Cardiovascular: Regular rate, No murmurs Abdomen: Bowel Sounds Present, Soft, Non Tender Extremities: No edema, Capillary Refill Less than 3 Seconds Skin: No rashes, No breakdown, Ulcer/ Wound - Chin. Musculoskeletal: No Tenderness to Palpation of Joints or Extremities Neurological: Cranial nerves II-XII grossly intact Psych/Mental Status: Normal Affect, Appropriate Vital Signs Temp Pulse Resp BP Pulse Ox 96.1 F L 74 18 139/66 H 95 01/16/18 15:15 01/16/18 15:15 01/16/18 15:15 01/16/18 15:15 01/16/18 15:15 Oxygen Flow Rate (L/min) 97 Oxygen Delivery Method Room Air Weight: 104.383 kg Body Mass Index (BMI) 42.0 Finger Stick Blood Glucose 117 Intake and Output for Last 24 Hours 01/14/18 01/15/18 01/16/18 23:59 23:59 23:59 Intake Total 480 / 480 720 / 720 120 / 120 Balance 480 / 480 720 / 720 120 / 120 Laboratory Tests Past 24 Hrs 01/16/18 01/16/18 06:36 19:28 PT 18.1 H INR 1.5 Vancomycin Trough 22.8 H POC Glucose 01/16/18 01/16/18 01/16/18 16:54 13:50 10:02 POC Glucose 132 H 205 H 134 H 01/16/18 01/15/18 06:21 21:13 POC Glucose 113 H 146 H Assessment/Plan All Active Problems (Last Reviewed 01/09/18 @ 14:08 by Kari Womack) Wound abscess (Acute) Squamous cell carcinoma, face (Acute) Osteomyelitis of mandible (Acute) Abscess of chin (Acute) Methicillin resistant Staphylococcus aureus infection (Acute) Facial cellulitis (Acute) History of facial surgery (Resolved) History of tonsillectomy (Resolved) History of bilateral knee replacement (Resolved) History of cataract extraction (Resolved) History of syncope (Acute) Syncope (Acute) Acute asthmatic bronchitis (Resolved) Acute exacerbation of CHF (congestive heart failure) (Resolved) Atrial fibrillation with RVR (Resolved) Paroxysmal A-fib (Resolved) SOB (shortness of breath) (Resolved) 67 year old female with below past medical history significant for squamous cell cancer of face, hospitalized for chin wound infection, treated with intravenous antibiotics, need outpatient surgery to excise squamous cell cancer, admitted to TCU with debility, here for rehabilitation, strengthening, prior to discharge home alone, consider retirement care placement. Debility - PT/OT. Pain - Tylenol 1000MG Q8H PRN mild pain, Oxycodone 10MG Q2H PRN severe pain. Bowel - Miralax 17GM daily, Senna/colace 1 tablets BID, Dulcolax 10MG PO daily PRN. Pneumonia vaccination - Administer Prevnar 13 and/or Pneumovax 23 as necessary. DVT prophylaxis - Not necessary, already on warfarin. Shortness of breath - Albuterol 2 puffs Q4H PRN. Chronic diastolic heart failure - Lasix 60MG BID. Coronary artery disease - Aspirin 81MG daily. Hyperlipidemia - Atorvastatin 20MG QHS. Atrial Fibrillation - Flecainide 150MG Q12H, Warfarin 3MG daily, restarted after bleeding stopped, follow INR. Neuropathic pain - Gabapentin 600MG BID. Diabetes Mellitus II - Metformin 500MG BID, Lantus 5 units BID. Allergic rhinitis - Atrovent 2 sprays BID. GERD - Pantoprazole 40MG daily. Hypokalemia - KCL 40MEQ daily. Insomnia - Trazodone 50MG QHS. Sore throat - BMX as needed. Chin infection - Clindamycin 300MG TID, Vancomycin 1.5GM IV Q24H, appreciate Dr. Henderson input. Otitis Externa - Cortisporin OTIC x 10 days, will discontinue. Tinea Corporis - Nystatin powder BID.
--- NOTE | 2018-01-16 20:33 | PN_ITS ---
Subjective: Resident seen in room, she continues to have overall feeling of malaise. We had beth discussion regarding her DPOA sister Willa. Willa has bluntly told myself, our social economist, and nursing staff she is not satisfied with resident's care. Willa would like to transfer resident to a facility closer to her, but due to lack of transportation, Willa would have to transport Katelynn in her own vehicle, and Willa is reluctant to contaminate her vehicle with Katelynn's history of MRSA. I explained to Katelynn that being one's DPOA does not mean they make decisions for you, that Willa's DPOA only comes into effect if Katelynn was incapacitated and unable to speak for herself. I let Katelynn know I will do whatever Katelynn wants, if she wants to stay at [facility], she is welcome to stay, and if she wants to transfer to facility closer Willa, she is welcome to do that as well, but it should be Katelynn's decision. Vitals/I&O's: Vital Signs Temp Pulse Resp BP Pulse Ox 96.1 F L 74 18 139/66 H 95 01/16/18 15:15 01/16/18 15:15 01/16/18 15:15 01/16/18 15:15 01/16/18 15:15 Oxygen Flow Rate (L/min) 97 Oxygen Delivery Method Room Air Weight: 104.383 kg Body Mass Index (BMI) 42.0 Finger Stick Blood Glucose 117 Intake and Output for Last 24 Hours 01/14/18 01/15/18 01/16/18 23:59 23:59 23:59 Intake Total 480 / 480 720 / 720 120 / 120 Balance 480 / 480 720 / 720 120 / 120 Laboratory Results 01/15/18 21:13: POC Glucose 146 H 01/16/18 06:21: POC Glucose 113 H 01/16/18 06:36: PT 18.1 H, INR 1.5 01/16/18 10:02: POC Glucose 134 H 01/16/18 13:50: POC Glucose 205 H 01/16/18 16:54: POC Glucose 132 H 01/16/18 19:28: Vancomycin Trough 22.8 H Past Medical History Past Medical History (Chronic Problems): Chronic Problems (Last Reviewed 01/09/18 @ 14:08 by Kari Womack) Edema (Chronic) Atrial fibrillation (Chronic) Sleep apnea (Chronic) GERD (gastroesophageal reflux disease) (Chronic) Insomnia (Chronic) Neuropathic pain (Chronic) Personal history of malignant neoplasm of other sites of lip, oral cavity, and pharynx (Chronic) Personal history of skin cancer (Chronic) Asthma (Chronic) Obesity (Chronic) Atrial enlargement, left (Chronic) BMI 40.0-44.9, adult (Chronic) Chronic diastolic (congestive) heart failure (Chronic) Diastolic dysfunction (Chronic) Sinus bradycardia (Chronic) Fatigue (Chronic) Long-term use of high-risk medication (Chronic) Bilateral lower extremity edema (Chronic) History of cardioversion (Chronic ~10/01/16) H/O right and left heart catheterization (Chronic ~05/15/15) H/O basal cell carcinoma excision (Chronic) Recurrent basal cell carcinoma following excision (Chronic) Persistent atrial fibrillation (Chronic) Chronic diastolic heart failure (Chronic) group home (current) use of anticoagulants (Chronic) HTN (hypertension) (Chronic) HLD (hyperlipidemia) (Chronic) Diabetes mellitus (Chronic) COPD (chronic obstructive pulmonary disease) (Chronic) NICKOLAS (obstructive sleep apnea) (Chronic) Morbid obesity (Chronic) Basal cell carcinoma of face (Chronic) Left face-has had 2 surgeries so far the first in February of 2015 Medical History: Medical History (Last Reviewed 01/09/18 @ 14:08 by Kari Womack) Asthma (Chronic) J45.909 Obesity (Chronic) E66.9 Atrial enlargement, left (Chronic) I51.7 BMI 40.0-44.9, adult (Chronic) Z68.41 History of syncope (Acute) Z87.898 Chronic diastolic (congestive) heart failure (Chronic) I50.32 Diastolic dysfunction (Chronic) I51.9 Sinus bradycardia (Chronic) R00.1 Fatigue (Chronic) R53.83 Long-term use of high-risk medication (Chronic) Z79.899 Syncope (Acute) R55 Bilateral lower extremity edema (Chronic) R60.0 Recurrent basal cell carcinoma following excision (Chronic) C44.91 Persistent atrial fibrillation (Chronic) I48.1 Chronic diastolic heart failure (Chronic) I50.32 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) use of anticoagulants (Chronic) Z79.01 HTN (hypertension) (Chronic) I10 HLD (hyperlipidemia) (Chronic) E78.5 Diabetes mellitus (Chronic) E11.9 COPD (chronic obstructive pulmonary disease) (Chronic) J44.9 NICKOLAS (obstructive sleep apnea) (Chronic) G47.33 Morbid obesity (Chronic) E66.01 Basal cell carcinoma of face (Chronic) C44.310 Left face-has had 2 surgeries so far the first in February of 2015 Allergies ampicillin Allergy (Severe, Verified 01/09/18 14:07) Anaphylaxis hydrocodone bitartrate [From Vicodin] Allergy (Severe, Verified 01/09/18 14:07) Itching Penicillins Allergy (Severe, Verified 01/09/18 14:07) Anaphylaxis clarithromycin [From Biaxin] Allergy (Verified 01/09/18 14:07) Rash Red and itchy venom-honey bee [bee venom (honey bee)] Allergy (Verified 01/09/18 14:07) Nausea/Vom/Diarrhea Home Medications: Ambulatory Orders Medication Instructions Recorded Calcium Carbonate [Calcium] 500 mg PO BID 04/13/15 Diazepam [Valium] 10 mg PO TID 04/13/15 Metformin HCl [Glucophage] 1,000 mg PO QHS 04/13/15 Metformin HCl [Glucophage] 500 mg PO BREAKFAST 04/13/15 Omeprazole [Prilosec] 40 mg PO DAILY 04/13/15 traZODone [Desyrel] 50 mg PO QHS 04/13/15 Tizanidine HCl [Zanaflex] 2 mg PO TID 05/13/15 Oxycodone HCl/Acetaminophen 7.5 mg PO TID 07/20/16 [Percocet 10-325 mg Tablet] Albuterol Inhaler [Ventolin Hfa] 2 puff INHALATION Q4H PRN PRN #1 08/14/16 inhaler Gabapentin [Neurontin] 600 mg PO TID 01/26/17 atorvastatin 20 mg tablet 20 mg PO QHS tab 03/09/17 lisinopril 20 mg tablet 20 mg PO QDAY 03/09/17 insulin NPH isophane U- 100 human 18 unit SC QPM 04/18/17 100 unit/mL subcutaneous suspension insulin lispro (U- 100) 100 24 unit SC QAM 04/18/17 unit/mL subcutaneous solution Furosemide 40 mg PO TID 08/03/17 Insulin Lispro [Humalog] 10 unit SC LUNCH 08/03/17 Insulin Lispro [Humalog] 15 unit SQ DINNER 08/03/17 Insulin NPH Human [Humulin N Pen] 10 units SC DAILY@0730 08/03/17 warfarin 10 mg tablet 10 mg PO SUMOFRSA #30 tab 10/03/17 Biotin 1 tab PO DAILY 11/18/17 Diphenoxylate/Atrop [Lomotil] 1 tab PO Q6H PRN PRN 11/18/17 Folic Acid 0.8 mg PO DAILY 11/18/17 Ipratropium [place] 0.06% 2 spray NASAL BID 11/18/17 [ATROVENT NASAL SPRAY] Vitamin B12 2,000 unit PO DAILY 11/18/17 Amlodipine Besylate [Norvasc] 5 mg PO QDAY 12/23/17 Aspirin [Aspirin, Baby] 81 mg PO DAILY@0800 12/23/17 Carvedilol [Coreg (Beta Randall)] 6.25 mg PO BID 12/23/17 Cetirizine HCl [Zyrtec] 10 mg PO DAILY 12/23/17 Ferrous Sulfate 325 mg PO DAILY@0800 12/23/17 Flecainide Acetate 150 mg PO Q12H 12/23/17 Metolazone [Zaroxolyn] 2.5 mg PO .COMPLEX 12/23/17 Potassium Chloride [K-Dur] 40 meq PO QDAY 12/23/17 Warfarin [Coumadin] 7.5 mg PO TUWE12/23/17 Surgical History: Surgical History (Last Reviewed 01/09/18 @ 14:08 by Kari Womack) History of facial surgery (Resolved) Z98.890 History of tonsillectomy (Resolved) Z98.890, Z90.89 History of bilateral knee replacement (Resolved) Z98.890, Z96.653 History of cataract extraction (Resolved) Z98.49 History of cardioversion (Chronic) Onset Date: ~10/01/16 Z98.890 H/O right and left heart catheterization (Chronic) Onset Date: ~05/15/15 Z98.890 H/O basal cell carcinoma excision (Chronic) Z98.890, Z85.828 Surgical History: total knee arthroplasty - Bilateral, tonsillectomy, - - Surgeries to the left face for basal cell carcinoma involving the left lower eyelid and then plastic repair, recent 11/2017 surgical interventions w/ I+D MRSA abscess, partial ostectomy anterior mandible. 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: No pertinent DIAMOND SANDER history Lives: Alone Smoking Status: Never smoker Tobacco Use: Non-smoker Alcohol: None Drugs: None - *Family History Paternal Family History: Family History (Last Reviewed 01/09/18 @ 14:08 by Kari Womack) Mother Hypertension Diabetes Father Heart disease Hypertension Diabetes Sister Hypertension Brother Diabetes History Items: Cancer, Diabetes, Hypertension Maternal Family History: Family History (Last Reviewed 01/09/18 @ 14:08 by Kari Womack) Mother Hypertension Diabetes Father Heart disease Hypertension Diabetes Sister Hypertension Brother Diabetes History Items: Heart Disease, Hypertension Sibling Family History: Family History (Last Reviewed 01/09/18 @ 14:08 by Kari Womack) Mother Hypertension Diabetes Father Heart disease Hypertension Diabetes Sister Hypertension Brother Diabetes History Items: Heart Disease Review of Systems Constitutional: Reports: Malaise. Denies: Chills, Fever, Weight Change HEENT: Denies: Head Aches, Sinus Congestion, Sinus Drainage Cardiovascular: Denies: Chest Pain, Palpitations Respiratory: Denies: Cough, Shortness of breath at rest, Sputum production Gastrointestinal: Denies: Abdominal Pain, Nausea, Vomiting Genitourinary: Denies: Dysuria Musculoskeletal: Denies: Joint Pain, Joint Tenderness Skin: Denies: Rash, Wounds Neurological: Denies: Numbness, Tingling, Focal weakness Psychiatric: Denies: Anxiety, Depression, Homicidal Ideations, Suicidal Ideations Hematologic/ Lymphatic: Denies: Easy Bruising, Easy Bleeding Patient Problems: Active and Suspected Problems (Last Reviewed 01/09/18 @ 14:08 by Kari Womack) Wound abscess (Acute) Squamous cell carcinoma, face (Acute) - Physical Exam General: Alert, Oriented x3, Cooperative HEENT: Atraumatic, PERRLA, EOMI, Normocephalic Neck: Supple, No JVD, Negative Carotid Bruits Lungs: Clear to auscultation, Normal air movement Cardiovascular: Regular rate, No murmurs Abdomen: Bowel Sounds Present, Soft, Non Tender Extremities: No edema, Capillary Refill Less than 3 Seconds Skin: No rashes, No breakdown, Ulcer/ Wound - Chin. Musculoskeletal: No Tenderness to Palpation of Joints or Extremities Neurological: Cranial nerves II-XII grossly intact Psych/Mental Status: Normal Affect, Appropriate Vital Signs Temp Pulse Resp BP Pulse Ox 96.1 F L 74 18 139/66 H 95 01/16/18 15:15 01/16/18 15:15 01/16/18 15:15 01/16/18 15:15 01/16/18 15:15 Oxygen Flow Rate (L/min) 97 Oxygen Delivery Method Room Air Weight: 104.383 kg Body Mass Index (BMI) 42.0 Finger Stick Blood Glucose 117 Intake and Output for Last 24 Hours 01/14/18 01/15/18 01/16/18 23:59 23:59 23:59 Intake Total 480 / 480 720 / 720 120 / 120 Balance 480 / 480 720 / 720 120 / 120 Laboratory Tests Past 24 Hrs 01/16/18 01/16/18 06:36 19:28 PT 18.1 H INR 1.5 Vancomycin Trough 22.8 H POC Glucose 01/16/18 01/16/18 01/16/18 16:54 13:50 10:02 POC Glucose 132 H 205 H 134 H 01/16/18 01/15/18 06:21 21:13 POC Glucose 113 H 146 H Assessment/Plan All Active Problems (Last Reviewed 01/09/18 @ 14:08 by Kari Womack) Wound abscess (Acute) Squamous cell carcinoma, face (Acute) Osteomyelitis of mandible (Acute) Abscess of chin (Acute) Methicillin resistant Staphylococcus aureus infection (Acute) Facial cellulitis (Acute) History of facial surgery (Resolved) History of tonsillectomy (Resolved) History of bilateral knee replacement (Resolved) History of cataract extraction (Resolved) History of syncope (Acute) Syncope (Acute) Acute asthmatic bronchitis (Resolved) Acute exacerbation of CHF (congestive heart failure) (Resolved) Atrial fibrillation with RVR (Resolved) Paroxysmal A-fib (Resolved) SOB (shortness of breath) (Resolved) 67 year old female with below past medical history significant for squamous cell cancer of face, hospitalized for chin wound infection, treated with intravenous antibiotics, need outpatient surgery to excise squamous cell cancer, admitted to [facility]CU with debility, here for rehabilitation, strengthening, prior to discharge home alone, consider half-way care placement. * Debility - PT/OT. * Pain - Tylenol 1000MG Q8H PRN mild pain, Oxycodone 10MG Q2H PRN severe pain. * Bowel - Miralax 17GM daily, Senna/colace 1 tablets BID, Dulcolax 10MG PO daily PRN. * Pneumonia vaccination - Administer Prevnar 13 and/or Pneumovax 23 as necessary. * DVT prophylaxis - Not necessary, already on warfarin. * Shortness of breath - Albuterol 2 puffs Q4H PRN. * Chronic diastolic heart failure - Lasix 60MG BID. * Coronary artery disease - Aspirin 81MG daily. * Hyperlipidemia - Atorvastatin 20MG QHS. * Atrial Fibrillation - Flecainide 150MG Q12H, Warfarin 3MG daily, restarted after bleeding stopped, follow INR. * Neuropathic pain - Gabapentin 600MG BID. * Diabetes Mellitus II - Metformin 500MG BID, Lantus 5 units BID. * Allergic rhinitis - Atrovent 2 sprays BID. * GERD - Pantoprazole 40MG daily. * Hypokalemia - KCL 40MEQ daily. * Insomnia - Trazodone 50MG QHS. * Sore throat - BMX as needed. * Chin infection - Clindamycin 300MG TID, Vancomycin 1.5GM IV Q24H, appreciate Dr. Henderson input. * Otitis Externa - Cortisporin OTIC x 10 days, will discontinue. * Tinea Corporis - Nystatin powder BID.
[2018-01-16] MEDS: traZODone 50 MG Tablet PO (20:35)
[2018-01-16] MEDS: Atorvastatin Calcium 20 MG Tablet PO (20:35)
[2018-01-16] MEDS: 0.9% NaCl PICC Flush 10 ML IV (20:35)
--- NOTE | 2018-01-16 20:35 | PCM.RX.CS ---
Consult Pharmacy has been consulted to manage selected antiobiotic: Vancomycin Type of Consult: Follow-up - 01/16 1930 TROUGH IS 22.8. WILL OBTAIN ANOTHER LEVEL IN 8 HOURS AND CALCULATE NEW DOSE Labs: Sodium 136 mmol/L (136-145) 01/14/18 06:30 Potassium 3.7 mmol/L (3.5-5.1) 01/14/18 06:30 Chloride 99 mmol/L (98-107) 01/14/18 06:30 Carbon Dioxide 33.0 mmol/L (21.0-32.0) H 01/14/18 06:30 Anion Gap 4 (5-15) L 01/14/18 06:30 BUN 11 mg/dL (7-18) 01/14/18 06:30 Creatinine 0.99 mg/dL (0.55-1.02) 01/14/18 06:30 Est GFR (MDRD) Af Amer 71 mL/min (>60) 01/14/18 06:30 Est GFR (MDRD) Non-Af 59 mL/min (>60) L 01/14/18 06:30 BUN/Creatinine Ratio 11.1 RATIO (10-20) 01/14/18 06:30 Glucose 107 mg/dL (74-106) H 01/14/18 06:30 Vancomycin Trough 22.8 ug/mL (5.0-15.0) H 01/16/18 19:28 Microbiology: Microbiology 01/10/18 15:15 Wound - Face Gram Stain - Final 01/10/18 15:15 Wound - Face Wound Culture - Final Coag Negative Staph Gram positive chino Alpha Hemolytic Streptococcus 12/30/17 20:30 Blood Culture (Wb) - Right Hand Blood Culture - Final No growth in 5 days. 12/30/17 20:40 Blood Culture (Wb) - Left Hand Blood Culture - Final No growth in 5 days. 12/30/17 16:00 Wound - Open/Non-Healing Wound Gram Stain - Final 12/30/17 16:00 Wound - Open/Non-Healing Wound Wound Culture - Final Meth. resistant Staph. aureus 12/30/17 16:00 Mucosa - Throat Throat Culture - Final Meth. resistant Staph. aureus 12/26/17 07:00 Urine Catheter - Catheter Urine Culture - Final Culture exhibits no growth. Pharmacy Plan for Drug Dosing: Pharmacy Service will continue to monitor and adjust dosing as required.
[2018-01-16 21:31] LABS: Bedside Glucose 160 mg/dL (70-110)
[2018-01-17 04:58] LABS: Vancomycin, Random Level 18.1 ug/mL (0.0-15.0)
[2018-01-17] MEDS: oxyCODONE 5 MG Tablet 10 MG PO ×2 (05:52→21:53)
[2018-01-17] MEDS: Clindamycin HCl 150 MG Capsule 300 MG PO ×3 (05:52→20:00)
[2018-01-17 06:46] LABS: Bedside Glucose 136 mg/dL (70-110)
--- NOTE | 2018-01-17 06:47 | PCM.RX.CS ---
Consult Pharmacy has been consulted to manage selected antiobiotic: Vancomycin Type of Consult: Follow-up Suspected Infection: Skin/Soft tissue Labs: Sodium 136 mmol/L (136-145) 01/14/18 06:30 Potassium 3.7 mmol/L (3.5-5.1) 01/14/18 06:30 Chloride 99 mmol/L (98-107) 01/14/18 06:30 Carbon Dioxide 33.0 mmol/L (21.0-32.0) H 01/14/18 06:30 Anion Gap 4 (5-15) L 01/14/18 06:30 BUN 11 mg/dL (7-18) 01/14/18 06:30 Creatinine 0.99 mg/dL (0.55-1.02) 01/14/18 06:30 Est GFR (MDRD) Af Amer 71 mL/min (>60) 01/14/18 06:30 Est GFR (MDRD) Non-Af 59 mL/min (>60) L 01/14/18 06:30 BUN/Creatinine Ratio 11.1 RATIO (10-20) 01/14/18 06:30 Glucose 107 mg/dL (74-106) H 01/14/18 06:30 Vancomycin Trough 22.8 ug/mL (5.0-15.0) H 01/16/18 19:28 Random Vancomycin 18.1 ug/mL (0.0-15.0) H 01/17/18 03:46 Microbiology: Microbiology 01/10/18 15:15 Wound - Face Gram Stain - Final 01/10/18 15:15 Wound - Face Wound Culture - Final Coag Negative Staph Gram positive chino Alpha Hemolytic Streptococcus 12/30/17 20:30 Blood Culture (Wb) - Right Hand Blood Culture - Final No growth in 5 days. 12/30/17 20:40 Blood Culture (Wb) - Left Hand Blood Culture - Final No growth in 5 days. 12/30/17 16:00 Wound - Open/Non-Healing Wound Gram Stain - Final 12/30/17 16:00 Wound - Open/Non-Healing Wound Wound Culture - Final Meth. resistant Staph. aureus 12/30/17 16:00 Mucosa - Throat Throat Culture - Final Meth. resistant Staph. aureus 12/26/17 07:00 Urine Catheter - Catheter Urine Culture - Final Culture exhibits no growth. Goal Trough: 15-20 mcg/mL Pharmacy Plan for Drug Dosing: Pharmacy Service will continue to monitor and adjust dosing as required. TR AT 1928 WAS 22.8 REDRAW AT 0346 WAS 18.1 NEW DOSE 1GM Q24H STARTED AT 0700 Follow-Up Labs: Trough Vancomycin Labs to be done on [date and time ordered]: 01/19 @ 0700
[2018-01-17] MEDS: 0.9% NaCl PICC Flush 10 ML IV (06:54)
[2018-01-17] MEDS: 0.9% NaCl IVPB Med Flush (250 mL) 15 ML IV (06:54)
[2018-01-17] MEDS: Vancomycin IV 1,000 MG/200 ML BAG 200 MG IV (06:55)
[2018-01-17] MEDS: Senna/Docusate Sodium 1 Tablet PO (09:30)
[2018-01-17] MEDS: Flecainide 150 MG Tablet PO ×2 (09:30→19:59)
[2018-01-17] MEDS: Gabapentin 600 MG Tablet PO ×2 (09:31→17:24)
[2018-01-17] MEDS: Aspirin 81 MG TAB.CHEW PO (09:31)
[2018-01-17] MEDS: Furosemide 20 MG Tablet 60 MG PO ×2 (09:31→17:24)
[2018-01-17] MEDS: Menthol/Lanolin/Calamine/Znox 113 GM Tube 1 APPLIC TOPICAL ×2 (09:31→20:01)
[2018-01-17] MEDS: Nystatin Powder 15gm Bottle 1 APPLIC TOPICAL ×2 (09:32→20:02)
[2018-01-17] MEDS: Glucerna Shake 120 ML LIQUID PO ×3 (09:33→17:24)
--- NOTE | 2018-01-17 10:46 | CASEMGMT ---
Insurance Continued stay has been denied with last cover day being 01/19/18 and resident to discharge or financial responsibility to begin on 01/20/18. Auth#[id number] SULTANA Francois, COLLAR FELLER
[2018-01-17 11:31] LABS: Bedside Glucose 246 mg/dL (70-110)
--- NOTE | 2018-01-17 12:14 | CASEMGMT ---
Brief interview for mental status (BIMS) and resident mood interview (PHQ-9) completed on this day. BIMS score 15. PHQ-9 score 05/17
--- NOTE | 2018-01-17 12:37 | CASEMGMT ---
Social Work Spoke with resident in room. This manager social services communicating that continued stay has been denied by insurance with last cover day being 01/19/18 and resident to discharge or financial responsibility to begin on 01/20/18. Resident voicing understanding and choosing to initiate appeal. Resident initiating appeal at this time. Resident reporting to not be able to continue with stay past 01/20/18 if appeal is lost and would like this manager social services to continue working with extended care facilities close to resident Willa beckett. This manager social services voicing understanding. Resident to continue with further care and treatment on the Transitional Care Unit. Support given. Telephone call to resident Willa beckett, per resident request. Voicemail left requesting a return phone call. Telephone call to Roma Gusman. This manager social services communicating that resident has been discontinued approval of skilled services at this time and that resident is appeal but possible discharge on 01/20/18. Roma reporting to still be reviewing resident information and to be able to get back to this manager social services on confirmation later today/tomorrow morning. Roma reporting that facility is working with family to set up a plan. Transfer form initiated. Proposed discharge date: 01/20/18 pending appeal. PLAN: Discharge to extended care facility near [facility] pending outcome of appeal. Ritika Galarza, CASH PROCESSOR, ADJUNCT INSTRUCTOR CHEMISTRY
[2018-01-17 16:00] VITALS: BP 177/56; PULSE 63; RESP 18; TEMP 35.7; O2SAT 98
--- NOTE | 2018-01-17 17:09 | CASEMGMT ---
Social Work Telephone call from Roma Gusman reporting to be unable to accept resident. Telephone call to Willa, resident sister, another voicemail left inquiring about discharge planning and to inform of above information. Spoke with resident in room. Resident aware of Naseem decision and requesting for this social work program coordinator to continue with making referrals to the other two facilities mentioned in previous note. Will make referral to other facilities tomorrow morning due to end of business day. Proposed discharge date: 01/20/18 pending appeal. PLAN: Discharge to an extended care facility pending appeal. Ritika Galarza, FLAKEBOARD LINE TENDER, DEBURR TECHNICIAN
[2018-01-17 17:10] LABS: Bedside Glucose 162 mg/dL (70-110)
--- NOTE | 2018-01-17 17:28 | CASEMGMT ---
Social Work Phone call received from resident sister, Willa. This delinquency prevention social worker communicating all discharge plan and appeal process. Willa agreeable to all. Will continue to follow. Ritika Galarza. NAVAL GUNFIRE SPOTTER, COLLATOR
[2018-01-17] MEDS: traZODone 50 MG Tablet PO (19:59)
[2018-01-17] MEDS: Atorvastatin Calcium 20 MG Tablet PO (20:00)
--- NOTE | 2018-01-17 20:51 | TREXTCAR_ITS ---
- Diet 12/23/17 15:06 Diet: Calorie Controlled Food consistency:: Soft Diet Comments: cardiac How many daily calories?: 1800 calorie - Routine Orders/Code Status Suppository Type: Dulcolax 10mg Suppository Frequency: Daily PRN Routine Lab Work: CBC, BMP, INR, - - Vancomycin trough levels. Code Status: Full Code - Wound(s) chin Wound Type: Open Surgical Wound Dressing Change: Wet to Dry Dressing bottom lip Wound Type: blister - Therapies Weight Bearing: Weight bearing as tolerated Extremity Affected:: Bilateral Lower Physical Therapy: Eval and Treat Occupational Therapy: Eval and Treat - Problem/Diagnosis (1) Wound abscess Status: Acute Current Visit: Yes (2) Squamous cell carcinoma, face Status: Acute Current Visit: Yes (3) Edema Status: Chronic Current Visit: Yes (4) Atrial fibrillation Status: Chronic Current Visit: Yes (5) Sleep apnea Status: Chronic Current Visit: Yes (6) GERD (gastroesophageal reflux disease) Status: Chronic Current Visit: Yes (7) Insomnia Status: Chronic Current Visit: Yes (8) Neuropathic pain Status: Chronic Current Visit: Yes (9) Osteomyelitis of mandible Status: Acute Current Visit: No (10) Facial cellulitis Status: Acute Current Visit: No (11) Asthma Status: Chronic Current Visit: No (12) Obesity Status: Chronic Current Visit: No (13) Chronic diastolic heart failure Status: Chronic Current Visit: No (14) HTN (hypertension) Status: Chronic Current Visit: No (15) HLD (hyperlipidemia) Status: Chronic Current Visit: No (16) Diabetes mellitus Status: Chronic Current Visit: No (17) COPD (chronic obstructive pulmonary disease) Status: Chronic Current Visit: No (18) Basal cell carcinoma of face Status: Chronic Comment: Left face-has had 2 surgeries so far the first in February of 2015 Current Visit: No - Allergies/Procedures Done in Hospital Allergies/Adverse Reactions: Allergies ampicillin Allergy (Severe, Verified 01/09/18 14:07) Anaphylaxis hydrocodone bitartrate [From Vicodin] Allergy (Severe, Verified 01/09/18 14:07) Itching Penicillins Allergy (Severe, Verified 01/09/18 14:07) Anaphylaxis clarithromycin [From Biaxin] Allergy (Verified 01/09/18 14:07) Rash Red and itchy venom-honey bee [bee venom (honey bee)] Allergy (Verified 01/09/18 14:07) Nausea/Vom/Diarrhea - Type of Care/Length of Stay Estimated LOS: More Than 30 Days Type of Care Needed: Intermediate Rehab Potential: Fair Prognosis: Fair - Additional Orders/Day of Discharge Day of Discharge: 01/20/18 - Dietary and Speech Recommendations Dietitian Recommendations/Changes: Rec continue glucerna shake medpass to help w/ skin healing - Follow Up Care Primary Care Physician: Nigel Hoang Jr., MD [Primary Care Provider] - Please follow up with your Primary Care Physician in: As needed, Katelynn moving to [facility]. Please Follow Up With: sammy plastic surgeon When: 2 weeks. Please Follow Up With: Daryl Henderson MD When: 2 weeks.
--- NOTE | 2018-01-17 20:51 | PCM.DC.SUM ---
Discharge Date and Diagnosis - Problem List Patient Problems: Active and Suspected Problems (Last Reviewed 01/09/18 @ 14:08 by Kari Womack) Wound abscess (Acute) Squamous cell carcinoma, face (Acute) Date of Admission: 12/23/17 Date of Discharge: 01/20/18 - Primary Discharge Diagnosis Active and Suspected Problems (Last Reviewed 01/09/18 @ 14:08 by Kari Womack) Wound abscess (Acute) Squamous cell carcinoma, face (Acute) - Secondary Discharge Diagnosis Chronic Problems (Last Reviewed 01/09/18 @ 14:08 by Kari Womack) Edema (Chronic) Atrial fibrillation (Chronic) Sleep apnea (Chronic) GERD (gastroesophageal reflux disease) (Chronic) Insomnia (Chronic) Neuropathic pain (Chronic) Personal history of malignant neoplasm of other sites of lip, oral cavity, and pharynx (Chronic) Personal history of skin cancer (Chronic) Asthma (Chronic) Obesity (Chronic) Atrial enlargement, left (Chronic) BMI 40.0-44.9, adult (Chronic) Chronic diastolic (congestive) heart failure (Chronic) Diastolic dysfunction (Chronic) Sinus bradycardia (Chronic) Fatigue (Chronic) Long-term use of high-risk medication (Chronic) Bilateral lower extremity edema (Chronic) History of cardioversion (Chronic ~10/01/16) H/O right and left heart catheterization (Chronic ~05/15/15) H/O basal cell carcinoma excision (Chronic) Recurrent basal cell carcinoma following excision (Chronic) Persistent atrial fibrillation (Chronic) Chronic diastolic heart failure (Chronic) 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 (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) HTN (hypertension) (Chronic) HLD (hyperlipidemia) (Chronic) Diabetes mellitus (Chronic) COPD (chronic obstructive pulmonary disease) (Chronic) NICKOLAS (obstructive sleep apnea) (Chronic) Morbid obesity (Chronic) Basal cell carcinoma of face (Chronic) Left face-has had 2 surgeries so far the first in February of 2015 Hospital Course and Treatment Imaging Results: 12/23/17 15:06 Diet: Calorie Controlled Food consistency:: Soft Diet Comments: cardiac How many daily calories?: 1800 calorie Clinical Impression(s) from Imaging Studies KUB X-Ray 12/26/17 06:49 IMPRESSION: No radiographic evidence of acute intra-abdominal disease. Electronically Signed: Vicki Abel MD at 9:51 EDT , Service support , Soft Tissue Neck CT 01/04/18 09:25 IMPRESSION: Soft tissue mass with central ulceration along the anterior aspect of the central mandible with underlying bony destruction. Electronically Signed: Karlos Felipe MD at 13:52 EDT Tel [phone], Service support , Chest X-Ray 01/10/18 18:35 IMPRESSION: Right-sided PICC line with tip superimposed on the mid SVC. Calcified plaques of the aortic arch. No acute cardiopulmonary disease process is seen. Electronically Signed: Ruslan Wright MD at 18:58 EDT , Service support , Labs (Last 48 Hours) 01/15/18 01/16/18 01/16/18 21:13 06:21 06:36 PT 18.1 H INR 1.5 Vancomycin Trough Random Vancomycin POC Glucose 146 H 113 H 01/16/18 01/16/18 01/16/18 10:02 13:50 16:54 PT INR Vancomycin Trough Random Vancomycin POC Glucose 134 H 205 H 132 H 01/16/18 01/16/18 01/17/18 19:28 21:09 03:46 PT INR Vancomycin Trough 22.8 H Random Vancomycin 18.1 H POC Glucose 160 H 01/17/18 01/17/18 01/17/18 06:39 11:24 17:05 PT INR Vancomycin Trough Random Vancomycin POC Glucose 136 H 246 H 162 H Consultations 12/23/17 Consult: Onc/Wound/risk management director Routine Comment: Operations: None Procedures: None Summary of Care Provided: The patient is a 67 year old Female with below past medical history significant for squamous cell cancer of face, hospitalized for chin wound infection, treated with intravenous antibiotics, need outpatient surgery to excise squamous cell cancer, admitted to TCU with debility, here for rehabilitation, strengthening, prior to discharge home alone, consider middle or intermediate school principal care placement. Resident's chin wound will not heal due to underlying squamous cell cancer of skin, wound contaminated with skin/oral rosana, treat with antibiotics until infection cleared, then return to plastic surgery Dr. Cervino for squamous cell skin cancer excision. Discharge to extended care facility. Patient Problems: Active and Suspected Problems (Last Reviewed 01/09/18 @ 14:08 by Kari Womack) Wound abscess (Acute) Squamous cell carcinoma, face (Acute) - Physical Exam Vital Signs Temp Pulse Resp BP Pulse Ox 96.2 F L 63 18 177/56 H 98 01/17/18 16:00 01/17/18 16:00 01/17/18 16:00 01/17/18 16:00 01/17/18 16:00 Oxygen Flow Rate (L/min) 97 Oxygen Delivery Method Room Air Weight: 102.285 kg Body Mass Index (BMI) 42.0 Finger Stick Blood Glucose 117 Intake and Output for Last 24 Hours 01/15/18 01/16/18 01/17/18 23:59 23:59 23:59 Intake Total 720 / 720 120 / 120 480 / 480 Balance 720 / 720 120 / 120 480 / 480 Laboratory Tests Past 24 Hrs 01/17/18 03:46 Random Vancomycin 18.1 H POC Glucose 01/17/18 01/17/18 01/17/18 17:05 11:24 06:39 POC Glucose 162 H 246 H 136 H 01/16/18 21:09 POC Glucose 160 H Discharge Diet: No Restrictions Discharge Activity: Return to Normal Activity, Use Walker Weight Bearing Status: Weight bearing as tolerated Call your doctor if you observe: Fever of 101 or Higher, Inability to urinate, Inability to have a bowel movement, Shortness of breath, Chest pain, Uncontrolled pain Home Medications: Medications to take at Discharge Metformin HCl [Glucophage] 500 mg PO BREAKFAST 04/13/15 traZODone [Desyrel] 50 mg PO QHS 04/13/15 Albuterol Inhaler [Ventolin Hfa] 2 puff INHALATION Q4H PRN PRN #1 inhaler 08/14/16 Gabapentin [Neurontin] 600 mg PO TID 01/26/17 atorvastatin 20 mg tablet 20 mg PO QHS tab 03/09/17 insulin NPH isophane U- 100 human 100 unit/mL subcutaneous suspension 18 unit SC QPM 04/18/17 Furosemide 40 mg PO TID 08/03/17 Ipratropium Cora 0.06% [ATROVENT NASAL SPRAY] 2 spray NASAL BID 11/18/17 Aspirin [Aspirin, Baby] 81 mg PO DAILY@0800 12/23/17 Flecainide Acetate 150 mg PO Q12H 12/23/17 Potassium Chloride [K-Dur] 40 meq PO QDAY 12/23/17 0.9% Saline Lock 10 ml IV UD PRN syringe 01/17/18 Acetaminophen [Tylenol] 1,000 mg PO Q8H PRN PRN tablet 01/17/18 Bisacodyl [Dulcolax] 10 mg PO DAILY PRN tablet 01/17/18 Bmx Liquid 10 ml PO Q3H PRN PRN ml 01/17/18 Clindamycin [Cleocin] 300 mg PO TID capsule 01/17/18 Glucerna Shake 120 ml PO TIDCM liquid 01/17/18 Insulin Glargine [Lantus SoloStar Pen] 5 units SC BIDCM pen 01/17/18 Menthol/Lanolin/Calamine/Znox [Calmoseptine Ointment] 1 applic TOPICAL BID@0800,2200 tube 01/17/18 Nystatin Powder [Mycostatin Powder] 1 applic TOPICAL BID@0800,2200 bottle 01/17/18 Oxycodone [Oxyir] 10 mg PO Q2H PRN PRN 2 Days #60 tablet 01/17/18 Polyethylene Glycol 3350 [Miralax] 17 gm PO DAILY@0800 packet 01/17/18 Senna/Docusate Sodium [Senokot-S] 1 tablet PO BID@0800,1800 tablet 01/17/18 Vancomycin IV Pharmacy to Dose 1 ea IV PRN PRN each 01/17/18 Vancomycin IV [Vancomycin] 1,000 mg IV Q24H bag 01/17/18 Warfarin [Coumadin] 3 mg PO DAILY@1700 tablet 01/17/18 Following Prescrptions Were Given to Patient: Oxycodone [Oxyir] 10 mg PO Q2H PRN PRN 2 Days #60 tablet PRN Reason: Moderate Pain (4-5/10) Primary Care Physician: Nigel Hoang Jr., MD [Primary Care Provider] - Please follow up with your Primary Care Physician in: As needed, Katelynn moving to [facility]. Please Follow Up With: cervino plastic surgeon When: 2 weeks. Please Follow Up With: Daryl Henderson MD When: 2 weeks. Disposition: Asstd Living/Non-Skill NH Minutes spent on discharge:: 35 Patient Condition:: Guarded Medical Necessity - Tobacco Use Smoking Status: Never smoker Tobacco Use: Non-smoker Meaningful Use Info Meaningful Use Diagnoses (Choose all that apply): None applicable
--- NOTE | 2018-01-17 20:55 | DS.PCM_ITS ---
Discharge Date and Diagnosis - Problem List Patient Problems: Active and Suspected Problems (Last Reviewed 01/09/18 @ 14:08 by Kari Womack) Wound abscess (Acute) Squamous cell carcinoma, face (Acute) Date of Admission: 12/23/17 Date of Discharge: 01/20/18 - Primary Discharge Diagnosis Active and Suspected Problems (Last Reviewed 01/09/18 @ 14:08 by Kari Womack) Wound abscess (Acute) Squamous cell carcinoma, face (Acute) - Secondary Discharge Diagnosis Chronic Problems (Last Reviewed 01/09/18 @ 14:08 by Kari Womack) Edema (Chronic) Atrial fibrillation (Chronic) Sleep apnea (Chronic) GERD (gastroesophageal reflux disease) (Chronic) Insomnia (Chronic) Neuropathic pain (Chronic) Personal history of malignant neoplasm of other sites of lip, oral cavity, and pharynx (Chronic) Personal history of skin cancer (Chronic) Asthma (Chronic) Obesity (Chronic) Atrial enlargement, left (Chronic) BMI 40.0-44.9, adult (Chronic) Chronic diastolic (congestive) heart failure (Chronic) Diastolic dysfunction (Chronic) Sinus bradycardia (Chronic) Fatigue (Chronic) Long-term use of high-risk medication (Chronic) Bilateral lower extremity edema (Chronic) History of cardioversion (Chronic ~10/01/16) H/O right and left heart catheterization (Chronic ~05/15/15) H/O basal cell carcinoma excision (Chronic) Recurrent basal cell carcinoma following excision (Chronic) Persistent atrial fibrillation (Chronic) Chronic diastolic heart failure (Chronic) 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) HTN (hypertension) (Chronic) HLD (hyperlipidemia) (Chronic) Diabetes mellitus (Chronic) COPD (chronic obstructive pulmonary disease) (Chronic) NICKOLAS (obstructive sleep apnea) (Chronic) Morbid obesity (Chronic) Basal cell carcinoma of face (Chronic) Left face-has had 2 surgeries so far the first in February of 2015 Hospital Course and Treatment Imaging Results: 12/23/17 15:06 Diet: Calorie Controlled Food consistency:: Soft Diet Comments: cardiac How many daily calories?: 1800 calorie Clinical Impression(s) from Imaging Studies KUB X-Ray 12/26/17 06:49 IMPRESSION: No radiographic evidence of acute intra-abdominal disease. Electronically Signed: Vicki Abel MD at 9:51 EDT , Service support , Soft Tissue Neck CT 01/04/18 09:25 IMPRESSION: Soft tissue mass with central ulceration along the anterior aspect of the central mandible with underlying bony destruction. Electronically Signed: Karlos Felipe MD at 13:52 EDT Tel [phone], Service support , Chest X-Ray 01/10/18 18:35 IMPRESSION: Right-sided PICC line with tip superimposed on the mid SVC. Calcified plaques of the aortic arch. No acute cardiopulmonary disease process is seen. Electronically Signed: Ruslan Wright MD at 18:58 EDT , Service support , Labs (Last 48 Hours) 01/15/18 01/16/18 01/16/18 21:13 06:21 06:36 PT 18.1 H INR 1.5 Vancomycin Trough Random Vancomycin POC Glucose 146 H 113 H 01/16/18 01/16/18 01/16/18 10:02 13:50 16:54 PT INR Vancomycin Trough Random Vancomycin POC Glucose 134 H 205 H 132 H 01/16/18 01/16/18 01/17/18 19:28 21:09 03:46 PT INR Vancomycin Trough 22.8 H Random Vancomycin 18.1 H POC Glucose 160 H 01/17/18 01/17/18 01/17/18 06:39 11:24 17:05 PT INR Vancomycin Trough Random Vancomycin POC Glucose 136 H 246 H 162 H Consultations 12/23/17 Consult: Onc/Wound/cashier payments received Routine Comment: Operations: None Procedures: None Summary of Care Provided: The patient is a 67 year old Female with below past medical history significant for squamous cell cancer of face, hospitalized for chin wound infection, treated with intravenous antibiotics, need outpatient surgery to excise squamous cell cancer, admitted to TCU with debility, here for rehabilitation, strengthening, prior to discharge home alone, 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 Resident's chin wound will not heal due to underlying squamous cell cancer of skin, wound contaminated with skin/oral rosana, treat with antibiotics until infection cleared, then return to plastic surgery Dr. Cervino for squamous cell skin cancer excision. Discharge to extended care facility. Patient Problems: Active and Suspected Problems (Last Reviewed 01/09/18 @ 14:08 by Kari Womack) Wound abscess (Acute) Squamous cell carcinoma, face (Acute) - Physical Exam Vital Signs Temp Pulse Resp BP Pulse Ox 96.2 F L 63 18 177/56 H 98 01/17/18 16:00 01/17/18 16:00 01/17/18 16:00 01/17/18 16:00 01/17/18 16:00 Oxygen Flow Rate (L/min) 97 Oxygen Delivery Method Room Air Weight: 102.285 kg Body Mass Index (BMI) 42.0 Finger Stick Blood Glucose 117 Intake and Output for Last 24 Hours 01/15/18 01/16/18 01/17/18 23:59 23:59 23:59 Intake Total 720 / 720 120 / 120 480 / 480 Balance 720 / 720 120 / 120 480 / 480 Laboratory Tests Past 24 Hrs 01/17/18 03:46 Random Vancomycin 18.1 H POC Glucose 01/17/18 01/17/18 01/17/18 17:05 11:24 06:39 POC Glucose 162 H 246 H 136 H 01/16/18 21:09 POC Glucose 160 H Discharge Diet: No Restrictions Discharge Activity: Return to Normal Activity, Use Walker Weight Bearing Status: Weight bearing as tolerated Call your doctor if you observe: Fever of 101 or Higher, Inability to urinate, Inability to have a bowel movement, Shortness of breath, Chest pain, Uncontrolled pain Home Medications: Medications to take at Discharge Metformin HCl [Glucophage] 500 mg PO BREAKFAST 04/13/15 traZODone [Desyrel] 50 mg PO QHS 04/13/15 Albuterol Inhaler [Ventolin Hfa] 2 puff INHALATION Q4H PRN PRN #1 inhaler 08/14/16 Gabapentin [Neurontin] 600 mg PO TID 01/26/17 atorvastatin 20 mg tablet 20 mg PO QHS tab 03/09/17 insulin NPH isophane U- 100 human 100 unit/mL subcutaneous suspension 18 unit SC QPM 04/18/17 Furosemide 40 mg PO TID 08/03/17 Ipratropium Sharon 0.06% [ATROVENT NASAL SPRAY] 2 spray NASAL BID 11/18/17 Aspirin [Aspirin, Baby] 81 mg PO DAILY@0800 12/23/17 Flecainide Acetate 150 mg PO Q12H 12/23/17 Potassium Chloride [K-Dur] 40 meq PO QDAY 12/23/17 0.9% Saline Lock 10 ml IV UD PRN syringe 01/17/18 Acetaminophen [Tylenol] 1,000 mg PO Q8H PRN PRN tablet 01/17/18 Bisacodyl [Dulcolax] 10 mg PO DAILY PRN tablet 01/17/18 Bmx Liquid 10 ml PO Q3H PRN PRN ml 01/17/18 Clindamycin [Cleocin] 300 mg PO TID capsule 01/17/18 Glucerna Shake 120 ml PO TIDCM liquid 01/17/18 Insulin Glargine [Lantus SoloStar Pen] 5 units SC BIDCM pen 01/17/18 Menthol/Lanolin/Calamine/Znox [Calmoseptine Ointment] 1 applic TOPICAL BID@0800,2200 tube 01/17/18 Nystatin Powder [Mycostatin Powder] 1 applic TOPICAL BID@0800,2200 bottle 01/17/18 Oxycodone [Oxyir] 10 mg PO Q2H PRN PRN 2 Days #60 tablet 01/17/18 Polyethylene Glycol 3350 [Miralax] 17 gm PO DAILY@0800 packet 01/17/18 Senna/Docusate Sodium [Senokot-S] 1 tablet PO BID@0800,1800 tablet 01/17/18 Vancomycin IV Pharmacy to Dose 1 ea IV PRN PRN each 01/17/18 Vancomycin IV [Vancomycin] 1,000 mg IV Q24H bag 01/17/18 Warfarin [Coumadin] 3 mg PO DAILY@1700 tablet 01/17/18 Following Prescrptions Were Given to Patient: Oxycodone [Oxyir] 10 mg PO Q2H PRN PRN 2 Days #60 tablet PRN Reason: Moderate Pain (4-5/10) Primary Care Physician: Nigel Hoang Jr., MD [Primary Care Provider] - Please follow up with your Primary Care Physician in: As needed, Katelynn moving to [facility]. Please Follow Up With: cervino plastic surgeon When: 2 weeks. Please Follow Up With: Daryl Henderson MD When: 2 weeks. Disposition: Asstd Living/Non-Skill NH Minutes spent on discharge:: 35 Patient Condition:: Guarded Medical Necessity - Tobacco Use Smoking Status: Never smoker Tobacco Use: Non-smoker Meaningful Use Info Meaningful Use Diagnoses (Choose all that apply): None applicable
[2018-01-17 21:01] LABS: Bedside Glucose 173 mg/dL (70-110)
[2018-01-18] MEDS: Clindamycin HCl 150 MG Capsule 300 MG PO ×2 (04:45→09:08)
[2018-01-18 06:31] LABS: Bedside Glucose 145 mg/dL (70-110)
[2018-01-18] MEDS: 0.9% NaCl IVPB Med Flush (250 mL) 15 ML IV (06:44)
[2018-01-18] MEDS: 0.9% NaCl PICC Flush 10 ML IV (06:45)
[2018-01-18] MEDS: Vancomycin IV 1,000 MG/200 ML BAG 200 MG IV (06:46)
[2018-01-18] MEDS: Aspirin 81 MG TAB.CHEW PO (09:07)
[2018-01-18] MEDS: Glucerna Shake 120 ML LIQUID PO ×2 (09:07→17:59)
[2018-01-18] MEDS: oxyCODONE 5 MG Tablet 10 MG PO ×3 (09:07→23:15)
[2018-01-18] MEDS: Furosemide 20 MG Tablet 60 MG PO ×2 (09:07→17:57)
[2018-01-18] MEDS: Gabapentin 600 MG Tablet PO ×2 (09:08→17:57)
[2018-01-18] MEDS: Acetaminophen 500 MG Tablet 1000 MG PO ×2 (09:08→20:12)
[2018-01-18] MEDS: Flecainide 150 MG Tablet PO ×2 (09:11→19:57)
[2018-01-18] MEDS: Menthol/Lanolin/Calamine/Znox 113 GM Tube 1 APPLIC TOPICAL ×2 (09:12→19:57)
[2018-01-18] MEDS: Nystatin Powder 15gm Bottle 1 APPLIC TOPICAL ×2 (09:13→19:57)
--- NOTE | 2018-01-18 10:25 | CASEMGMT ---
Social Work Telephone call to [facility] - [phone], Felipa. This addiction social worker making referral. Clinical information faxed. Telephone call to [facility] - [phone], Voicemail left with admissions. Pending return phone call at this time. Will continue to follow. SULTANA Francois, BRIDGE BUILDER
--- NOTE | 2018-01-18 11:54 | CASEMGMT ---
Social Work Telephone call to [facility]. Resident Case number for Medicaid is [id number]. Will continue to follow. SULTANA Francois, ROTARY ROCK DRILLING MACHINE OPERATOR
[2018-01-18] MEDS: Ondansetron ODT 4 MG Tablet PO (12:40)
[2018-01-18 14:01] LABS: Bedside Glucose 210 mg/dL (70-110)
[2018-01-18 15:53] VITALS: BP 129/62; PULSE 54; RESP 18; TEMP 35.7; O2SAT 96
--- NOTE | 2018-01-18 16:35 | PCM.PN.ID ---
Patient Problems: Active and Suspected Problems (Last Reviewed 01/09/18 @ 14:08 by Kari Womack) Wound abscess (Acute) Squamous cell carcinoma, face (Acute) Subjective: Not feeling well, having some nausea and loose stool. - Physical Exam General: Alert, Cooperative, No apparent distress Lungs: Clear to auscultation, Normal air movement Cardiovascular: Regular rate, Regular Rhythm Abdomen: Soft, Non Tender, Non-Distended Skin: Ulcer/ Wound - on chin Vital Signs Temp Pulse Resp BP Pulse Ox 96.2 F L 54 L 18 129/62 H 96 01/18/18 15:53 01/18/18 15:53 01/18/18 15:53 01/18/18 15:53 01/18/18 15:53 Oxygen Flow Rate (L/min) 97 Oxygen Delivery Method Room Air Weight: 102.285 kg Body Mass Index (BMI) 42.0 Finger Stick Blood Glucose 117 Intake and Output for Last 24 Hours 01/16/18 01/17/18 01/18/18 23:59 23:59 23:59 Intake Total 120 / 120 480 / 480 810 / 810 Balance 120 / 120 480 / 480 810 / 810 POC Glucose 01/18/18 01/18/18 01/17/18 13:58 06:12 20:58 POC Glucose 210 H 145 H 173 H 01/17/18 17:05 POC Glucose 162 H Medical Necessity - Tobacco Use Smoking Status: Never smoker Tobacco Use: Non-smoker Route of nutrition/ use of supplements: [] Nutritional Intake: [] IV Site: [] Muro Catheter: [] - Assessment/Plan Antibiotics: [] Assessment/Plan: [] Active and Suspected Problems (Last Reviewed 12/04/17 @ 01:53 by Sanjay Rhodes MD) Wound abscess (Acute) Squamous cell carcinoma, face (Acute) Wound relatively stable, but only minimal improvement in size, still with pain, redness, and drainage. Had bone biopsy previously that was negative for infection but (+) for squamous cell cancer. Started iv vanc 01/10. Repeat wound cx with CoNS, GPR, and strep, consistent with oral/skin rosana. No MRSA. 01/12 added clinda. Now with nausea, loose stool. Will change clinda to flagyl to see if this helps. Halfway plan is difficult if she continues to re-contaminate her wound. It may not heal due to underlying cancer, but it doesn't sound like surgery will happen until infection is gone, but it keeps on getting re-infected because it won't heal. May have to plan on continuing iv vanc for total 6 week course until surgeon feels comfortable with operating. Stop date vanc planned for 02/21/18. Weekly bmp, cbc, and vanc trough while on iv vanc. Will follow.
[2018-01-18 16:46] LABS: Bedside Glucose 171 mg/dL (70-110)
[2018-01-18] MEDS: traZODone 50 MG Tablet PO (19:57)
[2018-01-18] MEDS: Atorvastatin Calcium 20 MG Tablet PO (19:57)
[2018-01-18] MEDS: metroNIDAZOLE 500 MG Tablet PO (19:57)
--- NOTE | 2018-01-18 19:59 | NURSING ---
Pt remains in contact isolation precautions in room for MRSA in wound. All care provided in room.
[2018-01-18 20:41] LABS: Bedside Glucose 158 mg/dL (70-110)
[2018-01-19] MEDS: metroNIDAZOLE 500 MG Tablet PO ×3 (06:42→20:49)
[2018-01-19] MEDS: oxyCODONE 5 MG Tablet 10 MG PO ×4 (06:42→19:25)
[2018-01-19 06:43] LABS: International Normalized Ratio 1.3; Prothrombin Time (Protime)PT. 16.6 SECONDS (11.7-14.9)
[2018-01-19 06:56] LABS: Bedside Glucose 120 mg/dL (70-110)
[2018-01-19 07:10] LABS: Vancomycin, Trough Level 16.8 ug/mL (5.0-15.0)
[2018-01-19] MEDS: Vancomycin IV 1,000 MG/200 ML BAG 200 MG IV (07:28)
[2018-01-19] MEDS: 0.9% NaCl PICC Flush 10 ML IV (07:28)
[2018-01-19] MEDS: Glucerna Shake 120 ML LIQUID PO ×2 (08:59→17:07)
--- NOTE | 2018-01-19 09:00 | PCM.RX.CS ---
Consult Pharmacy has been consulted to manage selected antiobiotic: Vancomycin Type of Consult: Follow-up Suspected Infection: Skin/Soft tissue Prior Doses of Antibiotics Received/Current Regimen: VANCOMYCIN 1000MG IV Q24H: 01/18 @0646, 01/19 @0748 Labs: Sodium 136 mmol/L (136-145) 01/14/18 06:30 Potassium 3.7 mmol/L (3.5-5.1) 01/14/18 06:30 Chloride 99 mmol/L (98-107) 01/14/18 06:30 Carbon Dioxide 33.0 mmol/L (21.0-32.0) H 01/14/18 06:30 Anion Gap 4 (5-15) L 01/14/18 06:30 BUN 11 mg/dL (7-18) 01/14/18 06:30 Creatinine 0.99 mg/dL (0.55-1.02) 01/14/18 06:30 Est GFR (MDRD) Af Amer 71 mL/min (>60) 01/14/18 06:30 Est GFR (MDRD) Non-Af 59 mL/min (>60) L 01/14/18 06:30 BUN/Creatinine Ratio 11.1 RATIO (10-20) 01/14/18 06:30 Glucose 107 mg/dL (74-106) H 01/14/18 06:30 Vancomycin Trough 16.8 ug/mL (5.0-15.0) H 01/19/18 06:27 Random Vancomycin 18.1 ug/mL (0.0-15.0) H 01/17/18 03:46 Microbiology: Microbiology 01/10/18 15:15 Wound - Face Gram Stain - Final 01/10/18 15:15 Wound - Face Wound Culture - Final Coag Negative Staph Gram positive chino Alpha Hemolytic Streptococcus 12/30/17 20:30 Blood Culture (Wb) - Right Hand Blood Culture - Final No growth in 5 days. 12/30/17 20:40 Blood Culture (Wb) - Left Hand Blood Culture - Final No growth in 5 days. 12/30/17 16:00 Wound - Open/Non-Healing Wound Gram Stain - Final 12/30/17 16:00 Wound - Open/Non-Healing Wound Wound Culture - Final Meth. resistant Staph. aureus 12/30/17 16:00 Mucosa - Throat Throat Culture - Final Meth. resistant Staph. aureus 12/26/17 07:00 Urine Catheter - Catheter Urine Culture - Final Culture exhibits no growth. Goal Trough: 15-20 mcg/mL Pharmacy Plan for Drug Dosing: The patient had a trough drawn 01/19/18 @ 0627, which resulted in a value of 16.8 (drawn ~24hrs from last dose given). This is within the goal range of 15-20. Per ID, tentative stop date for vancomycin is 02/21/18 to complete a 6 week course of vancomycin. Will check another trough in 4 days to ensure trough is still in goal range since she was supratherapeutic previously. If that is within therapeutic goal, will time the troughs and BMP out to once weekly. Last BMP done 01/14, ordered another one for tomorrow to check renal function. PLAN/RECOMMENDATIONS 1. Continue vancomycin 1000mg IV Q24hrs 2. BMP ordered 01/20/18 to assess renal function 3. Vancomycin trough scheduled 01/23/18 @0630 4. Pharmacy Service will continue to monitor and adjust dosing as required.
[2018-01-19] MEDS: Aspirin 81 MG TAB.CHEW PO (09:01)
[2018-01-19] MEDS: Furosemide 20 MG Tablet 60 MG PO ×2 (09:03→17:05)
[2018-01-19] MEDS: Gabapentin 600 MG Tablet PO ×2 (09:04→17:05)
[2018-01-19] MEDS: Flecainide 150 MG Tablet PO ×2 (09:05→19:28)
[2018-01-19] MEDS: Nystatin Powder 15gm Bottle 1 APPLIC TOPICAL ×2 (09:08→20:49)
[2018-01-19] MEDS: Menthol/Lanolin/Calamine/Znox 113 GM Tube 1 APPLIC TOPICAL ×2 (09:09→20:48)
[2018-01-19] MEDS: Ipratropium Bromide 0.06% NASAL SPRAY 2 SPRAY NASAL (09:10)
[2018-01-19 14:10] LABS: Bedside Glucose 177 mg/dL (70-110)
--- NOTE | 2018-01-19 14:40 | NURSING ---
pt off unit for ITZ at this time
--- NOTE | 2018-01-19 15:01 | CASEMGMT ---
Social Work Telephone call from Diony, resident won appeal. Unsure of when next update will be at this time. Spoke with resident in room. This forensic social worker communicating to resident that resident won appeal. Resident voicing understanding and requesting for this forensic social worker to continue to look into placement at the [facility]. Resident voicing to be choosing to discharge to an extended care facility closer to sister Willa. Resident planning to get together some documents (proof of income, bank statement) and get them to this forensic social worker in order for this forensic social worker to send to [facility] with the Medicaid application. Resident requesting for this forensic social worker to also contact Willa in regards to above information. Support given. Telephone call to Willa. This forensic social worker updating Willa on above information. Willa voicing understanding and planning to get together some documents for resident Medicaid application as well. Telephone call to Brii, This forensic social worker communicating above information. [facility] reporting to be able to medically accept and manage resident needs but to need to have payment source confirmed before [facility] is able to accept. This forensic social worker communicating resident case number for Medicaid application as well as that family and resident are getting documents together. Brii are planning to contact resident sister Willa. No discharge date set at this time. Will continue to follow. RADHIKA FrancoisW, MANAGER DRUG
[2018-01-19 16:00] VITALS: BP 145/45; PULSE 53; RESP 18; TEMP 35.8; O2SAT 90
[2018-01-19 17:06] LABS: Bedside Glucose 192 mg/dL (70-110)
[2018-01-19] MEDS: Acetaminophen 500 MG Tablet 1000 MG PO (19:25)
[2018-01-19] MEDS: traZODone 50 MG Tablet PO (20:49)
[2018-01-19] MEDS: Atorvastatin Calcium 20 MG Tablet PO (20:49)
[2018-01-19 21:46] LABS: Bedside Glucose 145 mg/dL (70-110)
[2018-01-20] MEDS: oxyCODONE 5 MG Tablet 10 MG PO ×5 (00:24→22:19)
[2018-01-20] MEDS: metroNIDAZOLE 500 MG Tablet PO ×3 (05:15→22:01)
[2018-01-20 05:49] LABS: Anion Gap 9 (5-15); BUN 15 mg/dL (7-18); BUN/Creat Ratio 12.9 RATIO (10-20); Calcium,Total 8.3 mg/dL (8.5-10.1); Chloride 97 mmol/L (98-107); Creatinine, Serum 1.16 mg/dL (0.55-1.02); EST Glomerular Filtration Rate 49 mL/min (>60); Est Glom Filt Rate - Afr Amer 60 mL/min (>60); Estimated Creatinine Clearance 37.86 ml/min; Glucose 113 mg/dL (74-106); Potassium 3.7 mmol/L (3.5-5.1); Sodium Level 138 mmol/L (136-145)
[2018-01-20] MEDS: Vancomycin IV 1,000 MG/200 ML BAG 200 MG IV (07:00)
[2018-01-20] MEDS: Glucerna Shake 120 ML LIQUID PO ×2 (07:01→18:09)
[2018-01-20 07:06] LABS: Bedside Glucose 113 mg/dL (70-110)
[2018-01-20] MEDS: Flecainide 150 MG Tablet PO ×2 (10:38→18:07)
[2018-01-20] MEDS: Furosemide 20 MG Tablet 60 MG PO ×2 (10:39→18:07)
[2018-01-20] MEDS: Gabapentin 600 MG Tablet PO ×2 (10:40→18:07)
[2018-01-20] MEDS: Aspirin 81 MG TAB.CHEW PO (10:43)
[2018-01-20] MEDS: Acetaminophen 500 MG Tablet 1000 MG PO ×2 (10:43→22:18)
[2018-01-20] MEDS: Ipratropium Bromide 0.06% NASAL SPRAY 2 SPRAY NASAL ×2 (10:51→18:11)
[2018-01-20] MEDS: Nystatin Powder 15gm Bottle 1 APPLIC TOPICAL ×2 (10:52→22:02)
[2018-01-20] MEDS: Menthol/Lanolin/Calamine/Znox 113 GM Tube 1 APPLIC TOPICAL ×2 (10:52→22:01)
--- NOTE | 2018-01-20 11:03 | NURSING ---
Dressing change to chin done at this time and oral care done as well.
[2018-01-20 11:06] LABS: Bedside Glucose 270 mg/dL (70-110)
[2018-01-20 11:35] LABS: Bedside Glucose 290 mg/dL (70-110)
--- NOTE | 2018-01-20 13:37 | NURSING ---
Dr. Soto consulted on CT results, he is currently out of town but will be back Tuesday afternoon.
[2018-01-20 14:21] LABS: Bedside Glucose 166 mg/dL (70-110)
--- NOTE | 2018-01-20 14:56 | PCM.PN.ID ---
Patient Problems: Active and Suspected Problems (Last Reviewed 01/09/18 @ 14:08 by Kari Womack) Wound abscess (Acute) Squamous cell carcinoma, face (Acute) Subjective: Nausea improved, no fever, but increased swelling of R side of mouth. - Physical Exam General: Alert, Cooperative, No apparent distress Lungs: Clear to auscultation, Normal air movement Cardiovascular: Regular rate, Regular Rhythm Abdomen: Soft, Non Tender, Non-Distended Skin: Ulcer/ Wound - increased swelling around R side of mouth adjacent to chin ulcer Vital Signs Temp Pulse Resp BP Pulse Ox 96.5 F L 53 L 18 145/45 H 90 01/19/18 16:00 01/19/18 16:00 01/19/18 16:00 01/19/18 16:00 01/19/18 16:00 Oxygen Flow Rate (L/min) 97 Oxygen Delivery Method Room Air Weight: 102.285 kg Body Mass Index (BMI) 42.0 Finger Stick Blood Glucose 117 Intake and Output for Last 24 Hours 01/18/18 01/19/18 01/20/18 23:59 23:59 23:59 Intake Total 810 / 810 840 / 840 240 / 240 Balance 810 / 810 840 / 840 240 / 240 Laboratory Tests Past 24 Hrs 01/20/18 05:20 Sodium 138 Potassium 3.7 Chloride 97 L Carbon Dioxide 32.0 Anion Gap 9 BUN 15 Creatinine 1.16 H Estim Creat Clear Calc 37.86 Est GFR (MDRD) Af Amer 60 Est GFR (MDRD) Non-Af 49 L BUN/Creatinine Ratio 12.9 Glucose 113 H Calcium 8.3 L POC Glucose 01/20/18 01/20/18 01/20/18 14:16 11:31 10:49 POC Glucose 166 H 290 H 270 H 01/20/18 01/19/18 01/19/18 06:45 21:35 16:56 POC Glucose 113 H 145 H 192 H Medical Necessity - Tobacco Use Smoking Status: Never smoker Tobacco Use: Non-smoker Route of nutrition/ use of supplements: [] Nutritional Intake: [] IV Site: [] Muro Catheter: [] - Assessment/Plan Antibiotics: [] Assessment/Plan: [] Active and Suspected Problems (Last Reviewed 12/04/17 @ 01:53 by Sanjay Rhodes MD) Wound abscess (Acute) Squamous cell carcinoma, face (Acute) Wound relatively stable, but only minimal improvement in size, still with pain, redness, and drainage. Had bone biopsy previously that was negative for infection but (+) for squamous cell cancer. Started iv vanc 01/10. Repeat wound cx with CoNS, GPR, and strep, consistent with oral/skin rosana. No MRSA. 01/12 added clinda but had n/v/d, so changed to flagyl. Half-Way plan is difficult if she continues to re-contaminate her wound. It may not heal due to underlying cancer, but it doesn't sound like surgery will happen until infection is gone, but it keeps on getting re-infected because it won't heal. May have to plan on continuing iv vanc for total 6 week course until surgeon feels comfortable with operating. Stop date vanc planned for 02/21/18. Weekly bmp, cbc, and vanc trough while on iv vanc. Ulcer is not improved despite iv abx and now with new facial swelling adjacent to ulcer. CT shows abscess. Right now it appears that she is failing medical therapy and will need debridement/resection in order to make any progress. Dr. Soto consulted. Will follow.
--- NOTE | 2018-01-20 15:46 | NURSING ---
Dr. Henderson updated on CT scan results, NNO.
[2018-01-20 16:00] VITALS: BP 139/67; PULSE 51; RESP 18; TEMP 35.2; O2SAT 94
[2018-01-20 17:11] LABS: Bedside Glucose 125 mg/dL (70-110)
[2018-01-20] MEDS: Senna/Docusate Sodium 1 Tablet PO (18:09)
[2018-01-20 21:46] LABS: Bedside Glucose 142 mg/dL (70-110)
[2018-01-20] MEDS: traZODone 50 MG Tablet PO (21:59)
[2018-01-20] MEDS: Atorvastatin Calcium 20 MG Tablet PO (22:00)
--- NOTE | 2018-01-21 03:50 | NURSING ---
Pt care provided in room d/t pt remaining in isolation precautions during shift.
[2018-01-21] MEDS: metroNIDAZOLE 500 MG Tablet PO ×3 (06:21→21:35)
--- NOTE | 2018-01-21 06:31 | NURSING ---
dressing changed at this time to pt chin. previous dressing was unable to be reinforced. Pt tolerated well.
[2018-01-21 06:36] LABS: Bedside Glucose 126 mg/dL (70-110)
[2018-01-21] MEDS: Acetaminophen 500 MG Tablet 1000 MG PO ×2 (06:40→21:36)
[2018-01-21] MEDS: oxyCODONE 5 MG Tablet 10 MG PO ×3 (06:40→17:16)
[2018-01-21] MEDS: Vancomycin IV 1,000 MG/200 ML BAG 200 MG IV (06:42)
[2018-01-21] MEDS: Gabapentin 600 MG Tablet PO ×2 (11:37→16:31)
[2018-01-21] MEDS: Senna/Docusate Sodium 1 Tablet PO ×2 (11:37→16:31)
[2018-01-21] MEDS: Furosemide 20 MG Tablet 60 MG PO ×2 (11:37→16:31)
[2018-01-21] MEDS: Glucerna Shake 120 ML LIQUID PO ×2 (11:38→16:32)
[2018-01-21] MEDS: Nystatin Powder 15gm Bottle 1 APPLIC TOPICAL ×2 (11:39→21:36)
[2018-01-21] MEDS: Flecainide 150 MG Tablet PO ×2 (11:41→21:34)
[2018-01-21] MEDS: Ipratropium Bromide 0.06% NASAL SPRAY 2 SPRAY NASAL ×2 (11:46→16:31)
[2018-01-21] MEDS: Menthol/Lanolin/Calamine/Znox 113 GM Tube 1 APPLIC TOPICAL ×2 (11:46→21:34)
[2018-01-21] MEDS: Aspirin 81 MG TAB.CHEW PO (11:46)
[2018-01-21] MEDS: 0.9% NaCl PICC Flush 10 ML IV ×2 (12:00→21:57)
[2018-01-21 12:06] LABS: Bedside Glucose 212 mg/dL (70-110)
--- NOTE | 2018-01-21 12:47 | NURSING ---
Pt care provided in room d/t pt remaining in isolation precautions during shift.
[2018-01-21 15:46] VITALS: BP 140/66; PULSE 56; RESP 18; TEMP 36.3; O2SAT 93
[2018-01-21 17:01] LABS: Bedside Glucose 137 mg/dL (70-110)
[2018-01-21 21:16] LABS: Bedside Glucose 144 mg/dL (70-110)
[2018-01-21] MEDS: Atorvastatin Calcium 20 MG Tablet PO (21:35)
[2018-01-21] MEDS: traZODone 50 MG Tablet PO (21:37)
[2018-01-21] MEDS: BMX LIQUID 180 ML 10 ML PO (22:12)
--- NOTE | 2018-01-21 23:58 | NURSING ---
Pt remaining in isolation precautions during shift. All care provided in room.
[2018-01-22] MEDS: Vancomycin IV 1,000 MG/200 ML BAG 200 MG IV (06:20)
[2018-01-22] MEDS: 0.9% NaCl IVPB Med Flush (250 mL) 15 ML IV (06:20)
[2018-01-22] MEDS: 0.9% NaCl PICC Flush 10 ML IV ×2 (06:20→21:06)
[2018-01-22 06:21] LABS: Bedside Glucose 136 mg/dL (70-110)
[2018-01-22] MEDS: metroNIDAZOLE 500 MG Tablet PO ×3 (06:34→20:48)
[2018-01-22] MEDS: oxyCODONE 5 MG Tablet 10 MG PO ×5 (06:36→20:59)
[2018-01-22] MEDS: Ipratropium Bromide 0.06% NASAL SPRAY 2 SPRAY NASAL (11:10)
[2018-01-22] MEDS: Aspirin 81 MG TAB.CHEW PO (11:10)
[2018-01-22] MEDS: Menthol/Lanolin/Calamine/Znox 113 GM Tube 1 APPLIC TOPICAL ×2 (11:11→20:48)
[2018-01-22] MEDS: Furosemide 20 MG Tablet 60 MG PO ×2 (11:12→17:55)
[2018-01-22] MEDS: Gabapentin 600 MG Tablet PO ×2 (11:13→17:55)
[2018-01-22] MEDS: Nystatin Powder 15gm Bottle 1 APPLIC TOPICAL ×2 (11:13→20:48)
[2018-01-22] MEDS: Polyethylene Glycol 3350 17 GM PACKET PO (11:13)
[2018-01-22] MEDS: Senna/Docusate Sodium 1 Tablet PO (11:14)
[2018-01-22] MEDS: Flecainide 150 MG Tablet PO ×2 (11:14→20:48)
[2018-01-22] MEDS: Acetaminophen 500 MG Tablet 1000 MG PO (11:15)
[2018-01-22] MEDS: Glucerna Shake 120 ML LIQUID PO ×2 (13:27→17:55)
[2018-01-22 14:01] LABS: Bedside Glucose 167 mg/dL (70-110)
[2018-01-22 16:00] VITALS: BP 127/73; PULSE 70; RESP 18; TEMP 36.3; O2SAT 95
[2018-01-22 17:00] LABS: Bedside Glucose 169 mg/dL (70-110)
[2018-01-22] MEDS: Atorvastatin Calcium 20 MG Tablet PO (20:48)
[2018-01-22] MEDS: traZODone 50 MG Tablet PO (20:48)
[2018-01-22 21:21] LABS: Bedside Glucose 199 mg/dL (70-110)
--- NOTE | 2018-01-22 22:05 | NURSING ---
Pt remains in contact isolation this shift. All care provided in room.
[2018-01-23] MEDS: oxyCODONE 5 MG Tablet 10 MG PO ×5 (00:06→20:47)
[2018-01-23] MEDS: metroNIDAZOLE 500 MG Tablet PO ×3 (06:50→20:40)
[2018-01-23 07:09] LABS: Vancomycin, Trough Level 15.5 ug/mL (5.0-15.0)
[2018-01-23 07:13] LABS: International Normalized Ratio 2.5
[2018-01-23] MEDS: Vancomycin IV 1,000 MG/200 ML BAG 200 MG IV (07:29)
[2018-01-23] MEDS: 0.9% NaCl IVPB Med Flush (250 mL) 15 ML IV (07:29)
[2018-01-23] MEDS: 0.9% NaCl PICC Flush 10 ML IV ×3 (07:29→18:22)
--- NOTE | 2018-01-23 08:52 | PCM.RX.CS ---
Consult Pharmacy has been consulted to manage selected antiobiotic: Vancomycin Type of Consult: Follow-up Suspected Infection: Skin/Soft tissue Prior Doses of Antibiotics Received/Current Regimen: VANCOMYCIN 1000MG IV Q24HRS: 01/22 @0620, 01/23 @0729 Labs: Sodium 138 mmol/L (136-145) 01/20/18 05:20 Potassium 3.7 mmol/L (3.5-5.1) 01/20/18 05:20 Chloride 97 mmol/L (98-107) L 01/20/18 05:20 Carbon Dioxide 32.0 mmol/L (21.0-32.0) 01/20/18 05:20 Anion Gap 9 (5-15) 01/20/18 05:20 BUN 15 mg/dL (7-18) 01/20/18 05:20 Creatinine 1.16 mg/dL (0.55-1.02) H 01/20/18 05:20 Est GFR (MDRD) Af Amer 60 mL/min (>60) 01/20/18 05:20 Est GFR (MDRD) Non-Af 49 mL/min (>60) L 01/20/18 05:20 BUN/Creatinine Ratio 12.9 RATIO (10-20) 01/20/18 05:20 Glucose 113 mg/dL (74-106) H 01/20/18 05:20 Vancomycin Trough 15.5 ug/mL (5.0-15.0) H 01/23/18 06:26 Random Vancomycin 18.1 ug/mL (0.0-15.0) H 01/17/18 03:46 Microbiology: Microbiology 01/10/18 15:15 Wound - Face Gram Stain - Final 01/10/18 15:15 Wound - Face Wound Culture - Final Coag Negative Staph Gram positive chino Alpha Hemolytic Streptococcus 12/30/17 20:30 Blood Culture (Wb) - Right Hand Blood Culture - Final No growth in 5 days. 12/30/17 20:40 Blood Culture (Wb) - Left Hand Blood Culture - Final No growth in 5 days. 12/30/17 16:00 Wound - Open/Non-Healing Wound Gram Stain - Final 12/30/17 16:00 Wound - Open/Non-Healing Wound Wound Culture - Final Meth. resistant Staph. aureus 12/30/17 16:00 Mucosa - Throat Throat Culture - Final Meth. resistant Staph. aureus 12/26/17 07:00 Urine Catheter - Catheter Urine Culture - Final Culture exhibits no growth. Goal Trough: 15-20 mcg/mL Pharmacy Plan for Drug Dosing: The patient had a trough drawn 01/23 @0626, which resulted in a value of 15.5 (drawn 24hrs from last administered dose). This is within the patient's goal trough range of 15-20. Will continue current therapy. Since the patient has had 2 troughs drawn within therapeutic range on this dose, will redraw a trough in 1 week to reassess. PLAN/RECOMMENDATIONS 1. Continue vancomycin 1000mg IV Q24hrs 2. Trough scheduled for 01/30/18 @0630 3. Pharmacy Service will continue to monitor and adjust dosing as required.
[2018-01-23] MEDS: Aspirin 81 MG TAB.CHEW PO (09:51)
[2018-01-23] MEDS: Gabapentin 600 MG Tablet PO ×2 (09:52→16:49)
[2018-01-23] MEDS: Furosemide 20 MG Tablet 60 MG PO ×2 (09:52→16:48)
[2018-01-23] MEDS: Flecainide 150 MG Tablet PO ×2 (09:53→20:40)
[2018-01-23] MEDS: Senna/Docusate Sodium 1 Tablet PO (09:53)
[2018-01-23] MEDS: Nystatin Powder 15gm Bottle 1 APPLIC TOPICAL ×2 (09:53→20:39)
[2018-01-23] MEDS: Polyethylene Glycol 3350 17 GM PACKET PO (09:53)
[2018-01-23] MEDS: Menthol/Lanolin/Calamine/Znox 113 GM Tube 1 APPLIC TOPICAL ×2 (09:54→20:39)
[2018-01-23 10:11] LABS: Bedside Glucose 168 mg/dL (70-110)
[2018-01-23 14:15] LABS: Bedside Glucose 187 mg/dL (70-110)
--- NOTE | 2018-01-23 14:38 | CASEMGMT ---
Insurance Net update due on 01/24/18. Auth#[id number] SULTANA Francois, HISTORY FACULTY MEMBER
--- NOTE | 2018-01-23 14:39 | CASEMGMT ---
Social Work Telephone call to Linda at [facility] to check status of Medicaid application. Linda reporting that resident will need to set up a QIT prior to qualifying for Medicaid. Linda reporting to be planning to contact resident brother, Brijesh in regards to QIT process as Brijesh is listed on medicaid application. Will continue to follow. SULTANA Francois, PORCELAIN WAXER
--- NOTE | 2018-01-23 15:27 | PN.ID_ITS ---
Patient Problems: Active and Suspected Problems (Last Reviewed 01/09/18 @ 14:08 by Kari Womack) Wound abscess (Acute) Squamous cell carcinoma, face (Acute) Subjective: Feeling ok. No fever. Some loose stool. - Physical Exam General: Alert, Cooperative, No apparent distress Lungs: Clear to auscultation, Normal air movement Cardiovascular: Regular rate, Regular Rhythm Abdomen: Soft, Non Tender, Non-Distended Skin: Ulcer/ Wound - on chin with surrounding induration Vital Signs Temp Pulse Resp BP Pulse Ox 97.3 F L 70 18 127/73 H 95 01/22/18 16:00 01/22/18 16:00 01/22/18 16:00 01/22/18 16:00 01/22/18 16:00 Oxygen Flow Rate (L/min) 97 Oxygen Delivery Method Room Air Weight: 102.285 kg Body Mass Index (BMI) 42.0 Finger Stick Blood Glucose 117 Intake and Output for Last 24 Hours 01/22/18 01/22/18 01/23/18 00:59 23:59 23:59 Intake Total 240 / 240 Balance 240 / 240 Laboratory Tests Past 24 Hrs 01/23/18 01/23/18 06:26 06:26 PT 27.0 H INR 2.5 Vancomycin Trough 15.5 H POC Glucose 01/23/18 01/23/18 01/22/18 14:11 10:06 21:15 POC Glucose 187 H 168 H 199 H 01/22/18 16:58 POC Glucose 169 H Medical Necessity - Tobacco Use Smoking Status: Never smoker Tobacco Use: Non-smoker Route of nutrition/ use of supplements: [] Nutritional Intake: [] IV Site: [] Muro Catheter: [] - Assessment/Plan Antibiotics: [] Assessment/Plan: [] Active and Suspected Problems (Last Reviewed 12/04/17 @ 01:53 by Sanjay Rhodes MD) Wound abscess (Acute) Squamous cell carcinoma, face (Acute) Wound relatively stable, but only minimal improvement in size, still with pain, redness, and drainage. Had bone biopsy previously that was negative for infection but (+) for squamous cell cancer. Started iv vanc 01/10. Repeat wound cx with CoNS, GPR, and strep, consistent with oral/skin rosana. No MRSA. 01/12 added clinda but had n/v/d, so changed to flagyl. Residential plan is difficult if she continues to re-contaminate her wound. It may not heal due to underlying cancer, but it doesn't sound like surgery will happen until infection is gone, but it keeps on getting re-infected because it won't heal. May have to plan on continuing iv vanc for total 6 week course until surgeon feels comfortable with operating. Stop date vanc planned for 02/21/18. Weekly bmp, cbc, and vanc trough while on iv vanc. Ulcer is not improved despite iv abx and now with new facial swelling adjacent to ulcer. CT shows abscess. Right now it appears that she is failing medical therapy and will need debridement/resection in order to make any progress. Dr. Soto with plastic surgery consulted; may need transfer to tertiary care center. Will follow.
[2018-01-23 16:00] VITALS: BP 154/88; PULSE 64; RESP 18; TEMP 36.1; O2SAT 94
--- NOTE | 2018-01-23 16:00 | NURSING ---
Addendum entered by Kay Condon 01/24/18 11:04: Charles returned call last evening reporting that Dr Christianson will be calling to transfer pt to [facility] today. Original Note: message left for dr christianson regarding CT scan results of chin and possibly needing transfered to Tertiary center. Number left for Dr Christianson to call DR Soto with questions or concerns.
--- NOTE | 2018-01-23 16:17 | PN.SURG_ITS ---
Patient Problems: Active and Suspected Problems (Last Reviewed 01/09/18 @ 14:08 by Kari Womack) Wound abscess (Acute) Squamous cell carcinoma, face (Acute) Subjective: Postop #48 Patient is known to me. She had surgery on 12/06/17 where she underwent surgical preparation right chin with incision and drainage and excisional debridement MRSA abscess (6 cm2) and partial ostectomy anterior mandible for osteomyelitis. She was discharged home on 12/10/17 with daily Silver dressing changes. Cultures at that time showed MRSA and Haemophilus parainfluenzae. She was discharged on Keflex and Doxycycline. Patient states she had trouble keeping food out of the wound at times. She came back to the ED yesterday because of increasing pain and purulent drainage that was foul smelling according to the patient. She denied any fever. Her WBC in the ED was 9.1. She was started on Vancomycin. A wound culture was obtained. Additional organisms were noted from the previous culture which showed Sphingomonas paucimobilis and Prevotella oralis. In addition to the Vancomycin, Ceftriaxone and Flagyl were added. The pathology showed squamous cell carcinoma with positive margins both peripheral and deep. She had a lower lip carcinoma excised a year ago by a Plastic Surgeon in [place] at the [facility]. She went back to him after her recent discharge. He recommended additional excision would be needed until clear margins are obtained. This would be followed by complex facial reconstruction. However, complex facial reconstruction will need to wait until the current MRSA infection has been treated and cleared. She has since been discharged to TCU. The wound stabilized and is getting normal saline wet to dressing changes. Recently patient has been complaining of persistent pain in the lower lip and chin area with increasing firmness and swelling. Recent wound culture showed Alpha hemolytic Streptococcus, Gram positive chino, and Coag negative Staph, surface contaminants. Recent CT on 01/19/18 showed large soft tissue mass lower lip and chin with destruction of the mandible with ulceration or post-surgical defect and possible abscess formation. Her WBC on 01/14/18 was 6.9. Since this ulcer won't heal until more definitive surgical excision of the cancer is done, Infectious Diseases felt additional antibiotics would be prudent to minimize worsening of the infection. So Vancomycin and Flagyl were restarted. - Physical Exam General: Alert, Oriented x3 HEENT: PERRLA, EOMI Oral: Moist Mucosa Neck: Supple, - - some smaller nodes were palpable in the submanibular area. Could be related to her previous infection or could be cancer related. Skin: Ulcer/ Wound - lower lip and chin ulcer is stable. Some granulation tissue is noted. Bone is palpable but not exposed. The surrounding periwound area is a little red and could be related to the tape. On either side of the ulcer are areas of firmness and soft tissue masses. No ulceration. Soft tissue masses are tender to palpation. The mass which encompasses the cancer ulceration measures 8 x 3 cm. No cellulitis, no fluctuance, no purulent drainage. Lymphatic: - - some smaller cervical nodes palpable in the submandibular areas. Neurological: Cranial nerves II-XII grossly intact - except for lip range of motion secondary to the extent of cancer resection on her lower lip and chin area. Psych/Mental Status: Normal Affect, Appropriate Vital Signs Temp Pulse Resp BP Pulse Ox 97.3 F L 70 18 127/73 H 95 01/22/18 16:00 01/22/18 16:00 01/22/18 16:00 01/22/18 16:00 01/22/18 16:00 Oxygen Flow Rate (L/min) 97 Oxygen Delivery Method Room Air Weight: 225 lb 8 oz Body Mass Index (BMI) 42.0 Finger Stick Blood Glucose 117 Intake and Output for Last 24 Hours 01/22/18 01/22/18 01/23/18 00:59 23:59 23:59 Intake Total 240 / 240 Balance 240 / 240 Laboratory Tests Past 24 Hrs 01/23/18 01/23/18 06:26 06:26 PT 27.0 H INR 2.5 Vancomycin Trough 15.5 H POC Glucose 01/23/18 01/23/18 01/22/18 14:11 10:06 21:15 POC Glucose 187 H 168 H 199 H 01/22/18 16:58 POC Glucose 169 H Diagnostic Data Soft Tissue Neck CT 01/04/18 09:25 IMPRESSION: Soft tissue mass with central ulceration along the anterior aspect of the central mandible with underlying bony destruction. Electronically Signed: Karlos Felipe MD at 13:52 EDT Tel [phone], Service support , CT Facial Bones with Contrast 01/19/18 10:59 IMPRESSION: Large soft tissue mass of the lower lip and chin with destruction of the mandible, ulceration or postsurgical defect, and abscess formation. Electronically Signed: Arnaud Berkowitz MD at 15:54 EDT , Service support , Medical Necessity - Tobacco Use Smoking Status: Never smoker Tobacco Use: Non-smoker Assessment/Plan All Active Problems (Last Reviewed 01/09/18 @ 14:08 by Kari Womack) Wound abscess (Acute) Squamous cell carcinoma, face (Acute) Osteomyelitis of mandible (Acute) Abscess of chin (Acute) Methicillin resistant Staphylococcus aureus infection (Acute) Facial cellulitis (Acute) History of facial surgery (Resolved) History of tonsillectomy (Resolved) History of bilateral knee replacement (Resolved) History of cataract extraction (Resolved) History of syncope (Acute) Syncope (Acute) Acute asthmatic bronchitis (Resolved) Acute exacerbation of CHF (congestive heart failure) (Resolved) Atrial fibrillation with RVR (Resolved) Paroxysmal A-fib (Resolved) SOB (shortness of breath) (Resolved) 1. Nonhealing MRSA ulcer right chin. 2. MRSA. 3. 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 4. Radiographic osteomyelitis anterior mandible. 5. Personal history of skin cancer. 6. Personal history of lower lip cancer. 7. Diabetes mellitus. 8. s/p surgical preparation right chin with incision and drainage and excisional debridement MRSA abscess (6 cm2) and partial ostectomy anterior mandible for osteomyelitis. Continue wound care with saline dressing changes twice a day. Continue Vancomycin and Flagyl until definitive surgical resection is done. Eating is a little better as she is able to keep more of her food in her mouth. She still has some drooling wit liquids but not as often. Encourage nutritional supplementation with protein to help the healing process. CT reviewed. The large soft tissue mass represents recurrent cancer which is growing. The lymph nodes seen on CT could be related to her previous infection or could be related to her cancer. Additional surgery is necessary, but another debridement is not what she needs. She needs aggressive surgical resection of the squamous cell cancer to clear margins and biopsy of the mandible. An anterior mandibulectomy is likely. Complex soft tissue reconstruction would be necessary with a microvascular free tissue transfer along with bone, most likely the fibula. This complex surgery would need to be done at a tertiary center. I talked to Dr. Rodgers, Plastic Surgeon, today from [facility] who has been involved with her care in the past. He agreed that the cancer is progressing and needs to be resected. She is a high risk patient with her multiple medical co-morbidities, and he doesn't want to wait. He stated he would like to have the patient transferred to a hospital in [place] to be evaluated by the Head and Neck Cancer Team and decide her surgical game plan.
[2018-01-23] MEDS: Glucerna Shake 120 ML LIQUID PO (16:49)
[2018-01-23 16:50] LABS: Bedside Glucose 231 mg/dL (70-110)
[2018-01-23] MEDS: Acetaminophen 500 MG Tablet 1000 MG PO (16:55)
[2018-01-23 18:57] LABS: Absolute Lymphocyte Count 1.07 X10^3/ul (0.83-4.51); Absolute Neutrophil Count 6.1 X10^3/uL (2.0-7.7); Basophil# 0.02 X10^3/uL; Basophil% 0.2 % (0-1); Eosinophil# 0.12 X10^3/uL; Eosinophils% 1.5 % (0-5); Hematocrit 37.4 % (37-47); Hemoglobin 11.3 g/dl (12.0-15.0); Lymphocyte # 1.07 X10^3/ul (4.0); Lymphocyte % 13.2 % (19-41); Mean Corp Hgb Conc 30.2 g/gl (32-36); Mean Corpuscular Hgb 27.4 pg (27.0-32.0); Mean Corpuscular Volume 90.8 fL (81-99); Mean Platelet Vol. 11.6 fl (6.2-12.0); Monocyte# 0.74 X10^3/uL; Monocyte% 9.1 % (0-10); Neutrophil # 6.12 X10^3/uL (2.7-7.7); Neutrophil % 75.8 % (47-70); Platelet Count 329 K/mm3 (150-450); RBC Distribution Width CV 14.5 % (11.6-14.6); RBC Distribution Width SD 46.8 fl (35.1-43.9); Red Blood Count 4.12 M/mm3 (4.2-5.4); White Blood Count 8.1 K/mm3 (4.4-11.0)
[2018-01-23 19:05] LABS: POSITIVE COUNT NO; POSITIVE DIFFERENTIAL NO; POSITIVE MORPHOLOGY NO
[2018-01-23 19:49] LABS: Anion Gap 7 (5-15); BUN 13 mg/dL (7-18); BUN/Creat Ratio 10.2 RATIO (10-20); Calcium,Total 8.6 mg/dL (8.5-10.1); Chloride 97 mmol/L (98-107); Creatinine, Serum 1.27 mg/dL (0.55-1.02); EST Glomerular Filtration Rate 44 mL/min (>60); Est Glom Filt Rate - Afr Amer 54 mL/min (>60); Estimated Creatinine Clearance 34.58 ml/min; Glucose 226 mg/dL (74-106); Potassium 4.1 mmol/L (3.5-5.1); Sodium Level 136 mmol/L (136-145)
[2018-01-23 20:19] LABS: Erythrocyte Sedimentation Rate 47 mm/hr (0-30)
[2018-01-23] MEDS: traZODone 50 MG Tablet PO (20:40)
[2018-01-23] MEDS: Atorvastatin Calcium 20 MG Tablet PO (20:40)
[2018-01-23 21:21] LABS: Bedside Glucose 214 mg/dL (70-110)
--- NOTE | 2018-01-24 02:22 | NURSING ---
All care provided in room d/t pt remaining in contact isolation for MRSA in wound.
[2018-01-24] MEDS: oxyCODONE 5 MG Tablet 10 MG PO ×3 (04:49→17:56)
[2018-01-24] MEDS: metroNIDAZOLE 500 MG Tablet PO ×3 (04:50→20:43)
[2018-01-24] MEDS: Acetaminophen 500 MG Tablet 1000 MG PO ×2 (04:50→15:09)
[2018-01-24] MEDS: Vancomycin IV 1,000 MG/200 ML BAG 200 MG IV (06:53)
[2018-01-24] MEDS: 0.9% NaCl IVPB Med Flush (250 mL) 15 ML IV (06:54)
[2018-01-24] MEDS: 0.9% NaCl PICC Flush 10 ML IV (06:55)
[2018-01-24 06:56] LABS: Bedside Glucose 171 mg/dL (70-110)
--- NOTE | 2018-01-24 07:26 | NURSING ---
Wound photo: chin :late enty from 01/23/18 d/t inability to get into [facility]
[2018-01-24] MEDS: Gabapentin 600 MG Tablet PO ×2 (09:55→17:47)
[2018-01-24] MEDS: Flecainide 150 MG Tablet PO ×2 (09:55→20:43)
[2018-01-24] MEDS: Furosemide 20 MG Tablet 60 MG PO ×2 (09:55→17:47)
[2018-01-24] MEDS: Senna/Docusate Sodium 1 Tablet PO (09:55)
[2018-01-24] MEDS: Menthol/Lanolin/Calamine/Znox 113 GM Tube 1 APPLIC TOPICAL ×2 (09:56→20:44)
[2018-01-24] MEDS: Aspirin 81 MG TAB.CHEW PO (09:56)
[2018-01-24] MEDS: Nystatin Powder 15gm Bottle 1 APPLIC TOPICAL ×2 (09:57→20:43)
--- NOTE | 2018-01-24 10:50 | CASEMGMT ---
Social Work Nursing reporting that resident may be transitioned to [facility] per surgeon recommendations to have another surgery. This case management social worker meeting with resident in room to confirm that resident is agreeable and aware of possible transition. Resident voicing to be aware of possible transition and surgeon recommendation. Resident voicing to want to proceed with surgery as recommended by the surgeon but that resident brother and sister are not wanting resident to have further surgery. Resident reporting to be making the choice to have surgery regardless of what resident siblings think/feel. This case management social worker inquiring as to why residents siblings are not agreeable to surgery for resident. Resident voicing to be unsure and to believe that resident siblings think resident will in surgery. This case management social worker voicing understanding and reframing resident siblings thoughts/feelings as concern for resident. Resident voicing understanding to this. This case management social worker then broaching topic of facilities for resident to transition to after surgery. Resident voicing to not be sure about going to the [facility] by resident sister Willa and to now be interested in a facility in [place] due to being closer to the surgeon. Resident requesting [facility] as first option and then after that simply a facility that is in network with resident insurance and is within the same area as [facility], as this is close to resident brother. Support given. Telephone call to [facility], they have no openings and have a long waiting list. Spoke with resident in room again, Resident choosing [facility] - [phone] as second option. Telephone call to [facility]. [facility] reporting to have openings and to be able to review resident information. [facility]ita aware that resident may be coming from [facility] after possible surgery. Clinical information faxed to [phone]. Telephone call to Willa, sister per resident request. This case management social worker updating Willa on all above information. Resident in fact voicing concerns of resident having further surgery done and resident ability to be able to live through surgery. This case management social worker acknowledging Willa's concerns for resident. Willa also voicing to be aware that it is resident choice as to whether or not resident will have continued surgery intervention. Support given. Will continue to follow. Ritika Galarza, DYE LAB TECHNICIAN, DIRECTOR STAFFING
--- NOTE | 2018-01-24 10:56 | PCM.PN.ID ---
Patient Problems: Active and Suspected Problems (Last Reviewed 01/09/18 @ 14:08 by Kari Womack) Wound abscess (Acute) Squamous cell carcinoma, face (Acute) Subjective: Feeling ok, chin sore, no fever - Physical Exam General: Alert, Cooperative, No apparent distress Lungs: Clear to auscultation, Normal air movement Cardiovascular: Regular rate, Regular Rhythm Abdomen: Soft, Non Tender, Non-Distended Skin: Ulcer/ Wound - chin with surrounding induration Vital Signs Temp Pulse Resp BP Pulse Ox 97.0 F L 64 18 154/88 H 94 01/23/18 16:00 01/23/18 16:00 01/23/18 16:00 01/23/18 16:00 01/23/18 16:00 Oxygen Flow Rate (L/min) 97 Oxygen Delivery Method Room Air Weight: 102.285 kg Body Mass Index (BMI) 42.0 Finger Stick Blood Glucose 117 Intake and Output for Last 24 Hours 01/22/18 01/23/18 01/24/18 23:59 23:59 23:59 Intake Total 560 / 560 Balance 560 / 560 Laboratory Tests Past 24 Hrs 01/23/18 01/23/18 18:20 18:20 WBC 8.1 RBC 4.12 L Hgb 11.3 L Hct 37.4 MCV 90.8 MCH 27.4 MCHC 30.2 L RDW 14.5 RDW Differential 46.8 H Plt Count 329 MPV 11.6 Immature Gran % (Auto) 0.200 Neut % (Auto) 75.8 H Lymph % (Auto) 13.2 L Caroline % (Auto) 9.1 Eos % (Auto) 1.5 Baso % (Auto) 0.2 Absolute Neuts (auto) 6.1 Absolute Lymphs (auto) 1.07 Total Counted Not Reportable ESR 47 H Sodium 136 Potassium 4.1 Chloride 97 L Carbon Dioxide 32.0 Anion Gap 7 BUN 13 Creatinine 1.27 H Estim Creat Clear Calc 34.58 Est GFR (MDRD) Af Amer 54 L Est GFR (MDRD) Non-Af 44 L BUN/Creatinine Ratio 10.2 Glucose 226 H Calcium 8.6 C-React Prot Ext Range 26.00 H POC Glucose 01/24/18 01/23/18 01/23/18 06:42 21:16 16:44 POC Glucose 171 H 214 H 231 H 01/23/18 14:11 POC Glucose 187 H Medical Necessity - Tobacco Use Smoking Status: Never smoker Tobacco Use: Non-smoker Route of nutrition/ use of supplements: [] Nutritional Intake: [] IV Site: [] Muro Catheter: [] - Assessment/Plan Antibiotics: [] Assessment/Plan: [] Active and Suspected Problems (Last Reviewed 12/04/17 @ 01:53 by Sanjay Rhodes MD) Wound abscess (Acute) Squamous cell carcinoma, face (Acute) Had bone biopsy previously that was negative for infection but (+) for squamous cell cancer. Started iv vanc 01/10. Repeat wound cx with CoNS, GPR, and strep, consistent with oral/skin rosana. No MRSA. 01/12 added clinda but had n/v/d, so changed to flagyl. Ulcer stable despite iv abx and now with new facial swelling adjacent to ulcer. CT shows abscess vs worsening cancer. Right now it appears that she is failing medical therapy and will need debridement/resection in order to make any progress. Dr. Soto with plastic surgery consulted; plan is for transfer to tertiary care center. Will follow.
--- NOTE | 2018-01-24 11:03 | NURSING ---
pt remains in isolation, all treatments done in pt room
--- NOTE | 2018-01-24 13:41 | CASEMGMT ---
Insurance Clinical information sent. Pending continued stay approval at this time. Auth#[id number] SULTANA Francois, DRY KILN WORKER
--- NOTE | 2018-01-24 14:53 | NURSING ---
Spoke with Michelle at Dr Rodgers's office regarding his conversation with Dr Soto. Michelle is to get the message to Dr Rodgers, he has been in surgery all day.
[2018-01-24] MEDS: Glucerna Shake 120 ML LIQUID PO ×2 (15:06→17:48)
[2018-01-24 16:00] VITALS: BP 133/58; PULSE 63; RESP 20; TEMP 36.8; O2SAT 93
--- NOTE | 2018-01-24 17:05 | CASEMGMT ---
Social Work Per nursing staff, resident to be transferred to [facility] tomorrow. Spoke with resident in room. Resident agreeable to transfer. This social service assistant to attempt to contact planner at [facility] for continuity of care tomorrow per resident request. Resident sister Willa also aware of plan. Support given to all. PLAN: Discharge to [facility] per surgeons recommendation. Ritika Galarza, EQUIPMENT HIRE MANAGER, LATENT FINGERPRINT EXAMINER
[2018-01-24 17:10] LABS: Bedside Glucose 222 mg/dL (70-110)
--- NOTE | 2018-01-24 19:50 | PCM.DC ---
- Discharge Diagnoses Current Active Problems: Current Active and Chronic Problems (Last Reviewed 01/09/18 @ 14:08 by Kari Womack) Wound abscess (Acute) Squamous cell carcinoma, face (Acute) Edema (Chronic) Atrial fibrillation (Chronic) Sleep apnea (Chronic) GERD (gastroesophageal reflux disease) (Chronic) Insomnia (Chronic) Neuropathic pain (Chronic) You will use the following diet at home:: No restrictions, Regular Your food should be the consistency of: Regular Your liquids should be the consistency of: Regular/Thin Discharge Activity: Return to Normal Activity, Use Walker Weight Bearing Status: Weight bearing as tolerated Call your doctor if you observe: Fever of 101 or Higher, Inability to urinate, Inability to have a bowel movement, Shortness of breath, Chest pain, Uncontrolled pain Allergies/Adverse Reactions: Allergies ampicillin Allergy (Severe, Verified 01/09/18 14:07) Anaphylaxis hydrocodone bitartrate [From Vicodin] Allergy (Severe, Verified 01/09/18 14:07) Itching Penicillins Allergy (Severe, Verified 01/09/18 14:07) Anaphylaxis clarithromycin [From Biaxin] Allergy (Verified 01/09/18 14:07) Rash Red and itchy venom-honey bee [bee venom (honey bee)] Allergy (Verified 01/09/18 14:07) Nausea/Vom/Diarrhea Medications to take at Discharge Metformin HCl [Glucophage] 500 mg PO BREAKFAST 04/13/15 traZODone [Desyrel] 50 mg PO QHS 04/13/15 Albuterol Inhaler [Ventolin Hfa] 2 puff INHALATION Q4H PRN PRN #1 inhaler 08/14/16 Gabapentin [Neurontin] 600 mg PO TID 01/26/17 atorvastatin 20 mg tablet 20 mg PO QHS tab 03/09/17 insulin NPH isophane U- 100 human 100 unit/mL subcutaneous suspension 18 unit SC QPM 04/18/17 Furosemide 40 mg PO TID 08/03/17 Ipratropium [place] 0.06% [ATROVENT NASAL SPRAY] 2 spray NASAL BID 11/18/17 Aspirin [Aspirin, Baby] 81 mg PO DAILY@0800 12/23/17 Flecainide Acetate 150 mg PO Q12H 12/23/17 Potassium Chloride [K-Dur] 40 meq PO QDAY 12/23/17 0.9% Saline Lock 10 ml IV UD PRN syringe 01/17/18 Acetaminophen [Tylenol] 1,000 mg PO Q8H PRN PRN tablet 01/17/18 Bisacodyl [Dulcolax] 10 mg PO DAILY PRN tablet 01/17/18 Bmx Liquid 10 ml PO Q3H PRN PRN ml 01/17/18 Clindamycin [Cleocin] 300 mg PO TID capsule 01/17/18 Glucerna Shake 120 ml PO TIDCM liquid 01/17/18 Insulin Glargine [Lantus SoloStar Pen] 5 units SC BIDCM pen 01/17/18 Menthol/Lanolin/Calamine/Znox [Calmoseptine Ointment] 1 applic TOPICAL BID@0800,2200 tube 01/17/18 Nystatin Powder [Mycostatin Powder] 1 applic TOPICAL BID@0800,2200 bottle 01/17/18 Polyethylene Glycol 3350 [Miralax] 17 gm PO DAILY@0800 packet 01/17/18 Senna/Docusate Sodium [Senokot-S] 1 tablet PO BID@0800,1800 tablet 01/17/18 Vancomycin IV Pharmacy to Dose 1 ea IV PRN PRN each 01/17/18 Vancomycin IV [Vancomycin] 1,000 mg IV Q24H bag 01/17/18 Warfarin [Coumadin] 3 mg PO DAILY@1700 tablet 01/17/18 Primary Care Physician: Nigel Hoang Jr., MD [Primary Care Provider] - Please follow up with your Primary Care Physician in: After hospitalization. Test Results: Test results from this visit will be discussed in further detail at your follow-up appointment, if applicable. Please Follow Up With: cervino plastic surgeon When: 2 weeks. Please Follow Up With: Daryl Henderson MD When: 2 weeks. Proposed Discharge Date: 01/25/18
--- NOTE | 2018-01-24 19:54 | DCINST_ITS ---
- Discharge Diagnoses Current Active Problems: Current Active and Chronic Problems (Last Reviewed 01/09/18 @ 14:08 by Kari Womack) Wound abscess (Acute) Squamous cell carcinoma, face (Acute) Edema (Chronic) Atrial fibrillation (Chronic) Sleep apnea (Chronic) GERD (gastroesophageal reflux disease) (Chronic) Insomnia (Chronic) Neuropathic pain (Chronic) You will use the following diet at home:: No restrictions, Regular Your food should be the consistency of: Regular Your liquids should be the consistency of: Regular/Thin Discharge Activity: Return to Normal Activity, Use Walker Weight Bearing Status: Weight bearing as tolerated Call your doctor if you observe: Fever of 101 or Higher, Inability to urinate, Inability to have a bowel movement, Shortness of breath, Chest pain, Uncontr olled pain Allergies/Adverse Reactions: Allergies ampicillin Allergy (Severe, Verified 01/09/18 14:07) Anaphylaxis hydrocodone bitartrate [From Vicodin] Allergy (Severe, Verified 01/09/18 14:07) Itching Penicillins Allergy (Severe, Verified 01/09/18 14:07) Anaphylaxis clarithromycin [From Biaxin] Allergy (Verified 01/09/18 14:07) Rash Red and itchy venom-honey bee [bee venom (honey bee)] Allergy (Verified 01/09/18 14:07) Nausea/Vom/Diarrhea Medications to take at Discharge Metformin HCl [Glucophage] 500 mg PO BREAKFAST 04/13/15 traZODone [Desyrel] 50 mg PO QHS 04/13/15 Albuterol Inhaler [Ventolin Hfa] 2 puff INHALATION Q4H PRN PRN #1 inhaler 08/14/16 Gabapentin [Neurontin] 600 mg PO TID 01/26/17 atorvastatin 20 mg tablet 20 mg PO QHS tab 03/09/17 insulin NPH isophane U- 100 human 100 unit/mL subcutaneous suspension 18 unit SC QPM 04/18/17 Furosemide 40 mg PO TID 08/03/17 Ipratropium [place] 0.06% [ATROVENT NASAL SPRAY] 2 spray NASAL BID 11/18/17 Aspirin [Aspirin, Baby] 81 mg PO DAILY@0800 12/23/17 Flecainide Acetate 150 mg PO Q12H 12/23/17 Potassium Chloride [K-Dur] 40 meq PO QDAY 12/23/17 0.9% Saline Lock 10 ml IV UD PRN syringe 10/30/18 Acetaminophen [Tylenol] 1,000 mg PO Q8H PRN PRN tablet 01/17/18 Bisacodyl [Dulcolax] 10 mg PO DAILY PRN tablet 01/17/18 Bmx Liquid 10 ml PO Q3H PRN PRN ml 01/17/18 Clindamycin [Cleocin] 300 mg PO TID capsule 01/17/18 Glucerna Shake 120 ml PO TIDCM liquid 01/17/18 Insulin Glargine [Lantus SoloStar Pen] 5 units SC BIDCM pen 01/17/18 Menthol/Lanolin/Calamine/Znox [Calmoseptine Ointment] 1 applic TOPICAL BID@0800,2200 tube 01/17/18 Nystatin Powder [Mycostatin Powder] 1 applic TOPICAL BID@0800,2200 bottle 01/17/18 Polyethylene Glycol 3350 [Miralax] 17 gm PO DAILY@0800 packet 01/17/18 Senna/Docusate Sodium [Senokot-S] 1 tablet PO BID@0800,1800 tablet 01/17/18 Vancomycin IV Pharmacy to Dose 1 ea IV PRN PRN each 01/17/18 Vancomycin IV [Vancomycin] 1,000 mg IV Q24H bag 01/17/18 Warfarin [Coumadin] 3 mg PO DAILY@1700 tablet 01/17/18 Primary Care Physician: Nigel Hoang Jr., MD [Primary Care Provider] - Please follow up with your Primary Care Physician in: After hospitalization. Test Results: Test results from this visit will be discussed in further detail at your follow- up appointment, if applicable. Please Follow Up With: cervino plastic surgeon When: 2 weeks. Please Follow Up With: Daryl Henderson MD When: 2 weeks. Proposed Discharge Date: 01/25/18
[2018-01-24] MEDS: traZODone 50 MG Tablet PO (20:43)
[2018-01-24] MEDS: Atorvastatin Calcium 20 MG Tablet PO (20:43)
[2018-01-24 20:51] LABS: Bedside Glucose 240 mg/dL (70-110)
[2018-01-25] MEDS: oxyCODONE 5 MG Tablet 10 MG PO ×3 (00:15→08:56)
[2018-01-25] MEDS: Acetaminophen 500 MG Tablet 1000 MG PO ×2 (00:19→08:56)
[2018-01-25] MEDS: 0.9% NaCl IVPB Med Flush (250 mL) 15 ML IV (06:00)
[2018-01-25] MEDS: Vancomycin IV 1,000 MG/200 ML BAG 200 MG IV (06:00)
[2018-01-25] MEDS: metroNIDAZOLE 500 MG Tablet PO (06:00)
[2018-01-25] MEDS: 0.9% NaCl PICC Flush 10 ML IV (06:01)
[2018-01-25 06:46] LABS: Bedside Glucose 167 mg/dL (70-110)
--- NOTE | 2018-01-25 17:02 | CASEMGMT ---
Insurance Notified insurance of resident discharge on 01/25/18 to acute hospital setting. Auth#[id number] SULTANA Francois, PICKLE CUTTER
--- NOTE | 2018-02-07 09:44 | MDS.RN ---
Information for the mds was obtained from review of the clinical record, interview of resident, staff, and direct observation of resident's care. resident remained in room isolation for lookback period, all care completed in room.
== END 2018-01-25 09:15 | disposition short-term general hospital (02) | DRG 292 ==
PROVIDERS: Internal Medicine Infectious Disease; Admitting Provider Family Medicine Geriatric Medicine; Family Provider Internal Medicine; PCP Internal Medicine; Referring Provider Family Medicine Geriatric Medicine; Visit Provider Family Medicine Geriatric Medicine
DX: I50.32 Chronic diastolic (congestive) heart failure (principal); Z68.41 Body mass index [BMI] 40.0-44.9, adult; L02.01 Cutaneous abscess of face; R53.81 Other malaise; C44.329 Squamous cell carcinoma of skin of other parts of face; K21.9 Gastro-esophageal reflux disease without esophagitis; I48.0 Paroxysmal atrial fibrillation; Z23 Encounter for immunization; I25.10 Atherosclerotic heart disease of native coronary artery without angina pectoris; E78.5 Hyperlipidemia, unspecified; D50.9 Iron deficiency anemia, unspecified; I11.0 Hypertensive heart disease with heart failure; E66.01 Morbid (severe) obesity due to excess calories; Z71.3 Dietary counseling and surveillance; G47.33 Obstructive sleep apnea (adult) (pediatric); J44.9 Chronic obstructive pulmonary disease, unspecified; F41.9 Anxiety disorder, unspecified; F32.9 Major depressive disorder, single episode, unspecified; E87.6 Hypokalemia; E11.9 Type 2 diabetes mellitus without complications; Z86.14 Personal history of Methicillin resistant Staphylococcus aureus infection; B95.62 Methicillin resistant Staphylococcus aureus infection as the cause of diseases classified elsewhere; B35.1 Tinea unguium; H60.90 Unspecified otitis externa, unspecified ear; B35.4 Tinea corporis; M27.2 Inflammatory conditions of jaws
CPT/HCPCS: 36415; 36569; 70491; 71045; 74018; 80048; 80202; 81001; 82962; 85025; 85610; 85652; 86140; 87040; 87070; 87077; 87086; 87186; 87205; 87640; 97110; 97116; 97163; 97166; 97530; 97535; 97802; J7050; Q9967; 90670; A4216

== ENCOUNTER → 2018-01-04 09:23 | Outpatient (CLI) | payer MEDICARE, SELFPAY | PROVIDERS: Family Provider Internal Medicine; PCP Internal Medicine; Referring Provider Family Medicine Geriatric Medicine; Visit Provider Family Medicine Geriatric Medicine | DX: M86.9 Osteomyelitis, unspecified (principal) ==

== ENCOUNTER → 2018-01-19 10:54 | Outpatient (CLI) | payer MEDICARE, SELFPAY ==
--- NOTE | 2018-01-19 10:58 | CT_ITS ---
STUDY: CT BRAIN WITH AND WITHOUT CONTRAST REASON FOR EXAM: Female, 67 years old. Headache RADIATION DOSAGE (If Supplied By Facility): CTDIvol = ( 44.99 ) mGy, DLP = ( 779.24 ) mGycm TECHNIQUE: Transaxial CT imaging of the brain was performed pre and post contrast administration. The examination was performed with intravenous administration of 100 ml of Isovue 300 contrast material. Individualized dose optimization techniques were used for this CT. COMPARISON: 07/25/2016 FINDINGS: Normal soft tissue structures. Normal calvarium. Normal size ventricles and extra-axial spaces for the patient's age. Normal white matter tracts of the cerebral hemispheres. Normal basal ganglia and thalami. Normal brainstem. Normal cerebellum. There is no intracranial hemorrhage. There are no findings of an acute ischemic infarction. Normal visualized paranasal sinuses. No suspicious enhancing lesion CT/Brain/Head W/WO Contrast IMPRESSION: Age consistent changes, no acute findings Electronically Signed: Luigi Jo MD at 13:51 EDT , Service support ,
--- NOTE | 2018-01-19 10:59 | CT_ITS ---
STUDY: CT FACIAL BONES WITH CONTRAST REASON FOR EXAM: Female, 67 years old. Status post cancer removal from left RADIATION DOSAGE (If Supplied By Facility): CTDIvol = ( 29.38 ) mGy, DLP = ( 598.88 ) mGycm TECHNIQUE: The patient was scanned in a multi detector CT scanner. Transaxial imaging was performed following the intravenous administration of 100 ml of Isovue 300 contrast material. Sagittal and coronal images were reconstructed. Individualized dose optimization techniques were used for this CT. COMPARISON: CT neck January 04, 2018. FINDINGS: There is 7.5 x 3.2 cm mass of the lower lip and chin with focal destruction of the mandible. There is large focal soft tissue defect at the anterior aspect with ulceration or region of recent resection. There are regions of diminished density with necrosis or abscess on the left. Submandibular lymph nodes measure 1.3 cm. Jugular lymph nodes measure 0.9 cm. Normal orbital joaquin and orbital contents. Normal nasal bones and anterior nasal spine. Normal zygomatic arches . Normal visualized paranasal sinuses. CT/Sinus/Facial Bone WITH Contras IMPRESSION: Large soft tissue mass of the lower lip and chin with destruction of the mandible, ulceration or postsurgical defect, and abscess formation. Electronically Signed: Arnaud Berkowitz MD at 15:54 EDT , Service support ,
== END ==
PROVIDERS: Family Provider Internal Medicine; PCP Internal Medicine; Referring Provider Family Medicine Geriatric Medicine; Visit Provider Family Medicine Geriatric Medicine
DX: R22.0 Localized swelling, mass and lump, head (principal); R51 Headache
CPT/HCPCS: 70470; 70487; Q9967; A4216